=== PATIENT | female | born 1940 | race Caucasian/White ===

== ENCOUNTER 2017-01-17 12:29 | Inpatient (IN) ==
[2017-01-17] MEDS ORDERED: 0.9 % Sodium Chloride 500 ML IVC ONE (12:53)
[2017-01-17 13:30] LABS: Hemoglobin 7.4 g/dL (11.5-15.4); Red Cell Distribution Width 15.4 % (11.5-14.5)
[2017-01-17 13:33] LABS: Hematocrit 23.1 % (35.3-44.9); Mean Corpuscular Hemoglobin 28.6 pg (28.0-33.3); Mean Corpuscular Volume 89.2 fL (83.0-100.0); Mean Platelet Volume 10.7 fL (9.4-12.4); Platelet Count 245 K/mcL (140-400); Red Blood Count 2.59 M/mcL (3.82-4.97)
[2017-01-17 13:45] LABS: Alanine Aminotransferase 15 Units/L (0-55); Albumin/Globulin Ratio 0.4 (1.1-2.2); Alkaline Phosphatase 75 Units/L (38-126); Aspartate Amino Transferase 14 Units/L (5-34); BUN/Creatinine Ratio 17 (6-26); Bilirubin,Total 0.3 mg/dL (0.2-1.2); Blood Urea Nitrogen 13 mg/dL (7-20); Calcium 9.3 mg/dL (8.6-10.8); Carbon Dioxide 25 mEq/L (19-29); Chloride 97 mEq/L (98-109); Globulin 4.5 g/dL (2.4-3.5); Glucose 166 mg/dL (70-99); Osmolality,Calculated 276 (280-300); Potassium 3.7 mEq/L (3.5-4.5); Sodium 131 mEq/L (136-145); Total Protein 6.2 g/dL (6.0-8.3); eGFR For African Americans > 60 (> 60); eGFR For Non-African Americans > 60 (> 60)
[2017-01-17 13:46] LABS: Albumin 1.7 g/dL (3.5-5.0)
[2017-01-17 14:15] LABS: Eosinophils # 0.4 K/mcL (0.0-0.6); Lymphocytes # 0.8 K/mcL (0.6-4.6); Monocytes # 0.5 K/mcL (0.0-1.3); Neutrophils # 0.1 K/mcL (1.6-8.9)
[2017-01-17 14:16] LABS: Platelet Estimate Normal (Normal)
--- NOTE | 2017-01-17 14:29 | Emergency Department Note ---
Disposition Referrals: Philippe Scott Jr, MD [Primary Care Provider] - Forms: ED Satisfaction Letter General Adult HPI - General Chief complaint: ED Recheck/Abnormal Lab/Rx Stated complaint: Low Hgb Time Seen by Provider: 01/17/17 12:35 Source: patient, EMS Mode of arrival: private vehicle Limitations: no limitations Nursing Notes Reviewed: Yes Vital Signs Reviewed: Yes - History of Present Illness Pain Scale: 5 - Related Data Home Medications Medication Instructions Recorded Confirmed FLUoxetine HCl [Prozac] 40 mg PO DAILY 09/22/15 03/22/16 Glimepiride [Amaryl] 4 mg PO BID 09/22/15 03/22/16 Metformin [Glucophage] 1,000 mg PO BID 09/22/15 03/22/16 Metoprolol [Lopressor] 25 mg PO BID 09/22/15 03/22/16 Omeprazole [PriLOSEC] 20 mg PO DAILY 09/22/15 03/22/16 PredniSONE [Prednisone] 2.5 mg PO DAILY 09/22/15 03/22/16 Acetaminophen [Tylenol Arthritis] 1 tab PO BID 03/22/16 03/22/16 Amlodipine Besylate 10 mg PO DAILY 03/22/16 03/22/16 Insulin Glargine [Lantus] 30 unit SQ DAILY 03/22/16 03/22/16 Potassium Chloride [K-Tab ER] 20 meq PO DAILY 03/22/16 03/22/16 Allergies Allergy/AdvReac Type Severity Reaction Status Date / Time RODGER Inhibitors AdvReac See Verified 01/17/17 13:54 Comments ampicillin AdvReac See Verified 01/17/17 13:54 Comments lisinopril AdvReac See Verified 01/17/17 13:54 Comments Tetracycline AdvReac See Verified 01/17/17 13:54 Comments Past Medical History - Past Medical History Medical history: Reports: hypertension Surgical history: Reports: colectomy, other Psychiatric history: Reports: no psych history COMPLETION SUPERVISOR history: Reports: no COMPLETION SUPERVISOR history - Social History Smoking Status: Unknown if ever smoked Smokeless Tobacco Status: No Alcohol use: Reports: none Drug use: Reports: none Physical Exam - General Limitations: no limitations General appearance: alert Course Vital Signs Temperature 98.4 F 01/17/17 12:30 Pulse Rate 82 01/17/17 12:30 Respiratory Rate 16 01/17/17 12:30 Blood Pressure 157/71 01/17/17 12:30 O2 Sat by Pulse Oximetry 100 01/17/17 12:30 Temperature 98.4 F 01/17/17 12:30 Pulse Rate 80 01/17/17 13:59 Respiratory Rate 16 01/17/17 13:59 Blood Pressure 144/63 01/17/17 13:59 O2 Sat by Pulse Oximetry 98 01/17/17 13:59 Oxygen Delivery Oxygen Delivery Room Air Medical Decision Making - Lab Data Result diagrams: 01/17/17 13:19 01/17/17 13:19 Lab Results 01/17/17 01/17/17 01/17/17 Range/Units 13:19 13:19 13:19 WBC 1.9 L (4.3-11.1) K/mcL RBC 2.59 L (3.82-4.97) M/mcL Hgb 7.4 L (11.5-15.4) g/dL Hct 23.1 L (35.3-44.9) % MCV 89.2 (83.0-100.0) fL MCH 28.6 (28.0-33.3) pg MCHC 32.0 (31.6-35.5) g/dL RDW 15.4 H (11.5-14.5) % Plt Count 245 (140-400) K/mcL MPV 10.7 (9.4-12.4) fL Seg Neutrophils % 4.0 % Lymphocytes % 44.0 % Monocytes % 28.0 % Eosinophils % 22.0 % Myelocytes % 2.0 H (0) % Neutrophils # 0.1 L (1.6-8.9) K/mcL Lymphocytes # 0.8 (0.6-4.6) K/mcL Monocytes # 0.5 (0.0-1.3) K/mcL Eosinophils # 0.4 (0.0-0.6) K/mcL Platelet Estimate Normal (Normal) Sodium 131 L (136-145) mEq/L Potassium 3.7 (3.5-4.5) mEq/L Chloride 97 L (98-109) mEq/L Carbon Dioxide 25 (19-29) mEq/L BUN 13 (7-20) mg/dL Creatinine 0.77 (0.57-1.11) mg/dL Est GFR ( Amer) > 60 (> 60) Est GFR (Non-Af Amer) > 60 (> 60) BUN/Creatinine Ratio 17 (6-26) Glucose 166 H (70-99) mg/dL Calculated Osmolality 276 L (280-300) Calcium 9.3 (8.6-10.8) mg/dL Total Bilirubin 0.3 (0.2-1.2) mg/dL AST 14 (5-34) Units/L ALT 15 (0-55) Units/L Alkaline Phosphatase 75 (38-126) Units/L Serum Total Protein 6.2 (6.0-8.3) g/dL Albumin 1.7 L (3.5-5.0) g/dL Globulin 4.5 H (2.4-3.5) g/dL Albumin/Globulin Ratio 0.4 L (1.1-2.2) Blood Type A POSITIVE Antibody Screen NEGATIVE
--- NOTE | 2017-01-17 14:41 | Emergency Department Note ---
Disposition Clinical Impression: Chronic neutropenia Anemia Qualifiers: Anemia type: unspecified type Qualified Code(s): D64.9 - Anemia, unspecified Disposition: Admitted As Inpatient Condition: Fair Referrals: Philippe Scott Jr, MD [Primary Care Provider] - Forms: ED Satisfaction Letter Time of Disposition: 14:45 Weakness HPI - General Chief complaint: ED Recheck/Abnormal Lab/Rx Stated complaint: Low Hgb Time Seen by Provider: 01/17/17 12:35 Source: patient, EMS Mode of arrival: private vehicle Limitations: no limitations - History of Present Illness Pt Subjective Complaint: generalized weakness/fatigue Onset (ago): day(s) Duration: constant Location: generalized Pain Severity: none Pain Scale: 5 Improves with: rest Worsens with: exertion Associated symptoms: Reports: shortness of breath. Denies: dark stools - Related Data Home Medications Medication Instructions Recorded Confirmed FLUoxetine HCl [Prozac] 40 mg PO DAILY 09/22/15 03/22/16 Glimepiride [Amaryl] 4 mg PO BID 09/22/15 03/22/16 Metformin [Glucophage] 1,000 mg PO BID 09/22/15 03/22/16 Metoprolol [Lopressor] 25 mg PO BID 09/22/15 03/22/16 Omeprazole [PriLOSEC] 20 mg PO DAILY 09/22/15 03/22/16 PredniSONE [Prednisone] 2.5 mg PO DAILY 09/22/15 03/22/16 Acetaminophen [Tylenol Arthritis] 1 tab PO BID 03/22/16 03/22/16 Amlodipine Besylate 10 mg PO DAILY 03/22/16 03/22/16 Insulin Glargine [Lantus] 30 unit SQ DAILY 03/22/16 03/22/16 Potassium Chloride [K-Tab ER] 20 meq PO DAILY 03/22/16 03/22/16 Allergies Allergy/AdvReac Type Severity Reaction Status Date / Time RODGER Inhibitors AdvReac See Verified 01/17/17 13:54 Comments ampicillin AdvReac See Verified 01/17/17 13:54 Comments lisinopril AdvReac See Verified 01/17/17 13:54 Comments Tetracycline AdvReac See Verified 01/17/17 13:54 Comments All systems ED: reviewed and negative except as stated. Constitutional: Denies: fever, chills ENT ED: Denies: ear pain, throat pain, congestion Cardiovascular: Reports: dyspnea on exertion. Denies: chest pain, palpitations Respiratory: Denies: cough, wheezes Gastrointestinal: Reports: other (Patient denies any discoloration of her stool through her colostomy. In particular she denies seeing any blood and she denies any black discoloration.). Denies: abdominal pain, nausea, vomiting Genitourinary: Denies: hematuria Musculoskeletal: Denies: back pain Integumentary: Denies: rash Neurological: Denies: headache Endocrine: Reports: fatigue Hematological/Lymphatic: Denies: easy bleeding Past Medical History - Past Medical History Attestation: Yes The following information was validated with the patient. Source: patient, old records reviewed, obtained from family, nursing notes reviewed Medical history: Reports: hypertension, other (Chronic neutropenia of unknown etiology. She sees hematology oncology and gets Neupogen shots. She has never been known to be anemic according to family and according to old lab values) Surgical history: Reports: colectomy, other Psychiatric history: Reports: no psych history WRITER PRODUCER history: Reports: no WRITER PRODUCER history - Social History Smoking Status: Unknown if ever smoked Smokeless Tobacco Status: No Alcohol use: Reports: none Drug use: Reports: none Physical Exam - General Limitations: no limitations General appearance: alert, other (The patient looks wiped out) - Head Head exam: atraumatic, normocephalic - Eye Eye exam: Present: normal appearance, PERRL, EOMI - ENT ENT exam: normal exam, normal oropharynx, mucous membranes moist, normal external ear exam - Neck Neck exam: Present: normal inspection, full ROM - Chest Chest inspection: Present: normal inspection, symmetric chest wall rise. Absent : tenderness - Respiratory Respiratory exam: Present: normal lung sounds bilaterally. Absent: respiratory distress, wheezes - Cardiovascular Cardiovascular exam: Present: regular rate, normal rhythm, normal heart sounds - Abdominal Exam Abdominal exam: Present: soft, Non-Tender, normal bowel sounds, other ([place] site looks clean) - Rectal Exam Rectal exam: Present: other (The patient has a colostomy. The stool is brown and liquidy. I sent off a Hemoccult specimen.) - Extremities Exam Extremities exam: Present: normal inspection. Absent: pedal edema - Neurological Exam Neurological exam: Present: alert, oriented X3 - Psychiatric Psychiatric exam: Present: normal affect, normal mood - Skin Skin exam: Present: warm, dry. Absent: rash Course Course Narrative: Patient was seen by the physician residential living assistant, Jacoby Winter, prior to my arrival to the department. I took over the case. Patient had some routine labs done at the residential where she was and was found to be anemic. Those labs were repeated and she was thus sent here. We have already got a hemoglobin back at 7.4. Patient sounds pretty symptomatic with it and therefore I think we need to transfuse her. Questions whether this is related to her recent surgery or whether this is a new issue. She has a history of neutropenia but that is of unknown etiology. She had bone marrow biopsy done back in 2000 which did not show any evidence of leukemia. By history she denies any blood loss. We wait for the Hemoccult to come back to see if there is any GI loss although we may see some blood positive Hemoccult because of the recent revision of the colostomy. The stool itself does not look like a major source of blood loss. Patient will need to be admitted for blood transfusion and workup as to the cause of the blood loss. - Reevaluation(s) Reevaluation #1: Hemoccult was negative. Time: 15:12 - Consultations Consultation #1: Maribel nurse practitioner. I discussed the case with the hospitalist service. The patient has been accepted for transfusion and workup of this anemia. Time: 15:12 Vital Signs Temperature 98.4 F 01/17/17 12:30 Pulse Rate 82 01/17/17 12:30 Respiratory Rate 16 01/17/17 12:30 Blood Pressure 157/71 01/17/17 12:30 O2 Sat by Pulse Oximetry 100 01/17/17 12:30 Temperature 98.4 F 01/17/17 12:30 Pulse Rate 80 01/17/17 13:59 Respiratory Rate 16 01/17/17 13:59 Blood Pressure 144/63 01/17/17 13:59 O2 Sat by Pulse Oximetry 98 01/17/17 13:59 Oxygen Delivery Oxygen Delivery Room Air Weakness - Medical Records Medical records reviewed: Yes I reviewed the patient's medical records. - Lab Data Lab results reviewed: Yes I reviewed the patient's lab results. Result diagrams: 01/17/17 13:19 01/17/17 13:19 Lab Results 01/17/17 01/17/17 01/17/17 Range/Units 13:19 13:19 13:19 WBC 1.9 L (4.3-11.1) K/mcL RBC 2.59 L (3.82-4.97) M/mcL Hgb 7.4 L (11.5-15.4) g/dL Hct 23.1 L (35.3-44.9) % MCV 89.2 (83.0-100.0) fL MCH 28.6 (28.0-33.3) pg MCHC 32.0 (31.6-35.5) g/dL RDW 15.4 H (11.5-14.5) % Plt Count 245 (140-400) K/mcL MPV 10.7 (9.4-12.4) fL Seg Neutrophils % 4.0 % Lymphocytes % 44.0 % Monocytes % 28.0 % Eosinophils % 22.0 % Myelocytes % 2.0 H (0) % Neutrophils # 0.1 L (1.6-8.9) K/mcL Lymphocytes # 0.8 (0.6-4.6) K/mcL Monocytes # 0.5 (0.0-1.3) K/mcL Eosinophils # 0.4 (0.0-0.6) K/mcL Platelet Estimate Normal (Normal) Sodium 131 L (136-145) mEq/L Potassium 3.7 (3.5-4.5) mEq/L Chloride 97 L (98-109) mEq/L Carbon Dioxide 25 (19-29) mEq/L BUN 13 (7-20) mg/dL Creatinine 0.77 (0.57-1.11) mg/dL Est GFR ( Amer) > 60 (> 60) Est GFR (Non-Af Amer) > 60 (> 60) BUN/Creatinine Ratio 17 (6-26) Glucose 166 H (70-99) mg/dL Calculated Osmolality 276 L (280-300) Calcium 9.3 (8.6-10.8) mg/dL Total Bilirubin 0.3 (0.2-1.2) mg/dL AST 14 (5-34) Units/L ALT 15 (0-55) Units/L Alkaline Phosphatase 75 (38-126) Units/L Serum Total Protein 6.2 (6.0-8.3) g/dL Albumin 1.7 L (3.5-5.0) g/dL Globulin 4.5 H (2.4-3.5) g/dL Albumin/Globulin Ratio 0.4 L (1.1-2.2) Stool Occult Blood (Negative) Blood Type A POSITIVE Antibody Screen NEGATIVE Crossmatch See Detail 01/17/17 Range/Units 14:30 WBC (4.3-11.1) K/mcL RBC (3.82-4.97) M/mcL Hgb (11.5-15.4) g/dL Hct (35.3-44.9) % MCV (83.0-100.0) fL MCH (28.0-33.3) pg MCHC (31.6-35.5) g/dL RDW (11.5-14.5) % Plt Count (140-400) K/mcL MPV (9.4-12.4) fL Seg Neutrophils % % Lymphocytes % % Monocytes % % Eosinophils % % Myelocytes % (0) % Neutrophils # (1.6-8.9) K/mcL Lymphocytes # (0.6-4.6) K/mcL Monocytes # (0.0-1.3) K/mcL Eosinophils # (0.0-0.6) K/mcL Platelet Estimate (Normal) Sodium (136-145) mEq/L Potassium (3.5-4.5) mEq/L Chloride (98-109) mEq/L Carbon Dioxide (19-29) mEq/L BUN (7-20) mg/dL Creatinine (0.57-1.11) mg/dL Est GFR ( Amer) (> 60) Est GFR (Non-Af Amer) (> 60) BUN/Creatinine Ratio (6-26) Glucose (70-99) mg/dL Calculated Osmolality (280-300) Calcium (8.6-10.8) mg/dL Total Bilirubin (0.2-1.2) mg/dL AST (5-34) Units/L ALT (0-55) Units/L Alkaline Phosphatase (38-126) Units/L Serum Total Protein (6.0-8.3) g/dL Albumin (3.5-5.0) g/dL Globulin (2.4-3.5) g/dL Albumin/Globulin Ratio (1.1-2.2) Stool Occult Blood Negative (Negative) Blood Type Antibody Screen Crossmatch
[2017-01-17] MEDS ORDERED: Lidocaine -MPF 1% 2 ML VIAL ID PRN (15:15)
[2017-01-17] MEDS ORDERED: Naloxone 0.4 MG/ML INJ IVP PRN (19:39)
--- NOTE | 2017-01-17 20:09 | Internal Med History&Physical ---
<RandolphMarietta M - Last Filed: 01/18/17 00:03> Date of Encounter: 01/17/17 Time of Encounter: 19:53 Assessment and Plan (1) Anemia Current visit: Yes Status: Acute Patient with Hgb of 7.4. She had Hip fracture with surgical repair 3 weeks ago. Stool occult is negative. Possibly acute blood loss anemia related to recent surgery. Hold Lovenox for concern for bleeding Transfuse 2 units and recheck CBC in the morning Check iron studies with pre-transfusion bloodwork, B12, Folate in the morning. Qualifiers: Anemia type: unspecified type Qualified Code(s): D64.9 - Anemia, unspecified (2) Chronic neutropenia Current visit: Yes Status: Acute Patient with chronic neutropenia, eing followed by Heme/onc as an outpatient and gets periodic neupogen injections. WBC of 1.9 is consistent with her baseline. 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 Ostomy appears beefy red and output is soft and brown. Colostomy care ordered. (4) Type 2 diabetes mellitus Current visit: No Status: Acute diabetic diet hold home metformin and glimeperide check blood sugars ACHS sliding scale correction dose insulin ACHS hypoglycemic protocol. Qualifiers: Diabetes mellitus complication status: without complication Diabetes mellitus longterm insulin use: without bed bug exterminator use Qualified Code(s): E11.9 - Type 2 diabetes mellitus without complications (5) DVT prophylaxis Current visit: Yes Status: Acute Ambulate with assistance. anti-embolic stockings She has been on Lovenox for DVT prophylaxis post orthosurgery. However, with anemia and concern for bleeding, will hold for now. Internal Medicine - H&P: HPI Chief complaint: weakness and fatigue Admitted From: Emergency Dept Plans for Post Hospital Care: Transfer Shelter Facility History of present illness: Ms. Hardy is a 76 year old female with hypertension, type 2 diabetes, rheumatoid arthritis, chronic neutropenia, Colectomy with colostomy for diverticulitis, and recent right hip fracture with surgical repair 3 weeks ago, who was sent to the ED today by her SNF for low hgb. She reports she has been feeling weak, tired and short of breath. She denies any nausea, vomiting, headache, chest pain, palpitations. She denies any signs or symptoms of bleeding. Her colostomy output has been normal, brown for her. She has been on lovenox for post-ortho surgery DVT prophylaxis. Evaluation in the ED showed Hgb of 7.4. WBC of 1.9 consistent with her baseline, she gets neupogen shots with heme/onc on a regular basis. Stool hemoccult was negative. On exam, patient is drowsy, but arousable, oriented, in no distress. Lungs are clear to auscultation bilaterally, heart has regular rate and rhythm. Past Med Surg Social Fam HX - Past Medical History Medical history: diabetes, hypertension, RA, other (chronic neutropenia) Psychiatric history: no psych history - Past Surgical History Surgical History: colectomy, colostomy, hip replacement, other - Social History Smoking Status: Unknown if ever smoked Smokeless Tobacco Status: No Alcohol use: none Drug use: none Internal Medicine - H&P: Meds FLUoxetine HCl [Prozac] 40 mg PO DAILY 09/22/15 [History] Glimepiride [Amaryl] 4 mg PO QAM 09/22/15 [History] Metformin [Glucophage] 1,000 mg PO BID 09/22/15 [History] Metoprolol [Lopressor] 25 mg PO BID 09/22/15 [History] Omeprazole [PriLOSEC] 20 mg PO DAILY 09/22/15 [History] Amlodipine Besylate 10 mg PO DAILY 03/22/16 [History] Potassium Chloride [K-Tab ER] 20 meq PO QPM 03/22/16 [History] Calcium Citrate 400 mg PO TID 01/17/17 [History] Cholecalciferol (D-3) [Vitamin D] 2,000 unit PO DAILY 01/17/17 [History] Docusate [Colace] 100 mg PO BID 01/17/17 [History] Enoxaparin [Lovenox] 40 mg SQ DAILY 01/17/17 [History] Fluconazole [Diflucan] 200 mg PO DAILY 01/17/17 [History] Levofloxacin [Levaquin] 500 mg PO DAILY 01/17/17 [History] Magnesium 200 mg PO DAILY 01/17/17 [History] Metoclopramide HCl 5 mg PO TID 01/17/17 [History] OxyCODONE Immed Rel [Roxicodone 5 MG] 5 mg PO Q4HR PRN 01/17/17 [History] Sennosides [Senna] 8.6 mg PO BID 01/17/17 [History] Sucralfate [Carafate] 1 gm PO TIDAC 01/17/17 [History] Allergies RODGER Inhibitors Adverse Reaction (Verified 01/17/17 13:54) See Comments UNSURE ampicillin Adverse Reaction (Verified 01/17/17 13:54) See Comments lisinopril Adverse Reaction (Verified 01/17/17 13:54) See Comments Tetracycline Adverse Reaction (Verified 01/17/17 13:54) See Comments All Systems PM: A 10-system review of systems was performed and is negative for pertinent findings except as documented above in the HPI. - Constitutional Constitutional: fatigue, weakness, no chills, no fever(s), no night sweats - EENT Eyes: no change in vision, no discharge, no pain, no photophobia Ears: no ear discharge, no ear pain, no tinnitus Nose, mouth and throat: no dysphagia, no nasal discharge, no neck pain, no sore throat - Cardiovascular Cardiovascular ROS IM: dyspnea on exertion, no chest pain, no diaphoresis, no dyspnea, no lightheadedness, no palpitations, no syncope - Respiratory Respiratory: dyspnea on exertion, no cough, no dyspnea, no wheezing, no excessive phlegm production - Gastrointestinal Gastrointestinal: no abdominal pain, no diarrhea, no hematemesis, no hematochezia, no melena, no nausea, no vomiting - Genitourinary Genitourinary: no change in urinary stream, no dysuria, no flank pain, no hematuria - Musculoskeletal Musculoskeletal ROS IM: no numbness, no tingling - Integumentary Integumentary IM: no rash, no unusual bruising - Neurological Neurological ROS: no confusion, no convulsions, no focal weakness, no numbness, no tingling, no tremor(s) - Hematologic/Lymphatic Hematologic/Lymphatic: no easy bruising - Constitutional Vitals: Temp Pulse Resp BP Pulse Ox 98.3 F 70 16 142/64 95 01/17/17 18:09 01/17/17 18:09 01/17/17 18:09 01/17/17 18:09 01/17/17 18:07 General appearance: Present: A&O X 3, no acute distress - Head Head exam: Present: atraumatic, normocephalic - Eye Eye exam: Present: PERRL, conjuntiva pink, sclera anicteric Pupils: Present: PERRL - Neck Neck exam general surgery: Present: supple, trachea midline. Absent: lymphadenopathy - Respiratory Respiratory exam: Present: CTAB. Absent: accessory muscle use, rales, rhonchi, wheezes - Cardiovascular Cardiovascular exam: Present: RRR, +S1, +S2. Absent: diastolic murmur, gallop, rubs, systolic murmur - GI/Abdominal GI/Abdominal exam: Present: normal bowel sounds, soft, no peritoneal signs. Absent: distended, tenderness - Extremities Exam Extremities exam: Present: warm, radial pulses palpable and symetrical. Absent : calf tenderness, cyanotic, pedal edema - Neurological Exam Neurological exam: Present: CN II-XII intact, oriented X3, no focal deficits. Absent: facial droop, speech deficit - Skin Skin exam: Present: dry, intact Internal Med - H&P Results - Labs CBC & Chem 7: 01/17/17 13:19 01/17/17 13:19 Labs: All Lab Results (24 Hours) 01/17/17 01/17/17 01/17/17 Range/Units 13:19 13:19 13:19 WBC 1.9 L (4.3-11.1) K/mcL RBC 2.59 L (3.82-4.97) M/mcL Hgb 7.4 L (11.5-15.4) g/dL Hct 23.1 L (35.3-44.9) % MCV 89.2 (83.0-100.0) fL MCH 28.6 (28.0-33.3) pg MCHC 32.0 (31.6-35.5) g/dL RDW 15.4 H (11.5-14.5) % Plt Count 245 (140-400) K/mcL MPV 10.7 (9.4-12.4) fL Seg Neutrophils % 4.0 % Lymphocytes % 44.0 % Monocytes % 28.0 % Eosinophils % 22.0 % Myelocytes % 2.0 H (0) % Neutrophils # 0.1 L (1.6-8.9) K/mcL Lymphocytes # 0.8 (0.6-4.6) K/mcL Monocytes # 0.5 (0.0-1.3) K/mcL Eosinophils # 0.4 (0.0-0.6) K/mcL Platelet Estimate Normal (Normal) Sodium 131 L (136-145) mEq/L Potassium 3.7 (3.5-4.5) mEq/L Chloride 97 L (98-109) mEq/L Carbon Dioxide 25 (19-29) mEq/L BUN 13 (7-20) mg/dL Creatinine 0.77 (0.57-1.11) mg/dL Est GFR ( Amer) > 60 (> 60) Est GFR (Non-Af Amer) > 60 (> 60) BUN/Creatinine Ratio 17 (6-26) Glucose 166 H (70-99) mg/dL Calculated Osmolality 276 L (280-300) Calcium 9.3 (8.6-10.8) mg/dL Total Bilirubin 0.3 (0.2-1.2) mg/dL AST 14 (5-34) Units/L ALT 15 (0-55) Units/L Alkaline Phosphatase 75 (38-126) Units/L Serum Total Protein 6.2 (6.0-8.3) g/dL Albumin 1.7 L (3.5-5.0) g/dL Globulin 4.5 H (2.4-3.5) g/dL Albumin/Globulin Ratio 0.4 L (1.1-2.2) Stool Occult Blood (Negative) Blood Type A POSITIVE Antibody Screen NEGATIVE Crossmatch See Detail 01/17/17 Range/Units 14:30 WBC (4.3-11.1) K/mcL RBC (3.82-4.97) M/mcL Hgb (11.5-15.4) g/dL Hct (35.3-44.9) % MCV (83.0-100.0) fL MCH (28.0-33.3) pg MCHC (31.6-35.5) g/dL RDW (11.5-14.5) % Plt Count (140-400) K/mcL MPV (9.4-12.4) fL Seg Neutrophils % % Lymphocytes % % Monocytes % % Eosinophils % % Myelocytes % (0) % Neutrophils # (1.6-8.9) K/mcL Lymphocytes # (0.6-4.6) K/mcL Monocytes # (0.0-1.3) K/mcL Eosinophils # (0.0-0.6) K/mcL Platelet Estimate (Normal) Sodium (136-145) mEq/L Potassium (3.5-4.5) mEq/L Chloride (98-109) mEq/L Carbon Dioxide (19-29) mEq/L BUN (7-20) mg/dL Creatinine (0.57-1.11) mg/dL Est GFR ( Amer) (> 60) Est GFR (Non-Af Amer) (> 60) BUN/Creatinine Ratio (6-26) Glucose (70-99) mg/dL Calculated Osmolality (280-300) Calcium (8.6-10.8) mg/dL Total Bilirubin (0.2-1.2) mg/dL AST (5-34) Units/L ALT (0-55) Units/L Alkaline Phosphatase (38-126) Units/L Serum Total Protein (6.0-8.3) g/dL Albumin (3.5-5.0) g/dL Globulin (2.4-3.5) g/dL Albumin/Globulin Ratio (1.1-2.2) Stool Occult Blood Negative (Negative) Blood Type Antibody Screen Crossmatch <Janell Rosario R - Last Filed: 01/18/17 07:31> Internal Medicine - H&P: HPI History of present illness: Ms. Hardy is a 76 year old female All Systems PM: A 10-system review of systems was performed and is negative for pertinent findings except as documented above in the HPI. - Constitutional Vitals: Temp Pulse Resp BP Pulse Ox 97.9 F 84 16 156/77 96 01/18/17 07:02 01/18/17 07:02 01/18/17 07:02 01/18/17 07:02 01/18/17 07:02 Internal Med - H&P Results - Labs CBC & Chem 7: 01/17/17 13:19 01/17/17 13:19 - Attending Attestation I evaluated the patient and my medical decision-making was reviewed with the WHIP OPERATOR/ Advanced Practice Nurse. I agree with the documented findings, disposition and treatment plan as described except to the extent set forth below. 76-year-old female with recent history of right hip fracture s/p surgery. Was feeling weak and tired. Was anemic with hemoglobin of 6.8. Labs at this admission showed Hb of 7.4 and WBC of 1.9 (chronic). Fecal occult blood was negative. O/E: Not in acute distress. Systolic murmur present. Lungs clear to auscultation. Normocytic anemia: Possibly post operative from recent surgery. Check iron profile/vit B12 and folate. Transfuse PRBC. Hold Lovenox, until bleeding source is excluded. Can resume Lovenox, if no source of bleeding.
[2017-01-17] MEDS ORDERED: *HR* Dextrose 50 % in Water (Syg) 50 ML SYRINGE IVP PRN (20:21)
[2017-01-17] MEDS ORDERED: D5% in Water 1,000 ML IV PRN (20:21)
[2017-01-17] MEDS ORDERED: Dextrose Gel 15 GM PO PRN ×2 (20:21)
[2017-01-17] MEDS: Insulin LISPRO 300 UNITS/3 ML VIAL SQ SCH (22:03)
[2017-01-17] MEDS: Sennosides 8.6 MG TABLET PO SCH (22:03)
[2017-01-17] MEDS: Pantoprazole 40 MG VIAL IVP SCH (22:03)
[2017-01-17] MEDS: *HR* OxyCODONE Immed Rel 5 MG TABLET PO PRN (22:48)
[2017-01-17] MEDS ORDERED: 0.9 % Sodium Chloride 250 ML ONE (22:59)
[2017-01-17 23:43] LABS: % Iron Saturation 7 % (15-50); Iron 14 mcg/dL (50-170); Transferrin 140 mg/dL (180-382)
[2017-01-18] MEDS ORDERED: Acetaminophen 325 MG TABLET PO PRN (04:10)
[2017-01-18 08:35] LABS: Red Cell Distribution Width 14.8 % (11.5-14.5)
[2017-01-18 08:38] LABS: Hematocrit 29.1 % (35.3-44.9); Hemoglobin 9.8 g/dL (11.5-15.4); Immature Platelets 2.6 % (1.1-6.1); Mean Corpuscular HGB Conc 33.7 g/dL (31.6-35.5); Mean Corpuscular Hemoglobin 29.9 pg (28.0-33.3); Mean Corpuscular Volume 88.7 fL (83.0-100.0); Mean Platelet Volume 10.5 fL (9.4-12.4); Platelet Count 247 K/mcL (140-400); Red Blood Count 3.28 M/mcL (3.82-4.97)
[2017-01-18 08:39] LABS: INR 1.2; Prothrombin Time 13.1 Seconds (9.4-12.1)
[2017-01-18 08:47] LABS: BUN/Creatinine Ratio 13 (6-26); Blood Urea Nitrogen 9 mg/dL (7-20); Calcium 8.7 mg/dL (8.6-10.8); Carbon Dioxide 25 mEq/L (19-29); Chloride 99 mEq/L (98-109); Glucose 162 mg/dL (70-99); Osmolality,Calculated 276 (280-300); Potassium 3.7 mEq/L (3.5-4.5); Sodium 132 mEq/L (136-145); eGFR For African Americans > 60 (> 60); eGFR For Non-African Americans > 60 (> 60)
[2017-01-18 09:08] LABS: Large Platelets Present (Not Present); Platelet Estimate Normal (Normal)
[2017-01-18 09:10] LABS: Eosinophils # 0.1 K/mcL (0.0-0.6); Lymphocytes # 0.5 K/mcL (0.6-4.6); Monocytes # 0.7 K/mcL (0.0-1.3); Neutrophils # 0.3 K/mcL (1.6-8.9)
[2017-01-18] MEDS: Pantoprazole 40 MG VIAL IVP SCH (09:18)
[2017-01-18] MEDS: Insulin LISPRO 300 UNITS/3 ML VIAL SQ SCH ×4 (09:18→21:59)
[2017-01-18] MEDS: FLUoxetine 20 MG CAPSULE PO SCH (09:19)
[2017-01-18] MEDS: Sucralfate 1 GM TABLET PO SCH ×3 (09:20→17:09)
[2017-01-18] MEDS: Cholecalciferol (D-3) 1,000 UNIT TABLET PO SCH (09:20)
[2017-01-18] MEDS: amLODIPine 5 MG TABLET PO SCH (09:21)
[2017-01-18] MEDS: Magnesium Oxide 400 MG TABLET PO SCH (09:21)
[2017-01-18] MEDS: Fluconazole 100 MG TABLET PO SCH (09:21)
[2017-01-18] MEDS: Sennosides 8.6 MG TABLET PO SCH ×2 (09:22→20:20)
[2017-01-18] MEDS: Lactobacillus 1 EACH CAP.SPRINK PO SCH ×2 (09:22→20:19)
[2017-01-18] MEDS: levoFLOXacin 500 MG TABLET PO SCH (09:22)
--- NOTE | 2017-01-18 09:45 | Internal Med Progress Note ---
Date of Encounter: 01/18/17 Time of Encounter: 09:00 - Assessment and plan (1) Anemia Current Visit: Yes Status: Acute Assessment and plan: Etiology is undetermine. Differential diagnosis included recent surgical blood loss for hip surgery one week ago in [facility], or chronic iron deficiency anemia. We will obtain [facility] medical record. Hemoglobin elevated after transfusion. Guaiac test negative. Recent colonoscopy 11 months ago. Qualifiers: Anemia type: unspecified type Qualified Code(s): D64.9 - Anemia, unspecified (2) Hypertension Current Visit: Yes Status: Acute Assessment and plan: Continue home medications. Qualifiers: Hypertension type: essential hypertension Qualified Code(s): I10 - Essential (primary) hypertension (3) Chronic neutropenia Current Visit: Yes Status: Acute Assessment and plan: Stable. Closely monitor (4) DVT prophylaxis Current Visit: Yes Status: Acute Assessment and plan: SCD, lovenox subcutaneously. 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 Her past medical history is significant for diabetes, hypertension, diverticulitis S/P colostomy, hip fracture S/P surgery on last Sunday in [facility]. Patient was seen and examined. She is still weak. Had 2 units of blood transfusion, hemoglobin 9.8 now. Previous chart reviewed, her hemoglobin level is 12 in Feb 2016. Iron deficiency with iron level 14. Not sure low hemoglobin is due to recent surgery blood loss or chronic iron deficiency. We will obtain [facility] medical record. Patient had a colonoscopy done 11 months ago, negative to malignancy. - Constitutional Vitals: Temp Pulse Resp BP Pulse Ox 97.9 F 84 16 156/77 96 01/18/17 07:02 01/18/17 07:02 01/18/17 07:02 01/18/17 07:02 01/18/17 07:02 General appearance: Present: A&O X 3, no acute distress, answers questions appropriately - Head Head exam: Present: atraumatic, normocephalic - Eye Eye exam: Present: PERRL, conjuntiva pink, sclera anicteric Pupils: Present: PERRL - Neck Neck exam general surgery: Present: supple, trachea midline. Absent: lymphadenopathy - Respiratory Respiratory exam: Present: CTAB. Absent: accessory muscle use, rales, rhonchi, wheezes - Cardiovascular Cardiovascular exam: Present: RRR, +S1, +S2. Absent: diastolic murmur, gallop, rubs, systolic murmur - GI/Abdominal GI/Abdominal exam: Present: normal bowel sounds, soft, no peritoneal signs. Absent: distended, tenderness Additional comments: Colostomy in place. - Extremities Exam Extremities exam: Present: warm, radial pulses palpable and symetrical. Absent : calf tenderness, cyanotic, pedal edema - Neurological Exam Neurological exam: Present: CN II-XII intact, oriented X3, no focal deficits. Absent: pronater drift, facial droop, speech deficit - Skin Skin exam: Present: dry, intact Internal Medicine: Result - Labs CBC & Chem 7: 01/18/17 08:24 01/18/17 08:24 Labs: Short CBC 01/18/17 Range/Units 08:24 WBC 1.5 L (4.3-11.1) K/mcL Hgb 9.8 L D (11.5-15.4) g/dL Hct 29.1 L (35.3-44.9) % Plt Count 247 (140-400) K/mcL Neutrophils # 0.3 L (1.6-8.9) K/mcL BMP 01/18/17 08:24 Sodium 132 L Potassium 3.7 Chloride 99 Carbon Dioxide 25 BUN 9 Creatinine 0.70 Glucose 162 H Calcium 8.7 - ABG Interpretation ABG results: PT/INR, D-dimer PT 13.1 Seconds (9.4-12.1) H 01/18/17 08:24 Consult Discharge Plan - Plan Referrals: Philippe Scott Jr, MD [Primary Care Provider] -
[2017-01-18 10:29] LABS: Folate 11.1 ng/mL (7.0-31.4)
[2017-01-18] MEDS ORDERED: *HR* Heparin 5,000 UNIT/ML VIAL SQ SCH (18:00)
[2017-01-18] MEDS: *HR* OxyCODONE Immed Rel 5 MG TABLET PO PRN (20:19)
[2017-01-19] MEDS: *HR* OxyCODONE Immed Rel 5 MG TABLET PO PRN ×3 (02:44→21:58)
[2017-01-19 05:24] LABS: Hemoglobin 9.6 g/dL (11.5-15.4); Mean Corpuscular Hemoglobin 29.1 pg (28.0-33.3); Red Cell Distribution Width 14.8 % (11.5-14.5)
[2017-01-19 05:26] LABS: Mean Corpuscular HGB Conc 33.1 g/dL (31.6-35.5); Mean Corpuscular Volume 87.9 fL (83.0-100.0); Mean Platelet Volume 10.5 fL (9.4-12.4); Platelet Count 242 K/mcL (140-400)
[2017-01-19] MEDS: *HR* Enoxaparin 40 MG/0.4 ML SYRINGE SQ SCH (05:45)
[2017-01-19 05:49] LABS: BUN/Creatinine Ratio 15 (6-26); Blood Urea Nitrogen 11 mg/dL (7-20); Calcium 8.7 mg/dL (8.6-10.8); Carbon Dioxide 26 mEq/L (19-29); Chloride 96 mEq/L (98-109); Glucose 133 mg/dL (70-99); Osmolality,Calculated 271 (280-300); Sodium 130 mEq/L (136-145); eGFR For African Americans > 60 (> 60); eGFR For Non-African Americans > 60 (> 60)
[2017-01-19 06:28] LABS: Eosinophils # 0.2 K/mcL (0.0-0.6); Lymphocytes # 0.6 K/mcL (0.6-4.6); Monocytes # 0.4 K/mcL (0.0-1.3); Neutrophils # 0.4 K/mcL (1.6-8.9); Platelet Estimate Normal (Normal)
[2017-01-19] MEDS: Pantoprazole 40 MG VIAL IVP SCH (08:39)
[2017-01-19] MEDS: Sennosides 8.6 MG TABLET PO SCH ×2 (08:39→21:55)
[2017-01-19] MEDS: Insulin LISPRO 300 UNITS/3 ML VIAL SQ SCH ×4 (08:39→22:06)
[2017-01-19] MEDS: FLUoxetine 20 MG CAPSULE PO SCH (08:39)
[2017-01-19] MEDS: Fluconazole 100 MG TABLET PO SCH (08:40)
[2017-01-19] MEDS: Lactobacillus 1 EACH CAP.SPRINK PO SCH ×2 (08:40→21:54)
[2017-01-19] MEDS: Cholecalciferol (D-3) 1,000 UNIT TABLET PO SCH (08:40)
[2017-01-19] MEDS: levoFLOXacin 500 MG TABLET PO SCH (08:40)
[2017-01-19] MEDS: Sucralfate 1 GM TABLET PO SCH ×3 (08:40→16:57)
[2017-01-19] MEDS: Magnesium Oxide 400 MG TABLET PO SCH (08:40)
[2017-01-19] MEDS: amLODIPine 5 MG TABLET PO SCH (08:41)
[2017-01-19] MEDS ORDERED: 0.9 % Sodium Chloride 1,000 ML IVC SCH (12:45)
--- NOTE | 2017-01-19 17:41 | Internal Med Progress Note ---
Date of Encounter: 01/19/17 Time of Encounter: 10:00 - Assessment and plan (1) Anemia Current Visit: Yes Status: Acute Assessment and plan: Etiology is undetermine. Differential diagnosis included recent surgical blood loss for hip surgery one week ago in [facility], or chronic iron deficiency anemia. We will obtain [facility] medical record. Hemoglobin elevated after transfusion and stable. Guaiac test negative. Recent colonoscopy 11 months ago, unremarkable. Will order CT Abd and chest. Check UA. Obtain [facility] medical record. Qualifiers: Anemia type: iron deficiency Iron deficiency anemia type: other iron deficiency Qualified Code(s): D50.8 - Other iron deficiency anemias (2) Hypertension Current Visit: Yes Status: Acute Assessment and plan: Continue home medications. Qualifiers: Hypertension type: essential hypertension Qualified Code(s): I10 - Essential (primary) hypertension (3) Chronic neutropenia Current Visit: Yes Status: Acute Assessment and plan: Stable. Closely monitor (4) DVT prophylaxis Current Visit: Yes Status: Acute Assessment and plan: SCD, lovenox subcutaneously. 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 Her past medical history is significant for diabetes, hypertension, diverticulitis S/P colostomy, hip fracture S/P surgery on last Sunday in [facility]. Patient was seen and examined. She still feels weak. Has good appetite and intake. H/H stable after transfusion. We will obtain [facility] medical record to see pre-surgery hemoglobin. Will order CT abd/pelvis and chest to screen malignancy. FOBT negative, will check UA. - Constitutional Vitals: Temp Pulse Resp BP Pulse Ox 99.3 F 82 16 137/51 95 01/19/17 15:46 01/19/17 15:46 01/19/17 15:46 01/19/17 15:46 01/19/17 15:46 General appearance: Present: A&O X 3, no acute distress, answers questions appropriately - Head Head exam: Present: atraumatic, normocephalic - Eye Eye exam: Present: PERRL, conjuntiva pink, sclera anicteric Pupils: Present: PERRL - Neck Neck exam general surgery: Present: supple, trachea midline. Absent: lymphadenopathy - Respiratory Respiratory exam: Present: CTAB. Absent: accessory muscle use, rales, rhonchi, wheezes - Cardiovascular Cardiovascular exam: Present: RRR, +S1, +S2. Absent: diastolic murmur, gallop, rubs, systolic murmur - GI/Abdominal GI/Abdominal exam: Present: normal bowel sounds, soft, no peritoneal signs. Absent: distended, tenderness - Extremities Exam Extremities exam: Present: warm, radial pulses palpable and symetrical. Absent : calf tenderness, cyanotic, pedal edema - Neurological Exam Neurological exam: Present: CN II-XII intact, oriented X3, no focal deficits. Absent: pronater drift, facial droop, speech deficit - Skin Skin exam: Present: dry, intact Internal Medicine: Result - Labs CBC & Chem 7: 01/19/17 05:11 01/19/17 05:11 Labs: Short CBC 01/19/17 Range/Units 05:11 WBC 1.6 L (4.3-11.1) K/mcL Hgb 9.6 L (11.5-15.4) g/dL Hct 29.0 L (35.3-44.9) % Plt Count 242 (140-400) K/mcL Neutrophils # 0.4 L (1.6-8.9) K/mcL BMP 01/19/17 05:11 Sodium 130 L Potassium 4.0 Chloride 96 L Carbon Dioxide 26 BUN 11 Creatinine 0.74 Glucose 133 H Calcium 8.7 - ABG Interpretation ABG results: PT/INR, D-dimer PT 13.1 Seconds (9.4-12.1) H 01/18/17 08:24 - Impressions Impressions Abdomen/Pelvis CT 01/19/17 15:00 IMPRESSION: 1. There is an acute comminuted right proximal femur fracture status post ORIF with posttraumatic/surgical soft tissue changes of the hip. Probable acute on chronic mild T7 compression fracture with no significant posterior cortical displacement. 2. There is no dominant body wall or intrathoracic/abdominal/pelvic hematoma. 3. Cardiomegaly with atherosclerosis. There is mild thoracic atelectasis with no acute congestive heart failure, pneumonia, or findings concerning for thoracic malignancy. 4. Stable enhancing pancreatic tail mass. 5. New ill-defined left hepatic lobe multifocal mass lesions, metastatic disease cannot be excluded. No biliary obstruction. 6. Nonobstructing right renal pelvis 8 mm calculus with evidence of chronic renal pelvis inflammation. 7. Status post partial colonic resection with left lower quadrant ileostomy. Stable chronic midline incisional and right lateral abdominal loss of domain with prior hernia repairs. 8. Extensive bowel adhesions with no acute abnormality. D/ / 01/19/2017 16:42:12 Humberto Flor MD / stacey Interpreting Provider: Humberto Flor MD Chest CT 01/19/17 15:00 IMPRESSION: 1. There is an acute comminuted right proximal femur fracture status post ORIF with posttraumatic/surgical soft tissue changes of the hip. Probable acute on chronic mild T7 compression fracture with no significant posterior cortical displacement. 2. There is no dominant body wall or intrathoracic/abdominal/pelvic hematoma. 3. Cardiomegaly with atherosclerosis. There is mild thoracic atelectasis with no acute congestive heart failure, pneumonia, or findings concerning for thoracic malignancy. 4. Stable enhancing pancreatic tail mass. 5. New ill-defined left hepatic lobe multifocal mass lesions, metastatic disease cannot be excluded. No biliary obstruction. 6. Nonobstructing right renal pelvis 8 mm calculus with evidence of chronic renal pelvis inflammation. 7. Status post partial colonic resection with left lower quadrant ileostomy. Stable chronic midline incisional and right lateral abdominal loss of domain with prior hernia repairs. 8. Extensive bowel adhesions with no acute abnormality. D/ / 01/19/2017 16:42:12 Humberto Flor MD / nahiday Interpreting Provider: Humberto Flor MD Consult Discharge Plan - Plan Referrals: Philippe Scott Jr, MD [Primary Care Provider] - 01/25/17 10:00 am
[2017-01-20 04:30] LABS: Bilirubin,Urine Negative (Negative); Blood,Urine Moderate (Negative); Clarity,Urine Clear (Clear); Color,Urine Yellow (Yellow); Glucose,Urine (UA) Normal (Normal); Ketones,Urine Negative (Negative); Leukocyte Esterase,Urine Negative (Negative); Nitrite,Urine Negative (Negative); Protein,Urine 100 mg/dL (Neg-Trace); Specific Gravity,Urine > 1.030 (1.010-1.025); Urobilinogen,Urine Normal (Normal)
[2017-01-20 04:32] LABS: Bacteria,Urine None Seen per hpf (None-Few); Hyaline Casts,Urine None Seen per lpf (None-Few); RBC,Urine 30-50 per hpf (0-3); Squamous Epithelial Cell,Urine Many per lpf (None-Few); WBC,Urine 0-3 per hpf (0-3)
[2017-01-20] MEDS: *HR* OxyCODONE Immed Rel 5 MG TABLET PO PRN ×3 (05:54→22:08)
[2017-01-20] MEDS: *HR* Enoxaparin 40 MG/0.4 ML SYRINGE SQ SCH (05:54)
[2017-01-20 08:52] LABS: Hemoglobin 9.4 g/dL (11.5-15.4)
[2017-01-20] MEDS: Insulin LISPRO 300 UNITS/3 ML VIAL SQ SCH ×4 (08:54→22:23)
[2017-01-20 09:04] LABS: BUN/Creatinine Ratio 23 (6-26); Blood Urea Nitrogen 19 mg/dL (7-20); Calcium 8.7 mg/dL (8.6-10.8); Carbon Dioxide 22 mEq/L (19-29); Chloride 97 mEq/L (98-109); Glucose 201 mg/dL (70-99); Osmolality,Calculated 274 (280-300); Potassium 4.4 mEq/L (3.5-4.5); Sodium 128 mEq/L (136-145); eGFR For African Americans > 60 (> 60); eGFR For Non-African Americans > 60 (> 60)
[2017-01-20] MEDS: Magnesium Oxide 400 MG TABLET PO SCH (09:18)
[2017-01-20] MEDS: FLUoxetine 20 MG CAPSULE PO SCH (09:18)
[2017-01-20] MEDS: amLODIPine 5 MG TABLET PO SCH (09:18)
[2017-01-20] MEDS: Sucralfate 1 GM TABLET PO SCH ×3 (09:18→16:46)
[2017-01-20] MEDS: Cholecalciferol (D-3) 1,000 UNIT TABLET PO SCH (09:18)
[2017-01-20] MEDS: Sennosides 8.6 MG TABLET PO SCH ×2 (09:18→22:09)
[2017-01-20] MEDS: Lactobacillus 1 EACH CAP.SPRINK PO SCH ×2 (09:18→22:08)
--- NOTE | 2017-01-20 10:49 | Event Note ---
Date of Encounter: 01/20/17 Time of Encounter: 10:[address] abd report "new ill-defined left hepatic lobe mass lesions, metastatic disease cannot be excluded". I personally went to Dept of Radiology and discussed with Radiologist Dr Cesar. We reviewed pt's previous image studies and found same lesion is there already since 2009 and 2011, most likely fat tissue. No further test recommended by radiologist. Dr Cesar's input is highly appreciated.
[2017-01-20] MEDS ORDERED: FUROSEMIDE IVPB ONE ×2 (12:21→12:41)
[2017-01-20] MEDS ORDERED: SODIUM CHLORIDE 0.9% IVPB ONE ×2 (12:21→12:41)
[2017-01-20] MEDS ORDERED: Furosemide 20 MG/2 ML VIAL IVP ONE (12:29)
--- NOTE | 2017-01-20 14:23 | Urology - Consult Note ---
Date of Encounter: 01/20/17 Time of Encounter: 14:21 - Assessment and Plan (1) Microscopic hematuria Current Visit: Yes Status: Acute Assessment and plan: 76-year-old woman with a history of anemia and microscopic hematuria. Her urine is clear yellow currently. I do not feel that her blood losses secondary to bleeding from her urinary tract. She received 2 units of blood. Her blood counts have improved. I reviewed her CT scan and see no evidence of perinephric hematomas. She may have anemia of chronic disease or blood loss from her recent surgeries. In the future we can consider cystoscopy to rule out any lower urinary tract disease. For now she does not require any urgent urologic intervention. (2) Nephrolithiasis Current Visit: Yes Status: Acute Assessment and plan: She has a stone within her right renal pelvis. There is no was hydronephrosis. At this point, we can observe. We can consider ureteroscopy or shockwave lithotripsy in the future at the stone becomes bothersome to her. Urology CN:HPI Consult date: 01/20/17 Reason for consult Urology: Other (microscopic hematuria) Requesting physician: Rashaad Pride History of present illness: Ms. Hardy is a 76 year old female with hypertension, type 2 diabetes, rheumatoid arthritis, chronic neutropenia, Colectomy with colostomy for diverticulitis, and recent right hip fracture with surgical repair 3 weeks ago, who was sent to the ED today by her SNF for low hgb. She had a CT scan which showed evidence of a right renal pelvis stone but no evidence of hydronephrosis. Her urinalysis showed microscopic hematuria. She denies any flank pain. She denies any difficulty with urinating. She does have an indwelling catheter. Past Med Surg Social Fam HX - Past Medical History Medical history: diabetes, hypertension, RA, other (chronic neutropenia) Psychiatric history: no psych history - Past Surgical History Surgical History: colectomy, colostomy, hip replacement, other - Social History Smoking Status: Unknown if ever smoked Smokeless Tobacco Status: No Alcohol use: none Drug use: none - Family History Mother Hx Family Genitourinary Disorders: No (No stones.) Medications and Allergies FLUoxetine HCl [Prozac] 40 mg PO DAILY 09/22/15 [History] Glimepiride [Amaryl] 4 mg PO QAM 09/22/15 [History] Metformin [Glucophage] 1,000 mg PO BID 09/22/15 [History] Metoprolol [Lopressor] 25 mg PO BID 09/22/15 [History] Omeprazole [PriLOSEC] 20 mg PO DAILY 09/22/15 [History] Amlodipine Besylate 10 mg PO DAILY 03/22/16 [History] Potassium Chloride [K-Tab ER] 20 meq PO QPM 03/22/16 [History] Calcium Citrate 400 mg PO TID 01/17/17 [History] Cholecalciferol (D-3) [Vitamin D] 2,000 unit PO DAILY 01/17/17 [History] Docusate [Colace] 100 mg PO BID 01/17/17 [History] Enoxaparin [Lovenox] 40 mg SQ DAILY 01/17/17 [History] Fluconazole [Diflucan] 200 mg PO DAILY 01/17/17 [History] Levofloxacin [Levaquin] 500 mg PO DAILY 01/17/17 [History] Magnesium 200 mg PO DAILY 01/17/17 [History] Metoclopramide HCl 5 mg PO TID 01/17/17 [History] OxyCODONE Immed Rel [Roxicodone 5 MG] 5 mg PO Q4HR PRN 01/17/17 [History] Sennosides [Senna] 8.6 mg PO BID 01/17/17 [History] Sucralfate [Carafate] 1 gm PO TIDAC 01/17/17 [History] Allergies RODGER Inhibitors Adverse Reaction (Verified 01/17/17 13:54) See Comments UNSURE ampicillin Adverse Reaction (Verified 01/17/17 13:54) See Comments lisinopril Adverse Reaction (Verified 01/17/17 13:54) See Comments Tetracycline Adverse Reaction (Verified 01/17/17 13:54) See Comments Review of Systems - Constitutional no chills, no fever(s) - EENT Nose, mouth and throat: no dizziness - Cardiovascular no chest pain - Respiratory no dyspnea - Gastrointestinal no nausea, no vomiting - Genitourinary Genitourinary: no flank pain, no hematuria - Musculoskeletal no back pain - Integumentary no erythema, no rash - Neurological no weakness - Psychiatric no suicidal ideation - Hematologic/Lymphatic no easy bleeding - Allergic/Immunologic no wheezing Exam Initial Vital Signs Temp Pulse Resp BP Pulse Ox 98.4 F 82 16 157/71 100 01/17/17 12:30 01/17/17 12:30 01/17/17 12:30 01/17/17 12:30 01/17/17 12:30 - General physical appearance Present: well developed, well nourished, no distress - Eyes Absent: icteric - ENT Present: normal nares - Neck Present: trachea midline - Respiratory Present: normal respiratory effort - Cardiovascular Cardiovascular exam IM: RRR - Abdomen Abdomen: Present: soft - Genitourinary Present: other (Hopkins catheter in place. Urine is clear.) Urology Results - Labs 01/20/17 08:45 01/20/17 08:45 Abnormal lab results WBC 1.6 K/mcL (4.3-11.1) L 01/19/17 05:11 RBC 3.30 M/mcL (3.82-4.97) L 01/19/17 05:11 Hgb 9.4 g/dL (11.5-15.4) L 01/20/17 08:45 Hct 29.0 % (35.3-44.9) L 01/20/17 08:45 RDW 14.8 % (11.5-14.5) H 01/19/17 05:11 Myelocytes % 2.0 % (0) H 01/17/17 13:19 Neutrophils # 0.4 K/mcL (1.6-8.9) L 01/19/17 05:11 Large Platelets Present (Not Present) A 01/18/17 08:24 PT 13.1 Seconds (9.4-12.1) H 01/18/17 08:24 Sodium 128 mEq/L (136-145) L 01/20/17 08:45 Chloride 97 mEq/L (98-109) L 01/20/17 08:45 Glucose 201 mg/dL (70-99) H 01/20/17 08:45 POC Glucose 214 (58-89) H 01/19/17 20:17 Calculated Osmolality 274 (280-300) L 01/20/17 08:45 Iron 14 mcg/dL (50-170) L 01/17/17 13:19 % Saturation 7 % (15-50) L 01/17/17 13:19 Transferrin 140 mg/dL (180-382) L 01/17/17 13:19 Albumin 1.7 g/dL (3.5-5.0) L 01/17/17 13:19 Globulin 4.5 g/dL (2.4-3.5) H 01/17/17 13:19 Albumin/Globulin Ratio 0.4 (1.1-2.2) L 01/17/17 13:19 Ur Specific [place] > 1.030 (1.010-1.025) H 01/20/17 04:12 Urine Protein 100 mg/dL (Neg-Trace) H 01/20/17 04:12 Urine Blood Moderate (Negative) H 01/20/17 04:12 Urine Microscopic RBC 30-50 per hpf (0-3) H 01/20/17 04:12 Ur Squamous Epith Cells Many per lpf (None-Few) H 01/20/17 04:12 Diabetes panel 01/20/17 Range/Units 08:45 Sodium 128 L (136-145) mEq/L Potassium 4.4 (3.5-4.5) mEq/L Chloride 97 L (98-109) mEq/L Carbon Dioxide 22 (19-29) mEq/L BUN 19 (7-20) mg/dL Creatinine 0.83 (0.57-1.11) mg/dL Glucose 201 H (70-99) mg/dL Calcium 8.7 (8.6-10.8) mg/dL Calcium panel 01/20/17 Range/Units 08:45 Calcium 8.7 (8.6-10.8) mg/dL Pituitary panel 01/20/17 Range/Units 08:45 Sodium 128 L (136-145) mEq/L Potassium 4.4 (3.5-4.5) mEq/L Chloride 97 L (98-109) mEq/L Carbon Dioxide 22 (19-29) mEq/L BUN 19 (7-20) mg/dL Creatinine 0.83 (0.57-1.11) mg/dL Glucose 201 H (70-99) mg/dL Calcium 8.7 (8.6-10.8) mg/dL Adrenal panel 01/20/17 Range/Units 08:45 Sodium 128 L (136-145) mEq/L Potassium 4.4 (3.5-4.5) mEq/L Chloride 97 L (98-109) mEq/L Carbon Dioxide 22 (19-29) mEq/L BUN 19 (7-20) mg/dL Creatinine 0.83 (0.57-1.11) mg/dL Glucose 201 H (70-99) mg/dL Calcium 8.7 (8.6-10.8) mg/dL All other labs normal. - Imaging CT scan - abdomen: report reviewed, image reviewed CT scan - pelvis: report reviewed, image reviewed Consult Discharge Plan - Plan Referrals: Philippe Scott Jr, MD [Primary Care Provider] - 01/25/17 10:00 am
--- NOTE | 2017-01-20 14:48 | Discharge Summary ---
Date of Encounter: 01/20/17 Time of Encounter: 13:00 - Discharge Diagnosis (1) Anemia Priority: Primary Status: Acute Qualifiers: Anemia type: iron deficiency Iron deficiency anemia type: other iron deficiency Qualified Code(s): D50.8 - Other iron deficiency anemias (2) Hypertension Priority: Secondary Status: Acute Qualifiers: Hypertension type: essential hypertension Qualified Code(s): I10 - Essential (primary) hypertension (3) Chronic neutropenia Priority: Secondary Status: Acute (4) DVT prophylaxis Priority: Secondary Status: Acute (5) Colostomy in place Priority: Secondary Status: Acute (6) Type 2 diabetes mellitus Priority: Secondary Status: Acute Qualifiers: Diabetes mellitus complication status: without complication Diabetes mellitus mcc insulin use: without mcc use Qualified Code(s): E11.9 - Type 2 diabetes mellitus without complications - Discharge Medications Prescriptions: OxyCODONE Immed Rel [Roxicodone 5 MG] 5 mg PO Q4HR PRN #20 tablet PRN Reason: Pain Ferrous Sulfate 325 mg PO DAILY@0800 #30 tablet Home Medications: Glimepiride [Amaryl] 4 mg PO QAM 09/22/15 [History] Metformin [Glucophage] 1,000 mg PO BID 09/22/15 [History] Metoprolol [Lopressor] 25 mg PO BID 09/22/15 [History] Omeprazole [PriLOSEC] 20 mg PO DAILY 09/22/15 [History] Amlodipine Besylate 10 mg PO DAILY 03/22/16 [History] Potassium Chloride [K-Tab ER] 20 meq PO QPM 03/22/16 [History] Calcium Citrate 400 mg PO TID 01/17/17 [History] Cholecalciferol (D-3) [Vitamin D] 2,000 unit PO DAILY 01/17/17 [History] Docusate [Colace] 100 mg PO BID 01/17/17 [History] Enoxaparin [Lovenox] 40 mg SQ DAILY 01/17/17 [History] Magnesium 200 mg PO DAILY 01/17/17 [History] Metoclopramide HCl 5 mg PO TID 01/17/17 [History] Sennosides [Senna] 8.6 mg PO BID 01/17/17 [History] Sucralfate [Carafate] 1 gm PO TIDAC 01/17/17 [History] Ferrous Sulfate 325 mg PO DAILY@0800 #30 tablet 01/20/17 [Rx] OxyCODONE Immed Rel [Roxicodone 5 MG] 5 mg PO Q4HR PRN #20 tablet 01/20/17 [Rx] Allergies/Adverse Reactions: Allergies RODGER Inhibitors Adverse Reaction (Verified 01/17/17 13:54) See Comments UNSURE ampicillin Adverse Reaction (Verified 01/17/17 13:54) See Comments lisinopril Adverse Reaction (Verified 01/17/17 13:54) See Comments Tetracycline Adverse Reaction (Verified 01/17/17 13:54) See Comments Procedures/tests Complete & Pending: Procedures Performed prior 72 hours Category Date Time Status CT abd pelvis w iv and oral [CT] Stat Cat Scan 01/19/17 15:[address] chest w con [CT] Stat Cat Scan 01/19/17 15:00 Completed - Notes to Outpatient Provider Patient has iron deficiency, iron pill added to home med. Please follow up hemoglobin. Date of admission: 01/18/17 15:28 Primary care physician: Philippe Scott Jr, MD Consults: 01/20/17 10:39 Consult to Urology [CONS] Routine Consulting Provider: Urology Lyly Reason for Consult: Anemia with microscopic hematuria Call Completed: Yes 01/20/17 12:17 Consult to Nutrition [CONS] Routine Comment: patient low albumin, edema to extremeties Consulting Provider: NUTRITION Reason for Dietary Consult: Other Discharging clinician: Rashaad Pride Anticipated date of discharge: 01/20/17 - Patient Status Disposition: Transfer SNF Condition: Fair Functional capacity at discharge: bed bound Overall status at discharge: patient is back to baseline - Discharge Instructions Follow Up With: Philippe Scott Jr, MD [Primary Care Provider] - 01/25/17 10:00 am - Diet and Activity Activity: as per physical therapy Diet: diabetic diet (Plus Ensure HP tid) Interval History: Ms. Hardy is a 76 year old female with hypertension, type 2 diabetes, rheumatoid arthritis, chronic neutropenia, Colectomy with colostomy for diverticulitis, and recent right hip fracture with surgical repair 3 weeks ago, who was sent to the ED today by her SNF for low hgb. She reports she has been feeling weak, tired and short of breath. She denies any nausea, vomiting, headache, chest pain, palpitations. She denies any signs or symptoms of bleeding. Her colostomy output has been normal, brown for her. She has been on lovenox for post-ortho surgery DVT prophylaxis. Evaluation in the ED showed Hgb of 7.4. WBC of 1.9 consistent with her baseline, she gets neupogen shots with heme/onc on a regular basis. Stool hemoccult was negative. On exam, patient is drowsy, but arousable, oriented, in no distress. Lungs are clear to auscultation bilaterally, heart has regular rate and rhythm. Hospital course: Ms. Hardy is a 76 year old female admitted for weakness and low hemoglobin. She was treated her with 2 units of PRBC transfusion. Anemia workup done, shows iron deficiency anemia. The etiology of anemia has been explored, CT chest and abdomen/pelvis has been done, results unremarkable. Guaiac test negative. Patient has microscopic hematuria, urology consult was called and saw patient, no immediate procedure needed at this point. Consider the anemia is due to 2 major surgery in recent 3 months. After transfusion, patient's hemoglobin level is stable. [facility]. Will give patient Iron supplement. Patient was seen and examined. She is awake alert, oriented 3. Still weak. Vital signs stable. Patient is stable to transfer back to [facility]. - Time Spent with Patient Total time spent providing and/or coordinating discharge services: 40 minutes Greater than 30 minutes - Constitutional Vitals: Temp Pulse Resp BP Pulse Ox 97.6 F 83 15 135/54 95 01/20/17 04:35 01/20/17 07:00 01/20/17 07:00 01/20/17 07:00 01/20/17 07:00 General appearance: Present: A&O X 3, no acute distress, answers questions appropriately - Head Head exam: Present: atraumatic, normocephalic - Eye Eye exam: Present: PERRL, conjuntiva pink, sclera anicteric Pupils: Present: PERRL - Neck Neck exam general surgery: Present: supple, trachea midline. Absent: lymphadenopathy - Respiratory Respiratory exam: Present: CTAB. Absent: accessory muscle use, rales, rhonchi, wheezes - Cardiovascular Cardiovascular exam: Present: RRR, +S1, +S2. Absent: diastolic murmur, gallop, rubs, systolic murmur - GI/Abdominal GI/Abdominal exam: Present: normal bowel sounds, soft, no peritoneal signs. Absent: distended, tenderness - Extremities Exam Extremities exam: Present: warm, radial pulses palpable and symetrical. Absent : calf tenderness, cyanotic, pedal edema - Neurological Exam Neurological exam: Present: CN II-XII intact, oriented X3, no focal deficits. Absent: pronater drift, facial droop, speech deficit - Skin Skin exam: Present: dry, intact
--- NOTE | 2017-01-20 15:03 | Physician Discharge Referral ---
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 Status: Acute (6) Type 2 diabetes mellitus Status: Acute - Transfer Medications Prescriptions: OxyCODONE Immed Rel [Roxicodone 5 MG] 5 mg PO Q4HR PRN #20 tablet PRN Reason: Pain Ferrous Sulfate 325 mg PO DAILY@0800 #30 tablet Home Medications: Glimepiride [Amaryl] 4 mg PO QAM 09/22/15 [History] Metformin [Glucophage] 1,000 mg PO BID 09/22/15 [History] Metoprolol [Lopressor] 25 mg PO BID 09/22/15 [History] Omeprazole [PriLOSEC] 20 mg PO DAILY 09/22/15 [History] Amlodipine Besylate 10 mg PO DAILY 03/22/16 [History] Potassium Chloride [K-Tab ER] 20 meq PO QPM 03/22/16 [History] Calcium Citrate 400 mg PO TID 01/17/17 [History] Cholecalciferol (D-3) [Vitamin D] 2,000 unit PO DAILY 01/17/17 [History] Docusate [Colace] 100 mg PO BID 01/17/17 [History] Enoxaparin [Lovenox] 40 mg SQ DAILY 01/17/17 [History] Magnesium 200 mg PO DAILY 01/17/17 [History] Metoclopramide HCl 5 mg PO TID 01/17/17 [History] Sennosides [Senna] 8.6 mg PO BID 01/17/17 [History] Sucralfate [Carafate] 1 gm PO TIDAC 01/17/17 [History] Ferrous Sulfate 325 mg PO DAILY@0800 #30 tablet 01/20/17 [Rx] OxyCODONE Immed Rel [Roxicodone 5 MG] 5 mg PO Q4HR PRN #20 tablet 01/20/17 [Rx] Allergies/Adverse Reactions: Allergies RODGER Inhibitors Adverse Reaction (Verified 01/17/17 13:54) See Comments UNSURE ampicillin Adverse Reaction (Verified 01/17/17 13:54) See Comments lisinopril Adverse Reaction (Verified 01/17/17 13:54) See Comments Tetracycline Adverse Reaction (Verified 01/17/17 13:54) See Comments - Respiratory Orders Oxygen / L per min (2) Smoking Cessation: Smoking cessation has been advised. For more information, call the [place] Tobacco Quit Line at 3-248-CPHQ-NOW. - Advance Directives Code Status: Full Code - Mobility Orders Bedrest - Rehabiliation Orders Rehab Potential: Fair Rehab Orders: Evaluation for Physical Therapy, Evaluation for Occupational Therapy - Diet Orders No Concentrated Sweets (Diabetes diet with Ensure HP tid) CERTIFICATION: I certify that the transfer of the above named patient to an Extended Care Facility is necessary for the continuing treatment of the diagnosis listed. The above information is true and accurate reflection of patient's current condition. Confidential - Redisclosure prohibited without a patient's written consent.
--- NOTE | 2017-01-20 17:26 | Event Note ---
Date of Encounter: 01/20/17 Time of Encounter: 17:00 Pt is planed to discharge to ECF. However, she is very lethargic today, poor uptake. Will hold discharge, keep pt in hospital for continue monitoring. D/W pt's son, since she is very malnutrition and weak, difficult to predict the prognosis, prognosis is guarded. Will wait for tomorrow, if pt is more awake, alert, will proceed to discharge to ECF because there is no acute issue to be managed in hospital. Pt's son verbalized understanding and agree the management plan. Pt's living will was brought to hospital. Further discussed with Pt's son. I was told pt doesn't want CPR or intubation. Will change code status to DNR/DNI.
[2017-01-21] MEDS: *HR* OxyCODONE Immed Rel 5 MG TABLET PO PRN ×3 (04:05→20:20)
[2017-01-21] MEDS: *HR* Enoxaparin 40 MG/0.4 ML SYRINGE SQ SCH (05:49)
[2017-01-21 09:15] LABS: Red Cell Distribution Width 15.2 % (11.5-14.5)
[2017-01-21 09:16] LABS: Hematocrit 30.9 % (35.3-44.9); Lymphocytes # 0.2 K/mcL (0.6-4.6); Mean Corpuscular HGB Conc 32.4 g/dL (31.6-35.5); Mean Corpuscular Hemoglobin 29.3 pg (28.0-33.3); Mean Corpuscular Volume 90.6 fL (83.0-100.0); Mean Platelet Volume 10.5 fL (9.4-12.4); Platelet Count 256 K/mcL (140-400); Red Blood Count 3.41 M/mcL (3.82-4.97)
[2017-01-21 09:25] LABS: BUN/Creatinine Ratio 30 (6-26); Blood Urea Nitrogen 26 mg/dL (7-20); Calcium 9.8 mg/dL (8.6-10.8); Carbon Dioxide 25 mEq/L (19-29); Chloride 98 mEq/L (98-109); Glucose 252 mg/dL (70-99); Osmolality,Calculated 285 (280-300); Potassium 4.3 mEq/L (3.5-4.5); Sodium 131 mEq/L (136-145); eGFR For African Americans > 60 (> 60); eGFR For Non-African Americans > 60 (> 60)
[2017-01-21 09:41] LABS: Eosinophils # 0.1 K/mcL (0.0-0.6); Monocytes # 0.1 K/mcL (0.0-1.3); Neutrophils # 0.8 K/mcL (1.6-8.9); Platelet Estimate Normal (Normal)
[2017-01-21] MEDS: Insulin LISPRO 300 UNITS/3 ML VIAL SQ SCH ×3 (10:53→17:51)
[2017-01-21] MEDS: Cholecalciferol (D-3) 1,000 UNIT TABLET PO SCH (10:59)
[2017-01-21] MEDS: Sucralfate 1 GM TABLET PO SCH ×3 (10:59→17:52)
[2017-01-21] MEDS: amLODIPine 5 MG TABLET PO SCH (10:59)
[2017-01-21] MEDS: Lactobacillus 1 EACH CAP.SPRINK PO SCH ×2 (10:59→22:13)
[2017-01-21] MEDS: Magnesium Oxide 400 MG TABLET PO SCH (10:59)
[2017-01-21] MEDS: FLUoxetine 20 MG CAPSULE PO SCH (10:59)
[2017-01-21] MEDS: Sennosides 8.6 MG TABLET PO SCH ×2 (10:59→22:14)
--- NOTE | 2017-01-21 12:55 | Internal Med Progress Note ---
Date of Encounter: 01/21/17 Time of Encounter: 10:00 - Assessment and plan (1) Anemia Current Visit: Yes Status: Acute Assessment and plan: Etiology is undetermine. Differential diagnosis included recent surgical blood loss for hip surgery one week ago in [facility], or chronic iron deficiency anemia. No signs of active bleeding. Patient has malnutrition and poor uptake. Alb 1.7 on admission. Will give Iron supplements Qualifiers: Anemia type: iron deficiency Iron deficiency anemia type: other iron deficiency Qualified Code(s): D50.8 - Other iron deficiency anemias (2) Hypertension Current Visit: Yes Status: Acute Assessment and plan: Continue home medications. Qualifiers: Hypertension type: essential hypertension Qualified Code(s): I10 - Essential (primary) hypertension (3) Chronic neutropenia Current Visit: Yes Status: Acute Assessment and plan: Stable. Closely monitor (4) DVT prophylaxis Current Visit: Yes Status: Acute Assessment and plan: SCD, lovenox subcutaneously. 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 Consider she has neutropenia. We will empirically treat her with cefepime. - Time Spent With Patient 25 - 35 minutes - Subjective Interval history: The patient is a 76-year-old female admitted for low hemoglobin and weakness. Her past medical history is significant for diabetes, hypertension, diverticulitis S/P colostomy, hip fracture S/P surgery on last Sunday in [facility]. Patient was seen and examined. She is still weak and lethargic. WBC low but she has some bandemia, no infection location identified. Will empirically treat pt with cefepime considering her neutropenia status. H/H stable after transfusion. Discharge was on hold because of patient's generally weak and lethargic. Vital signs stable. Patient has multiple medical problems and recent major surgeries. She has malnutrition with low albumin and low iron level. No signs of active bleeding. Nutrition consult appreciated. Will continue supportive treatment and close monitoring. I further discussed with the patient's (POA) regarding CODE STATUS, he agrees DNR/DNI. Will consult palliative care team for further determine treatment goal. - Constitutional Vitals: Temp Pulse Resp BP Pulse Ox 98.3 F 84 16 134/60 98 01/21/17 08:00 01/21/17 08:00 01/21/17 08:00 01/21/17 08:00 01/21/17 08:00 General appearance: Present: A&O X 3, no acute distress, answers questions appropriately - Head Head exam: Present: atraumatic, normocephalic - Eye Eye exam: Present: PERRL, conjuntiva pink, sclera anicteric Pupils: Present: PERRL - Neck Neck exam general surgery: Present: supple, trachea midline. Absent: lymphadenopathy - Respiratory Respiratory exam: Present: CTAB. Absent: accessory muscle use, rales, rhonchi, wheezes - Cardiovascular Cardiovascular exam: Present: RRR, +S1, +S2. Absent: diastolic murmur, gallop, rubs, systolic murmur - GI/Abdominal GI/Abdominal exam: Present: normal bowel sounds, soft, no peritoneal signs. Absent: distended, tenderness - Extremities Exam Extremities exam: Present: pedal edema (B/L), warm, radial pulses palpable and symetrical. Absent: calf tenderness, cyanotic - Neurological Exam Neurological exam: Present: CN II-XII intact, oriented X3, no focal deficits. Absent: pronater drift, facial droop, speech deficit - Skin Skin exam: Present: dry, intact Internal Medicine: Result - Labs CBC & Chem 7: 01/21/17 09:03 01/21/17 09:03 Labs: Short CBC 01/21/17 Range/Units 09:03 WBC 1.2 L (4.3-11.1) K/mcL Hgb 10.0 L (11.5-15.4) g/dL Hct 30.9 L (35.3-44.9) % Plt Count 256 (140-400) K/mcL Neutrophils # 0.8 L (1.6-8.9) K/mcL BMP 01/21/17 09:03 Sodium 131 L Potassium 4.3 Chloride 98 Carbon Dioxide 25 BUN 26 H Creatinine 0.87 Glucose 252 H Calcium 9.8 - ABG Interpretation ABG results: PT/INR, D-dimer PT 13.1 Seconds (9.4-12.1) H 01/18/17 08:24 - Impressions Impressions Chest X-Ray 01/21/17 08:32 IMPRESSION: No evidence of acute cardiopulmonary disease. D/ / Loki Lee MD / Loki Lee MD Interpreting Provider: Loki Lee MD Consult Discharge Plan - Plan Referrals: Philippe Scott Jr, MD [Primary Care Provider] - 01/25/17 10:00 am Prescriptions: OxyCODONE Immed Rel [Roxicodone 5 MG] 5 mg PO Q4HR PRN #20 tablet PRN Reason: Pain Ferrous Sulfate 325 mg PO DAILY@0800 #30 tablet
[2017-01-21] MEDS ORDERED: Insulin LISPRO 300 UNITS/3 ML VIAL SQ SCH (13:09)
[2017-01-21] MEDS: Doxycycline 100 MG CAPSULE PO SCH ×2 (17:54→23:15)
[2017-01-21] MEDS ORDERED: Cefepime HCl 2,000 MG in D5% in Water (Mini-Bag+) 100 ML IVPB SCH (18:00)
[2017-01-22] MEDS: *HR* OxyCODONE Immed Rel 5 MG TABLET PO PRN ×2 (01:30→06:47)
[2017-01-22 05:38] LABS: Hemoglobin 9.7 g/dL (11.5-15.4)
[2017-01-22 05:40] LABS: Basophils % 0.7 %; Eosinophils # 0.1 K/mcL (0.0-0.6); Eosinophils % 8.7 %; Hematocrit 30.2 % (35.3-44.9); Immature Granulocytes % 0.7 % (0-4); Lymphocytes # 0.2 K/mcL (0.6-4.6); Lymphocytes % 12.8 %; Mean Corpuscular HGB Conc 32.1 g/dL (31.6-35.5); Mean Corpuscular Hemoglobin 28.8 pg (28.0-33.3); Mean Corpuscular Volume 89.6 fL (83.0-100.0); Mean Platelet Volume 10.3 fL (9.4-12.4); Monocytes # 0.3 K/mcL (0.0-1.3); Monocytes % 21.5 %; Neutrophils # 0.8 K/mcL (1.6-8.9); Platelet Count 280 K/mcL (140-400); Red Blood Count 3.37 M/mcL (3.82-4.97); Segmented Neutrophils % 55.6 %
[2017-01-22 05:54] LABS: BUN/Creatinine Ratio 33 (6-26); Blood Urea Nitrogen 26 mg/dL (7-20); Calcium 9.9 mg/dL (8.6-10.8); Carbon Dioxide 25 mEq/L (19-29); Chloride 99 mEq/L (98-109); Glucose 229 mg/dL (70-99); Osmolality,Calculated 286 (280-300); Potassium 4.1 mEq/L (3.5-4.5); Sodium 132 mEq/L (136-145); eGFR For African Americans > 60 (> 60); eGFR For Non-African Americans > 60 (> 60)
[2017-01-22 06:12] LABS: Platelet Estimate Normal (Normal)
[2017-01-22] MEDS: *HR* Enoxaparin 40 MG/0.4 ML SYRINGE SQ SCH (06:47)
[2017-01-22 08:03] VITALS: BP 158/72
[2017-01-22] MEDS: Insulin LISPRO 300 UNITS/3 ML VIAL SQ SCH (09:22)
[2017-01-22] MEDS: Magnesium Oxide 400 MG TABLET PO SCH (09:23)
[2017-01-22] MEDS: Cholecalciferol (D-3) 1,000 UNIT TABLET PO SCH (09:23)
[2017-01-22] MEDS: Sucralfate 1 GM TABLET PO SCH (09:23)
[2017-01-22] MEDS: Lactobacillus 1 EACH CAP.SPRINK PO SCH (09:23)
[2017-01-22] MEDS: amLODIPine 5 MG TABLET PO SCH (09:23)
[2017-01-22] MEDS: Sennosides 8.6 MG TABLET PO SCH (09:23)
[2017-01-22] MEDS: FLUoxetine 20 MG CAPSULE PO SCH (09:24)
--- NOTE | 2017-01-22 10:54 | Palliative - Consult Note ---
<MakenzieCresencio link - Last Filed: 01/22/17 10:47> Date of Encounter: 01/22/17 Time of Encounter: 09:30 - Assessment and Plan (1) Goals of care, counseling/discussion Current Visit: Yes Status: Acute Assessment and plan: Had a long discussion with the patient's and power of securities attorney, Jarrett. Discussed goals of care and CODE STATUS. The primary team had discussed CODE STATUS with patient and yesterday and made the patient DNR CCA/DNI. I again discussed CODE STATUS with the patient and the and they reiterated that the patient wants to remain DNR CCA/DNI. and patient wished to continue with rehabilitation at [facility] to continue to recover from the patient's recent fall and surgery. (2) Anemia Current Visit: Yes Status: Acute Assessment and plan: Patient was noted to have a hemoglobin of 6.7 at the [facility], upon arrival her hemoglobin was 6.9. Patient received 2 units of packed red blood cells and her hemoglobin responded appropriately. Hemoglobin has been stable since then. There is no evidence of active blood loss. Likely related to postsurgical losses. Further workup per primary team. Patient may need an outpatient hematology/oncology workup given her anemia as well as chronic neutropenia. Qualifiers: Anemia type: iron deficiency Iron deficiency anemia type: other iron deficiency Qualified Code(s): D50.8 - Other iron deficiency anemias (3) Chronic neutropenia Current Visit: Yes Status: Acute Assessment and plan: This is been present for at least 2 years given our laboratory values. This may be related to recurrent UTIs. Patient receives Neupogen as an outpatient. Further management per primary team (4) Type 2 diabetes mellitus Current Visit: No Status: Acute Assessment and plan: Slightly hyperglycemic. Management per primary. Qualifiers: Diabetes mellitus complication status: without complication Diabetes mellitus mcfp insulin use: without intermodal dispatcher use Qualified Code(s): E11.9 - Type 2 diabetes mellitus without complications Palliative-CN HPI - Data of Consult Patient: new to practice Consult date: 01/22/17 Requesting Physician: Rashaad Pride MD Primary Care Provider: Philippe Scott Jr, MD - Consult Narrative Reason for consult: Goals of Care History of present illness: Ms. Hardy is a 76 year old female with history of chronic neutropenia, diverticulitis with diverting colostomy, diabetes type 2, recent fall with femur fracture status post internal fixation who initially presented with abnormal labs. Patient was at [facility] to participate in rehabilitation following her orthopedic surgery when she had a CBC done which revealed a hemoglobin of 6.4. Patient was transferred to [place]. Patient received 2 units PRBCs and hemoglobin recovered well. Patient remained somewhat weak and lethargic throughout her stay, patient states that this is how she was prior to arrival. Patient recently had a fall on their way home from [place] and had surgery with plating on 01/12/2017. Patient was transferred to [facility] from [facility] 2 days prior to arrival from the emergency department. Patient's states that throughout the winter he is then to the emergency department 7 times for urinary tract infections. states that she has a chronically low white blood cell count. CC: Rashaad Pride MD Past Med Surg Social Fam HX - Past Medical History Medical history: diabetes, hypertension, RA, other (chronic neutropenia) Psychiatric history: no psych history - Past Surgical History Surgical History: colectomy, colostomy, hip replacement, other - Social History Smoking Status: Unknown if ever smoked Smokeless Tobacco Status: No Alcohol use: none Drug use: none - Family History Mother Hx Family Genitourinary Disorders: No (No stones.) Medications and Allergies Glimepiride [Amaryl] 4 mg PO QAM 09/22/15 [History] Metformin [Glucophage] 1,000 mg PO BID 09/22/15 [History] Metoprolol [Lopressor] 25 mg PO BID 09/22/15 [History] Omeprazole [PriLOSEC] 20 mg PO DAILY 09/22/15 [History] Amlodipine Besylate 10 mg PO DAILY 03/22/16 [History] Potassium Chloride [K-Tab ER] 20 meq PO QPM 03/22/16 [History] Calcium Citrate 400 mg PO TID 01/17/17 [History] Cholecalciferol (D-3) [Vitamin D] 2,000 unit PO DAILY 01/17/17 [History] Docusate [Colace] 100 mg PO BID 01/17/17 [History] Enoxaparin [Lovenox] 40 mg SQ DAILY 01/17/17 [History] Magnesium 200 mg PO DAILY 01/17/17 [History] Metoclopramide HCl 5 mg PO TID 01/17/17 [History] Sennosides [Senna] 8.6 mg PO BID 01/17/17 [History] Sucralfate [Carafate] 1 gm PO TIDAC 01/17/17 [History] Ferrous Sulfate 325 mg PO DAILY@0800 #30 tablet 01/20/17 [Rx] OxyCODONE Immed Rel [Roxicodone 5 MG] 5 mg PO Q4HR PRN #20 tablet 01/20/17 [Rx] Allergies RODGER Inhibitors Adverse Reaction (Verified 01/17/17 13:54) See Comments UNSURE ampicillin Adverse Reaction (Verified 01/17/17 13:54) See Comments lisinopril Adverse Reaction (Verified 01/17/17 13:54) See Comments Tetracycline Adverse Reaction (Verified 01/17/17 13:54) See Comments ROS unobtainable: due to mental status (Patient is somewhat lethargic and is unable to participate in a complete review of symptoms.) Palliative Care-Exam - Constitutional Vitals: Temp Pulse Resp BP Pulse Ox 97.6 F 99 18 158/72 94 L 01/22/17 07:59 01/22/17 07:59 01/22/17 07:59 01/22/17 07:59 01/22/17 07:59 General appearance: Present: no acute distress - Head Head Exam: Present: atraumatic, normocephalic - Eye Eye exam: Present: EOMI, PERRL - ENT ENT exam: Present: mucous membranes moist - Respiratory Respiratory exam: Present: CTAB. Absent: rales, rhonchi, wheezes - Cardiovascular Cardiovascular exam: Present: RRR, systolic murmur - GI/Abdominal Exam GI/Abdominal exam: Present: normal bowel sounds, soft. Absent: tenderness - Extremities Exam Extremities exam: Absent: pedal edema Additional comments: Dressing applied to right lateral leg is clean dry and intact. No erythema or ecchymosis noted. - Neurological Exam Neurological exam: Present: alert (But somewhat lethargic) Internal Medicine - CN: Reslt - Labs CBC & Chem 7: 01/22/17 05:26 01/22/17 05:26 Labs: Short CBC 01/22/17 Range/Units 05:26 WBC 1.5 L (4.3-11.1) K/mcL Hgb 9.7 L (11.5-15.4) g/dL Hct 30.2 L (35.3-44.9) % Plt Count 280 (140-400) K/mcL Neutrophils # 0.8 L (1.6-8.9) K/mcL BMP 01/22/17 05:26 Sodium 132 L Potassium 4.1 Chloride 99 Carbon Dioxide 25 BUN 26 H Creatinine 0.78 Glucose 229 H Calcium 9.9 - ABG Interpretation ABG results: PT/INR, D-dimer PT 13.1 Seconds (9.4-12.1) H 01/18/17 08:24 - Impressions Impressions Abdomen/Pelvis CT 01/19/17 15:00 IMPRESSION: 1. There is an acute comminuted right proximal femur fracture status post ORIF with posttraumatic/surgical soft tissue changes of the hip. Probable acute on chronic mild T7 compression fracture with no significant posterior cortical displacement. 2. There is no dominant body wall or intrathoracic/abdominal/pelvic hematoma. 3. Cardiomegaly with atherosclerosis. There is mild thoracic atelectasis with no acute congestive heart failure, pneumonia, or findings concerning for thoracic malignancy. 4. Stable enhancing pancreatic tail mass. 5. New ill-defined left hepatic lobe multifocal mass lesions, metastatic disease cannot be excluded. No biliary obstruction. 6. Nonobstructing right renal pelvis 8 mm calculus with evidence of chronic renal pelvis inflammation. 7. Status post partial colonic resection with left lower quadrant ileostomy. Stable chronic midline incisional and right lateral abdominal loss of domain with prior hernia repairs. 8. Extensive bowel adhesions with no acute abnormality. D/ / 01/19/2017 16:42:12 Humberto Flor MD / stacey Interpreting Provider: Humberto Flor MD Chest CT 01/19/17 15:00 IMPRESSION: 1. There is an acute comminuted right proximal femur fracture status post ORIF with posttraumatic/surgical soft tissue changes of the hip. Probable acute on chronic mild T7 compression fracture with no significant posterior cortical displacement. 2. There is no dominant body wall or intrathoracic/abdominal/pelvic hematoma. 3. Cardiomegaly with atherosclerosis. There is mild thoracic atelectasis with no acute congestive heart failure, pneumonia, or findings concerning for thoracic malignancy. 4. Stable enhancing pancreatic tail mass. 5. New ill-defined left hepatic lobe multifocal mass lesions, metastatic disease cannot be excluded. No biliary obstruction. 6. Nonobstructing right renal pelvis 8 mm calculus with evidence of chronic renal pelvis inflammation. 7. Status post partial colonic resection with left lower quadrant ileostomy. Stable chronic midline incisional and right lateral abdominal loss of domain with prior hernia repairs. 8. Extensive bowel adhesions with no acute abnormality. D/ / 01/19/2017 16:42:12 Humberto Flor MD / stacey Interpreting Provider: Humberto Flor MD Consult Discharge Plan - Plan Referrals: Philippe Scott Jr, MD [Primary Care Provider] - 01/25/17 10:00 am Prescriptions: OxyCODONE Immed Rel [Roxicodone 5 MG] 5 mg PO Q4HR PRN #20 tablet PRN Reason: Pain Ferrous Sulfate 325 mg PO DAILY@0800 #30 tablet Palliative Quality Palliative Quality: Screen for Code Status: Yes, Screen for Goals of Care: Yes, Screen for Pain: Yes Code Status: 01/20/17 17:27 CODE [Resuscitation Status: Active] [RES] Routine Comment: Resuscitation Status: [id number] <Patrice Cole - Last Filed: 01/22/17 11:51> Palliative-CN HPI - Data of Consult Requesting Physician: Rashaad Pride MD Primary Care Provider: Philippe Scott Jr, MD - Consult Narrative History of present illness: Ms. Hardy is a 76 year old female CC: Rashaad Pride MD Palliative Care-Exam - Constitutional Vitals: Temp Pulse Resp BP Pulse Ox 97.6 F 99 18 158/72 94 L 01/22/17 07:59 01/22/17 07:59 01/22/17 07:59 01/22/17 07:59 01/22/17 07:59 Internal Medicine - CN: Reslt - Labs CBC & Chem 7: 01/22/17 05:26 01/22/17 05:26 Labs: Short CBC 01/22/17 Range/Units 05:26 WBC 1.5 L (4.3-11.1) K/mcL Hgb 9.7 L (11.5-15.4) g/dL Hct 30.2 L (35.3-44.9) % Plt Count 280 (140-400) K/mcL Neutrophils # 0.8 L (1.6-8.9) K/mcL BMP 01/22/17 05:26 Sodium 132 L Potassium 4.1 Chloride 99 Carbon Dioxide 25 BUN 26 H Creatinine 0.78 Glucose 229 H Calcium 9.9 - ABG Interpretation ABG results: PT/INR, D-dimer PT 13.1 Seconds (9.4-12.1) H 01/18/17 08:24 - Impressions Impressions Abdomen/Pelvis CT 01/19/17 15:00 IMPRESSION: 1. There is an acute comminuted right proximal femur fracture status post ORIF with posttraumatic/surgical soft tissue changes of the hip. Probable acute on chronic mild T7 compression fracture with no significant posterior cortical displacement. 2. There is no dominant body wall or intrathoracic/abdominal/pelvic hematoma. 3. Cardiomegaly with atherosclerosis. There is mild thoracic atelectasis with no acute congestive heart failure, pneumonia, or findings concerning for thoracic malignancy. 4. Stable enhancing pancreatic tail mass. 5. New ill-defined left hepatic lobe multifocal mass lesions, metastatic disease cannot be excluded. No biliary obstruction. 6. Nonobstructing right renal pelvis 8 mm calculus with evidence of chronic renal pelvis inflammation. 7. Status post partial colonic resection with left lower quadrant ileostomy. Stable chronic midline incisional and right lateral abdominal loss of domain with prior hernia repairs. 8. Extensive bowel adhesions with no acute abnormality. D/ / 01/19/2017 16:42:12 Humberto Flor MD / lgray Interpreting Provider: Humberto Flor MD Chest CT 01/19/17 15:00 IMPRESSION: 1. There is an acute comminuted right proximal femur fracture status post ORIF with posttraumatic/surgical soft tissue changes of the hip. Probable acute on chronic mild T7 compression fracture with no significant posterior cortical displacement. 2. There is no dominant body wall or intrathoracic/abdominal/pelvic hematoma. 3. Cardiomegaly with atherosclerosis. There is mild thoracic atelectasis with no acute congestive heart failure, pneumonia, or findings concerning for thoracic malignancy. 4. Stable enhancing pancreatic tail mass. 5. New ill-defined left hepatic lobe multifocal mass lesions, metastatic disease cannot be excluded. No biliary obstruction. 6. Nonobstructing right renal pelvis 8 mm calculus with evidence of chronic renal pelvis inflammation. 7. Status post partial colonic resection with left lower quadrant ileostomy. Stable chronic midline incisional and right lateral abdominal loss of domain with prior hernia repairs. 8. Extensive bowel adhesions with no acute abnormality. D/ / 01/19/2017 16:42:12 Humberto Flor MD / stacey Interpreting Provider: Humberto Flor MD - Attending Attestation I examined this patient and my medical decision-making was reviewed with the LABEL STAMPER/PA/Advanced Practice Nurse/Resident Physician. I agree with the documented findings, disposition and treatment plan as described except to the extent set forth below. Palliative Quality Code Status: 01/20/17 17:27 CODE [Resuscitation Status: Active] [RES] Routine Comment: Resuscitation Status: [id number]
--- NOTE | 2017-01-22 17:19 | Internal Med Progress Note ---
Date of Encounter: 01/22/17 Time of Encounter: 10:00 - Assessment and plan (1) Anemia Status: Acute Assessment and plan: Etiology is undetermine. Differential diagnosis included recent surgical blood loss for hip surgery one week ago in [facility], or chronic iron deficiency anemia. No signs of active bleeding. Patient has malnutrition and poor uptake. Alb 1.7 on admission. Will give Iron supplements Qualifiers: Anemia type: iron deficiency Iron deficiency anemia type: other iron deficiency Qualified Code(s): D50.8 - Other iron deficiency anemias (2) Hypertension Status: Acute Assessment and plan: Continue home medications. Qualifiers: Hypertension type: essential hypertension Qualified Code(s): I10 - Essential (primary) hypertension (3) Chronic neutropenia Status: Acute Assessment and plan: Stable. Closely monitor (4) DVT prophylaxis Status: Acute Assessment and plan: SCD, lovenox subcutaneously. 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 Previous bandemia possibly due to leukocytopenia. No signs of infection. We will d/c abx.. - Time Spent With Patient 25 - 35 minutes - Subjective Interval history: The patient is a 76-year-old female admitted for low hemoglobin and weakness. Her past medical history is significant for diabetes, hypertension, diverticulitis S/P colostomy, hip fracture S/P surgery on last Sunday in [facility]. Patient was seen and examined. She is still weak but more alert awake. Edema improved. WBC still low, no bandemia, no infection location identified. Will d/ c antibiotic because pt is more alert awke and plan to d/c to NH. H/H stable after transfusion. Will D/C pt to NH today for continue rehab for s/p hip fracture surgery. - Constitutional Vitals: Temp Pulse Resp BP Pulse Ox 97.6 F 99 18 158/72 94 L 01/22/17 07:59 01/22/17 07:59 01/22/17 07:59 01/22/17 07:59 01/22/17 07:59 General appearance: Present: A&O X 3, no acute distress, answers questions appropriately - Head Head exam: Present: atraumatic, normocephalic - Eye Eye exam: Present: PERRL, conjuntiva pink, sclera anicteric Pupils: Present: PERRL - Neck Neck exam general surgery: Present: supple, trachea midline. Absent: lymphadenopathy - Respiratory Respiratory exam: Present: CTAB. Absent: accessory muscle use, rales, rhonchi, wheezes - Cardiovascular Cardiovascular exam: Present: RRR, +S1, +S2. Absent: diastolic murmur, gallop, rubs, systolic murmur - GI/Abdominal GI/Abdominal exam: Present: normal bowel sounds, soft, no peritoneal signs. Absent: distended, tenderness - Extremities Exam Extremities exam: Present: warm, radial pulses palpable and symetrical. Absent : calf tenderness, cyanotic, pedal edema - Neurological Exam Neurological exam: Present: CN II-XII intact, oriented X3, no focal deficits. Absent: pronater drift, facial droop, speech deficit - Skin Skin exam: Present: dry, intact Internal Medicine: Result - Labs CBC & Chem 7: 01/22/17 05:26 01/22/17 05:26 Labs: Short CBC 01/22/17 Range/Units 05:26 WBC 1.5 L (4.3-11.1) K/mcL Hgb 9.7 L (11.5-15.4) g/dL Hct 30.2 L (35.3-44.9) % Plt Count 280 (140-400) K/mcL Neutrophils # 0.8 L (1.6-8.9) K/mcL BMP 01/22/17 05:26 Sodium 132 L Potassium 4.1 Chloride 99 Carbon Dioxide 25 BUN 26 H Creatinine 0.78 Glucose 229 H Calcium 9.9 - ABG Interpretation ABG results: PT/INR, D-dimer PT 13.1 Seconds (9.4-12.1) H 01/18/17 08:24 - Impressions Impressions Abdomen/Pelvis CT 01/19/17 15:00 IMPRESSION: 1. There is an acute comminuted right proximal femur fracture status post ORIF with posttraumatic/surgical soft tissue changes of the hip. Probable acute on chronic mild T7 compression fracture with no significant posterior cortical displacement. 2. There is no dominant body wall or intrathoracic/abdominal/pelvic hematoma. 3. Cardiomegaly with atherosclerosis. There is mild thoracic atelectasis with no acute congestive heart failure, pneumonia, or findings concerning for thoracic malignancy. 4. Stable enhancing pancreatic tail mass. 5. New ill-defined left hepatic lobe multifocal mass lesions, metastatic disease cannot be excluded. No biliary obstruction. 6. Nonobstructing right renal pelvis 8 mm calculus with evidence of chronic renal pelvis inflammation. 7. Status post partial colonic resection with left lower quadrant ileostomy. Stable chronic midline incisional and right lateral abdominal loss of domain with prior hernia repairs. 8. Extensive bowel adhesions with no acute abnormality. D/ / 01/19/2017 16:42:12 Humberto Flor MD / stacey Interpreting Provider: Humberto Flor MD Chest CT 01/19/17 15:00 IMPRESSION: 1. There is an acute comminuted right proximal femur fracture status post ORIF with posttraumatic/surgical soft tissue changes of the hip. Probable acute on chronic mild T7 compression fracture with no significant posterior cortical displacement. 2. There is no dominant body wall or intrathoracic/abdominal/pelvic hematoma. 3. Cardiomegaly with atherosclerosis. There is mild thoracic atelectasis with no acute congestive heart failure, pneumonia, or findings concerning for thoracic malignancy. 4. Stable enhancing pancreatic tail mass. 5. New ill-defined left hepatic lobe multifocal mass lesions, metastatic disease cannot be excluded. No biliary obstruction. 6. Nonobstructing right renal pelvis 8 mm calculus with evidence of chronic renal pelvis inflammation. 7. Status post partial colonic resection with left lower quadrant ileostomy. Stable chronic midline incisional and right lateral abdominal loss of domain with prior hernia repairs. 8. Extensive bowel adhesions with no acute abnormality. D/ / 01/19/2017 16:42:12 Humberto Flor MD / stacey Interpreting Provider: Humberto Flor MD Consult Discharge Plan - Plan Referrals: Philippe Scott Jr, MD [Primary Care Provider] - 01/25/17 10:00 am Prescriptions: OxyCODONE Immed Rel [Roxicodone 5 MG] 5 mg PO Q4HR PRN #20 tablet PRN Reason: Pain Ferrous Sulfate 325 mg PO DAILY@0800 #30 tablet
== END 2017-01-22 15:04 | DRG 812 ==
LOC: 2NENU 12:29 → EMEROO 12:29 → 2NENU 16:20
PROVIDERS: ADMIT Internal Medicine; ATTEND Internal Medicine

== ENCOUNTER 2017-02-12 16:16 | Inpatient (IN) ==
[2017-02-12] MEDS ORDERED: 0.9 % Sodium Chloride 1,000 ML IVC ONE (16:25)
--- NOTE | 2017-02-12 17:01 | Emergency Department Note ---
Disposition Clinical Impression: Generalized weakness Altered mental status Qualifiers: Altered mental status type: unspecified Qualified Code(s): R41.82 - Altered mental status, unspecified UTI (urinary tract infection) Qualifiers: Urinary tract infection type: site unspecified Hematuria presence: without hematuria Qualified Code(s): N39.0 - Urinary tract infection, site not specified Disposition: Admitted As Inpatient Condition: Fair Referrals: NO,PCP [Primary Care Provider] - Forms: ED Satisfaction Letter Time of Disposition: 20:01 Altered Mental Status HPI - General Chief Complaint: ED Altered Mental Status Stated Complaint: AMS/ Arm Pain Time Seen by Provider: 02/12/17 16:24 Source: patient, EMS Mode of arrival: EMS Limitations: altered mental status Nursing Notes Reviewed: Yes Vital Signs Reviewed: Yes - History of Present Illness HPI Narrative: Patient is a 76-year-old female with past medical history of iron deficiency anemia, type 2 diabetes, neutropenia, hypertension, GERD. She presents today due to altered mental status. She was at the cancer center this morning and was supposed to get her second iron injection, while there, they noticed that she was more confused than previously, not really acting herself, complaining of right arm pain from previous infusion site of IV in right arm. On presentation, patient was alert and oriented only to person. She was unable to answer most review of system questions. She was also complaining of right upper extremity pain. Unable to move bilateral lower extremity to command. - Related Data Home Medications Medication Instructions Recorded Confirmed Glimepiride [Amaryl] 4 mg PO QAM 09/22/15 02/12/17 Metformin [Glucophage] 1,000 mg PO BID 09/22/15 02/12/17 Metoprolol [Lopressor] 25 mg PO BID 09/22/15 02/12/17 Omeprazole [PriLOSEC] 20 mg PO QAM 09/22/15 02/12/17 Amlodipine Besylate 10 mg PO DAILY 03/22/16 02/12/17 Potassium Chloride [K-Tab ER] 20 meq PO QPM 03/22/16 02/12/17 Calcium Citrate 400 mg PO TID 01/17/17 02/12/17 Cholecalciferol (D-3) [Vitamin D] 2,000 unit PO DAILY 01/17/17 02/12/17 Docusate [Colace] 100 mg PO BID 01/17/17 02/12/17 Magnesium 200 mg PO QAM 01/17/17 02/12/17 Metoclopramide HCl 5 mg PO TID 01/17/17 02/12/17 Sennosides [Senna] 8.6 mg PO BID 01/17/17 02/12/17 Sucralfate [Carafate] 1 gm PO TIDAC 01/17/17 02/12/17 Ascorbate Calcium/Bioflavonoid 1 each PO DAILY 02/12/17 02/12/17 [Gabriela-C 500 mg Tablet] Multivitamin [Multi-Day Vitamins] 1 each PO DAILY 02/12/17 02/12/17 Nut.tx.gluc.intoler,Lac-Fr,Soy 237 ml PO BID 02/12/17 02/12/17 [Glucerna 1.5 Vicente] Previous Rx's Medication Instructions Recorded Ferrous Sulfate 325 mg PO DAILY@0800 #30 tablet 01/20/17 OxyCODONE Immed Rel [Roxicodone 5 5 mg PO Q4HR PRN #20 tablet 01/20/17 MG] Allergies Allergy/AdvReac Type Severity Reaction Status Date / Time RODGER Inhibitors AdvReac See Verified 01/17/17 13:54 Comments ampicillin AdvReac See Verified 01/17/17 13:54 Comments lisinopril AdvReac See Verified 01/17/17 13:54 Comments Tetracycline AdvReac See Verified 01/17/17 13:54 Comments Limitations: ROS unobtainable due to patients medical condition Past Medical History - Past Medical History Attestation: Yes The following information was validated with the patient. Medical history: Reports: diabetes, hypertension, RA, other Surgical history: Reports: colectomy, colostomy, hip replacement, other Psychiatric history: Reports: no psych history ADULT NEUROLOGIST history: Reports: no ADULT NEUROLOGIST history - Social History Smoking Status: Unknown if ever smoked Smokeless Tobacco Status: No Alcohol use: Reports: none Drug use: Reports: none Physical Exam - General Limitations: altered mental status General appearance: in no apparent distress - Head Head exam: atraumatic, normocephalic, normal inspection - Eye Eye exam: Present: normal appearance, PERRL, EOMI - ENT ENT exam: mucous membranes dry - Neck Neck exam: Present: normal inspection, full ROM, trachea midline - Chest Chest inspection: Present: normal inspection, symmetric chest wall rise - Respiratory Respiratory exam: Present: normal lung sounds bilaterally. Absent: respiratory distress, wheezes - Cardiovascular Cardiovascular exam: Present: regular rate, normal rhythm, normal heart sounds - Abdominal Exam Abdominal exam: Present: soft, Non-Tender. Absent: tenderness, distention, guarding, rebound, rigidity - Extremities Exam Extremities exam: Present: other (Patient had IV placed in the right wrist. No significant edema or erythema of the right upper extremity, however, she had significant tenderness to touch of the hand, forearm, right upper arm.) - Neurological Exam Neurological exam: Present: alert, CN II-XII intact, motor sensory deficit ( Bilateral lower extremity weakness, unable to lift off the bed.), other ( Oriented to person only.) - Psychiatric Psychiatric exam: Present: flat affect, other (confused) - Skin Skin exam: Present: warm, dry, intact, normal color Course Course Narrative: Patient was 93% on room air. Otherwise, the rest of her vitals were within normal limits. Patient was confused, only alert and oriented to person. Cranial nerves II through XII were intact. However, she was unable to lift bilateral lower extremity off the bed. She was unable to answer most review of system questions. She was sent over from the cancer center due to new-onset confusion. She also has right upper extremity tenderness. Patient had IV placed in the right wrist. No significant edema or erythema of the right upper extremity, however, she had significant tenderness to touch of the hand, forearm , right upper arm. We will obtain altered mental status workup and the right upper extremity ultrasound to assess for DVT, although, this is likely thrombophlebitis. 19:59 RUE US negative. Labs show anemia 10.6, BMP shows renal function WNL. UA equivocal, will give rocephin and culture. Will admit for generalized weakness, AMS, UTI. CXR negative, head CT negative. Chest X-Ray 02/12/17 16:24 IMPRESSION: No acute process. D/ / Corey Barclay MD / Corey Barclay MD Interpreting Provider: Corey Barclay MD Head CT 02/12/17 16:26 IMPRESSION: No acute intracranial abnormality. D/ / Loki Bolton MD / Loki Bolton MD Interpreting Provider: Loki Bolton MD Vital Signs Temperature 99 F 02/12/17 16:18 Pulse Rate 95 02/12/17 16:18 Respiratory Rate 16 02/12/17 16:18 Blood Pressure 138/61 02/12/17 16:18 O2 Sat by Pulse Oximetry 93 02/12/17 16:18 Temperature 99 F 02/12/17 16:18 Pulse Rate 93 02/12/17 20:02 Respiratory Rate 18 02/12/17 20:02 Blood Pressure 159/94 02/12/17 20:02 O2 Sat by Pulse Oximetry 94 02/12/17 20:02 Oxygen Delivery Oxygen Delivery Room Air Altered Mental Status - MDM Narrative Medical decision making narrative: Patient was 93% on room air. Otherwise, the rest of her vitals were within normal limits. Patient was confused, only alert and oriented to person. Cranial nerves II through XII were intact. However, she was unable to lift bilateral lower extremity off the bed. She was unable to answer most review of system questions. She was sent over from the cancer center due to new-onset confusion. She also has right upper extremity tenderness. Patient had IV placed in the right wrist. No significant edema or erythema of the right upper extremity, however, she had significant tenderness to touch of the hand, forearm , right upper arm. We will obtain altered mental status workup and the right upper extremity ultrasound to assess for DVT, although, this is likely thrombophlebitis. 19:59 RUE US negative. Labs show anemia 10.6, BMP shows renal function WNL. UA equivocal, will give rocephin and culture. Will admit for generalized weakness, AMS, UTI. CXR negative, head CT negative. - Medical Records Medical records reviewed: Yes I reviewed the patient's medical records. - Lab Data Lab results reviewed: Yes I reviewed the patient's lab results. Result diagrams: 02/12/17 16:48 02/12/17 16:48 Lab Results 02/12/17 02/12/17 02/12/17 Range/Units 16:48 16:48 16:48 WBC 3.1 L (4.3-11.1) K/mcL RBC 3.74 L (3.82-4.97) M/mcL Hgb 10.6 L (11.5-15.4) g/dL Hct 33.6 L (35.3-44.9) % MCV 89.8 (83.0-100.0) fL MCH 28.3 (28.0-33.3) pg MCHC 31.5 L (31.6-35.5) g/dL RDW 16.6 H (11.5-14.5) % Plt Count 254 (140-400) K/mcL MPV 10.2 (9.4-12.4) fL Immature Gran % 0.7 (0-4) % Seg Neutrophils % 75.1 % Lymphocytes % 11.8 % Monocytes % 10.1 % Eosinophils % 1.3 % Basophils % 1.0 % Neutrophils # 2.3 (1.6-8.9) K/mcL Lymphocytes # 0.4 L (0.6-4.6) K/mcL Monocytes # 0.3 (0.0-1.3) K/mcL Eosinophils # 0.0 (0.0-0.6) K/mcL Basophils # 0.0 (0.0-0.2) K/mcL PT 11.4 (9.4-12.1) Seconds INR 1.1 APTT TNP Sodium 134 L (136-145) mEq/L Potassium 4.5 (3.5-4.5) mEq/L Chloride 103 (98-109) mEq/L Carbon Dioxide 19 (19-29) mEq/L BUN 8 (7-20) mg/dL Creatinine 0.69 (0.57-1.11) mg/dL Est GFR ( Amer) > 60 (> 60) Est GFR (Non-Af Amer) > 60 (> 60) BUN/Creatinine Ratio 12 (6-26) Glucose 139 H (70-99) mg/dL POC Glucose (58-89) Calculated Osmolality 279 L (280-300) Calcium 10.4 (8.6-10.8) mg/dL Total Bilirubin 0.5 (0.2-1.2) mg/dL Direct Bilirubin 0.2 (0.0-0.5) mg/dL Indirect Bilirubin 0.3 (0.0-1.2) mg/dL AST 17 (5-34) Units/L ALT 13 (0-55) Units/L Alkaline Phosphatase 118 (38-126) Units/L Troponin I (0-0.03) ng/mL Serum Total Protein 6.2 (6.0-8.3) g/dL Albumin 2.5 L (3.5-5.0) g/dL Globulin 3.7 H (2.4-3.5) g/dL Albumin/Globulin Ratio 0.7 L (1.1-2.2) Urine Color (Yellow) Urine Clarity (Clear) Urine pH (5.0-8.0) pH Units Ur Specific [place] (1.010-1.025) Urine Protein (Neg-Trace) mg/dL Urine Glucose (UA) (Normal) mg/dL Urine Ketones (Negative) mg/dL Urine Blood (Negative) Urine Nitrite (Negative) Urine Bilirubin (Negative) Urine Urobilinogen (Normal) mg/dL Ur Leukocyte Esterase (Negative) Urine Microscopic RBC (0-3) per hpf Urine Microscopic WBC (0-3) per hpf Ur Squamous Epith Cells (None-Few) per lpf Amorphous Sediment (Few) Urine Bacteria (None-Few) per hpf Hyaline Casts (None-Few) per lpf Ur Culture Indicated? (NO) Urine Opiates Screen (Dtvovj=829) ng/mL Ur Barbiturates Screen (Mhqmkp=201) ng/mL Ur Phencyclidine Scrn (Cutoff=25) ng/mL Ur Amphetamines Screen (Swhebr=5012) ng/mL U Benzodiazepines Scrn (Vqttgh=890) ng/mL Urine Cocaine Screen (Cutoff= 300) ng/mL U Marijuana (THC) Screen (Cutoff = 50) ng/mL Ethyl Alcohol < 10 (0-10) mg/dL 02/12/17 02/12/17 02/12/17 Range/Units 16:48 16:55 16:55 WBC (4.3-11.1) K/mcL RBC (3.82-4.97) M/mcL Hgb (11.5-15.4) g/dL Hct (35.3-44.9) % MCV (83.0-100.0) fL MCH (28.0-33.3) pg MCHC (31.6-35.5) g/dL RDW (11.5-14.5) % Plt Count (140-400) K/mcL MPV (9.4-12.4) fL Immature Gran % (0-4) % Seg Neutrophils % % Lymphocytes % % Monocytes % % Eosinophils % % Basophils % % Neutrophils # (1.6-8.9) K/mcL Lymphocytes # (0.6-4.6) K/mcL Monocytes # (0.0-1.3) K/mcL Eosinophils # (0.0-0.6) K/mcL Basophils # (0.0-0.2) K/mcL PT (9.4-12.1) Seconds INR APTT Sodium (136-145) mEq/L Potassium (3.5-4.5) mEq/L Chloride (98-109) mEq/L Carbon Dioxide (19-29) mEq/L BUN (7-20) mg/dL Creatinine (0.57-1.11) mg/dL Est GFR ( Amer) (> 60) Est GFR (Non-Af Amer) (> 60) BUN/Creatinine Ratio (6-26) Glucose (70-99) mg/dL POC Glucose (58-89) Calculated Osmolality (280-300) Calcium (8.6-10.8) mg/dL Total Bilirubin (0.2-1.2) mg/dL Direct Bilirubin (0.0-0.5) mg/dL Indirect Bilirubin (0.0-1.2) mg/dL AST (5-34) Units/L ALT (0-55) Units/L Alkaline Phosphatase (38-126) Units/L Troponin I 0.01 (0-0.03) ng/mL Serum Total Protein (6.0-8.3) g/dL Albumin (3.5-5.0) g/dL Globulin (2.4-3.5) g/dL Albumin/Globulin Ratio (1.1-2.2) Urine Color Yellow (Yellow) Urine Clarity Turbid A (Clear) Urine pH 5.5 (5.0-8.0) pH Units Ur Specific [place] 1.023 (1.010-1.025) Urine Protein 100 H (Neg-Trace) mg/dL Urine Glucose (UA) Normal (Normal) mg/dL Urine Ketones Negative (Negative) mg/dL Urine Blood Large H (Negative) Urine Nitrite Negative (Negative) Urine Bilirubin Negative (Negative) Urine Urobilinogen Normal (Normal) mg/dL Ur Leukocyte Esterase Moderate H (Negative) Urine Microscopic RBC 30-50 H (0-3) per hpf Urine Microscopic WBC 30-50 H (0-3) per hpf Ur Squamous Epith Cells Many H (None-Few) per lpf Amorphous Sediment Few (Few) Urine Bacteria None Seen (None-Few) per hpf Hyaline Casts Few (None-Few) per lpf Ur Culture Indicated? YES A (NO) Urine Opiates Screen Positive H (Tuiyde=744) ng/mL Ur Barbiturates Screen Negative (Griukq=039) ng/mL Ur Phencyclidine Scrn Negative (Cutoff=25) ng/mL Ur Amphetamines Screen Negative (Xtsnfh=5269) ng/mL U Benzodiazepines Scrn Negative (Yxfime=738) ng/mL Urine Cocaine Screen Negative (Cutoff= 300) ng/mL U Marijuana (THC) Screen Negative (Cutoff = 50) ng/mL Ethyl Alcohol (0-10) mg/dL 02/12/17 Range/Units 17:01 WBC (4.3-11.1) K/mcL RBC (3.82-4.97) M/mcL Hgb (11.5-15.4) g/dL Hct (35.3-44.9) % MCV (83.0-100.0) fL MCH (28.0-33.3) pg MCHC (31.6-35.5) g/dL RDW (11.5-14.5) % Plt Count (140-400) K/mcL MPV (9.4-12.4) fL Immature Gran % (0-4) % Seg Neutrophils % % Lymphocytes % % Monocytes % % Eosinophils % % Basophils % % Neutrophils # (1.6-8.9) K/mcL Lymphocytes # (0.6-4.6) K/mcL Monocytes # (0.0-1.3) K/mcL Eosinophils # (0.0-0.6) K/mcL Basophils # (0.0-0.2) K/mcL PT (9.4-12.1) Seconds INR APTT Sodium (136-145) mEq/L Potassium (3.5-4.5) mEq/L Chloride (98-109) mEq/L Carbon Dioxide (19-29) mEq/L BUN (7-20) mg/dL Creatinine (0.57-1.11) mg/dL Est GFR ( Amer) (> 60) Est GFR (Non-Af Amer) (> 60) BUN/Creatinine Ratio (6-26) Glucose (70-99) mg/dL POC Glucose 177 H (58-89) Calculated Osmolality (280-300) Calcium (8.6-10.8) mg/dL Total Bilirubin (0.2-1.2) mg/dL Direct Bilirubin (0.0-0.5) mg/dL Indirect Bilirubin (0.0-1.2) mg/dL AST (5-34) Units/L ALT (0-55) Units/L Alkaline Phosphatase (38-126) Units/L Troponin I (0-0.03) ng/mL Serum Total Protein (6.0-8.3) g/dL Albumin (3.5-5.0) g/dL Globulin (2.4-3.5) g/dL Albumin/Globulin Ratio (1.1-2.2) Urine Color (Yellow) Urine Clarity (Clear) Urine pH (5.0-8.0) pH Units Ur Specific [place] (1.010-1.025) Urine Protein (Neg-Trace) mg/dL Urine Glucose (UA) (Normal) mg/dL Urine Ketones (Negative) mg/dL Urine Blood (Negative) Urine Nitrite (Negative) Urine Bilirubin (Negative) Urine Urobilinogen (Normal) mg/dL Ur Leukocyte Esterase (Negative) Urine Microscopic RBC (0-3) per hpf Urine Microscopic WBC (0-3) per hpf Ur Squamous Epith Cells (None-Few) per lpf Amorphous Sediment (Few) Urine Bacteria (None-Few) per hpf Hyaline Casts (None-Few) per lpf Ur Culture Indicated? (NO) Urine Opiates Screen (Ojjewz=140) ng/mL Ur Barbiturates Screen (Gefnnv=500) ng/mL Ur Phencyclidine Scrn (Cutoff=25) ng/mL Ur Amphetamines Screen (Voaous=5151) ng/mL U Benzodiazepines Scrn (Usydeg=180) ng/mL Urine Cocaine Screen (Cutoff= 300) ng/mL U Marijuana (THC) Screen (Cutoff = 50) ng/mL Ethyl Alcohol (0-10) mg/dL - Radiology Data Radiology results reviewed: Yes I reviewed the patient's radiology results. - EKG Data EKG attestation: Yes I reviewed and interpreted this EKG. EKG results narrative: 02/12/2017 at 16:39. Sinus rhythm with first-degree AV block Rate 90. TX interval 234. QRS 104. QTC 407. Right axis deviation. No acute ST elevation or depression. TPA Checklist - LKW: 3-4.5 hrs Add. Contraindications Patient/family understanding: The patient/family members have been counseled and understood the risk, benefit , and alternatives of treatment. S.B.Yoel. - S.[email or web address].Miriam Situation: Demographics, MOA Background: Presenting Complaint, Relevant PMH, Meds, & Allergies Assessment: Vital Signs, Course and respsone to treatment, Exam Concerns, Patient/Family Expectation, Pertinant Lab Results, Outstanding Labs Recommendation: Barrier(s) to disposition, Recommendation based on pending studies, treatments, or consults S.B.A.Virgil Report Given to: Dr. Gerri Merchant Repor Time: 20:37 Attestation Statement - Attestation Attestation: I examined this patient and my medical decision-making was reviewed with the Resident Physician. I agree with the documented findings, disposition and treatment plan as described except to the extent set forth below Pt clinically dehydrated. Lips dry and cracked, tongue and MM dry. Very little po intake today, although she feels as though she could drink. RLQ colostomy has pink stoma, brown stool. Abdomen soft, non-tender, pt denies any abdominal pain. Non-lateralizing, generalized weakness on exam. Fluids, work-up ordered. UA is negative for infection.
[2017-02-12 17:16] LABS: Bilirubin,Urine Negative (Negative); Blood,Urine Large (Negative); Clarity,Urine Turbid (Clear); Color,Urine Yellow (Yellow); Glucose,Urine (UA) Normal (Normal); Ketones,Urine Negative (Negative); Leukocyte Esterase,Urine Moderate (Negative); Nitrite,Urine Negative (Negative); PH,Urine 5.5 pH Units (5.0-8.0); Protein,Urine 100 mg/dL (Neg-Trace); Specific Gravity,Urine 1.023 (1.010-1.025); Urobilinogen,Urine Normal (Normal)
[2017-02-12 17:20] LABS: Bacteria,Urine None Seen per hpf (None-Few); RBC,Urine 30-50 per hpf (0-3); Squamous Epithelial Cell,Urine Many per lpf (None-Few); WBC,Urine 30-50 per hpf (0-3)
[2017-02-12 17:21] LABS: Amphetamine Screen,Urine Negative ng/mL (Cutoff=1000); Barbiturate Screen,Urine Negative ng/mL (Cutoff=200); Benzodiazepines Screen,Urine Negative ng/mL (Cutoff=200); Cannabinoid Screen,Urine Negative ng/mL (Cutoff = 50); Cocaine Screen,Urine Negative ng/mL (Cutoff= 300); Opiate Screen,Urine Positive ng/mL (Cutoff=300); Phencyclidine Screen,Urine Negative ng/mL (Cutoff=25)
[2017-02-12 17:31] LABS: Eosinophils % 1.3 %; Hematocrit 33.6 % (35.3-44.9); Hemoglobin 10.6 g/dL (11.5-15.4); INR 1.1; Immature Granulocytes % 0.7 % (0-4); Lymphocytes # 0.4 K/mcL (0.6-4.6); Lymphocytes % 11.8 %; Mean Corpuscular HGB Conc 31.5 g/dL (31.6-35.5); Mean Corpuscular Hemoglobin 28.3 pg (28.0-33.3); Mean Corpuscular Volume 89.8 fL (83.0-100.0); Mean Platelet Volume 10.2 fL (9.4-12.4); Monocytes # 0.3 K/mcL (0.0-1.3); Monocytes % 10.1 %; Neutrophils # 2.3 K/mcL (1.6-8.9); Platelet Count 254 K/mcL (140-400); Prothrombin Time 11.4 Seconds (9.4-12.1); Red Blood Count 3.74 M/mcL (3.82-4.97); Red Cell Distribution Width 16.6 % (11.5-14.5); Segmented Neutrophils % 75.1 %
[2017-02-12 17:39] LABS: Alanine Aminotransferase 13 Units/L (0-55); Albumin 2.5 g/dL (3.5-5.0); Albumin/Globulin Ratio 0.7 (1.1-2.2); Alkaline Phosphatase 118 Units/L (38-126); Aspartate Amino Transferase 17 Units/L (5-34); BUN/Creatinine Ratio 12 (6-26); Bilirubin,Direct 0.2 mg/dL (0.0-0.5); Bilirubin,Indirect 0.3 mg/dL (0.0-1.2); Bilirubin,Total 0.5 mg/dL (0.2-1.2); Blood Urea Nitrogen 8 mg/dL (7-20); Calcium 10.4 mg/dL (8.6-10.8); Carbon Dioxide 19 mEq/L (19-29); Chloride 103 mEq/L (98-109); Globulin 3.7 g/dL (2.4-3.5); Glucose 139 mg/dL (70-99); Osmolality,Calculated 279 (280-300); Potassium 4.5 mEq/L (3.5-4.5); Sodium 134 mEq/L (136-145); Total Protein 6.2 g/dL (6.0-8.3); eGFR For African Americans > 60 (> 60); eGFR For Non-African Americans > 60 (> 60)
[2017-02-12 17:45] LABS: Ethanol < 10 mg/dL (0-10)
[2017-02-12 17:49] LABS: Amorphous Sediment,Urine Few (Few); Hyaline Casts,Urine Few per lpf (None-Few)
[2017-02-12] MEDS ORDERED: Acetaminophen 325 MG TABLET PO PRN (23:44)
[2017-02-12] MEDS ORDERED: Naloxone 0.4 MG/ML INJ IVP PRN (23:44)
[2017-02-12] MEDS ORDERED: *HR* Morphine 2 MG/ML SYRINGE IVP PRN (23:44)
[2017-02-12] MEDS ORDERED: Ondansetron 4 MG/2 ML VIAL IVP PRN (23:44)
[2017-02-12] MEDS ORDERED: D5% in Water 1,000 ML IVC PRN (23:53)
[2017-02-12] MEDS ORDERED: *HR* Dextrose 50 % in Water (Syg) 50 ML SYRINGE IVP PRN (23:53)
[2017-02-12] MEDS ORDERED: Dextrose Gel 15 GM PO PRN ×2 (23:53)
--- NOTE | 2017-02-13 00:01 | Internal Med History&Physical ---
Date of Encounter: 02/12/17 Time of Encounter: 23:00 Assessment and Plan (1) Toxic metabolic encephalopathy Current visit: Yes Status: Resolved . (2) Delirium due to conditions classified elsewhere Current visit: Yes Status: Acute . (3) Complex regional pain syndrome of right upper extremity Current visit: Yes Status: Chronic . Qualifiers: Complex regional pain syndrome type: type I Qualified Code(s): G90.511 - Complex regional pain syndrome I of right upper limb (4) Frail elderly Current visit: Yes Status: Acute . (5) Generalized weakness Current visit: Yes Status: Acute .. (6) Type 2 diabetes mellitus Current visit: Yes Status: Chronic . Qualifiers: Diabetes mellitus complication status: with unspecified complications Diabetes mellitus fci insulin use: without termination clerk use Qualified Code( s): E11.8 - Type 2 diabetes mellitus with unspecified complications (7) Chronic neutropenia Current visit: Yes Status: Chronic . (8) Urinary cast, hyaline Current visit: Yes Status: Acute . (9) Dehydration Current visit: Yes Status: Acute . (10) Pyuria Current visit: Yes Status: Acute . (11) Microscopic hematuria Current visit: Yes Status: Chronic . (12) Colostomy in place Current visit: Yes Status: Chronic . Internal Medicine - H&P: HPI Chief complaint: Right arm pain. Generalized weakness. Confusion. Admitted From: Emergency Dept Plans for Post Hospital Care: Transfer Group Home Facility History of present illness: Ms. Hardy is a 76 year old female with history noteworthy of type II DM, hypertension, GERD, RA, osteoarthritis, osteoporosis, iron deficiency/anemia, chronic neutropenia, vitamin D deficiency, permanent colostomy s/p partial colectomy for diverticular disease, former smoker. Patient is admitted to the [facility] via the emergency department when she presents via EMS services with reports of alteration in mental status. The patient was at the cancer Center the morning of admission to receive her second intravenous iron injection attending staff noticed that the patient was confused and disoriented. He also complained of right arm pain from prior infusion site of intravenous iron in the right arm. Patient's history is noteworthy for recent hospitalization in January with acute comminuted right proximal femur fracture following a fall. Left reduction internal fixation of the hip was performed at [facility]. She is currently recovering at [facility] and rehabilitation facility. The patient was found to be able to follow commands. However she was very non-participatory in conversation. at bedside stated she started complaining about her right hand pain over the weekend prior to this presentation. She had some nausea and some vomiting episodes diminished oral intake. Her personality began to change. Findings in the ED: Temperature 99 degrees pulse 95 respirations 16 BP 138/61 O2 saturation 93% room air. WBC 3.1 hemoglobin 10.6 platelets 254,000. RDW 16.6. Differential normal. PT 11.4 INR 1.1. Comprehensive metabolic panel normal. Sodium 134 osmolality 279. BUN 8 creatinine 0.69. Hepatic function normal. Albumin 2.5 total 6.2. Alcohol less than 10. Troponin 0.01. Urine drug screen positive for opiates. Urinalysis large blood and moderate leukocyte esterase. 50-RBC. 50-WBC. Many squamous epithelial cells. Few hyalin cast. CT head without contrast demonstrated no active intracranial process. Small vessel ischemic changes noted. Chest x-ray demonstrated no acute active cardiopulmonary process. Right upper extremity venous duplex negative for DVT. EKG sinus rhythm. First- degree AV block. No acute ischemic changes. Preliminary impression suggests acute toxic metabolic encephalopathy-delirium. Etiology to be determined. Low- grade temperature and resting hypoxemia noted. Mild hyponatremia and hypoosmolality. Reports of decreased oral intake of late points to mild dehydration. Clear source for infection as cause for current symptoms yet to be determined. Urinary sediment is suspicious but not diagnostic of UTI. Patient denies any localizing pain outside of right upper extremity. Generalized weakness without lateralizing findings on exam. Patient presents further risk for acute decline. Workup and treatments will proceed comprehensively. The patient was visited and interviewed and examined. Cumulative laboratory and radiographic data base will be considered and discussed. Pertinent ancillary medical records including ECW and PCI documentation when available was reviewed and considered. Given the patient's presenting concerns, past medical history, clinical findings and symptoms, she is admitted at this time will undergo further evaluation and disposition. Orders were written as per Computerized physician order booker system.......................................................................... .................... Consultative opinions will be sought as clinical circumstances justify. Pain management needs will be addressed. Laboratory /radiographic data base will be updated as appropriate. Studies include: Cultures of blood urine, UA, UDS, ddimer, amylase, lipase, pt/inr, aptt , prolactin, cpk, cardiac injury panel, BNP, B12, folate, metabolic and hematologic panel, magnesium, phosphorus, ionized calcium, thyroid panel, lipid profile, A1c, C-peptide, CRP, sedimentation rate, respiratory virus panel, blood gas, lactic acid, serologies, etc. Precautions: Aspiration, fall, delirium protocol/surveillance initiated. Telemetry with continuous hemodynamic monitoring and pulse oximetry initiated. Orthostatic vital signs. Empiric antibiotic coverage(?UTI): Intravenous Rocephin pending culture data. Special studies: CT head/abd/pelvis/RUE/cervical spine, chest x-ray, telemetry, EKG. Pulmonary toilet: Incentive spirometry. PRN: aerosol bronchodilator, mucolytic, antitussive. Supplemental oxygen. Corticosteroid therapy PRN. CPAP/BiPAP supplemental oxygen delivery PRN. Aerosol Mucomyst therapy PRN. Fluid and electrolyte repletion efforts will proceed. Careful attention to fluid balance and renal recovery will be emphasized. Avoidance of nephrotoxic exposure and adverse drug drug interaction in the setting of impaired renal function will be monitored closely. Acute coronary syndrome protocol/surveillance initiated. Acute EYELET MAKER injury protocol/surveillance initiated DVT and PUD prophylaxis initiated: PPI therapy, intermittent pneumatic cuffs. Subcutaneous heparin. Early ambulation will be encouraged. Immunization updates recommended. Influenza and pneumococcal vaccinations as part of ongoing preventative healthcare recommendations strongly recommended. Smoking cessation counseling addressed. Patient is a nonsmoker per records. Advanced care directive discussion addressed. Patient does declare healthcare restrictions at this time as per records. Cardiovascular risk appraisal and cardiovascular risk reduction efforts will be emphasized. Physical and occupational therapy consulted to evaluate patient's functional capacity and progressive mobility as her circumstances permit. Speech therapy consult to evaluate patient's risk for dysphagia and recommendations for appropriate diet initiation. Sliding scale insulin coverage, ADA dietary restraint and schedule an as-needed basis fingerstick glucose assessments were initiated. Nutrition/diabetes education counseling may be considered as circumstances justify. Outpatient medication schedules will be reviewed, confirmed and facilitated as appropriate. Reconciliation of home treatments including adjustments, substitutions and reintroduction into the treatment regimen will address necessary maintenance therapies for chronic pre-existing medical conditions. Plan of care has been reviewed and discussed in detail with the patient. Questions addressed. Hospital course dictated by clinical findings, treatment response and potential consultative interventions. Patient is a risk for further acute clinical decline due to advanced age/frailty , chief complaints and comorbidities. Condition is serious. Prognosis is guartded. CODE STATUS is INR Comfort Care arrest DNI. Past Med Surg Social Fam HX - Past Medical History Source: old records reviewed Medical history: arthritis, diabetes, GERD, hypertension, kidney stones, osteoporosis, RA, renal disease, valvular heart disease, other (Iron deficiency anemia. Diverticulosis coli. Chronic mass, tail of pancreas able at CT abdomen 2013. DDD/DJD of spine.) Psychiatric history: anxiety, depression, other - Past Surgical History Surgical History: cholecystectomy, colectomy, colostomy, herniorrhaphy, knee replacement, ureteral stent, other - Social History Smoking Status: Former smoker Smokeless Tobacco Status: No Alcohol use: none Drug use: none Occupational status: retired Current living situation: ECF, Other Activity Level: Mostly sedentary, Other Recent Out of Country Travel Within the Last 8 Weeks: No Exposure or Possible Exposure to Illness During Travel: No - Family History Son Name: Candido Hardy Age: 53 Living Status: Still Living Hx Family Cardiac Disorders: No Hx Family Respiratory Disorders: Yes Hx Family Cancer: No Hx Family GI Disorders: No Hx Family Genitourinary Disorders: No Hx Family Endocrine Disorder: No Hx Family Musculoskeletal Disorders: No Hx Family Neuromuscular Disorders: No Hx Family Neurologic Disorders: No Hx Family HEENT Disorders: No Hx Family Autoimmune Disorders: Yes (Autoimmune dx, unable to remember name) Hx Family Reproductive Disorders: No Hx Family Psychosocial Disorders: No Hx Family Medical Disorders: No Internal Medicine - H&P: Meds Glimepiride [Amaryl] 4 mg PO QAM 09/22/15 [History] Metformin [Glucophage] 1,000 mg PO BID 09/22/15 [History] Metoprolol [Lopressor] 25 mg PO BID 09/22/15 [History] Omeprazole [PriLOSEC] 20 mg PO QAM 09/22/15 [History] Amlodipine Besylate 10 mg PO DAILY 03/22/16 [History] Potassium Chloride [K-Tab ER] 20 meq PO QPM 03/22/16 [History] Calcium Citrate 400 mg PO TID 01/17/17 [History] Cholecalciferol (D-3) [Vitamin D] 2,000 unit PO DAILY 01/17/17 [History] Docusate [Colace] 100 mg PO BID 01/17/17 [History] Magnesium 200 mg PO QAM 01/17/17 [History] Metoclopramide HCl 5 mg PO TID 01/17/17 [History] Sennosides [Senna] 8.6 mg PO BID 01/17/17 [History] Sucralfate [Carafate] 1 gm PO TIDAC 01/17/17 [History] Ferrous Sulfate 325 mg PO DAILY@0800 #30 tablet 01/20/17 [Rx] OxyCODONE Immed Rel [Roxicodone 5 MG] 5 mg PO Q4HR PRN #20 tablet 01/20/17 [Rx] Ascorbate Calcium/Bioflavonoid [Gabriela-C 500 mg Tablet] 1 each PO DAILY 02/12/17 [History] Multivitamin [Multi-Day Vitamins] 1 each PO DAILY 02/12/17 [History] Nut.tx.gluc.intoler,Lac-Fr,Soy [Glucerna 1.5 Vicente] 237 ml PO BID 02/12/17 [ History] Allergies RODGER Inhibitors Adverse Reaction (Verified 01/17/17 13:54) See Comments UNSURE ampicillin Adverse Reaction (Verified 01/17/17 13:54) See Comments lisinopril Adverse Reaction (Verified 01/17/17 13:54) See Comments Tetracycline Adverse Reaction (Verified 01/17/17 13:54) See Comments ROS unobtainable: due to mental status All Systems PM: A 10-system review of systems was performed and is negative for pertinent findings except as documented above in the HPI. Allergies Allergy/AdvReac Type Severity Reaction Status Date / Time RODGER Inhibitors AdvReac See Verified 01/17/17 13:54 Comments ampicillin AdvReac See Verified 01/17/17 13:54 Comments lisinopril AdvReac See Verified 01/17/17 13:54 Comments Tetracycline AdvReac See Verified 01/17/17 13:54 Comments Patient Problems (Last Updated 02/13/17 @ 00:04 by Brian Craig MD) Anemia (Acute Medical) D64.9 DVT prophylaxis (Acute Medical) Hypertension (Acute Medical) I10 Microscopic hematuria (Acute Medical) R31.29 Nephrolithiasis (Acute Medical) N20.0 Bandemia (Acute Medical) D72.825 Goals of care, counseling/discussion (Acute Medical) Z71.89 Altered mental status (Acute Medical) R41.82 UTI (urinary tract infection) (Acute Medical) N39.0 Generalized weakness (Acute Medical) R53.[address] (Acute Surgical) Z93.3 Type 2 diabetes mellitus (Acute Medical) E11.9 Chronic neutropenia (Acute Medical) D70.9 Complex regional pain syndrome of right upper extremity (Acute Medical) G90.511 Delirium due to conditions classified elsewhere (Acute Medical) F05 Frail elderly (Acute Medical) R54 Toxic metabolic encephalopathy (Acute Medical) G92 Cellulitis (Inactive Medical) Strain of lumbar region (Inactive Medical) S39.012A - Constitutional Vitals: Temp Pulse Resp BP Pulse Ox 98.1 F 86 17 124/69 91 02/12/17 22:06 02/12/17 22:06 02/12/17 22:06 02/12/17 22:06 02/12/17 23:19 Vital Signs Temp Pulse Resp BP Pulse Ox 02/12/17 23:19 91 02/12/17 22:06 98.1 F 86 17 124/69 91 02/12/17 21:35 19 127/65 02/12/17 20:02 93 18 159/94 94 02/12/17 18:30 93 16 140/66 95 02/12/17 17:24 91 16 153/73 95 02/12/17 16:18 99 F 95 16 138/61 93 Intake and Output 02/12/17 02/12/17 02/13/17 15:59 23:59 07:59 Intake Total 1100 / 1100 Output Total 250 / 250 Balance 850 / 850 Intake: IV Fluids 1100 / 1100 0.9 % Sodium Chloride 1, 1000 / 1000 000 ML @ 3750 mls/hr IVC .Q16M ONE Rx#:[id number] Rocephin 1,000 MG In 100 / 100 Dextrose 5% (Minibag+) 100 ML 100 ML @ 200 mls/ hr IVPB ONCE ONE Rx#: [id number] Output: Stool 250 / 250 Other: Stool Size Moderate Stool Consistency liquid Stool Color Brown # Urine Diapers 1 Weight 68.946 kg Blood Glucose* 135 General appearance: Present: A&O X 1, mild distress, obese. Absent: cooperative , answers questions appropriately - Head Head exam: Present: atraumatic, normal inspection, normocephalic - Eye Eye exam: Present: EOMI, PERRL, conjuntiva pink, sclera anicteric Pupils: Present: normal accommodation, PERRL - ENT ENT exam: Present: mucous membranes dry, normal external ear exam, normal oropharynx - Neck Neck exam general surgery: Present: full ROM, supple, trachea midline. Absent: lymphadenopathy, tenderness, nuchal rigidity - Respiratory Respiratory exam: Present: decreased breath sounds, CTAB. Absent: accessory muscle use, chest wall tenderness, rales, rhonchi, stridor, wheezes - Cardiovascular Cardiovascular exam: Present: distant heart sounds, RRR, +S1, +S2. Absent: diastolic murmur, gallop, rubs, systolic murmur - GI/Abdominal GI/Abdominal exam: Present: normal bowel sounds, soft, no peritoneal signs. Absent: distended, tenderness - Extremities Exam Extremities exam: Present: warm, radial pulses palpable and symetrical. Absent : calf tenderness, cyanotic, pedal edema - Neurological Exam Neurological exam: Present: alert, altered, CN II-XII intact, no focal deficits. Absent: oriented X3, pronater drift, facial droop, speech deficit - Expanded Neurological Exam Neurological exam expanded: Present: inattentive, protecting the airway. Absent : ataxia, expressive aphasia, receptive aphasia, tremor Patient oriented to: Present: person. Absent: place, time Speech: Present: garbled Coma Scale Eye Opening: To Voice Coma Scale Motor Response: Obeys Commands Coma Scale Verbal Response: Inappropriate Coma Scale Total: 12 - Psychiatric Psychiatric exam: Present: flat affect - Skin Skin exam: Present: dry, intact, warm. Absent: petechiae, rash, urticaria, vesicles Internal Med - H&P Results - Labs CBC & Chem 7: 02/13/17 01:01 02/13/17 01:01 Labs: Short CBC 02/12/17 Range/Units 16:48 WBC 3.1 L (4.3-11.1) K/mcL Hgb 10.6 L (11.5-15.4) g/dL Hct 33.6 L (35.3-44.9) % Plt Count 254 (140-400) K/mcL Neutrophils # 2.3 (1.6-8.9) K/mcL BMP 02/12/17 Range/Units 16:48 Sodium 134 L (136-145) mEq/L Potassium 4.5 (3.5-4.5) mEq/L Chloride 103 (98-109) mEq/L Carbon Dioxide 19 (19-29) mEq/L BUN 8 (7-20) mg/dL Creatinine 0.69 (0.57-1.11) mg/dL Glucose 139 H (70-99) mg/dL Calcium 10.4 (8.6-10.8) mg/dL Cardiac Enzymes 02/12/17 Range/Units 16:48 Troponin I 0.01 (0-0.03) ng/mL Liver Function 02/12/17 Range/Units 16:48 Total Bilirubin 0.5 (0.2-1.2) mg/dL Direct Bilirubin 0.2 (0.0-0.5) mg/dL AST 17 (5-34) Units/L ALT 13 (0-55) Units/L Alkaline Phosphatase 118 (38-126) Units/L Albumin 2.5 L (3.5-5.0) g/dL Urine 02/12/17 Range/Units 16:55 Urine Color Yellow (Yellow) Urine Clarity Turbid A (Clear) Urine pH 5.5 (5.0-8.0) pH Units Ur Specific Harold 1.023 (1.010-1.025) Urine Protein 100 H (Neg-Trace) mg/dL Urine Glucose (UA) Normal (Normal) mg/dL Abnormal lab results WBC 3.1 K/mcL (4.3-11.1) L 02/12/17 16:48 RBC 3.74 M/mcL (3.82-4.97) L 02/12/17 16:48 Hgb 10.6 g/dL (11.5-15.4) L 02/12/17 16:48 Hct 33.6 % (35.3-44.9) L 02/12/17 16:48 MCHC 31.5 g/dL (31.6-35.5) L 02/12/17 16:48 RDW 16.6 % (11.5-14.5) H 02/12/17 16:48 Lymphocytes # 0.4 K/mcL (0.6-4.6) L 02/12/17 16:48 Sodium 134 mEq/L (136-145) L 02/12/17 16:48 Glucose 139 mg/dL (70-99) H 02/12/17 16:48 POC Glucose 135 (58-89) H 02/12/17 22:11 Calculated Osmolality 279 (280-300) L 02/12/17 16:48 Albumin 2.5 g/dL (3.5-5.0) L 02/12/17 16:48 Globulin 3.7 g/dL (2.4-3.5) H 02/12/17 16:48 Albumin/Globulin Ratio 0.7 (1.1-2.2) L 02/12/17 16:48 Urine Clarity Turbid (Clear) A 02/12/17 16:55 Urine Protein 100 mg/dL (Neg-Trace) H 02/12/17 16:55 Urine Blood Large (Negative) H 02/12/17 16:55 Ur Leukocyte Esterase Moderate (Negative) H 02/12/17 16:55 Urine Microscopic RBC 30-50 per hpf (0-3) H 02/12/17 16:55 Urine Microscopic WBC 30-50 per hpf (0-3) H 02/12/17 16:55 Ur Squamous Epith Cells Many per lpf (None-Few) H 02/12/17 16:55 Ur Culture Indicated? YES (NO) A 02/12/17 16:55 Urine Opiates Screen Positive ng/mL (Hfavvl=024) H 02/12/17 16:55 Laboratory Last Values WBC 3.1 K/mcL (4.3-11.1) L 02/12/17 16:48 RBC 3.74 M/mcL (3.82-4.97) L 02/12/17 16:48 Hgb 10.6 g/dL (11.5-15.4) L 02/12/17 16:48 Hct 33.6 % (35.3-44.9) L 02/12/17 16:48 MCV 89.8 fL (83.0-100.0) 02/12/17 16:48 MCH 28.3 pg (28.0-33.3) 02/12/17 16:48 MCHC 31.5 g/dL (31.6-35.5) L 02/12/17 16:48 RDW 16.6 % (11.5-14.5) H 02/12/17 16:48 Plt Count 254 K/mcL (140-400) 02/12/17 16:48 MPV 10.2 fL (9.4-12.4) 02/12/17 16:48 Immature Gran % 0.7 % (0-4) 02/12/17 16:48 Seg Neutrophils % 75.1 % 02/12/17 16:48 Lymphocytes % 11.8 % 02/12/17 16:48 Monocytes % 10.1 % 02/12/17 16:48 Eosinophils % 1.3 % 02/12/17 16:48 Basophils % 1.0 % 02/12/17 16:48 Neutrophils # 2.3 K/mcL (1.6-8.9) 02/12/17 16:48 Lymphocytes # 0.4 K/mcL (0.6-4.6) L 02/12/17 16:48 Monocytes # 0.3 K/mcL (0.0-1.3) 02/12/17 16:48 Eosinophils # 0.0 K/mcL (0.0-0.6) 02/12/17 16:48 Basophils # 0.0 K/mcL (0.0-0.2) 02/12/17 16:48 PT 11.4 Seconds (9.4-12.1) 02/12/17 16:48 INR 1.1 02/12/17 16:48 APTT TNP 02/12/17 16:48 Sodium 134 mEq/L (136-145) L 02/12/17 16:48 Potassium 4.5 mEq/L (3.5-4.5) 02/12/17 16:48 Chloride 103 mEq/L (98-109) 02/12/17 16:48 Carbon Dioxide 19 mEq/L (19-29) 02/12/17 16:48 BUN 8 mg/dL (7-20) 02/12/17 16:48 Creatinine 0.69 mg/dL (0.57-1.11) 02/12/17 16:48 Est GFR ( Amer) > 60 (> 60) 02/12/17 16:48 Est GFR (Non-Af Amer) > 60 (> 60) 02/12/17 16:48 BUN/Creatinine Ratio 12 (6-26) 02/12/17 16:48 Glucose 139 mg/dL (70-99) H 02/12/17 16:48 POC Glucose 135 (58-89) H 02/12/17 22:11 Calculated Osmolality 279 (280-300) L 02/12/17 16:48 Calcium 10.4 mg/dL (8.6-10.8) 02/12/17 16:48 Total Bilirubin 0.5 mg/dL (0.2-1.2) 02/12/17 16:48 Direct Bilirubin 0.2 mg/dL (0.0-0.5) 02/12/17 16:48 Indirect Bilirubin 0.3 mg/dL (0.0-1.2) 02/12/17 16:48 AST 17 Units/L (5-34) 02/12/17 16:48 ALT 13 Units/L (0-55) 02/12/17 16:48 Alkaline Phosphatase 118 Units/L (38-126) 02/12/17 16:48 Troponin I 0.01 ng/mL (0-0.03) 02/12/17 16:48 Serum Total Protein 6.2 g/dL (6.0-8.3) 02/12/17 16:48 Albumin 2.5 g/dL (3.5-5.0) L 02/12/17 16:48 Globulin 3.7 g/dL (2.4-3.5) H 02/12/17 16:48 Albumin/Globulin Ratio 0.7 (1.1-2.2) L 02/12/17 16:48 Urine Color Yellow (Yellow) 02/12/17 16:55 Urine Clarity Turbid (Clear) A 02/12/17 16:55 Urine pH 5.5 pH Units (5.0-8.0) 02/12/17 16:55 Ur Specific Harold 1.023 (1.010-1.025) 02/12/17 16:55 Urine Protein 100 mg/dL (Neg-Trace) H 02/12/17 16:55 Urine Glucose (UA) Normal mg/dL (Normal) 02/12/17 16:55 Urine Ketones Negative mg/dL (Negative) 02/12/17 16:55 Urine Blood Large (Negative) H 02/12/17 16:55 Urine Nitrite Negative (Negative) 02/12/17 16:55 Urine Bilirubin Negative (Negative) 02/12/17 16:55 Urine Urobilinogen Normal mg/dL (Normal) 02/12/17 16:55 Ur Leukocyte Esterase Moderate (Negative) H 02/12/17 16:55 Urine Microscopic RBC 30-50 per hpf (0-3) H 02/12/17 16:55 Urine Microscopic WBC 30-50 per hpf (0-3) H 02/12/17 16:55 Ur Squamous Epith Cells Many per lpf (None-Few) H 02/12/17 16:55 Amorphous Sediment Few (Few) 02/12/17 16:55 Urine Bacteria None Seen per hpf (None-Few) 02/12/17 16:55 Hyaline Casts Few per lpf (None-Few) 02/12/17 16:55 Ur Culture Indicated? YES (NO) A 02/12/17 16:55 Urine Opiates Screen Positive ng/mL (Eyrell=276) H 02/12/17 16:55 Ur Barbiturates Screen Negative ng/mL (Fbqpmc=320) 02/12/17 16:55 Ur Phencyclidine Scrn Negative ng/mL (Cutoff=25) 02/12/17 16:55 Ur Amphetamines Screen Negative ng/mL (Smawdl=0478) 02/12/17 16:55 U Benzodiazepines Scrn Negative ng/mL (Gaucgj=910) 02/12/17 16:55 Urine Cocaine Screen Negative ng/mL (Cutoff= 300) 02/12/17 16:55 U Marijuana (THC) Screen Negative ng/mL (Cutoff = 50) 02/12/17 16:55 Ethyl Alcohol < 10 mg/dL (0-10) 02/12/17 16:48 - Impressions Chest X-Ray 02/12/17 16:24 IMPRESSION: No acute process. D/ / Corey Barclay MD / Corey Barclay MD Interpreting Provider: Corey Barclay MD Head CT 02/12/17 16:26 IMPRESSION: No acute intracranial abnormality. D/ / Loki Bolton MD / Loki Bolton MD Interpreting Provider: Loki Bolton MD - Attending Attestation Vital Signs Temp Pulse Resp BP Pulse Ox 02/12/17 23:19 91 02/12/17 22:06 98.1 F 86 17 124/69 91 02/12/17 21:35 19 127/65 02/12/17 20:02 93 18 159/94 94 02/12/17 18:30 93 16 140/66 95 02/12/17 17:24 91 16 153/73 95 02/12/17 16:18 99 F 95 16 138/61 93 Allergies RODGER Inhibitors Adverse Reaction (Verified 01/17/17 13:54) See Comments UNSURE ampicillin Adverse Reaction (Verified 01/17/17 13:54) See Comments lisinopril Adverse Reaction (Verified 01/17/17 13:54) See Comments Tetracycline Adverse Reaction (Verified 01/17/17 13:54) See Comments Home Medications Medication Instructions Recorded Confirmed Type Glimepiride [Amaryl] 4 mg PO QAM 09/22/15 02/12/17 History Metformin [Glucophage] 1,000 mg PO BID 09/22/15 02/12/17 History Metoprolol [Lopressor] 25 mg PO BID 09/22/15 02/12/17 History Omeprazole [PriLOSEC] 20 mg PO QAM 09/22/15 02/12/17 History Amlodipine Besylate 10 mg PO DAILY 03/22/16 02/12/17 History Potassium Chloride [K-Tab ER] 20 meq PO QPM 03/22/16 02/12/17 History Calcium Citrate 400 mg PO TID 01/17/17 02/12/17 History Cholecalciferol (D-3) [Vitamin D] 2,000 unit PO DAILY 01/17/17 02/12/17 History Docusate [Colace] 100 mg PO BID 01/17/17 02/12/17 History Magnesium 200 mg PO QAM 01/17/17 02/12/17 History Metoclopramide HCl 5 mg PO TID 01/17/17 02/12/17 History Sennosides [Senna] 8.6 mg PO BID 01/17/17 02/12/17 History Sucralfate [Carafate] 1 gm PO TIDAC 01/17/17 02/12/17 History Ascorbate Calcium/Bioflavonoid 1 each PO DAILY 02/12/17 02/12/17 History [Gabriela-C 500 mg Tablet] Multivitamin [Multi-Day Vitamins] 1 each PO DAILY 02/12/17 02/12/17 History Nut.tx.gluc.intoler,Lac-Fr,Soy 237 ml PO BID 02/12/17 02/12/17 History [Glucerna 1.5 Vicente] Medications Acetaminophen (Tylenol) 650 mg PO Q6HR PRN PRN Reason: Mild Pain (1-3) Stop: 08/14/17 23:45 Dextrose/Water (Dextrose 50% (Syg)) 25 ml IVP AD PRN PRN Reason: Hypoglycemia Stop: 08/14/17 23:54 Glucagon (Glucagen) 1 mg IM ONCE PRN PRN Reason: Hypoglycemia Stop: 08/14/17 23:54 Glucose (Gluctose) 15 gm PO ONCE PRN PRN Reason: Hypoglycemia Stop: 08/14/17 23:54 Glucose (Gluctose) 30 gm PO ONCE PRN PRN Reason: Hypoglycemia Stop: 08/14/17 23:54 Sodium Chloride (0.9 % Sodium Chloride) 1,000 mls @ 50 mls/hr IVC .Q20H DAYLIN Stop: 08/14/17 23:46 Ceftriaxone Sodium 1,000 mg/ (Dextrose) 100 mls @ 200 mls/hr IVPB Q24H DAYLIN Stop: 08/15/17 09:01 Dextrose (Dextrose 5%) 1,000 mls @ 100 mls/hr IVC .Q10H PRN PRN Reason: HYPOGLYCEMIA Stop: 08/14/17 23:54 Insulin Human Lispro (Humalog) 0 units SQ Q6HR DAYLIN PRN Reason: Protocol Stop: 08/15/17 00:01 Morphine Sulfate (Morphine Sulfate) 2 mg IVP Q4HR PRN PRN Reason: Severe Pain (7-10) Stop: 08/14/17 23:45 Naloxone HCl (Narcan) 0.4 mg IVP Q2MIN PRN PRN Reason: Opioid Reversal Stop: 08/14/17 23:45 Ondansetron HCl (Zofran) 4 mg IVP Q8HR PRN PRN Reason: Nausea And Vomiting Stop: 08/14/17 23:45 Oxycodone HCl (Roxicodone) 5 mg PO Q6HR PRN PRN Reason: Moderate Pain (4-6) Stop: 08/14/17 23:45 Pantoprazole Sodium (Protonix) 40 mg IVP DAILY DAYLIN Stop: 08/15/17 09:01 Discontinued Medications Sodium Chloride (0.9 % Sodium Chloride) 1,000 mls @ 3,750 mls/hr IVC .Q16M ONE Stop: 02/12/17 16:40 Last Infusion: 02/12/17 21:19 Dose: 0 mls/hr Ceftriaxone Sodium 1,000 mg/ (Dextrose) 100 mls @ 200 mls/hr IVPB ONCE ONE Stop: 02/12/17 20:06 Last Infusion: 02/12/17 21:20 Dose: 0 mls/hr I & O 02/09/17 02/10/17 02/11/17 02/12/17 23:59 23:59 23:59 23:59 Intake Total 1100 / 1100 Output Total 250 / 250 Balance 850 / 850 Weight 68.946 kg Intake: IV Fluids 1100 / 1100 0.9 % Sodium Chloride 1, 1000 / 1000 000 ML @ 3750 mls/hr IVC .Q16M ONE Rx#:[id number] Rocephin 1,000 MG In 100 / 100 Dextrose 5% (Minibag+) 100 ML 100 ML @ 200 mls/ hr IVPB ONCE ONE Rx#: [id number] Output: Stool 250 / 250 Other: Stool Size Moderate Stool Consistency liquid Stool Color Brown # Urine Diapers 1 Blood Glucose* 135 Nursing Notes 02/12/17 20:05 Transport Report by Rob Tillman Date: 02/12/17 Transport Method: Ambulatory RODGER Inhibitors Adverse Reaction (Verified 01/17/17 13:54) See Comments ampicillin Adverse Reaction (Verified 01/17/17 13:54) See Comments lisinopril Adverse Reaction (Verified 01/17/17 13:54) See Comments Tetracycline Adverse Reaction (Verified 01/17/17 13:54) See Comments Resuscitation Status 02/12/17 16:24 ECG 12 lead ECG [ECG] Stat Mode Of Transportation: Ambulatory Reason For Exam: altered mental status Exam Performed At:: [facility] Oxygen: Mental Status: Fall Risk: Isolation: Nurse Required for Transport: No ___ Yes Limb Restrictions: No ___ Yes Behavioral issue/Risk for Elopement: No ___ Yes Telemetry Room Notification: Destination: MRI XRAY STRESS ULTRASOUND CT DIALYSIS ENDO OTHER: Depart Time: Nurse: Transporter: Arrive Time: Received by: ___ Return Time: Nurse: Transporter: ] Initialized on 02/12/17 20:05 - END OF NOTE 02/12/17 18:45 Vascular Preliminary by Nae Chavez Venous doppler; Pt appears NEGATIVE DVT right upper extremity. Preliminary given to Pt RN Initialized on 02/12/17 18:45 - END OF NOTE 02/12/17 16:32 Transport Report by Ritchie Haddad Date: 02/12/17 Transport Method: Ambulatory RODGER Inhibitors Adverse Reaction (Verified 01/17/17 13:54) See Comments ampicillin Adverse Reaction (Verified 01/17/17 13:54) See Comments lisinopril Adverse Reaction (Verified 01/17/17 13:54) See Comments Tetracycline Adverse Reaction (Verified 01/17/17 13:54) See Comments Resuscitation Status 02/12/17 16:24 XR chest 1V portable [XR] Stat Mode Of Transportation: Ambulatory Reason For Exam: altered mental status Exam Performed At:: [facility] ECG 12 lead ECG [ECG] Stat Mode Of Transportation: Ambulatory Reason For Exam: altered mental status Exam Performed At:: [facility] 02/12/17 16:26 CT head/brain wo con [CT] Stat Mode Of Transportation: Ambulatory Reason For Exam: AMS Order Doctor: Checo Rhodes Exam Performed At:: [facility] Allergic to Contrast: No Oxygen: Mental Status: Fall Risk: Isolation: Nurse Required for Transport: No ___ Yes Limb Restrictions: No ___ Yes Behavioral issue/Risk for Elopement: No ___ Yes Telemetry Room Notification: Destination: MRI XRAY STRESS ULTRASOUND CT DIALYSIS ENDO OTHER: Depart Time: Nurse: Transporter: Arrive Time: Received by: ___ Return Time: Nurse: Transporter: ] Initialized on 02/12/17 16:32 - END OF NOTE Assessments/Treatments 12 lead ECG assessment Start: 02/12/17 16: 24 Freq: NOW Status: Complete Document 02/12/17 16:54 JDA (Rec: 02/12/17 18:19 JDA [id number]) EKG Time EKG Completed 16:39 EKG performed by Fred GLASER EKG shown to and signed by Dr.Palacci QUIGLEY Altered Mental Status Assessment Start: 02/12/17 16: 17 Freq: Status: Active Document 02/12/17 16:26 JDA (Rec: 02/12/17 16:32 JDA [id number]) Altered Mental Status Sepsis Infection Criteria Present none Sepsis SIRS Criteria HR > 90 bpm Sepsis Organ Dysfunction Criteria none Present Sepsis Screen No Definite Risk Sepsis Action Taken no action required Symptoms/Complaint Altered Mental Status Onset JPTA Severity Moderate Consistency of Symptoms Unknown Level Of Consciousness Awake Alert Appropriate Follows Commands Patient Orientation Person Place Time Name Age Date of Day of Month Day of Week Month Year Time of Day Patient Behavior Appropriate Cooperative Ability to Follow Directions Fair Impaired Cognition Yes Respiratory Depth Normal Skin Temperature Warm Skin Moisture Dry Eye Opening Spontaneous Motor Response Obeys Commands Verbal Response Oriented Coma Scale Total 15 ED Comment Pt presents with C/O AMS and RUE pain that started today and has been persistent. Pt was sent from cancer center while being evaluated due to changes in mental status and C /O pain to RUE. ED Discharge Assessment Start: 02/12/17 16: 17 Freq: Status: Complete Document 02/12/17 21:35 PATRICIA (Rec: 02/12/17 21:36 PATRICIA [id number]) ED Discharge Assessment ED Discharge Disposition Admitted ED Condition on Discharge Good Med Rec/Patient Pharmacy Completed? Yes Admitted to 3B Bed assigned 3B41 Transported by EMS transport team Report given to Nurse Care transferred to (name/credentials) Minesh, RN Information relayed patient's care treatments medications given condition recent/anticipated changes Clinical Documentation Summary Provided Yes Pain Scale 0 Pain Scale Used Standard (1-10) Blood Pressure 127/65 Heart rate 94 Respiratory Rate 19 Oxygen Delivery Room Air Oxygen Saturation 94 Critical Care Minutes 0 Fall Precautions Acute Start: 02/12/17 22: 06 Freq: Q12H Status: Active Document 02/12/17 23:19 BMD (Rec: 02/12/17 23:47 BMD [email or web address]) [facility] Fall Risk Assessment Tool High Fall Risk-Implement High Fall Risk History of more than one fall interventions per protocol within 6 months before admission Fall Risk Category High Risk Fall Risk Interventions Low Risk Interventions Bed in lowest position Top side rails up x 2 Secure brake on bed Use properly fitting non-skid footwear Call light and frequently needed objects within reach Encourage patients/families to call for assistance when needed Fall education including risk assessment, injury risk and routine/ Inspect environment for safety and communication risk Supervise and assist with toileting/ADLs as needed Moderate Risk Interventions Institue fall-risk tooklit ( yellow flag, yellow non-skid socks and High Risk Interventions Remain with patient while toileting Activate bed/chair exit Family History-Meaningful Use Start: 02/12/17 22: 06 Freq: .Once Status: Active Document 02/12/17 22:44 BMD (Rec: 02/12/17 22:59 BMD [id number]) Family History-Meaningful Use Son Name Candido Hardy Age (years of age) 53 Living Status Still Living Hx Family Cardiac Disorders No Hx Family Respiratory Disorders Yes Hx Family Cancer No Hx Family GI Disorders No Hx Family Genitourinary Disorders No Hx Family Endocrine Disorder No Hx Family Musculoskeletal Disorders No Hx Family Neuromuscular Disorders No Hx Family Neurologic Disorders No Hx Family HEENT Disorders No Hx Family Autoimmune Disorders Yes: Autoimmune dx, unable to remember name Hx Family Reproductive Disorders No Hx Family Psychosocial Disorders No Hx Family Medical Disorders No Glucose, blood point of care measurement Start: 02/12/17 16: 24 Freq: .ONCE Status: Active Document 02/12/17 17:01 JDA (Rec: 02/12/17 17:01 JDA [id number]) Blood Glucose Assessment Blood Glucose* 177 Document 02/12/17 22:12 KW (Rec: 02/12/17 22:12 KW [id number]) Blood Glucose Assessment Blood Glucose* 135 IV-Invasive Line Management Start: 02/12/17 22: 06 Freq: Q8H Status: Active Document 02/12/17 23:19 BMD (Rec: 02/12/17 23:47 BMD [email or web address]) IV/Invasive Line Assessment Right Forearm Reason for Line Insertion/Rationale for Provide Access for IV Insertion Medication(s) Provide Access for Emergency IV Catheter Type Peripheral IV Site Observation Patent [place]mer Dressing Applied Window Dressing Dry/Intact Line Care Saline Flush P-Locked Intake and Output, Strict Start: 02/12/17 22: 06 Freq: Status: Active Document 02/12/17 22:35 [id number] (Rec: 02/12/17 22:37 [id number]) Intake and Output Number of Urine Diapers 1 Ostomy Type Colostomy Output, Stool Amount 250 Stool Size Moderate Stool Consistency liquid Stool Color Brown Measure weight Start: 02/12/17 22: 06 Freq: Status: Active Document 02/12/17 22:06 KW (Rec: 02/12/17 22:06 KW [id number]) Height and Weight Weight 68.946 kg Weight Measurement Method Built in [facility] NIHSS Start: 02/12/17 16: 17 Freq: ONCE Status: Complete Document 02/12/17 16:26 JDA (Rec: 02/12/17 16:32 JDA [id number]) NIH Stroke Scale Telemedicine used* No LOC Drowsy, but arousable Month, Age Answers both correctly 1. Open, then close eyes 2. Make fist, Performs both correctly then let go Ability to follow examiner's finger Normal across horizontal plane Visual stimulus to pt's visual field No visual loss quadrants Shows teeth, raise eyebrows, squeeze Normal eyes shut Left: Extends arms, palms down holds for No drift for 10 seconds 10 seconds Right: Extends arms, palms down holds No drift for 10 seconds for 10 seconds Left: While supine, hold leg at 30 No movement degrees for 5 seconds Right: While supine, hold leg at 30 No movement degrees for 5 seconds Finger to nose. Heel down eric. Present in TWO limbs Pin prick to face, arm, trunk, and leg. Normal Compare side to side Name items, describe a picture, and read No aphasia sentences Evaluate speech clarity by pt repeating Normal listed words Use prior testing Modality=visual, Normal tactile/auditory, spacial NIHSS Total Score 11 NIHSS Modified Start: 02/12/17 16: 17 Freq: Status: Active Document 02/12/17 23:19 BMD (Rec: 02/12/17 23:47 BMD [email or web address]) Modified NIH Stroke Scale LOC Alert Month, Age Answers both correctly 1. Open, then close eyes 2. Make fist, Performs both correctly then let go Shows teeth, raise eyebrows, squeeze Normal eyes shut Left: Extends arms, palms down holds for No drift for 10 seconds 10 seconds Right: Extends arms, palms down holds No drift for 10 seconds for 10 seconds Left: While supine, hold leg at 30 No drift for 5 seconds degrees for 5 seconds Right: While supine, hold leg at 30 No drift for 5 seconds degrees for 5 seconds NIHSS Modified Score 0 Coma Scale Eye Opening Spontaneous Coma Scale Motor Response Obeys Commands Coma Scale Verbal Response Confused Coma Scale Total 14 Speech Pattern Clear Slowed Clinical Quality Manager Strength Left Greater Than Right Push/Pull Equal Numbness/Tingling No Level Of Consciousness Awake Alert Appropriate Follows Commands Patient Orientation Person Place Time Name Age Date of Year Time of Day Patient Behavior Appropriate Cooperative Ability to Follow Directions Fair Impaired Cognition No Bilateral Pupil Reaction Reactive Pupil Size (mm) 3 Neurological Symptoms Confusion Behavioral Changes Oxygen Delivery Method Room Air Education Completed On Co-Morbid DX That Diabetes Can Contribute To Stroke Smoking Alcohol Use Reviewed Importance Of Compliant Care/ Yes Treatment & Risk Factors Co-morbid Disease Literature Or Source Yes Information Given [NE Education Given To Patient Family/Friend Demonstrated Understanding of Education Yes Given NPO (Nursing Order) Start: 02/12/17 16: 24 Freq: NOW Status: Complete Document 02/12/17 16:26 JDA (Rec: 02/12/17 16:32 JDA [id number]) Observation Admission Assessment Start: 02/12/17 22: 06 Freq: .once Status: Active Document 02/12/17 22:44 BMD (Rec: 02/12/17 22:59 BMD [id number]) General Questions Date of Arrival on Unit 02/12/17 Time of Arrival on Unit 22:35 Admitted From Emergency Dept Chief Complaint UTI, right arm pain History Provided By Significant Other Orientation To Call Light Bed Phone TV Bathroom Smoking Policy Visiting Hours Procedures ID Bracelet On Bands applied ID band Patient Health Portal Patient was provided information on Yes accessing patient portal Patient Requests Portal Enrollment No Reason No Portal Enrollment No Email Advance Directives Advance Directives Yes Advance Directives Information Provided Yes Advance Directives on File No Living Will Yes 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 of Spinning 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 Operator Hydraulic Yes Power of Spinning Lathe Operator Hydraulic Name Mahi Hardy Power of Spinning Lathe Operator Hydraulic Patient Rights Copy of Rights Given and Verbalizes Yes Understanding Tobacco Free [place]: Copy of AHS Yes Statement Given and Patient Verbalizes Understanding Communication Ability Preferred Language Armenian Ability to Follow Directions Poor/Unable Able to Read Yes Able to Write Yes Hearing Ability Hard of Hearing Visual Assistive Devices Glasses Pain Assessment Do You Have Any Ongoing (Chronic) Pain Yes: Arthritis Problems What treatment or medications are you states "pills" receiving for pain management Educated on Pain Scale Yes Past Medical History Medical history diabetes hypertension RA other Female Surgical History cholecystectomy colectomy colostomy herniorrhaphy knee replacement other Additional surgical history kidney sx, hip repair R w/ pins Psychiatric history no psych history depression Smoking Status Former smoker Smokeless Tobacco Status No Alcohol use none Drug use none Occupational status retired Current living situation With Family Activity level Uses cane/walker Recent Out of Country Travel Within the No Last 8 Weeks Exposure or Possible Exposure to Illness No During Travel Functional Assessment Employment Status Retired Eating (Feeding) Ability Independent Bathing Ability Independent Upper Body Dressing Ability Independent Lower Body Dressing Ability Independent Ambulation Ability Modified Independent Toileting Ability Independent Bladder Continent Bowel Continent Date of Last Known Bowel Movement 02/12/17 Psychosocial Over Age 75 and Lives Alone or Over Age No 80 Potential Need for Follow-up Care (ECF, Yes Home Health, ECT) Developmentally Disabled or History of No Mental Health Problems Responsible for Care of Others No Financial Concerns No Suspected Abuse or Neglect No Social Service Consult Needed Yes Oxygen administration Start: 02/12/17 22: 06 Freq: Q12H Status: Active Document 02/12/17 23:19 BMD (Rec: 04/03/17 23:47 BMD [email or web address]) Oxygen O2 Sat by Pulse Oximetry 91 Oxygen Delivery Method Room Air Patient Belongings Start: 02/12/17 22: 06 Freq: .ONCE Status: Active Document 02/12/17 22:44 BMD (Rec: 02/12/17 22:59 BMD [id number]) Patient Belongings Belongings With Patient on Admission Yes In Patient Closet Patient Belongings Socks Belongings Comment gown, Patient Rounding Start: 02/12/17 16: 17 Freq: Q30M Status: Active Document 02/12/17 16:26 JDA (Rec: 02/12/17 16:32 JDA [id number]) Patient Rounding Safety Call Light Within Reach Bed Position Low Bed Brake On Side Rails Up X2 Rounding Completed? Yes Patient Rounding Updated patient/family on Plan of Care Checked for Patient Positioning Patient Awake Document 02/12/17 17:24 JDA (Rec: 02/12/17 18:37 JDA [id number]) Patient Rounding Safety Call Light Within Reach Bed Position Low Bed Brake On Side Rails Up X2 Rounding Completed? Yes Patient Rounding Updated patient/family on Plan of Care Checked for Patient Positioning Patient Awake Document 02/12/17 18:30 JDA (Rec: 02/12/17 18:38 JDA [id number]) Patient Rounding Safety Call Light Within Reach Bed Position Low Bed Brake On Side Rails Up X2 Rounding Completed? No Patient Rounding Updated patient/family on Plan of Care Checked for Patient Positioning Patient Awake Patient Rounding Start: 02/12/17 22: 06 Freq: Q1H Status: Active Document 02/12/17 22:06 KW (Rec: 02/12/17 22:06 KW [id number]) Hourly Rounding Hourly Rounding Checked for Patient Positioning Patient Personal Items Placed Within Reach Hourly Rounding Completed No Patient Awake Is family present? No Safety Call Light Within Reach Bed Position Low Bed Exit Alarm Fall Precautions Phone Within Reach Bed Brake On Side Rails Up X2 Are the Floors Free From Trip Hazards? Yes Is the Room Free From Clutter? Yes Turn and Postion Bedrest No Turn Q 2HR No Document 02/12/17 23:19 BMD (Rec: 02/12/17 23:47 BMD [email or web address]) Hourly Rounding Hourly Rounding Checked for Patient Positioning Patient Personal Items Placed Within Reach Hourly Rounding Completed No Patient Awake Is family present? Yes Equipment in Use Specialty Bed Safety Call Light Within Reach Bed Position Low Bed Exit Alarm Fall Precautions Phone Within Reach Bed Brake On Side Rails Up X2 Are the Floors Free From Trip Hazards? Yes Is the Room Free From Clutter? Yes Turn and Postion Bedrest No Turn Q 2HR No Patient Position Back Sepsis Screening Start: 02/12/17 22: 06 Freq: Q8H Status: Active Document 02/12/17 23:19 BMD (Rec: 02/12/17 23:47 BMD [id number]) Sepsis Screening Sepsis Infection Criteria Present suspected infection Sepsis SIRS Criteria WBC > 12k or < 4k or bands > 10% Sepsis Screen No Definite Risk Sepsis Action Taken no action required Skin Risk Assessment Scale Start: 02/12/17 22: 06 Freq: Q12H Status: Active Document 02/12/17 23:19 BMD (Rec: 02/12/17 23:47 BMD [email or web address]) Skin Risk Assessment Scale Moisture Risk Occasionally Moist Sensory Perception Slightly Limited Activity Risk Bedfast Mobility Risk Very Limited Nutrition Risk Adequate Friction & Shear Risk Potential Problem Skin Risk Total Score (points) 14 System Review Start: 02/12/17 22: 06 Freq: Q8H Status: Active Document 02/12/17 23:19 BMD (Rec: 02/12/17 23:47 BMD [email or web address]) Pain Assessment Pain Present Reports No Pain Neurological Assessment Eye Opening Spontaneous Motor Obeys Commands Verbal Confused Coma Scale Total 14 Neurologic Status Agitation/Confusion Patient Orientation Person Time Arousable To Name Speech Pattern Slowed Patient Behavior Appropriate Cooperative Mood Description Calm Relaxed Bilateral Pupil Reaction Reactive Pupil Size (mm) 3 Pupil [place] PERRLA Scleral Edema No Clinical Quality Manager Strength Left Greater Than Right Push/Pull Equal Bilat Weak Numbness/Tingling No Facial Symmetry Symmetrical Corneal Reflex Present Bilateral Blink Present Cough/Gag Normal Doll's-Eye Absent Cardiovascular Assessment Signs and Symptoms Pedal Edema Heart Sounds S1 & S2 Pulse Rhythm Regular Jugular Vein Distention None Capillary Refill < 3 Seconds Circulatory Tenderness Description None Right Radial 2+ Left Radial 2+ Right Dorsalis Pedis 1+ Left Dorsalis Pedis 1+ Right Foot Type Non-Pitting Chest Pain Complaint No Mechanical Prophylaxis No Cardiac Monitoring Heart Rate 86 Rhythm Sinus Rhythm First Degree Block MS Interval 0.25 QRS Interval 0.10 QT Interval 0.34 Monitor Number 2400 Industrial Maintenance Repairer Limits 145/45 Strip placed in Chart Yes Monitor History Reviewed Yes Memory Cleared No Respiratory Assessment Effort Normal for Patient Spontaneous Non-Labored Depth Normal Respiratory Pattern Regular Chest Shape Normal Expansion Symmetrical All Lung [place]on Clear Oxygen Delivery Method Room Air Cough Description None Sputum Amount None Gastrointestinal Assessment Abdomen Description Soft Non-Tender Round 3 or more loose stools, in less than 24 No hours Nausea/Vomiting Presence None GI Comment: Colostomy upper left quadrant All Four Quadrants Active Flatus Presence Present Genitourinary Assessment Bladder Pattern Incontinent Incontinence Urge Voiding Method Brief Bladder Distention None Suprapubic Tenderness with Palpation No Comment: No urine to assess at this time, will continue to monitor . Integumentary Assessment Nail Bed Appearance Clymer Temperature Warm Moisture Dry Turgor Elastic Color Normal All Pressure Points Assessed No Evidence of Incision/Wounds/Breakdown Yes: Blanchable excoriation to coccyx area, alyven in place. Mucous membranes moist, pink and intact Yes Oral Cavity Normal Musculoskeletal Assessment Musculoskeletal Symptoms Generalized Weakness Teaching Record Start: 02/12/17 22: 06 Freq: Q12H Status: Active Document 02/12/17 23:19 BMD (Rec: 02/12/17 23:47 BMD [id number]) Teaching Record: General Education Topics Disease Process Hospital Environment Diet Exercise/Activity Risk Factors Signs/Symptoms Response Verbalize understanding Methods Discussion Demonstration Handout Recipient Patient Significant Other Education Provided: Details Admit packet. 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 General Appearance in no apparent distress Work Related Injury? No Mode of arrival EMS Arrival via EMS [facility] Source patient EMS Limitations altered mental status Ebola Risk: Travel/Contact With Anyone No From Affected Area/s Temperature (97.6 F-99.6 F) 99 F Temperature Source Oral Pulse Rate 95 Respiratory Rate 16 Blood Pressure 138/61 O2 Sat by Pulse Oximetry 93 Oxygen Delivery Room Air Height 1.63 m Weight 69.853 kg Weight Measurement Method Estimated by Patient Pain Scale 4 Pain Scale Used Standard (1-10) Medical history diabetes hypertension RA other Female surgical history hip replacement Additional surgical history PMH kidney operation Psychiatric history no psych history Smoking Status Unknown if ever smoked Smokeless Tobacco Status No Alcohol Use none Drug Use none Patient resides with/at Spouse ECF Safety Concerns Feels Safe At This Time Do you currently feel hopless, have No thoughts of self harm, or thoughts of harming others History of fall in last 14 days? No VISUAL C DEVELOPER history no VISUAL C DEVELOPER history Influenza vaccine up to date Yes Pneumonia vaccine up to date Yes Tetanus UTD yes Vital Signs Assessment Start: 02/12/17 16: 24 Freq: PROTOCOL Status: Active Document 02/12/17 17:24 JDA (Rec: 02/12/17 18:37 JDA [id number]) ED Vital Signs Pain Reported No Pain Reported Blood Pressure 153/73 Pulse Rate 91 Respiratory Rate 16 Pulse Oximetry 95 Oxygen Delivery Room Air Document 02/12/17 18:30 JDA (Rec: 02/12/17 18:38 JDA [id number]) ED Vital Signs Pain Reported No Pain Reported Blood Pressure 140/66 Pulse Rate 93 Respiratory Rate 16 Pulse Oximetry 95 Oxygen Delivery Room Air Document 02/12/17 20:02 PATRICIA (Rec: 02/12/17 20:02 PATRICIA [id number]) ED Vital Signs Pain Reported No Pain Reported Pain Scale 0 Pain Scale Used Standard (1-10) Blood Pressure 159/94 Pulse Rate 93 Rhythm Regular Strength Normal Respiratory Rate 18 Depth Normal Effort Normal for Patient Spontaneous Non-Labored Pattern Regular Pulse Oximetry 94 Oxygen Delivery Room Air Vital Signs Assessment Start: 02/12/17 22: 06 Freq: Q4H Status: Active Document 02/12/17 22:06 KW (Rec: 02/12/17 22:07 KW [id number]) Vital Signs (Critical Care) Temperature (97.6 F-99.6 F) 99 F Temperature Source Oral Pulse Rate 93 Respiratory Rate 19 Pulse Oximetry 94 Blood Pressure 127/65 Vital Signs with MEWS Temperature (97.6 F-99.6 F) 98.1 F Temperature Source Oral Pulse Rate 86 Respiratory Rate 17 Pulse Oximetry 91 Oxygen Delivery Room Air Blood Pressure 124/69 Blood Pressure Location Right Arm Source Automatic Cuff Position Supine Neuro Status *recalled from last Alert documentation MEWS Score 1 Orders 02/12/17 16:24 12 lead ECG assessment [RC] NOW Cardiac monitoring [RC] .ONCE Glucose, blood poc measurement [RC] .ONCE NPO (Nursing Order) [RC] NOW Saline lock [RC] .ONCE Vital Signs Assessment [] PROTOCOL XR chest 1V portable [XR] Stat Mode Of Transportation: Ambulatory Reason For Exam: altered mental status Exam Performed At:: [facility] Additional Notes/Special Instructions: 30 ECG 12 lead ECG [ECG] Stat Mode Of Transportation: Ambulatory Reason For Exam: altered mental status Exam Performed At:: [facility] 02/12/17 16:25 IV insertion - peripheral [RC] ONCE 0.9 % Sodium Chloride 1,000 ml IVC 3,750 mls/hr 02/12/17 16:26 CT head/brain wo con [CT] Stat Mode Of Transportation: Ambulatory Reason For Exam: AMS Order Doctor: [facility] Rhodes Exam Performed At:: [facility] Allergic to Contrast: No 02/12/17 16:48 Activated Partial Thrombo Time [COAG] Stat Comment: Specimen: Send someone from the department to collect Basic Metabolic Panel Stat Comment: Specimen: Send someone from the department to collect Complete Blood Count [HEME] Stat Comment: Specimen: Send someone from the department to collect Ethanol Stat Comment: Specimen: Send someone from the department to collect Hepatic Panel Stat Comment: Specimen: Send someone from the department to collect Prothrombin Time INR [COAG] Stat Comment: Specimen: Send someone from the department to collect Troponin I Stat Comment: Specimen: Send someone from the department to collect 02/12/17 16:55 Culture,Urine [RM] Stat URBAN Source: UR Specimen Description: Drug Screen, Urine [UCHEM] Stat Comment: Specimen: Has been collected Urinalysis Reflex Cult & Micro [URIN] Stat Comment: Specimen: Has been collected Source of specimen:: Catheter 02/12/17 17:01 POC Glucometer Test [POC] Routine Venous Doppler [EV venous imaging UE RT] Stat Mode Of Transportation: Ambulatory Reason For Exam: RUE pain, IV placed, concern for DVT thrombophlebi Order Doctor: Checo Rhodes Exam Performed At:: [facility] 02/12/17 19:37 CefTRIAXone [Rocephin] 1,000 mg D5% in Water (Mini-Bag+) [Dextrose 5% (Minibag +) 100 ML] 100 ml IVPB ONCE 02/12/17 20:[address] Stat Comment: Reason for Visit: AMS, UTI, generalized weakness 02/12/17 22:11 POC Glucometer Test [POC] Routine 02/12/17 23:44 Aspiration precautions [RC] .CONTINUOUS Falls precautions (Ken[place]-Duckworth [RC] ONCE Peripheral IV [RC] CONT Placement to Observation Routine Physician Instructions: Reason for Visit: Right arm pain. Altered mental status. Is VTE Prophylaxis Indicated?: Yes Vital Signs Assessment [RC] Q4H CT cervical spine wo con [CT] Routine Mode Of Transportation: Ambulatory Reason For Exam: Right arm pain and weakness. Order Doctor: Brian Craig Exam Performed At:: [facility] CT head/brain wo con [CT] Routine Mode Of Transportation: Ambulatory Reason For Exam: 10. Right arm pain/ weakness. Order Doctor: Brian Craig Exam Performed At:: [facility] Allergic to Contrast: No CT shoulder RT wo con [CT] Routine Mode Of Transportation: Ambulatory Reason For Exam: Right arm pain and weakness. Order Doctor: Brian Craig Exam Performed At:: [facility] Allergic to Contrast: No C-Reactive Protein Stat Specimen: Send someone from the department to collect Comment: Lactic Acid ([facility] Only) Stat Specimen: Send someone from the department to collect Comment: Magnesium Stat Specimen: Send someone from the department to collect Comment: Phosphorous Stat Specimen: Send someone from the department to collect Comment: Prolactin Stat Specimen: Send someone from the department to collect Comment: Acetaminophen [Tylenol] 650 mg PO Q6HR PRN Morphine [Morphine Sulfate] 2 mg IVP Q4HR PRN Naloxone [Narcan] 0.4 mg IVP Q2MIN PRN Ondansetron [Zofran] 4 mg IVP Q8HR PRN OxyCODONE Immed Rel [Roxicodone] 5 mg PO Q6HR PRN Resuscitation Status: Active [RES] Routine Resuscitation Status: [id number] Comment: 02/12/17 23:45 Bed rest [RC] .CONT Physician Instructions: Bed rest w/bedside commode [RC] .PRN Cardiac Monitoring Med/Surg [RC] .CONT Telemetry Reason: ACS/CP Continuous pulse oximetry [RC] CONT Comment: Measure intake and output [RC] QSHIFT Measure weight [RC] DAILY RT has an order or consult [RC] NOW 0.9 % Sodium Chloride 1,000 ml IVC 50 mls/hr Up with Assist Daily Physician Instructions: Comment: 02/12/17 23:46 Oxygen via nasal cannula Nasal Cannula 2 lpm Comment: Titrate O2 to main O2 sat greater than: 92% 02/12/17 23:49 Consult to Occupational Therapy [CONS] Routine Comment: Evaluate, develop and implement POC Consult to Physical Therapy [CONS] Routine Comment: Evaluate, develop and implement POC 02/12/17 23:53 Glucose, blood poc measurement [RC] .Q6 Hypoglycemia Treatment Orders [RC] .once Notify provider [RC] once Physician Instructions: @ 100 MLS/HR [prn Hypoglycemia] D5% in Water [Dextrose 5%] 1,000 ml IVC 100 mls/ hr Dextrose 50 % in Water (Syg) [Dextrose 50% (Syg)] 25 ml IVP AD PRN Dextrose Gel [Gluctose] 15 gm PO ONCE PRN Dextrose Gel [Gluctose] 30 gm PO ONCE PRN Glucagon, Human Recombinant [GlucaGen] 1 mg IM ONCE PRN 02/12/17 Breakfast NPO Diet Diet Modifications: 02/12/17 Dinner NPO Diet Diet Modifications: ice chips...sips water w/meds... 02/12/17 Lunch NPO Diet Diet Modifications: 02/13/17 00:00 Insulin LISPRO [HumaLOG] See Protocol SQ Q6HR 02/13/17 04:00 Ammonia AM 0400 Specimen: Send someone from the department to collect Comment: Basic Metabolic Panel AM 0400 Specimen: Send someone from the department to collect Comment: Complete Blood Count w/o Diff [HEME] AM 0400 Specimen: Send someone from the department to collect Comment: Hgb A1C AM 0400 Specimen: Send someone from the department to collect Comment: Thyroid Stimulating Hormone AM 0400 Specimen: Send someone from the department to collect Comment: 02/13/17 09:00 CefTRIAXone [Rocephin] 1,000 mg D5% in Water (Mini-Bag+) [Dextrose 5% (Minibag +) 100 ML] 100 ml IVPB Q24H Pantoprazole [Protonix] 40 mg IVP DAILY 02/13/17 23:45 Up with Assist Daily Physician Instructions: Comment: 02/14/17 23:45 Up with Assist Daily Physician Instructions: Comment: Laboratory Results 02/12/17 02/12/17 02/12/17 Range/Units 16:48 16:48 16:48 WBC 3.1 L (4.3-11.1) K/mcL RBC 3.74 L (3.82-4.97) M/mcL Hgb 10.6 L (11.5-15.4) g/dL Hct 33.6 L (35.3-44.9) % MCV 89.8 (83.0-100.0) fL MCH 28.3 (28.0-33.3) pg MCHC 31.5 L (31.6-35.5) g/dL RDW 16.6 H (11.5-14.5) % Plt Count 254 (140-400) K/mcL MPV 10.2 (9.4-12.4) fL Immature Gran % 0.7 (0-4) % Seg Neutrophils % 75.1 % Lymphocytes % 11.8 % Monocytes % 10.1 % Eosinophils % 1.3 % Basophils % 1.0 % Neutrophils # 2.3 (1.6-8.9) K/mcL Lymphocytes # 0.4 L (0.6-4.6) K/mcL Monocytes # 0.3 (0.0-1.3) K/mcL Eosinophils # 0.0 (0.0-0.6) K/mcL Basophils # 0.0 (0.0-0.2) K/mcL PT 11.4 (9.4-12.1) Seconds INR 1.1 APTT TNP Sodium 134 L (136-145) mEq/L Potassium 4.5 (3.5-4.5) mEq/L Chloride 103 (98-109) mEq/L Carbon Dioxide 19 (19-29) mEq/L BUN 8 (7-20) mg/dL Creatinine 0.69 (0.57-1.11) mg/dL Est GFR ( Amer) > 60 (> 60) Est GFR (Non-Af Amer) > 60 (> 60) BUN/Creatinine Ratio 12 (6-26) Glucose 139 H (70-99) mg/dL POC Glucose (58-89) Calculated Osmolality 279 L (280-300) Calcium 10.4 (8.6-10.8) mg/dL Total Bilirubin 0.5 (0.2-1.2) mg/dL Direct Bilirubin 0.2 (0.0-0.5) mg/dL Indirect Bilirubin 0.3 (0.0-1.2) mg/dL AST 17 (5-34) Units/L ALT 13 (0-55) Units/L Alkaline Phosphatase 118 (38-126) Units/L Troponin I (0-0.03) ng/mL Serum Total Protein 6.2 (6.0-8.3) g/dL Albumin 2.5 L (3.5-5.0) g/dL Globulin 3.7 H (2.4-3.5) g/dL Albumin/Globulin Ratio 0.7 L (1.1-2.2) Urine Color (Yellow) Urine Clarity (Clear) Urine pH (5.0-8.0) pH Units Ur Specific Harold (1.010-1.025) Urine Protein (Neg-Trace) mg/dL Urine Glucose (UA) (Normal) mg/dL Urine Ketones (Negative) mg/dL Urine Blood (Negative) Urine Nitrite (Negative) Urine Bilirubin (Negative) Urine Urobilinogen (Normal) mg/dL Ur Leukocyte Esterase (Negative) Urine Microscopic RBC (0-3) per hpf Urine Microscopic WBC (0-3) per hpf Ur Squamous Epith Cells (None-Few) per lpf Amorphous Sediment (Few) Urine Bacteria (None-Few) per hpf Hyaline Casts (None-Few) per lpf Ur Culture Indicated? (NO) Urine Opiates Screen (Vlswhv=121) ng/mL Ur Barbiturates Screen (Xsogtq=258) ng/mL Ur Phencyclidine Scrn (Cutoff=25) ng/mL Ur Amphetamines Screen (Uidrcq=0102) ng/mL U Benzodiazepines Scrn (Lebfkc=669) ng/mL Urine Cocaine Screen (Cutoff= 300) ng/mL U Marijuana (THC) Screen (Cutoff = 50) ng/mL Ethyl Alcohol < 10 (0-10) mg/dL 02/12/17 02/12/17 02/12/17 Range/Units 16:48 16:55 16:55 WBC (4.3-11.1) K/mcL RBC (3.82-4.97) M/mcL Hgb (11.5-15.4) g/dL Hct (35.3-44.9) % MCV (83.0-100.0) fL MCH (28.0-33.3) pg MCHC (31.6-35.5) g/dL RDW (11.5-14.5) % Plt Count (140-400) K/mcL MPV (9.4-12.4) fL Immature Gran % (0-4) % Seg Neutrophils % % Lymphocytes % % Monocytes % % Eosinophils % % Basophils % % Neutrophils # (1.6-8.9) K/mcL Lymphocytes # (0.6-4.6) K/mcL Monocytes # (0.0-1.3) K/mcL Eosinophils # (0.0-0.6) K/mcL Basophils # (0.0-0.2) K/mcL PT (9.4-12.1) Seconds INR APTT Sodium (136-145) mEq/L Potassium (3.5-4.5) mEq/L Chloride (98-109) mEq/L Carbon Dioxide (19-29) mEq/L BUN (7-20) mg/dL Creatinine (0.57-1.11) mg/dL Est GFR ( Amer) (> 60) Est GFR (Non-Af Amer) (> 60) BUN/Creatinine Ratio (6-26) Glucose (70-99) mg/dL POC Glucose (58-89) Calculated Osmolality (280-300) Calcium (8.6-10.8) mg/dL Total Bilirubin (0.2-1.2) mg/dL Direct Bilirubin (0.0-0.5) mg/dL Indirect Bilirubin (0.0-1.2) mg/dL AST (5-34) Units/L ALT (0-55) Units/L Alkaline Phosphatase (38-126) Units/L Troponin I 0.01 (0-0.03) ng/mL Serum Total Protein (6.0-8.3) g/dL Albumin (3.5-5.0) g/dL Globulin (2.4-3.5) g/dL Albumin/Globulin Ratio (1.1-2.2) Urine Color Yellow (Yellow) Urine Clarity Turbid A (Clear) Urine pH 5.5 (5.0-8.0) pH Units Ur Specific Harold 1.023 (1.010-1.025) Urine Protein 100 H (Neg-Trace) mg/dL Urine Glucose (UA) Normal (Normal) mg/dL Urine Ketones Negative (Negative) mg/dL Urine Blood Large H (Negative) Urine Nitrite Negative (Negative) Urine Bilirubin Negative (Negative) Urine Urobilinogen Normal (Normal) mg/dL Ur Leukocyte Esterase Moderate H (Negative) Urine Microscopic RBC 30-50 H (0-3) per hpf Urine Microscopic WBC 30-50 H (0-3) per hpf Ur Squamous Epith Cells Many H (None-Few) per lpf Amorphous Sediment Few (Few) Urine Bacteria None Seen (None-Few) per hpf Hyaline Casts Few (None-Few) per lpf Ur Culture Indicated? YES A (NO) Urine Opiates Screen Positive H (Pgtlnr=320) ng/mL Ur Barbiturates Screen Negative (Ribjxt=943) ng/mL Ur Phencyclidine Scrn Negative (Cutoff=25) ng/mL Ur Amphetamines Screen Negative (Kzaiqq=9057) ng/mL U Benzodiazepines Scrn Negative (Kgsqae=008) ng/mL Urine Cocaine Screen Negative (Cutoff= 300) ng/mL U Marijuana (THC) Screen Negative (Cutoff = 50) ng/mL Ethyl Alcohol (0-10) mg/dL 02/12/17 02/12/17 Range/Units 17:01 22:11 WBC (4.3-11.1) K/mcL RBC (3.82-4.97) M/mcL Hgb (11.5-15.4) g/dL Hct (35.3-44.9) % MCV (83.0-100.0) fL MCH (28.0-33.3) pg MCHC (31.6-35.5) g/dL RDW (11.5-14.5) % Plt Count (140-400) K/mcL MPV (9.4-12.4) fL Immature Gran % (0-4) % Seg Neutrophils % % Lymphocytes % % Monocytes % % Eosinophils % % Basophils % % Neutrophils # (1.6-8.9) K/mcL Lymphocytes # (0.6-4.6) K/mcL Monocytes # (0.0-1.3) K/mcL Eosinophils # (0.0-0.6) K/mcL Basophils # (0.0-0.2) K/mcL PT (9.4-12.1) Seconds INR APTT Sodium (136-145) mEq/L Potassium (3.5-4.5) mEq/L Chloride (98-109) mEq/L Carbon Dioxide (19-29) mEq/L BUN (7-20) mg/dL Creatinine (0.57-1.11) mg/dL Est GFR ( Amer) (> 60) Est GFR (Non-Af Amer) (> 60) BUN/Creatinine Ratio (6-26) Glucose (70-99) mg/dL POC Glucose 177 H 135 H (58-89) Calculated Osmolality (280-300) Calcium (8.6-10.8) mg/dL Total Bilirubin (0.2-1.2) mg/dL Direct Bilirubin (0.0-0.5) mg/dL Indirect Bilirubin (0.0-1.2) mg/dL AST (5-34) Units/L ALT (0-55) Units/L Alkaline Phosphatase (38-126) Units/L Troponin I (0-0.03) ng/mL Serum Total Protein (6.0-8.3) g/dL Albumin (3.5-5.0) g/dL Globulin (2.4-3.5) g/dL Albumin/Globulin Ratio (1.1-2.2) Urine Color (Yellow) Urine Clarity (Clear) Urine pH (5.0-8.0) pH Units Ur Specific Harold (1.010-1.025) Urine Protein (Neg-Trace) mg/dL Urine Glucose (UA) (Normal) mg/dL Urine Ketones (Negative) mg/dL Urine Blood (Negative) Urine Nitrite (Negative) Urine Bilirubin (Negative) Urine Urobilinogen (Normal) mg/dL Ur Leukocyte Esterase (Negative) Urine Microscopic RBC (0-3) per hpf Urine Microscopic WBC (0-3) per hpf Ur Squamous Epith Cells (None-Few) per lpf Amorphous Sediment (Few) Urine Bacteria (None-Few) per hpf Hyaline Casts (None-Few) per lpf Ur Culture Indicated? (NO) Urine Opiates Screen (Peefpf=036) ng/mL Ur Barbiturates Screen (Bjrkov=697) ng/mL Ur Phencyclidine Scrn (Cutoff=25) ng/mL Ur Amphetamines Screen (Qtxpkw=1647) ng/mL U Benzodiazepines Scrn (Bsjwky=662) ng/mL Urine Cocaine Screen (Cutoff= 300) ng/mL U Marijuana (THC) Screen (Cutoff = 50) ng/mL Ethyl Alcohol (0-10) mg/dL Radiology Impressions Chest X-Ray 02/12/17 16:24 IMPRESSION: No acute process. D/ / Corey Barclay MD / Corey Barclay MD Interpreting Provider: Corey Barclay MD Head CT 02/12/17 16:26 IMPRESSION: No acute intracranial abnormality. D/ / Loki Bolton MD / Loki Bolton MD Interpreting Provider: Loki Bolton MD Discharge Information ED Provider: Cresencio Lo Status: Departed Time Seen by Provider: 02/12/17 16:24 Condition: Fair Triaged At: 02/12/17 16:18 Emergency Discharge Date/Time: 02/12/17 22:20 Emergency Discharge Disposition: Admitted As Inpatient Clinical Impression Altered mental status UTI (urinary tract infection) Generalized weakness Emergency Discharge Comment: Admit Intervention Last Done ED Altered Mental Status Assessment 02/12/17 16:26 Query Result Sepsis Infection Criteria Present none Sepsis SIRS Criteria HR > 90 bpm Sepsis Organ Dysfunction Criteria none Present Sepsis Screen No Definite Risk Sepsis Action Taken no action required Altered Mental Status Symptoms/Complaint Altered Mental Status Altered Mental Status Onset JPTA Altered Mental Status Severity Moderate Altered Mental Status Consistency of Unknown Symptoms Level Of Consciousness Awake Alert Appropriate Follows Commands Patient Orientation Person Place Time Name Age Date of Day of Month Day of Week Month Year Time of Day Patient Behavior Appropriate Cooperative Ability to Follow Directions Fair Impaired Cognition Yes Respiratory Depth Normal Skin Temperature Warm Skin Moisture Dry Coma Scale Eye Opening Spontaneous Coma Scale Motor Response Obeys Commands Coma Scale Verbal Response Oriented Coma Scale Total 15 ED Comment Pt presents with C/O AMS and RUE pain that started today and has been persistent. Pt was sent from cancer center while being evaluated due to changes in mental status and C /O pain to RUE. ED Discharge Assessment 02/12/17 21:35 Query Result ED Discharge Disposition Admitted ED Condition on Discharge Good Med Rec/Patient Phamracy completed? Yes ED Admit to 3B Bed assigned [id number] Transported by EMS transport team Report given to Nurse Care transferred to Minesh RN Information relayed patient's care treatments medications given condition recent/anticipated change Clinical Documentation Summary Provided Yes Severity scale (1-10) 0 Pain Scale Used Standard (1-10) Blood Pressure 127/65 Heart rate 94 Respiratory Rate 19 Oxygen Delivery Room Air Pulse Oximetry Reading 94 Critical Care Minutes 0 Observation Discharge Date/Time: Observation Discharge Disposition: Observation Discharge Comment: Instructions: Stand-Alone Forms: Prescriptions: Visit Report - Forms: - Referrals:
[2017-02-13] MEDS: Insulin LISPRO 300 UNITS/3 ML VIAL SQ SCH ×4 (00:37→17:38)
[2017-02-13] MEDS: 0.9 % Sodium Chloride 1,000 ML IVC SCH (01:07)
[2017-02-13 01:10] LABS: Hematocrit 28.3 % (35.3-44.9); Mean Corpuscular HGB Conc 31.8 g/dL (31.6-35.5); Mean Corpuscular Hemoglobin 29.8 pg (28.0-33.3); Mean Corpuscular Volume 93.7 fL (83.0-100.0); Mean Platelet Volume 10.5 fL (9.4-12.4); Platelet Count 231 K/mcL (140-400); Red Blood Count 3.02 M/mcL (3.82-4.97); Red Cell Distribution Width 16.6 % (11.5-14.5)
[2017-02-13 01:22] LABS: BUN/Creatinine Ratio 13 (6-26); Blood Urea Nitrogen 8 mg/dL (7-20); Calcium 9.9 mg/dL (8.6-10.8); Carbon Dioxide 21 mEq/L (19-29); Chloride 106 mEq/L (98-109); Glucose 87 mg/dL (70-99); Osmolality,Calculated 280 (280-300); Potassium 3.5 mEq/L (3.5-4.5); Sodium 136 mEq/L (136-145); eGFR For African Americans > 60 (> 60); eGFR For Non-African Americans > 60 (> 60)
[2017-02-13 01:23] LABS: Magnesium 0.8 mg/dL (1.6-2.6); Phosphorous 2.4 mg/dL (2.3-4.7)
[2017-02-13 01:45] LABS: Prolactin 28.73 ng/mL (5.18-26.53)
--- NOTE | 2017-02-13 09:04 | Electrocardiograph Report ---
[place] [id number] Test Date: 2017-02-12 Pat Name: Sheree Hardy Department: 103 Room: 3B41 Gender: F Medical Data Analyst: : 1940 Requested By: Checo Rhodes Order Number: [id number] Reading MD: Cresencio Echols MD Measurements Intervals [place] Rate: 90 P: 137 IN: 234 QRS: 225 QRSD: 104 T: 125 QT: 359 QTc: 407 Interpretive Statements SINUS RHYTHM WITH FIRST DEGREE AV BLOCK POOR R WAVE PROGRESSION ARM LEADS REVERSED CONSIDER REPEATING ECG Electronically Signed On 02-13-2017 9:02:07 EDT by Cresencio Echols MD
[2017-02-13] MEDS ORDERED: Magnesium Sulfate 2 GM in D5% in Water 100 ML IVPB ONE (09:05)
[2017-02-13] MEDS: Pantoprazole 40 MG VIAL IVP SCH (12:12)
--- NOTE | 2017-02-13 15:33 | Venous Imaging Report ---
UE Venous Duplex Patient Name:Sheree Hardy Order Number:[id number] Procedure Date:02/12/2017 Date:1940Age:76 yrs Gender:Female Location:[facility] ED Room #: ER30 Stonemason:Nae Parks RDCS Referring MD:Checo Rhodes DO performance specialist:None Reading MD:Juan Manuel Hayden MD , FACS Primary Indications:Pain in limb Secondary Indications: Impressions: Right upper extremity: normal superficial and deep exam. Recommendations: Preliminary given to Dr Rhodes in ED. Findings Venous Duplex Results: Right: Venous imaging of the upper extremity reveals full patency and normal vessel compressibility of the right jugular, right subclavian, right axillary, right brachial, right cephalic, right basilic, right radial and right ulnar. Doppler signals in the evaluated veins were normal. Prior Study: No prior study available for comparison. Upper Extremity Venous Duplex Side Vein Compress Spontaneous Flow Augment Right Jugular Normal Yes Phasic Yes Right Subclavian Normal Yes Phasic Yes Right Axillary Normal Yes Phasic Yes Right Brachial Normal Yes Phasic Yes Right Cephalic Normal Yes Phasic Yes Right Basilic Normal Yes Phasic Yes Right Radial Normal Yes Phasic Yes Right Ulnar Normal Yes Phasic Yes Updated by Juan Manuel Hayden MD, FACS on 02/13/2017 3:27:38 PM Juan Manuel Hayden MD electronically signed on 02/13/2017 3:27:59 PM with status of Final
--- NOTE | 2017-02-13 15:39 | Internal Med Progress Note ---
Date of Encounter: 02/13/17 Time of Encounter: 10:30 - Assessment and plan (1) Altered mental status Current Visit: Yes Status: Resolved Assessment and plan: Patient alert and oriented 3 during my interaction with her. Of note, tox screen is positive for opiates. She is not listed as being on any opiates at home. OARRS report negative for controlled substance prescriptions. (2) Hand pain, right Current Visit: Yes Status: Acute Assessment and plan: Unclear etiology. We will obtain plain films. Possible cellulitis/infection. Patient did have an IV superiorly located in her right forearm however that IV did not infiltrate. Awaiting plain films. Hand is neurovascularly intact. (3) Anemia Current Visit: No Status: Chronic Assessment and plan: Currently consistent with her baseline, we will continue to trend Qualifiers: Anemia type: iron deficiency Iron deficiency anemia type: other iron deficiency Qualified Code(s): D50.8 - Other iron deficiency anemias (4) DVT prophylaxis Current Visit: No Status: Acute Assessment and plan: IPC's ordered. Pharmacologic prophylaxis contraindicated secondary to anemia (5) Hypertension Current Visit: No Status: Chronic Assessment and plan: Uncontrolled however her home medications have just been continued, will continue to trend after she receives her home medications of metoprolol, amlodipine Qualifiers: Hypertension type: essential hypertension Qualified Code(s): I10 - Essential (primary) hypertension (6) UTI (urinary tract infection) Current Visit: Yes Status: Acute Assessment and plan: Patient her state that she started to have confusion and dysuria while down in [place] last week she was seen at a local ER and was started on Levaquin and discharged home. Her states that the confusion only worsened. We will continue ceftriaxone. Urine culture pending. (7) Generalized weakness Current Visit: Yes Status: Acute Assessment and plan: OT and PT consultations have both recommended ECF placement for inpatient rehabilitation. Her states that she has been at [facility] for approximately one week after subsequent fall and leg fracture. social services assistant on board. 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 Continue sliding scale while admitted. Qualifiers: Diabetes mellitus complication status: with unspecified complications Diabetes mellitus computer terminal operator insulin use: without fdc use Qualified Code( s): E11.8 - Type 2 diabetes mellitus with unspecified complications (12) Chronic neutropenia Current Visit: Yes Status: Chronic Assessment and plan: Chronic, follows with oncology Dr. Yung. No signs of acute sepsis. - Subjective Interval history: Patient seen and examined. On examination, patient is sitting upright in bed conversing with her . Patient currently denies pain and states she only has pain in her right hand whenever it is moved. She denies shortness of breath. She states she is starting to get her appetite back stating he had been decreased since Sunday. - Constitutional Vitals: Temp Pulse Resp BP Pulse Ox 98.1 F 88 16 187/77 96 02/13/17 11:36 02/13/17 13:04 02/13/17 13:04 02/13/17 13:04 02/13/17 13:04 General appearance: Present: A&O X 3, pleasant, no acute distress, answers questions appropriately - Head Head exam: Present: atraumatic, normocephalic - Eye Eye exam: Present: PERRL, conjuntiva pink, sclera anicteric Pupils: Present: PERRL - Neck Neck exam general surgery: Present: supple, trachea midline. Absent: lymphadenopathy - Respiratory Respiratory exam: Present: decreased breath sounds. Absent: accessory muscle use, rales, respiratory distress, rhonchi, wheezes - Cardiovascular Cardiovascular exam: Present: RRR, +S1, +S2. Absent: diastolic murmur, gallop, rubs, systolic murmur - GI/Abdominal GI/Abdominal exam: Present: normal bowel sounds, soft, no peritoneal signs. Absent: distended, tenderness - Extremities Exam Extremities exam: Present: warm, radial pulses palpable and symetrical. Absent : calf tenderness, cyanotic, pedal edema - Expanded Upper Extremities Exam Forearm wrist exam: Present: erythema, swelling, tenderness Hand wrist exam: Present: erythema, swelling, tenderness Vascular exam: Present: normal capillary refill. Absent: vascular compromise - Neurological Exam Neurological exam: Present: alert, CN II-XII intact, oriented X3, no focal deficits, strengths equal and symetr throughout. Absent: pronater drift, facial droop, speech deficit - Skin Skin exam: Present: dry, intact, pallor, warm Internal Medicine: Result - Labs CBC & Chem 7: 02/13/17 01:01 02/13/17 01:01 Labs: Short CBC 02/13/17 Range/Units 01:01 WBC 1.8 L (4.3-11.1) K/mcL Hgb 9.0 L D (11.5-15.4) g/dL Hct 28.3 L (35.3-44.9) % Plt Count 231 (140-400) K/mcL BMP 02/13/17 01:01 Sodium 136 Potassium 3.5 D Chloride 106 Carbon Dioxide 21 BUN 8 Creatinine 0.64 Glucose 87 Calcium 9.9 - ABG Interpretation ABG results: PT/INR, D-dimer PT 11.4 Seconds (9.4-12.1) 02/12/17 16:48 - Impressions Impressions Cervical Spine CT 02/13/17 08:00 IMPRESSION: 1. 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 Multilevel significant neural foraminal stenosis. 2. Grade 1 spondylolisthesis of C2 through C4. This is likely degenerative nature. 3. No acute fracture. D/ / 02/13/2017 08:31:32 Humberto Flor MD / tsering Interpreting Provider: Humberto Flor MD Shoulder CT 02/13/17 08:00 IMPRESSION: Degenerative cystic changes in the humeral head at the rotator cuff attachment site, suggesting chronic rotator cuff tendinosis. No evidence of acute fracture or dislocation of the right shoulder. No evidence of joint effusion. Mild chondrocalcinosis as well as mild glenohumeral joint osteoarthritis. D/ 02/13/2017 09:11:26 Laci Emaneul MD / earbritney Interpreting Provider: Laci Emanuel MD Consult Discharge Plan - Plan Referrals: Philippe Scott Jr, MD [Primary Care Provider] -
[2017-02-13] MEDS: Magnesium Oxide 400 MG TABLET PO SCH (17:38)
[2017-02-13] MEDS: Sucralfate 1 GM TABLET PO SCH (17:38)
[2017-02-13] MEDS: amLODIPine 5 MG TABLET PO SCH (17:38)
[2017-02-13] MEDS: *HR* OxyCODONE Immed Rel 5 MG TABLET PO PRN (18:22)
[2017-02-14] MEDS: Insulin LISPRO 300 UNITS/3 ML VIAL SQ SCH ×4 (00:24→18:00)
[2017-02-14] MEDS: 0.9 % Sodium Chloride 1,000 ML IVC SCH ×2 (04:24→16:51)
[2017-02-14 05:27] LABS: Hematocrit 27.4 % (35.3-44.9); Hemoglobin 9.1 g/dL (11.5-15.4); Lymphocytes # 0.9 K/mcL (0.6-4.6); Mean Corpuscular HGB Conc 33.2 g/dL (31.6-35.5); Mean Corpuscular Hemoglobin 29.8 pg (28.0-33.3); Mean Corpuscular Volume 89.8 fL (83.0-100.0); Mean Platelet Volume 10.5 fL (9.4-12.4); Platelet Count 232 K/mcL (140-400); Red Blood Count 3.05 M/mcL (3.82-4.97); Red Cell Distribution Width 17.1 % (11.5-14.5)
[2017-02-14 05:43] LABS: BUN/Creatinine Ratio 10 (6-26); Blood Urea Nitrogen 7 mg/dL (7-20); C-Reactive Protein 134 mg/L (Less than 5); Calcium 9.1 mg/dL (8.6-10.8); Carbon Dioxide 26 mEq/L (19-29); Chloride 104 mEq/L (98-109); Glucose 85 mg/dL (70-99); Osmolality,Calculated 279 (280-300); Potassium 3.4 mEq/L (3.5-4.5); Sodium 136 mEq/L (136-145); eGFR For African Americans > 60 (> 60); eGFR For Non-African Americans > 60 (> 60)
[2017-02-14 06:46] LABS: Basophils # 0.1 K/mcL (0.0-0.2); Eosinophils # 0.2 K/mcL (0.0-0.6); Monocytes # 0.6 K/mcL (0.0-1.3); Neutrophils # 0.5 K/mcL (1.6-8.9); Platelet Estimate Normal (Normal)
[2017-02-14] MEDS: Sucralfate 1 GM TABLET PO SCH ×3 (07:55→16:47)
[2017-02-14] MEDS: amLODIPine 5 MG TABLET PO SCH (07:57)
[2017-02-14] MEDS: Magnesium Oxide 400 MG TABLET PO SCH (07:58)
[2017-02-14] MEDS: Pantoprazole 40 MG VIAL IVP SCH ×2 (08:00→09:22)
[2017-02-14] MEDS: *HR* OxyCODONE Immed Rel 5 MG TABLET PO PRN (08:13)
--- NOTE | 2017-02-14 16:38 | Internal Med Progress Note ---
Date of Encounter: 02/14/17 - Assessment and plan (1) Altered mental status Current Visit: Yes Status: Resolved (2) Hand pain, right Current Visit: Yes Status: Acute (3) Anemia Current Visit: No Status: Chronic Qualifiers: Anemia type: iron deficiency Iron deficiency anemia type: other iron deficiency Qualified Code(s): D50.8 - Other iron deficiency anemias (4) DVT prophylaxis Current Visit: No Status: Acute (5) Hypertension Current Visit: No Status: Chronic Qualifiers: Hypertension type: essential hypertension Qualified Code(s): I10 - Essential (primary) hypertension (6) UTI (urinary tract infection) Current Visit: Yes Status: Acute (7) Generalized weakness Current Visit: Yes Status: Acute (8) Toxic metabolic encephalopathy Current Visit: Yes Status: Resolved (9) Complex regional pain syndrome of right upper extremity Current Visit: Yes Status: Chronic Qualifiers: Complex regional pain syndrome type: type I Qualified Code(s): G90.511 - Complex regional pain syndrome I of right upper limb (10) Colostomy in place Current Visit: Yes Status: Chronic (11) Type 2 diabetes mellitus Current Visit: Yes Status: Chronic Qualifiers: Diabetes mellitus complication status: with unspecified complications Diabetes mellitus intermediate accountant insulin use: without fci use Qualified Code( s): E11.8 - Type 2 diabetes mellitus with unspecified complications (12) Chronic neutropenia Current Visit: Yes Status: Chronic - Subjective Interval history: Patient seen and examined. On examination, patient is sitting upright in bed conversing with her . Patient currently denies pain and states she only has pain in her right hand whenever it is moved. She denies shortness of breath. She states she is starting to get her appetite back stating he had been decreased since Sunday. - Constitutional Vitals: Temp Pulse Resp BP Pulse Ox 99.0 F 106 16 158/60 91 02/14/17 14:33 02/14/17 14:33 02/14/17 14:33 02/14/17 14:33 02/14/17 14:33 General appearance: Present: A&O X 1, mild distress, obese. Absent: cooperative , answers questions appropriately Internal Medicine: Result - Labs CBC & Chem 7: 02/14/17 04:50 02/14/17 04:50 Labs: Short CBC 02/14/17 Range/Units 04:50 WBC 2.3 L (4.3-11.1) K/mcL Hgb 9.1 L (11.5-15.4) g/dL Hct 27.4 L (35.3-44.9) % Plt Count 232 (140-400) K/mcL Neutrophils # 0.5 L (1.6-8.9) K/mcL BMP 02/14/17 04:50 Sodium 136 Potassium 3.4 L Chloride 104 Carbon Dioxide 26 BUN 7 Creatinine 0.68 Glucose 85 Calcium 9.1 - ABG Interpretation ABG results: PT/INR, D-dimer PT 11.4 Seconds (9.4-12.1) 02/12/17 16:48 Consult Discharge Plan - Plan Referrals: Philippe Scott Jr, MD [Primary Care Provider] -
--- NOTE | 2017-02-14 16:41 | Discharge Summary ---
Date of Encounter: 02/16/17 Time of Encounter: 10:00 - Discharge Diagnosis (1) Altered mental status Priority: Primary Status: Acute Comments: Patient has been alert and oriented 3 during this admission but the first few days, she was listless and pale and was not eating very well. She returned to her alert and talkative baseline prior to discharge. Of note, tox screen was positive for opiates. She is not listed as being on any opiates at home. OARRS report negative for controlled substance prescriptions but she may have received them at the group home. (2) Hand pain, right Priority: Primary Status: Acute Comments: appears consistent with RA flare. Elevated RF. Elevated inflammatory markers. Plain films negative. Erythema and edema subsided prior to discharge and she was able to use both hands normally. Follow-up outpatient. (3) Anemia Priority: Secondary Status: Chronic Comments: Remained consistent with her baseline, followup outpatient Qualifiers: Anemia type: iron deficiency Iron deficiency anemia type: other iron deficiency Qualified Code(s): D50.8 - Other iron deficiency anemias (4) DVT prophylaxis Priority: Primary Status: Acute Comments: IPC's ordered. Pharmacologic prophylaxis contraindicated secondary to anemia (5) Hypertension Priority: Secondary Status: Chronic Comments: relatively well controlled on her home medications of metoprolol, amlodipine. followup outpatient Qualifiers: Hypertension type: essential hypertension Qualified Code(s): I10 - Essential (primary) hypertension (6) UTI (urinary tract infection) Priority: Primary Status: Acute Comments: Patient her state that she started to have confusion and dysuria while down in [place] last week she was seen at a local ER and was started on Levaquin and discharged home. Her states that the confusion only worsened. She was treated with ceftriaxone while admitted for 5 doses so her treatment is completed. Urine culture negative however suspect a possible false negative. No indication for antibiotics upon discharge Qualifiers: Urinary tract infection type: acute cystitis Hematuria presence: with hematuria Qualified Code(s): N30.01 - Acute cystitis with hematuria (7) Generalized weakness Priority: Primary Status: Acute Comments: Seen and evaluated by occupational and physical therapy both of whom recommended ECF placement. [facility] (8) Toxic metabolic encephalopathy Priority: Primary Status: Resolved (9) Complex regional pain syndrome of right upper extremity Priority: Secondary Status: Chronic Qualifiers: Complex regional pain syndrome type: type I Qualified Code(s): G90.511 - Complex regional pain syndrome I of right upper limb (10) Colostomy in place Priority: Secondary Status: Chronic (11) Type 2 diabetes mellitus Priority: Secondary Status: Chronic Comments: Controlled with an A1c of 6.0%. Followup outpatient. Qualifiers: Diabetes mellitus complication status: with unspecified complications Diabetes mellitus chcf insulin use: without intermediate project manager use Qualified Code( s): E11.8 - Type 2 diabetes mellitus with unspecified complications (12) Chronic neutropenia Priority: Secondary Status: Chronic Comments: Oncology brought onbaord as her WBC dropped to 1.0. She was given Neupogen with remarkable change in her CBC. Followup outpatient with Oncology - Discharge Medications Prescriptions: OxyCODONE Immed Rel [Roxicodone 5 MG] 5 mg PO Q4HR PRN #20 tablet PRN Reason: Pain Magnesium Oxide [Mag-Ox] 400 mg PO QAM #30 tablet PredniSONE 40 mg PO DAILY #10 tablet Home Medications: Glimepiride [Amaryl] 4 mg PO QAM 09/22/15 [History] Metformin [Glucophage] 1,000 mg PO BID 09/22/15 [History] Metoprolol [Lopressor] 25 mg PO BID 09/22/15 [History] Omeprazole [PriLOSEC] 20 mg PO QAM 09/22/15 [History] Amlodipine Besylate 10 mg PO DAILY 03/22/16 [History] Potassium Chloride [K-Tab ER] 20 meq PO QPM 03/22/16 [History] Calcium Citrate 400 mg PO TID 01/17/17 [History] Cholecalciferol (D-3) [Vitamin D] 2,000 unit PO DAILY 01/17/17 [History] Docusate [Colace] 100 mg PO BID 01/17/17 [History] Metoclopramide HCl 5 mg PO TID 01/17/17 [History] Sennosides [Senna] 8.6 mg PO BID 01/17/17 [History] Sucralfate [Carafate] 1 gm PO TIDAC 01/17/17 [History] Ferrous Sulfate 325 mg PO DAILY@0800 #30 tablet 01/20/17 [Rx] Ascorbate Calcium/Bioflavonoid [Gabriela-C 500 mg Tablet] 1 each PO DAILY 02/12/17 [History] Multivitamin [Multi-Day Vitamins] 1 each PO DAILY 02/12/17 [History] Nut.tx.gluc.intoler,Lac-Fr,Soy [Glucerna 1.5 Vicente] 237 ml PO BID 02/12/17 [ History] Magnesium Oxide [Mag-Ox] 400 mg PO QAM #30 tablet 02/16/17 [Rx] OxyCODONE Immed Rel [Roxicodone 5 MG] 5 mg PO Q4HR PRN #20 tablet 02/16/17 [Rx] PredniSONE 40 mg PO DAILY #10 tablet 02/16/17 [Rx] Allergies/Adverse Reactions: Allergies RODGER Inhibitors Adverse Reaction (Verified 01/17/17 13:54) See Comments UNSURE ampicillin Adverse Reaction (Verified 01/17/17 13:54) See Comments lisinopril Adverse Reaction (Verified 01/17/17 13:54) See Comments Tetracycline Adverse Reaction (Verified 01/17/17 13:54) See Comments Date of admission: 02/13/17 16:05 Primary care physician: Philippe Scott Jr, MD Consults: 02/12/17 23:49 Consult to Occupational Therapy [CONS] Routine Comment: Evaluate, develop and implement POC Consult to Physical Therapy [CONS] Routine Comment: Evaluate, develop and implement POC 02/13/17 07:46 Consult to Speech Therapy [CONS] Routine Comment: Evaluate, develop and implement POC Reason for Consult: failed nursing dysphasia Call Completed: Yes 02/13/17 10:47 Consult to Invasive Line Access Team [CONS] Routine Reason for Consult: Limited access, compromised extremity Line Type: EPIV 02/13/17 17:08 Consult to Inside Sales Specialist [CONS] Routine Reason for SW Consult: Pt to return to [facility] for rehab 02/15/17 09:23 Consult to Oncology [CONS] Routine Consulting Provider: On[facility] Reason for Consult: neutropenic with decreased neutrophils and lymphocytes; has been given Neupogen in the past. Please eval and advise Time Notified: 09:24 Call Completed: Yes Discharging clinician: Aissatou Ordonez Anticipated date of discharge: 02/16/17 (sending back to [facility]) - Patient Status Disposition: Transfer Inpatient Rehab Fac Condition: Fair Functional capacity at discharge: uses cane/walker Overall status at discharge: patient is back to baseline - Discharge Instructions Follow Up With: Philippe Scott Jr, MD [Primary Care Provider] - Oncology [facility] [Provider Group] [facility] [Provider Group] Additional Instructions: Follow-up with primary care provider within one to 2 weeks. Follow-up with oncology as needed. Follow-up with rheumatology. - Diet and Activity Activity: as per physical therapy, increase activity as tolerated Diet: diabetic diet, low salt diet Hospital course: Ms. Hardy is a 76 year old female with past medical history of diabetes, hypertension, GERD, rheumatoid arthritis, iron deficiency anemia, chronic neutropenia, permanent colostomy status post partial colectomy for diverticular disease, former tobacco abuse. Patient presented to the emergency department chief complaint altered mental status. Patient was at the cancer center on the morning of presentation when she received her second dose of IV iron, the provider noticed that the patient was confused and disoriented and also complained of right arm pain. Of note, patient was recently hospitalized in January with a femur fracture following a fall status post surgery at [facility]. She was at [facility] inpatient rehabilitation when staff noticed that she was able to follow commands but she would not engage in conversation which is different from her baseline. She also endorses nausea and vomiting with decreased by mouth intake. Staff and also reported that her personality changed. Workup in the emergency department unremarkable. Cervical spine CT unremarkable for acute processes. Shoulder CT unremarkable for acute processes. Chest x-ray negative. Head CT negative. Patient was admitted to the hospitalist service for further evaluation management. Ultrasound of right upper extremity negative for DVT. Plain films of her right hand unremarkable. Rheumatoid factor elevated the patient was treated for acute RA flareup. Uric acid levels were normal. Regarding her chronic leukopenia, her white count dropped to 1 with neutrophils 0.4 and lymphocytes 0.3. In review of her chart, she had similar lab values in 2015 and she was treated with Neupogen. Oncology Dr. Yung and JUDY Mejia will brought onboard the patient was given Neupogen drastic change in her white count overnight. White count 10 on day of discharge with neutrophil 8.7 and lymphocytes 0.6. Spoke to oncology who felt no further dosing of Neupogen were indicated upon disposition. She was admitted and observed over the course of 5 days and during the first 3 days, she was able to answer questions appropriately however she was listless and would not engage in conversation. She also would not eat very much. The final 2 days of her admission, patient became much more alert and interactive and was able to tolerate a regular diet. The erythema and edema to her right hand subsided as she was treated with methylprednisolone while admitted. Regarding her urinary tract infection, she failed outpatient therapy with Levaquin. She was treated with ceftriaxone while admitted and completed 5 IV doses. Urine culture was negative, no antibiotics indicated upon discharge. Her magnesium levels were also noted to be markedly low upon presentation of 0.8. She was treated with IV and oral magnesium while admitted and her home dose of magnesium was increased. Regarding her generalized weakness, occupational and physical therapy both of whom recommended ECF placement and the patient was sent back to [facility]. She was discharged back to [facility] in stable condition with close outpatient follow-up recommended. ITS Impressions Cervical Spine CT 02/13/17 08:00 IMPRESSION: 1. 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 Multilevel significant neural foraminal stenosis. 2. Grade 1 spondylolisthesis of C2 through C4. This is likely degenerative nature. 3. No acute fracture. D/ / 02/13/2017 08:31:32 Humberto Flor MD / tsering Interpreting Provider: Humberto Flor MD Shoulder CT 02/13/17 08:00 IMPRESSION: Degenerative cystic changes in the humeral head at the rotator cuff attachment site, suggesting chronic rotator cuff tendinosis. No evidence of acute fracture or dislocation of the right shoulder. No evidence f joint effusion. Mild chondrocalcinosis as well as mild glenohumeral joint osteoarthritis. D/ 02/13/2017 09:11:26 Laci Emanuel MD / tsering Interpreting Provider: Laci Emanuel MD Hand X-Ray 02/13/17 15:39 IMPRESSION: Chronic changes as detailed. No acute process identified. D/ / Mike Amezcua MD / Mike Amezcua MD Interpreting Provider: Mike Amezcua MD - Time Spent with Patient Total time spent providing and/or coordinating discharge services: - Constitutional Vitals: Temp Pulse Resp BP Pulse Ox 99.0 F 106 16 158/60 91 02/14/17 14:33 02/14/17 14:33 02/14/17 14:33 02/14/17 14:33 02/14/17 14:33 General appearance: Present: cooperative, A&O X 3, pleasant, no acute distress, answers questions appropriately - Head Head exam: Present: atraumatic, normocephalic - Eye Eye exam: Present: PERRL, conjuntiva pink, sclera anicteric Pupils: Present: PERRL - Neck Neck exam general surgery: Present: supple, trachea midline. Absent: lymphadenopathy - Respiratory Respiratory exam: Present: CTAB. Absent: accessory muscle use, rales, respiratory distress, rhonchi, wheezes - Cardiovascular Cardiovascular exam: Present: RRR, +S1, +S2. Absent: diastolic murmur, gallop, rubs, systolic murmur - GI/Abdominal GI/Abdominal exam: Present: normal bowel sounds, soft, no peritoneal signs. Absent: distended, tenderness - Extremities Exam Extremities exam: Present: warm, radial pulses palpable and symetrical. Absent : calf tenderness, cyanotic, pedal edema - Neurological Exam Neurological exam: Present: alert, CN II-XII intact, oriented X3, no focal deficits, strengths equal and symetr throughout. Absent: pronater drift, facial droop, speech deficit - Skin Skin exam: Present: dry, intact, normal color, warm
--- NOTE | 2017-02-14 16:47 | Internal Med Progress Note ---
Date of Encounter: 02/14/17 Time of Encounter: 09:30 (1230 and 1600) - Assessment and plan (1) Altered mental status Current Visit: Yes Status: Resolved Assessment and plan: Patient alert and oriented 3 during my interaction with her again today. She was a bit groggy this am, but was able to answer all questions appropriately. Of note, tox screen is positive for opiates. She is not listed as being on any opiates at home. OARRS report negative for controlled substance prescriptions although she has been at pending sale to [facility] for the past week and may have gotten control substances while admitted there. (2) Hand pain, right Current Visit: Yes Status: Acute Assessment and plan: Unclear etiology. Plain films unremarkable. Inflammatory markers are rising. Erythema and edema have lessened however area remains hot to touch. Hand remains neurovascularly intact. 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 We will continue ceftriaxone and monitor. No history of gout, will obtain uric acid levels. Could be an exacerbation of her RA. Initial plan was to discharge her back to pending sale to [facility] today however concern for possible early SIRS/sepsis given that she is now tachycardic and has had low-grade fevers up to 99.7 since admission. She continues to be leukopenic which is chronic for her and may be masking other symptoms/signs of sepsis. Lactic acid normal. We will observe her overnight and if stable, we will likely discharge to pending sale to [facility] tomorrow pending clinical outcomes. Patient did have an IV superiorly located in her right forearm however that IV did not infiltrate. ITS Impressions Hand X-Ray 02/13/17 15:39 IMPRESSION: Chronic changes as detailed. No acute process identified. D/ / Mike Amezcua MD / Mike Amezcua MD Interpreting Provider: Mike Amezcua MD (3) Rheumatoid arthritis flare Current Visit: Yes Status: Suspected Assessment and plan: Possible, also obtaining uric acid levels for possible gout. Will add methylprednisolone. (4) Anemia Current Visit: No Status: Chronic Assessment and plan: Currently consistent with her baseline, we will continue to trend Qualifiers: Anemia type: iron deficiency Iron deficiency anemia type: other iron deficiency Qualified Code(s): D50.8 - Other iron deficiency anemias (5) DVT prophylaxis Current Visit: No Status: Acute Assessment and plan: IPC's ordered. Pharmacologic prophylaxis contraindicated secondary to anemia (6) Hypertension Current Visit: No Status: Chronic Assessment and plan: Borderline hypertensive at times however the patient continues to be in pain at times. We will continue to trend and treat her pain. Her home medications of metoprolol, amlodipine have been continued Qualifiers: Hypertension type: essential hypertension Qualified Code(s): I10 - Essential (primary) hypertension (7) UTI (urinary tract infection) Current Visit: Yes Status: Acute Assessment and plan: Patient her state that she started to have confusion and dysuria while down in [place] last week she was seen at a local ER and was started on Levaquin and discharged home. Her states that the confusion only worsened. We will continue ceftriaxone. Urine culture negative however suspect a possible false negative. We will also continue ceftriaxone for possible septic joint. (8) Generalized weakness Current Visit: Yes Status: Acute Assessment and plan: OT and PT consultations have both recommended ECF placement for inpatient rehabilitation. Her states that she has been at pending sale to [facility] for approximately one week after subsequent fall and leg fracture. hotel services sales representative on board. Plan is to send her back to pending sale to [facility] when clinically appropriate. (9) Toxic metabolic encephalopathy Current Visit: Yes Status: Resolved (10) Complex regional pain syndrome of right upper extremity Current Visit: Yes Status: Chronic Assessment and plan: Plain films of the right hand unremarkable. Shoulder CT of right shoulder unremarkable for acute processes. CT of cervical spine also unremarkable for acute processes. See prior note for right hand pain. ITS Impressions Cervical Spine CT 02/13/17 08:00 IMPRESSION: 1. 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 Multilevel significant neural foraminal stenosis. 2. Grade 1 spondylolisthesis of C2 through C4. This is likely degenerative nature. 3. No acute fracture. D/ / 02/13/2017 08:31:32 Humberto Flor MD / tsering Interpreting Provider: Humberto Flor MD Shoulder CT 02/13/17 08:00 IMPRESSION: Degenerative cystic changes in the humeral head at the rotator cuff attachment site, suggesting chronic rotator cuff tendinosis. No evidence of acute fracture or dislocation of the right shoulder. No evidence f joint effusion. Mild chondrocalcinosis as well as mild glenohumeral joint osteoarthritis. D/ / 02/13/2017 09:11:26 Laci Emanuel MD / earnold Interpreting Provider: Laci Emanuel MD Hand X-Ray 02/13/17 15:39 IMPRESSION: Chronic changes as detailed. No acute process identified. D/ / Mike Amezcua MD / Mike Amezcua MD Interpreting Provider: Mike Amezcua MD Qualifiers: Complex regional pain syndrome type: type I Qualified Code(s): G90.511 - Complex regional pain syndrome I of right upper limb (11) Colostomy in place Current Visit: Yes Status: Chronic (12) Type 2 diabetes mellitus Current Visit: Yes Status: Chronic Assessment and plan: Controlled with an A1c of 6.0%. Continue sliding scale while admitted. Qualifiers: Diabetes mellitus complication status: with unspecified complications Diabetes mellitus terminal operator insulin use: without fpc use Qualified Code( s): E11.8 - Type 2 diabetes mellitus with unspecified complications (13) Chronic neutropenia Current Visit: Yes Status: Chronic Assessment and plan: Chronic, follows with oncology Dr. Yung. No signs of acute sepsis however trending closely (14) Hypomagnesemia Current Visit: Yes Status: Acute Assessment and plan: Repleted with both IV and by mouth supplementation, will recheck in the morning. - Subjective Interval history: Patient seen and examined earlier this morning, early afternoon, then again later in the afternoon. Patient alert and oriented 3 and able to answer questions every time. During the morning exam, she was a bit drowsy but she was still oriented 3. is at the bedside during the early afternoon evaluation and he was concerned that the patient was not eating. She ate most of her breakfast but did not appear to eat much of her lunch. Initially in the morning, patient was able to squeeze my hands bilaterally but in early afternoon , she was unable to squeeze with her right hand without severe pain which is new. Patient complaining of "pain all over." - Constitutional Vitals: Temp Pulse Resp BP Pulse Ox 99.0 F 106 16 158/60 91 02/14/17 14:33 02/14/17 14:33 02/14/17 14:33 02/14/17 14:33 02/14/17 14:33 General appearance: Present: cooperative, A&O X 3, pleasant, no acute distress, answers questions appropriately - Head Head exam: Present: atraumatic, normocephalic - Eye Eye exam: Present: PERRL, conjuntiva pink, sclera anicteric Pupils: Present: PERRL - Neck Neck exam general surgery: Present: supple, trachea midline. Absent: lymphadenopathy - Respiratory Respiratory exam: Present: CTAB. Absent: accessory muscle use, rales, respiratory distress, rhonchi, wheezes - Cardiovascular Cardiovascular exam: Present: RRR, +S1, +S2. Absent: diastolic murmur, gallop, rubs, systolic murmur - GI/Abdominal GI/Abdominal exam: Present: normal bowel sounds, soft, no peritoneal signs. Absent: distended, tenderness Additional comments: colostomy bag - Extremities Exam Extremities exam: Present: warm, radial pulses palpable and symetrical. Absent : calf tenderness, cyanotic, pedal edema - Neurological Exam Neurological exam: Present: alert, CN II-XII intact, oriented X3, no focal deficits. Absent: strengths equal and symetr throughout (right hand limited by pain), pronater drift, facial droop, speech deficit - Skin Skin exam: Present: dry, intact, pallor, warm Internal Medicine: Result - Labs CBC & Chem 7: 02/14/17 04:50 02/14/17 04:50 Labs: Short CBC 02/14/17 Range/Units 04:50 WBC 2.3 L (4.3-11.1) K/mcL Hgb 9.1 L (11.5-15.4) g/dL Hct 27.4 L (35.3-44.9) % Plt Count 232 (140-400) K/mcL Neutrophils # 0.5 L (1.6-8.9) K/mcL BMP 02/14/17 04:50 Sodium 136 Potassium 3.4 L Chloride 104 Carbon Dioxide 26 BUN 7 Creatinine 0.68 Glucose 85 Calcium 9.1 - ABG Interpretation ABG results: PT/INR, D-dimer PT 11.4 Seconds (9.4-12.1) 02/12/17 16:48 Consult Discharge Plan - Plan Referrals: Philippe Scott Jr, MD [Primary Care Provider] -
[2017-02-14] MEDS: MethylPREDNISolone 40 MG/ML VIAL IVP SCH (18:08)
[2017-02-15] MEDS: MethylPREDNISolone 40 MG/ML VIAL IVP SCH ×4 (00:33→18:34)
[2017-02-15] MEDS: Insulin LISPRO 300 UNITS/3 ML VIAL SQ SCH ×4 (00:34→18:34)
[2017-02-15 05:50] LABS: Hemoglobin 9.8 g/dL (11.5-15.4)
[2017-02-15 05:51] LABS: Hematocrit 30.6 % (35.3-44.9); Lymphocytes # 0.3 K/mcL (0.6-4.6); Mean Corpuscular Hemoglobin 28.7 pg (28.0-33.3); Mean Corpuscular Volume 89.5 fL (83.0-100.0); Mean Platelet Volume 10.6 fL (9.4-12.4); Platelet Count 237 K/mcL (140-400); Red Blood Count 3.42 M/mcL (3.82-4.97); Red Cell Distribution Width 16.2 % (11.5-14.5)
[2017-02-15 06:03] LABS: BUN/Creatinine Ratio 14 (6-26); Blood Urea Nitrogen 10 mg/dL (7-20); Calcium 9.6 mg/dL (8.6-10.8); Carbon Dioxide 25 mEq/L (19-29); Chloride 102 mEq/L (98-109); Glucose 170 mg/dL (70-99); Magnesium 1.2 mg/dL (1.6-2.6); Osmolality,Calculated 281 (280-300); Sodium 134 mEq/L (136-145); eGFR For African Americans > 60 (> 60); eGFR For Non-African Americans > 60 (> 60)
[2017-02-15 06:07] LABS: C-Reactive Protein 248 mg/L (Less than 5)
[2017-02-15] MEDS: Pantoprazole 40 MG VIAL IVP SCH (08:12)
[2017-02-15] MEDS: Sucralfate 1 GM TABLET PO SCH ×3 (08:13→15:48)
[2017-02-15] MEDS: Magnesium Oxide 400 MG TABLET PO SCH (08:13)
[2017-02-15] MEDS: amLODIPine 5 MG TABLET PO SCH (08:14)
[2017-02-15 08:26] LABS: Monocytes # 0.2 K/mcL (0.0-1.3); Neutrophils # 0.4 K/mcL (1.6-8.9)
[2017-02-15 08:27] LABS: Platelet Estimate Normal (Normal)
[2017-02-15] MEDS: 0.9 % Sodium Chloride 1,000 ML IVC SCH (13:00)
--- NOTE | 2017-02-15 15:18 | Oncology Inp Consult Note ---
<Noah Mejia Emerson Lee - Last Filed: 02/15/17 17:16> Date of Encounter: 02/15/17 Time of Encounter: 16:35 Assessment and Plan (1) Chronic neutropenia Status: Chronic Assessment and plan: This is a 76 year old patient of Dr Gavi Yung with a history of chronic neutropenia that dates back to 2000. Her neutrophil counts normally between 700-900. She has a recent history of acute anemia. Hemoglobin dropped to 7 range January 2017. She had a right hip fracture after falling near [place]. She was on her way back from [place] to [place]. She was treated at [facility] and had surgical repair of the right hip and she is a resident of [facility]. She received 2 units of packed RBC on 01/22/2017. She had microscopic hematuria neurology consult obtained. CT chest abdomen and pelvis as an inpatient was negative on 01/19/2017 She received a dose of IV injectafer 750 mg last week, then returned on 02/13/17 to cancer center for 2nd dose. Prior to start of IV iron, patient in an altered mental state compared to the week before that is not typical for the patient. She had severe right hand pain as well. We sent her to [facility] for evaluation. The work up has been fairly benign. While inpatient, her ANC has dropped to 0.2 with WBC of 1.0 and ANC 0.4 today. Patient responds well to neupogen. I will order neupogen 300mcg SQ today, and for the next 2 days, hold if ANC>10,000. It will take 24 hours for first dose to get her near her typical range at baseline is 0.7-0.9 for ANC. So, if we can get her to that baseline, OK to discharge. OK to discharge when medically stable, and ANC is in a more stable baseline for her at 0.7-0.9.. Dr Yung will assess patient as well, and he agrees with above plan. - Data of Consult Patient: known to practice within the last 3 years Consult date: 02/15/17 Requesting Physician: Aissatou Collier Primary Care Provider: Philippe Scott Jr, MD - Consult Narrative Reason for consult: neutropenia History of present illness: Ms. Hardy is a 76 year old female well known to [facility] with history of chronic neutropenia. Chronic neutropenia began in 2000. Continue to follow neutrophils from 200- 1500. Rheumatoid arthritis could be contributing to some of She does respond to Neupogen. She had a few bone marrow biopsies last one 03/12/2001 showed no dysplasia or leukemia. No evidence of cyclical neutropenia. She does have mild fluctuations in the neutrophils. And monocytes are mostly stable around 500. She has a history of acute anemia. Hemoglobin dropped to 7 range January 2017. She had a right hip fracture after falling near [place]. She was on her way back from [place] to [place]. She was treated at [facility] and had surgical repair of the right hip and she is a resident of [facility] She received 2 units of packed RBC on 01/22/2017. She had microscopic hematuria neurology consult obtained. CT chest abdomen and pelvis as an inpatient was negative on 01/19/2017 Medical problems 1. 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 Hematuria. She has a 2.3 cm stone in the right renal pelvis 3. Pneumonia July 2014. [address] chest on 08-04-14 showed mild air spaces disease and she improved with IV antibiotics. 4. She had a stone possibly causing hydronephrosis. She has to be hospitalized at [facility] have to have open surgery early 2014. 4. Type 2 diabetes mellitus. Well-controlled . Currently on metformin. She stakes occasional Lantus 5. Right renal stone disease post surgical extraction of stone in [place] around January 2015 6. Type 2 diabetes mellitus. Well-controlled . Currently on metformin. She stakes occasional Lantus Lumbar spine severe facet arthropathy with slight degenerative spondylolisthesis of the L3 on L4 and to a lesser degree L4 on L5. OP Advised to take calcium and vitamin D supplement. She also likes cheese Patient seen on 02/13/17 for 2nd dose of an iron infusion at [facility]. The patient had severe right hand pain, and altered mental status, a vast change from the few days prior when she received dose #1 of iron. Patient lives in an ECF Patient was sent to [facility] for evaluation, and admitted to unit 3B for work up and treatment. Hematology consulted 02/15/17 due to profound neutropenia. Past Med Surg Social Fam HX - Past Medical History Medical history: arthritis, diabetes, GERD, hypertension, kidney stones, osteoporosis, RA, renal disease, valvular heart disease, other (Iron deficiency anemia. Diverticulosis coli. Chronic mass, tail of pancreas able at CT abdomen 2013. DDD/DJD of spine.) Psychiatric history: anxiety, depression, other - Past Surgical History Surgical History: cholecystectomy, colectomy, colostomy, herniorrhaphy, knee replacement, ureteral stent, other - Social History Smoking Status: Former smoker Smokeless Tobacco Status: No Alcohol use: none Drug use: none - Family History Son Name: Candido Hardy Age: 53 Living Status: Still Living Hx Family Cardiac Disorders: No Hx Family Respiratory Disorders: Yes Hx Family Cancer: No Hx Family GI Disorders: No Hx Family Genitourinary Disorders: No Hx Family Endocrine Disorder: No Hx Family Musculoskeletal Disorders: No Hx Family Neuromuscular Disorders: No Hx Family Neurologic Disorders: No Hx Family HEENT Disorders: No Hx Family Autoimmune Disorders: Yes (Autoimmune dx, unable to remember name) Hx Family Reproductive Disorders: No Hx Family Psychosocial Disorders: No Hx Family Medical Disorders: No Medications and Allergies Glimepiride [Amaryl] 4 mg PO QAM 09/22/15 [History] Metformin [Glucophage] 1,000 mg PO BID 09/22/15 [History] Metoprolol [Lopressor] 25 mg PO BID 09/22/15 [History] Omeprazole [PriLOSEC] 20 mg PO QAM 09/22/15 [History] Amlodipine Besylate 10 mg PO DAILY 03/22/16 [History] Potassium Chloride [K-Tab ER] 20 meq PO QPM 03/22/16 [History] Calcium Citrate 400 mg PO TID 01/17/17 [History] Cholecalciferol (D-3) [Vitamin D] 2,000 unit PO DAILY 01/17/17 [History] Docusate [Colace] 100 mg PO BID 01/17/17 [History] Magnesium 200 mg PO QAM 01/17/17 [History] Metoclopramide HCl 5 mg PO TID 01/17/17 [History] Sennosides [Senna] 8.6 mg PO BID 01/17/17 [History] Sucralfate [Carafate] 1 gm PO TIDAC 01/17/17 [History] Ferrous Sulfate 325 mg PO DAILY@0800 #30 tablet 01/20/17 [Rx] OxyCODONE Immed Rel [Roxicodone 5 MG] 5 mg PO Q4HR PRN #20 tablet 01/20/17 [Rx] Ascorbate Calcium/Bioflavonoid [Gabriela-C 500 mg Tablet] 1 each PO DAILY 02/12/17 [History] Multivitamin [Multi-Day Vitamins] 1 each PO DAILY 02/12/17 [History] Nut.tx.gluc.intoler,Lac-Fr,Soy [Glucerna 1.5 Vicente] 237 ml PO BID 02/12/17 [ History] Allergies RODGER Inhibitors Adverse Reaction (Verified 01/17/17 13:54) See Comments UNSURE ampicillin Adverse Reaction (Verified 01/17/17 13:54) See Comments lisinopril Adverse Reaction (Verified 01/17/17 13:54) See Comments Tetracycline Adverse Reaction (Verified 01/17/17 13:54) See Comments All systems: reviewed and no additional remarkable complaints except as stated Musculoskeletal: Present: stiffness (right wrist) Oncology - Exam - Constitutional Vitals: Temp Pulse Resp BP Pulse Ox 97.5 F L 65 20 151/68 94 02/15/17 10:52 02/15/17 10:52 02/15/17 10:52 02/15/17 10:52 02/15/17 10:52 General appearance: cooperative, no acute distress - Head Head exam: Present: atraumatic, normal inspection - Eye Eye exam: Present: normal appearance, PERRL - ENT ENT exam: Present: mucous membranes moist - Neck Neck exam: Present: full ROM, normal inspection - Expanded Upper Extremity Exam Elbow exam: Present: normal inspection Forearm wrist exam: Present: tenderness Hand wrist exam: Present: tenderness Oncology - Results - Labs Labs: Short CBC 02/15/17 Range/Units 05:00 WBC 1.0 L* D (4.3-11.1) K/mcL Hgb 9.8 L (11.5-15.4) g/dL Hct 30.6 L (35.3-44.9) % Plt Count 237 (140-400) K/mcL Neutrophils # 0.4 L (1.6-8.9) K/mcL BMP 02/15/17 05:00 Sodium 134 L Potassium 4.0 Chloride 102 Carbon Dioxide 25 BUN 10 Creatinine 0.69 Glucose 170 H Calcium 9.6 Consult Discharge Plan - Plan Referrals: Philippe Scott Jr, MD [Primary Care Provider] - <Gavi Yung S - Last Filed: 02/16/17 12:25> Date of Encounter: 02/16/17 - Data of Consult Requesting Physician: Aissatou Collier Primary Care Provider: Philippe Scott Jr, MD - Consult Narrative History of present illness: Ms. Hardy is a 76 year old female Oncology - Exam - Constitutional Vitals: Temp Pulse Resp BP Pulse Ox 97.7 F 68 16 166/72 98 02/16/17 11:50 02/16/17 11:50 02/16/17 11:50 02/16/17 11:50 02/16/17 11:50 Oncology - Results - Labs Labs: Short CBC 02/16/17 Range/Units 03:55 WBC 10.6 D (4.3-11.1) K/mcL Hgb 8.8 L (11.5-15.4) g/dL Hct 26.7 L (35.3-44.9) % Plt Count 225 (140-400) K/mcL Neutrophils # 8.7 (1.6-8.9) K/mcL BMP 02/16/17 03:55 Sodium 132 L Potassium 3.7 Chloride 102 Carbon Dioxide 21 BUN 14 Creatinine 0.82 Glucose 267 H Calcium 9.3 - Attending Attestation 1. Chronic neutropenia. Neutrophil count usually respond to Neupogen-type medication Neutrophil count went up from 400 to around 8000 after 1 dose of Neupogen. She does not need any further doses 2. Admitted with altered mental status. Improved with conservative management and hydration Urine analysis negative 3. Anemia after a fall and right hip fracture she received 2 units of packed RBC. One dose of IV injectafer 750 mg on January 2017 B12 folate TSH normal. Current hemoglobin 8.8 and will continue to watch it. Currently she is conscious alert and oriented
--- NOTE | 2017-02-15 19:31 | Internal Med Progress Note ---
Date of Encounter: 02/15/17 Time of Encounter: 16:30 - Assessment and plan (1) Chronic neutropenia Current Visit: Yes Status: Chronic Assessment and plan: Chronic but markedly decreased today. White count 1.0. Neutrophils 0.4, lymphocyte 0.3. In review of her chart, she had similar lab values in 2014 and she was treated with Neupogen. Oncology Dr. Yung and COVER STITCH MACHINE OPERATOR Dayna Mejia have been brought onboard. Plan is to give her Neupogen today and then recheck her lab placed tomorrow and likely transfer her tomorrow to inpatient rehabilitation. No signs of acute sepsis however trending closely (2) Altered mental status Current Visit: Yes Status: Acute Assessment and plan: Patient alert and oriented 3 and is in much better spirits. She is no longer pale. She is laughing and joking and is back to her baseline. Of note, tox screen is positive for opiates. She is not listed as being on any opiates at home. [facility] report negative for controlled substance prescriptions although she has been at [facility] for the past week and may have gotten control substances while admitted there. (3) Hand pain, right Current Visit: Yes Status: Acute Assessment and plan: Edema and erythema to her right hand has lessened greatly overnight. Likely flareup of her RA. 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 Uric acid levels unremarkable. Inflammatory markers are increasing, we will continue to trend. 02/14/17 Unclear etiology. Plain films unremarkable. Inflammatory markers are rising. Erythema and edema have lessened however area remains hot to touch. Hand remains neurovascularly intact. 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 We will continue ceftriaxone and monitor. No history of gout, will obtain uric acid levels. Could be an exacerbation of her RA. Initial plan was to discharge her back to [facility] today however concern for possible early SIRS/sepsis given that she is now tachycardic and has had low-grade fevers up to 99.7 since admission. She continues to be leukopenic which is chronic for her and may be masking other symptoms/signs of sepsis. Lactic acid normal. We will observe her overnight and if stable, we will likely discharge to [facility] tomorrow pending clinical outcomes. Patient did have an IV superiorly located in her right forearm however that IV did not infiltrate. ITS Impressions Hand X-Ray 02/13/17 15:39 IMPRESSION: Chronic changes as detailed. No acute process identified. D/ / Mike Amezcua MD / Mike Amezcua MD Interpreting Provider: Mike Amezcua MD (4) Rheumatoid arthritis flare Current Visit: Yes Status: Suspected Assessment and plan: methylprednisolone started yesterday, will continue. Much improved on examination. (5) Anemia Current Visit: No Status: Chronic Assessment and plan: Currently consistent with her baseline, we will continue to trend Qualifiers: Anemia type: iron deficiency Iron deficiency anemia type: other iron deficiency Qualified Code(s): D50.8 - Other iron deficiency anemias (6) DVT prophylaxis Current Visit: No Status: Acute Assessment and plan: IPC's ordered. Pharmacologic prophylaxis contraindicated secondary to anemia (7) Hypertension Current Visit: No Status: Chronic Assessment and plan: Much better controlled today, we will continue to trend. Her home medications of metoprolol, amlodipine have been continued Qualifiers: Hypertension type: essential hypertension Qualified Code(s): I10 - Essential (primary) hypertension (8) UTI (urinary tract infection) Current Visit: Yes Status: Acute Assessment and plan: Patient her state that she started to have confusion and dysuria while down in [place] last week she was seen at a local ER and was started on Levaquin and discharged home. Her states that the confusion only worsened. We will continue ceftriaxone. Urine culture negative however suspect a possible false negative. We will also continue ceftriaxone for possible septic joint. (9) Generalized weakness Current Visit: Yes Status: Acute Assessment and plan: OT and PT consultations have both recommended ECF placement for inpatient rehabilitation. Her states that she has been at [facility] for approximately one week after subsequent fall and leg fracture. building services supervisor on board. Plan is to send her back to [facility] when clinically appropriate. (10) Toxic metabolic encephalopathy Current Visit: Yes Status: Resolved (11) Complex regional pain syndrome of right upper extremity Current Visit: Yes Status: Chronic Assessment and plan: Plain films of the right hand unremarkable. Shoulder CT of right shoulder unremarkable for acute processes. CT of cervical spine also unremarkable for acute processes. See prior note for right hand pain. ITS Impressions Cervical Spine CT 02/13/17 08:00 IMPRESSION: 1. 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 Multilevel significant neural foraminal stenosis. 2. Grade 1 spondylolisthesis of C2 through C4. This is likely degenerative nature. 3. No acute fracture. D/ / 02/13/2017 08:31:32 Humberto Flor MD / tsering Interpreting Provider: Humberto Flor MD Shoulder CT 02/13/17 08:00 IMPRESSION: Degenerative cystic changes in the humeral head at the rotator cuff attachment site, suggesting chronic rotator cuff tendinosis. No evidence of acute fracture or dislocation of the right shoulder. No evidence f joint effusion. Mild chondrocalcinosis as well as mild glenohumeral joint osteoarthritis. D/ : / 02/13/2017 09:11:26 Laci Emanuel MD / tsering Interpreting Provider: Laci Emanuel MD Hand X-Ray 02/13/17 15:39 IMPRESSION: Chronic changes as detailed. No acute process identified. D/ / Mike Amezcua MD / Mike Amezcua MD Interpreting Provider: Mike Amezcua MD Qualifiers: Complex regional pain syndrome type: type I Qualified Code(s): G90.511 - Complex regional pain syndrome I of right upper limb (12) Colostomy in place Current Visit: Yes Status: Chronic (13) Type 2 diabetes mellitus Current Visit: Yes Status: Chronic Assessment and plan: Controlled with an A1c of 6.0%. Continue sliding scale while admitted. Qualifiers: Diabetes mellitus complication status: with unspecified complications Diabetes mellitus intermediate card tender insulin use: without intermediate card tender use Qualified Code( s): E11.8 - Type 2 diabetes mellitus with unspecified complications (14) Hypomagnesemia Current Visit: Yes Status: Acute Assessment and plan: Repleted with both IV and by mouth supplementation with improvement, will add another IV dose and will recheck in the morning. - Subjective Interval history: Patient seen and examined. On examination, patient has improved dramatically over the last day. She is now alert, no longer pale, she is laughing and joking in stating that she has gotten her appetite back. She states her hands are feeling much better and her overall mood is highly elevated. - Constitutional Vitals: Temp Pulse Resp BP Pulse Ox 97.6 F 82 16 148/63 93 02/15/17 15:36 02/15/17 15:36 02/15/17 15:36 02/15/17 15:36 02/15/17 15:36 General appearance: Present: cooperative, A&O X 3, pleasant, no acute distress, answers questions appropriately - Head Head exam: Present: atraumatic, normocephalic - Eye Eye exam: Present: PERRL, conjuntiva pink, sclera anicteric Pupils: Present: PERRL - Neck Neck exam general surgery: Present: supple, trachea midline. Absent: lymphadenopathy - Respiratory Respiratory exam: Present: CTAB. Absent: accessory muscle use, rales, respiratory distress, rhonchi, wheezes - Cardiovascular Cardiovascular exam: Present: RRR, +S1, +S2. Absent: diastolic murmur, gallop, rubs, systolic murmur - GI/Abdominal GI/Abdominal exam: Present: normal bowel sounds, soft, no peritoneal signs. Absent: distended, tenderness - Extremities Exam Extremities exam: Present: warm, radial pulses palpable and symetrical. Absent : calf tenderness, cyanotic, pedal edema - Expanded Upper Extremities Exam Hand wrist exam: Present: swelling, tenderness Vascular exam: Present: normal capillary refill. Absent: vascular compromise - Neurological Exam Neurological exam: Present: alert, CN II-XII intact, oriented X3, no focal deficits. Absent: pronater drift, facial droop, speech deficit - Skin Skin exam: Present: dry, intact, normal color, warm Internal Medicine: Result - Labs CBC & Chem 7: 02/15/17 05:00 02/15/17 05:00 Labs: Short CBC 02/15/17 Range/Units 05:00 WBC 1.0 L* D (4.3-11.1) K/mcL Hgb 9.8 L (11.5-15.4) g/dL Hct 30.6 L (35.3-44.9) % Plt Count 237 (140-400) K/mcL Neutrophils # 0.4 L (1.6-8.9) K/mcL BMP 02/15/17 05:00 Sodium 134 L Potassium 4.0 Chloride 102 Carbon Dioxide 25 BUN 10 Creatinine 0.69 Glucose 170 H Calcium 9.6 - ABG Interpretation ABG results: PT/INR, D-dimer PT 11.4 Seconds (9.4-12.1) 02/12/17 16:48 Consult Discharge Plan - Plan Referrals: Philippe Scott Jr, MD [Primary Care Provider] -
[2017-02-15] MEDS ORDERED: Magnesium Sulfate 2 GM in D5% in Water 100 ML IVPB ONE (19:35)
[2017-02-16] MEDS: Insulin LISPRO 300 UNITS/3 ML VIAL SQ SCH ×3 (00:06→13:16)
[2017-02-16] MEDS: MethylPREDNISolone 40 MG/ML VIAL IVP SCH ×3 (00:06→13:16)
[2017-02-16 04:11] LABS: Hematocrit 26.7 % (35.3-44.9); Hemoglobin 8.8 g/dL (11.5-15.4); Mean Corpuscular Hemoglobin 29.1 pg (28.0-33.3); Mean Corpuscular Volume 88.4 fL (83.0-100.0); Mean Platelet Volume 10.4 fL (9.4-12.4); Platelet Count 225 K/mcL (140-400); Red Blood Count 3.02 M/mcL (3.82-4.97); Red Cell Distribution Width 16.1 % (11.5-14.5)
[2017-02-16 04:26] LABS: BUN/Creatinine Ratio 17 (6-26); Blood Urea Nitrogen 14 mg/dL (7-20); Calcium 9.3 mg/dL (8.6-10.8); Carbon Dioxide 21 mEq/L (19-29); Chloride 102 mEq/L (98-109); Glucose 267 mg/dL (70-99); Magnesium 1.5 mg/dL (1.6-2.6); Osmolality,Calculated 284 (280-300); Potassium 3.7 mEq/L (3.5-4.5); Sodium 132 mEq/L (136-145); eGFR For African Americans > 60 (> 60); eGFR For Non-African Americans > 60 (> 60)
[2017-02-16 04:36] LABS: Lymphocytes # 0.6 K/mcL (0.6-4.6); Monocytes # 1.3 K/mcL (0.0-1.3); Neutrophils # 8.7 K/mcL (1.6-8.9)
[2017-02-16 04:37] LABS: Platelet Estimate Normal (Normal)
[2017-02-16] MEDS: Sucralfate 1 GM TABLET PO SCH ×2 (10:22→10:47)
[2017-02-16] MEDS: Pantoprazole 40 MG VIAL IVP SCH (10:40)
[2017-02-16] MEDS: Magnesium Oxide 400 MG TABLET PO SCH (10:40)
[2017-02-16] MEDS: amLODIPine 5 MG TABLET PO SCH (10:41)
[2017-02-16] MEDS: 0.9 % Sodium Chloride 1,000 ML IVC SCH (10:42)
[2017-02-16 11:55] VITALS: BP 166/72
--- NOTE | 2017-02-16 13:18 | Physician Discharge Referral ---
ExtendedCare Referral Info Transfer To: [facility] Provider in Charge: Tianna Ordonez CNP Provider in Charge after Transfer: PCP Institutional Level of Care: Skilled - Diagnosis (1) Altered mental status Priority: Primary Status: Acute (2) Hand pain, right Priority: Primary Status: Acute (3) Anemia Priority: Secondary Status: Chronic (4) DVT prophylaxis Priority: Primary Status: Acute (5) Hypertension Priority: Secondary Status: Chronic (6) UTI (urinary tract infection) Priority: Primary Status: Acute (7) Generalized weakness Priority: Primary Status: Acute (8) Toxic metabolic encephalopathy Priority: Primary Status: Resolved (9) Complex regional pain syndrome of right upper extremity Priority: Secondary Status: Chronic (10) Colostomy in place Priority: Secondary Status: Chronic (11) Type 2 diabetes mellitus Priority: Secondary Status: Chronic (12) Chronic neutropenia Priority: Secondary Status: Chronic Prognosis: Good Aware of Diagnosis: Patient, Family Aware of Prognosis: Patient, Family - Transfer Medications Prescriptions: OxyCODONE Immed Rel [Roxicodone 5 MG] 5 mg PO Q4HR PRN #20 tablet PRN Reason: Pain Magnesium Oxide [Mag-Ox] 400 mg PO QAM #30 tablet PredniSONE 40 mg PO DAILY #10 tablet Home Medications: Glimepiride [Amaryl] 4 mg PO QAM 09/22/15 [History] Metformin [Glucophage] 1,000 mg PO BID 09/22/15 [History] Metoprolol [Lopressor] 25 mg PO BID 09/22/15 [History] Omeprazole [PriLOSEC] 20 mg PO QAM 09/22/15 [History] Amlodipine Besylate 10 mg PO DAILY 03/22/16 [History] Potassium Chloride [K-Tab ER] 20 meq PO QPM 03/22/16 [History] Calcium Citrate 400 mg PO TID 01/17/17 [History] Cholecalciferol (D-3) [Vitamin D] 2,000 unit PO DAILY 01/17/17 [History] Docusate [Colace] 100 mg PO BID 01/17/17 [History] Metoclopramide HCl 5 mg PO TID 01/17/17 [History] Sennosides [Senna] 8.6 mg PO BID 01/17/17 [History] Sucralfate [Carafate] 1 gm PO TIDAC 01/17/17 [History] Ferrous Sulfate 325 mg PO DAILY@0800 #30 tablet 01/20/17 [Rx] Ascorbate Calcium/Bioflavonoid [Gabriela-C 500 mg Tablet] 1 each PO DAILY 02/12/17 [History] Multivitamin [Multi-Day Vitamins] 1 each PO DAILY 02/12/17 [History] Nut.tx.gluc.intoler,Lac-Fr,Soy [Glucerna 1.5 Vicente] 237 ml PO BID 02/12/17 [ History] Magnesium Oxide [Mag-Ox] 400 mg PO QAM #30 tablet 02/16/17 [Rx] OxyCODONE Immed Rel [Roxicodone 5 MG] 5 mg PO Q4HR PRN #20 tablet 02/16/17 [Rx] PredniSONE 40 mg PO DAILY #10 tablet 02/16/17 [Rx] Allergies/Adverse Reactions: Allergies RODGER Inhibitors Adverse Reaction (Verified 01/17/17 13:54) See Comments UNSURE ampicillin Adverse Reaction (Verified 01/17/17 13:54) See Comments lisinopril Adverse Reaction (Verified 01/17/17 13:54) See Comments Tetracycline Adverse Reaction (Verified 01/17/17 13:54) See Comments - Respiratory Orders Smoking Cessation: Smoking cessation has been advised. For more information, call the [place] Tobacco Quit Line at 7-187-FIGE-NOW. - Ancillary Orders May use pressure relief devices daily prn, May go on AMBER w/family/respon libertarian w /meds at nurse discretion PRN, May have alcoholic beverages, May consult with Dentist, Upholstery Covers Inspector, Seasonal Retail Merchandiser PRN - Advance Directives Living Will: Yes Power of Medieval English Literature Professor: Yes Code Status: DNR-Arrest/Don't Intubate - Mobility Orders Ambulate (per PT) - Rehabiliation Orders Rehab Potential: Good Rehab Orders: ROM Exercises, Evaluation for Physical Therapy, Evaluation for Occupational Therapy, Evaluation for Speech Therapy - Treatments Skin tear care topically daily PRN per policy, May check for fecal impaction rectally daily PRN, Fleet enema rectally every other day PRN cleansing purposes - Diet Orders No Added Salt (LV), No Concentrated Sweets, Renal, Cardiac CERTIFICATION: I certify that the transfer of the above named patient to an Extended Care Facility is necessary for the continuing treatment of the diagnosis listed. The above information is true and accurate reflection of patient's current condition. Confidential - Redisclosure prohibited without a patient's written consent.
== END 2017-02-16 13:54 | DRG 689 ==
LOC: EMEROO 16:16 → 3ANU 16:16 → 3BNU 20:50
PROVIDERS: ADMIT Internal Medicine; ATTEND Nurse Practitioner Family

== ENCOUNTER 2017-04-06 07:22 | Observation (INO) ==
[2017-04-06] MEDS ORDERED: 0.9 % Sodium Chloride 1,000 ML IVC ONE (07:33)
[2017-04-06] MEDS ORDERED: Ondansetron 4 MG/2 ML VIAL IVP ONE ×2 (07:33→07:36)
--- NOTE | 2017-04-06 07:55 | Emergency Department Note ---
Disposition Clinical Impression: Hyperglycemia, History of colostomy, Elevated blood pressure reading, Hypomagnesemia Nausea & vomiting Qualifiers: Vomiting type: unspecified Vomiting Intractability: intractable Qualified Code( s): R11.2 - Nausea with vomiting, unspecified Leukopenia Qualifiers: Leukopenia type: unspecified Qualified Code(s): D72.819 - Decreased white blood cell count, unspecified Disposition: Admitted As Inpatient Condition: Fair General Adult HPI - General Chief complaint: ED Nausea/Vomiting/Diarrhea Stated complaint: vomiting Time Seen by Provider: 04/06/17 07:33 Source: patient, family Mode of arrival: wheelchair Limitations: no limitations Nursing Notes Reviewed: Yes Vital Signs Reviewed: Yes - History of Present Illness HPI Narrative: 76 year old female history of diabetes, hypertension, diverticulitis status post colostomy present for evaluation of nausea and vomiting. Patient notes 2 days of nausea with persistent emesis. Appears to be nonbloody nonbilious. Patient's nausea is not correlated with meals. Denies any abdominal pain. Denies any fevers. at bedside states the patient has not been able to take her home medications due to her persistent nausea. denies any change in stool output from the ostomy site. States that they did have some redness over the ostomy site in the past which appears to be healing. Has been evaluated for this redness in the past. Denies any abdominal pain. No fevers. No chest pain or distress of breath. Reports that she still has urinary output without dysuria or frequency. Has had her gallbladder removed. Patient also notes the colostomy has been placed for more than 4 years. Denies any recent ill contacts. Denies any recent travel or change in food. Pain Scale: 0 - Related Data Home Medications Medication Instructions Recorded Confirmed Glimepiride [Amaryl] 4 mg PO QAM 09/22/15 02/12/17 Metformin [Glucophage] 1,000 mg PO BID 09/22/15 02/12/17 Metoprolol [Lopressor] 25 mg PO BID 09/22/15 02/12/17 Omeprazole [PriLOSEC] 20 mg PO QAM 09/22/15 02/12/17 Amlodipine Besylate 10 mg PO DAILY 03/22/16 02/12/17 Potassium Chloride [K-Tab ER] 20 meq PO QPM 03/22/16 02/12/17 Calcium Citrate 400 mg PO TID 01/17/17 02/12/17 Cholecalciferol (D-3) [Vitamin D] 2,000 unit PO DAILY 01/17/17 02/12/17 Docusate [Colace] 100 mg PO BID 01/17/17 02/12/17 Metoclopramide HCl 5 mg PO TID 01/17/17 02/12/17 Sennosides [Senna] 8.6 mg PO BID 01/17/17 02/12/17 Sucralfate [Carafate] 1 gm PO TIDAC 01/17/17 02/12/17 Ascorbate Calcium/Bioflavonoid 1 each PO DAILY 02/12/17 02/12/17 [Gabriela-C 500 mg Tablet] Multivitamin [Multi-Day Vitamins] 1 each PO DAILY 02/12/17 02/12/17 Nut.tx.gluc.intoler,Lac-Fr,Soy 237 ml PO BID 02/12/17 02/12/17 [Glucerna 1.5 Vicente] Previous Rx's Medication Instructions Recorded Ferrous Sulfate 325 mg PO DAILY@0800 #30 tablet 01/20/17 Magnesium Oxide [Mag-Ox] 400 mg PO QAM #30 tablet 02/16/17 OxyCODONE Immed Rel [Roxicodone 5 5 mg PO Q4HR PRN #20 tablet 02/16/17 MG] predniSONE [PredniSONE] 40 mg PO DAILY #10 tablet 02/16/17 Miconazole 2% ointment [Aloe [place] 1 appl TP BID #1 tube 03/10/17 Antifungal Ointment] Fluconazole [Diflucan] 100 mg PO DAILY #7 tablet 03/29/17 Allergies Allergy/AdvReac Type Severity Reaction Status Date / Time RODGER Inhibitors AdvReac See Verified 01/17/17 13:54 Comments ampicillin AdvReac See Verified 01/17/17 13:54 Comments lisinopril AdvReac See Verified 01/17/17 13:54 Comments Tetracycline AdvReac See Verified 01/17/17 13:54 Comments All systems ED: reviewed and negative except as stated. Constitutional: Reports: as per HPI. Denies: fever Eyes: Reports: as per HPI ENT ED: Reports: as per HPI Cardiovascular: Reports: as per HPI. Denies: chest pain Respiratory: Reports: as per HPI. Denies: cough, dyspnea Gastrointestinal: Reports: as per HPI, nausea, vomiting. Denies: abdominal pain , diarrhea, constipation, hematemesis Genitourinary: Reports: as per HPI Musculoskeletal: Reports: as per HPI Integumentary: Reports: as per HPI Neurological: Reports: as per HPI Psychiatric: Reports: as per HPI Endocrine: Reports: as per HPI Hematological/Lymphatic: Reports: as per HPI Allergic/Immunologic: Reports: as per HPI Past Medical History - Past Medical History Medical history: Reports: arthritis, diabetes, GERD, hypertension, kidney stones , osteoporosis, RA, renal disease, valvular heart disease, other Surgical history: Reports: cholecystectomy, colectomy, colostomy, herniorrhaphy , knee replacement, ureteral stent, other Psychiatric history: Reports: anxiety, depression, other SCALE EXPERT history: Reports: no SCALE EXPERT history - Social History Smoking Status: Former smoker Smokeless Tobacco Status: No Alcohol use: Reports: none Drug use: Reports: none Physical Exam - General Limitations: no limitations General appearance: alert, in no apparent distress, other (appears uncomfortable ) - Head Head exam: atraumatic, normocephalic, normal inspection - Eye Eye exam: Present: normal appearance, other (Right subconjunctival hemorrhage is been present for over 2 weeks) - ENT ENT exam: normal exam, mucous membranes moist - Neck Neck exam: Present: normal inspection, trachea midline - Chest Chest inspection: Present: normal inspection, symmetric chest wall rise - Respiratory Respiratory exam: Present: normal lung sounds bilaterally. Absent: respiratory distress, prolonged expiratory phase - Cardiovascular Cardiovascular exam: Present: normal rhythm, tachycardia - Abdominal Exam Abdominal exam: Present: soft, Non-Tender, normal bowel sounds, other ( Functioning ostomy site with mild erythema without secondary signs of infection. Non bloody stools). Absent: distention, guarding, rebound - Extremities Exam Extremities exam: Present: normal inspection. Absent: pedal edema - Back Exam Back exam: Present: normal inspection. Absent: CVA tenderness (R), CVA tenderness (L) - Neurological Exam Neurological exam: Present: alert - Skin Skin exam: Present: warm, dry, intact, normal color Course Course Narrative: Patient seen and examined upon arrival. Patient appears to be uncomfortable with persistent vomiting. Patient will have sodium actually with IV fluids, Zofran. Patient denies any pain. Patient will have abdominal labs including a lactate and lipase. Patient also given EKG and troponin to ensure this is not an anginal colon. Patient will also get a CT abdomen and pelvis. Disposition pending. - Reevaluation(s) Reevaluation #1: Patient seen and examined. Patient had difficulty IV access. PICC team consult for midline. Time: 08:42 Reevaluation #2: Patient seen and examined. Patient notes some comfort from interventions provided. Patient's lab work reviewed. Patients receiving IV fluids. Time: 09:29 Vital Signs Temperature 97.7 F 04/06/17 07:23 Pulse Rate 90 04/06/17 07:23 Respiratory Rate 16 04/06/17 07:23 Blood Pressure 146/83 04/06/17 07:23 O2 Sat by Pulse Oximetry 95 04/06/17 07:23 Temperature 97.7 F 04/06/17 07:23 Pulse Rate 76 04/06/17 10:12 Respiratory Rate 16 04/06/17 10:13 Blood Pressure 149/94 04/06/17 10:13 O2 Sat by Pulse Oximetry 96 04/06/17 10:12 Oxygen Delivery Oxygen Delivery Room Air Medical Decision Making - MDM Narrative Medical decision making narrative: 76-year-old female presents for evaluation of nausea vomiting. Patient notes vomiting for the past 2 days. Patient does have a history of diabetes and hypertension. Concerned that this may be an anginal equivalent. Patient has not been able to tolerate her oral medications. Patient does have a colostomy. Patient's CAT scan results of her abdomen and pelvis do not reveal clear etiology or source of her vomiting. Patient denies any change in stool or bladder. Patient's treated with Zofran 2 as well as IV fluid hydration. Patient will get a urinalysis. Patient will be admitted to the hospital service for continued IV fluid hydration and antiemetic control and monitoring. Given the fact that the patient has not been able tolerate her oral medications at home for the past couple days. Likely the patient would benefit from inpatient monitoring as well as medication administration. Family as well as patient at bedside agree. - Lab Data Lab results reviewed: Yes I reviewed the patient's lab results. Result diagrams: 04/06/17 07:50 04/06/17 07:50 Lab Results 04/06/17 04/06/17 04/06/17 Range/Units 07:50 07:50 07:50 WBC 3.3 L (4.3-11.1) K/mcL RBC 4.11 (3.82-4.97) M/mcL Hgb 12.6 (11.5-15.4) g/dL Hct 37.8 (35.3-44.9) % MCV 92.0 (83.0-100.0) fL MCH 30.7 (28.0-33.3) pg MCHC 33.3 (31.6-35.5) g/dL RDW 14.3 (11.5-14.5) % Plt Count 252 (140-400) K/mcL MPV 10.4 (9.4-12.4) fL Immature Gran % 0.0 (0-4) % Seg Neutrophils % 46.4 % Lymphocytes % 24.4 % Monocytes % 12.8 % Eosinophils % 14.9 % Basophils % 1.5 % Neutrophils # 1.5 L (1.6-8.9) K/mcL Lymphocytes # 0.8 (0.6-4.6) K/mcL Monocytes # 0.4 (0.0-1.3) K/mcL Eosinophils # 0.5 (0.0-0.6) K/mcL Basophils # 0.1 (0.0-0.2) K/mcL PT (9.4-12.1) Seconds INR Sodium 136 (136-145) mEq/L Potassium 3.5 (3.5-4.5) mEq/L Chloride 101 (98-109) mEq/L Carbon Dioxide 23 (19-29) mEq/L BUN 10 (7-20) mg/dL Creatinine 0.86 (0.57-1.11) mg/dL Est GFR ( Amer) > 60 (> 60) Est GFR (Non-Af Amer) > 60 (> 60) BUN/Creatinine Ratio 12 (6-26) Glucose 177 H (70-99) mg/dL Calculated Osmolality 285 (280-300) Lactic Acid (0.5-2.2) mmol/L Calcium 10.7 (8.6-10.8) mg/dL Magnesium 0.8 L (1.6-2.6) mg/dL Total Bilirubin 0.6 (0.2-1.2) mg/dL AST 17 (5-34) Units/L ALT 14 (0-55) Units/L Alkaline Phosphatase 102 (38-126) Units/L Troponin I 0.01 (0-0.03) ng/mL Serum Total Protein 7.5 (6.0-8.3) g/dL Albumin 3.2 L (3.5-5.0) g/dL Globulin 4.3 H (2.4-3.5) g/dL Albumin/Globulin Ratio 0.7 L (1.1-2.2) Lipase 16 (8-78) Units/L 04/06/17 04/06/17 Range/Units 07:50 07:50 WBC (4.3-11.1) K/mcL RBC (3.82-4.97) M/mcL Hgb (11.5-15.4) g/dL Hct (35.3-44.9) % MCV (83.0-100.0) fL MCH (28.0-33.3) pg MCHC (31.6-35.5) g/dL RDW (11.5-14.5) % Plt Count (140-400) K/mcL MPV (9.4-12.4) fL Immature Gran % (0-4) % Seg Neutrophils % % Lymphocytes % % Monocytes % % Eosinophils % % Basophils % % Neutrophils # (1.6-8.9) K/mcL Lymphocytes # (0.6-4.6) K/mcL Monocytes # (0.0-1.3) K/mcL Eosinophils # (0.0-0.6) K/mcL Basophils # (0.0-0.2) K/mcL PT 11.8 (9.4-12.1) Seconds INR 1.1 Sodium (136-145) mEq/L Potassium (3.5-4.5) mEq/L Chloride (98-109) mEq/L Carbon Dioxide (19-29) mEq/L BUN (7-20) mg/dL Creatinine (0.57-1.11) mg/dL Est GFR ( Amer) (> 60) Est GFR (Non-Af Amer) (> 60) BUN/Creatinine Ratio (6-26) Glucose (70-99) mg/dL Calculated Osmolality (280-300) Lactic Acid 2.1 (0.5-2.2) mmol/L Calcium (8.6-10.8) mg/dL Magnesium (1.6-2.6) mg/dL Total Bilirubin (0.2-1.2) mg/dL AST (5-34) Units/L ALT (0-55) Units/L Alkaline Phosphatase (38-126) Units/L Troponin I (0-0.03) ng/mL Serum Total Protein (6.0-8.3) g/dL Albumin (3.5-5.0) g/dL Globulin (2.4-3.5) g/dL Albumin/Globulin Ratio (1.1-2.2) Lipase (8-78) Units/L - Radiology Data Radiology results reviewed: Yes I reviewed the patient's radiology results. Abdomen/Pelvis CT 04/06/17 07:51 IMPRESSION: 1. There is a 1 cm stone in the right renal pelvis, with chronic inflammation of the right renal pelvis, appearing similar on the previous exam. Punctate nonobstructing left renal stone also noted 2. There has been partial colectomy with left lower quadrant ostomy present. Diverticulosis is present involving the colon with no acute inflammatory process 3. Stable pancreatic tail mass 4. Ill-defined low-density lesions in left hepatic lobe are difficult to directly compare to the prior exam, due to lack of contrast, but do appear grossly stable. 5. Multiple small bowel adhesions without evidence of small-bowel obstruction D/ / Cesario Alexis MD / Cesario Alexis MD Interpreting Provider: Cesario Alexis MD - EKG Data EKG #1 EKG shows normal: sinus rhythm Rate: tachycardia Rhythm: NSR [place]/QRS: left axis deviation, LAHB/LAFB Interpretation: no acute changes, unchanged when compared to prior tracing (date ) (02/12/17), nonspecific ST-T wave changes S.B.A.R. - S.B.AMarcellusRMarcellus Situation: Demographics Background: Presenting Complaint Assessment: Vital Signs, Course and respsone to treatment, Patient/Family Expectation Recommendation: Barrier(s) to disposition, Recommendation based on pending studies, treatments, or consults S.B.A.RMarcellus Report Given to: Dr. Franco Wynne Time: 09:56
[2017-04-06 07:57] LABS: Basophils # 0.1 K/mcL (0.0-0.2); Basophils % 1.5 %; Eosinophils # 0.5 K/mcL (0.0-0.6); Eosinophils % 14.9 %; Hematocrit 37.8 % (35.3-44.9); Hemoglobin 12.6 g/dL (11.5-15.4); Lymphocytes # 0.8 K/mcL (0.6-4.6); Lymphocytes % 24.4 %; Mean Corpuscular HGB Conc 33.3 g/dL (31.6-35.5); Mean Corpuscular Hemoglobin 30.7 pg (28.0-33.3); Mean Platelet Volume 10.4 fL (9.4-12.4); Monocytes # 0.4 K/mcL (0.0-1.3); Monocytes % 12.8 %; Neutrophils # 1.5 K/mcL (1.6-8.9); Platelet Count 252 K/mcL (140-400); Red Blood Count 4.11 M/mcL (3.82-4.97); Red Cell Distribution Width 14.3 % (11.5-14.5); Segmented Neutrophils % 46.4 %
[2017-04-06 08:04] LABS: INR 1.1; Prothrombin Time 11.8 Seconds (9.4-12.1)
[2017-04-06 08:11] LABS: Alanine Aminotransferase 14 Units/L (0-55); Albumin 3.2 g/dL (3.5-5.0); Albumin/Globulin Ratio 0.7 (1.1-2.2); Alkaline Phosphatase 102 Units/L (38-126); Aspartate Amino Transferase 17 Units/L (5-34); BUN/Creatinine Ratio 12 (6-26); Bilirubin,Total 0.6 mg/dL (0.2-1.2); Blood Urea Nitrogen 10 mg/dL (7-20); Calcium 10.7 mg/dL (8.6-10.8); Carbon Dioxide 23 mEq/L (19-29); Chloride 101 mEq/L (98-109); Globulin 4.3 g/dL (2.4-3.5); Glucose 177 mg/dL (70-99); Lipase 16 Units/L (8-78); Osmolality,Calculated 285 (280-300); Potassium 3.5 mEq/L (3.5-4.5); Sodium 136 mEq/L (136-145); Total Protein 7.5 g/dL (6.0-8.3); eGFR For African Americans > 60 (> 60); eGFR For Non-African Americans > 60 (> 60)
--- NOTE | 2017-04-06 08:23 | Emergency Department Note ---
START Narrative - START START: I examined this patient and my medical decision-making was reviewed with the TRACK LAYER HEAD/PA/Advanced Practice Nurse/Resident Physician. I agree with the documented findings, disposition and treatment plan as described except to the extent set forth below. ED attending note: Patient seen with emergency medicine resident Dr. Morales. Please see a copy of his note for details of the H&P, evaluation, management and disposition of this patient. We independently had [id number] contact with the patient Briefly: 76-year-old female with history of partial colectomy with colostomy present with vomiting and abdominal cramping. Patient. Shaky dehydrated ill but nontoxic. Peripheral IV sticks 3 have been unsuccessful. Picking contacted for midline insertion. In the differential is possible obstruction versus ileus versus infection versus metabolic arrangements. Patient Placed IV fluids and IV antiemetics abdominopelvic CT scan and screening labs. Provided 45 minutes critical care service of this patient. Disposition pending but admission anticipated.
[2017-04-06 08:33] LABS: Magnesium 0.8 mg/dL (1.6-2.6)
[2017-04-06] MEDS ORDERED: Naloxone 0.4 MG/ML INJ IVP PRN (10:40)
[2017-04-06] MEDS ORDERED: Acetaminophen 325 MG TABLET PO PRN (10:40)
[2017-04-06] MEDS ORDERED: D5% in Water 1,000 ML IVC PRN (10:43)
[2017-04-06] MEDS ORDERED: *HR* Dextrose 50 % in Water (Syg) 50 ML SYRINGE IVP PRN (10:43)
[2017-04-06] MEDS ORDERED: Dextrose Gel 15 GM PO PRN ×2 (10:43)
--- NOTE | 2017-04-06 10:49 | Internal Med History&Physical ---
Date of Encounter: 04/06/17 Time of Encounter: 10:46 Assessment and Plan (1) Gastroenteritis Current visit: Yes Status: Acute Dehydration secondary to Acute gastroenteritis, likely viral Continue IV fluids, replete electrolytes Send C. difficile and stool cultures Zofran and morphine as needed Continue Protonix IV for GI prophylaxis and some continuous heparin for DVT prophylaxis. Patient will be admitted for observation. Full code. Time spent on this admission 40 minutes. High risk due to dehydration (2) Conjunctivitis Current visit: Yes Status: Acute Start ciprofloxacin every 4 hours on the right eye Qualifiers: Conjunctivitis type: acute Acute conjunctivitis type: bacterial Laterality: right Qualified Code(s): H10.31 - Unspecified acute conjunctivitis , right eye (3) Rheumatoid arthritis Current visit: Yes Status: Acute Continue prednisone Qualifiers: Rheumatoid factor presence: unspecified presence Laterality: unspecified laterality Qualified Code(s): M06.9 - Rheumatoid arthritis, unspecified (4) Dehydration Current visit: No Status: Acute (5) Hypomagnesemia Current visit: No Status: Acute Repeat as needed (6) Hyperglycemia Current visit: Yes Status: Acute Diabetes type 2 not insulin-dependent Hold glimepiride and metformin, continue insulin sliding scale (7) Leukopenia Current visit: Yes Status: Acute Chronic neutropenia likely related to rheumatoid arthritis followed by hematology as outpatient Qualifiers: Leukopenia type: neutropenia Neutropenia type: unspecified Qualified Code (s): D70.9 - Neutropenia, unspecified (8) Colostomy in place Current visit: No Status: Chronic Wound care/Rizwana Gill ostomy nurse consult Internal Medicine - H&P: HPI Chief complaint: vomiting History of present illness: Ms. Hardy is a 76 year old female with past medical history of rheumatoid arthritis, chronic neutropenia, diabetes type 2 not insulin-dependent came to the emergency room complaining of 2 days of nausea and vomiting. She has a colostomy has not been putting out more stool. She says the pain happened and has been moderate. She was recently discharged from the hospital on February 16. A CT scan was done at the emergency room that shows bilateral renal stones, diverticulosis, a persistent and stable pancreatic mass that has been there for years, lesions on the left hepatic lobe and multiple small bowel adhesions without any sign of obstruction. Patient has not been able to keep anything down and is very dehydrated. Her magnesium is 0.8 glucose 177, she has not been able to take any of her medications, neutrophils are 1.5 and white blood cell count is 3.3. Heart rate was 90 blood pressure 146/83. Also, she has been complaining of right eye itchiness and pain for the past 2 weeks. Denies any other complaints, feels very weak Past Med Surg Social Fam HX - Past Medical History Medical history: arthritis (Rheumatoid arthritis), diabetes (Not insulin- dependent), GERD, hypertension, kidney stones, osteoporosis, RA, renal disease, valvular heart disease, other (Diverticulosis and diverticulitis, also arthritis , chronic pancreatic tail mass, GERD, chronic neutropenia, UTIs) Psychiatric history: anxiety, depression, other - Past Surgical History Surgical History: cholecystectomy, colectomy, colostomy, herniorrhaphy, knee replacement, ureteral stent, other - Social History Smoking Status: Former smoker Smokeless Tobacco Status: No Alcohol use: none Drug use: none - Family History Son Living Status: Still Living Hx Family Cardiac Disorders: No Hx Family Respiratory Disorders: Yes Hx Family Cancer: No Hx Family GI Disorders: No Hx Family Endocrine Disorder: No Hx Family Neuromuscular Disorders: No Hx Family Neurologic Disorders: No Hx Family HEENT Disorders: No Hx Family Autoimmune Disorders: Yes (Autoimmune dx, unable to remember name) - Additional Family History Additional family history: Father and brothers with MIs in their 40s and 50s Internal Medicine - H&P: Meds Glimepiride [Amaryl] 4 mg PO QAM 09/22/15 [History] Metformin [Glucophage] 1,000 mg PO BID 09/22/15 [History] Metoprolol [Lopressor] 25 mg PO BID 09/22/15 [History] Omeprazole [PriLOSEC] 20 mg PO QAM 09/22/15 [History] Amlodipine Besylate 10 mg PO DAILY 03/22/16 [History] Potassium Chloride [K-Tab ER] 20 meq PO QPM 03/22/16 [History] Calcium Citrate 400 mg PO TID 01/17/17 [History] Cholecalciferol (D-3) [Vitamin D] 2,000 unit PO DAILY 01/17/17 [History] Docusate [Colace] 100 mg PO BID 01/17/17 [History] Metoclopramide HCl 5 mg PO TID 01/17/17 [History] Sennosides [Senna] 8.6 mg PO BID 01/17/17 [History] Sucralfate [Carafate] 1 gm PO TIDAC 01/17/17 [History] Ferrous Sulfate 325 mg PO DAILY@0800 #30 tablet 01/20/17 [Rx] Ascorbate Calcium/Bioflavonoid [Gabriela-C 500 mg Tablet] 1 each PO DAILY 02/12/17 [History] Multivitamin [Multi-Day Vitamins] 1 each PO DAILY 02/12/17 [History] Nut.tx.gluc.intoler,Lac-Fr,Soy [Glucerna 1.5 Vicnete] 237 ml PO BID 02/12/17 [ History] Magnesium Oxide [Mag-Ox] 400 mg PO QAM #30 tablet 02/16/17 [Rx] OxyCODONE Immed Rel [Roxicodone 5 MG] 5 mg PO Q4HR PRN #20 tablet 02/16/17 [Rx] predniSONE [PredniSONE] 40 mg PO DAILY #10 tablet 02/16/17 [Rx] Miconazole 2% ointment [Aloe [place] Antifungal Ointment] 1 appl TP BID #1 tube [Rx] Fluconazole [Diflucan] 100 mg PO DAILY #7 tablet 03/29/17 [Rx] Allergies RODGER Inhibitors Adverse Reaction (Verified 01/17/17 13:54) See Comments UNSURE ampicillin Adverse Reaction (Verified 01/17/17 13:54) See Comments lisinopril Adverse Reaction (Verified 01/17/17 13:54) See Comments Tetracycline Adverse Reaction (Verified 01/17/17 13:54) See Comments All Systems PM: A 10-system review of systems was performed and is negative for pertinent findings except as documented above in the HPI. Review of systems: Continues to have nausea, denies any dysuria. Other systems out of the 10 reviewed were negative - Constitutional Vitals: Temp Pulse Resp BP Pulse Ox 97.7 F 76 16 149/94 96 04/06/17 07:23 04/06/17 10:12 04/06/17 10:13 04/06/17 10:13 04/06/17 10:12 General appearance: Present: A&O X 3 - Head Head exam: Present: atraumatic, normocephalic - Eye Eye exam: Present: PERRL, sclera anicteric. Absent: conjuntiva pink (Right eye conjunctivitis) Pupils: Present: PERRL - Neck Neck exam general surgery: Present: supple, trachea midline. Absent: lymphadenopathy - Respiratory Respiratory exam: Present: CTAB. Absent: accessory muscle use, rales, rhonchi, wheezes - Cardiovascular Cardiovascular exam: Present: RRR, +S1, +S2. Absent: diastolic murmur, gallop, rubs, systolic murmur - GI/Abdominal GI/Abdominal exam: Present: distended (Colostomy in place, the skin surrounding her colostomy is erythematosus with chronic changes, no acute infection), normal bowel sounds, soft, no peritoneal signs. Absent: tenderness - Extremities Exam Extremities exam: Present: pedal edema, warm, radial pulses palpable and symetrical. Absent: calf tenderness, cyanotic - Neurological Exam Neurological exam: Present: CN II-XII intact, oriented X3, no focal deficits. Absent: pronater drift, facial droop, speech deficit - Skin Skin exam: Present: dry, intact Internal Med - H&P Results - Labs CBC & Chem 7: 04/06/17 07:50 04/06/17 07:50
[2017-04-06] MEDS: 0.9 % Sodium Chloride 1,000 ML IVC SCH ×2 (12:10→20:48)
[2017-04-06] MEDS: Sucralfate 1 GM TABLET PO SCH ×2 (12:12→17:23)
[2017-04-06] MEDS: Magnesium Oxide 400 MG TABLET PO SCH ×2 (12:13→20:51)
[2017-04-06] MEDS: *HR* Heparin 5,000 UNIT/ML VIAL SQ SCH ×2 (12:13→18:03)
[2017-04-06] MEDS: Pantoprazole 40 MG VIAL IVP SCH (12:13)
[2017-04-06] MEDS: Insulin LISPRO 300 UNITS/3 ML VIAL SQ SCH ×3 (12:15→20:40)
[2017-04-06] MEDS: Ciprofloxacin OPTH Soln 2.5 ML BOTTLE RIGHT EYE SCH ×3 (12:24→20:51)
--- NOTE | 2017-04-06 16:42 | Electrocardiograph Report ---
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
[2017-04-06] MEDS: CALCIUM CITRATE 400 MG PO SCH ×2 (17:09→20:52)
[2017-04-06 18:12] LABS: C.difficile Toxin A/B by PCR Not detected (Not detect); Campylobacter by PCR Not detected (Not detect); E. coli O157 by PCR Not detected (Not detect); Enteroaggregative E.coli(EAEC) Not detected (Not detect); Enteropathogenic E.coli(EPEC) Not detected (Not detect); Enterotoxigenic E.coli (ETEC) Not detected (Not detect); Plesiomonas shigelloides PCR Not detected (Not detect); Salmonella PCR Not detected (Not detect); Shigalike tox-prod E coli STEC Not detected (Not detect); Vibrio PCR Not detected (Not detect); Vibrio cholerae PCR Not detected (Not detect); Yersinia enterocolitica PCR Not detected (Not detect)
[2017-04-06 18:13] LABS: Adenovirus F 40/41 PCR Not detected (Not detect); Astrovirus PCR Not detected (Not detect); Cryptosporidium by PCR Not detected (Not detect); Cyclospora cayetanensis PCR Not detected (Not detect); Entamoeba histolytica PCR Not detected (Not detect); Giardia lamblia PCR Not detected (Not detect); Norovirus GI/GII PCR Not detected (Not detect); Rotavirus A PCR Not detected (Not detect); Sapovirus PCR Not detected (Not detect); Shig/EnteroinvasiveE coli EIEC Not detected (Not detect)
[2017-04-06] MEDS: Ondansetron 4 MG/2 ML VIAL IVP PRN (20:49)
[2017-04-07] MEDS: Ciprofloxacin OPTH Soln 2.5 ML BOTTLE RIGHT EYE SCH ×6 (00:01→20:41)
[2017-04-07 03:36] LABS: Basophils # 0.1 K/mcL (0.0-0.2); Basophils % 2.4 %; Eosinophils # 0.6 K/mcL (0.0-0.6); Eosinophils % 27.4 %; Hematocrit 31.3 % (35.3-44.9); Lymphocytes # 0.8 K/mcL (0.6-4.6); Lymphocytes % 35.8 %; Mean Corpuscular HGB Conc 33.2 g/dL (31.6-35.5); Mean Corpuscular Hemoglobin 30.8 pg (28.0-33.3); Mean Corpuscular Volume 92.6 fL (83.0-100.0); Mean Platelet Volume 10.5 fL (9.4-12.4); Monocytes # 0.5 K/mcL (0.0-1.3); Monocytes % 23.1 %; Neutrophils # 0.2 K/mcL (1.6-8.9); Platelet Count 210 K/mcL (140-400); Red Blood Count 3.38 M/mcL (3.82-4.97); Red Cell Distribution Width 14.2 % (11.5-14.5); Segmented Neutrophils % 11.3 %
[2017-04-07 03:37] LABS: Hemoglobin 10.4 g/dL (11.5-15.4)
[2017-04-07 03:46] LABS: BUN/Creatinine Ratio 8 (6-26); Blood Urea Nitrogen 6 mg/dL (7-20); Calcium 9.4 mg/dL (8.6-10.8); Carbon Dioxide 25 mEq/L (19-29); Chloride 106 mEq/L (98-109); Glucose 138 mg/dL (70-99); Osmolality,Calculated 284 (280-300); Potassium 3.9 mEq/L (3.5-4.5); Sodium 137 mEq/L (136-145); eGFR For African Americans > 60 (> 60); eGFR For Non-African Americans > 60 (> 60)
[2017-04-07 03:52] LABS: Platelet Estimate Normal (Normal); Reactive Lymphocytes Present (Not Present)
[2017-04-07] MEDS: 0.9 % Sodium Chloride 1,000 ML IVC SCH ×2 (04:47→14:32)
[2017-04-07] MEDS: *HR* Heparin 5,000 UNIT/ML VIAL SQ SCH ×2 (06:00→18:10)
[2017-04-07] MEDS: Sucralfate 1 GM TABLET PO SCH ×3 (07:51→16:46)
[2017-04-07] MEDS: Insulin LISPRO 300 UNITS/3 ML VIAL SQ SCH ×4 (07:54→20:41)
[2017-04-07] MEDS ORDERED: predniSONE 20 MG TABLET PO SCH (09:00)
[2017-04-07] MEDS ORDERED: Magnesium Sulfate 2 GM in D5% in Water 100 ML IVPB ONE (09:38)
[2017-04-07] MEDS: *HR* OxyCODONE Immed Rel 5 MG TABLET PO PRN (09:41)
[2017-04-07] MEDS: Magnesium Oxide 400 MG TABLET PO SCH ×2 (09:42→20:42)
[2017-04-07] MEDS: Cholecalciferol (D-3) 1,000 UNIT TABLET PO SCH (09:42)
[2017-04-07] MEDS: amLODIPine 5 MG TABLET PO SCH (09:42)
[2017-04-07] MEDS: CALCIUM CITRATE 400 MG PO SCH ×3 (09:43→20:42)
[2017-04-07] MEDS: Pantoprazole 40 MG VIAL IVP SCH (09:43)
[2017-04-07 12:26] LABS: Bilirubin,Urine Negative (Negative); Blood,Urine Moderate (Negative); Clarity,Urine Clear (Clear); Color,Urine Yellow (Yellow); Glucose,Urine (UA) 100 mg/dL (Normal); Ketones,Urine Negative (Negative); Leukocyte Esterase,Urine Negative (Negative); Nitrite,Urine Positive (Negative); Protein,Urine Negative (Neg-Trace); Specific Gravity,Urine 1.012 (1.010-1.025); Urobilinogen,Urine Normal (Normal)
[2017-04-07 12:28] LABS: Bacteria,Urine Many per hpf (None-Few); Hyaline Casts,Urine None Seen per lpf (None-Few); Squamous Epithelial Cell,Urine Moderate per lpf (None-Few)
--- NOTE | 2017-04-07 14:37 | Internal Med Progress Note ---
Date of Encounter: 04/07/17 Time of Encounter: 14:35 - Assessment and plan (1) Neutropenic Current Visit: Yes Status: Acute Assessment and plan: Absolute neutrophil count is 237. Will put neutropenic precautions. Qualifiers: Qualified Code(s): D70.9 - Neutropenia, unspecified (2) UTI (urinary tract infection) Current Visit: No Status: Acute Assessment and plan: Ceftriaxone. Urine Culture Qualifiers: Urinary tract infection type: acute cystitis Hematuria presence: with hematuria Qualified Code(s): N30.01 - Acute cystitis with hematuria (3) Gastroenteritis Current Visit: Yes Status: Acute Assessment and plan: I will keep patient empirically on Flagyl. Await stool studies. (4) Conjunctivitis Current Visit: Yes Status: Acute Assessment and plan: Ciprofloxacin eyedrops. Qualifiers: Conjunctivitis type: acute Acute conjunctivitis type: bacterial Laterality: right Qualified Code(s): H10.31 - Unspecified acute conjunctivitis , right eye (5) Rheumatoid arthritis Current Visit: Yes Status: Acute Assessment and plan: She is on chronic steroids. However because she is neutropenic with evidence of UTI and gastroenteritis I will keep on stress doses of steroids Qualifiers: Rheumatoid factor presence: unspecified presence Laterality: unspecified laterality Qualified Code(s): M06.9 - Rheumatoid arthritis, unspecified - Subjective Interval history: Patient presented yesterday with vomiting diarrhea increased output in the colostomy bag. Stools are still watery. Denies abdominal pain afebrile. Today she is neutropenic - Constitutional Vitals: Temp Pulse Resp BP Pulse Ox 98.3 F 59 16 133/64 95 04/07/17 11:56 04/07/17 11:56 04/07/17 11:56 04/07/17 11:56 04/07/17 11:56 General appearance: Present: A&O X 3 Exam: Gen.: patient is alert oriented times 3 not in distress. Cardiac: normal S1 S2 no additional sounds or murmurs chest: fair air entry. no active wheezing. No crackles or bronchial breathing. abdomen: soft nontender nondistended normal bowel sounds. colostomy bag in place neuro: no focal deficit Internal Medicine: Result - Labs CBC & Chem 7: 04/07/17 03:10 04/07/17 03:10 Labs: Short CBC 04/07/17 Range/Units 03:10 WBC 2.1 L (4.3-11.1) K/mcL Hgb 10.4 L D (11.5-15.4) g/dL Hct 31.3 L (35.3-44.9) % Plt Count 210 (140-400) K/mcL Neutrophils # 0.2 L (1.6-8.9) K/mcL BMP 04/07/17 03:10 Sodium 137 Potassium 3.9 Chloride 106 Carbon Dioxide 25 BUN 6 L Creatinine 0.76 Glucose 138 H Calcium 9.4 Urine 04/07/17 Range/Units 12:10 Urine Color Yellow (Yellow) Urine Clarity Clear (Clear) Urine pH 6.0 (5.0-8.0) pH Units Ur Specific [place] 1.012 (1.010-1.025) Urine Protein Negative (Neg-Trace) mg/dL Urine Glucose (UA) 100 H (Normal) mg/dL - ABG Interpretation ABG results: PT/INR, D-dimer PT 11.8 Seconds (9.4-12.1) 04/06/17 07:50 - VTE Documentation of Mechanical Device: Graduated compression elastic hosiery Consult Discharge Plan - Plan Referrals: Philippe Scott Jr, MD [Primary Care Provider] -
[2017-04-07] MEDS: Levofloxacin 750 MG/150 ML 750 MG/150 ML BAG IVPB SCH (14:51)
[2017-04-07] MEDS: MetroNIDAZOLE 500 MG/100 ML 500 MG/100 ML BAG IVPB SCH (16:45)
[2017-04-07] MEDS: Hydrocortisone Sodium Succ 100 MG/2 ML VIAL IVP SCH (16:46)
[2017-04-08] MEDS: Hydrocortisone Sodium Succ 100 MG/2 ML VIAL IVP SCH ×2 (00:12→09:39)
[2017-04-08] MEDS: Ondansetron 4 MG/2 ML VIAL IVP PRN (00:12)
[2017-04-08] MEDS: MetroNIDAZOLE 500 MG/100 ML 500 MG/100 ML BAG IVPB SCH ×2 (00:12→09:39)
[2017-04-08] MEDS: Ciprofloxacin OPTH Soln 2.5 ML BOTTLE RIGHT EYE SCH ×6 (00:12→20:09)
[2017-04-08] MEDS: 0.9 % Sodium Chloride 1,000 ML IVC SCH ×3 (00:13→20:19)
[2017-04-08] MEDS: *HR* Heparin 5,000 UNIT/ML VIAL SQ SCH ×2 (05:50→18:33)
[2017-04-08] MEDS: Insulin LISPRO 300 UNITS/3 ML VIAL SQ SCH ×3 (09:30→16:47)
[2017-04-08] MEDS: Pantoprazole 40 MG VIAL IVP SCH (09:39)
[2017-04-08] MEDS: Magnesium Oxide 400 MG TABLET PO SCH ×2 (09:39→20:10)
[2017-04-08] MEDS: Cholecalciferol (D-3) 1,000 UNIT TABLET PO SCH (09:40)
[2017-04-08] MEDS: amLODIPine 5 MG TABLET PO SCH (09:40)
[2017-04-08] MEDS: Sucralfate 1 GM TABLET PO SCH ×3 (09:41→16:48)
[2017-04-08] MEDS: CALCIUM CITRATE 400 MG PO SCH ×3 (09:42→20:12)
[2017-04-08] MEDS: *HR* OxyCODONE Immed Rel 5 MG TABLET PO PRN (09:47)
[2017-04-08 12:38] LABS: Basophils % 0.6 %; Eosinophils % 0.6 %; Hematocrit 29.1 % (35.3-44.9); Hemoglobin 9.6 g/dL (11.5-15.4); Immature Granulocytes % 0.6 % (0-4); Lymphocytes # 0.4 K/mcL (0.6-4.6); Lymphocytes % 27.7 %; Mean Corpuscular Hemoglobin 30.5 pg (28.0-33.3); Mean Corpuscular Volume 92.4 fL (83.0-100.0); Monocytes # 0.5 K/mcL (0.0-1.3); Monocytes % 28.9 %; Neutrophils # 0.7 K/mcL (1.6-8.9); Platelet Count 216 K/mcL (140-400); Red Blood Count 3.15 M/mcL (3.82-4.97); Red Cell Distribution Width 13.6 % (11.5-14.5); Segmented Neutrophils % 41.6 %
[2017-04-08 12:45] LABS: BUN/Creatinine Ratio 6 (6-26); Calcium 8.9 mg/dL (8.6-10.8); Carbon Dioxide 21 mEq/L (19-29); Chloride 103 mEq/L (98-109); Glucose 277 mg/dL (70-99); Osmolality,Calculated 289 (280-300); Potassium 2.9 mEq/L (3.5-4.5); Sodium 136 mEq/L (136-145); eGFR For African Americans > 60 (> 60); eGFR For Non-African Americans > 60 (> 60)
[2017-04-08 12:46] LABS: Blood Urea Nitrogen 5 mg/dL (7-20)
[2017-04-08 12:53] LABS: Platelet Estimate Normal (Normal)
--- NOTE | 2017-04-08 14:51 | Internal Med Progress Note ---
Date of Encounter: 04/08/17 Time of Encounter: 09:00 - Assessment and plan (1) DVT prophylaxis Current Visit: No Status: Acute Assessment and plan: Heparin subcutaneously (2) Hypertension Current Visit: No Status: Chronic Assessment and plan: Continue home medications Qualifiers: Hypertension type: essential hypertension Qualified Code(s): I10 - Essential (primary) hypertension (3) History of colostomy Current Visit: Yes Status: Acute (4) Leukopenia Current Visit: Yes Status: Acute Assessment and plan: Stable. Chronic. Previous oncology consult note reviewed. Qualifiers: Leukopenia type: neutropenia Neutropenia type: unspecified Qualified Code (s): D70.9 - Neutropenia, unspecified (5) Gastroenteritis Current Visit: Yes Status: Acute Assessment and plan: Stool study negative for C. difficile. Patient has no diarrhea or vomiting today. Will DC Flagyl. Advanced diet to regular diabetic diet. Patient has hypokalemia, will give potassium supplement. (6) Conjunctivitis Current Visit: Yes Status: Acute Assessment and plan: Ciprofloxacin eyedrops. Improved after treatment Qualifiers: Conjunctivitis type: acute Acute conjunctivitis type: bacterial Laterality: right Qualified Code(s): H10.31 - Unspecified acute conjunctivitis , right eye (7) Rheumatoid arthritis Current Visit: Yes Status: Acute Assessment and plan: She is on chronic steroids. Continue home medication Qualifiers: Rheumatoid factor presence: unspecified presence Laterality: unspecified laterality Qualified Code(s): M06.9 - Rheumatoid arthritis, unspecified (8) Type 2 diabetes mellitus Current Visit: No Status: Chronic Assessment and plan: Patient is on metformin and glimepiride at home. Place patient on sliding scale coverage. 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 Urine Culture shows gram-positive cocci. Waiting for final result. Qualifiers: Urinary tract infection type: acute cystitis Hematuria presence: with hematuria Qualified Code(s): N30.01 - Acute cystitis with hematuria - Time Spent With Patient 25 - 35 minutes - Subjective Interval history: Patient is a 76-year-old female admitted for gastroenteritis. His past medical history is significant for rheumatoid arthritis, chronic leukocytopenia, anemia , diabetes, hypertension, chronic pancreas tail mass Patient was seen and examined. She is awake alert, oriented 3. Complaining of hand joint pain, possibly due to her rheumatoid arthritis. Still feel mild nausea, no vomiting, no diarrhea. Vitals stable. Will advance diet to regular diabetic diet. Continue close monitoring. - Constitutional Vitals: Temp Pulse Resp BP Pulse Ox 97.7 F 51 16 137/66 97 04/08/17 12:18 04/08/17 12:18 04/08/17 12:18 04/08/17 12:18 04/08/17 12:18 General appearance: Present: mild distress, A&O X 3, answers questions appropriately - Head Head exam: Present: atraumatic, normocephalic - Eye Eye exam: Present: PERRL, conjuntiva pink, sclera anicteric Pupils: Present: PERRL - Neck Neck exam general surgery: Present: supple, trachea midline. Absent: lymphadenopathy - Respiratory Respiratory exam: Present: CTAB. Absent: accessory muscle use, rales, rhonchi, wheezes - Cardiovascular Cardiovascular exam: Present: RRR, +S1, +S2. Absent: diastolic murmur, gallop, rubs, systolic murmur - GI/Abdominal GI/Abdominal exam: Present: normal bowel sounds, soft, no peritoneal signs. Absent: distended, tenderness - Extremities Exam Extremities exam: Present: warm, radial pulses palpable and symetrical. Absent : calf tenderness, cyanotic, pedal edema - Neurological Exam Neurological exam: Present: CN II-XII intact, oriented X3, no focal deficits. Absent: pronater drift, facial droop, speech deficit - Skin Skin exam: Present: dry, intact Internal Medicine: Result - Labs CBC & Chem 7: 04/08/17 10:55 04/08/17 10:55 Labs: Short CBC 04/08/17 Range/Units 10:55 WBC 1.6 L (4.3-11.1) K/mcL Hgb 9.6 L (11.5-15.4) g/dL Hct 29.1 L (35.3-44.9) % Plt Count 216 (140-400) K/mcL Neutrophils # 0.7 L (1.6-8.9) K/mcL BMP 04/08/17 10:55 Sodium 136 Potassium 2.9 L D Chloride 103 Carbon Dioxide 21 BUN 5 L Creatinine 0.84 Glucose 277 H Calcium 8.9 - ABG Interpretation ABG results: PT/INR, D-dimer PT 11.8 Seconds (9.4-12.1) 04/06/17 07:50 - VTE Documentation of Mechanical Device: Graduated compression elastic hosiery Consult Discharge Plan - Plan Referrals: Philippe Scott Jr, MD [Primary Care Provider] -
[2017-04-08] MEDS ORDERED: NON-FORMULARY MEDICATION 1 EACH EACH (Alendronate Sodium [Fosamax] 70 MG) PO SCH (17:00)
[2017-04-09] MEDS: Insulin LISPRO 300 UNITS/3 ML VIAL SQ SCH ×5 (00:38→20:55)
[2017-04-09] MEDS: Ciprofloxacin OPTH Soln 2.5 ML BOTTLE RIGHT EYE SCH ×6 (00:54→20:54)
[2017-04-09] MEDS: *HR* OxyCODONE Immed Rel 5 MG TABLET PO PRN (00:58)
[2017-04-09] MEDS: *HR* Morphine 2 MG/ML SYRINGE IVP PRN ×2 (02:21→20:54)
[2017-04-09] MEDS: *HR* Heparin 5,000 UNIT/ML VIAL SQ SCH ×2 (05:28→17:05)
[2017-04-09] MEDS: Magnesium Oxide 400 MG TABLET PO SCH ×2 (08:51→20:54)
[2017-04-09] MEDS: Ascorbic Acid 500 MG TABLET PO SCH (08:51)
[2017-04-09] MEDS: Sucralfate 1 GM TABLET PO SCH ×3 (08:52→15:15)
[2017-04-09] MEDS: amLODIPine 5 MG TABLET PO SCH (08:54)
[2017-04-09] MEDS: Cholecalciferol (D-3) 1,000 UNIT TABLET PO SCH (08:54)
[2017-04-09] MEDS: Pantoprazole 40 MG VIAL IVP SCH (08:54)
[2017-04-09] MEDS: CALCIUM CITRATE 400 MG PO SCH ×2 (08:55→15:06)
[2017-04-09] MEDS: FLUoxetine 20 MG CAPSULE PO SCH (08:55)
[2017-04-09] MEDS: 0.9 % Sodium Chloride 1,000 ML IVC SCH (12:10)
--- NOTE | 2017-04-09 14:15 | Internal Med Progress Note ---
Date of Encounter: 04/09/17 Time of Encounter: 10:00 - Assessment and plan (1) DVT prophylaxis Current Visit: No Status: Acute Assessment and plan: Heparin subcutaneously (2) Hypertension Current Visit: No Status: Chronic Assessment and plan: Continue home medications Qualifiers: Hypertension type: essential hypertension Qualified Code(s): I10 - Essential (primary) hypertension (3) History of colostomy Current Visit: Yes Status: Acute (4) Leukopenia Current Visit: Yes Status: Acute Assessment and plan: Stable. Chronic. Previous oncology consult note reviewed. Qualifiers: Leukopenia type: neutropenia Neutropenia type: unspecified Qualified Code (s): D70.9 - Neutropenia, unspecified (5) Gastroenteritis Current Visit: Yes Status: Acute Assessment and plan: Stool study negative for C. difficile. Patient has no nausea vomiting or diarrhea now. Tolerate regular diabetic diet. Still weak, consult PTOT. (6) Conjunctivitis Current Visit: Yes Status: Acute Assessment and plan: Ciprofloxacin eyedrops. Improved after treatment Qualifiers: Conjunctivitis type: acute Acute conjunctivitis type: bacterial Laterality: right Qualified Code(s): H10.31 - Unspecified acute conjunctivitis , right eye (7) Rheumatoid arthritis Current Visit: Yes Status: Acute Assessment and plan: Figured out that she is not on chronic steroids. Continue home medication Qualifiers: Rheumatoid factor presence: unspecified presence Laterality: unspecified laterality Qualified Code(s): M06.9 - Rheumatoid arthritis, unspecified (8) Type 2 diabetes mellitus Current Visit: No Status: Chronic Assessment and plan: Patient is on metformin and glimepiride at home. Place patient on sliding scale coverage. 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 Urine Culture shows gram-positive cocci. Waiting for final result. Qualifiers: Urinary tract infection type: acute cystitis Hematuria presence: with hematuria Qualified Code(s): N30.01 - Acute cystitis with hematuria - Time Spent With Patient 25 - 35 minutes - Subjective Interval history: Patient is a 76-year-old female admitted for gastroenteritis. His past medical history is significant for rheumatoid arthritis, chronic leukocytopenia, anemia , diabetes, hypertension, chronic pancreas tail mass Patient was seen and examined. She is awake alert, oriented 3. Has mild b/l hand joint pain, controlled by pain medication. Denies nausea or vomiting, tolerated regular diet well. Still weak. Vitals stable. We will consult PTOT. Possibly need rehabilitation after discharge. - Constitutional Vitals: Temp Pulse Resp BP Pulse Ox 98.4 F 51 16 138/72 97 04/09/17 11:31 04/09/17 11:31 04/09/17 11:31 04/09/17 11:31 04/09/17 11:31 General appearance: Present: A&O X 3, no acute distress, answers questions appropriately - Head Head exam: Present: atraumatic, normocephalic - Eye Eye exam: Present: PERRL, conjuntiva pink, sclera anicteric Pupils: Present: PERRL - Neck Neck exam general surgery: Present: supple, trachea midline. Absent: lymphadenopathy - Respiratory Respiratory exam: Present: CTAB. Absent: accessory muscle use, rales, rhonchi, wheezes - Cardiovascular Cardiovascular exam: Present: RRR, +S1, +S2. Absent: diastolic murmur, gallop, rubs, systolic murmur - GI/Abdominal GI/Abdominal exam: Present: normal bowel sounds, soft, no peritoneal signs. Absent: distended, tenderness Additional comments: Colostomy bag in place - Extremities Exam Extremities exam: Present: warm, radial pulses palpable and symetrical. Absent : calf tenderness, cyanotic, pedal edema - Neurological Exam Neurological exam: Present: CN II-XII intact, oriented X3, no focal deficits. Absent: pronater drift, facial droop, speech deficit - Skin Skin exam: Present: dry, intact Internal Medicine: Result - Labs CBC & Chem 7: 04/08/17 10:55 04/08/17 10:55 - ABG Interpretation ABG results: PT/INR, D-dimer PT 11.8 Seconds (9.4-12.1) 04/06/17 07:50 - VTE Documentation of Mechanical Device: Graduated compression elastic hosiery Consult Discharge Plan - Plan Referrals: Philippe Scott Jr, MD [Primary Care Provider] -
[2017-04-09] MEDS: Levofloxacin 750 MG/150 ML 750 MG/150 ML BAG IVPB SCH (15:15)
[2017-04-10] MEDS: CALCIUM CITRATE 400 MG PO SCH ×2 (01:07→07:50)
[2017-04-10] MEDS: Ciprofloxacin OPTH Soln 2.5 ML BOTTLE RIGHT EYE SCH ×3 (01:08→07:50)
[2017-04-10] MEDS: *HR* Heparin 5,000 UNIT/ML VIAL SQ SCH (05:00)
[2017-04-10 05:40] LABS: Basophils % 1.8 %; Eosinophils # 0.5 K/mcL (0.0-0.6); Eosinophils % 20.7 %; Hematocrit 29.6 % (35.3-44.9); Hemoglobin 9.7 g/dL (11.5-15.4); Immature Granulocytes % 0.5 % (0-4); Mean Corpuscular HGB Conc 32.8 g/dL (31.6-35.5); Mean Corpuscular Volume 94.6 fL (83.0-100.0); Mean Platelet Volume 11.3 fL (9.4-12.4); Monocytes # 0.4 K/mcL (0.0-1.3); Monocytes % 17.6 %; Neutrophils # 0.3 K/mcL (1.6-8.9); Platelet Count 206 K/mcL (140-400); Red Blood Count 3.13 M/mcL (3.82-4.97); Red Cell Distribution Width 14.4 % (11.5-14.5); Segmented Neutrophils % 14.4 %
[2017-04-10 05:59] LABS: BUN/Creatinine Ratio 12 (6-26); Blood Urea Nitrogen 9 mg/dL (7-20); Calcium 9.4 mg/dL (8.6-10.8); Carbon Dioxide 26 mEq/L (19-29); Chloride 108 mEq/L (98-109); Glucose 102 mg/dL (70-99); Osmolality,Calculated 289 (280-300); Sodium 140 mEq/L (136-145); eGFR For African Americans > 60 (> 60); eGFR For Non-African Americans > 60 (> 60)
[2017-04-10 06:00] LABS: Potassium 4.1 mEq/L (3.5-4.5)
[2017-04-10 06:14] LABS: Platelet Estimate Normal (Normal)
[2017-04-10] MEDS: Insulin LISPRO 300 UNITS/3 ML VIAL SQ SCH ×2 (07:35→13:06)
[2017-04-10] MEDS: amLODIPine 5 MG TABLET PO SCH (07:48)
[2017-04-10] MEDS: FLUoxetine 20 MG CAPSULE PO SCH (07:48)
[2017-04-10] MEDS: Magnesium Oxide 400 MG TABLET PO SCH (07:49)
[2017-04-10] MEDS: Ascorbic Acid 500 MG TABLET PO SCH (07:49)
[2017-04-10] MEDS: Pantoprazole 40 MG VIAL IVP SCH (07:49)
[2017-04-10] MEDS: Cholecalciferol (D-3) 1,000 UNIT TABLET PO SCH (07:49)
[2017-04-10] MEDS: Sucralfate 1 GM TABLET PO SCH ×2 (07:49→13:06)
[2017-04-10 12:13] VITALS: BP 147/74
[2017-04-10] MEDS ORDERED: Ciprofloxacin OPTH Soln 2.5 ML BOTTLE RIGHT EYE SCH (12:42)
--- NOTE | 2017-04-10 13:19 | Discharge Summary ---
Date of Encounter: 04/10/17 Time of Encounter: 12:00 - Discharge Diagnosis (1) DVT prophylaxis Priority: Secondary Status: Acute (2) Hypertension Priority: Secondary Status: Chronic Qualifiers: Hypertension type: essential hypertension Qualified Code(s): I10 - Essential (primary) hypertension (3) History of colostomy Priority: Secondary Status: Acute (4) Leukopenia Priority: Secondary Status: Acute Qualifiers: Leukopenia type: neutropenia Neutropenia type: unspecified Qualified Code (s): D70.9 - Neutropenia, unspecified (5) Gastroenteritis Priority: Primary Status: Acute (6) Conjunctivitis Priority: Primary Status: Acute Qualifiers: Conjunctivitis type: acute Acute conjunctivitis type: bacterial Laterality: right Qualified Code(s): H10.31 - Unspecified acute conjunctivitis , right eye (7) Rheumatoid arthritis Priority: Secondary Status: Acute Qualifiers: Rheumatoid factor presence: unspecified presence Laterality: unspecified laterality Qualified Code(s): M06.9 - Rheumatoid arthritis, unspecified (8) Type 2 diabetes mellitus Priority: Secondary Status: Chronic Qualifiers: Diabetes mellitus complication status: with unspecified complications 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: without skilled nursing use Qualified Code( s): E11.8 - Type 2 diabetes mellitus with unspecified complications (9) UTI (urinary tract infection) Priority: Secondary Status: Acute Qualifiers: Urinary tract infection type: acute cystitis Hematuria presence: with hematuria Qualified Code(s): N30.01 - Acute cystitis with hematuria - Discharge Medications Prescriptions: RX: Ciprofloxacin OPTH Soln [Ciloxan OPTH Soln] 2 drop RIGHT EYE Q4HR #1 bottle RX: OxyCODONE Immed Rel [Roxicodone 5 MG] 5 mg PO Q4HR PRN #10 tablet PRN Reason: Pain Home Medications: RX: Glimepiride [Amaryl] 4 mg PO QAM 09/22/15 [History] RX: Metformin [Glucophage] 1,000 mg PO BID 09/22/15 [History] RX: Metoprolol [Lopressor] 25 mg PO BID 09/22/15 [History] RX: Omeprazole [PriLOSEC] 20 mg PO QAM 09/22/15 [History] RX: Amlodipine Besylate 10 mg PO DAILY 03/22/16 [History] RX: Potassium Chloride [K-Tab ER] 20 meq PO QPM 03/22/16 [History] RX: Calcium Citrate 400 mg PO TID 01/17/17 [History] RX: Cholecalciferol (D-3) [Vitamin D] 2,000 unit PO DAILY 01/17/17 [History] RX: Docusate [Colace] 100 mg PO BID 01/17/17 [History] RX: Metoclopramide HCl 5 mg PO TID 01/17/17 [History] RX: Sennosides [Senna] 8.6 mg PO BID 01/17/17 [History] RX: Ferrous Sulfate 325 mg PO DAILY@0800 #30 tablet 01/20/17 [Rx] RX: Ascorbate Calcium/Bioflavonoid [Gabriela-C 500 mg Tablet] 1 each PO DAILY 02/12 [History] RX: Multivitamin [Multi-Day Vitamins] 1 each PO DAILY 02/12/17 [History] RX: Nut.tx.gluc.intoler,Lac-Fr,Soy [Glucerna 1.5 Vicente] 237 ml PO BID 02/12/17 [ History] RX: Magnesium Oxide [Mag-Ox] 400 mg PO QAM #30 tablet 02/16/17 [Rx] RX: Miconazole 2% ointment [Aloe [place] Antifungal Ointment] 1 appl TP BID #1 tube 03/10/17 [Rx] Fluconazole [Diflucan] 100 mg PO DAILY #7 tablet 03/29/17 [Rx] RX: Alendronate Sodium [Fosamax] 70 mg PO QWEEK 04/06/17 [History] RX: FLUoxetine HCl [Prozac] 40 mg PO DAILY 04/06/17 [History] RX: Ciprofloxacin OPTH Soln [Ciloxan OPTH Soln] 2 drop RIGHT EYE Q4HR #1 bottle 04/10/17 [Rx] RX: OxyCODONE Immed Rel [Roxicodone 5 MG] 5 mg PO Q4HR PRN #10 tablet 04/10/17 [ Rx] Allergies/Adverse Reactions: Allergies RODGER Inhibitors Adverse Reaction (Verified 01/17/17 13:54) See Comments UNSURE ampicillin Adverse Reaction (Verified 01/17/17 13:54) See Comments lisinopril Adverse Reaction (Verified 01/17/17 13:54) See Comments Tetracycline Adverse Reaction (Verified 01/17/17 13:54) See Comments Date of admission: 04/06/17 10:07 Primary care physician: Philippe Scott Jr, MD Consults: 04/06/17 10:23 Consult to Wound Care [CONS] Routine Reason for Consult: Rizwana Gill for ostomy care Call Completed: No 04/06/17 10:42 Consult to Physical Therapy [CONS] Routine Comment: Evaluate, develop and implement POC Reason for Consult: placement 04/06/17 11:17 Consult to Invasive Line Access Team [CONS] Routine Reason for Consult: limited vascular access Line Type: EPIV 04/06/17 11:40 Consult to Nutrition [CONS] Routine Comment: Consulting Provider: NUTRITION Reason for Dietary Consult: MST Score Consult to Pastoral Services [CONS] Routine Comment: 04/06/17 13:30 Consult to Occupational Therapy [CONS] Routine Comment: Evaluate, develop and implement POC Reason for Consult: generalized weakness 04/06/17 13:31 Consult to Occupational Therapy [CONS] Routine Comment: Evaluate, develop and implement POC Reason for Consult: weakness 04/08/17 15:44 Consult to Lens Mold Setter [CONS] Routine Reason for SW Consult: Discharge planning. Patient considering rehab on discharge. Discharging clinician: Rashaad Pride Anticipated date of discharge: 04/10/17 - Patient Status Disposition: Transfer Inpatient Rehab Fac Condition: Fair Overall status at discharge: patient is back to baseline - Discharge Instructions Follow Up With: Philippe Scott Jr, MD [Primary Care Provider] - - Diet and Activity Activity: as per physical therapy Diet: diabetic diet Interval History: Ms. Hardy is a 76 year old female with past medical history of rheumatoid arthritis, chronic neutropenia, diabetes type 2 not insulin-dependent came to the emergency room complaining of 2 days of nausea and vomiting. She has a colostomy has not been putting out more stool. She says the pain happened and has been moderate. She was recently discharged from the hospital on February 16. A CT scan was done at the emergency room that shows bilateral renal stones, diverticulosis, a persistent and stable pancreatic mass that has been there for years, lesions on the left hepatic lobe and multiple small bowel adhesions without any sign of obstruction. Patient has not been able to keep anything down and is very dehydrated. Her magnesium is 0.8 glucose 177, she has not been able to take any of her medications, neutrophils are 1.5 and white blood cell count is 3.3. Heart rate was 90 blood pressure 146/83. Also, she has been complaining of right eye itchiness and pain for the past 2 weeks. Denies any other complaints, feels very weak Hospital course: Ms. Hardy is a 76 year old female admitted to the hospital for acute gastroenteritis. Patient was placed on nothing by mouth and IV fluid. Stool test that has been done and negative to C. difficile. Patient was found to UTI and treated there with Rocephin IV and finishthe three-day course. Patient also has conjunctivitis, improved after Cipro eye drip for treatment. After treatment the patient's symptoms had improved. Advanced to regular diet and she tolerated well. Patient is weak, PTOT evaluation suggested patient to discharge to rehabilitation. Patient will be discharged to rehabilitation today. I saw and examined the patient today. She is awake alert, oriented 3. Denies nausea, vomiting, abdominal pain, diarrhea. Her vitals are stable. Eye redness almost resolved. Patient is stable to transfer to rehabilitation for further management. - Time Spent with Patient Total time spent providing and/or coordinating discharge services: 40 min Greater than 30 minutes - Constitutional Vitals: Temp Pulse Resp BP Pulse Ox 98.2 F 60 20 147/74 97 04/10/17 12:11 04/10/17 12:11 04/10/17 12:11 04/10/17 12:11 04/10/17 12:11 General appearance: Present: A&O X 3, no acute distress, answers questions appropriately - Head Head exam: Present: atraumatic, normocephalic - Eye Eye exam: Present: PERRL, conjuntiva pink, sclera anicteric Pupils: Present: PERRL - Neck Neck exam general surgery: Present: supple, trachea midline. Absent: lymphadenopathy - Respiratory Respiratory exam: Present: CTAB. Absent: accessory muscle use, rales, rhonchi, wheezes - Cardiovascular Cardiovascular exam: Present: RRR, +S1, +S2. Absent: diastolic murmur, gallop, rubs, systolic murmur - GI/Abdominal GI/Abdominal exam: Present: normal bowel sounds, soft, no peritoneal signs. Absent: distended, tenderness Additional comments: Colestomy bag in place - Extremities Exam Extremities exam: Present: warm, radial pulses palpable and symetrical. Absent : calf tenderness, cyanotic, pedal edema - Neurological Exam Neurological exam: Present: CN II-XII intact, oriented X3, no focal deficits. Absent: pronater drift, facial droop, speech deficit - Skin Skin exam: Present: dry, intact - VTE Documentation of Mechanical Device: Graduated compression elastic hosiery
--- NOTE | 2017-04-10 13:28 | Physician Discharge Referral ---
[facility] Referral Info Transfer To: Rehab Provider in Charge after Transfer: Other - Diagnosis (1) DVT prophylaxis Status: Acute (2) Hypertension Status: Chronic (3) History of colostomy Status: Acute (4) Leukopenia Status: Acute (5) Gastroenteritis Status: Acute (6) Conjunctivitis Status: Acute (7) Rheumatoid arthritis Status: Acute (8) Type 2 diabetes mellitus Status: Chronic (9) UTI (urinary tract infection) Status: Acute - Transfer Medications Prescriptions: Ciprofloxacin OPTH Soln [Ciloxan OPTH Soln] 2 drop RIGHT EYE Q4HR #1 bottle OxyCODONE Immed Rel [Roxicodone 5 MG] 5 mg PO Q4HR PRN #10 tablet PRN Reason: Pain Home Medications: Glimepiride [Amaryl] 4 mg PO QAM 09/22/15 [History] Metformin [Glucophage] 1,000 mg PO BID 09/22/15 [History] Metoprolol [Lopressor] 25 mg PO BID 09/22/15 [History] Omeprazole [PriLOSEC] 20 mg PO QAM 09/22/15 [History] Amlodipine Besylate 10 mg PO DAILY 03/22/16 [History] Potassium Chloride [K-Tab ER] 20 meq PO QPM 03/22/16 [History] Calcium Citrate 400 mg PO TID 01/17/17 [History] Cholecalciferol (D-3) [Vitamin D] 2,000 unit PO DAILY 01/17/17 [History] Docusate [Colace] 100 mg PO BID 01/17/17 [History] Metoclopramide HCl 5 mg PO TID 01/17/17 [History] Sennosides [Senna] 8.6 mg PO BID 01/17/17 [History] Ferrous Sulfate 325 mg PO DAILY@0800 #30 tablet 01/20/17 [Rx] Ascorbate Calcium/Bioflavonoid [Gabriela-C 500 mg Tablet] 1 each PO DAILY 02/12/17 [History] Multivitamin [Multi-Day Vitamins] 1 each PO DAILY 02/12/17 [History] Nut.tx.gluc.intoler,Lac-Fr,Soy [Glucerna 1.5 Vicente] 237 ml PO BID 02/12/17 [ History] Magnesium Oxide [Mag-Ox] 400 mg PO QAM #30 tablet 02/16/17 [Rx] Miconazole 2% ointment [Aloe [place] Antifungal Ointment] 1 appl TP BID #1 tube [Rx] Fluconazole [Diflucan] 100 mg PO DAILY #7 tablet 03/29/17 [Rx] Alendronate Sodium [Fosamax] 70 mg PO QWEEK 04/06/17 [History] FLUoxetine HCl [Prozac] 40 mg PO DAILY 04/06/17 [History] Ciprofloxacin OPTH Soln [Ciloxan OPTH Soln] 2 drop RIGHT EYE Q4HR #1 bottle [Rx] OxyCODONE Immed Rel [Roxicodone 5 MG] 5 mg PO Q4HR PRN #10 tablet 04/10/17 [Rx] Allergies/Adverse Reactions: Allergies RODGER Inhibitors Adverse Reaction (Verified 01/17/17 13:54) See Comments UNSURE ampicillin Adverse Reaction (Verified 01/17/17 13:54) See Comments lisinopril Adverse Reaction (Verified 01/17/17 13:54) See Comments Tetracycline Adverse Reaction (Verified 01/17/17 13:54) See Comments - Respiratory Orders Smoking Cessation: Smoking cessation has been advised. For more information, call the [place] Tobacco Quit Line at 0-143-CVYRNOW. - Advance Directives Code Status: DNR-Arrest/Don't Intubate - Rehabiliation Orders Rehab Orders: Evaluation for Physical Therapy, Evaluation for Occupational Therapy - Diet Orders No Concentrated Sweets CERTIFICATION: I certify that the transfer of the above named patient to an Extended Care Facility is necessary for the continuing treatment of the diagnosis listed. The above information is true and accurate reflection of patient's current condition. Confidential - Redisclosure prohibited without a patient's written consent.
== END 2017-04-10 15:31 ==
LOC: 3ANU 07:22 → EMEROO 07:22 → 3ANU 10:45
PROVIDERS: ADMIT Internal Medicine; ATTEND Internal Medicine

== ENCOUNTER 2017-05-25 15:28 | Inpatient (IN) ==
[2017-05-25] MEDS ORDERED: 0.9 % Sodium Chloride 250 ML IVC ONE (16:15)
[2017-05-25] MEDS ORDERED: D5% in 0.45% NACL 1,000 ML IVC SCH (16:15)
[2017-05-25 16:51] LABS: Hematocrit 35.5 % (35.3-44.9); Hemoglobin 11.7 g/dL (11.5-15.4); Mean Corpuscular Volume 93.9 fL (83.0-100.0); Mean Platelet Volume 10.7 fL (9.4-12.4); Platelet Count 231 K/mcL (140-400); Red Blood Count 3.78 M/mcL (3.82-4.97); Red Cell Distribution Width 12.7 % (11.5-14.5)
[2017-05-25 17:18] LABS: BUN/Creatinine Ratio 18 (6-26); Blood Urea Nitrogen 15 mg/dL (7-20); Calcium 10.2 mg/dL (8.6-10.8); Carbon Dioxide 27 mEq/L (19-29); Chloride 103 mEq/L (98-109); Glucose 144 mg/dL (70-99); Osmolality,Calculated 283 (280-300); Potassium 4.7 mEq/L (3.5-4.5); Sodium 135 mEq/L (136-145); eGFR For African Americans > 60 (> 60); eGFR For Non-African Americans > 60 (> 60)
[2017-05-25] MEDS: Fluconazole 100 MG/50 ML 100 MG/50 ML BAG IVPB SCH (17:28)
[2017-05-25 19:58] LABS: Bilirubin,Urine Small (Negative); Blood,Urine Large (Negative); Clarity,Urine Cloudy (Clear); Color,Urine Dark Yellow (Yellow); Glucose,Urine (UA) Normal (Normal); Ketones,Urine Negative (Negative); Leukocyte Esterase,Urine Trace (Negative); Nitrite,Urine Negative (Negative); Protein,Urine 100 mg/dL (Neg-Trace); Specific Gravity,Urine 1.028 (1.010-1.025); Urobilinogen,Urine Normal (Normal)
[2017-05-25 20:00] LABS: Bacteria,Urine None Seen per hpf (None-Few); Hyaline Casts,Urine None Seen per lpf (None-Few); RBC,Urine 50-100 per hpf (0-3); Squamous Epithelial Cell,Urine Many per lpf (None-Few)
[2017-05-25] MEDS ORDERED: *HR* Dextrose 50 % in Water (Syg) 50 ML SYRINGE IVP PRN (20:18)
[2017-05-25] MEDS ORDERED: D5% in Water 1,000 ML IVC PRN (20:18)
[2017-05-25] MEDS ORDERED: Dextrose Gel 15 GM PO PRN ×2 (20:18)
[2017-05-25] MEDS ORDERED: Naloxone 0.4 MG/ML INJ IVP PRN (20:18)
--- NOTE | 2017-05-25 20:34 | Internal Med History&Physical ---
Date of Encounter: 05/25/17 Time of Encounter: 19:50 Assessment and Plan (1) Fungal dermatitis Current visit: Yes Status: Acute 1. No sign of cellulitis right now. 2. Will hold off antibiotics, but I will order blood cultures and monitor clinically. 3. Will treat with IV Diflucan and topical Ketoconazole cream. 4. May need ID consult if fails to improve. (2) Leukopenia Current visit: Yes Status: Chronic 1. Consult Hem/Onc for guidance regarding leukopenia. 2. Trend daily CBC's. Qualifiers: Leukopenia type: unspecified Qualified Code(s): D72.819 - Decreased white blood cell count, unspecified (3) Type 2 diabetes mellitus Current visit: Yes Status: Chronic 1. Hold Metformin while in hospital. 2. Will use low dose SSI and adjust accordingly. Qualifiers: Diabetes mellitus complication status: without complication Diabetes mellitus detention insulin use: without detention use Qualified Code(s): E11.9 - Type 2 diabetes mellitus without complications (4) DVT prophylaxis Current visit: Yes Status: Acute 1. Heparin SQ. Internal Medicine - H&P: HPI Chief complaint: worsening fungal rash Admitted From: Direct Admit Plans for Post Hospital Care: Home History of present illness: Ms. Hardy is a 76 year old female who was directly admitted today from Dr. Nolen's office for concerns of a worsening fungal rash. She was following up with Dr. Nolen today regarding her colostomy when patient and Dr. Nolen noted that her fungal rash had worsened despite outpatient treatment. Because of her chronic comorbidities and underlying chronic leukopenia, Dr. Nolen requested patient be directly admitted to hospitalist service for further workup and care. Upon my assessment of the patient, she states she has had this rash for weeks and months without relief. She has tried different oral antifungals and antifungal creams without relief. She denies any fevers, chills, or body aches. She denies any history of opportunistic infections, but she states she has had Neupogen shots in the past for treatment of her leukopenia. She follows with [facility] here regarding her chronic leukopenia. She is also diabetic and states her glucoses have been relatively stable on oral medications. She does not take insulin. She denies any recent ill contacts. Other than her persistent and worsening fungal rash, she has no current complaints or concerns. Past Med Surg Social Fam HX - Past Medical History Attestation: Yes The following information was validated with the patient. Source: patient, old records reviewed Medical history: arthritis, diabetes, GERD, hypertension, kidney stones, osteoporosis, RA, renal disease, valvular heart disease, other (chronic leukopenia) Psychiatric history: anxiety, depression - Past Surgical History Surgical History: cholecystectomy, colectomy, colostomy, herniorrhaphy, knee replacement, ureteral stent - Social History Smoking Status: Never smoker Smokeless Tobacco Status: No Alcohol use: none Drug use: none Current living situation: Home, With Family Activity Level: Independent ambulation - Family History Son Adopted: No Living Status: Still Living Hx Family Cardiac Disorders: No Hx Family Respiratory Disorders: Yes Hx Family Cancer: No Hx Family GI Disorders: No Hx Family Endocrine Disorder: No Hx Family Neuromuscular Disorders: No Hx Family Neurologic Disorders: No Hx Family HEENT Disorders: No Hx Family Autoimmune Disorders: Yes (Autoimmune dx, unable to remember name) - Additional Family History Additional family history: No h/o blood disorders Internal Medicine - H&P: Meds Glimepiride [Amaryl] 4 mg PO QAM 09/22/15 [History] Metformin [Glucophage] 1,000 mg PO BID 09/22/15 [History] Metoprolol [Lopressor] 25 mg PO BID 09/22/15 [History] Omeprazole [PriLOSEC] 20 mg PO QAM 09/22/15 [History] Amlodipine Besylate 10 mg PO DAILY 03/22/16 [History] Potassium Chloride [K-Tab ER] 20 meq PO QPM 03/22/16 [History] Calcium Citrate 400 mg PO TID 01/17/17 [History] Cholecalciferol (D-3) [Vitamin D] 2,000 unit PO DAILY 01/17/17 [History] Docusate [Colace] 100 mg PO BID 01/17/17 [History] Metoclopramide HCl 5 mg PO TID 01/17/17 [History] Sennosides [Senna] 8.6 mg PO BID 01/17/17 [History] Ferrous Sulfate 325 mg PO DAILY@0800 #30 tablet 01/20/17 [Rx] Ascorbate Calcium/Bioflavonoid [Gabriela-C 500 mg Tablet] 1 each PO DAILY 02/12/17 [History] Multivitamin [Multi-Day Vitamins] 1 each PO DAILY 02/12/17 [History] Nut.tx.gluc.intoler,Lac-Fr,Soy [Glucerna 1.5 Vicente] 237 ml PO BID 02/12/17 [ History] Magnesium Oxide [Mag-Ox] 400 mg PO QAM #30 tablet 02/16/17 [Rx] Miconazole 2% ointment [Aloe [place] Antifungal Ointment] 1 appl TP BID #1 tube [Rx] Fluconazole [Diflucan] 100 mg PO DAILY #7 tablet 03/29/17 [Rx] Alendronate Sodium [Fosamax] 70 mg PO QWEEK 04/06/17 [History] FLUoxetine HCl [Prozac] 40 mg PO DAILY 04/06/17 [History] Ciprofloxacin OPTH Soln [Ciloxan OPTH Soln] 2 drop RIGHT EYE Q4HR #1 bottle [Rx] OxyCODONE Immed Rel [Roxicodone 5 MG] 5 mg PO Q4HR PRN #10 tablet 04/10/17 [Rx] Cephalexin [Keflex] 500 mg PO QID 7 Days 05/12/17 [Rx] Ondansetron ODT [Zofran ODT] 4 mg SL Q6HR #10 tab.rapdis 05/12/17 [Rx] Ondansetron [Zofran ODT] 8 mg SL Q4HR #14 tab.rapdis 05/19/17 [Rx] metroNIDAZOLE [Flagyl] 500 mg PO TID #30 tablet 05/19/17 [Rx] Allergies RODGER Inhibitors Adverse Reaction (Verified 01/17/17 13:54) See Comments UNSURE ampicillin Adverse Reaction (Verified 01/17/17 13:54) See Comments lisinopril Adverse Reaction (Verified 01/17/17 13:54) See Comments Tetracycline Adverse Reaction (Verified 01/17/17 13:54) See Comments - Constitutional Constitutional: no chills, no fever(s), no night sweats - EENT Eyes: no blurry vision, no change in vision Ears: no ear pain, no tinnitus Nose, mouth and throat: no nasal congestion, no sinus pressure, no sore throat - Cardiovascular Cardiovascular ROS IM: no chest pain, no dyspnea, no dyspnea on exertion, no edema - Respiratory Respiratory: no cough, no dyspnea, no hemoptysis - Gastrointestinal Gastrointestinal: no abdominal pain, no diarrhea, no hematemesis, no hematochezia, no melena, no vomiting - Genitourinary Genitourinary: no dysuria, no flank pain, no hematuria - Musculoskeletal Musculoskeletal ROS IM: arthralgias, back pain - Integumentary Integumentary IM: erythema, rash (fungal/excoriated ) - Neurological Neurological ROS: no dizziness, no focal weakness, no frequent falls, no headache(s) - Psychiatric Psychiatric: no anxiety, no depression - Endocrine Endocrine IM: no polydipsia, no polyuria - Hematologic/Lymphatic Hematologic/Lymphatic: no easy bruising, no lymphadenopathy - Allergic/Immunologic Allergic/Immunologic: no wheezing, no GI upset with certain foods - Constitutional Vitals: Temp Pulse Resp BP Pulse Ox 99.0 F 68 18 149/83 99 05/25/17 15:53 05/25/17 15:53 05/25/17 15:53 05/25/17 15:53 05/25/17 15:53 General appearance: Present: cooperative, A&O X 3, pleasant, no acute distress - Head Head exam: Present: atraumatic, normal inspection - Expanded Head Exam Head exam expanded: Absent: general tenderness - Eye Eye exam: Present: EOMI, normal appearance, PERRL. Absent: scleral icterus Pupils: Present: normal accommodation - ENT ENT exam: Present: mucous membranes moist, normal exam Additional comments: NO thrush appreciated - Neck Neck exam general surgery: Present: full ROM, supple. Absent: lymphadenopathy, tenderness - Expanded Neck Exam Neck exam: Absent: carotid bruit - Respiratory Respiratory exam: Present: CTAB. Absent: rales, respiratory distress, rhonchi, wheezes - Cardiovascular Cardiovascular exam: Present: RRR, +S1, +S2. Absent: diastolic murmur, systolic murmur - GI/Abdominal GI/Abdominal exam: Present: normal bowel sounds, soft. Absent: hepatomegaly, mass, splenomegaly, tenderness - Extremities Exam Extremities exam: Present: warm. Absent: calf tenderness, joint swelling, pedal edema - Back Exam Back exam: Absent: CVA tenderness (L), CVA tenderness (R) - Neurological Exam Neurological exam: Present: alert, CN II-XII intact, oriented X3, no focal deficits - Psychiatric Psychiatric exam: Present: normal affect, normal mood - Skin Skin exam: Present: erythema, excoriation, rash (excoriated fungal rash under breasts, along colostomy site, and unguinal folds), warm. Absent: abrasion, petechiae, urticaria, vesicles Internal Med - H&P Results - Labs CBC & Chem 7: 05/25/17 16:40 05/25/17 16:40 Labs: Short CBC 05/25/17 Range/Units 16:40 WBC 1.8 L (4.3-11.1) K/mcL Hgb 11.7 (11.5-15.4) g/dL Hct 35.5 (35.3-44.9) % Plt Count 231 (140-400) K/mcL BMP 05/25/17 16:40 Sodium 135 L Potassium 4.7 H Chloride 103 Carbon Dioxide 27 BUN 15 Creatinine 0.84 Glucose 144 H Calcium 10.2 Urine 05/25/17 Range/Units 19:35 Urine Color Dark Yellow (Yellow) Urine Clarity Cloudy A (Clear) Urine pH 6.0 (5.0-8.0) pH Units Ur Specific [place] 1.028 H (1.010-1.025) Urine Protein 100 H (Neg-Trace) mg/dL Urine Glucose (UA) Normal (Normal) mg/dL
[2017-05-25] MEDS: *HR* Heparin 5,000 UNIT/ML VIAL SQ SCH (21:38)
[2017-05-25] MEDS: Nystatin POWDER 30 GM BOTTLE TP SCH (21:39)
[2017-05-25] MEDS: Ketoconazole 2% CRM 15 GM TUBE TP SCH (21:39)
[2017-05-25 22:49] LABS: Hemoglobin A1C 5.8 %
[2017-05-26] MEDS: *HR* Heparin 5,000 UNIT/ML VIAL SQ SCH ×2 (05:48→20:11)
[2017-05-26] MEDS: D5% in 0.45% NACL 1,000 ML IVC SCH ×3 (06:43→22:08)
[2017-05-26 07:09] LABS: Hemoglobin 11.2 g/dL (11.5-15.4)
[2017-05-26 07:10] LABS: Hematocrit 34.4 % (35.3-44.9); Mean Corpuscular HGB Conc 32.6 g/dL (31.6-35.5); Mean Corpuscular Volume 95.3 fL (83.0-100.0); Platelet Count 212 K/mcL (140-400); Red Blood Count 3.61 M/mcL (3.82-4.97); Red Cell Distribution Width 12.8 % (11.5-14.5)
[2017-05-26 07:11] LABS: INR 1.1; Prothrombin Time 11.9 Seconds (9.4-12.1)
[2017-05-26 07:13] LABS: Activated Partial Thrombo Time 33.6 Seconds (26.0-36.0)
[2017-05-26 07:20] LABS: Alanine Aminotransferase 10 Units/L (0-55); Albumin 2.6 g/dL (3.5-5.0); Albumin/Globulin Ratio 0.7 (1.1-2.2); Alkaline Phosphatase 81 Units/L (38-126); Aspartate Amino Transferase 13 Units/L (5-34); BUN/Creatinine Ratio 14 (6-26); Bilirubin,Total 0.5 mg/dL (0.2-1.2); Blood Urea Nitrogen 12 mg/dL (7-20); Calcium 9.9 mg/dL (8.6-10.8); Carbon Dioxide 28 mEq/L (19-29); Chloride 102 mEq/L (98-109); Globulin 3.6 g/dL (2.4-3.5); Glucose 150 mg/dL (70-99); Magnesium 1.2 mg/dL (1.6-2.6); Osmolality,Calculated 283 (280-300); Potassium 4.3 mEq/L (3.5-4.5); Sodium 135 mEq/L (136-145); Total Protein 6.2 g/dL (6.0-8.3); eGFR For African Americans > 60 (> 60); eGFR For Non-African Americans > 60 (> 60)
[2017-05-26] MEDS ORDERED: *HR* Metformin 500 MG TABLET PO SCH (08:00)
[2017-05-26] MEDS: FLUoxetine 20 MG CAPSULE PO SCH (08:21)
[2017-05-26] MEDS: *HR* Glimepiride 4 MG TABLET PO SCH (08:21)
[2017-05-26] MEDS: Fluconazole 100 MG/50 ML 100 MG/50 ML BAG IVPB SCH (08:21)
[2017-05-26] MEDS: amLODIPine 5 MG TABLET PO SCH (08:21)
[2017-05-26] MEDS: Insulin LISPRO 300 UNITS/3 ML VIAL SQ SCH ×3 (08:22→20:11)
[2017-05-26] MEDS: Ketoconazole 2% CRM 15 GM TUBE TP SCH ×2 (08:25→20:18)
[2017-05-26] MEDS: Nystatin POWDER 30 GM BOTTLE TP SCH ×2 (08:26→20:18)
[2017-05-26 09:08] LABS: Platelet Estimate Normal (Normal)
[2017-05-26 09:09] LABS: Eosinophils # 0.5 K/mcL (0.0-0.6)
[2017-05-26 09:10] LABS: Neutrophils # 0.2 K/mcL (1.6-8.9)
--- NOTE | 2017-05-26 10:07 | Oncology Inp Consult Note ---
Date of Encounter: 05/26/17 Time of Encounter: 09:45 Assessment and Plan (1) Leukopenia Status: Acute Assessment and plan: Ms. 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 Neutropenia is quite severe and she has not had significant complications related to this. 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 In either case, I would utilize Neupogen 300 g daily to obtain an ANC of 1500 to help her contend with this infection given the severity of her rash and the severity of her neutropenia. I have ordered this starting today. If still hospitalized, we can send peripheral blood flow cytometry this coming week for LGL leukemia. Treatment will not be altered even if she has this is ordered. Qualifiers: Leukopenia type: neutropenia Neutropenia type: unspecified Qualified Code (s): D70.9 - Neutropenia, unspecified (2) Fungal dermatitis Status: Acute Assessment and plan: She is under the excellent care of the hospitalist with broad-spectrum antifungals. We will defer management to the primary team. - Data of Consult Requesting Physician: Billy Laurent DO Primary Care Provider: PCP NO - Consult Narrative Reason for consult: Chronic neutropenia History of present illness: Ms. Hardy is a 76 year old female with a long-standing history of rheumatoid arthritis was found to have leukopenia and neutropenia dating back to 2000. She has not had significant complications related to neutropenia despite its severity over the years. She does have rheumatoid arthritis. She has been treated with methotrexate and possibly Humira/Remicade in the past but is not off therapy for "years". For the past few months, she has developed a worsening intertriginous rash under her breasts as well as about her ostomy in the left belly which has persisted and worsened despite topical therapies. She has been admitted for IV antibiotic management given the progression. Patient has a long-standing history of chronic neutropenia. She is not had issues with recurrent infections despite this. She has received Neupogen in the past which was well-tolerated. She denies any fever chills or signs of systemic infection at current. We are asked to consult to consider Neupogen given the severity of her rash and neutropenia. Her CBC is more able to white count of 1700 with 200 neutrophils, hemoglobin 11.2 and platelet count 212,000 Past Med Surg Social Fam HX - Past Medical History Medical history: arthritis, diabetes, GERD, hypertension, kidney stones, osteoporosis, RA, renal disease, valvular heart disease, other (chronic leukopenia) Psychiatric history: anxiety, depression - Past Surgical History Surgical History: cholecystectomy, colectomy, colostomy, herniorrhaphy, knee replacement, ureteral stent - Social History Smoking Status: Never smoker Smokeless Tobacco Status: No Alcohol use: none Drug use: none - Family History Son Adopted: No Living Status: Still Living Hx Family Cardiac Disorders: No Hx Family Respiratory Disorders: Yes Hx Family Cancer: No Hx Family GI Disorders: No Hx Family Endocrine Disorder: No Hx Family Neuromuscular Disorders: No Hx Family Neurologic Disorders: No Hx Family HEENT Disorders: No Hx Family Autoimmune Disorders: Yes (Autoimmune dx, unable to remember name) Medications and Allergies Glimepiride [Amaryl] 4 mg PO QAM 09/22/15 [History] Metformin [Glucophage] 1,000 mg PO BID 09/22/15 [History] Metoprolol [Lopressor] 25 mg PO BID 09/22/15 [History] Omeprazole [PriLOSEC] 20 mg PO QAM 09/22/15 [History] Amlodipine Besylate 10 mg PO DAILY 03/22/16 [History] Potassium Chloride [K-Tab ER] 20 meq PO QPM 03/22/16 [History] Calcium Citrate 400 mg PO TID 01/17/17 [History] Cholecalciferol (D-3) [Vitamin D] 2,000 unit PO DAILY 01/17/17 [History] Docusate [Colace] 100 mg PO BID 01/17/17 [History] Metoclopramide HCl 5 mg PO TID 01/17/17 [History] Sennosides [Senna] 8.6 mg PO BID 01/17/17 [History] Ferrous Sulfate 325 mg PO DAILY@0800 #30 tablet 01/20/17 [Rx] Ascorbate Calcium/Bioflavonoid [Gabriela-C 500 mg Tablet] 1 each PO DAILY 02/12/17 [History] Multivitamin [Multi-Day Vitamins] 1 each PO DAILY 02/12/17 [History] Nut.tx.gluc.intoler,Lac-Fr,Soy [Glucerna 1.5 Vicente] 237 ml PO BID 02/12/17 [ History] Magnesium Oxide [Mag-Ox] 400 mg PO QAM #30 tablet 02/16/17 [Rx] Miconazole 2% ointment [Aloe [place] Antifungal Ointment] 1 appl TP BID #1 tube [Rx] Fluconazole [Diflucan] 100 mg PO DAILY #7 tablet 03/29/17 [Rx] Alendronate Sodium [Fosamax] 70 mg PO QWEEK 04/06/17 [History] FLUoxetine HCl [Prozac] 40 mg PO DAILY 04/06/17 [History] Ciprofloxacin OPTH Soln [Ciloxan OPTH Soln] 2 drop RIGHT EYE Q4HR #1 bottle [Rx] OxyCODONE Immed Rel [Roxicodone 5 MG] 5 mg PO Q4HR PRN #10 tablet 04/10/17 [Rx] Cephalexin [Keflex] 500 mg PO QID 7 Days 05/12/17 [Rx] Ondansetron ODT [Zofran ODT] 4 mg SL Q6HR #10 tab.rapdis 05/12/17 [Rx] Ondansetron [Zofran ODT] 8 mg SL Q4HR #14 tab.rapdis 05/19/17 [Rx] metroNIDAZOLE [Flagyl] 500 mg PO TID #30 tablet 05/19/17 [Rx] Allergies RODGER Inhibitors Adverse Reaction (Verified 01/17/17 13:54) See Comments UNSURE ampicillin Adverse Reaction (Verified 01/17/17 13:54) See Comments lisinopril Adverse Reaction (Verified 01/17/17 13:54) See Comments Tetracycline Adverse Reaction (Verified 01/17/17 13:54) See Comments All systems: reviewed and no additional remarkable complaints except as stated Constitutional: Present: fatigue, lethargy, weakness Eyes: Present: as per HPI Ears: Present: as per HPI Nose, mouth and throat: Present: dry mouth Cardiovascular: Present: as per HPI Respiratory: Present: dyspnea Gastrointestinal: Present: abdominal pain (About her colostomy) Musculoskeletal: Present: deformity, limited range of motion Integumentary: Present: lesions, non-healing lesions, wounds Neurological: Present: as per HPI Oncology - Exam - Constitutional Vitals: Temp Pulse Resp BP Pulse Ox 97.5 F L 104 20 182/91 91 05/26/17 07:29 07/15/17 07:29 05/26/17 07:29 05/26/17 07:29 05/26/17 07:29 - Head Head exam: Present: atraumatic, normal inspection, normocephalic - Eye Eye exam: Present: conjuntiva pink, sclera anicteric - ENT ENT exam: Present: mucous membranes moist, normal oropharynx - Neck Neck exam: Present: full ROM, normal inspection - Respiratory Respiratory exam: Present: CTAB - Cardiovascular Cardiovascular exam: Present: RRR - GI/Abdominal GI/Abdominal exam: Present: normal bowel sounds, soft - Extremities Exam Extremities exam: Present: normal inspection, pedal edema - Neurological Exam Neurological exam: Present: alert, CN II-XII intact, oriented X3 - Skin Skin exam: Present: rash (erythmatous, crusting rash under both breasts and about colostomy site) Oncology - Results - Labs Labs: Short CBC 05/25/17 05/26/17 Range/Units 16:40 06:31 WBC 1.8 L 1.7 L (4.3-11.1) K/mcL Hgb 11.7 11.2 L (11.5-15.4) g/dL Hct 35.5 34.4 L (35.3-44.9) % Plt Count 231 212 (140-400) K/mcL Neutrophils # 0.2 L (1.6-8.9) K/mcL BMP 05/25/17 05/26/17 16:40 06:31 Sodium 135 L 135 L Potassium 4.7 H 4.3 Chloride 103 102 Carbon Dioxide 27 28 BUN 15 12 Creatinine 0.84 0.84 Glucose 144 H 150 H Calcium 10.2 9.9 Liver Function 05/26/17 Range/Units 06:31 Total Bilirubin 0.5 (0.2-1.2) mg/dL AST 13 (5-34) Units/L ALT 10 (0-55) Units/L Alkaline Phosphatase 81 (38-126) Units/L Albumin 2.6 L (3.5-5.0) g/dL Urine 05/25/17 Range/Units 19:35 Urine Color Dark Yellow (Yellow) Urine Clarity Cloudy A (Clear) Urine pH 6.0 (5.0-8.0) pH Units Ur Specific [place] 1.028 H (1.010-1.025) Urine Protein 100 H (Neg-Trace) mg/dL Urine Glucose (UA) Normal (Normal) mg/dL Consult Discharge Plan - Plan Referrals: Philippe Scott Jr, MD [Partnered Physician] -
--- NOTE | 2017-05-26 14:04 | Internal Med Progress Note ---
<Vincenzo Allen - Last Filed: 05/26/17 15:57> Date of Encounter: 05/26/17 Time of Encounter: 12:00 - Assessment and plan (1) Fungal dermatitis Current Visit: Yes Status: Acute Assessment and plan: Appears to have a fungal rash under both breasts and around ostomy. Patient also leukopenic and will need to improve her WBC in order to adequately fight the infection. Patient placed on IV fluconazole Topical Nystatin and ketoconazole Appreciate continued heme/onc assistance in the management and care of the patient IVF have been stopped as the patient is tolerating PO (2) Chronic neutropenia Current Visit: No Status: Chronic Assessment and plan: Patient seen by hematology/oncology earlier today. She has been undergoing workup for this as an outpatient. 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 Heme/Onc plans to start neupogen with the goal of getting her neutrophils above 1500. 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 She reports weakness likely on account of her recent decreased PO from nausea and vomiting. Will consult PT/OT (5) Hypertension Current Visit: No Status: Chronic Assessment and plan: Patient has been having some elevated blood pressures Continue home medications of metoprolol and amlodipine Consider increasing dosages if continued hypertension see while inpatient Qualifiers: Hypertension type: essential hypertension Qualified Code(s): I10 - Essential (primary) hypertension (6) Type 2 diabetes mellitus Current Visit: No Status: Chronic Assessment and plan: Will hold her metformin, but continue her Glimepiride Start insulin sliding scale monitor patient blood glucose diabetic diet Qualifiers: Diabetes mellitus complication status: with unspecified complications Diabetes mellitus computer terminal operator insulin use: without computer terminal operator use Qualified Code( s): E11.8 - Type 2 diabetes mellitus with unspecified complications (7) DVT prophylaxis Current Visit: No Status: Acute Assessment and plan: Heparin SQ BID - Subjective Interval history: Patient reports having some episode of nausea and vomiting. Today she reports that she has continued burning pain in the sites of her fungal infections ( under both breasts and by her ostomy). She denies fever, but does report feeling cold at times. - Constitutional Vitals: Temp Pulse Resp BP Pulse Ox 98.0 F 58 18 153/70 95 05/26/17 10:50 05/26/17 10:50 05/26/17 10:50 05/26/17 10:50 05/26/17 10:50 General appearance: Present: cooperative, A&O X 3, pleasant, no acute distress Exam: General: Cooperative, pleasant, no acute distress, alert and oriented 3, answers questions appropriately HEENT: Normocephalic, atraumatic, Conjunctiva pink, sclera anicteric, oral mucosa moist, no orophargeal erythema or exudates Respiratory: No accessory muscle usage, clear to auscultation bilaterally, no wheezes/rhonchi/rales appreciated Cardiovascular: Regular rate and rhythm, S1 and S2 present, no murmurs/rubs/ gallops/clicks appreciated GI/abdominal: Nondistended, nontender, soft, normal bowel sounds, no peritoneal signs Extremities: No calf tenderness, noncyanotic, no pedal edema appreciated, warm, lower extremity pulses palpable and symmetrical Neurological: Alert and oriented 3, no facial droop, no focal deficits Skin: Area under both breasts is erythematous with satellite lesions, area extending in 10 cm in radius around stoma appears erythematous Internal Medicine: Result - Labs CBC & Chem 7: 05/26/17 06:31 05/26/17 06:31 Labs: Short CBC 05/25/17 05/26/17 Range/Units 16:40 06:31 WBC 1.8 L 1.7 L (4.3-11.1) K/mcL Hgb 11.7 11.2 L (11.5-15.4) g/dL Hct 35.5 34.4 L (35.3-44.9) % Plt Count 231 212 (140-400) K/mcL Neutrophils # 0.2 L (1.6-8.9) K/mcL BMP 05/25/17 05/26/17 16:40 06:31 Sodium 135 L 135 L Potassium 4.7 H 4.3 Chloride 103 102 Carbon Dioxide 27 28 BUN 15 12 Creatinine 0.84 0.84 Glucose 144 H 150 H Calcium 10.2 9.9 Liver Function 05/26/17 Range/Units 06:31 Total Bilirubin 0.5 (0.2-1.2) mg/dL AST 13 (5-34) Units/L ALT 10 (0-55) Units/L Alkaline Phosphatase 81 (38-126) Units/L Albumin 2.6 L (3.5-5.0) g/dL Urine 05/25/17 Range/Units 19:35 Urine Color Dark Yellow (Yellow) Urine Clarity Cloudy A (Clear) Urine pH 6.0 (5.0-8.0) pH Units Ur Specific [place] 1.028 H (1.010-1.025) Urine Protein 100 H (Neg-Trace) mg/dL Urine Glucose (UA) Normal (Normal) mg/dL - ABG Interpretation ABG results: PT/INR, D-dimer PT 11.9 Seconds (9.4-12.1) 05/26/17 06:31 Consult Discharge Plan - Plan Referrals: Philippe Scott Jr, MD [Partnered Physician] - <Billy Laurent - Last Filed: 05/26/17 17:54> Date of Encounter: 05/26/17 - Assessment and plan (1) Candidal intertrigo Current Visit: Yes Status: Acute Assessment and plan: On IV Diflucan. (2) Chronic neutropenia Current Visit: No Status: Chronic (3) Type 2 diabetes mellitus Current Visit: Yes Status: Chronic Qualifiers: Diabetes mellitus complication status: with skin complications Diabetes mellitus complication detail: with other skin complication Diabetes mellitus [facility] insulin use: without [facility] use Qualified Code(s): E11.628 - Type 2 diabetes mellitus with other skin complications (4) Colostomy in place Current Visit: No Status: Chronic (5) Rheumatoid arthritis Current Visit: No Status: Acute Qualifiers: Rheumatoid arthritis location: multiple sites Rheumatoid factor presence: unspecified presence Qualified Code(s): M06.9 - Rheumatoid arthritis, unspecified - Constitutional Vitals: Temp Pulse Resp BP Pulse Ox 97.9 F 61 18 151/75 96 05/26/17 14:51 05/26/17 14:51 05/26/17 14:51 05/26/17 14:51 05/26/17 14:51 Internal Medicine: Result - Labs CBC & Chem 7: 05/26/17 06:31 05/26/17 06:31 Labs: Short CBC 05/26/17 Range/Units 06:31 WBC 1.7 L (4.3-11.1) K/mcL Hgb 11.2 L (11.5-15.4) g/dL Hct 34.4 L (35.3-44.9) % Plt Count 212 (140-400) K/mcL Neutrophils # 0.2 L (1.6-8.9) K/mcL BMP 05/26/17 06:31 Sodium 135 L Potassium 4.3 Chloride 102 Carbon Dioxide 28 BUN 12 Creatinine 0.84 Glucose 150 H Calcium 9.9 Liver Function 05/26/17 Range/Units 06:31 Total Bilirubin 0.5 (0.2-1.2) mg/dL AST 13 (5-34) Units/L ALT 10 (0-55) Units/L Alkaline Phosphatase 81 (38-126) Units/L Albumin 2.6 L (3.5-5.0) g/dL Urine 05/25/17 Range/Units 19:35 Urine Color Dark Yellow (Yellow) Urine Clarity Cloudy A (Clear) Urine pH 6.0 (5.0-8.0) pH Units Ur Specific [place] 1.028 H (1.010-1.025) Urine Protein 100 H (Neg-Trace) mg/dL Urine Glucose (UA) Normal (Normal) mg/dL - ABG Interpretation ABG results: PT/INR, D-dimer PT 11.9 Seconds (9.4-12.1) 05/26/17 06:31 - Attending Attestation I examined this patient and my medical decision-making was reviewed with the Resident Physician on 05/26/17. I agree with the documented findings, disposition and treatment plan as described except to the extent set forth below. Ms. Hardy is currently in observation for persistent fungal dermatitis and chronic neutropenia. She is moderate to high risk due to potential for worsening blood issues and IV antifungal. Ms. Hardy feels OK. She has improved with IV fluids she feels. Tolerating IV Diflucan. Appreciate heme input - Neupogen ordered. No fever or chills. Pain controlled at this time. Exam Alert. Comfortable at rest Mucus membranes moist Heart reg No wheeze Abd soft Diffuse rash consistent with fungal dermatitis/intertrigo I/P 1. Intertrigo - on IV Diflucan 2. Neutropenia chronic - Neupogen ordered Further diagnoses and plan as above.
[2017-05-27] MEDS ORDERED: Ondansetron 4 MG/2 ML VIAL IVP PRN (05:07)
[2017-05-27] MEDS ORDERED: Ondansetron 4 MG/2 ML VIAL ONE (05:10)
[2017-05-27 05:12] LABS: Basophils % 1.5 %; Eosinophils # 0.3 K/mcL (0.0-0.6); Eosinophils % 12.6 %; Hemoglobin 12.3 g/dL (11.5-15.4); Immature Granulocytes % 2.3 % (0-4); Lymphocytes # 0.8 K/mcL (0.6-4.6); Mean Corpuscular HGB Conc 33.2 g/dL (31.6-35.5); Mean Corpuscular Hemoglobin 30.4 pg (28.0-33.3); Mean Corpuscular Volume 91.4 fL (83.0-100.0); Monocytes # 0.6 K/mcL (0.0-1.3); Monocytes % 24.1 %; Neutrophils # 0.7 K/mcL (1.6-8.9); Platelet Count 208 K/mcL (140-400); Red Blood Count 4.05 M/mcL (3.82-4.97); Red Cell Distribution Width 12.6 % (11.5-14.5); Segmented Neutrophils % 28.5 %
[2017-05-27 05:23] LABS: BUN/Creatinine Ratio 14 (6-26); Blood Urea Nitrogen 11 mg/dL (7-20); Carbon Dioxide 26 mEq/L (19-29); Chloride 103 mEq/L (98-109); Glucose 146 mg/dL (70-99); Osmolality,Calculated 284 (280-300); Potassium 4.2 mEq/L (3.5-4.5); Sodium 136 mEq/L (136-145); eGFR For African Americans > 60 (> 60); eGFR For Non-African Americans > 60 (> 60)
[2017-05-27 05:46] LABS: Platelet Clumps Few (Not Present); Platelet Estimate Normal (Normal)
[2017-05-27] MEDS: *HR* Heparin 5,000 UNIT/ML VIAL SQ SCH ×2 (06:36→17:30)
[2017-05-27] MEDS: amLODIPine 5 MG TABLET PO SCH (09:03)
[2017-05-27] MEDS: FLUoxetine 20 MG CAPSULE PO SCH (09:03)
[2017-05-27] MEDS: *HR* Glimepiride 4 MG TABLET PO SCH (09:03)
[2017-05-27] MEDS: Fluconazole 100 MG/50 ML 100 MG/50 ML BAG IVPB SCH (09:03)
[2017-05-27] MEDS: Nystatin POWDER 30 GM BOTTLE TP SCH ×2 (09:04→21:02)
[2017-05-27] MEDS: Ketoconazole 2% CRM 15 GM TUBE TP SCH ×2 (09:04→21:02)
[2017-05-27] MEDS: Insulin LISPRO 300 UNITS/3 ML VIAL SQ SCH ×3 (09:04→17:30)
[2017-05-27 11:04] LABS: Bilirubin,Urine Negative (Negative); Blood,Urine Moderate (Negative); Clarity,Urine Clear (Clear); Color,Urine Yellow (Yellow); Glucose,Urine (UA) Normal (Normal); Ketones,Urine Negative (Negative); Leukocyte Esterase,Urine Negative (Negative); Nitrite,Urine Negative (Negative); Protein,Urine 30 mg/dL (Neg-Trace); Specific Gravity,Urine 1.016 (1.010-1.025); Urobilinogen,Urine Normal (Normal)
[2017-05-27 11:21] LABS: Bacteria,Urine Few per hpf (None-Few); Squamous Epithelial Cell,Urine Few per lpf (None-Few); WBC,Urine 0-3 per hpf (0-3)
[2017-05-27] MEDS: D5% in 0.45% NACL 1,000 ML IVC SCH (11:56)
--- NOTE | 2017-05-27 13:15 | Internal Med Progress Note ---
<Vincenzo Allen - Last Filed: 05/27/17 12:58> Date of Encounter: 05/27/17 Time of Encounter: 10:00 - Assessment and plan (1) Fungal dermatitis Current Visit: Yes Status: Acute Assessment and plan: Appears to have a fungal rash under both breasts and around ostomy. Patient also leukopenic and will need to improve her WBC in order to adequately fight the infection. Patient placed on IV fluconazole Topical Nystatin and ketoconazole Appreciate continued heme/onc assistance in the management and care of the patient will continue neupogen with the goal of getting ANC above 1500 IVF have been stopped as the patient is tolerating PO (2) Chronic neutropenia Current Visit: No Status: Chronic Assessment and plan: Patient seen by hematology/oncology. She has been undergoing workup for this as an outpatient. 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 Heme/Onc plans to start neupogen with the goal of getting her neutrophils above 1500. 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 Return culture was positive for pseudamonas and another gram negative sintia. Given the degree of skin sloughing that she is experiencing as well as the gross contamination seen in the original UA and patient reports being asymptomatic, no antibiotics were started. Second UA performed via straight catherization was not suggestive of UTI at all , another culture was sent just to make sure that the previously seen urine culture was just contaminate. Will wait for urine culture to return (5) Frail elderly Current Visit: No Status: Acute Assessment and plan: Patient is elderly with multiple comorbities. She reports weakness likely on account of her recent decreased PO from nausea and vomiting. Will consult PT/OT (6) Hypertension Current Visit: No Status: Chronic Assessment and plan: Patient has been having some elevated blood pressures Continue home medications of metoprolol and amlodipine Consider increasing dosages if continued hypertension see while inpatient Qualifiers: Hypertension type: essential hypertension Qualified Code(s): I10 - Essential (primary) hypertension (7) Type 2 diabetes mellitus Current Visit: No Status: Chronic Assessment and plan: Will hold her metformin, but continue her Glimepiride Start insulin sliding scale monitor patient blood glucose diabetic diet Qualifiers: Diabetes mellitus complication status: with unspecified complications Diabetes mellitus prison insulin use: without prison use Qualified Code( s): E11.8 - Type 2 diabetes mellitus with unspecified complications (8) DVT prophylaxis Current Visit: No Status: Acute Assessment and plan: Heparin SQ BID - Time Spent With Patient 25 - 35 minutes - Subjective Interval history: Patient reports that she had an episode and some vomiting yesterday evening, but has been fine this morning. She reports that she has continued burning pain in the areas of her fungal rash. She reports no urinary symptoms. - Constitutional Vitals: Temp Pulse Resp BP Pulse Ox 98.4 F 69 18 146/67 95 05/27/17 10:06 05/27/17 10:06 05/27/17 10:06 05/27/17 10:06 05/27/17 10:06 General appearance: Present: cooperative, A&O X 3, pleasant, no acute distress Exam: General: Cooperative, pleasant, no acute distress, alert and oriented 3, answers questions appropriately HEENT: Normocephalic, atraumatic, Conjunctiva pink, sclera anicteric, oral mucosa moist, no orophargeal erythema or exudates Respiratory: No accessory muscle usage, clear to auscultation bilaterally, no wheezes/rhonchi/rales appreciated Cardiovascular: Regular rate and rhythm, S1 and S2 present, no murmurs/rubs/ gallops/clicks appreciated GI/abdominal: Nondistended, nontender, soft, normal bowel sounds, no peritoneal signs Extremities: No calf tenderness, noncyanotic, no pedal edema appreciated, warm, lower extremity pulses palpable and symmetrical Neurological: Alert and oriented 3, no facial droop, no focal deficits Skin: Area under both breasts is erythematous with satellite lesions, area extending in 10 cm in radius around stoma appears erythematous Internal Medicine: Result - Labs CBC & Chem 7: 05/27/17 04:51 05/27/17 04:51 Labs: Short CBC 05/27/17 Range/Units 04:51 WBC 2.6 L D (4.3-11.1) K/mcL Hgb 12.3 (11.5-15.4) g/dL Hct 37.0 (35.3-44.9) % Plt Count 208 (140-400) K/mcL Neutrophils # 0.7 L (1.6-8.9) K/mcL BMP 05/27/17 04:51 Sodium 136 Potassium 4.2 Chloride 103 Carbon Dioxide 26 BUN 11 Creatinine 0.80 Glucose 146 H Calcium 10.0 Urine 05/27/17 Range/Units 09:54 Urine Color Yellow (Yellow) Urine Clarity Clear (Clear) Urine pH 6.0 (5.0-8.0) pH Units Ur Specific [place] 1.016 (1.010-1.025) Urine Protein 30 H (Neg-Trace) mg/dL Urine Glucose (UA) Normal (Normal) mg/dL - ABG Interpretation ABG results: PT/INR, D-dimer PT 11.9 Seconds (9.4-12.1) 05/26/17 06:31 Consult Discharge Plan - Plan Referrals: Philippe Scott Jr, MD [Partnered Physician] - <Billy Laurent - Last Filed: 05/27/17 15:07> Date of Encounter: 05/27/17 - Assessment and plan (1) Candidal intertrigo Current Visit: Yes Status: Acute (2) Chronic neutropenia Current Visit: No Status: Chronic (3) Type 2 diabetes mellitus Current Visit: Yes Status: Chronic Qualifiers: Diabetes mellitus complication status: with skin complications Diabetes mellitus complication detail: with other skin complication Diabetes mellitus prison insulin use: without prison use Qualified Code(s): E11.628 - Type 2 diabetes mellitus with other skin complications (4) Colostomy in place Current Visit: No Status: Chronic (5) Rheumatoid arthritis Current Visit: No Status: Acute Qualifiers: Rheumatoid arthritis location: multiple sites Rheumatoid factor presence: unspecified presence Qualified Code(s): M06.9 - Rheumatoid arthritis, unspecified (6) Positive urine culture Current Visit: Yes Status: Acute (7) Hypertension Current Visit: No Status: Chronic Qualifiers: Hypertension type: essential hypertension Qualified Code(s): I10 - Essential (primary) hypertension (8) Nausea alone Current Visit: Yes Status: Acute - Constitutional Vitals: Temp Pulse Resp BP Pulse Ox 98.8 F 95 18 166/68 95 05/27/17 14:27 05/27/17 14:27 05/27/17 14:27 05/27/17 14:27 05/27/17 14:27 Internal Medicine: Result - Labs CBC & Chem 7: 05/27/17 04:51 05/27/17 04:51 Labs: Short CBC 05/27/17 Range/Units 04:51 WBC 2.6 L D (4.3-11.1) K/mcL Hgb 12.3 (11.5-15.4) g/dL Hct 37.0 (35.3-44.9) % Plt Count 208 (140-400) K/mcL Neutrophils # 0.7 L (1.6-8.9) K/mcL BMP 05/27/17 04:51 Sodium 136 Potassium 4.2 Chloride 103 Carbon Dioxide 26 BUN 11 Creatinine 0.80 Glucose 146 H Calcium 10.0 Urine 05/27/17 Range/Units 09:54 Urine Color Yellow (Yellow) Urine Clarity Clear (Clear) Urine pH 6.0 (5.0-8.0) pH Units Ur Specific [place] 1.016 (1.010-1.025) Urine Protein 30 H (Neg-Trace) mg/dL Urine Glucose (UA) Normal (Normal) mg/dL - ABG Interpretation ABG results: PT/INR, D-dimer PT 11.9 Seconds (9.4-12.1) 05/26/17 06:31 - Attending Attestation I examined this patient and my medical decision-making was reviewed with the Resident Physician on 05/27/17. I agree with the documented findings, disposition and treatment plan as described except to the extent set forth below. Ms. Hardy is currently in observation for severe fungal dermatitis and chronic neutropenia. She is moderate risk due to potential for worsening infectious status and IV meds. Ms. Hardy had some nausea last evening. Currently is not an issue. No fever or chills. No cough. Skin still very excoriated. Urine with bacteria but UA contaminated. Exam Alert. Comfortable Mucus membranes dry Heart reg No wheeze Abd soft and nontender Skin essentially unchanged. I/P 1. Fungal dermatitis - on IV Diflucan 2. ? UTI - repeat UA/C&S by straight cath 3. Nausea - appears to be a chronic issue. If no change will follow as outpatient. 4. Chronic neutropenia - on Neupogen Further diagnoses and plan as above.
[2017-05-27] MEDS: Acetaminophen 325 MG TABLET PO PRN (18:26)
[2017-05-27] MEDS ORDERED: traMADol 50 MG TABLET PO ONE (21:46)
[2017-05-28] MEDS: Acetaminophen 325 MG TABLET PO PRN ×2 (02:34→20:10)
[2017-05-28] MEDS: D5% in 0.45% NACL 1,000 ML IVC SCH ×2 (02:34→16:24)
[2017-05-28 05:53] LABS: Hematocrit 34.5 % (35.3-44.9); Hemoglobin 11.2 g/dL (11.5-15.4); Mean Corpuscular HGB Conc 32.5 g/dL (31.6-35.5); Mean Corpuscular Hemoglobin 30.3 pg (28.0-33.3); Mean Corpuscular Volume 93.2 fL (83.0-100.0); Platelet Count 176 K/mcL (140-400); Red Cell Distribution Width 12.6 % (11.5-14.5)
[2017-05-28 06:10] LABS: BUN/Creatinine Ratio 15 (6-26); Blood Urea Nitrogen 11 mg/dL (7-20); Calcium 9.2 mg/dL (8.6-10.8); Carbon Dioxide 28 mEq/L (19-29); Chloride 105 mEq/L (98-109); Glucose 142 mg/dL (70-99); Osmolality,Calculated 284 (280-300); Potassium 3.8 mEq/L (3.5-4.5); Sodium 136 mEq/L (136-145); eGFR For African Americans > 60 (> 60); eGFR For Non-African Americans > 60 (> 60)
[2017-05-28 06:21] LABS: Basophils # 0.1 K/mcL (0.0-0.2); Eosinophils # 0.8 K/mcL (0.0-0.6); Large Platelets Present (Not Present); Monocytes # 0.4 K/mcL (0.0-1.3); Neutrophils # 0.3 K/mcL (1.6-8.9); Platelet Estimate Normal (Normal)
[2017-05-28] MEDS: *HR* Heparin 5,000 UNIT/ML VIAL SQ SCH ×3 (06:44→17:08)
[2017-05-28] MEDS: Insulin LISPRO 300 UNITS/3 ML VIAL SQ SCH ×3 (07:47→16:25)
[2017-05-28] MEDS: Nystatin POWDER 30 GM BOTTLE TP SCH ×2 (07:48→20:09)
[2017-05-28] MEDS: FLUoxetine 20 MG CAPSULE PO SCH (07:49)
[2017-05-28] MEDS: *HR* Glimepiride 4 MG TABLET PO SCH (07:49)
[2017-05-28] MEDS: amLODIPine 5 MG TABLET PO SCH (07:49)
[2017-05-28] MEDS: Fluconazole 100 MG/50 ML 100 MG/50 ML BAG IVPB SCH (07:54)
[2017-05-28] MEDS: Ketoconazole 2% CRM 15 GM TUBE TP SCH ×2 (07:55→20:09)
--- NOTE | 2017-05-28 10:31 | Internal Med Progress Note ---
Addendum entered and electronically signed by Ashley Saeed DO 05/28/17 16:11: 9.) C. Diff- PCR positive for C. Diff collected on 05/19/2017 at [facility] ED Patient had cute diarrhea at the time of collection Will start Flagyl IV Original Note: <Ashley Saeed - Last Filed: 05/28/17 15:43> Date of Encounter: 05/28/17 Time of Encounter: 09:30 - Assessment and plan (1) Fungal dermatitis Current Visit: Yes Status: Acute Assessment and plan: Patient has a fungal rash under breasts, around ostomy, and on left upper medial thigh. Patient is also leukopenic and will need to improve her WBC in order to adequately fight the infection. Treatment: IV fluconazole Topical Nystatin and ketoconazole Surgery is following. Heme/onc assistance in the management and care of the patient is appreciated. (2) Chronic neutropenia Current Visit: No Status: Chronic Assessment and plan: Patient is currently being seen outpatient by hematology /oncology- workup for chronic neutropenia. Neutropenia may be due to RA associated autoimmune neutropenia. 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 She admitted to weakness due to nausea and vomiting. PT/OT report as a patient is at her baseline and does not need any more PT/OT intervention. They believe she may go home with along with home health. (5) Hypertension Current Visit: No Status: Chronic Assessment and plan: Patient's blood pressures has improved and is 122/86 Continue home medications of metoprolol and amlodipine Qualifiers: Hypertension type: essential hypertension Qualified Code(s): I10 - Essential (primary) hypertension (6) Type 2 diabetes mellitus Current Visit: Yes Status: Chronic Assessment and plan: Continue her glimepiride. Hold metformin Start her on low dose insulin sliding scale diabetic diet Monitor blood glucose Qualifiers: Diabetes mellitus complication status: with skin complications Diabetes mellitus complication detail: with other skin complication Diabetes mellitus continuous churn buttermaker insulin use: without [facility]p use Qualified Code(s): E11.628 - Type 2 diabetes mellitus with other skin complications (7) DVT prophylaxis Current Visit: Yes Status: Acute Assessment and plan: Patient is on heparin (8) Positive urine culture Current Visit: Yes Status: Acute Assessment and plan: Urine Culture final - negative for pathogens Patient at admission had a UA that was suggestive of a UTI that grew Pseudomonas and Enterobacter. However given the amount of skin sloughing and gross contamination, and patient being asymptomatic no antibiotics were started. A UA performed via straight catheterization was not suggestive of a UTI hence the final urine culture was sent. - Subjective Interval history: Sitting in chair comfortably. She states that the dermatitis under both breasts, around colostomy, and upper inner thigh is very tender and comfortable. She denies fever, chills, chest pain, dyspnea, nausea, vomiting, change in urination. - Constitutional Vitals: Temp Pulse Resp BP Pulse Ox 98.2 F 76 15 122/86 95 05/28/17 07:41 05/28/17 07:41 05/28/17 07:41 05/28/17 07:41 05/28/17 07:41 General appearance: Present: cooperative, A&O X 3, pleasant, no acute distress - Head Head exam: Present: atraumatic, normocephalic - Eye Eye exam: Present: conjuntiva pink. Absent: scleral icterus - Respiratory Respiratory exam: Present: CTAB. Absent: rales, respiratory distress, wheezes - Cardiovascular Cardiovascular exam: Present: RRR, +S1, +S2. Absent: gallop, rubs - GI/Abdominal GI/Abdominal exam: Present: normal bowel sounds, soft. Absent: firm, guarding - Extremities Exam Extremities exam: Present: normal inspection, warm. Absent: calf tenderness, mottling - Back Exam Back exam: Present: normal inspection. Absent: rash noted - Skin Skin exam: Absent: dry (Erythematous under breasts bilaterally, around colostomy , left medial inner thigh) Internal Medicine: Result - Labs CBC & Chem 7: 05/28/17 05:23 05/28/17 05:23 Labs: Short CBC 05/28/17 Range/Units 05:23 WBC 2.5 L (4.3-11.1) K/mcL Hgb 11.2 L (11.5-15.4) g/dL Hct 34.5 L (35.3-44.9) % Plt Count 176 (140-400) K/mcL Neutrophils # 0.3 L (1.6-8.9) K/mcL BMP 05/28/17 05:23 Sodium 136 Potassium 3.8 Chloride 105 Carbon Dioxide 28 BUN 11 Creatinine 0.74 Glucose 142 H Calcium 9.2 Urine 05/27/17 Range/Units 09:54 Urine Color Yellow (Yellow) Urine Clarity Clear (Clear) Urine pH 6.0 (5.0-8.0) pH Units Ur Specific [place] 1.016 (1.010-1.025) Urine Protein 30 H (Neg-Trace) mg/dL Urine Glucose (UA) Normal (Normal) mg/dL - ABG Interpretation ABG results: PT/INR, D-dimer PT 11.9 Seconds (9.4-12.1) 05/26/17 06:31 Consult Discharge Plan - Plan Referrals: Philippe Scott Jr, MD [Partnered Physician] - <Billy Laurent - Last Filed: 05/28/17 18:20> Date of Encounter: 05/28/17 - Assessment and plan (1) Candidal intertrigo Current Visit: Yes Status: Acute (2) C. difficile colitis Current Visit: Yes Status: Acute Assessment and plan: On Flagyl. (3) Chronic neutropenia Current Visit: No Status: Chronic (4) Type 2 diabetes mellitus Current Visit: Yes Status: Chronic Qualifiers: Diabetes mellitus complication status: with skin complications Diabetes mellitus complication detail: with other skin complication Diabetes mellitus [facility] insulin use: without [facility] use Qualified Code(s): E11.628 - Type 2 diabetes mellitus with other skin complications (5) Colostomy in place Current Visit: No Status: Chronic (6) Rheumatoid arthritis Current Visit: No Status: Acute Qualifiers: Rheumatoid arthritis location: multiple sites Rheumatoid factor presence: unspecified presence Qualified Code(s): M06.9 - Rheumatoid arthritis, unspecified (7) Positive urine culture Current Visit: Yes Status: Acute (8) Hypertension Current Visit: No Status: Chronic Qualifiers: Hypertension type: essential hypertension Qualified Code(s): I10 - Essential (primary) hypertension (9) Nausea alone Current Visit: Yes Status: Acute - Constitutional Vitals: Temp Pulse Resp BP Pulse Ox 99.0 F 58 16 156/70 94 05/28/17 14:57 05/28/17 14:57 07/17/17 14:57 05/28/17 14:57 05/28/17 14:57 Internal Medicine: Result - Labs CBC & Chem 7: 05/28/17 05:23 05/28/17 05:23 Labs: Short CBC 05/28/17 Range/Units 05:23 WBC 2.5 L (4.3-11.1) K/mcL Hgb 11.2 L (11.5-15.4) g/dL Hct 34.5 L (35.3-44.9) % Plt Count 176 (140-400) K/mcL Neutrophils # 0.3 L (1.6-8.9) K/mcL BMP 05/28/17 05:23 Sodium 136 Potassium 3.8 Chloride 105 Carbon Dioxide 28 BUN 11 Creatinine 0.74 Glucose 142 H Calcium 9.2 - ABG Interpretation ABG results: PT/INR, D-dimer PT 11.9 Seconds (9.4-12.1) 05/26/17 06:31 - Attending Attestation I examined this patient and my medical decision-making was reviewed with the Resident Physician on 05/28/17. I agree with the documented findings, disposition and treatment plan as described except to the extent set forth below. Ms Hardy is currently admitted for severe fungal dermatitis and chronic neutropenia. She remains moderate to high risk due to potential of worsening infection with neutropenia. She also is noted to be C diff positive recently and is on Neupogen. Ms. Hardy is now in isolation for C diff and on Flagyl. No fever or chills. No diarrhea. Still with low WBC. Repeat urine by straight cath culture is negative. Exam Alert. Comfortable Mucus membranes dry Heart reg Lungs no wheeze Abd nontender Rash about the same I/P 1. Fungal dermatitis - on IV Diflucan, cream 2. C diff on Flagyl 3. Neutropenia on Neupogen Further diagnoses and plan as above.
[2017-05-28] MEDS: MetroNIDAZOLE 500 MG/100 ML 500 MG/100 ML BAG IVPB SCH (16:25)
--- NOTE | 2017-05-28 17:16 | Oncology Inp Progress Note ---
Date of Encounter: 05/28/17 Time of Encounter: 17:15 (1) Leukopenia Current Visit: No Status: Acute Assessment and plan: Continue Neupogen 300 g daily to obtain an ANC of 1500 to help her contend with this infection given the severity of her rash and the severity of her neutropenia. If still hospitalized, we can send peripheral blood flow cytometry this coming week for LGL leukemia. Treatment will not be altered even if she has this is ordered. Qualifiers: Leukopenia type: neutropenia Neutropenia type: unspecified Qualified Code (s): D70.9 - Neutropenia, unspecified (2) Fungal dermatitis Current Visit: Yes Status: Acute Assessment and plan: She is under the excellent care of the hospitalist with broad-spectrum antifungals. We will defer management to the primary team. Oncology: Subj Interval history: Feeling a bit better. She thinks rash is less tender. Afebrile. No new c/o. - Constitutional Vitals: Vital Signs Temp Pulse Resp BP Pulse Ox 05/28/17 14:57 99.0 F 58 16 156/70 94 05/28/17 11:29 98.5 F 76 17 123/74 95 05/28/17 07:41 98.2 F 76 15 122/86 95 05/28/17 07:14 95 05/28/17 04:51 97.7 F 61 18 175/73 95 05/27/17 19:53 98.9 F 68 18 153/71 93 Intake and Output 05/28/17 05/28/17 05/29/17 08:59 16:59 00:59 Intake Total 1458 / 1458 1382 / 1382 Output Total 400 / 400 400 / 400 Balance 1058 / 1058 982 / 982 Intake: IV Fluids 1458 / 1458 592 / 592 D5% And 0.45% Nacl 1000 1408 / 1408 592 / 592 Ml Bag 1,000 ML @ 75 mls/ hr IVC .[id number] [facility] Rx#: [id number] Diflucan 100 MG/50 ML 100 50 / 50 mg In 50 ml @ 50 mls/hr IVPB DAILY [facility] Rx#: [id number] Oral 0 / 0 790 / 790 Output: Urine 400 / 400 200 / 200 Stool 0 / 0 200 / 200 Other: Meal Lunch Percent of Meal Consumed 100% Stool Size Small Stool Consistency soft formed Stool Color Brown # Urine Diapers 1 Weight 63.4 kg 63.4 kg Blood Glucose* 139 153 Patient Weight 05/29/17 00:59 Weight 63.4 kg - Head Head exam: Present: atraumatic, normal inspection, normocephalic - Eye Eye exam: Present: conjuntiva pink, sclera anicteric - ENT ENT exam: Present: mucous membranes moist, normal oropharynx - Neck Neck exam: Present: full ROM, normal inspection - Respiratory Respiratory exam: Present: decreased breath sounds - Cardiovascular Cardiovascular exam: Present: RRR - GI/Abdominal GI/Abdominal exam: Present: normal bowel sounds, soft Additional comments: LLQ ostomy in place - Extremities Exam Extremities exam: Present: pedal edema - Skin Skin exam: Present: rash (Stable scaling, erythematous rash about belly and below breasts) Oncology: Obj Data - Labs CBC & Chem 7: 05/28/17 05:23 05/28/17 05:23 Labs: Laboratory Results - last 24 hr 05/27/17 05/28/17 05/28/17 19:51 05:23 05:23 WBC 2.5 L RBC 3.70 L Hgb 11.2 L Hct 34.5 L MCV 93.2 MCH 30.3 MCHC 32.5 RDW 12.6 Plt Count 176 MPV 11.0 Seg Neutrophils % 8.0 Band Neutrophils % 4.0 Lymphocytes % 38.0 Monocytes % 16.0 Eosinophils % 32.0 Basophils % 2.0 Neutrophils # 0.3 L Lymphocytes # 1.0 Monocytes # 0.4 Eosinophils # 0.8 H Basophils # 0.1 Platelet Estimate Normal Large Platelets Present A Sodium 136 Potassium 3.8 Chloride 105 Carbon Dioxide 28 BUN 11 Creatinine 0.74 Est GFR ( Amer) > 60 Est GFR (Non-Af Amer) > 60 BUN/Creatinine Ratio 15 Glucose 142 H POC Glucose 190 H Calculated Osmolality 284 Calcium 9.2 - ABG Interpretation ABG results: PT/INR, D-dimer PT 11.9 Seconds (9.4-12.1) 05/26/17 06:31 Consult Discharge Plan - Plan Referrals: Philippe Scott Jr, MD [Partnered Physician] -
[2017-05-29] MEDS: MetroNIDAZOLE 500 MG/100 ML 500 MG/100 ML BAG IVPB SCH ×2 (00:08→08:27)
[2017-05-29 05:04] LABS: Basophils % 1.3 %; Eosinophils # 0.6 K/mcL (0.0-0.6); Eosinophils % 19.9 %; Hematocrit 33.2 % (35.3-44.9); Hemoglobin 11.1 g/dL (11.5-15.4); Immature Granulocytes % 0.7 % (0-4); Lymphocytes % 24.9 %; Mean Corpuscular HGB Conc 33.4 g/dL (31.6-35.5); Mean Corpuscular Hemoglobin 31.1 pg (28.0-33.3); Mean Platelet Volume 10.8 fL (9.4-12.4); Monocytes # 0.6 K/mcL (0.0-1.3); Monocytes % 20.9 %; Platelet Count 160 K/mcL (140-400); Red Blood Count 3.57 M/mcL (3.82-4.97); Red Cell Distribution Width 12.6 % (11.5-14.5); Segmented Neutrophils % 32.3 %
[2017-05-29 05:09] LABS: Lymphocytes # 0.8 K/mcL (0.6-4.6)
[2017-05-29 05:19] LABS: BUN/Creatinine Ratio 14 (6-26); Blood Urea Nitrogen 10 mg/dL (7-20); Calcium 9.1 mg/dL (8.6-10.8); Carbon Dioxide 27 mEq/L (19-29); Chloride 106 mEq/L (98-109); Glucose 117 mg/dL (70-99); Osmolality,Calculated 288 (280-300); Potassium 3.2 mEq/L (3.5-4.5); Sodium 139 mEq/L (136-145); eGFR For African Americans > 60 (> 60); eGFR For Non-African Americans > 60 (> 60)
[2017-05-29 05:31] LABS: Platelet Estimate Normal (Normal)
[2017-05-29] MEDS: D5% in 0.45% NACL 1,000 ML IVC SCH (05:33)
[2017-05-29] MEDS: *HR* Heparin 5,000 UNIT/ML VIAL SQ SCH ×2 (05:33→18:36)
[2017-05-29] MEDS: Insulin LISPRO 300 UNITS/3 ML VIAL SQ SCH ×3 (08:26→16:28)
[2017-05-29] MEDS: FLUoxetine 20 MG CAPSULE PO SCH (08:28)
[2017-05-29] MEDS: *HR* Glimepiride 4 MG TABLET PO SCH (08:29)
[2017-05-29] MEDS: Ketoconazole 2% CRM 15 GM TUBE TP SCH ×2 (08:29→20:32)
[2017-05-29] MEDS: amLODIPine 5 MG TABLET PO SCH (08:29)
[2017-05-29] MEDS: Nystatin POWDER 30 GM BOTTLE TP SCH ×2 (08:30→20:32)
[2017-05-29] MEDS: Acetaminophen 325 MG TABLET PO PRN (09:14)
[2017-05-29] MEDS: Fluconazole 100 MG/50 ML 100 MG/50 ML BAG IVPB SCH (10:04)
--- NOTE | 2017-05-29 15:46 | Internal Med Progress Note ---
Date of Encounter: 05/29/17 Time of Encounter: 12:00 - Assessment and plan (1) Fungal dermatitis Current Visit: Yes Status: Acute Assessment and plan: Patient on fluconazole. We will transition to oral fluconazole. Discussed with patient's surgeon Dr. Nolen who had sent the patient to the ER for this hospitalization. Patient had been treated as outpatient for this dermatitis multiple times but without any significant improvement. This is likely due to the fact that the patient has chronic neutropenia. Oncology recommends keeping the neutrophil count greater than 1500. This morning neutrophil count is 1000. Received another dose of Neupogen today. Patient will likely continue to have poor response to fungal dermatitis due to chronic neutropenia. (2) Chronic neutropenia Current Visit: Yes Status: Chronic Assessment and plan: Being managed with Neupogen. Follow oncology recommendations. (3) C. difficile colitis Current Visit: Yes Status: Acute Assessment and plan: No longer having diarrhea. We will remove isolation precautions. Complete short course with Flagyl. 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 However patient's and patient are concerned that they would not be able to manage patient' s care at home as they do not have much help. mat worker has been consulted to make appropriate discharge arrangements for the patient. (6) Hypertension Current Visit: Yes Status: Chronic Assessment and plan: Blood pressure is uncontrolled. On Lopressor 50 twice daily and amlodipine 5 mg by mouth daily. We will increase amlodipine dosage to 10 mg by mouth daily. Qualifiers: Hypertension type: essential hypertension Qualified Code(s): I10 - Essential (primary) hypertension (7) Type 2 diabetes mellitus Current Visit: Yes Status: Chronic Assessment and plan: On glimepiride and insulin. Blood sugars are fairly controlled. Continue current insulin regimen. Qualifiers: Diabetes mellitus complication status: with skin complications Diabetes mellitus complication detail: with other skin complication Diabetes mellitus jail insulin use: without lapel padder blindstitch use Qualified Code(s): E11.628 - Type 2 diabetes mellitus with other skin complications - Subjective Interval history: Patient complaining of an episode of nausea and vomiting earlier this morning. She says that she has had one episode of vomiting every morning. Complains that she is not feeling good but when asked to describe what her symptoms are she just reports that she just does not feel good. Discussed with her . They are concerned that the patient will not be able to be managed at home and has been deteriorating physically over the past several weeks. Denies any shortness of breath or chest pain. - Constitutional Vitals: Temp Pulse Resp BP Pulse Ox 98.1 F 60 16 165/67 97 05/29/17 14:43 05/29/17 14:43 05/29/17 14:43 05/29/17 14:43 05/29/17 14:43 General appearance: Present: cooperative, A&O X 3, pleasant, no acute distress - Respiratory Respiratory exam: Present: CTAB. Absent: accessory muscle use, rales, rhonchi, wheezes - Cardiovascular Cardiovascular exam: Present: RRR, +S1, +S2. Absent: diastolic murmur, gallop, rubs, systolic murmur - GI/Abdominal GI/Abdominal exam: Present: normal bowel sounds, soft, no peritoneal signs. Absent: distended, tenderness - Extremities Exam Extremities exam: Present: warm, radial pulses palpable and symetrical. Absent : calf tenderness, cyanotic, pedal edema - Skin Skin exam: Present: dry, erythema (Rash present under both breasts bilaterally and around her colostomy site), intact Internal Medicine: Result - Labs CBC & Chem 7: 05/29/17 04:41 05/29/17 04:41 Labs: Short CBC 05/29/17 Range/Units 04:41 WBC 3.0 L (4.3-11.1) K/mcL Hgb 11.1 L (11.5-15.4) g/dL Hct 33.2 L (35.3-44.9) % Plt Count 160 (140-400) K/mcL Neutrophils # 1.0 L (1.6-8.9) K/mcL BMP 05/29/17 04:41 Sodium 139 Potassium 3.2 L Chloride 106 Carbon Dioxide 27 BUN 10 Creatinine 0.74 Glucose 117 H Calcium 9.1 - ABG Interpretation ABG results: PT/INR, D-dimer PT 11.9 Seconds (9.4-12.1) 05/26/17 06:31 Consult Discharge Plan - Plan Referrals: Philippe Scott Jr, MD [Partnered Physician] -
[2017-05-29] MEDS: metroNIDAZOLE 500 MG TABLET PO SCH (16:29)
[2017-05-30] MEDS: *HR* Heparin 5,000 UNIT/ML VIAL SQ SCH ×2 (05:09→18:36)
[2017-05-30 07:37] LABS: Hematocrit 36.8 % (35.3-44.9); Hemoglobin 11.8 g/dL (11.5-15.4); Mean Corpuscular HGB Conc 32.1 g/dL (31.6-35.5); Mean Corpuscular Hemoglobin 30.2 pg (28.0-33.3); Mean Corpuscular Volume 94.1 fL (83.0-100.0); Mean Platelet Volume 11.3 fL (9.4-12.4); Monocytes # 0.7 K/mcL (0.0-1.3); Platelet Count 177 K/mcL (140-400); Red Blood Count 3.91 M/mcL (3.82-4.97); Red Cell Distribution Width 12.8 % (11.5-14.5)
[2017-05-30 08:01] LABS: BUN/Creatinine Ratio 13 (6-26); Blood Urea Nitrogen 10 mg/dL (7-20); Calcium 9.9 mg/dL (8.6-10.8); Carbon Dioxide 28 mEq/L (19-29); Chloride 103 mEq/L (98-109); Glucose 124 mg/dL (70-99); Osmolality,Calculated 286 (280-300); Potassium 4.1 mEq/L (3.5-4.5); Sodium 138 mEq/L (136-145); eGFR For African Americans > 60 (> 60); eGFR For Non-African Americans > 60 (> 60)
[2017-05-30 08:51] LABS: Eosinophils # 0.8 K/mcL (0.0-0.6); Lymphocytes # 1.3 K/mcL (0.6-4.6); Neutrophils # 0.9 K/mcL (1.6-8.9)
[2017-05-30 08:52] LABS: Platelet Estimate Normal (Normal)
[2017-05-30] MEDS: *HR* Glimepiride 4 MG TABLET PO SCH (08:54)
[2017-05-30] MEDS: FLUoxetine 20 MG CAPSULE PO SCH (08:54)
[2017-05-30] MEDS: amLODIPine 5 MG TABLET PO SCH (08:54)
[2017-05-30] MEDS: metroNIDAZOLE 500 MG TABLET PO SCH ×3 (08:54→18:36)
[2017-05-30] MEDS: Fluconazole 100 MG TABLET PO SCH (08:54)
[2017-05-30] MEDS: Insulin LISPRO 300 UNITS/3 ML VIAL SQ SCH ×3 (08:56→18:44)
[2017-05-30] MEDS: Ketoconazole 2% CRM 15 GM TUBE TP SCH ×2 (08:58→21:18)
[2017-05-30] MEDS: Nystatin POWDER 30 GM BOTTLE TP SCH ×2 (08:59→21:18)
--- NOTE | 2017-05-30 12:43 | Oncology Inp Progress Note ---
Date of Encounter: 05/30/17 Time of Encounter: 12:28 (1) Neutropenic Current Visit: No Status: Acute Assessment and plan: Overall ANC improving, but today values trending down. Currently on neupogen 300 mcg daily. It seems well tolerated, denies new bone pain. I'd suggest to increase the dose of neupogen to 480 mcg SQ daily. Monitor CBC with differential daily - Goal is ANC above 1500. May need maintenance, at least until infection has resolved. will need to follow up with hematology as outpatient to discuss consideration for neupogen maintenance versus monitoring /wait and watch approach. - If still hospitalized by this coming week, please send peripheral blood cytometry to rule out LGL leukemia. Treatment will not be altered at this time, even if she has this condition. Qualifiers: Qualified Code(s): D70.9 - Neutropenia, unspecified (2) Fungal dermatitis Current Visit: Yes Status: Acute Assessment and plan: Continue management as per primary team and ID. On fluconazole. Oncology: Subj Interval history: reports feeling " fair " today, better than in previous days. reports an episode of vomiting early in the morning , but was able to tolerate breakfast after it. she has not eaten lunch yet. Denies fever, chills, headache, chest pain, SOB. - Constitutional Vitals: Vital Signs Temp Pulse Resp BP Pulse Ox 05/30/17 07:43 98 F 67 16 145/68 93 05/30/17 00:05 98.1 F 74 16 156/64 94 05/29/17 19:31 98.4 F 63 16 150/67 96 05/29/17 14:43 98.1 F 60 16 165/67 97 Intake and Output 05/29/17 05/30/17 05/30/17 23:59 07:59 15:59 Intake Total 240 / 240 0 / 0 Output Total 200 / 200 300 / 300 Balance 40 / 40 -300 / -300 Intake: Oral 240 / 240 0 / 0 Output: Urine 150 / 150 300 / 300 Stool 50 / 50 Other: Meal Dinner Percent of Meal Consumed 75% # Voids 1 Weight 68.549 kg Blood Glucose* 110 134 Patient Weight 05/30/17 23:59 Weight 68.549 kg - Head Head exam: Present: normal inspection - ENT ENT exam: Present: normal oropharynx - Respiratory Respiratory exam: Present: CTAB - Cardiovascular Cardiovascular exam: Present: +S1, +S2 - GI/Abdominal GI/Abdominal exam: Present: normal bowel sounds - Extremities Exam Extremities exam: Present: normal inspection Oncology: Obj Data - Labs CBC & Chem 7: 05/30/17 06:48 05/30/17 06:48 Labs: Laboratory Results - last 24 hr 05/29/17 05/29/17 05/30/17 15:46 20:22 06:48 WBC 3.7 L RBC 3.91 Hgb 11.8 Hct 36.8 MCV 94.1 MCH 30.2 MCHC 32.1 RDW 12.8 Plt Count 177 MPV 11.3 Seg Neutrophils % 18.0 Band Neutrophils % 6.0 H Lymphocytes % 36.0 Monocytes % 18.0 Eosinophils % 22.0 Neutrophils # 0.9 L Lymphocytes # 1.3 Monocytes # 0.7 Eosinophils # 0.8 H Platelet Estimate Normal Sodium Potassium Chloride Carbon Dioxide BUN Creatinine Est GFR ( Amer) Est GFR (Non-Af Amer) BUN/Creatinine Ratio Glucose POC Glucose 143 H 110 H Calculated Osmolality Calcium 05/30/17 05/30/17 06:48 07:48 WBC RBC Hgb Hct MCV MCH MCHC RDW Plt Count MPV Seg Neutrophils % Band Neutrophils % Lymphocytes % Monocytes % Eosinophils % Neutrophils # Lymphocytes # Monocytes # Eosinophils # Platelet Estimate Sodium 138 Potassium 4.1 Chloride 103 Carbon Dioxide 28 BUN 10 Creatinine 0.78 Est GFR ( Amer) > 60 Est GFR (Non-Af Amer) > 60 BUN/Creatinine Ratio 13 Glucose 124 H POC Glucose 134 H Calculated Osmolality 286 Calcium 9.9 - ABG Interpretation ABG results: PT/INR, D-dimer PT 11.9 Seconds (9.4-12.1) 05/26/17 06:31 Consult Discharge Plan - Plan Referrals: Philippe Scott Jr, MD [Partnered Physician] - 06/15/17 2:30 pm
--- NOTE | 2017-05-30 13:14 | Oncology Inp Consult Note ---
Date of Encounter: 05/30/17 Time of Encounter: 13:39 Assessment and Plan (1) Neutropenic Status: Acute Assessment and plan: Overall ANC improving, but today values trending down. Currently on neupogen 300 mcg daily. It seems well tolerated, denies new bone pain. I'd suggest to increase the dose of neupogen to 480 mcg SQ daily. Monitor CBC with differential daily - Goal is ANC above 1500. May need maintenance, at least until infection has resolved. will need to follow up with hematology as outpatient to discuss consideration for neupogen maintenance versus monitoring /wait and watch approach. - If still hospitalized by this coming week, please send peripheral blood cytometry to rule out LGL leukemia. Treatment will not be altered at this time, even if she has this condition. Qualifiers: Qualified Code(s): D70.9 - Neutropenia, unspecified (2) Fungal dermatitis Status: Acute Assessment and plan: Continue management as per primary team and ID. On fluconazole. - Data of Consult Requesting Physician: Fermin Girard MD Primary Care Provider: PCP NO Past Med Surg Social Fam HX - Past Medical History Medical history: arthritis, diabetes, GERD, hypertension, kidney stones, osteoporosis, RA, renal disease, valvular heart disease, other (chronic leukopenia) Psychiatric history: anxiety, depression - Past Surgical History Surgical History: cholecystectomy, colectomy, colostomy, herniorrhaphy, knee replacement, ureteral stent - Social History Smoking Status: Never smoker Smokeless Tobacco Status: No Alcohol use: none Drug use: none - Family History Son Adopted: No Living Status: Still Living Hx Family Cardiac Disorders: No Hx Family Respiratory Disorders: Yes Hx Family Cancer: No Hx Family GI Disorders: No Hx Family Endocrine Disorder: No Hx Family Neuromuscular Disorders: No Hx Family Neurologic Disorders: No Hx Family HEENT Disorders: No Hx Family Autoimmune Disorders: Yes (Autoimmune dx, unable to remember name) Medications and Allergies Glimepiride [Amaryl] 4 mg PO QAM 09/22/15 [History] Metformin [Glucophage] 1,000 mg PO BID 09/22/15 [History] Metoprolol [Lopressor] 25 mg PO BID 09/22/15 [History] Omeprazole [PriLOSEC] 20 mg PO QAM 09/22/15 [History] Amlodipine Besylate 10 mg PO DAILY 03/22/16 [History] Potassium Chloride [K-Tab ER] 20 meq PO QPM 03/22/16 [History] Calcium Citrate 400 mg PO TID 01/17/17 [History] Cholecalciferol (D-3) [Vitamin D] 2,000 unit PO DAILY 01/17/17 [History] Docusate [Colace] 100 mg PO BID 01/17/17 [History] Metoclopramide HCl 5 mg PO TID 01/17/17 [History] Sennosides [Senna] 8.6 mg PO BID 01/17/17 [History] Ferrous Sulfate 325 mg PO DAILY@0800 #30 tablet 01/20/17 [Rx] Ascorbate Calcium/Bioflavonoid [Gabriela-C 500 mg Tablet] 1 tab PO DAILY 02/12/17 [ History] Multivitamin [Multi-Day Vitamins] 1 tab PO DAILY 02/12/17 [History] Nut.tx.gluc.intoler,Lac-Fr,Soy [Glucerna 1.5 Vicente] 237 ml PO BID 02/12/17 [ History] Magnesium Oxide [Mag-Ox] 400 mg PO QAM #30 tablet 02/16/17 [Rx] Alendronate Sodium [Fosamax] 70 mg PO QWEEK 04/06/17 [History] FLUoxetine HCl [Prozac] 40 mg PO DAILY 04/06/17 [History] OxyCODONE Immed Rel [Roxicodone 5 MG] 5 mg PO Q4HR PRN #10 tablet 04/10/17 [Rx] Ondansetron [Zofran ODT] 8 mg SL Q4HR #14 tab.rapdis 05/19/17 [Rx] metroNIDAZOLE [Flagyl] 500 mg PO TID #30 tablet 05/19/17 [Rx] Fluconazole [Diflucan] 200 mg PO DAILY 05/26/17 [History] Allergies RODGER Inhibitors Adverse Reaction (Verified 01/17/17 13:54) See Comments UNSURE ampicillin Adverse Reaction (Verified 01/17/17 13:54) See Comments lisinopril Adverse Reaction (Verified 01/17/17 13:54) See Comments Tetracycline Adverse Reaction (Verified 01/17/17 13:54) See Comments Constitutional: Present: fatigue Cardiovascular: Present: chest pain, dyspnea. Absent: leg ulcers, orthopnea, rapid heart rate Respiratory: Present: dyspnea. Absent: cough, hemoptysis, excessive phlegm production Gastrointestinal: Present: change in bowel habits, constipation. Absent: abdominal pain, diarrhea, fecal incontinence Neurological: Absent: confusion, sensory deficit Oncology - Exam - Constitutional Vitals: Temp Pulse Resp BP Pulse Ox 98 F 67 16 145/68 93 05/30/17 07:43 05/30/17 07:43 05/30/17 07:43 05/30/17 07:43 05/30/17 07:43 Oncology - Results - Labs Labs: Short CBC 05/30/17 Range/Units 06:48 WBC 3.7 L (4.3-11.1) K/mcL Hgb 11.8 (11.5-15.4) g/dL Hct 36.8 (35.3-44.9) % Plt Count 177 (140-400) K/mcL Neutrophils # 0.9 L (1.6-8.9) K/mcL BMP 05/30/17 06:48 Sodium 138 Potassium 4.1 Chloride 103 Carbon Dioxide 28 BUN 10 Creatinine 0.78 Glucose 124 H Calcium 9.9 Consult Discharge Plan - Plan Referrals: Philippe Scott Jr, MD [Partnered Physician] - 06/15/17 2:30 pm
--- NOTE | 2017-05-30 15:45 | Internal Med Progress Note ---
Date of Encounter: 05/30/17 Time of Encounter: 15:45 - Assessment and plan (1) Chronic neutropenia Current Visit: Yes Status: Chronic Assessment and plan: Total neutrophils, remains low at 900 today. She does have 6 bands. Total WBC count improved to 3700. Receiving Neupogen. Oncology recommends trying to keep the neutrophil count greater than 1500. Patient has so far been poorly responding to treatment. We will follow oncology recommendations. (2) Fungal dermatitis Current Visit: Yes Status: Acute Assessment and plan: Continue fluconazole. (3) C. difficile colitis Current Visit: Yes Status: Acute Assessment and plan: Patient being treated with Flagyl. She was started on treatment for this on 05/19. She will complete treatment on 06/02/17. 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 Patient feels very wishes to go to skilled rehabilitation as patient's is unable to care for her at home properly. washtub worker helper looking into arrangements for this. (6) Hypertension Current Visit: Yes Status: Chronic Assessment and plan: Amlodipine dosage increased to 10 mg. Blood pressure remains elevated. We will continue to monitor blood pressure and assess response. Qualifiers: Hypertension type: essential hypertension Qualified Code(s): I10 - Essential (primary) hypertension (7) Type 2 diabetes mellitus Current Visit: Yes Status: Chronic Assessment and plan: Well controlled blood sugars. Continue sliding scale insulin. Qualifiers: Diabetes mellitus complication status: with skin complications Diabetes mellitus complication detail: with other skin complication Diabetes mellitus usp insulin use: without local company intermodal truck driver use Qualified Code(s): E11.628 - Type 2 diabetes mellitus with other skin complications - Subjective Interval history: Patient feeling better today. Still feels generally weak. Had one episode of nausea and vomiting this morning but since then has been doing well. Continues to have a rash under her breasts and around the colostomy site. - Constitutional Vitals: Temp Pulse Resp BP Pulse Ox 98 F 67 16 145/68 93 05/30/17 07:43 05/30/17 07:43 05/30/17 07:43 05/30/17 07:43 05/30/17 15:00 General appearance: Present: cooperative, A&O X 3, pleasant, no acute distress - Neck Neck exam general surgery: Present: supple, trachea midline. Absent: lymphadenopathy - Respiratory Respiratory exam: Present: CTAB. Absent: accessory muscle use, rales, rhonchi, wheezes - Cardiovascular Cardiovascular exam: Present: RRR, +S1, +S2. Absent: diastolic murmur, gallop, rubs, systolic murmur - Extremities Exam Extremities exam: Present: warm, radial pulses palpable and symetrical. Absent : calf tenderness, cyanotic, pedal edema - Skin Skin exam: Present: dry, intact Additional comments: Fungal dermatitis noted around colostomy site and below both breasts. Internal Medicine: Result - Labs CBC & Chem 7: 05/30/17 06:48 05/30/17 06:48 Labs: Short CBC 05/30/17 Range/Units 06:48 WBC 3.7 L (4.3-11.1) K/mcL Hgb 11.8 (11.5-15.4) g/dL Hct 36.8 (35.3-44.9) % Plt Count 177 (140-400) K/mcL Neutrophils # 0.9 L (1.6-8.9) K/mcL BMP 05/30/17 06:48 Sodium 138 Potassium 4.1 Chloride 103 Carbon Dioxide 28 BUN 10 Creatinine 0.78 Glucose 124 H Calcium 9.9 - ABG Interpretation ABG results: PT/INR, D-dimer PT 11.9 Seconds (9.4-12.1) 05/26/17 06:31 Consult Discharge Plan - Plan Referrals: Philippe Scott Jr, MD [Partnered Physician] - 06/15/17 2:30 pm
[2017-05-30] MEDS ORDERED: amLODIPine 5 MG TABLET PO SCH (15:50)
[2017-05-31 05:36] LABS: Hematocrit 35.9 % (35.3-44.9); Hemoglobin 11.4 g/dL (11.5-15.4); Mean Corpuscular HGB Conc 31.8 g/dL (31.6-35.5); Mean Corpuscular Hemoglobin 29.9 pg (28.0-33.3); Mean Corpuscular Volume 94.2 fL (83.0-100.0); Mean Platelet Volume 10.4 fL (9.4-12.4); Platelet Count 168 K/mcL (140-400); Red Blood Count 3.81 M/mcL (3.82-4.97); Red Cell Distribution Width 12.8 % (11.5-14.5)
[2017-05-31 05:43] LABS: BUN/Creatinine Ratio 13 (6-26); Blood Urea Nitrogen 10 mg/dL (7-20); Calcium 9.8 mg/dL (8.6-10.8); Carbon Dioxide 32 mEq/L (19-29); Chloride 103 mEq/L (98-109); Glucose 122 mg/dL (70-99); Osmolality,Calculated 286 (280-300); Potassium 3.8 mEq/L (3.5-4.5); Sodium 138 mEq/L (136-145); eGFR For African Americans > 60 (> 60); eGFR For Non-African Americans > 60 (> 60)
[2017-05-31 06:39] LABS: Eosinophils # 0.5 K/mcL (0.0-0.6); Lymphocytes # 1.1 K/mcL (0.6-4.6); Neutrophils # 2.8 K/mcL (1.6-8.9); Platelet Estimate Normal (Normal)
[2017-05-31] MEDS: *HR* Heparin 5,000 UNIT/ML VIAL SQ SCH ×2 (06:39→17:08)
[2017-05-31] MEDS ORDERED: Saline Nasal Spray 44 ML BOTTLE NS PRN (08:44)
[2017-05-31] MEDS: Insulin LISPRO 300 UNITS/3 ML VIAL SQ SCH ×3 (09:26→17:06)
[2017-05-31] MEDS: Fluconazole 100 MG TABLET PO SCH (09:35)
[2017-05-31] MEDS: metroNIDAZOLE 500 MG TABLET PO SCH ×3 (09:35→17:07)
[2017-05-31] MEDS: *HR* Glimepiride 4 MG TABLET PO SCH (09:38)
[2017-05-31] MEDS: Ketoconazole 2% CRM 15 GM TUBE TP SCH (09:38)
[2017-05-31] MEDS: FLUoxetine 20 MG CAPSULE PO SCH (09:39)
[2017-05-31] MEDS: Nystatin POWDER 30 GM BOTTLE TP SCH (09:39)
--- NOTE | 2017-05-31 11:51 | Oncology Inp Progress Note ---
Date of Encounter: 05/31/17 Time of Encounter: 11:46 (1) Neutropenic Current Visit: No Status: Acute Assessment and plan: ANC improved up to 2.8. She clearly responded to neupogen 300 mcg daily, so there is not need o increase it at this time. She will need outpatient monitoring of her cell counts with biweekly CBC. If recurrent neutropenia, consider to resume neupogen 300 mcg daily. At this time it's not clear whether this was reactive neutropenia, cyclic neutropenia or neutropenia secondary to a primary bone marrow disorder ( such as LGL leukemia). If still hospitalized by this coming week, we can send peripheral blood flow cytometry. Please arrange for follow up as outpatient with public health sanitarian technician Dr. Ureña. Qualifiers: Qualified Code(s): D70.9 - Neutropenia, unspecified (2) Fungal dermatitis Current Visit: Yes Status: Acute Oncology: Subj Interval history: Reports feeling ok. Denies significant overnight issues. - Constitutional Vitals: Vital Signs Temp Pulse Resp BP Pulse Ox 05/31/17 11:37 98.6 F 61 16 150/70 97 05/31/17 09:20 94 05/31/17 08:16 98.6 F 68 20 163/67 94 05/31/17 04:00 99.8 F H 67 18 177/74 94 05/31/17 00:09 98.7 F 63 17 138/62 95 05/30/17 23:29 98.8 F 68 18 161/61 98 05/30/17 20:45 99.0 F 69 15 155/70 93 05/30/17 16:26 98.2 F 61 18 151/67 95 05/30/17 15:00 93 Intake and Output 05/30/17 05/31/17 05/31/17 23:59 07:59 15:59 Intake Total 120 / 120 0 / 0 240 / 240 Output Total 200 / 200 0 / 0 130 / 130 Balance -80 / -80 0 / 0 110 / 110 Intake: Oral 120 / 120 0 / 0 240 / 240 Output: Urine 200 / 200 0 / 0 130 / 130 Other: Meal Dinner Breakfast Percent of Meal Consumed 50% 25% # Urine Diapers 1 1 Weight 69.1 kg Blood Glucose* 135 96 133 Patient Weight 05/31/17 23:59 Weight 69.1 kg - Head Head exam: Present: normal inspection - Respiratory Respiratory exam: Present: CTAB - Cardiovascular Cardiovascular exam: Present: +S1 - GI/Abdominal GI/Abdominal exam: Present: soft - Extremities Exam Extremities exam: Present: normal inspection Oncology: Obj Data - Labs CBC & Chem 7: 05/31/17 05:09 05/31/17 05:09 Labs: Laboratory Results - last 24 hr 05/30/17 05/30/17 05/30/17 12:35 17:41 20:52 WBC RBC Hgb Hct MCV MCH MCHC RDW Plt Count MPV Seg Neutrophils % Band Neutrophils % Lymphocytes % Monocytes % Eosinophils % Neutrophils # Lymphocytes # Monocytes # Eosinophils # Platelet Estimate Sodium Potassium Chloride Carbon Dioxide BUN Creatinine Est GFR ( Amer) Est GFR (Non-Af Amer) BUN/Creatinine Ratio Glucose POC Glucose 136 H 84 135 H Calculated Osmolality Calcium 05/31/17 05/31/17 05/31/17 00:17 05:09 05:09 WBC 5.3 RBC 3.81 L Hgb 11.4 L Hct 35.9 MCV 94.2 MCH 29.9 MCHC 31.8 RDW 12.8 Plt Count 168 MPV 10.4 Seg Neutrophils % 46.0 Band Neutrophils % 6.0 H Lymphocytes % 20.0 Monocytes % 18.0 Eosinophils % 10.0 Neutrophils # 2.8 Lymphocytes # 1.1 Monocytes # 1.0 Eosinophils # 0.5 Platelet Estimate Normal Sodium 138 Potassium 3.8 Chloride 103 Carbon Dioxide 32 H BUN 10 Creatinine 0.77 Est GFR ( Amer) > 60 Est GFR (Non-Af Amer) > 60 BUN/Creatinine Ratio 13 Glucose 122 H POC Glucose 96 H Calculated Osmolality 286 Calcium 9.8 05/31/17 08:09 WBC RBC Hgb Hct MCV MCH MCHC RDW Plt Count MPV Seg Neutrophils % Band Neutrophils % Lymphocytes % Monocytes % Eosinophils % Neutrophils # Lymphocytes # Monocytes # Eosinophils # Platelet Estimate Sodium Potassium Chloride Carbon Dioxide BUN Creatinine Est GFR ( Amer) Est GFR (Non-Af Amer) BUN/Creatinine Ratio Glucose POC Glucose 133 H Calculated Osmolality Calcium - Impressions Impressions Chest X-Ray 05/31/17 08:44 IMPRESSION: No acute pneumonia. D/ / Humberto Flor MD / Humberto Flor MD Interpreting Provider: Humberto Flor MD - ABG Interpretation ABG results: PT/INR, D-dimer PT 11.9 Seconds (9.4-12.1) 05/26/17 06:31 Consult Discharge Plan - Plan Referrals: Philippe Scott Jr, MD [Partnered Physician] - 06/15/17 2:30 pm
[2017-05-31] MEDS: Acetaminophen 325 MG TABLET PO PRN (11:56)
--- NOTE | 2017-05-31 12:58 | Discharge Summary ---
Date of Encounter: 05/31/17 Time of Encounter: 09:00 - Discharge Diagnosis (1) Fungal dermatitis Priority: Primary Status: Acute (2) Chronic neutropenia Priority: Secondary Status: Chronic (3) C. 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 Status: Chronic (5) Frail elderly Priority: Secondary Status: Chronic (6) Hypertension Priority: Secondary Status: Chronic Qualifiers: Hypertension type: essential hypertension Qualified Code(s): I10 - Essential (primary) hypertension (7) Type 2 diabetes mellitus Priority: Secondary Status: Chronic Qualifiers: Diabetes mellitus complication status: with skin complications Diabetes mellitus complication detail: with other skin complication Diabetes mellitus half-way insulin use: without continuous churn buttermaker use Qualified Code(s): E11.628 - Type 2 diabetes mellitus with other skin complications - Discharge Medications Prescriptions: Filgrastim [Neupogen] 300 mcg SQ DAILY PRN #10 mls PRN Reason: Neutropenia Home Medications: Glimepiride [Amaryl] 4 mg PO QAM 09/22/15 [History] Metformin [Glucophage] 1,000 mg PO BID 09/22/15 [History] Omeprazole [PriLOSEC] 20 mg PO QAM 09/22/15 [History] Amlodipine Besylate 10 mg PO DAILY 03/22/16 [History] Potassium Chloride [K-Tab ER] 20 meq PO QPM 03/22/16 [History] Calcium Citrate 400 mg PO TID 01/17/17 [History] Cholecalciferol (D-3) [Vitamin D] 2,000 unit PO DAILY 01/17/17 [History] Docusate [Colace] 100 mg PO BID 01/17/17 [History] Metoclopramide HCl 5 mg PO TID 01/17/17 [History] Sennosides [Senna] 8.6 mg PO BID 01/17/17 [History] Ferrous Sulfate 325 mg PO DAILY@0800 #30 tablet 01/20/17 [Rx] Ascorbate Calcium/Bioflavonoid [Gabriela-C 500 mg Tablet] 1 tab PO DAILY 02/12/17 [ History] Multivitamin [Multi-Day Vitamins] 1 tab PO DAILY 02/12/17 [History] Nut.tx.gluc.intoler,Lac-Fr,Soy [Glucerna 1.5 Vicente] 237 ml PO BID 02/12/17 [ History] Magnesium Oxide [Mag-Ox] 400 mg PO QAM #30 tablet 02/16/17 [Rx] Alendronate Sodium [Fosamax] 70 mg PO QWEEK 04/06/17 [History] Ondansetron [Zofran ODT] 8 mg SL Q4HR #14 tab.rapdis 05/19/17 [Rx] Acetaminophen [Tylenol] 650 mg PO Q6HR PRN tab 05/31/17 [Rx] FLUoxetine HCl [Prozac] 20 mg PO DAILY 05/31/17 [Rx] Filgrastim [Neupogen] 300 mcg SQ DAILY PRN #10 mls 05/31/17 [Rx] Fluconazole [Diflucan] 100 mg PO DAILY #7 tab 05/31/17 [Rx] Ketoconazole 2% CRM [Nizoral Cream] 1 appl TP BID 05/31/17 [Rx] Metoprolol [Lopressor] 50 mg PO BID tab 05/31/17 [Rx] Nystatin POWDER [Nystop] 1 appl TP BID bottle 05/31/17 [Rx] metroNIDAZOLE [Flagyl] 500 mg PO TIDWM 3 Days 05/31/17 [Rx] Allergies/Adverse Reactions: Allergies RODGER Inhibitors Adverse Reaction (Verified 01/17/17 13:54) See Comments UNSURE ampicillin Adverse Reaction (Verified 01/17/17 13:54) See Comments lisinopril Adverse Reaction (Verified 01/17/17 13:54) See Comments Tetracycline Adverse Reaction (Verified 01/17/17 13:54) See Comments Date of admission: 05/28/17 16:55 Primary care physician: PCP NO Consults: 05/25/17 20:26 Consult to Physician [CONS] Routine Consulting Provider: Eulogio Ureña Reason for Consult: leukopenia Time Notified: 20:26 Call Completed: Yes 05/26/17 16:12 Consult to Occupational Therapy [CONS] Routine Comment: Evaluate, develop and implement POC Reason for Consult: Weak, elderly would like to prevent further deterioration of physical strength Consult to Physical Therapy [CONS] Routine Comment: Evaluate, develop and implement POC Reason for Consult: Weak, elderly. would like to prevent further deterioration of physical strength 05/28/17 08:40 Consult to Contract Negotiation Manager [CONS] Routine Reason for SW Consult: evaluation Discharging clinician: Fermin Girard Anticipated date of discharge: 05/31/17 - Patient Status Disposition: Transfer SNF Condition: Fair Functional capacity at discharge: uses cane/walker Overall status at discharge: patient is progressing back to baseline - Discharge Instructions Instructions: Filgrastim (Injection), Clostridium Difficile Infection (DC) Follow Up With: Gavi Yung MD [Partnered Physician] - Eulogio Ureña MD [Partnered Physician] - Additional Instructions: Follow up with Dr. Ureña at [facility] for further management of neutropenia - Diet and Activity Activity: as per physical therapy, increase activity as tolerated Diet: diabetic diet, low fat, low cholesterol, low salt diet Hospital course: Ms. Hardy is a 76 year old female patient who was directly admitted from Dr. Nolen's office with concerns for worsening fungal dermatitis. Patient has a history of chronic neutropenia, diabetes, hypertension and has had previous colectomy and colostomy. She was evaluated here and was diagnosed with fungal dermatitis. Patient had been treated prior to hospitalization for with fluconazole for the same condition. However with her neutropenia and leukopenia , she had failed to monitor good immune response to get rid of her infection despite being treated with antifungals. Hematology was consulted for further recommendations and recommended patient be given Neupogen. Her ANC on initial presentation was 200. With Neupogen and her ANC has trended upwards and is 2.8 today. Her rash has not improved much despite treatment with fluconazole. But now that her leukopenia is improving, this may improve and can be managed as outpatient. Patient was also being treated for C. difficile as outpatient. She will complete her treatment for this with Flagyl on 06/02/17. Patient has been hypertensive here in the metoprolol doses has been increased to 50 mg by mouth twice daily. Her blood sugars were controlled with sliding scale insulin. At this time, patient is clinically stable for discharge. She will be discharged to long term facility for rehabilitation. She will complete continue to take Diflucan for 7 more days and will also apply topical nystatin and ketoconazole cream for her fungal dermatitis. She can follow up with hematology for further evaluation and management of chronic neutropenia/ leukopenia. The hematology recommends that we keep her neutrophil count greater than 1500. As such they recommend checking her CBC twice weekly and giving Neupogen as needed. - Time Spent with Patient Total time spent providing and/or coordinating discharge services: Greater than 30 minutes (45 min) - Constitutional Vitals: Temp Pulse Resp BP Pulse Ox 98.6 F 61 16 150/70 97 05/31/17 11:37 05/31/17 11:37 05/31/17 11:37 05/31/17 11:37 05/31/17 11:37 General appearance: Present: cooperative, A&O X 3, pleasant, no acute distress, answers questions appropriately - Neck Neck exam general surgery: Present: supple, trachea midline. Absent: lymphadenopathy - Respiratory Respiratory exam: Present: CTAB. Absent: accessory muscle use, rales, rhonchi, wheezes - Cardiovascular Cardiovascular exam: Present: RRR, +S1, +S2. Absent: diastolic murmur, gallop, rubs, systolic murmur - GI/Abdominal GI/Abdominal exam: Present: normal bowel sounds, soft, no peritoneal signs. Absent: distended, tenderness - Extremities Exam Extremities exam: Present: warm, radial pulses palpable and symetrical. Absent : calf tenderness, cyanotic, pedal edema - Skin Skin exam: Present: dry, erythema (Fungal dermatitis rash involving the skin around her colostomy site and below her breasts and inguinal folds), intact
--- NOTE | 2017-05-31 13:03 | Physician Discharge Referral ---
ExtendedCare Referral Info Provider in Charge after Transfer: PCP Institutional Level of Care: Skilled - Diagnosis (1) Fungal dermatitis Priority: Primary Status: Acute (2) Chronic neutropenia Priority: Secondary Status: Chronic (3) C. 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 Status: Chronic (5) Frail elderly Priority: Secondary Status: Chronic (6) Hypertension Priority: Secondary Status: Chronic (7) Type 2 diabetes mellitus Priority: Secondary Status: Chronic Prognosis: Fair Aware of Diagnosis: Patient, Family Aware of Prognosis: Patient, Family - Transfer Medications Prescriptions: Filgrastim [Neupogen] 300 mcg SQ DAILY PRN #10 mls PRN Reason: Neutropenia Home Medications: Glimepiride [Amaryl] 4 mg PO QAM 09/22/15 [History] Metformin [Glucophage] 1,000 mg PO BID 09/22/15 [History] Omeprazole [PriLOSEC] 20 mg PO QAM 09/22/15 [History] Amlodipine Besylate 10 mg PO DAILY 03/22/16 [History] Potassium Chloride [K-Tab ER] 20 meq PO QPM 03/22/16 [History] Calcium Citrate 400 mg PO TID 01/17/17 [History] Cholecalciferol (D-3) [Vitamin D] 2,000 unit PO DAILY 01/17/17 [History] Docusate [Colace] 100 mg PO BID 01/17/17 [History] Metoclopramide HCl 5 mg PO TID 01/17/17 [History] Sennosides [Senna] 8.6 mg PO BID 01/17/17 [History] Ferrous Sulfate 325 mg PO DAILY@0800 #30 tablet 01/20/17 [Rx] Ascorbate Calcium/Bioflavonoid [Gabriela-C 500 mg Tablet] 1 tab PO DAILY 02/12/17 [ History] Multivitamin [Multi-Day Vitamins] 1 tab PO DAILY 02/12/17 [History] Nut.tx.gluc.intoler,Lac-Fr,Soy [Glucerna 1.5 Vicente] 237 ml PO BID 02/12/17 [ History] Magnesium Oxide [Mag-Ox] 400 mg PO QAM #30 tablet 02/16/17 [Rx] Alendronate Sodium [Fosamax] 70 mg PO QWEEK 04/06/17 [History] Ondansetron [Zofran ODT] 8 mg SL Q4HR #14 tab.rapdis 05/19/17 [Rx] Acetaminophen [Tylenol] 650 mg PO Q6HR PRN tab 05/31/17 [Rx] FLUoxetine HCl [Prozac] 20 mg PO DAILY 05/31/17 [Rx] Filgrastim [Neupogen] 300 mcg SQ DAILY PRN #10 mls 05/31/17 [Rx] Fluconazole [Diflucan] 100 mg PO DAILY #7 tab 05/31/17 [Rx] Ketoconazole 2% CRM [Nizoral Cream] 1 appl TP BID 05/31/17 [Rx] Metoprolol [Lopressor] 50 mg PO BID tab 05/31/17 [Rx] Nystatin POWDER [Nystop] 1 appl TP BID bottle 05/31/17 [Rx] metroNIDAZOLE [Flagyl] 500 mg PO TIDWM 3 Days 05/31/17 [Rx] Allergies/Adverse Reactions: Allergies RODGER Inhibitors Adverse Reaction (Verified 01/17/17 13:54) See Comments UNSURE ampicillin Adverse Reaction (Verified 01/17/17 13:54) See Comments lisinopril Adverse Reaction (Verified 01/17/17 13:54) See Comments Tetracycline Adverse Reaction (Verified 01/17/17 13:54) See Comments - Respiratory Orders Smoking Cessation: Smoking cessation has been advised. For more information, call the [place] Tobacco Quit Line at 5-173-QTDQ-NOW. - Lab Orders Lab Orders: Other (include drug levels w/frequency) (CBC twice weekly (Sunday and Sunday); Please send results to [facility] Dr. Ureña) - Advance Directives Code Status: Full Code - Mobility Orders Ambulate (per PT) - Rehabiliation Orders Rehab Potential: Fair Rehab Orders: Evaluation for Physical Therapy, Evaluation for Occupational Therapy - Diet Orders Cardiac (and Diabetic) CERTIFICATION: I certify that the transfer of the above named patient to an Extended Care Facility is necessary for the continuing treatment of the diagnosis listed. The above information is true and accurate reflection of patient's current condition. Confidential - Redisclosure prohibited without a patient's written consent.
[2017-05-31 14:38] VITALS: BP 121/51
== END 2017-05-31 18:05 | DRG 607 ==
LOC: 3ANU → SUATTDRO 15:29
PROVIDERS: ADMIT Internal Medicine; ATTEND Internal Medicine

== ENCOUNTER 2017-10-03 14:50 | Inpatient (IN) ==
[2017-10-03] MEDS ORDERED: Ondansetron ODT 4 MG TAB.RAPDIS SL ONE (15:09)
--- NOTE | 2017-10-03 15:43 | Emergency Department Note ---
Disposition Clinical Impression: Hydronephrosis due to obstruction of ureter Leukopenia Qualifiers: Leukopenia type: unspecified Qualified Code(s): D72.819 - Decreased white blood cell count, unspecified Disposition: Admitted As Inpatient Condition: Fair Referrals: Philippe Scott Jr, MD [Primary Care Provider] - Forms: ED Satisfaction Letter Time of Disposition: 17:58 General Adult HPI - General Chief complaint: ED Nausea/Vomiting/Diarrhea Stated complaint: vomiting s/p kidney stent Time Seen by Provider: 10/03/17 15:06 Source: family Nursing Notes Reviewed: Yes Vital Signs Reviewed: Yes - History of Present Illness HPI Narrative: The patient presents after having a stone extraction yesterday and today she presents with vomiting, generalized abdominal pain and she does not have any complaint of fever. She does have complaint of rhinorrhea, cough, sneezing. Some intermittent blurred vision. There is unaware if she has any blood in the urine or stool. No pain or numbness of the extremities, skin rash or bruising of the skin does have a history of cancer and does have a colostomy. Social history: No smoking or alcohol. Is here with her daughter. Pain Scale: 8 - Related Data Home Medications Medication Instructions Recorded Confirmed Carbidopa/Levodopa 25/100 [Sinemet 1 each PO TID 07/20/17 10/03/17 25/100] Amlodipine Besylate 10 mg PO DAILY 10/02/17 10/03/17 Aspirin 81 mg PO DAILY 10/02/17 10/03/17 FLUoxetine HCl [Fluoxetine HCl] 40 mg PO DAILY 10/02/17 10/03/17 Glimepiride [Amaryl] 4 mg PO DAILY 10/02/17 10/03/17 Metformin HCl [Glucophage] 1,000 mg PO BID 10/02/17 10/03/17 Metoclopramide HCl 5 mg PO QID PRN 10/02/17 10/03/17 Metoprolol [Lopressor] 25 mg PO BID 10/02/17 10/03/17 Omeprazole [PriLOSEC] 20 mg PO DAILY 10/02/17 10/03/17 Potassium Chloride [K-Tab ER] 20 meq PO DAILY 10/02/17 10/03/17 Previous Rx's Medication Instructions Recorded HYDROcodone/Acet 5/325 mg [[place] 1 tab PO Q4H PRN #10 tab 10/02/17 5-325 mg] Sulfamethoxazole/Trimeth DS 1 each PO DAILY #5 tablet 10/02/17 [Bactrim DS] hydrALAZINE [HydrALAZINE] 10 mg IVP Q10MIN PRN vial 10/02/17 Allergies Allergy/AdvReac Type Severity Reaction Status Date / Time RODGER Inhibitors AdvReac See Verified 10/02/17 07:14 Comments ampicillin AdvReac See Verified 10/02/17 07:14 Comments lisinopril AdvReac See Verified 10/02/17 07:14 Comments Tetracycline AdvReac See Verified 10/02/17 07:14 Comments Review of Systems: As Per HPI Past Medical History - Past Medical History Medical history: Reports: arthritis, diabetes, GERD, hypertension, kidney stones , osteoporosis, RA, thyroid disease, valvular heart disease, other Surgical history: Reports: cataract, cholecystectomy, colectomy, colostomy, herniorrhaphy, knee replacement, ureteral stent Psychiatric history: Reports: anxiety, depression BACK END ARCHITECT history: Reports: no BACK END ARCHITECT history - Social History Smoking Status: Never smoker Smokeless Tobacco Status: No Alcohol use: Reports: none Drug use: Reports: none Physical Exam CONSTITUTIONAL: Alert and oriented X3, well-nourished, well appearing, in no apparent distress HEAD: Normocephalic; atraumatic. EYES: PERRL, no scleral icterus. NOSE: The nose is normal in appearance without rhinorrhea RESP: Normal chest excursion with respiration; breath sounds clear and equal bilaterally; no wheezes, rhonchi, or rales CARD: Regular rhythm, without murmurs, rub or gallop ABD: Non-distended; mild generalized abdominal pain but the entire abdomen is soft,without rigidity, rebound or guarding. Colostomy in place with brown stool. No gross blood is seen. SKIN: Normal for age and race; warm and dry; no apparent lesions - General General appearance: alert Course Vital Signs Temperature 97.2 F L 10/03/17 14:58 Pulse Rate 150 10/03/17 14:58 Respiratory Rate 20 10/03/17 14:58 Blood Pressure 155/81 10/03/17 14:58 O2 Sat by Pulse Oximetry 94 10/03/17 14:58 Temperature 97.2 F L 10/03/17 14:58 Pulse Rate 62 10/03/17 16:30 Respiratory Rate 30 11/22/17 16:30 Blood Pressure 189/72 10/03/17 16:30 O2 Sat by Pulse Oximetry 98 10/03/17 16:30 Oxygen Delivery Oxygen Delivery Room Air Medical Decision Making - MDM Narrative Medical decision making narrative: I did review the patient's previous record, labs are ordered, IV fluids, cultures are ordered. Results are pending and she is mentating well. I did review the previous CT results. The patient's current heart rate is 68 bpm. [id number] I did review the patient's labs. She does have leukopenia which is not new, previous lab values. The patient has improved however it is concerning that her lactate is 3.2. CT scan showing hydronephrosis. I did speak with from urology who agrees with admission to the hospitalist service and agrees that no antibiotics are indicated at this time . I did speak with Dr. moreno who accept the patient for admission and she will be hydrated and followed further. [id number] - Medical Records Medical records reviewed: Yes I reviewed the patient's medical records. - Lab Data Result diagrams: 10/03/17 16:06 10/03/17 16:06 Lab Results 10/03/17 10/03/17 10/03/17 Range/Units 16:06 16:06 16:06 WBC 2.0 L (4.3-11.1) K/mcL RBC 4.04 (3.82-4.97) M/mcL Hgb 12.5 (11.5-15.4) g/dL Hct 37.4 (35.3-44.9) % MCV 92.6 (83.0-100.0) fL MCH 30.9 (28.0-33.3) pg MCHC 33.4 (31.6-35.5) g/dL RDW 12.0 (11.5-14.5) % Plt Count 204 (140-400) K/mcL MPV 10.1 (9.4-12.4) fL Sodium 136 (136-145) mEq/L Potassium 4.1 (3.5-4.5) mEq/L Chloride 99 (98-109) mEq/L Carbon Dioxide 25 (19-29) mEq/L BUN 12 (7-20) mg/dL Creatinine 0.80 (0.57-1.11) mg/dL Est GFR ( Amer) > 60 (> 60) Est GFR (Non-Af Amer) > 60 (> 60) BUN/Creatinine Ratio 15 (6-26) Glucose 143 H (70-99) mg/dL Calculated Osmolality 284 (280-300) Lactic Acid 3.2 H (0.5-2.2) mmol/L Calcium 9.9 (8.6-10.8) mg/dL Total Bilirubin 0.4 (0.2-1.2) mg/dL Direct Bilirubin 0.2 (0.0-0.5) mg/dL Indirect Bilirubin 0.2 (0.0-1.2) mg/dL AST 8 (5-34) Units/L ALT < 6 (0-55) Units/L Alkaline Phosphatase 87 (38-126) Units/L Troponin I (0-0.03) ng/mL Serum Total Protein 7.4 (6.0-8.3) g/dL Albumin 2.9 L (3.5-5.0) g/dL Globulin 4.5 H (2.4-3.5) g/dL Albumin/Globulin Ratio 0.6 L (1.1-2.2) Lipase 11 (8-78) Units/L Urine Color (Yellow) Urine Clarity (Clear) Urine pH (5.0-8.0) pH Units Ur Specific [place] (1.010-1.025) Urine Protein (Neg-Trace) mg/dL Urine Glucose (UA) (Normal) mg/dL Urine Ketones (Negative) mg/dL Urine Blood (Negative) Urine Nitrite (Negative) Urine Bilirubin (Negative) Urine Urobilinogen (Normal) mg/dL Ur Leukocyte Esterase (Negative) Urine Microscopic RBC (0-3) per hpf Urine Microscopic WBC (0-3) per hpf Ur Squamous Epith Cells (None-Few) per lpf Urine Bacteria (None-Few) per hpf Hyaline Casts (None-Few) per lpf 10/03/17 10/03/17 Range/Units 16:06 17:04 WBC (4.3-11.1) K/mcL RBC (3.82-4.97) M/mcL Hgb (11.5-15.4) g/dL Hct (35.3-44.9) % MCV (83.0-100.0) fL MCH (28.0-33.3) pg MCHC (31.6-35.5) g/dL RDW (11.5-14.5) % Plt Count (140-400) K/mcL MPV (9.4-12.4) fL Sodium (136-145) mEq/L Potassium (3.5-4.5) mEq/L Chloride (98-109) mEq/L Carbon Dioxide (19-29) mEq/L BUN (7-20) mg/dL Creatinine (0.57-1.11) mg/dL Est GFR ( Amer) (> 60) Est GFR (Non-Af Amer) (> 60) BUN/Creatinine Ratio (6-26) Glucose (70-99) mg/dL Calculated Osmolality (280-300) Lactic Acid (0.5-2.2) mmol/L Calcium (8.6-10.8) mg/dL Total Bilirubin (0.2-1.2) mg/dL Direct Bilirubin (0.0-0.5) mg/dL Indirect Bilirubin (0.0-1.2) mg/dL AST (5-34) Units/L ALT (0-55) Units/L Alkaline Phosphatase (38-126) Units/L Troponin I 0.01 (0-0.03) ng/mL Serum Total Protein (6.0-8.3) g/dL Albumin (3.5-5.0) g/dL Globulin (2.4-3.5) g/dL Albumin/Globulin Ratio (1.1-2.2) Lipase (8-78) Units/L Urine Color Yellow (Yellow) Urine Clarity Clear (Clear) Urine pH 6.5 (5.0-8.0) pH Units Ur Specific [place] 1.019 (1.010-1.025) Urine Protein 100 H (Neg-Trace) mg/dL Urine Glucose (UA) Normal (Normal) mg/dL Urine Ketones Negative (Negative) mg/dL Urine Blood Large H (Negative) Urine Nitrite Negative (Negative) Urine Bilirubin Negative (Negative) Urine Urobilinogen Normal (Normal) mg/dL Ur Leukocyte Esterase Negative (Negative) Urine Microscopic RBC TNTC H (0-3) per hpf Urine Microscopic WBC 3-5 H (0-3) per hpf Ur Squamous Epith Cells Many H (None-Few) per lpf Urine Bacteria None Seen (None-Few) per hpf Hyaline Casts None Seen (None-Few) per lpf - Radiology Data Radiology results reviewed: Yes I reviewed the patient's radiology results.
[2017-10-03] MEDS: 0.9 % Sodium Chloride 1,000 ML IVC SCH ×3 (16:05→23:49)
[2017-10-03 16:16] LABS: Hematocrit 37.4 % (35.3-44.9); Hemoglobin 12.5 g/dL (11.5-15.4); Mean Corpuscular HGB Conc 33.4 g/dL (31.6-35.5); Mean Corpuscular Hemoglobin 30.9 pg (28.0-33.3); Mean Corpuscular Volume 92.6 fL (83.0-100.0); Mean Platelet Volume 10.1 fL (9.4-12.4); Platelet Count 204 K/mcL (140-400); Red Blood Count 4.04 M/mcL (3.82-4.97)
[2017-10-03 16:33] LABS: Alanine Aminotransferase < 6 Units/L (0-55); Albumin 2.9 g/dL (3.5-5.0); Albumin/Globulin Ratio 0.6 (1.1-2.2); Alkaline Phosphatase 87 Units/L (38-126); Aspartate Amino Transferase 8 Units/L (5-34); BUN/Creatinine Ratio 15 (6-26); Bilirubin,Direct 0.2 mg/dL (0.0-0.5); Bilirubin,Indirect 0.2 mg/dL (0.0-1.2); Bilirubin,Total 0.4 mg/dL (0.2-1.2); Blood Urea Nitrogen 12 mg/dL (7-20); Calcium 9.9 mg/dL (8.6-10.8); Carbon Dioxide 25 mEq/L (19-29); Chloride 99 mEq/L (98-109); Globulin 4.5 g/dL (2.4-3.5); Glucose 143 mg/dL (70-99); Lipase 11 Units/L (8-78); Osmolality,Calculated 284 (280-300); Potassium 4.1 mEq/L (3.5-4.5); Sodium 136 mEq/L (136-145); Total Protein 7.4 g/dL (6.0-8.3); eGFR For African Americans > 60 (> 60); eGFR For Non-African Americans > 60 (> 60)
[2017-10-03 17:10] LABS: Bilirubin,Urine Negative (Negative); Blood,Urine Large (Negative); Clarity,Urine Clear (Clear); Color,Urine Yellow (Yellow); Glucose,Urine (UA) Normal (Normal); Ketones,Urine Negative (Negative); Leukocyte Esterase,Urine Negative (Negative); Nitrite,Urine Negative (Negative); PH,Urine 6.5 pH Units (5.0-8.0); Protein,Urine 100 mg/dL (Neg-Trace); Specific Gravity,Urine 1.019 (1.010-1.025); Urobilinogen,Urine Normal (Normal)
[2017-10-03 17:12] LABS: Bacteria,Urine None Seen per hpf (None-Few); Hyaline Casts,Urine None Seen per lpf (None-Few); RBC,Urine TNTC per hpf (0-3); Squamous Epithelial Cell,Urine Many per lpf (None-Few)
[2017-10-03] MEDS: Ondansetron 4 MG/2 ML VIAL IVP PRN (22:00)
[2017-10-03] MEDS ORDERED: *HR* Morphine 2 MG/ML SYRINGE IVP PRN (22:42)
[2017-10-03] MEDS ORDERED: Acetaminophen 325 MG TABLET PO PRN (22:42)
[2017-10-03] MEDS ORDERED: Naloxone 0.4 MG/ML INJ IVP PRN (22:42)
[2017-10-03] MEDS ORDERED: *HR* HYDROcodone/Acet 5/325 mg TABLET PO PRN (22:42)
[2017-10-03] MEDS ORDERED: *HR* Dextrose 50 % in Water (Syg) 50 ML SYRINGE IVP PRN (22:45)
[2017-10-03] MEDS ORDERED: Dextrose Gel 15 GM PO PRN ×2 (22:45)
[2017-10-03] MEDS ORDERED: D5% in Water 1,000 ML IVC PRN (22:45)
--- NOTE | 2017-10-03 23:14 | Internal Med History&Physical ---
Date of Encounter: 10/04/17 Time of Encounter: 23:14 Assessment and Plan (1) Intractable nausea and vomiting Current visit: Yes Status: Acute Could be secondary to pyelonephritis versus kidney stones could also be related to his her recent procedure, secondary to peptic ulcer disease or gastroenteritis. We will provide supportive care. IV fluids. IV Zofran for nausea. IV morphine for pain. Start clear liquid diet and advance as tolerated. She is at high risk for morbidity mortality and complications due to treatment with IV opiates. Qualifiers: Vomiting type: unspecified Qualified Code(s): R11.2 - Nausea with vomiting , unspecified (2) Essential hypertension Current visit: Yes Status: Acute Continue with amlodipine and metoprolol. (3) Nephrolithiasis Current visit: No Status: Acute Status post lithotripsy done yesterday. We will consult urology. (4) Type 2 diabetes mellitus Current visit: No Status: Chronic Insulin sliding scale. Qualifiers: Diabetes mellitus complication status: with unspecified complications Diabetes mellitus extermination inspector insulin use: without extermination inspector use Qualified Code( s): E11.8 - Type 2 diabetes mellitus with unspecified complications Internal Medicine - H&P: HPI Chief complaint: Nausea vomiting and abdominal pain Admitted From: Emergency Dept Plans for Post Hospital Care: Home History of present illness: Ms. Hardy is a 77 year old female with past medical history significant for hypertension, kidney stones, diabetes and Parkinson's disease who had lithotripsy the day prior to presentation and came to the hospital for evaluation of intractable nausea and vomiting. She reports 24 hours of multiple episodes of nonbilious nonbloody vomitus associated with abdominal pain after each attempt to have any food. In the emergency department she was found to be dehydrated and was given IV fluids. Family history was reviewed and found to be noncontributory to this presentation. Social history: Patient denies tobacco alcohol or drug use. Lives at home independently. Past Med Surg Social Fam HX - Past Medical History Medical history: arthritis, diabetes, GERD, hypertension, kidney stones, osteoporosis, RA, thyroid disease, valvular heart disease, other Psychiatric history: anxiety, depression - Past Surgical History Surgical History: cataract, cholecystectomy, colectomy, colostomy, herniorrhaphy , knee replacement, ureteral stent - Social History Smoking Status: Never smoker Smokeless Tobacco Status: No Alcohol use: none Drug use: none - Family History Son Adopted: No Living Status: Still Living Hx Family Cardiac Disorders: No Hx Family Respiratory Disorders: Yes Hx Family Cancer: No Hx Family GI Disorders: No Hx Family Endocrine Disorder: No Hx Family Neuromuscular Disorders: No Hx Family Neurologic Disorders: No Hx Family HEENT Disorders: No Hx Family Autoimmune Disorders: Yes (Autoimmune dx, unable to remember name) Father Living Status: Hx Family Cardiac Disorders: Yes ([place], HD, HTN) Mother Living Status: Hx Family Cardiac Disorders: Yes (HD) Brother Living Status: Hx Family Cardiac Disorders: Yes ([place], HD) Internal Medicine - H&P: Meds Carbidopa/Levodopa 25/100 [Sinemet 25/100] 1 each PO TID 07/20/17 [History] Amlodipine Besylate 10 mg PO DAILY 10/02/17 [History] Aspirin 81 mg PO DAILY 10/02/17 [History] FLUoxetine HCl [Fluoxetine HCl] 40 mg PO DAILY 10/02/17 [History] Glimepiride [Amaryl] 4 mg PO DAILY 10/02/17 [History] HYDROcodone/Acet 5/325 mg [[place] 5-325 mg] 1 tab PO Q4H PRN #10 tab 10/02/17 [Rx ] Metformin HCl [Glucophage] 1,000 mg PO BID 10/02/17 [History] Metoclopramide HCl 5 mg PO QID PRN 10/02/17 [History] Metoprolol [Lopressor] 25 mg PO BID 10/02/17 [History] Omeprazole [PriLOSEC] 20 mg PO DAILY 10/02/17 [History] Potassium Chloride [K-Tab ER] 20 meq PO DAILY 10/02/17 [History] Sulfamethoxazole/Trimeth DS [Bactrim DS] 1 each PO DAILY #5 tablet 10/02/17 [Rx] hydrALAZINE [HydrALAZINE] 10 mg IVP Q10MIN PRN vial 10/02/17 [Rx] 3 Allergy/AdvReac Type Severity Reaction Status Date / Time RODGER Inhibitors AdvReac See Verified 10/02/17 07:14 Comments ampicillin AdvReac See Verified 10/02/17 07:14 Comments lisinopril AdvReac See Verified 10/02/17 07:14 Comments Tetracycline AdvReac See Verified 10/02/17 07:14 Comments All Systems PM: A 10-system review of systems was performed and is negative for pertinent findings except as documented above in the HPI. - Constitutional Vitals: Temp Pulse Resp BP Pulse Ox 98.1 F 66 12 157/72 95 10/03/17 19:21 10/03/17 19:21 10/03/17 19:21 10/03/17 19:21 10/03/17 19:21 General appearance: Present: A&O X 3, no acute distress - Eye Eye exam: Present: PERRL, conjuntiva pink, sclera anicteric Pupils: Present: PERRL - Respiratory Respiratory exam: Present: CTAB. Absent: accessory muscle use, rales, rhonchi, wheezes - Cardiovascular Cardiovascular exam: Present: RRR, +S1, +S2. Absent: diastolic murmur, gallop, rubs, systolic murmur - GI/Abdominal GI/Abdominal exam: Present: normal bowel sounds, soft, no peritoneal signs. Absent: distended, tenderness - Extremities Exam Extremities exam: Present: warm, radial pulses palpable and symmetrical. Absent : calf tenderness, cyanotic, pedal edema - Skin Skin exam: Present: dry, intact Internal Med - H&P Results - Labs CBC & Chem 7: 10/04/17 04:24 10/04/17 04:24
[2017-10-03] MEDS: Carbidopa/Levodopa 25/100 TABLET PO SCH (23:48)
[2017-10-03] MEDS: Insulin LISPRO 300 UNITS/3 ML VIAL SQ SCH (23:52)
[2017-10-04 04:38] LABS: Basophils % 1.2 %; Eosinophils # 0.2 K/mcL (0.0-0.6); Eosinophils % 9.6 %; Hematocrit 31.2 % (35.3-44.9); Immature Granulocytes % 0.6 % (0-4); Lymphocytes # 0.9 K/mcL (0.6-4.6); Lymphocytes % 54.2 %; Mean Corpuscular HGB Conc 33.7 g/dL (31.6-35.5); Mean Corpuscular Hemoglobin 31.3 pg (28.0-33.3); Mean Corpuscular Volume 92.9 fL (83.0-100.0); Mean Platelet Volume 10.6 fL (9.4-12.4); Monocytes # 0.4 K/mcL (0.0-1.3); Monocytes % 24.7 %; Neutrophils # 0.2 K/mcL (1.6-8.9); Platelet Count 173 K/mcL (140-400); Red Blood Count 3.36 M/mcL (3.82-4.97); Red Cell Distribution Width 12.2 % (11.5-14.5); Segmented Neutrophils % 9.7 %
[2017-10-04 04:39] LABS: Hemoglobin 10.5 g/dL (11.5-15.4)
[2017-10-04 04:46] LABS: BUN/Creatinine Ratio 12 (6-26); Blood Urea Nitrogen 9 mg/dL (7-20); Calcium 9.2 mg/dL (8.6-10.8); Carbon Dioxide 24 mEq/L (19-29); Chloride 108 mEq/L (98-109); Glucose 101 mg/dL (70-99); Magnesium 1.1 mg/dL (1.6-2.6); Osmolality,Calculated 287 (280-300); Sodium 139 mEq/L (136-145); eGFR For African Americans > 60 (> 60); eGFR For Non-African Americans > 60 (> 60)
[2017-10-04 05:06] LABS: Platelet Estimate Normal (Normal)
[2017-10-04] MEDS: Insulin LISPRO 300 UNITS/3 ML VIAL SQ SCH ×4 (06:09→20:44)
[2017-10-04] MEDS: FLUoxetine 20 MG CAPSULE PO SCH (08:41)
[2017-10-04] MEDS: Carbidopa/Levodopa 25/100 TABLET PO SCH ×3 (08:41→20:00)
[2017-10-04] MEDS: Sulfamethoxazole/Trimeth DS 1 EACH TABLET PO SCH (08:41)
[2017-10-04] MEDS: amLODIPine 5 MG TABLET PO SCH (08:42)
[2017-10-04] MEDS: Aspirin 81 MG TAB.CHEW PO SCH (08:42)
--- NOTE | 2017-10-04 09:38 | Urology - Consult Note ---
Date of Encounter: 10/04/17 Time of Encounter: 09:36 - Assessment and Plan (1) Hydronephrosis due to obstruction of ureter Current Visit: Yes Status: Acute Assessment and plan: Patient has passed multiple stones since being admitted. I believe the distal [place] has resolved. I will allow the patient to eat today. I will follow-up with the patient tomorrow. If pain returns will need KUB. (2) Intractable nausea and vomiting Current Visit: Yes Status: Acute Assessment and plan: Resolving at this time. Qualifiers: Vomiting type: unspecified Qualified Code(s): R11.2 - Nausea with vomiting , unspecified Urology CN:HPI Consult date: 10/04/17 Reason for consult Urology: Hydronephrosis Requesting physician: Robb Talley History of present illness: Sheree is a 77-year-old female with a history of right ESWL done on Sunday. Patient presented to the hospital last night secondary to severe right-sided flank pain with persistent nausea and vomiting. CT scan was done which revealed distal Moe Ryan. Patient has passed multiple stones since been admitted last evening. She states that she does feel much better. She would like to try some food. Past Med Surg Social Fam HX - Past Medical History Medical history: arthritis, diabetes, GERD, hypertension, kidney stones, osteoporosis, RA, thyroid disease, valvular heart disease, other Psychiatric history: anxiety, depression - Past Surgical History Surgical History: cataract, cholecystectomy, colectomy, colostomy, herniorrhaphy , knee replacement, ureteral stent - Social History Smoking Status: Never smoker Smokeless Tobacco Status: No Alcohol use: none Drug use: none - Family History Son Adopted: No Living Status: Still Living Hx Family Cardiac Disorders: No Hx Family Respiratory Disorders: Yes Hx Family Cancer: No Hx Family GI Disorders: No Hx Family Endocrine Disorder: No Hx Family Neuromuscular Disorders: No Hx Family Neurologic Disorders: No Hx Family HEENT Disorders: No Hx Family Autoimmune Disorders: Yes (Autoimmune dx, unable to remember name) Father Living Status: Hx Family Cardiac Disorders: Yes ([place], HD, HTN) Mother Living Status: Cause of : HD Hx Family Cardiac Disorders: Yes (HD) Brother Living Status: Age at : 49 Cause of : MD Hx Family Cardiac Disorders: Yes (MD, HD) Medications and Allergies Carbidopa/Levodopa 25/100 [Sinemet 25/100] 1 each PO TID 07/20/17 [History] Amlodipine Besylate 10 mg PO DAILY 10/02/17 [History] Aspirin 81 mg PO DAILY 10/02/17 [History] FLUoxetine HCl [Fluoxetine HCl] 40 mg PO DAILY 10/02/17 [History] Glimepiride [Amaryl] 4 mg PO DAILY 10/02/17 [History] HYDROcodone/Acet 5/325 mg [[place] 5-325 mg] 1 tab PO Q4H PRN #10 tab 10/02/17 [Rx ] Metformin HCl [Glucophage] 1,000 mg PO BID 10/02/17 [History] Metoclopramide HCl 5 mg PO QID PRN 10/02/17 [History] Metoprolol [Lopressor] 25 mg PO BID 10/02/17 [History] Omeprazole [PriLOSEC] 20 mg PO DAILY 10/02/17 [History] Potassium Chloride [K-Tab ER] 20 meq PO DAILY 10/02/17 [History] Sulfamethoxazole/Trimeth DS [Bactrim DS] 1 each PO DAILY #5 tablet 10/02/17 [Rx] hydrALAZINE [HydrALAZINE] 10 mg IVP Q10MIN PRN vial 10/02/17 [Rx] 3 Allergy/AdvReac Type Severity Reaction Status Date / Time RODGER Inhibitors AdvReac See Verified 10/02/17 07:14 Comments ampicillin AdvReac See Verified 10/02/17 07:14 Comments lisinopril AdvReac See Verified 10/02/17 07:14 Comments Tetracycline AdvReac See Verified 10/02/17 07:14 Comments Review of Systems - Constitutional no chills, no fever(s) - EENT Nose, mouth and throat: no dizziness - Cardiovascular no chest pain - Respiratory no cough - Gastrointestinal no abdominal pain Exam Initial Vital Signs Temp Pulse Resp BP Pulse Ox 97.2 F L 150 20 155/81 94 10/03/17 14:58 10/03/17 14:58 10/03/17 14:58 10/03/17 14:58 10/03/17 14:58 - General physical appearance Present: well developed - Respiratory Present: normal respiratory effort - Cardiovascular Cardiovascular exam IM: RRR - Abdomen Abdomen: Present: soft Urology Results - Labs 10/04/17 04:24 11/23/17 04:24 Abnormal lab results WBC 1.7 K/mcL (4.3-11.1) L 10/04/17 04:24 RBC 3.36 M/mcL (3.82-4.97) L 10/04/17 04:24 Hgb 10.5 g/dL (11.5-15.4) L D 10/04/17 04:24 Hct 31.2 % (35.3-44.9) L 10/04/17 04:24 Neutrophils # 0.2 K/mcL (1.6-8.9) L 10/04/17 04:24 Glucose 101 mg/dL (70-99) H 10/04/17 04:24 Magnesium 1.1 mg/dL (1.6-2.6) L 10/04/17 04:24 Albumin 2.9 g/dL (3.5-5.0) L 10/03/17 16:06 Globulin 4.5 g/dL (2.4-3.5) H 10/03/17 16:06 Albumin/Globulin Ratio 0.6 (1.1-2.2) L 10/03/17 16:06 Urine Protein 100 mg/dL (Neg-Trace) H 10/03/17 17:04 Urine Blood Large (Negative) H 10/03/17 17:04 Urine Microscopic RBC TNTC per hpf (0-3) H 10/03/17 17:04 Urine Microscopic WBC 3-5 per hpf (0-3) H 10/03/17 17:04 Ur Squamous Epith Cells Many per lpf (None-Few) H 10/03/17 17:04 Diabetes panel 10/04/17 Range/Units 04:24 Sodium 139 (136-145) mEq/L Potassium 4.0 (3.5-4.5) mEq/L Chloride 108 (98-109) mEq/L Carbon Dioxide 24 (19-29) mEq/L BUN 9 (7-20) mg/dL Creatinine 0.74 (0.57-1.11) mg/dL Glucose 101 H (70-99) mg/dL Calcium 9.2 (8.6-10.8) mg/dL Calcium panel 10/04/17 Range/Units 04:24 Calcium 9.2 (8.6-10.8) mg/dL Pituitary panel 10/04/17 Range/Units 04:24 Sodium 139 (136-145) mEq/L Potassium 4.0 (3.5-4.5) mEq/L Chloride 108 (98-109) mEq/L Carbon Dioxide 24 (19-29) mEq/L BUN 9 (7-20) mg/dL Creatinine 0.74 (0.57-1.11) mg/dL Glucose 101 H (70-99) mg/dL Calcium 9.2 (8.6-10.8) mg/dL Adrenal panel 10/04/17 Range/Units 04:24 Sodium 139 (136-145) mEq/L Potassium 4.0 (3.5-4.5) mEq/L Chloride 108 (98-109) mEq/L Carbon Dioxide 24 (19-29) mEq/L BUN 9 (7-20) mg/dL Creatinine 0.74 (0.57-1.11) mg/dL Glucose 101 H (70-99) mg/dL Calcium 9.2 (8.6-10.8) mg/dL All other labs normal. - Imaging CT scan - abdomen: image reviewed CT scan - pelvis: image reviewed Consult Discharge Plan - Plan Referrals: Philippe Scott Jr, MD [Primary Care Provider] -
[2017-10-04] MEDS: 0.9 % Sodium Chloride 1,000 ML IVC SCH (12:37)
--- NOTE | 2017-10-04 21:31 | Internal Med Progress Note ---
Date of Encounter: 10/04/17 Time of Encounter: 17:29 - Assessment and plan (1) Intractable nausea and vomiting Current Visit: Yes Status: Acute Assessment and plan: Likely from nephrolithiasis. Continue supportive care. ADAT. Qualifiers: Vomiting type: unspecified Qualified Code(s): R11.2 - Nausea with vomiting , unspecified (2) Nephrolithiasis Current Visit: No Status: Acute (3) Chronic neutropenia Current Visit: No Status: Chronic Assessment and plan: Stable. Reviewed previous documentations in EMR chart. This is known condition for her since 2000, she was seen by Heme/Onc within past year. Will place on neutropenic precautions. If acutely changes or she develops signs of infection, will place her on broad spectrum antibiotics. (4) Hypertension Current Visit: No Status: Chronic Assessment and plan: Resume Norvasc. Qualifiers: Hypertension type: essential hypertension Qualified Code(s): I10 - Essential (primary) hypertension (5) Anemia Current Visit: No Status: Chronic Qualifiers: Anemia type: iron deficiency Iron deficiency anemia type: other iron deficiency Qualified Code(s): D50.8 - Other iron deficiency anemias (6) Dementia Current Visit: No Status: Acute Qualifiers: Dementia type: unspecified type Dementia behavioral disturbance: without behavioral disturbance Qualified Code(s): F03.90 - Unspecified dementia without behavioral disturbance (7) Diabetes Current Visit: No Status: Chronic Qualifiers: Diabetes mellitus type: type 2 Diabetes mellitus complication status: with unspecified complications Diabetes mellitus retirement insulin use: without retirement use Qualified Code(s): E11.8 - Type 2 diabetes mellitus with unspecified complications (8) GERD (gastroesophageal reflux disease) Current Visit: No Status: Chronic Qualifiers: Esophagitis presence: esophagitis presence not specified Qualified Code(s) : K21.9 - Gastro-esophageal reflux disease without esophagitis (9) Rheumatoid arthritis Current Visit: No Status: Acute Qualifiers: Rheumatoid arthritis location: multiple sites Rheumatoid factor presence: unspecified presence Qualified Code(s): M06.9 - Rheumatoid arthritis, unspecified - Subjective Interval history: No complaints. She is passing multiple stones. N/V present but not as bad as during initial ED visit. - Constitutional Vitals: Temp Pulse Resp BP Pulse Ox 98.1 F 61 17 129/62 95 10/04/17 18:38 10/04/17 18:38 10/04/17 18:38 10/04/17 18:38 10/04/17 18:38 General appearance: Present: A&O X 3, no acute distress Exam: - Eye Eye exam: Present: PERRL, conjuntiva pink, sclera anicteric Pupils: Present: PERRL - Respiratory Respiratory exam: Present: CTAB. Absent: accessory muscle use, rales, rhonchi, wheezes - Cardiovascular Cardiovascular exam: Present: RRR, +S1, +S2. Absent: diastolic murmur, gallop, rubs, systolic murmur - GI/Abdominal GI/Abdominal exam: Present: normal bowel sounds, soft, no peritoneal signs. Absent: distended, tenderness - Extremities Exam Extremities exam: Present: warm, radial pulses palpable and symmetrical. Absent : calf tenderness, cyanotic, pedal edema - Skin Skin exam: Present: dry, intact Internal Medicine: Result - Labs CBC & Chem 7: 10/04/17 04:24 10/04/17 04:24 Labs: Short CBC 10/04/17 Range/Units 04:24 WBC 1.7 L (4.3-11.1) K/mcL Hgb 10.5 L D (11.5-15.4) g/dL Hct 31.2 L (35.3-44.9) % Plt Count 173 (140-400) K/mcL Neutrophils # 0.2 L (1.6-8.9) K/mcL BMP 10/04/17 04:24 Sodium 139 Potassium 4.0 Chloride 108 Carbon Dioxide 24 BUN 9 Creatinine 0.74 Glucose 101 H Calcium 9.2 Consult Discharge Plan - Plan Referrals: Philippe Scott Jr, MD [Primary Care Provider] - (web request sent on 10/04/17)
[2017-10-05 04:41] LABS: Basophils % 1.3 %; Eosinophils # 0.2 K/mcL (0.0-0.6); Eosinophils % 14.1 %; Hematocrit 32.8 % (35.3-44.9); Hemoglobin 10.8 g/dL (11.5-15.4); Lymphocytes % 46.8 %; Mean Corpuscular HGB Conc 32.9 g/dL (31.6-35.5); Mean Corpuscular Hemoglobin 31.2 pg (28.0-33.3); Mean Corpuscular Volume 94.8 fL (83.0-100.0); Mean Platelet Volume 10.2 fL (9.4-12.4); Monocytes # 0.4 K/mcL (0.0-1.3); Monocytes % 24.4 %; Neutrophils # 0.2 K/mcL (1.6-8.9); Platelet Count 182 K/mcL (140-400); Red Blood Count 3.46 M/mcL (3.82-4.97); Red Cell Distribution Width 12.2 % (11.5-14.5); Segmented Neutrophils % 13.4 %
[2017-10-05 04:54] LABS: BUN/Creatinine Ratio 11 (6-26); Blood Urea Nitrogen 8 mg/dL (7-20); Calcium 9.2 mg/dL (8.6-10.8); Carbon Dioxide 22 mEq/L (19-29); Chloride 108 mEq/L (98-109); Glucose 120 mg/dL (70-99); Osmolality,Calculated 284 (280-300); Potassium 3.8 mEq/L (3.5-4.5); Sodium 137 mEq/L (136-145); eGFR For African Americans > 60 (> 60); eGFR For Non-African Americans > 60 (> 60)
[2017-10-05 05:16] LABS: Lymphocytes # 0.8 K/mcL (0.6-4.6)
[2017-10-05 05:28] LABS: Platelet Estimate Normal (Normal)
[2017-10-05] MEDS: Insulin LISPRO 300 UNITS/3 ML VIAL SQ SCH ×4 (07:42→20:52)
[2017-10-05] MEDS: amLODIPine 5 MG TABLET PO SCH (07:57)
[2017-10-05] MEDS: Aspirin 81 MG TAB.CHEW PO SCH (07:57)
[2017-10-05] MEDS: FLUoxetine 20 MG CAPSULE PO SCH (07:57)
[2017-10-05] MEDS: Carbidopa/Levodopa 25/100 TABLET PO SCH ×3 (07:57→20:52)
[2017-10-05] MEDS: Sulfamethoxazole/Trimeth DS 1 EACH TABLET PO SCH (07:57)
--- NOTE | 2017-10-05 09:11 | Urology Progress Note ---
Date of Encounter: 10/05/17 Time of Encounter: 09:10 - Assessment and Plan (1) Hydronephrosis due to obstruction of ureter Current Visit: Yes Status: Acute Assessment and plan: will get stat kub to eval for residual stones. If unable to see any stones will repeat CT scan. (2) Intractable nausea and vomiting Current Visit: Yes Status: Acute Qualifiers: Vomiting type: unspecified Qualified Code(s): R11.2 - Nausea with vomiting , unspecified Progress Note Narrative: patient seen. patient with some confusion this am. + nausea. no vomitting. no fevers. Objective Initial Vital Signs Temp Pulse Resp BP Pulse Ox 97.2 F L 150 20 155/81 94 10/03/17 14:58 10/03/17 14:58 10/03/17 14:58 10/03/17 14:58 10/03/17 14:58 - General physical appearance Present: well developed - Abdomen Present: soft - Labs 10/05/17 04:28 10/05/17 04:28 Diabetes panel 10/05/17 Range/Units 04:28 Sodium 137 (136-145) mEq/L Potassium 3.8 (3.5-4.5) mEq/L Chloride 108 (98-109) mEq/L Carbon Dioxide 22 (19-29) mEq/L BUN 8 (7-20) mg/dL Creatinine 0.72 (0.57-1.11) mg/dL Glucose 120 H (70-99) mg/dL Calcium 9.2 (8.6-10.8) mg/dL Calcium panel 10/05/17 Range/Units 04:28 Calcium 9.2 (8.6-10.8) mg/dL Pituitary panel 10/05/17 Range/Units 04:28 Sodium 137 (136-145) mEq/L Potassium 3.8 (3.5-4.5) mEq/L Chloride 108 (98-109) mEq/L Carbon Dioxide 22 (19-29) mEq/L BUN 8 (7-20) mg/dL Creatinine 0.72 (0.57-1.11) mg/dL Glucose 120 H (70-99) mg/dL Calcium 9.2 (8.6-10.8) mg/dL Adrenal panel 10/05/17 Range/Units 04:28 Sodium 137 (136-145) mEq/L Potassium 3.8 (3.5-4.5) mEq/L Chloride 108 (98-109) mEq/L Carbon Dioxide 22 (19-29) mEq/L BUN 8 (7-20) mg/dL Creatinine 0.72 (0.57-1.11) mg/dL Glucose 120 H (70-99) mg/dL Calcium 9.2 (8.6-10.8) mg/dL Consult Discharge Plan - Plan Referrals: Philippe Scott Jr, MD [Primary Care Provider] - (web request sent on 10/04/17)
[2017-10-05] MEDS: Ondansetron 4 MG/2 ML VIAL IVP PRN (12:36)
[2017-10-05] MEDS: *HR* Promethazine 25 MG/ML VIAL IVP PRN (14:55)
--- NOTE | 2017-10-05 15:51 | Event Note ---
Date of Encounter: 10/05/17 Time of Encounter: 15:[address] reviewed. patient has passed all of her ureteral stones. unsure why patient still with nausea. may not be urological in nature. will continue to follow.
--- NOTE | 2017-10-05 18:15 | Internal Med Progress Note ---
Date of Encounter: 10/05/17 Time of Encounter: 18:13 - Assessment and plan (1) Intractable nausea and vomiting Current Visit: Yes Status: Acute Assessment and plan: After CT of abdomen/pelvis done, shows less due to nephrolithiasis as patient did clear stones. Given onset acute nature will get abdominal ultrasound RUQ to evaluate any hepatobiliary process, trial of carafate for gastritis/PUD. Not that patient is already taking a ppi. Qualifiers: Vomiting type: unspecified Qualified Code(s): R11.2 - Nausea with vomiting , unspecified (2) Nephrolithiasis Current Visit: No Status: Acute (3) Chronic neutropenia Current Visit: No Status: Chronic (4) Hypertension Current Visit: No Status: Chronic Qualifiers: Hypertension type: essential hypertension Qualified Code(s): I10 - Essential (primary) hypertension (5) Anemia Current Visit: No Status: Chronic Qualifiers: Anemia type: iron deficiency Iron deficiency anemia type: other iron deficiency Qualified Code(s): D50.8 - Other iron deficiency anemias (6) Dementia Current Visit: No Status: Acute Qualifiers: Dementia type: unspecified type Dementia behavioral disturbance: without behavioral disturbance Qualified Code(s): F03.90 - Unspecified dementia without behavioral disturbance (7) Diabetes Current Visit: No Status: Chronic Qualifiers: Diabetes mellitus type: type 2 Diabetes mellitus complication status: with unspecified complications Diabetes mellitus exterminator helper insulin use: without exterminator helper use Qualified Code(s): E11.8 - Type 2 diabetes mellitus with unspecified complications (8) GERD (gastroesophageal reflux disease) Current Visit: No Status: Chronic Qualifiers: Esophagitis presence: esophagitis presence not specified Qualified Code(s) : K21.9 - Gastro-esophageal reflux disease without esophagitis (9) Rheumatoid arthritis Current Visit: No Status: Acute Qualifiers: Rheumatoid arthritis location: multiple sites Rheumatoid factor presence: unspecified presence Qualified Code(s): M06.9 - Rheumatoid arthritis, unspecified - Subjective Interval history: Nausea persists with poor appetite. She denies fevers/ chills - Constitutional Vitals: Temp Pulse Resp BP Pulse Ox 97.8 F 64 16 154/70 94 10/05/17 15:10 10/05/17 15:10 10/05/17 15:10 10/05/17 15:10 10/05/17 15:10 General appearance: Present: A&O X 3, no acute distress Internal Medicine: Result - Labs CBC & Chem 7: 10/05/17 04:28 10/05/17 04:28 Labs: Short CBC 10/05/17 Range/Units 04:28 WBC 1.6 L (4.3-11.1) K/mcL Hgb 10.8 L (11.5-15.4) g/dL Hct 32.8 L (35.3-44.9) % Plt Count 182 (140-400) K/mcL Neutrophils # 0.2 L (1.6-8.9) K/mcL BMP 10/05/17 04:28 Sodium 137 Potassium 3.8 Chloride 108 Carbon Dioxide 22 BUN 8 Creatinine 0.72 Glucose 120 H Calcium 9.2 - Impressions Impressions KUB X-Ray 10/05/17 09:09 IMPRESSION: 3 mm density just superior to the pubic symphysis, which may correlate to bladder stone seen on earlier CT. Otherwise known right renal pelvic and right ureteral stones are not seen on this KUB. D/ / 10/05/2017 10:30:13 Liliam Vega MD / carlo Interpreting Provider: Liliam Vega MD Abdomen/Pelvis CT 10/05/17 10:06 IMPRESSION: 1. Since the prior procedure there is interval decompression of the right hydroureteronephrosis with stable right renal pelvis and proximal ureteral wall thickening and adjacent stranding. Stable nonobstructing right staghorn calculi with the largest individual component measuring approximately 8 mm. Complete interval resolution of the ureteral and bladder calculi seen on the prior exam. 2. There is no acute postprocedure hemorrhage or retroperitoneal fluid collection to suggest a leak. 3. Stable extensive bowel adhesions and redemonstration of extensive abdominal/pelvic wall atrophy with loss of domain and hernias with no acute abdominal wall abnormality. D/ / 10/05/2017 11:45:35 Humberto Flor MD / Delicia Gilmore Interpreting Provider: Humberto Flor MD Consult Discharge Plan - Plan Referrals: Philippe Scott Jr, MD [Primary Care Provider] - (web request sent on 10/04/17)
[2017-10-05] MEDS: Sucralfate 1 GM TABLET PO SCH (23:07)
[2017-10-06] MEDS: metroNIDAZOLE 500 MG TABLET PO SCH ×4 (04:39→22:10)
[2017-10-06 05:14] LABS: Monocytes % 19.7 %
[2017-10-06 05:15] LABS: Basophils % 1.3 %; Eosinophils # 0.3 K/mcL (0.0-0.6); Eosinophils % 16.6 %; Hematocrit 32.9 % (35.3-44.9); Hemoglobin 10.8 g/dL (11.5-15.4); Lymphocytes # 0.8 K/mcL (0.6-4.6); Lymphocytes % 47.8 %; Mean Corpuscular HGB Conc 32.8 g/dL (31.6-35.5); Mean Corpuscular Hemoglobin 30.8 pg (28.0-33.3); Mean Corpuscular Volume 93.7 fL (83.0-100.0); Mean Platelet Volume 10.5 fL (9.4-12.4); Monocytes # 0.3 K/mcL (0.0-1.3); Neutrophils # 0.2 K/mcL (1.6-8.9); Nucleated Red Blood Cells 1.3 /100 WBC (0); Platelet Count 182 K/mcL (140-400); Red Blood Count 3.51 M/mcL (3.82-4.97); Red Cell Distribution Width 12.1 % (11.5-14.5); Segmented Neutrophils % 14.6 %
[2017-10-06 05:22] LABS: BUN/Creatinine Ratio 14 (6-26); Blood Urea Nitrogen 10 mg/dL (7-20); Calcium 9.1 mg/dL (8.6-10.8); Carbon Dioxide 22 mEq/L (19-29); Chloride 107 mEq/L (98-109); Glucose 115 mg/dL (70-99); Magnesium 1.6 mg/dL (1.6-2.6); Osmolality,Calculated 286 (280-300); Sodium 138 mEq/L (136-145); eGFR For African Americans > 60 (> 60); eGFR For Non-African Americans > 60 (> 60)
[2017-10-06 06:07] LABS: Platelet Estimate Normal (Normal)
[2017-10-06] MEDS: Carbidopa/Levodopa 25/100 TABLET PO SCH ×3 (10:00→22:10)
[2017-10-06] MEDS: Sucralfate 1 GM TABLET PO SCH ×4 (10:00→22:10)
[2017-10-06] MEDS: FLUoxetine 20 MG CAPSULE PO SCH (10:00)
[2017-10-06] MEDS: amLODIPine 5 MG TABLET PO SCH (10:00)
[2017-10-06] MEDS: Aspirin 81 MG TAB.CHEW PO SCH (10:00)
[2017-10-06] MEDS: Insulin LISPRO 300 UNITS/3 ML VIAL SQ SCH ×4 (10:01→22:10)
[2017-10-06] MEDS: Vancomycin Oral Soln 250 MG/5 ML UDC PO SCH ×4 (10:01→22:09)
[2017-10-06] MEDS: Ondansetron 4 MG/2 ML VIAL IVP PRN (13:22)
[2017-10-06] MEDS: *HR* Promethazine 25 MG/ML VIAL IVP PRN (15:39)
--- NOTE | 2017-10-06 21:34 | Internal Med Progress Note ---
Date of Encounter: 10/06/17 Time of Encounter: 14:24 - Assessment and plan (1) Intractable nausea and vomiting Current Visit: Yes Status: Acute Assessment and plan: + C diff. Patient denies loose stools currently. Continue oral vanc and flagyl After CT of abdomen/pelvis done, shows less due to nephrolithiasis as patient did clear stones. RUQ ultrasound negative. Continue trial of carafate for gastritis/PUD. Not that patient is already taking a ppi. Qualifiers: Vomiting type: unspecified Qualified Code(s): R11.2 - Nausea with vomiting , unspecified (2) Nephrolithiasis Current Visit: No Status: Acute (3) Chronic neutropenia Current Visit: No Status: Chronic Assessment and plan: Stable. Reviewed previous documentations in EMR chart. This is known condition for her since 2000, she was seen by Heme/Onc within past year. Will place on neutropenic precautions. If acutely changes or she develops signs of infection, will place her on broad spectrum antibiotics. (4) Hypertension Current Visit: No Status: Chronic Assessment and plan: Resume Norvasc. Qualifiers: Hypertension type: essential hypertension Qualified Code(s): I10 - Essential (primary) hypertension (5) Anemia Current Visit: No Status: Chronic Qualifiers: Anemia type: iron deficiency Iron deficiency anemia type: other iron deficiency Qualified Code(s): D50.8 - Other iron deficiency anemias (6) Dementia Current Visit: No Status: Acute Qualifiers: Dementia type: unspecified type Dementia behavioral disturbance: without behavioral disturbance Qualified Code(s): F03.90 - Unspecified dementia without behavioral disturbance (7) Diabetes Current Visit: No Status: Chronic Qualifiers: Diabetes mellitus type: type 2 Diabetes mellitus complication status: with unspecified complications Diabetes mellitus parts counterman insulin use: without residential use Qualified Code(s): E11.8 - Type 2 diabetes mellitus with unspecified complications (8) GERD (gastroesophageal reflux disease) Current Visit: No Status: Chronic Qualifiers: Esophagitis presence: esophagitis presence not specified Qualified Code(s) : K21.9 - Gastro-esophageal reflux disease without esophagitis (9) Rheumatoid arthritis Current Visit: No Status: Acute Qualifiers: Rheumatoid arthritis location: multiple sites Rheumatoid factor presence: unspecified presence Qualified Code(s): M06.9 - Rheumatoid arthritis, unspecified - Subjective Interval history: Nausea persists with poor appetite. She denies fevers/ chills - Constitutional Vitals: Temp Pulse Resp BP Pulse Ox 98.2 F 57 16 146/69 96 10/06/17 12:30 10/06/17 19:58 10/06/17 19:58 10/06/17 19:58 10/06/17 19:58 General appearance: Present: A&O X 3, no acute distress Exam: - Eye Eye exam: Present: PERRL, conjuntiva pink, sclera anicteric Pupils: Present: PERRL - Respiratory Respiratory exam: Present: CTAB. Absent: accessory muscle use, rales, rhonchi, wheezes - Cardiovascular Cardiovascular exam: Present: RRR, +S1, +S2. Absent: diastolic murmur, gallop, rubs, systolic murmur - GI/Abdominal GI/Abdominal exam: Present: normal bowel sounds, soft, no peritoneal signs. Absent: distended, tenderness - Extremities Exam Extremities exam: Present: warm, radial pulses palpable and symmetrical. Absent : calf tenderness, cyanotic, pedal edema - Skin Skin exam: Present: dry, intact Internal Medicine: Result - Labs CBC & Chem 7: 10/06/17 04:39 10/06/17 04:39 Labs: Short CBC 10/06/17 Range/Units 04:39 WBC 1.6 L (4.3-11.1) K/mcL Hgb 10.8 L (11.5-15.4) g/dL Hct 32.9 L (35.3-44.9) % Plt Count 182 (140-400) K/mcL Neutrophils # 0.2 L (1.6-8.9) K/mcL BMP 10/06/17 04:39 Sodium 138 Potassium 4.0 Chloride 107 Carbon Dioxide 22 BUN 10 Creatinine 0.71 Glucose 115 H Calcium 9.1 - Impressions Impressions Liver Ultrasound 10/06/17 07:00 IMPRESSION: 1. Status post cholecystectomy. 2. Right renal calculus. 3. Hypoechoic mass along the tail of the pancreas. See recent CT scan for further detail. D/ / Víctor Hudson MD / Víctor Hudson MD Interpreting Provider: Víctor Hudson MD Consult Discharge Plan - Plan Referrals: Philippe Scott Jr, MD [Primary Care Provider] - (web request sent on 10/04/17)
[2017-10-07 08:18] LABS: Hemoglobin 11.6 g/dL (11.5-15.4); Red Blood Count 3.74 M/mcL (3.82-4.97)
[2017-10-07 08:20] LABS: Basophils % 2.9 %; Eosinophils # 0.3 K/mcL (0.0-0.6); Eosinophils % 22.1 %; Lymphocytes # 0.6 K/mcL (0.6-4.6); Lymphocytes % 42.1 %; Mean Corpuscular HGB Conc 33.1 g/dL (31.6-35.5); Mean Corpuscular Volume 93.6 fL (83.0-100.0); Mean Platelet Volume 10.4 fL (9.4-12.4); Monocytes # 0.3 K/mcL (0.0-1.3); Monocytes % 21.4 %; Neutrophils # 0.2 K/mcL (1.6-8.9); Platelet Count 187 K/mcL (140-400); Red Cell Distribution Width 12.3 % (11.5-14.5); Segmented Neutrophils % 11.5 %
[2017-10-07 08:44] LABS: BUN/Creatinine Ratio 11 (6-26); Blood Urea Nitrogen 8 mg/dL (7-20); Calcium 9.1 mg/dL (8.6-10.8); Carbon Dioxide 23 mEq/L (19-29); Chloride 105 mEq/L (98-109); Glucose 124 mg/dL (70-99); Osmolality,Calculated 280 (280-300); Potassium 4.1 mEq/L (3.5-4.5); Sodium 135 mEq/L (136-145); eGFR For African Americans > 60 (> 60); eGFR For Non-African Americans > 60 (> 60)
[2017-10-07 09:15] LABS: Platelet Estimate Normal (Normal)
[2017-10-07] MEDS: metroNIDAZOLE 500 MG TABLET PO SCH ×3 (09:39→21:37)
[2017-10-07] MEDS: Aspirin 81 MG TAB.CHEW PO SCH (09:39)
[2017-10-07] MEDS: amLODIPine 5 MG TABLET PO SCH (09:39)
[2017-10-07] MEDS: FLUoxetine 20 MG CAPSULE PO SCH (09:39)
[2017-10-07] MEDS: Sucralfate 1 GM TABLET PO SCH ×4 (09:39→21:37)
[2017-10-07] MEDS: Carbidopa/Levodopa 25/100 TABLET PO SCH ×3 (09:41→21:37)
[2017-10-07] MEDS: Vancomycin Oral Soln 250 MG/5 ML UDC PO SCH ×4 (09:42→21:37)
[2017-10-07] MEDS: Insulin LISPRO 300 UNITS/3 ML VIAL SQ SCH ×4 (12:35→22:01)
--- NOTE | 2017-10-07 18:21 | Internal Med Progress Note ---
Date of Encounter: 10/07/17 Time of Encounter: 13:00 - Assessment and plan (1) Intractable nausea and vomiting Current Visit: Yes Status: Acute Assessment and plan: + C diff. Patient denies loose stools currently. Continue oral vanc and flagyl. Not related to nephrolithiasis as patient had stones pass but she was still having nausea. Suspect nausea related to c diff, though she does not have any diarrhea. Plan: - Continue oral vanc and Flagyl - Continue carafate in case ofgastritis/PUD, ppi - Ppi are possibly linked to c difficile infections. If clinical picture not consistent with GERD/PUD, consider discontinuing PPI on discharge. - Discharge tomorrow if she is able to tolerate lunch and dinner. Qualifiers: Vomiting type: unspecified Qualified Code(s): R11.2 - Nausea with vomiting , unspecified (2) Nephrolithiasis Current Visit: No Status: Acute (3) Chronic neutropenia Current Visit: No Status: Chronic Assessment and plan: Stable. Reviewed previous documentations in EMR chart. This is known condition for her since 2000, she was seen by Heme/Onc within past year. Will place on neutropenic precautions. If acutely changes or she develops signs of infection, will place her on broad spectrum antibiotics. (4) Hypertension Current Visit: No Status: Chronic Assessment and plan: Resume Norvasc. Qualifiers: Hypertension type: essential hypertension Qualified Code(s): I10 - Essential (primary) hypertension (5) Anemia Current Visit: No Status: Chronic Qualifiers: Anemia type: iron deficiency Iron deficiency anemia type: other iron deficiency Qualified Code(s): D50.8 - Other iron deficiency anemias (6) Dementia Current Visit: No Status: Acute Qualifiers: Dementia type: unspecified type Dementia behavioral disturbance: without behavioral disturbance Qualified Code(s): F03.90 - Unspecified dementia without behavioral disturbance (7) Diabetes Current Visit: No Status: Chronic Qualifiers: Diabetes mellitus type: type 2 Diabetes mellitus complication status: with unspecified complications 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 insulin 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: without custodial use Qualified Code(s): E11.8 - Type 2 diabetes mellitus with unspecified complications (8) GERD (gastroesophageal reflux disease) Current Visit: No Status: Chronic Qualifiers: Esophagitis presence: esophagitis presence not specified Qualified Code(s) : K21.9 - Gastro-esophageal reflux disease without esophagitis (9) Rheumatoid arthritis Current Visit: No Status: Acute Qualifiers: Rheumatoid arthritis location: multiple sites Rheumatoid factor presence: unspecified presence Qualified Code(s): M06.9 - Rheumatoid arthritis, unspecified - Subjective Interval history: Ate breakfast without issue. Appetite was good. But now she is saying she is not sure if she can handle lunch. Complains of nausea without vomiting. - Constitutional Vitals: Temp Pulse Resp BP Pulse Ox 98.2 F 70 16 169/75 96 10/07/17 07:57 10/07/17 07:57 10/07/17 07:57 10/07/17 07:57 10/07/17 09:48 General appearance: Present: A&O X 3, no acute distress Exam: CVS: RRR Lungs: CTAB Abd: soft, nt/nd Ext: no edema Internal Medicine: Result - Labs CBC & Chem 7: 10/07/17 07:32 10/07/17 07:32 Labs: Short CBC 10/07/17 Range/Units 07:32 WBC 1.4 L (4.3-11.1) K/mcL Hgb 11.6 (11.5-15.4) g/dL Hct 35.0 L (35.3-44.9) % Plt Count 187 (140-400) K/mcL Neutrophils # 0.2 L (1.6-8.9) K/mcL BMP 10/07/17 07:32 Sodium 135 L Potassium 4.1 Chloride 105 Carbon Dioxide 23 BUN 8 Creatinine 0.73 Glucose 124 H Calcium 9.1 Consult Discharge Plan - Plan Referrals: Philippe Scott Jr, MD [Primary Care Provider] - (web request sent on 10/04/17)
[2017-10-08 05:31] LABS: BUN/Creatinine Ratio 13 (6-26); Blood Urea Nitrogen 10 mg/dL (7-20); Calcium 9.4 mg/dL (8.6-10.8); Carbon Dioxide 24 mEq/L (19-29); Chloride 105 mEq/L (98-109); Glucose 138 mg/dL (70-99); Magnesium 1.6 mg/dL (1.6-2.6); Osmolality,Calculated 281 (280-300); Potassium 4.1 mEq/L (3.5-4.5); Sodium 135 mEq/L (136-145); eGFR For African Americans > 60 (> 60); eGFR For Non-African Americans > 60 (> 60)
[2017-10-08 05:33] LABS: Basophils % 1.5 %; Eosinophils # 0.4 K/mcL (0.0-0.6); Eosinophils % 19.1 %; Hematocrit 34.8 % (35.3-44.9); Hemoglobin 11.6 g/dL (11.5-15.4); Lymphocytes # 0.8 K/mcL (0.6-4.6); Lymphocytes % 43.3 %; Mean Corpuscular HGB Conc 33.3 g/dL (31.6-35.5); Mean Platelet Volume 11.1 fL (9.4-12.4); Monocytes # 0.5 K/mcL (0.0-1.3); Monocytes % 24.7 %; Neutrophils # 0.2 K/mcL (1.6-8.9); Platelet Count 207 K/mcL (140-400); Red Blood Count 3.74 M/mcL (3.82-4.97); Red Cell Distribution Width 12.1 % (11.5-14.5); Segmented Neutrophils % 11.4 %
[2017-10-08 05:54] LABS: Platelet Estimate Normal (Normal)
[2017-10-08] MEDS: Ondansetron 4 MG/2 ML VIAL IVP PRN (07:55)
[2017-10-08] MEDS: *HR* Promethazine 25 MG/ML VIAL IVP PRN ×2 (09:37→18:50)
[2017-10-08] MEDS: Insulin LISPRO 300 UNITS/3 ML VIAL SQ SCH ×4 (11:20→21:40)
[2017-10-08] MEDS: Aspirin 81 MG TAB.CHEW PO SCH (11:20)
[2017-10-08] MEDS: amLODIPine 5 MG TABLET PO SCH (11:20)
[2017-10-08] MEDS: metroNIDAZOLE 500 MG TABLET PO SCH ×3 (11:20→21:48)
[2017-10-08] MEDS: FLUoxetine 20 MG CAPSULE PO SCH (11:21)
[2017-10-08] MEDS: Carbidopa/Levodopa 25/100 TABLET PO SCH ×3 (11:21→21:47)
[2017-10-08] MEDS: Vancomycin Oral Soln 250 MG/5 ML UDC PO SCH ×4 (11:21→21:48)
[2017-10-08] MEDS ORDERED: *HR* HYDROcodone/Acet 5/325 mg TABLET PO PRN (12:58)
--- NOTE | 2017-10-09 04:45 | Internal Med Progress Note ---
Date of Encounter: 10/08/17 Time of Encounter: 10:42 - Assessment and plan (1) Intractable nausea and vomiting Current Visit: Yes Status: Acute Assessment and plan: Presented for intractable nausea and vomiting. Initially seemed related to nephrolithiasis as patient had lithotripsy done few days before onset of symptoms. However, when she was brought in for observation, she passed stones as seen on repeat imaging (KUB) one day after admission, and she was still nauseated. She tested positive for C diff without any complaints of diarrhea. Could possibly be c diff enteritis as cause of symptoms. She was intially NPO and she advanced to soft and regular diet without issue. Her appetite is good sometimes and poor at other times in the span of one day. She appears well nourished. Plan: - Continue oral vanc and Flagyl - Continue PPI - Discharge tomorrow if she is able to meals. - GI referral if no improvement. Qualifiers: Vomiting type: unspecified Qualified Code(s): R11.2 - Nausea with vomiting , unspecified (2) C. difficile enteritis Current Visit: Yes Status: Acute Assessment and plan: Would be most likely explanation for patient's symptoms. She has chronic neutropenia and history of c diff infection in the past. Continue oral vancomycin and flagyl. (3) GERD (gastroesophageal reflux disease) Current Visit: No Status: Chronic Assessment and plan: Continue PPI. Qualifiers: Esophagitis presence: esophagitis presence not specified Qualified Code(s) : K21.9 - Gastro-esophageal reflux disease without esophagitis (4) Nephrolithiasis Current Visit: No Status: Acute (5) Chronic neutropenia Current Visit: No Status: Chronic Assessment and plan: Stable. Reviewed previous documentations in EMR chart. This is known condition for her since 2000, she was seen by Heme/Onc within past year. Will place on neutropenic precautions. If acutely changes or she develops signs of infection, will place her on broad spectrum antibiotics. (6) Hypertension Current Visit: No Status: Chronic Assessment and plan: Resume Norvasc. Qualifiers: Hypertension type: essential hypertension Qualified Code(s): I10 - Essential (primary) hypertension (7) Anemia Current Visit: No Status: Chronic Qualifiers: Anemia type: iron deficiency Iron deficiency anemia type: other iron deficiency Qualified Code(s): D50.8 - Other iron deficiency anemias (8) Dementia Current Visit: No Status: Acute Qualifiers: Dementia type: unspecified type Dementia behavioral disturbance: without behavioral disturbance Qualified Code(s): F03.90 - Unspecified dementia without behavioral disturbance (9) Diabetes Current Visit: No Status: Chronic Qualifiers: Diabetes mellitus type: type 2 Diabetes mellitus complication status: with unspecified complications Diabetes mellitus usp insulin use: without usp use Qualified Code(s): E11.8 - Type 2 diabetes mellitus with unspecified complications (10) Rheumatoid arthritis Current Visit: No Status: Acute Qualifiers: Rheumatoid arthritis location: multiple sites Rheumatoid factor presence: unspecified presence Qualified Code(s): M06.9 - Rheumatoid arthritis, unspecified - Subjective Interval history: Patient states that this morning she vomited nb/nb emesis profusely even before having breakfast. However, she was able to eat breakfast today. She is unsure if she will be able to tolerate lunch. She denies fevers/chills, diarrhea/ constipation, hematochezia, melena, heartburn. - Constitutional Vitals: Temp Pulse Resp BP Pulse Ox 98 F 74 15 125/96 92 10/08/17 23:56 10/08/17 23:56 10/08/17 23:56 10/08/17 23:56 10/08/17 23:56 General appearance: Present: A&O X 3, no acute distress Exam: - Eye Eye exam: Present: PERRL, conjuntiva pink, sclera anicteric Pupils: Present: PERRL - Respiratory Respiratory exam: Present: CTAB. Absent: accessory muscle use, rales, rhonchi, wheezes - Cardiovascular Cardiovascular exam: Present: RRR, +S1, +S2. Absent: diastolic murmur, gallop, rubs, systolic murmur - GI/Abdominal GI/Abdominal exam: Present: normal bowel sounds, soft, no peritoneal signs. Absent: distended, tenderness - Extremities Exam Extremities exam: Present: warm, radial pulses palpable and symmetrical. Absent : calf tenderness, cyanotic, pedal edema - Skin Skin exam: Present: dry, intact Internal Medicine: Result - Labs CBC & Chem 7: 10/08/17 04:45 10/08/17 04:45 Labs: Short CBC 10/08/17 Range/Units 04:45 WBC 1.9 L (4.3-11.1) K/mcL Hgb 11.6 (11.5-15.4) g/dL Hct 34.8 L (35.3-44.9) % Plt Count 207 (140-400) K/mcL Neutrophils # 0.2 L (1.6-8.9) K/mcL [facility] 10/08/17 04:45 Sodium 135 L Potassium 4.1 Chloride 105 Carbon Dioxide 24 BUN 10 Creatinine 0.77 Glucose 138 H Calcium 9.4 Consult Discharge Plan - Plan Referrals: Philippe Scott Jr, MD [Primary Care Provider] - (web request sent on 10/04/17)
[2017-10-09 06:09] LABS: Mean Corpuscular Volume 94.1 fL (83.0-100.0)
[2017-10-09 06:10] LABS: Basophils % 1.3 %; Eosinophils # 0.2 K/mcL (0.0-0.6); Eosinophils % 14.6 %; Hematocrit 36.4 % (35.3-44.9); Hemoglobin 11.8 g/dL (11.5-15.4); Lymphocytes # 0.7 K/mcL (0.6-4.6); Mean Corpuscular HGB Conc 32.4 g/dL (31.6-35.5); Mean Corpuscular Hemoglobin 30.5 pg (28.0-33.3); Mean Platelet Volume 11.1 fL (9.4-12.4); Monocytes # 0.4 K/mcL (0.0-1.3); Monocytes % 23.2 %; Neutrophils # 0.2 K/mcL (1.6-8.9); Platelet Count 212 K/mcL (140-400); Red Blood Count 3.87 M/mcL (3.82-4.97); Red Cell Distribution Width 12.2 % (11.5-14.5); Segmented Neutrophils % 15.9 %
[2017-10-09 06:30] LABS: BUN/Creatinine Ratio 12 (6-26); Blood Urea Nitrogen 9 mg/dL (7-20); Calcium 9.6 mg/dL (8.6-10.8); Carbon Dioxide 25 mEq/L (19-29); Chloride 104 mEq/L (98-109); Glucose 137 mg/dL (70-99); Osmolality,Calculated 287 (280-300); Sodium 138 mEq/L (136-145); eGFR For African Americans > 60 (> 60); eGFR For Non-African Americans > 60 (> 60)
[2017-10-09 06:39] LABS: Platelet Estimate Normal (Normal)
[2017-10-09 06:40] LABS: Large Platelets Present (Not Present); Reactive Lymphocytes Present (Not Present)
[2017-10-09] MEDS: Insulin LISPRO 300 UNITS/3 ML VIAL SQ SCH ×4 (09:58→21:51)
[2017-10-09] MEDS: metroNIDAZOLE 500 MG TABLET PO SCH ×3 (10:05→21:37)
[2017-10-09] MEDS: amLODIPine 5 MG TABLET PO SCH (10:05)
[2017-10-09] MEDS: Aspirin 81 MG TAB.CHEW PO SCH (10:05)
[2017-10-09] MEDS: Carbidopa/Levodopa 25/100 TABLET PO SCH ×3 (10:06→21:36)
[2017-10-09] MEDS: Ondansetron 4 MG/2 ML VIAL IVP PRN (10:06)
[2017-10-09] MEDS: Vancomycin Oral Soln 250 MG/5 ML UDC PO SCH ×4 (10:07→21:40)
[2017-10-09] MEDS: FLUoxetine 20 MG CAPSULE PO SCH (10:08)
--- NOTE | 2017-10-09 10:58 | Gastroenterology Consult Note ---
<BarkerCresencio chris Cheikh - Last Filed: 10/09/17 10:54> Date of Encounter: 10/09/17 Time of Encounter: 10:05 - Assessment and plan (1) Intractable nausea and vomiting Status: Acute Assessment and plan: Continue antiemetics and IVFs. Plan for EGD today to r/o esophagitis, gastritis , duodenitis, PUD, MW tear, or AVM. Keep NPO for now. Qualifiers: Vomiting type: unspecified Qualified Code(s): R11.2 - Nausea with vomiting , unspecified (2) C. difficile colitis Status: Acute Assessment and plan: Continue Flagyl and PO Vanco to complete 10 day course of therapy. (3) History of colostomy Status: Chronic Assessment and plan: Yolanda procedure for perforated sigmoid diverticulitis about 5 years ago. (4) Leukopenia Status: Acute Assessment and plan: Per primary team. Qualifiers: Leukopenia type: neutropenia Neutropenia type: unspecified Qualified Code (s): D70.9 - Neutropenia, unspecified - Time Spent With Patient Total time spent is greater than 50% in coordination of care (as documented) at patient's floor/unit and/or counseling patient: GI History of Present Illness - Data of Consult Patient: new to practice Consult date: 10/09/17 Requesting Physician: Osmin Mustafa MD - Consult Narrative Reason for consult: Nausea and vomiting History of present illness: Ms. Hardy is a 77 year old female with PMHx of neutropenia, DM, GERD, HTN, kidney stones, Parkinson's disease, and Yolanda procedure for perforated sigmoid diverticulitis who had lithotripsy the day prior to presentation and came to the hospital for evaluation of intractable nausea and vomiting. She reports 24 hours of multiple episodes of nonbilious, nonbloody vomitus associated with abdominal pain after each attempt to have any food. She passed stones one day after admission, but still remained nauseated. She tested positive for C diff on 10/06 without any complaints of diarrhea. She was started on PO Vanco and Flagyl. She was intially NPO and she advanced to soft and regular diet without issue. Procedures: Colonoscopy 03/22/2016 Dr. Nolen: Diverticulosis, 2 hyperplastic polyps NSAIDs: ASA Anticoagulation: None Past Med Surg Social Fam HX - Past Medical History Medical history: arthritis, diabetes, GERD, hypertension, kidney stones, osteoporosis, RA, thyroid disease, valvular heart disease, other Psychiatric history: anxiety, depression - Past Surgical History Surgical History: cataract, cholecystectomy, colectomy, colostomy, herniorrhaphy , knee replacement, ureteral stent - Social History Smoking Status: Never smoker Smokeless Tobacco Status: No Alcohol use: none Drug use: none - Family History Son Adopted: No Living Status: Still Living Hx Family Cardiac Disorders: No Hx Family Respiratory Disorders: Yes Hx Family Cancer: No Hx Family GI Disorders: No Hx Family Endocrine Disorder: No Hx Family Neuromuscular Disorders: No Hx Family Neurologic Disorders: No Hx Family HEENT Disorders: No Hx Family Autoimmune Disorders: Yes (Autoimmune dx, unable to remember name) Father Living Status: Hx Family Cardiac Disorders: Yes (VT, HD, HTN) Mother Living Status: Cause of : HD Hx Family Cardiac Disorders: Yes (HD) Brother Living Status: Age at : 49 Cause of : VT Hx Family Cardiac Disorders: Yes (VT, HD) - Gastrointestinal Gastrointestinal: Present: as per HPI - Constitutional Constitutional: as per HPI - EENT Eyes: as per HPI Ears: Present: as per HPI Nose, mouth and throat: Present: as per HPI - Cardiovascular Cardiovascular ROS: Present: as per HPI - Respiratory Respiratory IM: Present: as per HPI - Genitourinary Genitourinary: Absent: change in color, Urinary frequency - Neurological ROS Neurological GI: Present: as per HPI - Hematologic/Lymphatic Hematologic/Lymphatic pediatric: Present: as per HPI - Musculoskeletal Musculoskeletal ROS GI: Present: as per HPI - Integumentary Integumentary GI: Present: as per HPI - Psychiatric ROS Psychiatric GI: Present: as per HPI - Endocrine Endocrine IM: Present: as per HPI - Constitutional Vitals: Temp Pulse Resp BP Pulse Ox 98.1 F 64 16 151/87 95 10/09/17 10:52 10/09/17 10:52 10/09/17 10:52 10/09/17 10:52 10/09/17 10:52 General appearance: Present: cooperative, A&O X 3, no acute distress, answers questions appropriately - Head Head exam: Present: atraumatic, normocephalic - Eye Eye exam: Present: normal appearance, sclera anicteric - ENT ENT exam: Present: mucous membranes dry - Neck Neck exam general surgery: Present: normal inspection, trachea midline - Respiratory Respiratory exam: Present: CTAB. Absent: rales, rhonchi - Cardiovascular Cardiovascular exam: Present: RRR, +S1, +S2 - GI/Abdominal GI/Abdominal exam: Present: soft, no peritoneal signs. Absent: distended, firm , guarding, tenderness Additional comments: LLQ ostomy - Rectal Rectal exam: Present: deferred - Extremities Exam Extremities exam: Present: warm - Neurological Exam Neurological exam: Present: no focal deficits - Psychiatric Psychiatric exam: Present: normal affect, normal mood - Skin Skin exam: Present: dry, intact, normal color, warm Results - Labs CBC & Chem 7: 10/09/17 04:36 10/09/17 04:36 Labs: Last Result Calcium 9.6 mg/dL (8.6-10.8) 10/09/17 04:36 Troponin I 0.01 ng/mL (0-0.03) 10/03/17 16:06 Entire Visit Hgb 11.8 g/dL (11.5-15.4) 10/09/17 04:36 Hct 36.4 % (35.3-44.9) 10/09/17 04:36 Total Bilirubin 0.4 mg/dL (0.2-1.2) 10/03/17 16:06 AST 8 Units/L (5-34) 10/03/17 16:06 ALT < 6 Units/L (0-55) 10/03/17 16:06 Lipase 11 Units/L (8-78) 10/03/17 16:06 Consult Discharge Plan - Plan Referrals: Philippe Scott Jr, MD [Primary Care Provider] - (web request sent on 10/04/17) Prescriptions: HYDROcodone/Acet 5/325 mg [[place] 5-325 mg] 1 tab PO Q4H PRN 10 Days #60 tab PRN Reason: Pain metroNIDAZOLE [Flagyl] 500 mg PO TID #6 tablet Vancomycin Oral Soln [Vancocin] 125 mg PO QID 2 Days #1 bottle <Javier Campo - Last Filed: 10/17/17 09:24> Date of Encounter: 10/09/17 - Time Spent With Patient Total time spent is greater than 50% in coordination of care (as documented) at patient's floor/unit and/or counseling patient: GI History of Present Illness - Data of Consult Requesting Physician: Osmin Mustafa MD - Consult Narrative History of present illness: Ms. Hardy is a 77 year old female - Constitutional Vitals: Temp Pulse Resp BP Pulse Ox 98.3 F 63 17 142/69 96 10/11/17 11:11 10/11/17 11:11 10/11/17 11:11 10/11/17 11:11 10/11/17 11:11 Results - Labs CBC & Chem 7: 10/11/17 06:13 10/11/17 06:13 Labs: Last Result Calcium 9.2 mg/dL (8.6-10.8) 10/11/17 06:13 Troponin I 0.01 ng/mL (0-0.03) 10/03/17 16:06 Entire Visit Hgb 11.2 g/dL (11.5-15.4) L 10/11/17 06:13 Hct 34.4 % (35.3-44.9) L 10/11/17 06:13 Total Bilirubin 0.4 mg/dL (0.2-1.2) 10/03/17 16:06 AST 8 Units/L (5-34) 10/03/17 16:06 ALT < 6 Units/L (0-55) 10/03/17 16:06 Lipase 11 Units/L (8-78) 10/03/17 16:06 - Attending Attestation I have personally performed a face to face evaluation on this patient. I have reviewed and agree with the care plan. History and Exam by me shows:
--- NOTE | 2017-10-09 14:11 | Anesthesia Evaluation PreOp ---
Date of Encounter: 10/09/17 Time of Encounter: 14:09 - Past History Planned Operation: EGD Cardiac History: HTN, Other (valvular heart ds) Pulmonary History: Former smoker (quit 30yrs ago) ANIMAL CARE ASSISTANT History: Other (parkinsons ds) Other Medical History: Renal (kidney stones), Diabetes Type II, Thyroid (hypo), GERD Anesthesia History: No Prior Anesthetic Complications, Past Anesthesia (cataract , miguel, colectomy, hernia, TKA, EUS 10-02-17) Alcohol Use: none Drug use: none Medications and Allergies Carbidopa/Levodopa 25/100 [Sinemet 25/100] 1 each PO TID 07/20/17 [History] Amlodipine Besylate 10 mg PO DAILY 10/02/17 [History] Aspirin 81 mg PO DAILY 10/02/17 [History] FLUoxetine HCl [Fluoxetine HCl] 40 mg PO DAILY 10/02/17 [History] Glimepiride [Amaryl] 4 mg PO DAILY 10/02/17 [History] HYDROcodone/Acet 5/325 mg [[place] 5-325 mg] 1 tab PO Q4H PRN #10 tab 10/02/17 [Rx ] Metformin HCl [Glucophage] 1,000 mg PO BID 10/02/17 [History] Metoclopramide HCl 5 mg PO QID PRN 10/02/17 [History] Metoprolol [Lopressor] 25 mg PO BID 10/02/17 [History] Omeprazole [PriLOSEC] 20 mg PO DAILY 10/02/17 [History] Potassium Chloride [K-Tab ER] 20 meq PO DAILY 10/02/17 [History] Sulfamethoxazole/Trimeth DS [Bactrim DS] 1 each PO DAILY #5 tablet 10/02/17 [Rx] hydrALAZINE [HydrALAZINE] 10 mg IVP Q10MIN PRN vial 10/02/17 [Rx] 3 Allergy/AdvReac Type Severity Reaction Status Date / Time RODGER Inhibitors AdvReac See Verified 10/02/17 07:14 Comments ampicillin AdvReac See Verified 10/02/17 07:14 Comments lisinopril AdvReac See Verified 10/02/17 07:14 Comments Tetracycline AdvReac See Verified 10/02/17 07:14 Comments - Meds/Allergy Pre-op Review Medications Reviewed: Yes Allergies Reviewed: Yes Beta Blockers on Current Med List: Yes If Beta Blockers taken, Date/Time (Last Dose taken): today 1000hrs Anesthesia Results - Labs 10/09/17 04:36 10/09/17 04:36 - Imaging EKG: report reviewed (SINUS TACHYCARDIA PATTERN CONSISTENT WITH PULMONARY DISEASE INCOMPLETE RIGHT BUNDLE BRANCH BLOCK [90+ ms QRS DURATION, TERMINAL R IN V1/V2, 40+ ms S IN I/aVL/V4/V5/V6] LEFT ANTERIOR FASCICULAR BLOCK [QRS AXIS <= -45, QR IN I, RS IN II] LEFT VENTRICULAR HYPERTROPHY AND ST-T CHANGE [ VOLTAGE CRITERIA PLUS ST/T) Anesthesia Exam Selected Entries 10/09/17 10:52 Temperature 98.1 F Pulse Rate 64 Respiratory Rate 16 Blood Pressure 151/87 O2 Sat by Pulse Oximetry 95 Weight: 61kg NPO (# of Hours): 8 - HEENT Pupil (Motor): EOMI Mallampati: III Teeth: Poor dentition Oral Opening: Greater than 3 - ANIMAL CARE ASSISTANT LOC: Oriented ANIMAL CARE ASSISTANT Motor: Normal RUE, Normal LUE, Normal RLE, Normal LLE, Normal Face ANIMAL CARE ASSISTANT Sensory: Normal: RUE, LUE, RLE, LLE, Face - Cardiac Rhythm: Regular Murmur: None - Pulmonary Breath Sounds: bilateral Clear Respiratory Effort: Symmetrical Anesthesia Assess/Plan ASA Score: 3 Modified [place] Scale for Level of Consciousness: Cooperative, oriented, and tranquil Anesthetic Plan: MAC Monitoring Plan: Standard Monitors Recovery Plan: Other (agrees to MAC)
[2017-10-09] MEDS ORDERED: *HR* Propofol 200 MG/20 ML VIAL IVP ONE (14:27)
--- NOTE | 2017-10-09 16:22 | Internal Med Progress Note ---
<Apolinar Billy - Last Filed: 10/09/17 16:44> Date of Encounter: 10/09/17 Time of Encounter: 09:55 - Assessment and plan (1) Intractable nausea and vomiting Current Visit: Yes Status: Acute Assessment and plan: Presented for intractable N/V. Initially seemed related to nephrolithiasis as patient had lithotripsy done few days before onset of symptoms. However, when she was brought in for observation, she passed stones as seen on repeat imaging (KUB) one day after admission, and she was still nauseated. She tested positive for C diff on 10/06/17 without any complaints of diarrhea. Patient's nausea and vomiting could possibly be related to C diff. Enteritis. Varying levels of appetite. Appears well-nourished. Plan: -Omeprazole 20 mg PO daily -Phenergan 12.5 mg IV Q6 PRN -Zofran 4 mg IV Q6 PRN Qualifiers: Vomiting type: unspecified Qualified Code(s): R11.2 - Nausea with vomiting , unspecified (2) C. difficile colitis Current Visit: No Status: Acute Assessment and plan: Tested positive for C Diff on 10/06/17. Plan: Complete 10 day course of antibiotic therapy. Antibiotics started 10/06/17; day 4 -Vancomycin 125 mg PO QID -Flagyl 500 mg PO TID (3) Chronic gastritis Current Visit: Yes Status: Acute Assessment and plan: Endoscopy performed on 10/09/17 -Revealed moderate sized Schatzki ring at the GE junction. Was dilated. -Mild inflammation was found throughout the entire examined stomach; chronic gastritis. Biopsies were taken. Qualifiers: Qualified Code(s): K29.50 - Unspecified chronic gastritis without bleeding (4) History of colostomy Current Visit: No Status: Chronic Assessment and plan: Yolanda procedure for perforated sigmoid diverticulitis approximately 5 years ago (5) HTN (hypertension) Current Visit: No Status: Chronic Assessment and plan: Patient had an elevated blood pressure this morning at 182/80. -Metoprolol increased from 25 mg to 50 mg PO BID Qualifiers: Hypertension type: essential hypertension Qualified Code(s): I10 - Essential (primary) hypertension (6) Leukopenia Current Visit: No Status: Acute Assessment and plan: Patient's white count this morning was 1.5. -Known condition since 2000; has been seen by Heme/Onc in the last year. -Patient placed on neutropenic precautions. Qualifiers: Leukopenia type: neutropenia Neutropenia type: unspecified Qualified Code (s): D70.9 - Neutropenia, unspecified - Subjective Interval history: Patient is a 77-year-old female who presents to the hospital for evaluation of intractable nausea and vomiting. Reported 24 hours of multiple episodes of nonbilious, nonbloody vomit associated with abdominal pain after each attempt to be food. Patient passed several kidney stones one day after admission, but her nausea still persisted. On 10/06/17, patient was positive for C. difficile. She had no compressive diarrhea at this time. She no abdominal pain. Patient was started on by mouth vancomycin 125 mg 4 times per day. Day 4 of antibiotic. Patient was seen and examined at bedside this morning. She reported that she had some nausea this morning. Denied having any episodes of vomiting. Denies having any abdominal pain. She has no complaints this time. Patient received upper endoscopy earlier today. Revealed the presence of chronic gastritis and a schatzki ring at the GE junction. - Constitutional Vitals: Temp Pulse Resp BP Pulse Ox 98.1 F 61 16 148/80 94 10/09/17 16:05 10/09/17 16:05 10/09/17 16:05 10/09/17 16:05 10/09/17 16:05 General appearance: Present: A&O X 3, no acute distress - Head Head exam: Present: atraumatic, normocephalic - Eye Eye exam: Present: PERRL, conjuntiva pink, sclera anicteric Pupils: Present: PERRL - Neck Neck exam general surgery: Present: supple, trachea midline. Absent: lymphadenopathy - Respiratory Respiratory exam: Present: CTAB. Absent: accessory muscle use, rales, rhonchi, wheezes - Cardiovascular Cardiovascular exam: Present: RRR, +S1, +S2. Absent: diastolic murmur, gallop, rubs, systolic murmur - GI/Abdominal GI/Abdominal exam: Present: soft, no peritoneal signs. Absent: distended, tenderness - Extremities Exam Extremities exam: Present: warm, radial pulses palpable and symmetrical - Skin Skin exam: Present: dry, intact Internal Medicine: Result - Labs CBC & Chem 7: 10/09/17 04:36 10/09/17 04:36 Labs: Short CBC 10/09/17 Range/Units 04:36 WBC 1.5 L (4.3-11.1) K/mcL Hgb 11.8 (11.5-15.4) g/dL Hct 36.4 (35.3-44.9) % Plt Count 212 (140-400) K/mcL Neutrophils # 0.2 L (1.6-8.9) K/mcL [facility] 10/09/17 04:36 Sodium 138 Potassium 4.0 Chloride 104 Carbon Dioxide 25 BUN 9 Creatinine 0.76 Glucose 137 H Calcium 9.6 Consult Discharge Plan - Plan Referrals: Philippe Scott Jr, MD [Primary Care Provider] - (web request sent on 10/04/17) <Osmin Mustafa T - Last Filed: 10/09/17 17:20> Date of Encounter: 10/09/17 - Constitutional Vitals: Temp Pulse Resp BP Pulse Ox 98.1 F 61 16 148/80 94 10/09/17 16:05 10/09/17 16:05 10/09/17 16:05 10/09/17 16:05 10/09/17 16:05 Internal Medicine: Result - Labs CBC & Chem 7: 10/09/17 04:36 10/09/17 04:36 Labs: Short CBC 10/09/17 Range/Units 04:36 WBC 1.5 L (4.3-11.1) K/mcL Hgb 11.8 (11.5-15.4) g/dL Hct 36.4 (35.3-44.9) % Plt Count 212 (140-400) K/mcL Neutrophils # 0.2 L (1.6-8.9) K/mcL [facility] 10/09/17 04:36 Sodium 138 Potassium 4.0 Chloride 104 Carbon Dioxide 25 BUN 9 Creatinine 0.76 Glucose 137 H Calcium 9.6 - Attending Attestation I have independently seen and examined this patient on and discused plan of care with resident physician, patient and her spouse at the bedside She is still complaining of nausea, states no vomiting in the past 24 hrs She is being managed for gastritis, C.diff enteritis, Awaiting GI eval and EGD at time of review Physical exam is unremarkable Labs reviewed-unremarkable Continue current care and follow EGD reports. continue current management and antibiotics Rest of details as in resident physician's documentation
[2017-10-10 06:30] LABS: BUN/Creatinine Ratio 11 (6-26); Blood Urea Nitrogen 8 mg/dL (7-20); Calcium 9.2 mg/dL (8.6-10.8); Carbon Dioxide 26 mEq/L (19-29); Chloride 102 mEq/L (98-109); Glucose 132 mg/dL (70-99); Osmolality,Calculated 280 (280-300); Potassium 3.8 mEq/L (3.5-4.5); Sodium 135 mEq/L (136-145); eGFR For African Americans > 60 (> 60); eGFR For Non-African Americans > 60 (> 60)
[2017-10-10 07:36] LABS: Basophils % 1.4 %; Eosinophils # 0.3 K/mcL (0.0-0.6); Eosinophils % 20.6 %; Hematocrit 33.4 % (35.3-44.9); Lymphocytes # 0.6 K/mcL (0.6-4.6); Lymphocytes % 40.4 %; Mean Corpuscular HGB Conc 32.9 g/dL (31.6-35.5); Mean Corpuscular Hemoglobin 31.3 pg (28.0-33.3); Mean Corpuscular Volume 94.9 fL (83.0-100.0); Mean Platelet Volume 10.7 fL (9.4-12.4); Monocytes # 0.3 K/mcL (0.0-1.3); Monocytes % 23.4 %; Neutrophils # 0.2 K/mcL (1.6-8.9); Platelet Count 204 K/mcL (140-400); Red Blood Count 3.52 M/mcL (3.82-4.97); Red Cell Distribution Width 12.3 % (11.5-14.5); Segmented Neutrophils % 14.2 %
[2017-10-10] MEDS: Insulin LISPRO 300 UNITS/3 ML VIAL SQ SCH ×3 (08:08→17:33)
[2017-10-10] MEDS: Ondansetron 4 MG/2 ML VIAL IVP PRN (08:13)
[2017-10-10 08:50] LABS: Platelet Estimate Normal (Normal)
[2017-10-10] MEDS: amLODIPine 5 MG TABLET PO SCH (10:42)
[2017-10-10] MEDS: metroNIDAZOLE 500 MG TABLET PO SCH ×3 (10:42→21:14)
[2017-10-10] MEDS: Aspirin 81 MG TAB.CHEW PO SCH (10:42)
[2017-10-10] MEDS: FLUoxetine 20 MG CAPSULE PO SCH (10:42)
[2017-10-10] MEDS: Vancomycin Oral Soln 250 MG/5 ML UDC PO SCH ×4 (10:43→21:15)
[2017-10-10] MEDS: *HR* Promethazine 25 MG/ML VIAL IVP PRN (10:43)
[2017-10-10] MEDS: Carbidopa/Levodopa 25/100 TABLET PO SCH ×3 (10:43→21:14)
--- NOTE | 2017-10-10 15:31 | Internal Med Progress Note ---
<Apolinar Billy - Last Filed: 10/10/17 16:20> Date of Encounter: 10/10/17 Time of Encounter: 10:15 - Assessment and plan (1) Intractable nausea and vomiting Current Visit: Yes Status: Acute Assessment and plan: Presented for intractable N/V. Initially seemed related to nephrolithiasis as patient had lithotripsy done few days before onset of symptoms. However, when she was brought in for observation, she passed stones as seen on repeat imaging (KUB) one day after admission, and she was still nauseated. She tested positive for C diff on 10/06/17 without any complaints of diarrhea. Patient's nausea and vomiting could possibly be related to C diff. Enteritis. Varying levels of appetite. Appears well-nourished. Plan: -Omeprazole 20 mg PO daily -Phenergan 12.5 mg IV Q6 PRN -Zofran 4 mg IV Q6 PRN -Advance diet to cardiac diet. Qualifiers: Vomiting type: unspecified Qualified Code(s): R11.2 - Nausea with vomiting , unspecified (2) C. difficile colitis Current Visit: No Status: Acute Assessment and plan: Tested positive for C Diff on 10/06/17. Plan: Complete 10 day course of antibiotic therapy. Antibiotics started 10/06/17; day 5 -Vancomycin 125 mg PO QID -Flagyl 500 mg PO TID (3) Chronic gastritis Current Visit: Yes Status: Acute Assessment and plan: Endoscopy performed on 10/09/17 -Revealed moderate sized Schatzki ring at the GE junction. Was dilated. -Mild inflammation was found throughout the entire examined stomach; chronic gastritis. Biopsies were taken. Qualifiers: Qualified Code(s): K29.50 - Unspecified chronic gastritis without bleeding (4) History of colostomy Current Visit: No Status: Chronic Assessment and plan: Yolanda procedure for perforated sigmoid diverticulitis approximately 5 years ago (5) HTN (hypertension) Current Visit: No Status: Chronic Assessment and plan: Patient had an elevated blood pressure this morning at 167/81. -Metoprolol increased from 25 mg to 50 mg PO BID Qualifiers: Hypertension type: essential hypertension Qualified Code(s): I10 - Essential (primary) hypertension (6) Leukopenia Current Visit: No Status: Acute Assessment and plan: Patient's white count this morning was 1.4. -Known condition since 2000; has been seen by Heme/Onc in the last year. -Patient placed on neutropenic precautions. Qualifiers: Leukopenia type: neutropenia Neutropenia type: unspecified Qualified Code (s): D70.9 - Neutropenia, unspecified - Subjective Interval history: Patient was seen and examined up with her this morning. Patient states that there were no claudications after her upper endoscopy. She denies having abdominal pain. She still however complains of nausea. She states that her nausea has remained relatively unchanged over the course of her entire visit. She states that she would like to have her diet advanced. Denies having any episodes of vomiting. - Constitutional Vitals: Temp Pulse Resp BP Pulse Ox 98.4 F 64 17 156/75 96 10/10/17 11:50 10/10/17 11:50 10/10/17 11:50 10/10/17 11:50 10/10/17 11:50 General appearance: Present: A&O X 3, no acute distress - Head Head exam: Present: atraumatic, normocephalic - Eye Eye exam: Present: PERRL, conjuntiva pink, sclera anicteric Pupils: Present: PERRL - Neck Neck exam general surgery: Present: supple, trachea midline. Absent: lymphadenopathy - Respiratory Respiratory exam: Present: CTAB. Absent: accessory muscle use, rales, rhonchi, wheezes - Cardiovascular Cardiovascular exam: Present: RRR, +S1, +S2. Absent: diastolic murmur, gallop, rubs, systolic murmur - GI/Abdominal GI/Abdominal exam: Present: normal bowel sounds, soft, no peritoneal signs. Absent: distended, tenderness - Skin Skin exam: Present: dry, intact Internal Medicine: Result - Labs CBC & Chem 7: 10/10/17 05:45 10/10/17 05:45 Labs: Short CBC 10/10/17 Range/Units 05:45 WBC 1.4 L (4.3-11.1) K/mcL Hgb 11.0 L (11.5-15.4) g/dL Hct 33.4 L (35.3-44.9) % Plt Count 204 (140-400) K/mcL Neutrophils # 0.2 L (1.6-8.9) K/mcL BMP 10/10/17 05:45 Sodium 135 L Potassium 3.8 Chloride 102 Carbon Dioxide 26 BUN 8 Creatinine 0.73 Glucose 132 H Calcium 9.2 Consult Discharge Plan - Plan Referrals: Philippe Scott Jr, MD [Primary Care Provider] - (web request sent on 10/04/17) <Osmin Mustafa - Last Filed: 10/10/17 16:56> Date of Encounter: 10/10/17 - Constitutional Vitals: Temp Pulse Resp BP Pulse Ox 98.3 F 61 22 138/63 95 10/10/17 16:35 10/10/17 16:35 10/10/17 16:35 10/10/17 16:35 10/10/17 16:35 Internal Medicine: Result - Labs CBC & Chem 7: 10/10/17 05:45 10/10/17 05:45 Labs: Short CBC 10/10/17 Range/Units 05:45 WBC 1.4 L (4.3-11.1) K/mcL Hgb 11.0 L (11.5-15.4) g/dL Hct 33.4 L (35.3-44.9) % Plt Count 204 (140-400) K/mcL Neutrophils # 0.2 L (1.6-8.9) K/mcL BMP 10/10/17 05:45 Sodium 135 L Potassium 3.8 Chloride 102 Carbon Dioxide 26 BUN 8 Creatinine 0.73 Glucose 132 H Calcium 9.2 - Attending Attestation I have independently seen and examined this patient on 10/10/17 and discussed plan of care with resident physician, patient and her spouse at the bedside She is still complaining of nausea, states no vomiting in the past 24 hrs, tolerated her dinner after the EGD. Nausea is worse when she sits upright, she phu CP, SOB or dizziness She is being managed for gastritis, C.diff enteritis, Physical exam is unremarkable. Colostomy bag with well formed stool, she has no diarrhea. VSS. Labs reviewed-chronic leukopenia, hypomagnessemia, EGD noted for Schaztki ring that was dilated, evidence of chronic gastritis that was biopsied Continue current care, check orthostasts, patient is very deconditioned. The cause of her nausea at this time is not clear, advance diet and monitor. Replace Mag Rest of details as in resident physician's documentation
[2017-10-11] MEDS: Insulin LISPRO 300 UNITS/3 ML VIAL SQ SCH ×4 (01:24→17:19)
[2017-10-11] MEDS: *HR* Promethazine 25 MG/ML VIAL IVP PRN (01:25)
[2017-10-11 06:30] LABS: Basophils % 0.8 %; Eosinophils # 0.2 K/mcL (0.0-0.6); Eosinophils % 17.2 %; Hematocrit 34.4 % (35.3-44.9); Hemoglobin 11.2 g/dL (11.5-15.4); Lymphocytes # 0.4 K/mcL (0.6-4.6); Lymphocytes % 33.6 %; Mean Corpuscular HGB Conc 32.6 g/dL (31.6-35.5); Mean Corpuscular Hemoglobin 30.2 pg (28.0-33.3); Mean Corpuscular Volume 92.7 fL (83.0-100.0); Mean Platelet Volume 10.4 fL (9.4-12.4); Monocytes # 0.3 K/mcL (0.0-1.3); Monocytes % 24.2 %; Neutrophils # 0.3 K/mcL (1.6-8.9); Platelet Count 217 K/mcL (140-400); Red Blood Count 3.71 M/mcL (3.82-4.97); Segmented Neutrophils % 24.2 %
[2017-10-11 06:46] LABS: BUN/Creatinine Ratio 11 (6-26); Blood Urea Nitrogen 8 mg/dL (7-20); Calcium 9.2 mg/dL (8.6-10.8); Carbon Dioxide 26 mEq/L (19-29); Chloride 102 mEq/L (98-109); Glucose 149 mg/dL (70-99); Osmolality,Calculated 283 (280-300); Potassium 3.8 mEq/L (3.5-4.5); Sodium 136 mEq/L (136-145); eGFR For African Americans > 60 (> 60); eGFR For Non-African Americans > 60 (> 60)
[2017-10-11 06:48] LABS: Platelet Estimate Normal (Normal)
[2017-10-11] MEDS: Ondansetron 4 MG/2 ML VIAL IVP PRN ×2 (09:03→15:43)
[2017-10-11] MEDS: Aspirin 81 MG TAB.CHEW PO SCH (09:05)
[2017-10-11] MEDS: FLUoxetine 20 MG CAPSULE PO SCH (09:05)
[2017-10-11] MEDS: Carbidopa/Levodopa 25/100 TABLET PO SCH ×2 (09:05→17:18)
[2017-10-11] MEDS: metroNIDAZOLE 500 MG TABLET PO SCH ×2 (09:06→17:18)
[2017-10-11] MEDS: amLODIPine 5 MG TABLET PO SCH (09:06)
--- NOTE | 2017-10-11 10:42 | Discharge Summary ---
<Apolinar Billy - Last Filed: 10/11/17 15:43> Date of Encounter: 10/11/17 Time of Encounter: 10:00 - Discharge Diagnosis (1) Intractable nausea and vomiting Priority: Primary Status: Resolved Qualifiers: Vomiting type: unspecified Qualified Code(s): R11.2 - Nausea with vomiting , unspecified (2) C. difficile colitis Priority: Secondary Status: Acute (3) Chronic gastritis Priority: Secondary Status: Acute Qualifiers: Qualified Code(s): K29.50 - Unspecified chronic gastritis without bleeding (4) History of colostomy Priority: Secondary Status: Chronic (5) HTN (hypertension) Priority: Secondary Status: Chronic Qualifiers: Hypertension type: essential hypertension Qualified Code(s): I10 - Essential (primary) hypertension (6) Leukopenia Priority: Secondary Status: Acute Qualifiers: Leukopenia type: neutropenia Neutropenia type: unspecified Qualified Code (s): D70.9 - Neutropenia, unspecified - Discharge Medications Prescriptions: HYDROcodone/Acet 5/325 mg [Bluford 5-325 mg] 1 tab PO Q4H PRN 10 Days #60 tab PRN Reason: Pain metroNIDAZOLE [Flagyl] 500 mg PO TID #6 tablet Vancomycin Oral Soln [Vancocin] 125 mg PO QID 2 Days #1 bottle Home Medications: Carbidopa/Levodopa 25/100 [Sinemet 25/100] 1 each PO TID 07/20/17 [History] Amlodipine Besylate 10 mg PO DAILY 10/02/17 [History] Aspirin 81 mg PO DAILY 10/02/17 [History] FLUoxetine HCl [Fluoxetine HCl] 40 mg PO DAILY 10/02/17 [History] Glimepiride [Amaryl] 4 mg PO DAILY 10/02/17 [History] HYDROcodone/Acet 5/325 mg [Bluford 5-325 mg] 1 tab PO Q4H PRN #10 tab 10/02/17 [Rx ] Metformin HCl [Glucophage] 1,000 mg PO BID 10/02/17 [History] Metoclopramide HCl 5 mg PO QID PRN 10/02/17 [History] Metoprolol [Lopressor] 25 mg PO BID 10/02/17 [History] Omeprazole [PriLOSEC] 20 mg PO DAILY 10/02/17 [History] Potassium Chloride [K-Tab ER] 20 meq PO DAILY 10/02/17 [History] HYDROcodone/Acet 5/325 mg [Bluford 5-325 mg] 1 tab PO Q4H PRN 10 Days #60 tab [Rx] Vancomycin Oral Soln [Vancocin] 125 mg PO QID 2 Days #1 bottle 10/11/17 [Rx] metroNIDAZOLE [Flagyl] 500 mg PO TID #6 tablet 10/11/17 [Rx] Allergies/Adverse Reactions: 3 Allergy/AdvReac Type Severity Reaction Status Date / Time RODGER Inhibitors AdvReac See Verified 10/02/17 07:14 Comments ampicillin AdvReac See Verified 10/02/17 07:14 Comments lisinopril AdvReac See Verified 10/02/17 07:14 Comments Tetracycline AdvReac See Verified 10/02/17 07:14 Comments Date of admission: 10/05/17 17:29 Primary care physician: Philippe Scott Jr, MD Consults: 10/07/17 12:32 Consult to Physical Therapy [CONS] Routine Comment: Evaluate, develop and implement POC Reason for Consult: Disposition planning. Therapy - weakness in bed. 10/07/17 12:33 OT [Consult to Occupational Therapy] [CONS] Routine Comment: Evaluate, develop and implement POC Reason for Consult: dispo planning 10/11/17 08:19 Consult to Four Slide Operator [CONS] Routine Reason for SW Consult: wants ecf Discharging clinician: Apolinar Billy Anticipated date of discharge: 10/11/17 - Patient Status Disposition: Home, Self-Care Condition: Fair Overall status at discharge: patient is progressing back to baseline - Discharge Instructions Follow Up With: Philippe Scott Jr, MD [Primary Care Provider] - (web request sent on 10/04/17) - Diet and Activity Activity: increase activity as tolerated Diet: advance to your usual diet Hospital course: Ms. Hardy is a 77 year old female who presented to the hospital on 10/03/17 with intractable nausea and vomiting accompanied by generalized abdominal pain. She presented after a lithotripsy on 10/02/17. Patient reported that these episodes of nausea and vomiting occurred after the consumption of any food. The vomiting that she experienced was nonbloody and nonbilious. She also had rhinorrhea, cough, and sneezing. In the emergency department, patient was found to be dehydrated. She was given IV fluids. CT scan on 10/03/17 demonstrated moderate right-sided hydronephrosis, multiple proximal and distal ureter stones, and several stones were visualized in the bladder. Patient was started on omeprazole, Phenergan, Zofran for her nausea. Patient has chronic leukopenia. This is a known condition for this patient since 2000. She is seen by hematology/oncology in the last year. Her hematology, patient's condition is possibly related to an autoimmune condition or secondary to patient's home medication. Patient was placed on neutropenic precautions while in hospital. Nephrology was consulted. Per nephrology, her condition was likely due to residual kidney stones. A KUB was ordered and performed on 10/05/17. It demonstrated possible bladder stones seen on the earlier CT scan. Ureter stones were not seen. CT scan on 10/05/17 demonstrated interval decompression of right hydronephrosis. It also demonstrated stable nonobstructing right staghorn calculi. Ureter stones were essentially ruled out as the cause of the patient's nausea and vomiting. RUQ Ultrasound was performed to rule out hepatobiliary process on 10/06/17. 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 On 10/06/17, patient tested positive for C. difficile. She was started on vancomycin and Flagyl. At this time, suspicion was that her nausea and vomiting was related to see differential enteritis. Patient did not have diarrhea at any time. GI was consulted. On 10/09/17, upper endoscopy was performed. It revealed the following: Moderate sized Schatzki's ring at the gastroesophageal junction. This ring was dilated. It also demonstrated mild inflammation throughout the entire examined stomach; possibly chronic gastritis. Several biopsies were taken, specimen is still pending. Patient was advanced to a cardiac diet, and tolerated it well. She did not experience any episodes of vomiting. She was seen and examined at bedside this morning. Patient reports that she is feeling well this morning, with no nausea , vomiting, or abdominal pain. She is in no acute distress. Patient's vancomycin and Flagyl were started on 10/06/17. On date of discharge, patient is day 6 of antibiotic treatment. Patient is to complete a full 10 day course of antibiotic treatment for C. difficile. - Time Spent with Patient Total time spent providing and/or coordinating discharge services: - Constitutional Vitals: Temp Pulse Resp BP Pulse Ox 98.1 F 67 17 155/65 94 10/11/17 07:45 10/11/17 07:45 10/11/17 07:45 10/11/17 07:45 10/11/17 07:45 General appearance: Present: A&O X 3, no acute distress - Head Head exam: Present: atraumatic, normocephalic - Eye Eye exam: Present: PERRL, conjuntiva pink, sclera anicteric Pupils: Present: PERRL - Neck Neck exam general surgery: Present: supple, trachea midline. Absent: lymphadenopathy - Respiratory Respiratory exam: Present: CTAB. Absent: accessory muscle use, rales, rhonchi, wheezes - Cardiovascular Cardiovascular exam: Present: RRR, +S1, +S2. Absent: diastolic murmur, gallop, rubs, systolic murmur - GI/Abdominal GI/Abdominal exam: Present: normal bowel sounds, soft, no peritoneal signs. Absent: distended, tenderness - Skin Skin exam: Present: dry, intact <Osmin Mustafa T - Last Filed: 10/11/17 16:09> Date of Encounter: 10/11/17 Date of admission: 10/05/17 17:29 Primary care physician: Philpipe Scott Jr, MD Consults: 10/07/17 12:32 Consult to Physical Therapy [CONS] Routine Comment: Evaluate, develop and implement POC Reason for Consult: Disposition planning. Therapy - weakness in bed. 10/07/17 12:33 OT [Consult to Occupational Therapy] [CONS] Routine Comment: Evaluate, develop and implement POC Reason for Consult: dispo planning 10/11/17 08:19 Consult to Four Slide Operator [CONS] Routine Reason for SW Consult: wants ecf Hospital course: Ms. Hardy is a 77 year old female - Time Spent with Patient Total time spent providing and/or coordinating discharge services: - Constitutional Vitals: Temp Pulse Resp BP Pulse Ox 98.3 F 63 17 142/69 96 10/11/17 11:11 10/11/17 11:11 10/11/17 11:11 10/11/17 11:11 10/11/17 11:11 - Attending Attestation Seen and examined with caregivers non medical, agree with plan.
[2017-10-11 11:23] VITALS: BP 142/69
[2017-10-11] MEDS: Vancomycin Oral Soln 250 MG/5 ML UDC PO SCH ×3 (11:45→17:18)
--- NOTE | 2017-10-11 15:42 | Physician Discharge Referral ---
ExtendedCare Referral Info Transfer To: [place] Provider in Charge after Transfer: PCP Institutional Level of Care: Skilled - Diagnosis (1) Intractable nausea and vomiting Priority: Primary Status: Resolved (2) C. difficile colitis Priority: Secondary Status: Acute (3) Chronic gastritis Priority: Secondary Status: Acute (4) History of colostomy Priority: Secondary Status: Chronic (5) HTN (hypertension) Priority: Secondary Status: Chronic (6) Leukopenia Priority: Secondary Status: Acute - Transfer Medications Prescriptions: metroNIDAZOLE [Flagyl] 500 mg PO TID #6 tablet Vancomycin Oral Soln [Vancocin] 125 mg PO QID 2 Days #1 bottle Home Medications: Carbidopa/Levodopa 25/100 [Sinemet 25/100] 1 each PO TID 07/20/17 [History] Amlodipine Besylate 10 mg PO DAILY 10/02/17 [History] Aspirin 81 mg PO DAILY 10/02/17 [History] FLUoxetine HCl [Fluoxetine HCl] 40 mg PO DAILY 10/02/17 [History] Glimepiride [Amaryl] 4 mg PO DAILY 10/02/17 [History] HYDROcodone/Acet 5/325 mg [[place] 5-325 mg] 1 tab PO Q4H PRN #10 tab 10/02/17 [Rx ] Metformin HCl [Glucophage] 1,000 mg PO BID 10/02/17 [History] Metoclopramide HCl 5 mg PO QID PRN 10/02/17 [History] Metoprolol [Lopressor] 25 mg PO BID 10/02/17 [History] Omeprazole [PriLOSEC] 20 mg PO DAILY 10/02/17 [History] Potassium Chloride [K-Tab ER] 20 meq PO DAILY 10/02/17 [History] Vancomycin Oral Soln [Vancocin] 125 mg PO QID 2 Days #1 bottle 10/11/17 [Rx] metroNIDAZOLE [Flagyl] 500 mg PO TID #6 tablet 10/11/17 [Rx] Allergies/Adverse Reactions: 3 Allergy/AdvReac Type Severity Reaction Status Date / Time RODGER Inhibitors AdvReac See Verified 10/02/17 07:14 Comments ampicillin AdvReac See Verified 10/02/17 07:14 Comments lisinopril AdvReac See Verified 10/02/17 07:14 Comments Tetracycline AdvReac See Verified 10/02/17 07:14 Comments - Respiratory Orders Smoking Cessation: Smoking cessation has been advised. For more information, call the [place] Tobacco Quit Line at 9-454-SKOK-NOW. - Diet Orders Regular CERTIFICATION: I certify that the transfer of the above named patient to an Extended Care Facility is necessary for the continuing treatment of the diagnosis listed. The above information is true and accurate reflection of patient's current condition. Confidential - Redisclosure prohibited without a patient's written consent.
== END 2017-10-11 17:37 | disposition home or self-care (01) | DRG 694 ==
LOC: 2ANU 14:50 → EMEROO 14:50 → 2ANU 18:40 → SUATTDRO 10-05 17:29 → 2ANU 10-06 02:54
PROVIDERS: ADMIT Internal Medicine; ATTEND Internal Medicine
PROC: ENDOEBX (2017-10-09 13:30)

== ENCOUNTER 2017-10-23 10:12 | Observation (INO) ==
[2017-10-23 10:48] LABS: Hematocrit 31.1 % (35.3-44.9); Hemoglobin 10.3 g/dL (11.5-15.4); Mean Corpuscular HGB Conc 33.1 g/dL (31.6-35.5); Mean Corpuscular Hemoglobin 30.1 pg (28.0-33.3); Mean Corpuscular Volume 90.9 fL (83.0-100.0); Mean Platelet Volume 10.4 fL (9.4-12.4); Platelet Count 218 K/mcL (140-400); Red Blood Count 3.42 M/mcL (3.82-4.97); Red Cell Distribution Width 12.5 % (11.5-14.5)
[2017-10-23 10:49] LABS: Eosinophils # 0.1 K/mcL (0.0-0.6)
[2017-10-23 10:50] LABS: Monocytes # 0.3 K/mcL (0.0-1.3)
[2017-10-23 10:58] LABS: INR 1.1; Prothrombin Time 11.9 Seconds (9.4-12.1)
[2017-10-23 11:00] LABS: Albumin 2.6 g/dL (3.5-5.0); Albumin/Globulin Ratio 0.6 (1.1-2.2); Alkaline Phosphatase 99 Units/L (38-126); Aspartate Amino Transferase 7 Units/L (5-34); BUN/Creatinine Ratio 13 (6-26); Bilirubin,Total 0.5 mg/dL (0.2-1.2); Blood Urea Nitrogen 9 mg/dL (7-20); Calcium 9.9 mg/dL (8.6-10.8); Carbon Dioxide 24 mEq/L (19-29); Chloride 102 mEq/L (98-109); Globulin 4.5 g/dL (2.4-3.5); Glucose 130 mg/dL (70-99); Osmolality,Calculated 280 (280-300); Sodium 135 mEq/L (136-145); Total Protein 7.1 g/dL (6.0-8.3); eGFR For African Americans > 60 (> 60); eGFR For Non-African Americans > 60 (> 60)
[2017-10-23 11:01] LABS: Bilirubin,Urine Negative (Negative); Blood,Urine Negative (Negative); Clarity,Urine Clear (Clear); Color,Urine Dark Yellow (Yellow); Glucose,Urine (UA) Normal (Normal); Ketones,Urine Trace mg/dL (Negative); Leukocyte Esterase,Urine Negative (Negative); Nitrite,Urine Negative (Negative); Protein,Urine 100 mg/dL (Neg-Trace); Specific Gravity,Urine 1.023 (1.010-1.025); Urobilinogen,Urine Normal (Normal)
[2017-10-23 11:02] LABS: Alanine Aminotransferase < 6 Units/L (0-55)
[2017-10-23 11:04] LABS: Bacteria,Urine None Seen per hpf (None-Few); Hyaline Casts,Urine None Seen per lpf (None-Few); RBC,Urine 0-3 per hpf (0-3); Squamous Epithelial Cell,Urine None Seen per lpf (None-Few); WBC,Urine 0-3 per hpf (0-3)
[2017-10-23 11:14] LABS: Lymphocytes # 0.6 K/mcL (0.6-4.6); Neutrophils # 0.4 K/mcL (1.6-8.9); Platelet Estimate Normal (Normal); Polychromasia 1+ (Not Present); Schistocytes 1+ (Not Present); Target Cells 1+ (Not Present); Tear Drop Cells 1+ (Not Present); Toxic Vacuolation Present (Not Present)
[2017-10-23 11:15] LABS: Smudge Cells Present (Not Present); Toxic Granulation Present (Not Present)
--- NOTE | 2017-10-23 11:29 | Emergency Department Note ---
Disposition Clinical Impression: Weakness, Chronic neutropenia, Altered mental status Disposition: Admitted As Inpatient Condition: Fair Time of Disposition: 12:00 General Adult HPI - General Chief complaint: ED Weakness Stated complaint: weakness Time Seen by Provider: 10/23/17 10:13 Source: EMS Mode of arrival: ambulatory Limitations: altered mental status, physical limitation Nursing Notes Reviewed: Yes Vital Signs Reviewed: Yes - History of Present Illness HPI Narrative: History source: Patient is unable to provide information for this note. Info was gathered from the patient, hospital staff, family, the patient's chart. History limitations: Patient condition Medications: As per nurses note 77-year-old female brought in by family for concerns of deterioration of health. Patient has a history of long-standing neutropenia, requiring Neulasta intermittently. Family states the patient was admitted for multiple UTIs and then developed C. difficile infection requiring admission to the hospital. She has been off antibiotics for about a week now with normal stools and white count has been decreasing. They state that when her white count dips below 1.6 she generally starts to become nauseated and is unable to function very well at home. Patient was evaluated by the crab catcher today in the office who referred her to the emergency department for further evaluation and likely admission to the hospital. Family states the patient has had a precipitous drop in her ability to function at home. She was able to ambulate to the bathroom and carry a full conversation a few days ago however now she is unable to do either of those things. Pain Scale: 0 - Related Data Home Medications Medication Instructions Recorded Confirmed Carbidopa/Levodopa 25/100 [Sinemet 1 each PO TID 07/20/17 10/23/17 25/100] Amlodipine Besylate 10 mg PO DAILY 10/02/17 10/23/17 Aspirin 81 mg PO DAILY 10/02/17 10/23/17 FLUoxetine HCl [Fluoxetine HCl] 40 mg PO DAILY 10/02/17 10/23/17 Glimepiride [Amaryl] 4 mg PO DAILY 10/02/17 10/23/17 Metformin HCl [Glucophage] 1,000 mg PO BID 10/02/17 10/23/17 Metoprolol [Lopressor] 25 mg PO BID 10/02/17 10/23/17 Omeprazole [PriLOSEC] 20 mg PO DAILY 10/02/17 10/23/17 Potassium Chloride [K-Tab ER] 20 meq PO DAILY 10/02/17 10/23/17 Metoclopramide HCl 5 mg PO QID PRN 10/23/17 10/23/17 Previous Rx's Medication Instructions Recorded HYDROcodone/Acet 5/325 mg [[place] 1 tab PO Q4H PRN #10 tab 10/02/17 5-325 mg] Allergies Allergy/AdvReac Type Severity Reaction Status Date / Time RODGER Inhibitors AdvReac See Verified 10/23/17 13:06 Comments ampicillin AdvReac See Verified 10/23/17 13:06 Comments lisinopril AdvReac See Verified 10/23/17 13:06 Comments Tetracycline AdvReac See Verified 10/23/17 13:06 Comments All systems ED: reviewed and negative except as stated. Review of Systems: As Per HPI Constitutional: Reports: weakness. Denies: fever, chills Cardiovascular: Denies: chest pain, palpitations, dyspnea on exertion Respiratory: Denies: cough, dyspnea, wheezes Gastrointestinal: Reports: abdominal pain. Denies: nausea, vomiting, diarrhea Past Medical History - Past Medical History Attestation: Yes The following information was validated with the patient. Source: patient Medical history: Reports: arthritis, diabetes, GERD, hypertension, kidney stones , osteoporosis, RA, thyroid disease, valvular heart disease, other Surgical history: Reports: cataract, cholecystectomy, colectomy, colostomy, herniorrhaphy, knee replacement, ureteral stent Psychiatric history: Reports: anxiety, depression GEOLOGIST PETROLEUM history: Reports: no GEOLOGIST PETROLEUM history - Social History Smoking Status: Never smoker Smokeless Tobacco Status: No Alcohol use: Reports: none Drug use: Reports: none Physical Exam General: Alert and in no acute distress Skin: Warm, dry, intact Head: Normocephalic and atraumatic Neck: Supple, trachea midline and no tenderness Cardiovascular: RRR, no murmur, normal perfusion Respiratory: CTAB, no wheezing, cough, or respiratory distress Musculoskeletal: Normal strength, no tenderness, swelling or deformity GI: Soft, mild tenderness to palpation of the generalized abdomen without localization, rigidity, guarding, or rebound. nondistended. Bowel sounds present Neuro: No focal deficits noted on exam - General Limitations: no limitations General appearance: alert, lethargic Course Vital Signs Temperature 98.5 F 10/23/17 10:13 Pulse Rate 75 10/23/17 10:13 Respiratory Rate 16 10/23/17 10:13 Blood Pressure 135/71 10/23/17 10:13 O2 Sat by Pulse Oximetry 93 10/23/17 10:13 Temperature 97.6 F 10/23/17 14:48 Pulse Rate 73 10/23/17 14:48 Respiratory Rate 16 10/23/17 13:07 Blood Pressure 165/77 10/23/17 14:48 O2 Sat by Pulse Oximetry 91 10/23/17 14:48 Oxygen Delivery Oxygen Delivery Room Air Medical Decision Making - MDM Narrative Medical decision making narrative: Urinalysis negative for urinary tract infection. Chest x-ray did not show obvious infiltrate. I will withhold antibiotics for now as patient has a history of recent C. difficile. Patient and family felt comfortable with this plan. Hospitalist accepted her for further care and evaluation. - Medical Records Medical records reviewed: Yes I reviewed the patient's medical records. - Lab Data Lab results reviewed: Yes I reviewed the patient's lab results. Result diagrams: 10/23/17 10:39 10/23/17 10:39 Lab Results 10/23/17 10/23/17 10/23/17 Range/Units 10:39 10:39 10:39 WBC 1.4 L (4.3-11.1) K/mcL RBC 3.42 L (3.82-4.97) M/mcL Hgb 10.3 L (11.5-15.4) g/dL Hct 31.1 L (35.3-44.9) % MCV 90.9 (83.0-100.0) fL MCH 30.1 (28.0-33.3) pg MCHC 33.1 (31.6-35.5) g/dL RDW 12.5 (11.5-14.5) % Plt Count 218 (140-400) K/mcL MPV 10.4 (9.4-12.4) fL Seg Neutrophils % 26.0 % Lymphocytes % 40.0 % Monocytes % 24.0 % Eosinophils % 10.0 % Neutrophils # 0.4 L (1.6-8.9) K/mcL Lymphocytes # 0.6 (0.6-4.6) K/mcL Monocytes # 0.3 (0.0-1.3) K/mcL Eosinophils # 0.1 (0.0-0.6) K/mcL Smudge Cells Present A (Not Present) Toxic Granulation Present A (Not Present) Toxic Vacuolation Present A (Not Present) Platelet Estimate Normal (Normal) Polychromasia 1+ A (Not Present) Target Cells 1+ A (Not Present) Tear Drop Cells 1+ A (Not Present) Schistocytes 1+ A (Not Present) PT 11.9 (9.4-12.1) Seconds INR 1.1 Sodium 135 L (136-145) mEq/L Potassium 4.0 (3.5-4.5) mEq/L Chloride 102 (98-109) mEq/L Carbon Dioxide 24 (19-29) mEq/L BUN 9 (7-20) mg/dL Creatinine 0.71 (0.57-1.11) mg/dL Est GFR ( Amer) > 60 (> 60) Est GFR (Non-Af Amer) > 60 (> 60) BUN/Creatinine Ratio 13 (6-26) Glucose 130 H (70-99) mg/dL Calculated Osmolality 280 (280-300) Lactic Acid (0.5-2.2) mmol/L Calcium 9.9 (8.6-10.8) mg/dL Phosphorus 2.7 (2.3-4.7) mg/dL Magnesium 1.0 L (1.6-2.6) mg/dL Total Bilirubin 0.5 (0.2-1.2) mg/dL AST 7 (5-34) Units/L ALT < 6 (0-55) Units/L Alkaline Phosphatase 99 (38-126) Units/L Troponin I (0-0.03) ng/mL Serum Total Protein 7.1 (6.0-8.3) g/dL Albumin 2.6 L (3.5-5.0) g/dL Globulin 4.5 H (2.4-3.5) g/dL Albumin/Globulin Ratio 0.6 L (1.1-2.2) Urine Color (Yellow) Urine Clarity (Clear) Urine pH (5.0-8.0) pH Units Ur Specific [place] (1.010-1.025) Urine Protein (Neg-Trace) mg/dL Urine Glucose (UA) (Normal) mg/dL Urine Ketones (Negative) mg/dL Urine Blood (Negative) Urine Nitrite (Negative) Urine Bilirubin (Negative) Urine Urobilinogen (Normal) mg/dL Ur Leukocyte Esterase (Negative) Urine Microscopic RBC (0-3) per hpf Urine Microscopic WBC (0-3) per hpf Ur Squamous Epith Cells (None-Few) per lpf Urine Bacteria (None-Few) per hpf Hyaline Casts (None-Few) per lpf Ur Culture Indicated? (NO) 10/23/17 10/23/17 10/23/17 Range/Units 10:39 10:39 10:50 WBC (4.3-11.1) K/mcL RBC (3.82-4.97) M/mcL Hgb (11.5-15.4) g/dL Hct (35.3-44.9) % MCV (83.0-100.0) fL MCH (28.0-33.3) pg MCHC (31.6-35.5) g/dL RDW (11.5-14.5) % Plt Count (140-400) K/mcL MPV (9.4-12.4) fL Seg Neutrophils % % Lymphocytes % % Monocytes % % Eosinophils % % Neutrophils # (1.6-8.9) K/mcL Lymphocytes # (0.6-4.6) K/mcL Monocytes # (0.0-1.3) K/mcL Eosinophils # (0.0-0.6) K/mcL Smudge Cells (Not Present) Toxic Granulation (Not Present) Toxic Vacuolation (Not Present) Platelet Estimate (Normal) Polychromasia (Not Present) Target Cells (Not Present) Tear Drop Cells (Not Present) Schistocytes (Not Present) PT (9.4-12.1) Seconds INR Sodium (136-145) mEq/L Potassium (3.5-4.5) mEq/L Chloride (98-109) mEq/L Carbon Dioxide (19-29) mEq/L BUN (7-20) mg/dL Creatinine (0.57-1.11) mg/dL Est GFR ( Amer) (> 60) Est GFR (Non-Af Amer) (> 60) BUN/Creatinine Ratio (6-26) Glucose (70-99) mg/dL Calculated Osmolality (280-300) Lactic Acid 1.0 (0.5-2.2) mmol/L Calcium (8.6-10.8) mg/dL Phosphorus (2.3-4.7) mg/dL Magnesium (1.6-2.6) mg/dL Total Bilirubin (0.2-1.2) mg/dL AST (5-34) Units/L ALT (0-55) Units/L Alkaline Phosphatase (38-126) Units/L Troponin I 0.00 (0-0.03) ng/mL Serum Total Protein (6.0-8.3) g/dL Albumin (3.5-5.0) g/dL Globulin (2.4-3.5) g/dL Albumin/Globulin Ratio (1.1-2.2) Urine Color Dark Yellow (Yellow) Urine Clarity Clear (Clear) Urine pH 6.0 (5.0-8.0) pH Units Ur Specific [place] 1.023 (1.010-1.025) Urine Protein 100 H (Neg-Trace) mg/dL Urine Glucose (UA) Normal (Normal) mg/dL Urine Ketones Trace H (Negative) mg/dL Urine Blood Negative (Negative) Urine Nitrite Negative (Negative) Urine Bilirubin Negative (Negative) Urine Urobilinogen Normal (Normal) mg/dL Ur Leukocyte Esterase Negative (Negative) Urine Microscopic RBC 0-3 (0-3) per hpf Urine Microscopic WBC 0-3 (0-3) per hpf Ur Squamous Epith Cells None Seen (None-Few) per lpf Urine Bacteria None Seen (None-Few) per hpf Hyaline Casts None Seen (None-Few) per lpf Ur Culture Indicated? NO (NO) - Radiology Data Radiology results reviewed: Yes I reviewed the patient's radiology results. - EKG Data EKG #1 EKG attestation: Yes I reviewed and interpreted this EKG. EKG results narrative: ECG - interpreted by ED physician. Rate 74, normal sinus rhythm, no STEMI, [place], QT intervals, and QRS within normal limits
[2017-10-23] MEDS ORDERED: *HR* HYDROcodone/Acet 5/325 mg TABLET PO PRN ×2 (13:40→13:58)
[2017-10-23] MEDS ORDERED: *HR* Dextrose 50 % in Water (Syg) 50 ML SYRINGE IVP PRN (13:50)
[2017-10-23] MEDS ORDERED: Dextrose Gel 15 GM PO PRN ×2 (13:50)
[2017-10-23] MEDS ORDERED: Naloxone 0.4 MG/ML INJ IVP PRN (13:50)
[2017-10-23] MEDS ORDERED: D5% in Water 1,000 ML IVC PRN (13:50)
--- NOTE | 2017-10-23 14:21 | Internal Med History&Physical ---
<Leonides Corbin J - Last Filed: 10/23/17 14:08> Date of Encounter: 10/23/17 Time of Encounter: 14:08 Assessment and Plan (1) Generalized weakness Current visit: No Status: Acute Recently admitted for nephrolithiasis, UTI and Clostridium difficile. Was discharged to [facility] for rehabilitation. While at [facility] to become profoundly fatigued, generalized weakness and has been vomiting for approximately 1 week. PT, OT, social insurance analyst consult for return to [facility] Dietary to see due to malnutrition, and oral supplementation Oncology to see due to neutropenia and for dosage of Neupogen GI consult due to ongoing nausea and vomiting and recent diagnosis of Schatzki' s ring CBC, CMP, magnesium and phosphorus in the morning (2) Nausea & vomiting Current visit: Yes Status: Acute Reports she last vomited approximately 2 days ago. Has not had inadequate oral intake for approximately one week. She has history of chronic gastritis, recent EGD revealed a Schatzki's ring, with inflammation of the entire gastric body. I suspect this is because of nausea and vomiting Start antiemetics, and Carafate. for nausea and vomiting 2 L IV fluid bolus then 0.9% normal saline at 125 mL per hour thereafter Strict intake and output monitoring Check CMP/CBC MG, phos, now Obtain urinalysis now Consult GI d/t recent dx of Schatzki's ring and continued nausea and vomiting- I have called and they will see the patient tomorrow Consult dietary for oral supplementation due to severe protein calorie malnutrition Qualifiers: Vomiting type: unspecified Vomiting Intractability: intractable Qualified Code(s): R11.2 - Nausea with vomiting, unspecified (3) Severe protein-calorie malnutrition Current visit: Yes Status: Acute See plan above (4) Dehydration Current visit: Yes Status: Acute See plan above (5) Hypertension Current visit: Yes Status: Chronic Stable. Continue Norvasc and Lopressor Qualifiers: Hypertension type: essential hypertension Qualified Code(s): I10 - Essential (primary) hypertension (6) Nephrolithiasis Current visit: Yes Status: Acute Right nonobstructive nephrolithiasis. Denies any pain, does not appear toxic. Strict intake and output. Continue to monitor. (7) Frail elderly Current visit: Yes Status: Chronic See plan above (8) Neutropenic Current visit: Yes Status: Chronic Chronic, consult oncology for further recommendations and management. Oncology to dose Neupogen Qualifiers: Qualified Code(s): D70.9 - Neutropenia, unspecified (9) Type 2 diabetes mellitus Current visit: Yes Status: Chronic Stop oral hypoglycemic agents. Start sliding scale insulin coverage with before meals and at bedtime Accu-Cheks and diabetic diet Qualifiers: Diabetes mellitus complication status: with skin complications Diabetes mellitus complication detail: with other skin complication Diabetes mellitus retirement insulin use: without retirement use Qualified Code(s): E11.628 - Type 2 diabetes mellitus with other skin complications (10) History of Clostridium difficile infection Current visit: Yes Status: Chronic Was recently admitted to the hospital in September and developed C. difficile following IV antibiotic therapy. Was discharged on vancomycin and Flagyl. Reporting solid bowel movements at this time, no diarrhea. She is now reporting nausea and vomiting for one week. Due to history of recent C. difficile infection I will Recheck C. difficile PCR (11) DVT prophylaxis Current visit: Yes Status: Acute Heparin 5000 units subcutaneous twice a day Internal Medicine - H&P: HPI Chief complaint: Generalized weakness, fatigue, and dehydration Admitted From: Home Plans for Post Hospital Care: Home History of present illness: Ms. Hardy is a 77 year old female with a PMH of chronic neutropenia (being followed by oncology) arthritis, DM, GERD, HTN, kidney stones, osteoporosis, RA , hypothyroidism, and valvular heart disease. She presents today to [facility] for a 1 week h/o generalized weakness and fatigue. All information obtained from at bedside, patient, and chart review. She states that she was recently admitted for nephrolithiasis and after receiving lithotripsy she developed an obstruction to her ureter. Additionally, she developed a UTI and was treated with IV antibiotics. While being treated for UTI she ended up with C-Diff. She now presents today with N/V, epigastric pain, anorexia, early satiety, weakness and fatigue. She denies any fever, chills, CP, SOB, weight- loss, night sweats, or swelling. She was at her oncology appointment for neupogen injections and reported her symptoms to her provider who then sent her to [facility] ED for rehydration and neupogen and further monitoring. Past Med Surg Social Fam HX - Past Medical History Medical history: arthritis, diabetes, GERD, hypertension, kidney stones, osteoporosis, RA, thyroid disease, valvular heart disease, other Psychiatric history: anxiety, depression - Past Surgical History Surgical History: cataract, cholecystectomy, colectomy, colostomy, herniorrhaphy , knee replacement, ureteral stent - Social History Smoking Status: Never smoker Smokeless Tobacco Status: No Alcohol use: none Drug use: none - Family History Son Adopted: No Living Status: Still Living Hx Family Cardiac Disorders: No Hx Family Respiratory Disorders: Yes Hx Family Cancer: No Hx Family GI Disorders: No Hx Family Endocrine Disorder: No Hx Family Neuromuscular Disorders: No Hx Family Neurologic Disorders: No Hx Family HEENT Disorders: No Hx Family Autoimmune Disorders: Yes (Autoimmune dx, unable to remember name) Father Living Status: Hx Family Cardiac Disorders: Yes (PR, HD, HTN) Mother Living Status: Hx Family Cardiac Disorders: Yes (HD) Brother Living Status: Hx Family Cardiac Disorders: Yes (PR, HD) Internal Medicine - H&P: Meds Carbidopa/Levodopa 25/100 [Sinemet 25/100] 1 each PO TID 07/20/17 [History] Amlodipine Besylate 10 mg PO DAILY 10/02/17 [History] Aspirin 81 mg PO DAILY 10/02/17 [History] FLUoxetine HCl [Fluoxetine HCl] 40 mg PO DAILY 10/02/17 [History] Glimepiride [Amaryl] 4 mg PO DAILY 10/02/17 [History] HYDROcodone/Acet 5/325 mg [[place] 5-325 mg] 1 tab PO Q4H PRN #10 tab 10/02/17 [Rx ] Metformin HCl [Glucophage] 1,000 mg PO BID 10/02/17 [History] Metoprolol [Lopressor] 25 mg PO BID 10/02/17 [History] Omeprazole [PriLOSEC] 20 mg PO DAILY 10/02/17 [History] Potassium Chloride [K-Tab ER] 20 meq PO DAILY 10/02/17 [History] Metoclopramide HCl 5 mg PO QID PRN 10/23/17 [History] 3 Allergy/AdvReac Type Severity Reaction Status Date / Time RODGER Inhibitors AdvReac See Verified 10/23/17 13:06 Comments ampicillin AdvReac See Verified 10/23/17 13:06 Comments lisinopril AdvReac See Verified 10/23/17 13:06 Comments Tetracycline AdvReac See Verified 10/23/17 13:06 Comments All Systems PM: A 10-system review of systems was performed and is negative for pertinent findings except as documented above in the HPI. - Constitutional Constitutional: anorexia, fatigue, weakness, no chills, no excessive sweating, no fever(s), no falls, no night sweats, no weight loss - EENT Eyes: no change in vision, no discharge, no pain, no photophobia Ears: no ear discharge, no ear pain, no tinnitus Nose, mouth and throat: no dysphagia, no nasal discharge, no neck pain, no sore throat - Cardiovascular Cardiovascular ROS IM: no chest pain, no diaphoresis, no dyspnea, no edema, no irregular heart rhythm, no lightheadedness, no palpitations, no syncope - Respiratory Respiratory: no cough, no dyspnea, no wheezing, no excessive phlegm production - Gastrointestinal Gastrointestinal: early satiety, nausea, vomiting (last episode was approximately 2 days ago), no abdominal pain (intermittent epigastric pain), no belching, no bloating, no change in bowel habits, no change in stool character, no coffee ground emesis, no diarrhea, no hematemesis, no hematochezia, no melena - Genitourinary Genitourinary: no change in urinary stream, no dysuria, no flank pain, no hematuria - Musculoskeletal Musculoskeletal ROS IM: no numbness, no tingling - Integumentary Integumentary IM: no rash, no unusual bruising - Neurological Neurological ROS: weakness, no confusion, no convulsions, no dizziness, no focal weakness, no frequent falls, no headache(s), no numbness, no tingling, no tremor(s), no vertigo - Hematologic/Lymphatic Hematologic/Lymphatic: no easy bruising - Constitutional Vitals: Temp Pulse Resp BP Pulse Ox 98.5 F 70 16 131/74 98 10/23/17 10:13 10/23/17 13:07 10/23/17 13:07 10/23/17 13:07 10/23/17 13:07 General appearance: Present: cooperative, A&O X 3, no acute distress, answers questions appropriately - Head Head exam: Present: atraumatic, normocephalic - Neck Neck exam general surgery: Present: supple, trachea midline. Absent: lymphadenopathy - Respiratory Respiratory exam: Present: CTAB. Absent: accessory muscle use, rales, rhonchi, wheezes, tachypnea - Cardiovascular Cardiovascular exam: Present: RRR, +S1, +S2. Absent: diastolic murmur, gallop, rubs, systolic murmur - GI/Abdominal GI/Abdominal exam: Present: normal bowel sounds, soft, tenderness, no peritoneal signs. Absent: distended, guarding, rigid - Extremities Exam Extremities exam: Present: warm, radial pulses palpable and symmetrical. Absent : calf tenderness, cyanotic, pedal edema - Neurological Exam Neurological exam: Present: CN II-XII intact, oriented X3, no focal deficits. Absent: pronater drift, facial droop, speech deficit - Skin Skin exam: Present: dry, intact Internal Med - H&P Results - Labs CBC & Chem 7: 10/23/17 10:39 10/23/17 10:39 - Diagnostic Studies Chest x-ray Status: image reviewed by me Additional comments: negative CT scan - abdomen Status: image reviewed by me Additional comments: CT ABD/PEL- nonobstructive right nephrolithiasis, no acute abdominopelvic process <Fermin Girard - Last Filed: 10/23/17 17:08> Date of Encounter: 10/23/17 Time of Encounter: 15:45 Internal Medicine - H&P: HPI History of present illness: Ms. Hardy is a 77 year old female All Systems PM: A 10-system review of systems was performed and is negative for pertinent findings except as documented above in the HPI. - Constitutional Vitals: Temp Pulse Resp BP Pulse Ox 97.6 F 73 16 165/77 91 10/23/17 14:48 10/23/17 14:48 10/23/17 13:07 10/23/17 14:48 10/23/17 14:48 Internal Med - H&P Results - Labs CBC & Chem 7: 10/23/17 10:39 10/23/17 10:39 - Attending Attestation 77-year-old female patient with history of chronic neutropenia, esophageal rings status post recent agitation, recent C. difficile episode, recent episode of obstructive uropathy due to presented to the ER with complaints of generalized weakness, intractable nausea and vomiting and failure to thrive at home. She had just been discharged from the hospital to skilled rehabilitation but has continued to have intractable nausea and vomiting with no improvement. She denies any fever or chills. She has become increasingly fatigued. Denies any abdominal pain. On examination patient is awake and alert. Colostomy in place. No abdominal tenderness. Does have pallor. Heart sounds are normal. Lung sounds are within normal limits. Patient with generalized weakness and failure to thrive at home: In setting of esophageal rings yesterday have failed recent esophageal dilatation. Consult GI. Supportive care. We will also consult palliative care for goals of care in case patient remains unable to keep food down and may need other alternative feeding measures. Consult PTOT. Chronic neutropenia: Patient referred by oncology to possibly start Neupogen or Neulasta. We will consult oncology for their recommendations. At time of recent discharge from the hospital, her WBC count was 1.3. Today it is 1.4. No signs of acute infection or fever. No indication to start antibiotics at this time. Protein calorie malnutrition: Will consult dietitian for further recommendations regarding patient's diet. Diabetes mellitus type 2: Monitor blood sugars. Sliding scale insulin.
[2017-10-23 14:34] LABS: Phosphorous 2.7 mg/dL (2.3-4.7)
[2017-10-23] MEDS: Carbidopa/Levodopa 25/100 TABLET PO SCH ×2 (14:44→21:00)
[2017-10-23] MEDS: 0.9 % Sodium Chloride 1,000 ML IVC SCH ×3 (14:44→17:05)
[2017-10-23] MEDS: Aspirin 81 MG TAB.CHEW PO SCH (14:44)
[2017-10-23] MEDS: Sucralfate 1 GM TABLET PO SCH ×2 (15:27→21:00)
[2017-10-23] MEDS: Insulin LISPRO 300 UNITS/3 ML VIAL SQ SCH ×2 (15:28→20:55)
--- NOTE | 2017-10-23 16:24 | Oncology Inp Consult Note ---
Date of Encounter: 10/23/17 Time of Encounter: 16:24 Assessment and Plan (1) C. difficile colitis Status: Acute Assessment and plan: She does have very ronchus cough that is new. It could be from atelectasis versus infection as the CXR was interpreted as no active disease. She is clammy but has no fever. Given her recent bout of C. diff, abx may be worth holding at the moment but should the clinical status change they may definitely be indicated. (2) Chronic neutropenia Status: Acute Assessment and plan: will start neupogen. was fairly confident that the GCSF would be necessary and sufficient to improve the patient's course. (3) Generalized weakness Status: Acute Assessment and plan: From poor po intake. She had EGD before that showed a Shatzki ring that was dilated. however, even since then she continues to have vomiting with poor po intake and weight loss. Perhaps there is a developing gastoparesis. It is unclear the etiology. Reglan could be of help. (4) Nausea & vomiting Status: Acute Assessment and plan: Unclear etiology. See above. Qualifiers: Vomiting type: unspecified Vomiting Intractability: non-intractable Qualified Code(s): R11.2 - Nausea with vomiting, unspecified (5) Cough Status: Acute Assessment and plan: see above. - Data of Consult Requesting Physician: Jona Francis Primary Care Provider: Philippe Scott Jr, MD - Consult Narrative Reason for consult: weakness and neutropenia History of present illness: Ms. 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 diff and N/V and was brought to the outpatient clinic today where she was found to be extrremely weak. She was then sent to the ER for further evaluation and was ultimately admitted. She indicates that she has been getting continously weaker with perisistent vomiting since discharge. Her vomiting is not related to food. Most of the time, she will have the vomiting in the morning. She has not been eating much. She indicates that she has lost weight. No fevers. When she first arrived at the nursing facility, she was able to walk with a walker. However, now she cannot hardly get around at all without the assistance of a person and the walker. In the past 2-3 days, she has developed a cough. The indicates that she hasnt eaten anything for days. We are consulted regarding dosing her GCSF for her chronic autoimmune neutropenia. Past Med Surg Social Fam HX - Past Medical History Medical history: arthritis, diabetes, GERD, hypertension, kidney stones, osteoporosis, RA, thyroid disease, valvular heart disease, other Psychiatric history: anxiety, depression - Past Surgical History Surgical History: cataract, cholecystectomy, colectomy, colostomy, herniorrhaphy , knee replacement, ureteral stent - Social History Smoking Status: Never smoker Smokeless Tobacco Status: No Alcohol use: none Drug use: none - Family History Son Adopted: No Living Status: Still Living Hx Family Cardiac Disorders: No Hx Family Respiratory Disorders: Yes Hx Family Cancer: No Hx Family GI Disorders: No Hx Family Endocrine Disorder: No Hx Family Neuromuscular Disorders: No Hx Family Neurologic Disorders: No Hx Family HEENT Disorders: No Hx Family Autoimmune Disorders: Yes (Autoimmune dx, unable to remember name) Father Living Status: Hx Family Cardiac Disorders: Yes (OK, HD, HTN) Mother Living Status: Hx Family Cardiac Disorders: Yes (HD) Brother Living Status: Hx Family Cardiac Disorders: Yes (OK, HD) Medications and Allergies Carbidopa/Levodopa 25/100 [Sinemet 25/100] 1 each PO TID 07/20/17 [History] Amlodipine Besylate 10 mg PO DAILY 10/02/17 [History] Aspirin 81 mg PO DAILY 10/02/17 [History] FLUoxetine HCl [Fluoxetine HCl] 40 mg PO DAILY 10/02/17 [History] Glimepiride [Amaryl] 4 mg PO DAILY 10/02/17 [History] HYDROcodone/Acet 5/325 mg [Willcox 5-325 mg] 1 tab PO Q4H PRN #10 tab 10/02/17 [Rx ] Metformin HCl [Glucophage] 1,000 mg PO BID 10/02/17 [History] Metoprolol [Lopressor] 25 mg PO BID 10/02/17 [History] Omeprazole [PriLOSEC] 20 mg PO DAILY 10/02/17 [History] Potassium Chloride [K-Tab ER] 20 meq PO DAILY 10/02/17 [History] Metoclopramide HCl 5 mg PO QID PRN 10/23/17 [History] 3 Allergy/AdvReac Type Severity Reaction Status Date / Time RODGER Inhibitors AdvReac See Verified 10/23/17 13:06 Comments ampicillin AdvReac See Verified 10/23/17 13:06 Comments lisinopril AdvReac See Verified 10/23/17 13:06 Comments Tetracycline AdvReac See Verified 10/23/17 13:06 Comments Constitutional: Present: fatigue, weakness, weight loss. Absent: fever(s), increased appetite Nose, mouth and throat: Absent: mouth lesions Cardiovascular: Absent: chest pain, dyspnea, dyspnea on exertion Respiratory: Present: as per HPI, cough. Absent: dyspnea Gastrointestinal: Present: as per HPI, vomiting. Absent: abdominal pain Genitourinary: Absent: difficulty voiding, hematuria, urinary hesitancy Musculoskeletal: Present: as per HPI Neurological: Absent: tingling Endocrine: Present: excessive sweating Hematologic/Lymphatic: Absent: easy bleeding, easy bruising Oncology - Exam - Constitutional Vitals: Temp Pulse Resp BP Pulse Ox 97.6 F 73 16 165/77 91 10/23/17 14:48 10/23/17 14:48 10/23/17 13:07 10/23/17 14:48 10/23/17 14:48 General appearance: no acute distress, no febrile - Eye Eye exam: Present: EOMI - ENT ENT exam: Present: normal exam - Neck Neck exam: Absent: lymphadenopathy - Respiratory Respiratory exam: Present: decreased breath sounds, rhonchi. Absent: respiratory distress, wheezes, tachypnea - Expanded Respiratory Exam Location: decreased breath sounds: Left, Right, rhonchi: Left, Right - Cardiovascular Cardiovascular exam: Absent: irregular rhythm, systolic murmur, tachycardia - GI/Abdominal GI/Abdominal exam: Present: normal bowel sounds, soft. Absent: diminished bowel sounds, firm, tenderness - Extremities Exam Extremities exam: Present: normal capillary refill, normal inspection. Absent: pedal edema - Neurological Exam Neurological exam: Present: alert, oriented X3. Absent: speech deficit Consult Discharge Plan - Plan Referrals: Philippe Scott Jr, MD [Primary Care Provider] -
[2017-10-23] MEDS: *HR* Heparin 5,000 UNIT/ML VIAL SQ SCH (16:59)
--- NOTE | 2017-10-23 17:55 | Electrocardiograph Report ---
[place] [id number] Test Date: 2017-10-23 Pat Name: Sheree Hardy Department: [id number] Room: 2A11 Gender: F Wireless Technician: MSC : [id number] Requested By: Kiran Ferrell Order Number: [id number] Reading MD: Noemy Lacey Measurements Intervals [place] Rate: 74 P: -28 AK: 199 QRS: -44 QRSD: 100 T: 15 QT: 405 QTc: 433 Interpretive Statements SINUS RHYTHM MARKED LEFT AXIS DEVIATION [QRS AXIS < -30] VOLTAGE CRITERIA FOR LVH [MEETS CRITERIA IN ONE OF: R(aVL), S(V1), R(V5), R(V5/V6) +S(V1)] Electronically Signed On 10-23-2017 17:53:28 EST by Noemy Lacey
[2017-10-24 04:31] LABS: Albumin 2.2 g/dL (3.5-5.0); Albumin/Globulin Ratio 0.6 (1.1-2.2); Alkaline Phosphatase 87 Units/L (38-126); Aspartate Amino Transferase 9 Units/L (5-34); BUN/Creatinine Ratio 10 (6-26); Bilirubin,Total 0.6 mg/dL (0.2-1.2); Blood Urea Nitrogen 6 mg/dL (7-20); Calcium 8.5 mg/dL (8.6-10.8); Carbon Dioxide 17 mEq/L (19-29); Chloride 108 mEq/L (98-109); Globulin 3.9 g/dL (2.4-3.5); Glucose 103 mg/dL (70-99); Magnesium 0.9 mg/dL (1.6-2.6); Osmolality,Calculated 278 (280-300); Phosphorous 2.4 mg/dL (2.3-4.7); Sodium 135 mEq/L (136-145); Total Protein 6.1 g/dL (6.0-8.3); eGFR For African Americans > 60 (> 60); eGFR For Non-African Americans > 60 (> 60)
[2017-10-24 04:32] LABS: Alanine Aminotransferase < 6 Units/L (0-55)
[2017-10-24 04:43] LABS: Hematocrit 28.5 % (35.3-44.9); Hemoglobin 9.7 g/dL (11.5-15.4); Mean Corpuscular Hemoglobin 30.8 pg (28.0-33.3); Mean Corpuscular Volume 90.5 fL (83.0-100.0); Mean Platelet Volume 10.4 fL (9.4-12.4); Nucleated Red Blood Cells 0.7 /100 WBC (0); Platelet Count 168 K/mcL (140-400); Red Blood Count 3.15 M/mcL (3.82-4.97); Red Cell Distribution Width 12.5 % (11.5-14.5)
[2017-10-24 05:23] LABS: Eosinophils # 0.4 K/mcL (0.0-0.6); Lymphocytes # 0.9 K/mcL (0.6-4.6); Monocytes # 0.7 K/mcL (0.0-1.3); Neutrophils # 0.7 K/mcL (1.6-8.9); Platelet Estimate Normal (Normal)
[2017-10-24] MEDS: *HR* Heparin 5,000 UNIT/ML VIAL SQ SCH ×2 (05:54→17:02)
[2017-10-24] MEDS: Sucralfate 1 GM TABLET PO SCH ×4 (07:53→21:11)
[2017-10-24] MEDS: Aspirin 81 MG TAB.CHEW PO SCH (07:53)
[2017-10-24] MEDS: Carbidopa/Levodopa 25/100 TABLET PO SCH ×3 (07:53→21:12)
[2017-10-24] MEDS: FLUoxetine 20 MG CAPSULE PO SCH (07:53)
[2017-10-24] MEDS: amLODIPine 5 MG TABLET PO SCH (07:53)
[2017-10-24] MEDS: Insulin LISPRO 300 UNITS/3 ML VIAL SQ SCH ×4 (07:56→21:12)
--- NOTE | 2017-10-24 11:01 | Gastroenterology Consult Note ---
<Cresencio Barker - Last Filed: 10/24/17 10:58> Date of Encounter: 10/24/17 Time of Encounter: 10:45 - Assessment and plan (1) Nausea & vomiting Current Visit: No Status: Acute Assessment and plan: Recent EGD with moderate Schatzski ring and gastritis. No need for repeat EGD at this time. Recommend continuing PPI and antiemetic. Stop Reglan as she has history of Parkinson's. Qualifiers: Vomiting type: unspecified Vomiting Intractability: non-intractable Qualified Code(s): R11.2 - Nausea with vomiting, unspecified (2) Gastritis Current Visit: Yes Status: Acute Assessment and plan: Continue daily PPI. Recommend continuing PPI at discharge as well. Qualifiers: Gastritis type: other gastritis Chronicity: chronic Gastritis bleeding: without bleeding Qualified Code(s): K29.50 - Unspecified chronic gastritis without bleeding (3) History of Clostridium difficile infection Current Visit: No Status: Chronic Assessment and plan: Check C diff PCR. (4) History of colostomy Current Visit: No Status: Chronic (5) Neutropenic Current Visit: No Status: Chronic Qualifiers: Qualified Code(s): D70.9 - Neutropenia, unspecified (6) History of Parkinson's disease Current Visit: Yes Status: Acute Assessment and plan: Stop Reglan. - Time Spent With Patient Total time spent is greater than 50% in coordination of care (as documented) at patient's floor/unit and/or counseling patient: GI History of Present Illness - Data of Consult Patient: known to practice within the last 3 years Consult date: 10/24/17 Requesting Physician: Fermin Girard MD - Consult Narrative Reason for consult: nausea, vomiting History of present illness: Ms. Hardy is a 77 year old female with PMHx of neutropenia, DM, GERD, HTN, kidney stones, Parkinson's disease, and Yolanda procedure for perforated sigmoid diverticulitis who presented with 1 week h/o N/V, epigastric pain, anorexia, early satiety, weakness and fatigue. She was recently admitted for nephrolithiasis and after receiving lithotripsy she developed an obstruction to her ureter. She also developed a UTI and was treated with IV antibioticsShe tested positive for C diff on 10/06 without any complaints of diarrhea. During her recent hospitalization we were consulted for intractable nausea and vomiting. EGD with moderate Schatzski ring which was dilated, and chronic gastritis. We have been consulted due to continued nausea and vomiting since discharge. She has been vomiting in the morning. No fever, chills, chest pain, hematemesis, coffee-ground emesis, melena, or hematochezia. Procedures: EGD 10/09/2017 Dr. Campo: Moderate Schatzki ring-dilated, chronic gastritis, H. pylori negative. Colonoscopy 03/22/2016 Dr. Nolen: Diverticulosis, 2 hyperplastic polyps NSAIDs: ASA Anticoagulation: None Past Med Surg Social Fam HX - Past Medical History Medical history: arthritis, diabetes, GERD, hypertension, kidney stones, osteoporosis, RA, thyroid disease, valvular heart disease, other Psychiatric history: anxiety, depression - Past Surgical History Surgical History: cataract, cholecystectomy, colectomy, colostomy, herniorrhaphy , knee replacement, ureteral stent - Social History Smoking Status: Never smoker Smokeless Tobacco Status: No Alcohol use: none Drug use: none - Family History Son Adopted: No Living Status: Still Living Hx Family Cardiac Disorders: No Hx Family Respiratory Disorders: Yes Hx Family Cancer: No Hx Family GI Disorders: No Hx Family Endocrine Disorder: No Hx Family Neuromuscular Disorders: No Hx Family Neurologic Disorders: No Hx Family HEENT Disorders: No Hx Family Autoimmune Disorders: Yes (Autoimmune dx, unable to remember name) Father Living Status: Hx Family Cardiac Disorders: Yes ([place], HD, HTN) Mother Living Status: Hx Family Cardiac Disorders: Yes (HD) Brother Living Status: Hx Family Cardiac Disorders: Yes (PA, HD) - Gastrointestinal Gastrointestinal: Present: as per HPI - Constitutional Constitutional: as per HPI - EENT Eyes: as per HPI Ears: Present: as per HPI Nose, mouth and throat: Present: as per HPI - Cardiovascular Cardiovascular ROS: Present: as per HPI - Respiratory Respiratory IM: Present: as per HPI - Genitourinary Genitourinary: Absent: change in color, Urinary frequency - Neurological ROS Neurological GI: Present: as per HPI - Hematologic/Lymphatic Hematologic/Lymphatic pediatric: Present: as per HPI - Musculoskeletal Musculoskeletal ROS GI: Present: as per HPI - Integumentary Integumentary GI: Present: as per HPI - Psychiatric ROS Psychiatric GI: Present: as per HPI - Endocrine Endocrine IM: Present: as per HPI - Constitutional Vitals: Temp Pulse Resp BP Pulse Ox 97.3 F L 65 16 169/70 96 10/24/17 07:44 10/24/17 07:44 10/24/17 07:44 10/24/17 07:44 10/24/17 07:44 General appearance: Present: cooperative, A&O X 3, no acute distress, answers questions appropriately - Head Head exam: Present: atraumatic, normocephalic - Eye Eye exam: Present: normal appearance, sclera anicteric - ENT ENT exam: Present: mucous membranes dry - Neck Neck exam general surgery: Present: normal inspection, trachea midline - Respiratory Respiratory exam: Present: decreased breath sounds, rhonchi - Cardiovascular Cardiovascular exam: Present: RRR, +S1, +S2 - GI/Abdominal GI/Abdominal exam: Present: soft, no peritoneal signs. Absent: distended, firm , guarding, tenderness - Rectal Rectal exam: Present: deferred - Extremities Exam Extremities exam: Present: warm - Neurological Exam Neurological exam: Present: no focal deficits - Psychiatric Psychiatric exam: Present: normal affect, normal mood - Skin Skin exam: Present: dry, intact, normal color, warm Results - Labs CBC & Chem 7: 10/24/17 04:34 10/24/17 04:07 Labs: Last Result Calcium 8.5 mg/dL (8.6-10.8) L 10/24/17 04:07 Troponin I 0.00 ng/mL (0-0.03) 10/23/17 10:39 Entire Visit Hgb 9.7 g/dL (11.5-15.4) L 10/24/17 04:34 Hct 28.5 % (35.3-44.9) L 10/24/17 04:34 PT 11.9 Seconds (9.4-12.1) 10/23/17 10:39 Total Bilirubin 0.6 mg/dL (0.2-1.2) 10/24/17 04:07 AST 9 Units/L (5-34) 10/24/17 04:07 ALT < 6 Units/L (0-55) 10/24/17 04:07 - ABG ABG results: PT/INR, D-dimer PT 11.9 Seconds (9.4-12.1) 10/23/17 10:39 Consult Discharge Plan - Plan Referrals: Philippe Scott Jr, MD [Primary Care Provider] - <Arabella Perez - Last Filed: 10/24/17 17:59> Date of Encounter: 10/24/17 Time of Encounter: 17:55 - Time Spent With Patient Total time spent is greater than 50% in coordination of care (as documented) at patient's floor/unit and/or counseling patient: GI History of Present Illness - Data of Consult Requesting Physician: Fermin Girard MD - Consult Narrative History of present illness: Ms. Hardy is a 77 year old female - Constitutional Vitals: Temp Pulse Resp BP Pulse Ox 97.9 F 63 16 148/53 95 10/24/17 16:34 10/24/17 16:34 10/24/17 16:34 10/24/17 16:34 10/24/17 16:34 Results - Labs CBC & Chem 7: 10/24/17 04:34 10/24/17 04:07 Labs: Last Result Calcium 8.5 mg/dL (8.6-10.8) L 10/24/17 04:07 Troponin I 0.00 ng/mL (0-0.03) 10/23/17 10:39 Entire Visit Hgb 9.7 g/dL (11.5-15.4) L 10/24/17 04:34 Hct 28.5 % (35.3-44.9) L 10/24/17 04:34 PT 11.9 Seconds (9.4-12.1) 10/23/17 10:39 Total Bilirubin 0.6 mg/dL (0.2-1.2) 10/24/17 04:07 AST 9 Units/L (5-34) 10/24/17 04:07 ALT < 6 Units/L (0-55) 10/24/17 04:07 - ABG ABG results: PT/INR, D-dimer PT 11.9 Seconds (9.4-12.1) 10/23/17 10:39 - Attending Attestation I examined this patient and my medical decision-making was reviewed with the Resident Physician. I agree with the documented findings, disposition and treatment plan as described except to the extent set forth below.
--- NOTE | 2017-10-24 15:22 | Internal Med Progress Note ---
Date of Encounter: 10/24/17 Time of Encounter: 11:20 - Assessment and plan (1) Generalized weakness Current Visit: Yes Status: Acute Assessment and plan: Continue supportive care. Multifactorial. PTOT consult ordered. Social work are looking into placement at different facility per patient and family request. A review by [employer] in the member of the utilization review committee has been completed for this patient and I, Dr. Girard agreed that the status is to be changed to observation using condition code 44. (2) Frail elderly Current Visit: Yes Status: Chronic (3) History of Clostridium difficile infection Current Visit: No Status: Chronic Assessment and plan: No new episodes of diarrhea. We will cancel stool studies (4) Leukopenia Current Visit: Yes Status: Acute Assessment and plan: Improved with Neupogen. Oncology input appreciated. Qualifiers: Leukopenia type: neutropenia Neutropenia type: unspecified Qualified Code (s): D70.9 - Neutropenia, unspecified (5) Nausea & vomiting Current Visit: Yes Status: Acute Assessment and plan: Due to presence of Schatzki's ring and chronic gastritis. Continue PPI and Carafate. GI consult appreciated. We will also consult speech therapy to evaluate patient's swallow Qualifiers: Vomiting type: unspecified Vomiting Intractability: non-intractable Qualified Code(s): R11.2 - Nausea with vomiting, unspecified (6) Severe protein-calorie malnutrition Current Visit: Yes Status: Acute Assessment and plan: Nutrition consulted. Will change diet to regular diet. Monitor calorie intake. (7) Type 2 diabetes mellitus Current Visit: No Status: Chronic Assessment and plan: Blood sugars are well controlled Qualifiers: Diabetes mellitus complication status: with skin complications Diabetes mellitus complication detail: with other skin complication Diabetes mellitus superintendent terminal insulin use: without superintendent terminal use Qualified Code(s): E11.628 - Type 2 diabetes mellitus with other skin complications (8) DVT prophylaxis Current Visit: Yes Status: Acute Assessment and plan: Subcutaneous heparin (9) History of Parkinson's disease Current Visit: Yes Status: Chronic Assessment and plan: Continue carbidopa levodopa - Subjective Interval history: Patient complains of nausea. She had an episode of emesis earlier this morning but has since been doing well. She is sleeping most of the day but is able to keep her food down. Denies any chest pain. No abdominal discomfort at this time. - Constitutional Vitals: Temp Pulse Resp BP Pulse Ox 98.1 F 61 16 146/60 93 10/24/17 11:27 10/24/17 11:27 10/24/17 11:27 10/24/17 11:27 10/24/17 11:27 General appearance: Present: cooperative, A&O X 3, no acute distress, answers questions appropriately - Neck Neck exam general surgery: Present: supple, trachea midline. Absent: lymphadenopathy - Respiratory Respiratory exam: Present: CTAB. Absent: accessory muscle use, rales, rhonchi, wheezes - Cardiovascular Cardiovascular exam: Present: RRR, +S1, +S2. Absent: diastolic murmur, gallop, rubs, systolic murmur - GI/Abdominal GI/Abdominal exam: Present: normal bowel sounds, soft, no peritoneal signs. Absent: distended, tenderness - Extremities Exam Extremities exam: Present: warm, radial pulses palpable and symmetrical. Absent : calf tenderness, cyanotic, pedal edema - Neurological Exam Neurological exam: Present: alert, oriented X3, no focal deficits. Absent: facial droop, speech deficit - Skin Skin exam: Present: dry, intact Internal Medicine: Result - Labs CBC & Chem 7: 10/24/17 04:34 10/24/17 04:07 Labs: Short CBC 10/24/17 Range/Units 04:34 WBC 2.7 L D (4.3-11.1) K/mcL Hgb 9.7 L (11.5-15.4) g/dL Hct 28.5 L (35.3-44.9) % Plt Count 168 (140-400) K/mcL Neutrophils # 0.7 L (1.6-8.9) K/mcL BMP 10/24/17 04:07 Sodium 135 L Potassium 4.0 Chloride 108 Carbon Dioxide 17 L BUN 6 L Creatinine 0.63 Glucose 103 H Calcium 8.5 L Liver Function 10/24/17 Range/Units 04:07 Total Bilirubin 0.6 (0.2-1.2) mg/dL AST 9 (5-34) Units/L ALT < 6 (0-55) Units/L Alkaline Phosphatase 87 (38-126) Units/L Albumin 2.2 L (3.5-5.0) g/dL - ABG Interpretation ABG results: PT/INR, D-dimer PT 11.9 Seconds (9.4-12.1) 10/23/17 10:39 Consult Discharge Plan - Plan Referrals: Philippe Scott Jr, MD [Primary Care Provider] -
--- NOTE | 2017-10-24 16:46 | Oncology Inp Progress Note ---
Date of Encounter: 10/24/17 Time of Encounter: 16:44 (1) Chronic neutropenia Current Visit: No Status: Acute Assessment and plan: responding to GCSF. WBC count is quite inreased with improved ANC albeit the latter is still low. Continue for at least 1 more day. Fortunately, she does feel better. (2) Generalized weakness Current Visit: No Status: Acute Assessment and plan: N/V persist. Pt/OT consulted. (3) Nausea & vomiting Current Visit: No Status: Acute Assessment and plan: Unclear etiology. GI consulted. Her ronchus cough could be from aspiration with the frequent N/V. Perhaps, a swallow evaluation may be necessary for her to evaluate for possible dysphagia from neurologic dysfuntion to correlate with her Parkinson's. Qualifiers: Vomiting type: unspecified Vomiting Intractability: non-intractable Qualified Code(s): R11.2 - Nausea with vomiting, unspecified (4) Cough Current Visit: Yes Status: Acute Assessment and plan: slightly improved. Oncology: Subj Interval history: She is feeling much better today. However, she has not yet been out of bed. She feels that the cough is improved but that there is now dyspnea. Her nausea and AM vomiting spells persist. PT/OT have been consulted but she has not yet worked with them. her WBC count has improved nicely, however her ANC is still low at 700. She remains afebrile. - Constitutional Vitals: Vital Signs Temp Pulse Resp BP Pulse Ox 10/24/17 16:34 97.9 F 63 16 148/53 95 10/24/17 11:27 98.1 F 61 16 146/60 93 10/24/17 07:44 97.3 F L 65 16 169/70 96 10/24/17 03:41 98.7 F 70 16 163/70 98 10/23/17 23:17 98.7 F 65 17 155/69 95 10/23/17 19:10 98.3 F 74 17 148/78 97 Intake and Output 10/24/17 10/24/17 10/24/17 00:59 08:59 16:59 Intake Total 0 / 0 60 / 60 120 / 120 Output Total 600 / 600 750 / 750 Balance -600 / -600 60 / 60 -630 / -630 Intake: Oral 0 / 0 60 / 60 120 / 120 Output: Urine 600 / 600 750 / 750 Other: Meal Breakfast Lunch Percent of Meal Consumed 10% 60% Weight 60.056 kg Blood Glucose* 101 81 96 Patient Weight 10/25/17 00:59 Weight 60.056 kg General appearance: cooperative, no acute distress, no febrile - Eye Eye exam: Present: EOMI, normal appearance - Neck Neck exam: Present: full ROM. Absent: lymphadenopathy - Respiratory Respiratory exam: Present: rhonchi. Absent: CTAB - Cardiovascular Cardiovascular exam: Absent: diastolic murmur - GI/Abdominal GI/Abdominal exam: Present: soft. Absent: tenderness - Neurological Exam Neurological exam: Present: alert Additional comments: + resting tremor c/w parkinson's Oncology: Obj Data - Labs CBC & Chem 7: 10/24/17 04:34 10/24/17 04:07 Labs: Laboratory Results - last 24 hr 10/23/17 10/23/17 10/23/17 14:54 16:23 20:50 WBC RBC Hgb Hct MCV MCH MCHC RDW Plt Count MPV Seg Neutrophils % Band Neutrophils % Lymphocytes % Monocytes % Eosinophils % Neutrophils # Lymphocytes # Monocytes # Eosinophils # Nucleated RBCs/100 WBC Platelet Estimate Sodium Potassium Chloride Carbon Dioxide BUN Creatinine Est GFR ( Amer) Est GFR (Non-Af Amer) BUN/Creatinine Ratio Glucose POC Glucose 106 H 98 H 101 H Calculated Osmolality Calcium Phosphorus Magnesium Total Bilirubin AST ALT Alkaline Phosphatase Serum Total Protein Albumin Globulin Albumin/Globulin Ratio Specimen Rejected 10/24/17 10/24/17 10/24/17 04:07 04:07 04:34 WBC 2.7 L D RBC 3.15 L Hgb 9.7 L Hct 28.5 L MCV 90.5 MCH 30.8 MCHC 34.0 RDW 12.5 Plt Count 168 MPV 10.4 Seg Neutrophils % 22.0 Band Neutrophils % 4.0 Lymphocytes % 34.0 Monocytes % 24.0 Eosinophils % 16.0 Neutrophils # 0.7 L Lymphocytes # 0.9 Monocytes # 0.7 Eosinophils # 0.4 Nucleated RBCs/100 WBC 0.7 H Platelet Estimate Normal Sodium 135 L Potassium 4.0 Chloride 108 Carbon Dioxide 17 L BUN 6 L Creatinine 0.63 Est GFR ( Amer) > 60 Est GFR (Non-Af Amer) > 60 BUN/Creatinine Ratio 10 Glucose 103 H POC Glucose Calculated Osmolality 278 L Calcium 8.5 L Phosphorus 2.4 Magnesium 0.9 L Total Bilirubin 0.6 AST 9 ALT < 6 Alkaline Phosphatase 87 Serum Total Protein 6.1 Albumin 2.2 L Globulin 3.9 H Albumin/Globulin Ratio 0.6 L Specimen Rejected Clotted 10/24/17 07:42 WBC RBC Hgb Hct MCV MCH MCHC RDW Plt Count MPV Seg Neutrophils % Band Neutrophils % Lymphocytes % Monocytes % Eosinophils % Neutrophils # Lymphocytes # Monocytes # Eosinophils # Nucleated RBCs/100 WBC Platelet Estimate Sodium Potassium Chloride Carbon Dioxide BUN Creatinine Est GFR ( Amer) Est GFR (Non-Af Amer) BUN/Creatinine Ratio Glucose POC Glucose 81 Calculated Osmolality Calcium Phosphorus Magnesium Total Bilirubin AST ALT Alkaline Phosphatase Serum Total Protein Albumin Globulin Albumin/Globulin Ratio Specimen Rejected - ABG Interpretation ABG results: PT/INR, D-dimer PT 11.9 Seconds (9.4-12.1) 10/23/17 10:39 Consult Discharge Plan - Plan Referrals: Philippe Scott Jr, MD [Primary Care Provider] -
[2017-10-24] MEDS ORDERED: hydrALAZINE 10 MG TABLET PO PRN (23:51)
[2017-10-25] MEDS: *HR* Heparin 5,000 UNIT/ML VIAL SQ SCH ×2 (05:25→17:09)
[2017-10-25] MEDS: Aspirin 81 MG TAB.CHEW PO SCH (07:43)
[2017-10-25] MEDS: Carbidopa/Levodopa 25/100 TABLET PO SCH ×3 (07:43→20:25)
[2017-10-25] MEDS: Sucralfate 1 GM TABLET PO SCH ×4 (07:43→22:47)
[2017-10-25] MEDS: amLODIPine 5 MG TABLET PO SCH (07:43)
[2017-10-25] MEDS: FLUoxetine 20 MG CAPSULE PO SCH (07:43)
[2017-10-25] MEDS: Insulin LISPRO 300 UNITS/3 ML VIAL SQ SCH ×4 (07:46→20:26)
[2017-10-25] MEDS: Ondansetron 4 MG/2 ML VIAL IVP PRN (10:35)
[2017-10-25 13:52] LABS: Hematocrit 31.5 % (35.3-44.9); Hemoglobin 10.4 g/dL (11.5-15.4); Lymphocytes # 0.6 K/mcL (0.6-4.6); Mean Corpuscular Hemoglobin 30.1 pg (28.0-33.3); Mean Corpuscular Volume 91.3 fL (83.0-100.0); Mean Platelet Volume 10.4 fL (9.4-12.4); Platelet Count 170 K/mcL (140-400); Red Blood Count 3.45 M/mcL (3.82-4.97); Red Cell Distribution Width 12.3 % (11.5-14.5)
--- NOTE | 2017-10-25 14:46 | Internal Med Progress Note ---
Date of Encounter: 10/25/17 Time of Encounter: 12:20 - Assessment and plan (1) Leukopenia Current Visit: Yes Status: Acute Assessment and plan: WBC count 2.1 today. Receiving Neupogen. Qualifiers: Leukopenia type: neutropenia Neutropenia type: unspecified Qualified Code (s): D70.9 - Neutropenia, unspecified (2) Generalized weakness Current Visit: Yes Status: Acute Assessment and plan: Awaiting placement to skilled rehabilitation. 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 Nutrition following (7) Type 2 diabetes mellitus Current Visit: Yes Status: Chronic Assessment and plan: Blood sugars variable as patient's diet has not been consistent. For now, we will Continue current sliding scale coverage and adjust according to her blood sugars Qualifiers: Diabetes mellitus complication status: with skin complications Diabetes mellitus complication detail: with other skin complication Diabetes mellitus middle or intermediate school principal insulin use: without usp use Qualified Code(s): E11.628 - Type 2 diabetes mellitus with other skin complications (8) DVT prophylaxis Current Visit: Yes Status: Acute Assessment and plan: On subcutaneous heparin (9) History of Parkinson's disease Current Visit: Yes Status: Chronic - Subjective Interval history: Patient continues to have nausea but is able to keep her food down. No fever or chills reported. No chest pain or abdominal pain. No episodes of emesis - Constitutional Vitals: Temp Pulse Resp BP Pulse Ox 97.4 F L 61 14 145/64 98 10/25/17 11:11 10/25/17 11:39 10/25/17 11:39 10/25/17 11:39 10/25/17 11:39 General appearance: Present: cooperative, A&O X 3, no acute distress, answers questions appropriately - Neck Neck exam general surgery: Present: supple, trachea midline. Absent: lymphadenopathy - Respiratory Respiratory exam: Present: CTAB. Absent: accessory muscle use, rales, rhonchi, wheezes - Cardiovascular Cardiovascular exam: Present: RRR, +S1, +S2. Absent: diastolic murmur, gallop, rubs, systolic murmur - GI/Abdominal GI/Abdominal exam: Present: normal bowel sounds, soft, no peritoneal signs. Absent: distended, tenderness - Extremities Exam Extremities exam: Present: pedal edema, warm, radial pulses palpable and symmetrical. Absent: calf tenderness, cyanotic - Neurological Exam Neurological exam: Present: alert, oriented X3, no focal deficits. Absent: facial droop, speech deficit Internal Medicine: Result - Labs CBC & Chem 7: 10/25/17 13:33 10/24/17 04:07 Labs: Short CBC 10/25/17 Range/Units 13:33 WBC 2.1 L (4.3-11.1) K/mcL Hgb 10.4 L (11.5-15.4) g/dL Hct 31.5 L (35.3-44.9) % Plt Count 170 (140-400) K/mcL - ABG Interpretation ABG results: PT/INR, D-dimer PT 11.9 Seconds (9.4-12.1) 10/23/17 10:39 Consult Discharge Plan - Plan Referrals: Philippe Scott Jr, MD [Primary Care Provider] - (Patient will follow up with F PCP )
[2017-10-25 14:47] LABS: Eosinophils # 0.4 K/mcL (0.0-0.6); Monocytes # 0.3 K/mcL (0.0-1.3); Neutrophils # 0.8 K/mcL (1.6-8.9)
[2017-10-25 14:48] LABS: Platelet Estimate Normal (Normal); Reactive Lymphocytes Present (Not Present)
[2017-10-26] MEDS: *HR* Heparin 5,000 UNIT/ML VIAL SQ SCH (05:55)
[2017-10-26] MEDS: 0.9 % Sodium Chloride 1,000 ML IVC SCH (07:05)
[2017-10-26] MEDS: Ondansetron 4 MG/2 ML VIAL IVP PRN (08:34)
[2017-10-26 08:53] LABS: Hematocrit 29.9 % (35.3-44.9); Hemoglobin 9.8 g/dL (11.5-15.4); Mean Corpuscular HGB Conc 32.8 g/dL (31.6-35.5); Mean Corpuscular Hemoglobin 29.6 pg (28.0-33.3); Mean Corpuscular Volume 90.3 fL (83.0-100.0); Mean Platelet Volume 10.4 fL (9.4-12.4); Nucleated Red Blood Cells 0.9 /100 WBC (0); Platelet Count 173 K/mcL (140-400); Red Blood Count 3.31 M/mcL (3.82-4.97); Red Cell Distribution Width 12.4 % (11.5-14.5)
[2017-10-26 09:16] LABS: Eosinophils # 0.4 K/mcL (0.0-0.6); Lymphocytes # 0.9 K/mcL (0.6-4.6); Monocytes # 0.2 K/mcL (0.0-1.3); Neutrophils # 0.7 K/mcL (1.6-8.9)
[2017-10-26 09:17] LABS: Dohle Bodies Present (Not Present); Platelet Estimate Normal (Normal); Toxic Granulation Present (Not Present)
[2017-10-26] MEDS ORDERED: Saline Nasal Spray 44 ML BOTTLE NS PRN (09:55)
[2017-10-26] MEDS ORDERED: *HR* Promethazine 25 MG/ML VIAL IVP ONE (09:55)
[2017-10-26 11:17] LABS: BUN/Creatinine Ratio 7 (6-26); Blood Urea Nitrogen 5 mg/dL (7-20); Calcium 9.4 mg/dL (8.6-10.8); Carbon Dioxide 26 mEq/L (19-29); Chloride 103 mEq/L (98-109); Glucose 126 mg/dL (70-99); Osmolality,Calculated 281 (280-300); Potassium 3.5 mEq/L (3.5-4.5); Sodium 136 mEq/L (136-145); eGFR For African Americans > 60 (> 60); eGFR For Non-African Americans > 60 (> 60)
[2017-10-26] MEDS: Sucralfate 1 GM TABLET PO SCH ×2 (11:18→11:52)
[2017-10-26] MEDS: Insulin LISPRO 300 UNITS/3 ML VIAL SQ SCH ×2 (11:18→11:53)
[2017-10-26] MEDS: amLODIPine 5 MG TABLET PO SCH (11:19)
[2017-10-26] MEDS: FLUoxetine 20 MG CAPSULE PO SCH (11:19)
[2017-10-26] MEDS: Carbidopa/Levodopa 25/100 TABLET PO SCH ×2 (11:19→15:27)
[2017-10-26] MEDS: Aspirin 81 MG TAB.CHEW PO SCH (11:19)
[2017-10-26 11:21] VITALS: BP 165/81
--- NOTE | 2017-10-26 14:42 | Discharge Summary ---
Date of Encounter: 10/26/17 Time of Encounter: 14:39 - Discharge Diagnosis (1) Generalized weakness Priority: Primary Status: Acute (2) Nausea & vomiting Priority: Secondary Status: Acute Qualifiers: Vomiting type: unspecified Vomiting Intractability: non-intractable Qualified Code(s): R11.2 - Nausea with vomiting, unspecified (3) Leukopenia Priority: Secondary Status: Acute Qualifiers: Leukopenia type: neutropenia Neutropenia type: unspecified Qualified Code (s): D70.9 - Neutropenia, unspecified (4) Frail elderly Priority: Secondary Status: Chronic (5) History of Clostridium difficile infection Priority: Secondary Status: Resolved (6) Severe protein-calorie malnutrition Priority: Secondary Status: Chronic (7) Type 2 diabetes mellitus Priority: Secondary Status: Chronic Qualifiers: Diabetes mellitus complication status: with skin complications Diabetes mellitus complication detail: with other skin complication Diabetes mellitus half-way insulin use: without half-way use Qualified Code(s): E11.628 - Type 2 diabetes mellitus with other skin complications (8) DVT prophylaxis Priority: Secondary Status: Acute (9) History of Parkinson's disease Priority: Secondary Status: Chronic - Discharge Medications Prescriptions: Promethazine Syrup [Phenergan Syrup] 12.5 mg PO Q8HR PRN #250 mls PRN Reason: Nausea/ vomiting Sucralfate [Carafate] 1 gm PO QIDAC #120 tablet Home Medications: Carbidopa/Levodopa 25/100 [Sinemet 25/100] 1 each PO TID 07/20/17 [History] Amlodipine Besylate 10 mg PO DAILY 10/02/17 [History] Aspirin 81 mg PO DAILY 10/02/17 [History] FLUoxetine HCl [Fluoxetine HCl] 40 mg PO DAILY 10/02/17 [History] Glimepiride [Amaryl] 4 mg PO DAILY 10/02/17 [History] HYDROcodone/Acet 5/325 mg [[place] 5-325 mg] 1 tab PO Q4H PRN #10 tab 10/02/17 [Rx ] Metformin HCl [Glucophage] 1,000 mg PO BID 10/02/17 [History] Metoprolol [Lopressor] 25 mg PO BID 10/02/17 [History] Omeprazole [PriLOSEC] 20 mg PO DAILY 10/02/17 [History] Potassium Chloride [K-Tab ER] 20 meq PO DAILY 10/02/17 [History] Promethazine Syrup [Phenergan Syrup] 12.5 mg PO Q8HR PRN #250 mls 10/26/17 [Rx] Sucralfate [Carafate] 1 gm PO QIDAC #120 tablet 10/26/17 [Rx] Allergies/Adverse Reactions: 3 Allergy/AdvReac Type Severity Reaction Status Date / Time RODGER Inhibitors AdvReac See Verified 10/23/17 13:06 Comments ampicillin AdvReac See Verified 10/23/17 13:06 Comments lisinopril AdvReac See Verified 10/23/17 13:06 Comments Tetracycline AdvReac See Verified 10/23/17 13:06 Comments Date of admission: 10/23/17 13:43 Primary care physician: Philippe Scott Jr, MD Consults: 10/23/17 13:45 Consult to Nutrition [CONS] Routine Comment: Consulting Provider: NUTRITION Reason for Dietary Consult: PO Supplementation Consult to Occupational Therapy [CONS] Routine Comment: Evaluate, develop and implement POC Reason for Consult: Deconditioned Consult to Oncology [CONS] Routine Consulting Provider: Oncology [facility] Reason for Consult: chronic neutropenia Time Notified: 13:46 Call Completed: Yes Consult to Physical Therapy [CONS] Routine Comment: Evaluate, develop and implement POC Reason for Consult: Deconditioned; will need return to [facility] for rehabilitation Consult to [employer] [CONS] Routine Reason for SW Consult: return to ECF 10/23/17 14:38 Consult to Gastroenterology [CONS] Routine Consulting Provider: Gastroenterology [place] Reason for Consult: N/V x1 week, has Schatzki ring, was recently seen by gastro Time Notified: 14:39 Call Completed: Yes 10/24/17 17:48 Consult to Speech Therapy [CONS] Routine Comment: Evaluate, develop and implement POC Reason for Consult: Nausea/ vomiting; concern for aspiration risk Call Completed: No Discharging clinician: Fermin Girard Anticipated date of discharge: 10/26/17 - Patient Status Disposition: Home Health Service Condition: Fair Functional capacity at discharge: uses cane/walker Overall status at discharge: patient is progressing back to baseline - Discharge Instructions Instructions: Sucralfate (By mouth), Promethazine (By mouth), Diabetes Mellitus Type 2 in Adults (DC), Chronic Hypertension (DC) Follow Up With: Philippe Scott Jr, MD [Primary Care Provider] - 10/29/17 12:00 pm () Additional Instructions: Follow-up with oncology in 1-2 weeks - Diet and Activity Activity: as per physical therapy Diet: diabetic diet, low fat, low cholesterol, low salt diet Hospital course: Ms. Hardy is a 77 year old female patient with a history of chronic neutropenia, esophageal rings, chronic gastritis, Parkinson's disease and prior colostomy who was residing at a residential who was brought in by family with complaints of failure to thrive with intractable nausea and vomiting. She also had neutropenia and was recommended Neupogen by her oncologist. She had been discharged from Hospital recently following a long stay with multiple medical comorbidities and during that time she had developed C. difficile colitis for which she was treated with Flagyl and vancomycin. She has not had any further episodes of diarrhea. On arrival here, her symptoms began to improve. She continued to have nausea but did not have intractable episodes of vomiting. She was treated symptomatically and has been able to tolerate oral diet well. Speech therapy has evaluated the patient and recommended no further changes to her diet. She still continued to have nausea and may continue to have episodes of vomiting and she has Schatzki's rings in her esophagus and chronic gastritis. She is advised to continue taking Carafate and Prilosec. She also responded well to Phenergan and will be prescribed this medication to use sparingly for her episodes of nausea as she also has Parkinson's disease. Patient is clinically stable for discharge. We did recommend that the patient go back to rehabilitation but family wishes to take her home. Home health referral has been made for the patient. She was also given Neupogen for her neutropenia and her WBC count has improved from 1.4-2.2. This can be followed further with hematology/oncology. If patient develops similar episodes and is no longer able to keep her food down, she may be considered for placement of PEG tube. I have Discussed this with family and they are in agreement with this plan. - Time Spent with Patient Total time spent providing and/or coordinating discharge services: Greater than 30 minutes (35 min) - Constitutional Vitals: Temp Pulse Resp BP Pulse Ox 98.5 F 68 18 165/81 99 10/26/17 11:19 10/26/17 11:19 10/26/17 11:19 10/26/17 11:19 10/26/17 11:19 General appearance: Present: cooperative, A&O X 3, no acute distress, answers questions appropriately - Neck Neck exam general surgery: Present: supple, trachea midline. Absent: lymphadenopathy - Respiratory Respiratory exam: Present: CTAB. Absent: accessory muscle use, rales, rhonchi, wheezes - Cardiovascular Cardiovascular exam: Present: RRR, +S1, +S2. Absent: diastolic murmur, gallop, rubs, systolic murmur - GI/Abdominal GI/Abdominal exam: Present: normal bowel sounds, soft, no peritoneal signs. Absent: distended, tenderness - Extremities Exam Extremities exam: Present: warm, radial pulses palpable and symmetrical. Absent : calf tenderness, cyanotic, pedal edema
--- NOTE | 2017-10-26 14:52 | Physician Discharge Referral ---
Home Health/Hosp Referral Info Transfer to: Home Health Provider in Charge Post Discharge: PCP - Diagnosis (1) Generalized weakness Priority: Primary Status: Acute (2) Nausea & vomiting Priority: Secondary Status: Acute (3) Leukopenia Priority: Secondary Status: Acute (4) Frail elderly Priority: Secondary Status: Chronic (5) History of Clostridium difficile infection Priority: Secondary Status: Resolved (6) Severe protein-calorie malnutrition Priority: Secondary Status: Chronic (7) Type 2 diabetes mellitus Priority: Secondary Status: Chronic (8) DVT prophylaxis Priority: Secondary Status: Acute (9) History of Parkinson's disease Priority: Secondary Status: Chronic - Respiratory Orders Smoking Cessation: Smoking cessation has been advised. For more information, call the [place] Tobacco Quit Line at 6-750-UHTT-NOW. - Diet/Nutrition Diet/Nutrition Orders: Cardiac, No Concentrated Sweets (and diabetic) - Activity Activity Orders: Walker - Services Needed Following services are medically necessary services: Nursing, Home Health Aide, Physical Therapy, Occupational Therapy - Transfer Medications Prescriptions: Promethazine Syrup [Phenergan Syrup] 12.5 mg PO Q8HR PRN #250 mls PRN Reason: Nausea/ vomiting Sucralfate [Carafate] 1 gm PO QIDAC #120 tablet Home Medications: Carbidopa/Levodopa 25/100 [Sinemet 25/100] 1 each PO TID 07/20/17 [History] Amlodipine Besylate 10 mg PO DAILY 10/02/17 [History] Aspirin 81 mg PO DAILY 10/02/17 [History] FLUoxetine HCl [Fluoxetine HCl] 40 mg PO DAILY 10/02/17 [History] Glimepiride [Amaryl] 4 mg PO DAILY 10/02/17 [History] HYDROcodone/Acet 5/325 mg [[place] 5-325 mg] 1 tab PO Q4H PRN #10 tab 10/02/17 [Rx ] Metformin HCl [Glucophage] 1,000 mg PO BID 10/02/17 [History] Metoprolol [Lopressor] 25 mg PO BID 10/02/17 [History] Omeprazole [PriLOSEC] 20 mg PO DAILY 10/02/17 [History] Potassium Chloride [K-Tab ER] 20 meq PO DAILY 10/02/17 [History] Promethazine Syrup [Phenergan Syrup] 12.5 mg PO Q8HR PRN #250 mls 10/26/17 [Rx] Sucralfate [Carafate] 1 gm PO QIDAC #120 tablet 10/26/17 [Rx] Allergies/Adverse Reactions: 3 Allergy/AdvReac Type Severity Reaction Status Date / Time ROGDER Inhibitors AdvReac See Verified 10/23/17 13:06 Comments ampicillin AdvReac See Verified 10/23/17 13:06 Comments lisinopril AdvReac See Verified 10/23/17 13:06 Comments Tetracycline AdvReac See Verified 10/23/17 13:06 Comments Certification: Further, I certify that my clinical findings support that this patient is homebound (i.e. absences from home require considerable and taxing effort and are for medical reasons or evangelical services or infrequently or short duration when for other reasons) because: Homebound Reason: Patient requires assistance of a person or device to safely leave home Attestation: My signature below is to certify that this patient is under my care and that I, or nurse practitioner, or a physician's lead assistant manager working with me, has a face-to -face encounter with this patient.
[2017-10-29 07:44] LABS: Immunoglobulin A 380 mg/dL (68-408); Immunoglobulin G 976 mg/dL (768-1632); Immunoglobulin M 58 mg/dL (35-263)
== END 2017-10-26 16:25 | disposition home health service (06) ==
LOC: 2ANU 10:12 → EMEROO 10:12 → 2ANU 13:57 → SUATTDRO 14:29
PROVIDERS: ADMIT Internal Medicine; ATTEND Internal Medicine

== ENCOUNTER 2018-05-13 14:34 | Observation (INO) ==
[2018-05-13] MEDS ORDERED: 0.9 % Sodium Chloride 1,000 ML IVC ONE (16:24)
[2018-05-13] MEDS ORDERED: Ondansetron 4 MG/2 ML VIAL IVP ONE (16:24)
--- NOTE | 2018-05-13 16:29 | Emergency Department Note ---
Disposition Clinical Impression: Generalized weakness Nausea & vomiting Qualifiers: Vomiting type: unspecified Vomiting Intractability: intractable Qualified Code( s): R11.2 - Nausea with vomiting, unspecified Disposition: Admitted As Inpatient Condition: Undetermined Referrals: Philippe Scott Jr, MD [Primary Care Provider] - Forms: ED Satisfaction Letter Time of Disposition: 18:44 Nausea/Vomiting/Diarrhea HPI - General Chief complaint: ED Nausea/Vomiting/Diarrhea Stated complaint: "N/V/Abd Pain" Time Seen by Provider: 05/13/18 16:18 Source: patient Mode of arrival: ambulatory Limitations: no limitations Nursing Notes Reviewed: Yes Vital Signs Reviewed: Yes - History of Present Illness HPI Narrative: 77-year-old female with history of colostomy associated with perforated diverticuli performed by Dr. jan amezquita at [facility], arrives to the emergency Department roughly 1 day of nausea, vomiting, abdominal pain. The patient denies any previous abdominal pain like this in the past. She started vomiting roughly 4 hours prior to arrival. The patient states it is nonbilious and nonbloody vomit. Patient denies any other complaints at this time other than feeling generally weak. She states that she never had a history of bowel instruction and states that she has had decreased stool output from her colostomy today. She denies any other complaints but appears very uncomfortable and mildly diaphoretic on examination in the room. - Related Data Home Medications Medication Instructions Recorded Confirmed Carbidopa/Levodopa 25/100 [Sinemet 1 each PO TID 07/20/17 10/23/17 25/100] Amlodipine Besylate 10 mg PO DAILY 10/02/17 10/23/17 Aspirin 81 mg PO DAILY 10/02/17 10/23/17 FLUoxetine HCl [Fluoxetine HCl] 40 mg PO DAILY 10/02/17 10/23/17 Glimepiride [Amaryl] 4 mg PO DAILY 10/02/17 10/23/17 Metformin HCl [Glucophage] 1,000 mg PO BID 10/02/17 10/23/17 Metoprolol [Lopressor] 25 mg PO BID 10/02/17 10/23/17 Omeprazole [PriLOSEC] 20 mg PO DAILY 10/02/17 10/23/17 Potassium Chloride [K-Tab ER] 20 meq PO DAILY 11/21/17 12/12/17 Previous Rx's Medication Instructions Recorded HYDROcodone/Acet 5/325 mg [[place] 1 tab PO Q4H PRN #10 tab 10/02/17 5-325 mg] Promethazine Syrup [Phenergan 12.5 mg PO Q8HR PRN #250 mls 10/26/17 Syrup] Sucralfate [Carafate] 1 gm PO QIDAC #120 tablet 10/26/17 Allergies Allergy/AdvReac Type Severity Reaction Status Date / Time RODGER Inhibitors AdvReac See Verified 05/13/18 16:58 Comments ampicillin AdvReac See Verified 05/13/18 16:58 Comments lisinopril AdvReac See Verified 05/13/18 16:58 Comments Tetracycline AdvReac See Verified 05/13/18 16:58 Comments All systems ED: reviewed and negative except as stated. Constitutional: Denies: fever, chills, weakness ENT ED: Denies: ear pain Cardiovascular: Denies: chest pain Respiratory: Denies: dyspnea Gastrointestinal: Reports: abdominal pain, nausea, vomiting. Denies: diarrhea, constipation, hematemesis, melena, hematochezia Genitourinary: Denies: urgency, dysuria Musculoskeletal: Denies: back pain Integumentary: Denies: rash Neurological: Denies: headache Past Medical History - Past Medical History Attestation: Yes The following information was validated with the patient. 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 - Social History Smoking Status: Never smoker Smokeless Tobacco Status: No Alcohol use: Reports: none Drug use: Reports: none Physical Exam - General Limitations: no limitations General appearance: alert, in no apparent distress - Head Head exam: atraumatic, normocephalic, normal inspection - Eye Eye exam: Present: normal appearance, PERRL, EOMI - ENT ENT exam: normal exam, normal oropharynx, mucous membranes moist - Neck Neck exam: Present: normal inspection, full ROM, trachea midline - Chest Chest inspection: Present: normal inspection, symmetric chest wall rise - Respiratory Respiratory exam: Present: normal lung sounds bilaterally - Cardiovascular Cardiovascular exam: Present: regular rate, normal rhythm, normal heart sounds - Abdominal Exam Abdominal exam: Present: soft, tenderness (Diffuse), distention, scar ( Colostomy in plac with no stool in ostomy bag). Absent: guarding, rebound, rigidity - Extremities Exam Extremities exam: Present: normal inspection, full ROM. Absent: tenderness, pedal edema - Neurological Exam Neurological exam: Present: alert, oriented X3 - Skin Skin exam: Present: warm, dry, intact, pallor Course Vital Signs Temperature 98.1 F 05/13/18 14:54 Pulse Rate 86 05/13/18 14:54 Respiratory Rate 22 05/13/18 14:54 Blood Pressure 149/76 05/13/18 14:54 O2 Sat by Pulse Oximetry 97 05/13/18 14:54 Temperature 98.1 F 05/13/18 17:01 Pulse Rate 69 05/13/18 17:01 Respiratory Rate 20 05/13/18 17:01 Blood Pressure 148/68 05/13/18 17:01 O2 Sat by Pulse Oximetry 99 05/13/18 17:01 Oxygen Delivery Oxygen Delivery Room Air Nausea/Vomiting/Diarrhea - MDM Narrative Medical decision making narrative: Workup in the emergency department demonstrates no acute process to account for patient's symptoms, but the patient still remains very weak. The patient is unsure if she can manage going home at this time. Given the patient's continued nausea without vomiting as well as generalized weakness with only her to care for her home, we will admit the patient to the hospital at this time. Patient made aware and agree to plan. No further questions or concerns noted. Patient does have an absolute neutrophil count of 1065. Accepted by Dr. Faustin. - Lab Data Lab results reviewed: Yes I reviewed the patient's lab results. Result diagrams: 05/13/18 16:54 05/13/18 17:50 Lab Results 05/13/18 05/13/18 05/13/18 Range/Units 16:24 16:54 16:54 WBC 2.1 L (4.3-11.1) K/mcL RBC 4.23 (3.82-4.97) M/mcL Hgb 13.5 (11.5-15.4) g/dL Hct 40.1 (35.3-44.9) % MCV 94.8 (83.0-100.0) fL MCH 31.9 (28.0-33.3) pg MCHC 33.7 (31.6-35.5) g/dL RDW 13.3 (11.5-14.5) % Plt Count 269 (140-400) K/mcL MPV 10.0 (9.4-12.4) fL Immature Gran % 0.5 (0-4) % Seg Neutrophils % 50.2 % Lymphocytes % 17.9 % Monocytes % 20.8 % Eosinophils % 9.2 % Basophils % 1.4 % Neutrophils # 1.1 L (1.6-8.9) K/mcL Lymphocytes # 0.4 L (0.6-4.6) K/mcL Monocytes # 0.4 (0.0-1.3) K/mcL Eosinophils # 0.2 (0.0-0.6) K/mcL Basophils # 0.0 (0.0-0.2) K/mcL Platelet Estimate Normal (Normal) Sodium Cancelled Potassium Cancelled Chloride Cancelled Carbon Dioxide Cancelled BUN Cancelled Creatinine Cancelled Est GFR ( Amer) Cancelled Est GFR (Non-Af Amer) Cancelled BUN/Creatinine Ratio Cancelled Glucose Cancelled POC Glucose 143 H (70-99) mg/dL Calculated Osmolality Cancelled Calcium Cancelled Total Bilirubin Cancelled AST Cancelled ALT Cancelled Alkaline Phosphatase Cancelled Troponin I < 0.03 (< 0.04) ng/mL Serum Total Protein Cancelled Albumin Cancelled Globulin Cancelled Albumin/Globulin Ratio Cancelled Urine Color (Yellow) Urine Clarity (Clear) Urine pH (5.0-8.0) pH Units Ur Specific [place] (1.010-1.025) Urine Protein (Neg-Trace) mg/dL Urine Glucose (UA) (Normal) mg/dL Urine Ketones (Negative) mg/dL Urine Blood (Negative) Urine Nitrite (Negative) Urine Bilirubin (Negative) Urine Urobilinogen (Normal) mg/dL Ur Leukocyte Esterase (Negative) Urine Microscopic RBC (0-3) per hpf Urine Microscopic WBC (0-3) per hpf Ur Squamous Epith Cells (None-Few) per lpf Urine Bacteria (None-Few) per hpf Hyaline Casts (None-Few) per lpf Ur Culture Indicated? (NO) Specimen Rejected 0705/13/18 05/13/18 Range/Units 16:54 17:50 18:03 WBC (4.3-11.1) K/mcL RBC (3.82-4.97) M/mcL Hgb (11.5-15.4) g/dL Hct (35.3-44.9) % MCV (83.0-100.0) fL MCH (28.0-33.3) pg MCHC (31.6-35.5) g/dL RDW (11.5-14.5) % Plt Count (140-400) K/mcL MPV (9.4-12.4) fL Immature Gran % (0-4) % Seg Neutrophils % % Lymphocytes % % Monocytes % % Eosinophils % % Basophils % % Neutrophils # (1.6-8.9) K/mcL Lymphocytes # (0.6-4.6) K/mcL Monocytes # (0.0-1.3) K/mcL Eosinophils # (0.0-0.6) K/mcL Basophils # (0.0-0.2) K/mcL Platelet Estimate (Normal) Sodium 136 Potassium 4.3 Chloride 104 Carbon Dioxide 22 L BUN 22 Creatinine 0.76 Est GFR ( Amer) > 60 Est GFR (Non-Af Amer) > 60 BUN/Creatinine Ratio 29 H Glucose 118 H POC Glucose (70-99) mg/dL Calculated Osmolality 286 Calcium 10.2 Total Bilirubin 0.4 AST 13 ALT 12 Alkaline Phosphatase 82 Troponin I (< 0.04) ng/mL Serum Total Protein 7.0 Albumin 3.6 Globulin 3.4 Albumin/Globulin Ratio 1.1 Urine Color Yellow (Yellow) Urine Clarity Cloudy A (Clear) Urine pH 6.0 (5.0-8.0) pH Units Ur Specific [place] 1.023 (1.010-1.025) Urine Protein 100 H (Neg-Trace) mg/dL Urine Glucose (UA) Normal (Normal) mg/dL Urine Ketones Negative (Negative) mg/dL Urine Blood Moderate H (Negative) Urine Nitrite Negative (Negative) Urine Bilirubin Negative (Negative) Urine Urobilinogen Normal (Normal) mg/dL Ur Leukocyte Esterase Moderate H (Negative) Urine Microscopic RBC 5-15 H (0-3) per hpf Urine Microscopic WBC 50-100 H (0-3) per hpf Ur Squamous Epith Cells Many H (None-Few) per lpf Urine Bacteria Moderate H (None-Few) per hpf Hyaline Casts Few (None-Few) per lpf Ur Culture Indicated? NO. A (NO) Specimen Rejected Hemolyzed - Radiology Data Radiology results reviewed: Yes I reviewed the patient's radiology results. Abdomen/Pelvis CT 05/13/18 16:24 IMPRESSION: 1. Non obstructing right renal calculi including 1.6 cm calculus in the right renal pelvis. No left renal, right or left ureteral or intravesicular calculi. 2. 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 3. Similar appearance of contour abnormality of the lower pole of the left kidney, unchanged dating back to 08/21/2014. Nonemergent renal ultrasound could be considered for further evaluation, to assess the underlying renal parenchyma, as indicated. 4. Scattered diverticulosis without CT evidence of diverticulitis. D/ / Patrick Aceves / Patrick Aceves Interpreting Provider: Patrick Aceves - EKG Data EKG attestation: Yes I reviewed and interpreted this EKG. EKG results narrative: Heart rate 69 beats for minute. Normal sinus rhythm. No ST elevation or ST depression noted. No acute changes noted.
[2018-05-13 17:10] LABS: Mean Corpuscular HGB Conc 33.7 g/dL (31.6-35.5); Red Cell Distribution Width 13.3 % (11.5-14.5)
[2018-05-13 17:12] LABS: Basophils % 1.4 %; Eosinophils # 0.2 K/mcL (0.0-0.6); Eosinophils % 9.2 %; Hematocrit 40.1 % (35.3-44.9); Hemoglobin 13.5 g/dL (11.5-15.4); Immature Granulocytes % 0.5 % (0-4); Lymphocytes # 0.4 K/mcL (0.6-4.6); Lymphocytes % 17.9 %; Mean Corpuscular Hemoglobin 31.9 pg (28.0-33.3); Mean Corpuscular Volume 94.8 fL (83.0-100.0); Monocytes # 0.4 K/mcL (0.0-1.3); Monocytes % 20.8 %; Platelet Count 269 K/mcL (140-400); Red Blood Count 4.23 M/mcL (3.82-4.97); Segmented Neutrophils % 50.2 %
[2018-05-13 17:16] LABS: Neutrophils # 1.1 K/mcL (1.6-8.9)
--- NOTE | 2018-05-13 17:32 | Emergency Department Note ---
Disposition Clinical Impression: Generalized weakness Nausea & vomiting Qualifiers: Vomiting type: unspecified Vomiting Intractability: intractable Qualified Code( s): R11.2 - Nausea with vomiting, unspecified Disposition: Admitted As Inpatient Condition: Undetermined General Adult HPI - General Chief complaint: ED Abdominal Pain Stated complaint: "N/V/Abd Pain" Time Seen by Provider: 05/13/18 16:18 Source: patient Mode of arrival: ambulatory Limitations: no limitations - History of Present Illness Pain Scale: 9 - Related Data Home Medications Medication Instructions Recorded Confirmed Carbidopa/Levodopa 25/100 [Sinemet 1 each PO TID 07/20/17 10/23/17 25/100] Amlodipine Besylate 10 mg PO DAILY 10/02/17 10/23/17 Aspirin 81 mg PO DAILY 10/02/17 10/23/17 FLUoxetine HCl [Fluoxetine HCl] 40 mg PO DAILY 10/02/17 10/23/17 Glimepiride [Amaryl] 4 mg PO DAILY 10/02/17 10/23/17 Metformin HCl [Glucophage] 1,000 mg PO BID 10/02/17 10/23/17 Metoprolol [Lopressor] 25 mg PO BID 10/02/17 10/23/17 Omeprazole [PriLOSEC] 20 mg PO DAILY 10/02/17 10/23/17 Potassium Chloride [K-Tab ER] 20 meq PO DAILY 10/02/17 10/23/17 Previous Rx's Medication Instructions Recorded HYDROcodone/Acet 5/325 mg [[place] 1 tab PO Q4H PRN #10 tab 10/02/17 5-325 mg] Promethazine Syrup [Phenergan 12.5 mg PO Q8HR PRN #250 mls 10/26/17 Syrup] Sucralfate [Carafate] 1 gm PO QIDAC #120 tablet 10/26/17 Allergies Allergy/AdvReac Type Severity Reaction Status Date / Time RODGER Inhibitors AdvReac See Verified 05/13/18 16:58 Comments ampicillin AdvReac See Verified 05/13/18 16:58 Comments lisinopril AdvReac See Verified 05/13/18 16:58 Comments Tetracycline AdvReac See Verified 05/13/18 16:58 Comments Constitutional: Denies: fever, chills, weakness ENT ED: Denies: ear pain Cardiovascular: Denies: chest pain Respiratory: Denies: dyspnea Gastrointestinal: Reports: abdominal pain, nausea, vomiting. Denies: diarrhea, constipation, hematemesis, melena, hematochezia Genitourinary: Denies: urgency, dysuria Musculoskeletal: Denies: back pain Integumentary: Denies: rash Neurological: Denies: headache Past Medical History - Past Medical History Medical history: Reports: arthritis, diabetes, GERD, hypertension, kidney stones , osteoporosis, RA, thyroid disease, valvular heart disease, other Surgical history: Reports: cataract, cholecystectomy, colectomy, colostomy, herniorrhaphy, knee replacement, ureteral stent Psychiatric history: Reports: anxiety, depression MANAGER CARGO history: Reports: no MANAGER CARGO history - Social History Smoking Status: Never smoker Smokeless Tobacco Status: No Alcohol use: Reports: none Drug use: Reports: none Physical Exam - General Limitations: no limitations General appearance: alert, in no apparent distress Course Vital Signs Temperature 98.1 F 05/13/18 14:54 Pulse Rate 86 05/13/18 14:54 Respiratory Rate 22 05/13/18 14:54 Blood Pressure 149/76 05/13/18 14:54 O2 Sat by Pulse Oximetry 97 05/13/18 14:54 Temperature 98.6 F 05/13/18 21:18 Pulse Rate 71 05/13/18 21:18 Respiratory Rate 16 05/13/18 21:18 Blood Pressure 147/76 05/13/18 21:18 O2 Sat by Pulse Oximetry 96 05/13/18 21:18 Oxygen Delivery Oxygen Delivery Room Air Medical Decision Making - Lab Data Result diagrams: 05/13/18 16:54 05/13/18 17:50 Lab Results 05/13/18 05/13/18 05/13/18 Range/Units 16:24 16:54 16:54 WBC 2.1 L (4.3-11.1) K/mcL RBC 4.23 (3.82-4.97) M/mcL Hgb 13.5 (11.5-15.4) g/dL Hct 40.1 (35.3-44.9) % MCV 94.8 (83.0-100.0) fL MCH 31.9 (28.0-33.3) pg MCHC 33.7 (31.6-35.5) g/dL RDW 13.3 (11.5-14.5) % Plt Count 269 (140-400) K/mcL MPV 10.0 (9.4-12.4) fL Immature Gran % 0.5 (0-4) % Seg Neutrophils % 50.2 % Lymphocytes % 17.9 % Monocytes % 20.8 % Eosinophils % 9.2 % Basophils % 1.4 % Neutrophils # 1.1 L (1.6-8.9) K/mcL Lymphocytes # 0.4 L (0.6-4.6) K/mcL Monocytes # 0.4 (0.0-1.3) K/mcL Eosinophils # 0.2 (0.0-0.6) K/mcL Basophils # 0.0 (0.0-0.2) K/mcL Platelet Estimate Normal (Normal) Sodium Cancelled Potassium Cancelled Chloride Cancelled Carbon Dioxide Cancelled BUN Cancelled Creatinine Cancelled Est GFR ( Amer) Cancelled Est GFR (Non-Af Amer) Cancelled BUN/Creatinine Ratio Cancelled Glucose Cancelled POC Glucose 143 H (70-99) mg/dL Calculated Osmolality Cancelled Calcium Cancelled Total Bilirubin Cancelled AST Cancelled ALT Cancelled Alkaline Phosphatase Cancelled Troponin I < 0.03 (< 0.04) ng/mL Serum Total Protein Cancelled Albumin Cancelled Globulin Cancelled Albumin/Globulin Ratio Cancelled Urine Color (Yellow) Urine Clarity (Clear) Urine pH (5.0-8.0) pH Units Ur Specific [place] (1.010-1.025) Urine Protein (Neg-Trace) mg/dL Urine Glucose (UA) (Normal) mg/dL Urine Ketones (Negative) mg/dL Urine Blood (Negative) Urine Nitrite (Negative) Urine Bilirubin (Negative) Urine Urobilinogen (Normal) mg/dL Ur Leukocyte Esterase (Negative) Urine Microscopic RBC (0-3) per hpf Urine Microscopic WBC (0-3) per hpf Ur Squamous Epith Cells (None-Few) per lpf Urine Bacteria (None-Few) per hpf Hyaline Casts (None-Few) per lpf Ur Culture Indicated? (NO) Specimen Rejected 05/13/18 05/13/18 05/13/18 Range/Units 16:54 17:50 18:03 WBC (4.3-11.1) K/mcL RBC (3.82-4.97) M/mcL Hgb (11.5-15.4) g/dL Hct (35.3-44.9) % MCV (83.0-100.0) fL MCH (28.0-33.3) pg MCHC (31.6-35.5) g/dL RDW (11.5-14.5) % Plt Count (140-400) K/mcL MPV (9.4-12.4) fL Immature Gran % (0-4) % Seg Neutrophils % % Lymphocytes % % Monocytes % % Eosinophils % % Basophils % % Neutrophils # (1.6-8.9) K/mcL Lymphocytes # (0.6-4.6) K/mcL Monocytes # (0.0-1.3) K/mcL Eosinophils # (0.0-0.6) K/mcL Basophils # (0.0-0.2) K/mcL Platelet Estimate (Normal) Sodium 136 Potassium 4.3 Chloride 104 Carbon Dioxide 22 L BUN 22 Creatinine 0.76 Est GFR ( Amer) > 60 Est GFR (Non-Af Amer) > 60 BUN/Creatinine Ratio 29 H Glucose 118 H POC Glucose (70-99) mg/dL Calculated Osmolality 286 Calcium 10.2 Total Bilirubin 0.4 AST 13 ALT 12 Alkaline Phosphatase 82 Troponin I (< 0.04) ng/mL Serum Total Protein 7.0 Albumin 3.6 Globulin 3.4 Albumin/Globulin Ratio 1.1 Urine Color Yellow (Yellow) Urine Clarity Cloudy A (Clear) Urine pH 6.0 (5.0-8.0) pH Units Ur Specific [place] 1.023 (1.010-1.025) Urine Protein 100 H (Neg-Trace) mg/dL Urine Glucose (UA) Normal (Normal) mg/dL Urine Ketones Negative (Negative) mg/dL Urine Blood Moderate H (Negative) Urine Nitrite Negative (Negative) Urine Bilirubin Negative (Negative) Urine Urobilinogen Normal (Normal) mg/dL Ur Leukocyte Esterase Moderate H (Negative) Urine Microscopic RBC 5-15 H (0-3) per hpf Urine Microscopic WBC 50-100 H (0-3) per hpf Ur Squamous Epith Cells Many H (None-Few) per lpf Urine Bacteria Moderate H (None-Few) per hpf Hyaline Casts Few (None-Few) per lpf Ur Culture Indicated? NO. A (NO) Specimen Rejected Hemolyzed Attestation Statement - Attestation Attestation: I examined this patient and my medical decision-making was reviewed with the Resident Physician. I agree with the documented findings, disposition and treatment plan as described except to the extent set forth below. 77-year-old female presents emergency room for abdominal pain. Generalized in location. She has had one bout of vomiting. Denies any blood in her vomit or stool. No fevers. She has a history of perforated diverticuli with an ostomy site. Patient to have a CT scan as well as lab work. pending disposition
[2018-05-13 17:40] LABS: Platelet Estimate Normal (Normal)
[2018-05-13 18:12] LABS: Bilirubin,Urine Negative (Negative); Blood,Urine Moderate (Negative); Clarity,Urine Cloudy (Clear); Color,Urine Yellow (Yellow); Glucose,Urine (UA) Normal (Normal); Ketones,Urine Negative (Negative); Leukocyte Esterase,Urine Moderate (Negative); Nitrite,Urine Negative (Negative); Protein,Urine 100 mg/dL (Neg-Trace); Specific Gravity,Urine 1.023 (1.010-1.025); Urobilinogen,Urine Normal (Normal)
[2018-05-13 18:14] LABS: Bacteria,Urine Moderate per hpf (None-Few); Hyaline Casts,Urine Few per lpf (None-Few); Squamous Epithelial Cell,Urine Many per lpf (None-Few); WBC,Urine 50-100 per hpf (0-3)
[2018-05-13 18:29] LABS: Alanine Aminotransferase 12 Units/L (7-52); Albumin 3.6 g/dL (3.5-5.7); Albumin/Globulin Ratio 1.1 (1.1-2.2); Alkaline Phosphatase 82 Units/L (34-104); Aspartate Amino Transferase 13 Units/L (13-39); BUN/Creatinine Ratio 29 (6-26); Bilirubin,Total 0.4 mg/dL (0.3-1.0); Blood Urea Nitrogen 22 mg/dL (8-23); Calcium 10.2 mg/dL (8.6-10.3); Carbon Dioxide 22 mEq/L (23-29); Chloride 104 mEq/L (98-107); Globulin 3.4 g/dL (2.4-3.5); Glucose 118 mg/dL (70-105); Osmolality,Calculated 286 (280-300); Potassium 4.3 mEq/L (3.5-5.1); Sodium 136 mEq/L (136-145); eGFR For African Americans > 60 (> 60); eGFR For Non-African Americans > 60 (> 60)
[2018-05-13] MEDS ORDERED: Naloxone 0.4 MG/ML INJ IVP PRN (19:05)
[2018-05-13] MEDS ORDERED: *HR* HYDROcodone/Acet 5/325 mg TABLET PO PRN (19:08)
[2018-05-13] MEDS ORDERED: Promethazine Syrup 6.25 MG/5 ML PO PRN (19:08)
--- NOTE | 2018-05-13 19:18 | Internal Med History&Physical ---
Date of Encounter: 05/13/18 Time of Encounter: 20:00 Internal Medicine - H&P: HPI Chief complaint: Nausea and vomiting Admitted From: Home Plans for Post Hospital Care: Home History of present illness: Ms. Hardy is a 77 year old female presented to the emergency department with abdominal pain, and vomiting. Patient stated that her symptoms started this morning. She had her breakfast and she is going to call back. Denied any blood in the vomitus. Denied any chest pain or shortness of breath. No diarrhea or constipation. Patient has a history of diverticulitis with perforated diverticuli in the past. She had an ostomy about 5 years ago. Denied any bloody stool. CT abdomen was done and did not show any acute findings. Patient had intractable nausea and vomiting in the emergency department. Abdominal pain is diffuse, but her abdomen is soft Past Med Surg Social Fam HX - Past Medical History Medical history: arthritis, diabetes, GERD, hypertension, kidney stones, osteoporosis, RA, thyroid disease, valvular heart disease, other Additional medical history: Parkinson's Psychiatric history: anxiety, depression - Past Surgical History Surgical History: cataract, cholecystectomy, colectomy, colostomy, herniorrhaphy , knee replacement, ureteral stent Additional surgical history: kidney surgery/kidney stone-2014. femur fx-2017. kidney stent - Social History Smoking Status: Never smoker Smokeless Tobacco Status: No Alcohol use: none Drug use: none - Family History Son Adopted: No Living Status: Still Living Hx Family Cardiac Disorders: No Hx Family Respiratory Disorders: Yes Hx Family Cancer: No Hx Family GI Disorders: No Hx Family Endocrine Disorder: No Hx Family Neuromuscular Disorders: No Hx Family Neurologic Disorders: No Hx Family HEENT Disorders: No Hx Family Autoimmune Disorders: Yes (Autoimmune dx, unable to remember name) Father Living Status: Hx Family Cardiac Disorders: Yes (DE, HD, HTN) Mother Living Status: Hx Family Cardiac Disorders: Yes (HD) Brother Living Status: Hx Family Cardiac Disorders: Yes (DE, HD) Internal Medicine - H&P: Meds Carbidopa/Levodopa 25/100 [Sinemet 25/100] 1 each PO TID 07/20/17 [History] Amlodipine Besylate 10 mg PO DAILY 10/02/17 [History] Aspirin 81 mg PO DAILY 10/02/17 [History] FLUoxetine HCl [Fluoxetine HCl] 40 mg PO DAILY 10/02/17 [History] Glimepiride [Amaryl] 4 mg PO DAILY 10/02/17 [History] HYDROcodone/Acet 5/325 mg [[place] 5-325 mg] 1 tab PO Q4H PRN #10 tab 10/02/17 [Rx ] Metformin HCl [Glucophage] 1,000 mg PO BID 10/02/17 [History] Metoprolol [Lopressor] 25 mg PO BID 10/02/17 [History] Omeprazole [PriLOSEC] 20 mg PO DAILY 10/02/17 [History] Potassium Chloride [K-Tab ER] 20 meq PO DAILY 10/02/17 [History] Promethazine Syrup [Phenergan Syrup] 12.5 mg PO Q8HR PRN #250 mls 10/26/17 [Rx] Sucralfate [Carafate] 1 gm PO QIDAC #120 tablet 10/26/17 [Rx] 3 Allergy/AdvReac Type Severity Reaction Status Date / Time RODGER Inhibitors AdvReac See Verified 05/13/18 16:58 Comments ampicillin AdvReac See Verified 05/13/18 16:58 Comments lisinopril AdvReac See Verified 05/13/18 16:58 Comments Tetracycline AdvReac See Verified 05/13/18 16:58 Comments All Systems PM: A 10-system review of systems was performed and is negative for pertinent findings except as documented above in the HPI. - Constitutional Vitals: Temp Pulse Resp BP Pulse Ox 98.1 F 66 20 175/67 100 05/13/18 17:01 05/13/18 18:30 05/13/18 18:30 05/13/18 18:30 05/13/18 18:30 Internal Med - H&P Results - Labs CBC & Chem 7: 05/13/18 16:54 05/13/18 17:50 Labs: Short CBC 05/13/18 Range/Units 16:54 WBC 2.1 L (4.3-11.1) K/mcL Hgb 13.5 (11.5-15.4) g/dL Hct 40.1 (35.3-44.9) % Plt Count 269 (140-400) K/mcL Neutrophils # 1.1 L (1.6-8.9) K/mcL BMP 05/13/18 05/13/18 16:54 17:50 Sodium Cancelled 136 Potassium Cancelled 4.3 Chloride Cancelled 104 Carbon Dioxide Cancelled 22 L BUN Cancelled 22 Creatinine Cancelled 0.76 Glucose Cancelled 118 H Calcium Cancelled 10.2 Cardiac Enzymes 05/13/18 Range/Units 16:54 Troponin I < 0.03 (< 0.04) ng/mL Liver Function 05/13/18 05/13/18 Range/Units 16:54 17:50 Total Bilirubin Cancelled 0.4 AST Cancelled 13 ALT Cancelled 12 Alkaline Phosphatase Cancelled 82 Albumin Cancelled 3.6 Urine 05/13/18 Range/Units 18:03 Urine Color Yellow (Yellow) Urine Clarity Cloudy A (Clear) Urine pH 6.0 (5.0-8.0) pH Units Ur Specific [place] 1.023 (1.010-1.025) Urine Protein 100 H (Neg-Trace) mg/dL Urine Glucose (UA) Normal (Normal) mg/dL - Impressions ITS Impressions Abdomen/Pelvis CT 05/13/18 16:24 IMPRESSION: 1. Non obstructing right renal calculi including 1.6 cm calculus in the right renal pelvis. No left renal, right or left ureteral or intravesicular calculi. 2. 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 3. Similar appearance of contour abnormality of the lower pole of the left kidney, unchanged dating back to 08/21/2014. Nonemergent renal ultrasound could be considered for further evaluation, to assess the underlying renal parenchyma, as indicated. 4. Scattered diverticulosis without CT evidence of diverticulitis. D/ / Patrick Aceves / Patrick Aceves Interpreting Provider: Patrick Aceves - Assessment and plan (1) Intractable nausea and vomiting Current Visit: Yes Status: Acute Assessment and plan: Patient still vomiting in the emergency department CT abdomen did not show any acute findings Continue antiemetics when necessary IV hydration with normal saline at 75 ml/hr Follow clinically Qualifiers: Qualified Code(s): R11.2 - Nausea with vomiting, unspecified (2) Hypertension Current Visit: No Status: Chronic Assessment and plan: Continue current antihypertensives Qualifiers: Hypertension type: essential hypertension Qualified Code(s): I10 - Essential (primary) hypertension (3) Colostomy in place Current Visit: No Status: Acute Assessment and plan: No blood (4) On esomeprazole prophylaxis Current Visit: Yes Status: Acute (5) DVT prophylaxis Current Visit: Yes Status: Acute - Time Spent With Patient Total time spent is greater than 50% in coordination of care (as documented) at patient's floor/unit and/or counseling patient:
[2018-05-13] MEDS: 0.9 % Sodium Chloride 1,000 ML IVC SCH (20:29)
[2018-05-13] MEDS: Carbidopa/Levodopa 25/100 TABLET PO SCH (22:15)
[2018-05-13] MEDS: Sucralfate 1 GM TABLET PO SCH (22:15)
[2018-05-13] MEDS: *HR* Metformin 500 MG TABLET PO SCH (22:16)
[2018-05-14] MEDS: *HR* Enoxaparin 40 MG/0.4 ML SYRINGE SQ SCH (05:22)
--- NOTE | 2018-05-14 06:32 | Electrocardiograph Report ---
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
[2018-05-14 06:38] LABS: Red Cell Distribution Width 13.2 % (11.5-14.5)
[2018-05-14 06:40] LABS: Basophils % 1.3 %; Eosinophils # 0.4 K/mcL (0.0-0.6); Eosinophils % 27.5 %; Hematocrit 33.1 % (35.3-44.9); Lymphocytes # 0.7 K/mcL (0.6-4.6); Lymphocytes % 48.3 %; Mean Corpuscular HGB Conc 33.2 g/dL (31.6-35.5); Mean Corpuscular Hemoglobin 31.8 pg (28.0-33.3); Mean Corpuscular Volume 95.7 fL (83.0-100.0); Mean Platelet Volume 9.9 fL (9.4-12.4); Monocytes # 0.3 K/mcL (0.0-1.3); Monocytes % 18.8 %; Neutrophils # 0.1 K/mcL (1.6-8.9); Platelet Count 221 K/mcL (140-400); Red Blood Count 3.46 M/mcL (3.82-4.97); Segmented Neutrophils % 4.1 %
[2018-05-14 06:57] LABS: BUN/Creatinine Ratio 19 (6-26); Blood Urea Nitrogen 14 mg/dL (8-23); Calcium 9.3 mg/dL (8.6-10.3); Carbon Dioxide 22 mEq/L (23-29); Chloride 105 mEq/L (98-107); Glucose 113 mg/dL (70-105); Magnesium 1.2 mg/dL (1.6-2.6); Osmolality,Calculated 283 (280-300); Phosphorous 3.2 mg/dL (2.7-4.5); Potassium 3.9 mEq/L (3.5-5.1); Sodium 136 mEq/L (136-145); eGFR For African Americans > 60 (> 60); eGFR For Non-African Americans > 60 (> 60)
[2018-05-14] MEDS: Sucralfate 1 GM TABLET PO SCH ×4 (09:36→23:46)
[2018-05-14] MEDS: *HR* Glimepiride 4 MG TABLET PO SCH (09:36)
[2018-05-14] MEDS: FLUoxetine 20 MG CAPSULE PO SCH (09:36)
[2018-05-14] MEDS: Aspirin 81 MG TAB.CHEW PO SCH (09:36)
[2018-05-14] MEDS: Carbidopa/Levodopa 25/100 TABLET PO SCH ×2 (09:36→12:19)
[2018-05-14] MEDS: *HR* Metformin 500 MG TABLET PO SCH ×2 (09:37→17:08)
[2018-05-14] MEDS: amLODIPine 5 MG TABLET PO SCH (09:37)
[2018-05-14] MEDS: 0.9 % Sodium Chloride 1,000 ML IVC SCH (12:17)
--- NOTE | 2018-05-14 14:54 | Internal Med Progress Note ---
Date of Encounter: 05/14/18 Time of Encounter: 10:05 - Assessment and plan (1) Chronic neutropenia Current Visit: Yes Status: Chronic Assessment and plan: Chronic, dating back to 2000. Pt states that she is seen at the cancer center. Appears to be at baseline. Follow up outpatient after discharge. 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 Pt denies change in color or frequency of stools. (3) DVT prophylaxis Current Visit: Yes Status: Acute Assessment and plan: Lovenox (4) Hypertension Current Visit: Yes Status: Chronic Assessment and plan: Mild hypertension, continue to monitor. Adjust medications prn. Hydralazine 10mg IV q6h prn with parameters. Qualifiers: Hypertension type: essential hypertension Qualified Code(s): I10 - Essential (primary) hypertension (5) Nausea & vomiting Current Visit: Yes Status: Acute Assessment and plan: Pt with history of same in the past with admission, most recently in Oct, 2017. Continue IVF and antiemetics. Pt states that she is improving, but will need another day for continued antiemetics prn. Qualifiers: Vomiting type: unspecified Vomiting Intractability: intractable Qualified Code(s): R11.2 - Nausea with vomiting, unspecified (6) On esomeprazole prophylaxis Current Visit: Yes Status: Acute (7) Pancreatic mass Current Visit: Yes Status: Chronic Assessment and plan: Chronic. Per 05/13/18 CT, unchanged from Ct in 2013. Follow outpatient. - Time Spent With Patient Total time spent is greater than 50% in coordination of care (as documented) at patient's floor/unit and/or counseling patient: less than 15 minutes - Subjective Interval history: Pt was seen and assessed at bedside at 1005. She is alert and awake, denies headache, dizziness, vision changes, chest pain, SOB. Pt reports that abdominal pain has resolved, is having some mild nausea, no vomiting. Patient states that she has primarily returned to baseline, but states that she would like to stay another day or antiemetics. She reports that her neutropenia is chronic and in review of records, extends back to 2000. Pt is seen at [facility] and will follow up there after discharged. Likely will go home in the a.m. if she remains stable. - Constitutional Vitals: Temp Pulse Resp BP Pulse Ox 98.1 F 57 15 156/76 96 05/14/18 10:57 05/14/18 10:57 05/14/18 10:57 05/14/18 10:57 05/14/18 10:57 General appearance: Present: cooperative, A&O X 3, pleasant, no acute distress, answers questions appropriately - Head Head exam: Present: atraumatic, normal inspection, normocephalic - Eye Eye exam: Present: normal appearance, conjuntiva pink, sclera anicteric - Neck Neck exam general surgery: Present: supple, trachea midline. Absent: lymphadenopathy, tenderness - Respiratory Respiratory exam: Present: CTAB. Absent: accessory muscle use, rales, respiratory distress, rhonchi, wheezes - Cardiovascular Cardiovascular exam: Present: RRR, +S1, +S2. Absent: diastolic murmur, gallop, rubs, systolic murmur - GI/Abdominal GI/Abdominal exam: Present: normal bowel sounds, soft. Absent: distended, hepatomegaly, tenderness - Extremities Exam Extremities exam: Present: normal capillary refill, normal inspection, warm, radial pulses palpable and symmetrical. Absent: calf tenderness, cyanotic, pedal edema, tenderness - Neurological Exam Neurological exam: Present: alert, oriented X3, no focal deficits, strengths equal and symetr throughout. Absent: facial droop, speech deficit - Skin Skin exam: Present: dry, intact, normal color, warm. Absent: rash Internal Medicine: Result - Labs CBC & Chem 7: 05/14/18 06:20 05/14/18 06:20 Labs: Short CBC 05/14/18 Range/Units 06:20 WBC 1.5 L (4.3-11.1) K/mcL Hgb 11.0 L D (11.5-15.4) g/dL Hct 33.1 L (35.3-44.9) % Plt Count 221 (140-400) K/mcL Neutrophils # 0.1 L (1.6-8.9) K/mcL BMP 05/14/18 06:20 Sodium 136 Potassium 3.9 Chloride 105 Carbon Dioxide 22 L BUN 14 Creatinine 0.75 Glucose 113 H Calcium 9.3 Consult Discharge Plan - Plan Referrals: Philippe Scott Jr, MD [Primary Care Provider] -
[2018-05-15] MEDS: *HR* Enoxaparin 40 MG/0.4 ML SYRINGE SQ SCH (05:34)
[2018-05-15 05:41] LABS: Red Cell Distribution Width 13.2 % (11.5-14.5)
[2018-05-15 05:42] LABS: Basophils % 1.2 %; Eosinophils # 0.4 K/mcL (0.0-0.6); Eosinophils % 20.3 %; Hematocrit 31.6 % (35.3-44.9); Hemoglobin 10.5 g/dL (11.5-15.4); Lymphocytes # 0.8 K/mcL (0.6-4.6); Lymphocytes % 45.3 %; Mean Corpuscular HGB Conc 33.2 g/dL (31.6-35.5); Mean Corpuscular Hemoglobin 31.8 pg (28.0-33.3); Mean Corpuscular Volume 95.8 fL (83.0-100.0); Mean Platelet Volume 10.1 fL (9.4-12.4); Monocytes # 0.4 K/mcL (0.0-1.3); Monocytes % 21.5 %; Neutrophils # 0.2 K/mcL (1.6-8.9); Platelet Count 202 K/mcL (140-400); Segmented Neutrophils % 11.7 %
[2018-05-15 06:00] LABS: BUN/Creatinine Ratio 13 (6-26); Blood Urea Nitrogen 9 mg/dL (8-23); Calcium 9.3 mg/dL (8.6-10.3); Carbon Dioxide 26 mEq/L (23-29); Chloride 110 mEq/L (98-107); Glucose 102 mg/dL (70-105); Osmolality,Calculated 291 (280-300); Potassium 3.6 mEq/L (3.5-5.1); Sodium 141 mEq/L (136-145); eGFR For African Americans > 60 (> 60); eGFR For Non-African Americans > 60 (> 60)
[2018-05-15 06:07] LABS: Platelet Estimate Normal (Normal)
[2018-05-15 07:47] VITALS: BP 183/66
--- NOTE | 2018-05-15 08:20 | Discharge Summary ---
- NOTES TO OUTPATIENT PROVIDER Notes to Outpatient Provider: Pt was admitted for nausea and vomiting that resolved with IVF and antiemetics. Pt has returned to baseline. Date of Encounter: 05/15/18 Time of Encounter: 08:45 - Discharge Diagnosis (1) Chronic neutropenia Priority: Secondary Status: Chronic Assessment and Plan: Chronic, dating back to 2000. Pt states that she is seen at the cancer center. Appears to be at baseline, improved since yesterday. Follow up outpatient after discharge. 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 Pt denies change in color or frequency of stools. NO blood or mucous from colostomy. (3) DVT prophylaxis Priority: Secondary Status: Acute Assessment and Plan: Lovenox SQ daily (4) Hypertension Priority: Secondary Status: Chronic Assessment and Plan: Chronic. Continue home medications. Hydralazine 10mg IV q6h prn with parameters. Qualifiers: Hypertension type: essential hypertension Qualified Code(s): I10 - Essential (primary) hypertension (5) Nausea & vomiting Priority: Primary Status: Resolved Assessment and Plan: Pt with history of same in the past with admission, most recently in Oct, 2017. Resolved with IVF and IV antiemetics. Continue home dose of phenergan and Protonix. Qualifiers: Vomiting type: unspecified Vomiting Intractability: intractable Qualified Code(s): R11.2 - Nausea with vomiting, unspecified (6) On esomeprazole prophylaxis Priority: Secondary Status: Acute (7) Pancreatic mass Priority: Secondary Status: Chronic Assessment and Plan: Chronic. Stable. Continue to follow with PCP. Hospital course: Ms. Hardy is a 77 year old female presented to the emergency room with weakness, nausea and vomiting. She was admitted for intractable nausea and vomiting. Symptoms resolved with IV antiemetics and IV fluids. Patient is improved and is stable and appropriate for discharge. Discharge discussed with: family, nurse - Time Spent with Patient Total time spent providing and/or coordinating discharge services: Less than 30 minutes - Discharge Medications Home Medications: Carbidopa/Levodopa 25/100 [Sinemet 25/100] 1 each PO TID 07/20/17 [History] Amlodipine Besylate 10 mg PO DAILY 10/02/17 [History] Aspirin 81 mg PO DAILY 10/02/17 [History] FLUoxetine HCl [Fluoxetine HCl] 40 mg PO DAILY 10/02/17 [History] Glimepiride [Amaryl] 4 mg PO DAILY 10/02/17 [History] HYDROcodone/Acet 5/325 mg [[place] 5-325 mg] 1 tab PO Q4H PRN #10 tab 10/02/17 [Rx ] Metformin HCl [Glucophage] 1,000 mg PO BID 10/02/17 [History] Metoprolol [Lopressor] 25 mg PO BID 10/02/17 [History] Omeprazole [PriLOSEC] 20 mg PO DAILY 10/02/17 [History] Potassium Chloride [K-Tab ER] 20 meq PO DAILY 10/02/17 [History] Promethazine Syrup [Phenergan Syrup] 12.5 mg PO Q8HR PRN #250 mls 10/26/17 [Rx] Sucralfate [Carafate] 1 gm PO QIDAC #120 tablet 10/26/17 [Rx] Allergies/Adverse Reactions: 3 Allergy/AdvReac Type Severity Reaction Status Date / Time RODGER Inhibitors AdvReac See Verified 05/13/18 16:58 Comments ampicillin AdvReac See Verified 05/13/18 16:58 Comments lisinopril AdvReac See Verified 05/13/18 16:58 Comments Tetracycline AdvReac See Verified 05/13/18 16:58 Comments Date of admission: 05/13/18 19:30 Primary care physician: Philippe Scott Jr, MD Discharging clinician: Shelby Pérez Anticipated date of discharge: 05/15/18 - Constitutional Vitals: Temp Pulse Resp BP Pulse Ox 98.3 F 59 17 183/66 96 05/15/18 07:44 05/15/18 07:44 05/15/18 07:44 05/15/18 07:44 05/15/18 07:44 General appearance: Present: cooperative, A&O X 3, pleasant, no acute distress, answers questions appropriately - Head Head exam: Present: atraumatic, normal inspection, normocephalic - Eye Eye exam: Present: normal appearance, conjuntiva pink, sclera anicteric - Neck Neck exam general surgery: Present: supple, trachea midline. Absent: lymphadenopathy, tenderness - Respiratory Respiratory exam: Present: CTAB. Absent: accessory muscle use, chest wall tenderness, decreased breath sounds, rales, respiratory distress, rhonchi, wheezes - Cardiovascular Cardiovascular exam: Present: RRR, +S1, +S2. Absent: diastolic murmur, gallop, rubs, systolic murmur - GI/Abdominal GI/Abdominal exam: Present: normal bowel sounds, soft. Absent: distended, hepatomegaly, tenderness - Extremities Exam Extremities exam: Present: normal capillary refill, normal inspection, warm, radial pulses palpable and symmetrical. Absent: calf tenderness, cyanotic, pedal edema, tenderness - Neurological Exam Neurological exam: Present: alert, oriented X3, no focal deficits. Absent: altered, facial droop, speech deficit - Skin Skin exam: Present: dry, intact, normal color, warm. Absent: rash - Patient Status Disposition: Home, Self-Care Condition: Good Functional capacity at discharge: independent ambulation Overall status at discharge: patient is progressing back to baseline - Discharge Instructions Instructions: Acute Nausea and Vomiting (DC), Acute Abdominal Pain (DC) Follow Up With: Philippe Scott Jr, MD [Primary Care Provider] - (Your appointment has been requested. The offfices will call you with a follow up appointment time and date.) Additional Instructions: Please follow up with your PCP in the next week to 10 days for a recheck. Return to the ER as needed for any other problems or concerns or if your symptoms return or worsen. Take your medications as directed. Return to your normal diet and activities as tolerated. Follow-up appointments: If there is not an appointment listed below, please call your physician and schedule a follow-up appointment. If you have congestive heart failure and your symptoms return, make an appointment with your physician. Medication List: Carry an up to date list of medications you are taking at all time. We have given you an updated medication list including any new medications that you have been prescribed. Please provide that list to your primary provider Symptoms: If your condition changes or you experience any of the following symptoms, notify your physician immediately: Unusual or worsening pain, fever, persistent nausea and vomiting, bleeding, increase in swelling (especially in your legs), sudden weight gain, extreme dizziness, chest pain, increased drainage or redness from a wound or incision. Go to the emergency department if you experience a problem with breathing. Weights: If you have a history of swelling or shortness of breath, weigh yourself daily and notify your physician if you have a weight gain of two or more pounds in one day or 5 or more pounds in a week. If you experience any of the warning signs for stroke: Sudden numbness or weakness of the face, arm or leg; especially on one side of the body, sudden confusion, trouble speaking or understanding, sudden trouble seeing in one or both eyes, sudden trouble walking, dizziness, loss of balance or coordination, sudden sever headache with no cause; Call 911 or go to the emergency room. Stroke is a medical emergency. Some risk factors for stroke: Age, cigarette smoking, diabetes, excessive alcohol consumption, family history , high blood pressure, overweight, physical inactivity, prior stroke, heart attack, diagnosis of carotid artery stenosis or other artery disease. If you smoke, STOP: Smoking or tobacco use significantly increases your risk of heart and lung disease. Your chance of disease greatly increases if you continue to smoke. For more information, call the [place] tobacco quit line for smoking cessation QUIT-NOW ( ) - Diet and Activity Activity: increase activity as tolerated Diet: advance to your usual diet
[2018-05-15] MEDS: FLUoxetine 20 MG CAPSULE PO SCH (08:51)
[2018-05-15] MEDS: Sucralfate 1 GM TABLET PO SCH (08:52)
[2018-05-15] MEDS: amLODIPine 5 MG TABLET PO SCH (08:52)
[2018-05-15] MEDS: *HR* Glimepiride 4 MG TABLET PO SCH (08:52)
[2018-05-15] MEDS: *HR* Metformin 500 MG TABLET PO SCH (08:52)
[2018-05-15] MEDS: Aspirin 81 MG TAB.CHEW PO SCH (08:52)
== END 2018-05-15 10:37 | disposition home or self-care (01) ==
LOC: EMEROO 14:34 → 3BNU 14:34
PROVIDERS: ADMIT Internal Medicine; ATTEND Internal Medicine

== ENCOUNTER 2019-03-11 09:00 | Inpatient (IN) ==
[2019-03-11] MEDS ORDERED: Levofloxacin 500 MG/100 ML 500 MG/100 ML BAG IVPB ONE (09:26)
[2019-03-11] MEDS ORDERED: Ringers Solution, Lactated 1,000 ML IVC SCH (09:30)
--- NOTE | 2019-03-11 09:59 | Anesthesia Evaluation PreOp ---
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's disease) Other Medical History: Renal (kidney stones), Diabetes Type II, GERD, Other (RA, leukopenia, depression) Anesthesia History: Past Anesthesia (colostomy), Problems (slow to awake) Alcohol Use: none Drug use: none Medications and Allergies Aspirin 81 mg PO DAILY 10/02/17 [History] FLUoxetine HCl [Fluoxetine HCl] 40 mg PO DAILY 10/02/17 [History] Glimepiride [Amaryl] 4 mg PO DAILY 10/02/17 [History] Metformin HCl [Glucophage] 1,000 mg PO BID 10/02/17 [History] Omeprazole [PriLOSEC] 20 mg PO DAILY 10/02/17 [History] Potassium Chloride [K-Tab ER] 20 meq PO DAILY 10/02/17 [History] Amlodipine Besylate 10 mg PO DAILY 03/11/19 [History] Magnesium Oxide [Magnesium] 400 mg PO BID 03/11/19 [History] Metoprolol Tartrate 50 mg PO BID 03/11/19 [History] Prevagen 1 cap PO DAILY 03/11/19 [History] Sucralfate [Carafate] 1 gm PO TID 03/11/19 [History] Allergy/AdvReac Type Severity Reaction Status Date / Time RODGER Inhibitors AdvReac See Verified 03/11/19 10:31 Comments ampicillin AdvReac See Verified 03/11/19 10:31 Comments lisinopril AdvReac See Verified 03/11/19 10:31 Comments tetracycline [Tetracycline] AdvReac See Verified 03/11/19 10:31 Comments - Meds/Allergy Pre-op Review Medications Reviewed: Yes Allergies Reviewed: Yes Beta Blockers on Current Med List: Yes If Beta Blockers taken, Date/Time (Last Dose taken): 03/11/2019 at 0800 Anesthesia Results - Labs 03/11/19 10:32 Laboratory Tests 07/21/17 01/17/19 03/11/19 06:02 18:07 10:32 PT 11.3 INR 1.0 APTT 29.0 D Sodium 137 Potassium 4.4 BUN 18 Creatinine 0.91 - Imaging EKG: report reviewed (01/17/2019 Sinus rhythm Prolonged ID interval Left anterior fascicular block Abnormal R-wave progression, late transition Left ventricular hypertrophy Borderline prolonged QT interval Left axis deviation POOR R WAVE PROGRESSION) Anesthesia Exam O2 Sat Height 1.57 m Height 1.57 m Weight 74.389 kg Weight 74.389 kg O2 Sat by Pulse Oximetry 96 O2 Sat by Pulse Oximetry 97 Vital Signs Temp Pulse Resp BP Pulse Ox 98.2 F 60 18 151/70 97 03/11/19 09:35 03/11/19 09:35 03/11/19 09:35 03/11/19 09:35 03/11/19 09:35 Blood Glucose* 126 Height: 5'2'' Weight: 164 lbs NPO (# of Hours): 8 Pain Scale: 0 Pain Scale Used: Numeric (1 - 10) - HEENT Pupil (Motor): EOMI Mallampati: III Teeth: Poor dentition Oral Opening: Greater than 3 - 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
[2019-03-11 10:43] LABS: Basophils % 2.1 %; Eosinophils # 0.2 K/mcL (0.0-0.6); Eosinophils % 15.8 %; Hematocrit 33.1 % (35.3-44.9); Hemoglobin 10.5 g/dL (11.5-15.4); Lymphocytes # 0.6 K/mcL (0.6-4.6); Lymphocytes % 41.1 %; Mean Corpuscular HGB Conc 31.7 g/dL (31.6-35.5); Mean Corpuscular Hemoglobin 30.2 pg (28.0-33.3); Mean Corpuscular Volume 95.1 fL (83.0-100.0); Mean Platelet Volume 9.9 fL (9.4-12.4); Monocytes # 0.4 K/mcL (0.0-1.3); Monocytes % 29.5 %; Neutrophils # 0.2 K/mcL (1.6-8.9); Platelet Count 201 K/mcL (140-400); Red Blood Count 3.48 M/mcL (3.82-4.97); Red Cell Distribution Width 14.6 % (11.5-14.5); Segmented Neutrophils % 11.5 %
[2019-03-11 10:45] LABS: Platelet Estimate Normal (Normal)
[2019-03-11 10:51] LABS: Prothrombin Time 11.3 Seconds (9.4-12.1)
[2019-03-11] MEDS ORDERED: *HR* Midazolam HCl 2 MG/2 ML VIAL IVP ONE (10:55)
--- NOTE | 2019-03-11 10:55 | Urology History & Physical ---
Date of Encounter: 03/11/19 Time of Encounter: 10:54 Assessment and Plan (1) Renal stone Current Visit: Yes Status: Acute proceed with PCNL History of Present Illness Chief complaint: pain HPI: Ms. Hardy is a 78 year old female 19 mm right renal stone. Past Med Surg Social Fam HX - Past Medical History Medical history: diabetes, hypertension Additional medical history: Parkinson's. IBS Psychiatric history: anxiety, depression - Past Surgical History Surgical History: cataract, cholecystectomy, colectomy, colostomy, herni orrhaphy, knee replacement, ureteral stent Additional surgical history: kidney surgery/kidney stone-2014. femur fx-2017. kidney stent - Social History Smoking Status: Never smoker Smokeless Tobacco Status: No Alcohol use: none Drug use: none - Family History Son Adopted: No Living Status: Still Living Hx Family Cardiac Disorders: No Hx Family Respiratory Disorders: Yes Hx Family Cancer: No Hx Family GI Disorders: No Hx Family Endocrine Disorder: No Hx Family Neuromuscular Disorders: No Hx Family Neurologic Disorders: No Hx Family HEENT Disorders: No Hx Family Autoimmune Disorders: Yes (Autoimmune dx, unable to remember name) Father Living Status: Hx Family Cardiac Disorders: Yes (LA, HD, HTN) Mother Living Status: Hx Family Cardiac Disorders: Yes (HD) Brother Living Status: Hx Family Cardiac Disorders: Yes (LA, HD) Medications and Allergies Aspirin 81 mg PO DAILY 10/02/17 [History] FLUoxetine HCl [Fluoxetine HCl] 40 mg PO DAILY 10/02/17 [History] Glimepiride [Amaryl] 4 mg PO DAILY 10/02/17 [History] Metformin HCl [Glucophage] 1,000 mg PO BID 10/02/17 [History] Omeprazole [PriLOSEC] 20 mg PO DAILY 10/02/17 [History] Potassium Chloride [K-Tab ER] 20 meq PO DAILY 10/02/17 [History] Amlodipine Besylate 10 mg PO DAILY 03/11/19 [History] Magnesium Oxide [Magnesium] 400 mg PO BID 03/11/19 [History] Metoprolol Tartrate 50 mg PO BID 03/11/19 [History] Prevagen 1 cap PO DAILY 03/11/19 [History] Sucralfate [Carafate] 1 gm PO TID 03/11/19 [History] Allergy/AdvReac Type Severity Reaction Status Date / Time RODGER Inhibitors AdvReac See Verified 03/11/19 10:31 Comments ampicillin AdvReac See Verified 03/11/19 10:31 Comments lisinopril AdvReac See Verified 03/11/19 10:31 Comments tetracycline [Tetracycline] AdvReac See Verified 03/11/19 10:31 Comments Review of Systems - Constitutional no fever(s) Exam Initial Vital Signs Temp Pulse Resp BP Pulse Ox 98.2 F 60 18 151/70 97 03/11/19 09:35 03/11/19 09:35 03/11/19 09:35 03/11/19 09:35 03/11/19 09:35 - General physical appearance Present: no distress Urology Results - Labs 03/11/19 10:32 Abnormal lab results WBC 1.5 K/mcL (4.3-11.1) L 03/11/19 10:32 RBC 3.48 M/mcL (3.82-4.97) L 03/11/19 10:32 Hgb 10.5 g/dL (11.5-15.4) L 03/11/19 10:32 Hct 33.1 % (35.3-44.9) L 03/11/19 10:32 RDW 14.6 % (11.5-14.5) H 03/11/19 10:32 0.2 K/mcL (1.6-8.9) L 03/11/19 10:32 All other labs normal.
[2019-03-11] MEDS ORDERED: *HR* FentaNYL (PF) 100 MCG/2 ML VIAL IVP ONE (10:56)
[2019-03-11] MEDS ORDERED: 0.9 % Sodium Chloride 500 ML ONE (11:11)
[2019-03-11] MEDS ORDERED: Ondansetron 4 MG/2 ML VIAL IVP ONE (11:40)
[2019-03-11] MEDS ORDERED: *HR* OxyCODONE Immed Rel 5 MG TABLET PO PRN ×2 (11:40→18:28)
[2019-03-11] MEDS ORDERED: *HR* Morphine 2 MG/ML SYRINGE IVP PRN (11:40)
[2019-03-11] MEDS ORDERED: Isovue-300 50 ML VIAL IVP ONE ×2 (11:46→12:11)
--- NOTE | 2019-03-11 12:10 | History & Physical Report ---
Date of Encounter: 03/11/19 Time of Encounter: 11:20 24 Hour HP Update - Instructions Instructions: If the History and Physical is less than 30 days old and was completed prior to A.M. admission and or procedure and has NOT been updated on calendar day of procedure please complete this update prior to performing procedure. - Update Patient reports changes in Medical Condition: No Changes in examination, assessment, or condition: No Changes in Medication: No Preop tests/diagnostics Reviewed: Yes Surgery Remains Indicated: Yes Consent for Planned Operative Procedure(s) Verified: Yes - Pre-Operative Checklist Prophylactic Antibiotic Ordered: Yes
--- NOTE | 2019-03-11 12:11 | IR Procedure Note ---
Date of procedure: 03/11/19 Consent Obtained: Written consent Timeout: Correct patient and procedure verified, Correct site verified, Time out performed, Skin prep completed Local anesthetic: Lidocaine 1% Indications: Right kidney stone Procedure Performed: Right nephroureteral catheter placement Was there an assistant kitchen manager present: No Results/Findings: 5F right NU cath placement Estimated blood loss (cc): 0 Complications: None; Tolerated procedure well Post Procedure Treatment Plan: To pre-op holding Specimen: None
[2019-03-11] MEDS ORDERED: EPHEDrine 50 MG/ML VIAL ONE (14:56)
[2019-03-11] MEDS ORDERED: *HR* Propofol 200 MG/20 ML VIAL IVP ONE (14:57)
[2019-03-11] MEDS ORDERED: *HR* FentaNYL (PF) 100 MCG/2 ML VIAL ONE (14:57)
[2019-03-11] MEDS ORDERED: Lidocaine -MPF 4% 5 ML AMPUL ONE (15:00)
[2019-03-11] MEDS ORDERED: Isovue-300 150 ML INFUS..BTL ONE (15:01)
[2019-03-11] MEDS ORDERED: Lidocaine -MPF 2% 2 ML VIAL ONE (15:02)
[2019-03-11] MEDS ORDERED: Ondansetron 4 MG/2 ML VIAL ONE (15:02)
[2019-03-11] MEDS ORDERED: *HR* Succinylcholine 200 MG/10 ML VIAL IVP ONE (15:02)
[2019-03-11] MEDS ORDERED: Acetaminophen IV 1,000 MG/100 ML INFUS..BTL ONE (15:16)
--- NOTE | 2019-03-11 18:26 | Anesthesia Evaluation Post Op ---
Date of Encounter: 03/11/19 Time of Encounter: 18:25 - Vital Signs Vital Signs: Vital Signs/O2 Sat, Most Current Temp Pulse Resp BP Pulse Ox 98.9 F 65 22 146/70 100 03/11/19 17:49 03/11/19 17:59 03/11/19 17:59 03/11/19 17:59 03/11/19 17:59 - Lungs Lungs: Clear Ascult./Percussion - Airway Airway: Non-obstructed - Cardiovascular Regular Rate - Mental Status Mental Status: Alert & Oriented, Answers Appropriately - Pain Pain Scale: 0 Pain Scale used: Numeric (1 - 10) - Nausea Vomiting Nausea Vomiting: Not Present - Hydration Hydration: Tolerates oral liquids - Discharge PostOp Status: Transfer Patient to floor
[2019-03-11] MEDS ORDERED: *HR* Belladonna Alkaloids/Opium 30 MG RECTAL SUPPOSITORY RC PRN (18:28)
[2019-03-11] MEDS ORDERED: traMADol 50 MG TABLET PO PRN (18:28)
[2019-03-11] MEDS ORDERED: Ondansetron 4 MG/2 ML VIAL IVP PRN (18:28)
[2019-03-11] MEDS ORDERED: OXYCODONE Oral CONC 10 MG/0.5 ML ORAL.SYG SL PRN ×2 (18:28)
[2019-03-11] MEDS ORDERED: 0.9 % Sodium Chloride 1,000 ML IVC SCH (18:28)
[2019-03-11] MEDS ORDERED: Naloxone 0.4 MG/ML INJ IVP PRN (18:28)
[2019-03-11] MEDS ORDERED: Acetaminophen 325 MG TABLET PO PRN (18:28)
--- NOTE | 2019-03-11 19:40 | Operative Note ---
Date of procedure: 03/11/19 Pre-op diagnosis: 2.1 cm right renal pelvis stone Post-op diagnosis: same Procedure: right PCNL. stone size 2.1 cm dilation of nephrostomy tract nephrostogram antegrade JJ stent placement nephrostomy tube placement Anesthesia: GETA Surgeon: Juan Manuel Elizabeth Was there an anesthesiologists' assistant present: No Estimated blood loss (cc): 50 Specimen: donnie stone Condition: stable Disposition: PACU Procedure in Detail: Procedure in detail Patient was brought to OR and anesthesia was applied while the patient was on the hospital stretcher. He was then moved into the prone postion. ECPDS and ramos cath were in place. Proper patient cushioning was provided. Reentry n ephrostomy placed by IR was identified. She had significant bulge of her flank likely from lack of muscle innervation. THe cath tunneled shallow under the skin and I later used the scalpel to incise the skin over the tunneled portion to allow for perpendicular access. She was prepped and draped with the nephrostomy tube left in place. Time out was performed to confirm the proper patient and procedure. A 0.035 zip wire was placed through the reentry nephrostomy under fluoroscopy. The nephrostomy was removed leaving the wire in place. An 8 spanish dilator was then placed over the wire under fluoroscopy into the renal pelvis. A nephrostogram was performed to confirm position and a second wire was positioned down the ureter. It appeared the access was in the lower pole calyx vs directly into the renal pelvis. The double lumen sheath was removed and the nephromax balloon (30 spanish) was placed over one of the wires and the radiodense markers positioned just inside the calyx/renal pelvis. At this point I confirmed that the access was made into the renal pelvis rather than a posterior calyx. Despite this I noticed no significant bleeding during the procedure but later it appeared the access sheath appeared to split a portion of the pelvis to a small degree. Overall the pelvis was intact. The balloon was inflated to 12-14 atmospheres of pressure and the waist was appro priately expanded. The blue reentry sheath was then passed over the balloon into the renal pelvis under flouroscopy. The balloon was removed and the nephroscope was inserted. The renal pelvis stone was visualized and fragmented with both the pneumatic and ultrasonic energy. I removed the larger pieces with a 2 prong grasper. the small pieces were removed with the ultrasonic energy and suction. I felt all significant stone was removed. Because of the renal pelvis access issue, I elected to place an antegrade 4.8 x 26 stent. I placed the stent over a wire through the flexible cystoscope to provide backing. A good curl was visualized in the renal pelvis with the scope and flouro. Unfortunately, the distal portion of the stent migrated out the urethral around the cath. I later performed a prone flexible cystoscopy to push the stent curl back into the bladder. I attempted to place a 14 spanish cath nephrostomy but it would not guide into the proper position. I eventually placed a malecot reentry nephrostomy. I did consider risk of accidental stent removal during the nephrostomy removal in the AM. the malecot was secured with a 2-0 PDS and dressings placed. nephrostogram at the end of the procedure confirmed proper position but some extravasation.
[2019-03-11] MEDS ORDERED: D5% in Water 1,000 ML IVC PRN (19:51)
[2019-03-11] MEDS ORDERED: *HR* Dextrose 50 % in Water (Syg) 50 ML SYRINGE IVP PRN (19:51)
[2019-03-11] MEDS ORDERED: Dextrose Gel 15 GM/37.5 ML TUBE PO PRN ×2 (19:51)
[2019-03-11] MEDS: Sulfamethoxazole/Trimeth DS 1 EACH TABLET PO SCH (20:58)
[2019-03-11] MEDS: Insulin LISPRO 300 UNITS/3 ML VIAL SQ SCH (22:47)
[2019-03-12] MEDS ORDERED: Ondansetron 4 MG/2 ML VIAL IVP PRN (03:31)
[2019-03-12 03:57] LABS: Hemoglobin 11.5 g/dL (11.5-15.4); Mean Platelet Volume 10.4 fL (9.4-12.4)
[2019-03-12 03:59] LABS: Eosinophils % 2.7 %; Hematocrit 37.2 % (35.3-44.9); Immature Granulocytes % 1.4 % (0-4); Lymphocytes # 0.4 K/mcL (0.6-4.6); Lymphocytes % 27.7 %; Mean Corpuscular HGB Conc 30.9 g/dL (31.6-35.5); Mean Corpuscular Hemoglobin 29.4 pg (28.0-33.3); Mean Corpuscular Volume 95.1 fL (83.0-100.0); Monocytes # 0.7 K/mcL (0.0-1.3); Monocytes % 45.9 %; Neutrophils # 0.3 K/mcL (1.6-8.9); Platelet Count 200 K/mcL (140-400); Red Blood Count 3.91 M/mcL (3.82-4.97); Red Cell Distribution Width 14.6 % (11.5-14.5); Segmented Neutrophils % 20.3 %
[2019-03-12 04:04] LABS: INR 1.2; Prothrombin Time 13.2 Seconds (9.4-12.1)
[2019-03-12 04:43] LABS: Platelet Estimate Normal (Normal)
--- NOTE | 2019-03-12 07:19 | Urology Progress Note ---
Date of Encounter: 03/12/19 Time of Encounter: 07:17 - Assessment and Plan (1) Renal stone Current Visit: Yes Status: Resolved Assessment and plan: need to wait on BMP before removing nephrostomy tube. low grade temp overnight. on double ABX coverage for both organisms from last culture. likely discharge today. will likely leave cath in place at discharge bc of stent to promote drainage from kidney Progress Note Narrative: feels "OK" some nausea. Objective Initial Vital Signs Temp Pulse Resp BP Pulse Ox 98.2 F 60 18 151/70 97 03/11/19 09:35 03/11/19 09:35 03/11/19 09:35 03/11/19 09:35 03/11/19 09:35 - General physical appearance Present: no distress - Additional Exam clear urine from nephrostomy scant urine in cath - clear. - Labs 03/12/19 03:20 Consult Discharge Plan - Plan Referrals: Philippe Scott Jr, MD [Primary Care Provider] - Juan Manuel Elizabeth MD [Partnered Physician] -
[2019-03-12] MEDS: Sulfamethoxazole/Trimeth DS 1 EACH TABLET PO SCH (07:55)
[2019-03-12] MEDS: Insulin LISPRO 300 UNITS/3 ML VIAL SQ SCH ×4 (08:00→22:27)
[2019-03-12] MEDS ORDERED: Levofloxacin 500 MG/100 ML 500 MG/100 ML BAG IVPB SCH (09:00)
[2019-03-12 09:14] LABS: BUN/Creatinine Ratio 16 (6-26); Blood Urea Nitrogen 17 mg/dL (8-23); Calcium 9.1 mg/dL (8.6-10.3); Carbon Dioxide 28 mEq/L (23-29); Chloride 103 mEq/L (98-107); Glucose 167 mg/dL (70-105); Osmolality,Calculated 289 (280-300); Sodium 137 mEq/L (136-145); eGFR For Non-African Americans 51 (> 60)
--- NOTE | 2019-03-12 09:43 | Oncology Inp Consult Note ---
<Chitra Harris L - Last Filed: 03/12/19 16:09> Date of Encounter: 03/12/19 Time of Encounter: 11:00 Assessment and Plan (1) Chronic neutropenia Status: Acute Assessment and plan: Chronic neutropenia dating back to at least 2000. Neutropenia is quite severe. She appeared to have been doing well from an infectious standpoint despite her neutropenia until around October,. According to outpatient clinic notes, she was noted to have recurrent UTI infections around this time and was utilizing neupogen at nursing facility. She has not followed up outpatient since then. Most recently, her denies issues with recurrent infections. She was previously evaluated at [facility] with myeloid sequencing panel to search for any mutations that could be driving the cytopenia. Her sequencing panel was negative. 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 Admitted for nephrolithiasis status post right PCNL with removal of 2.1 cm stone 03/11/2019 and she was noted to have a low grade fever overnight (TMAX 99.9) with altered mental status this AM and started on broad spectrum ATB coverage for both organisms from last culture 02/06/2019 (Escherichia coli and Proteus mirabilis) Currently on ertapenem, in the case of stone removal there is concern for increased bacterial load in the urine for a significant amount of time Plan: ANC 300 today, TMAX 99.9 in past 24 hours Specific treatment for her autoimmune neutropenia is generally not required, however, in the setting of suspected infection/high risk for infection s/p PCNL, we will order neupogen 480 mcg/daily until ANC >1.5 - Data of Consult Patient: known to practice within the last 3 years Consult date: 03/12/19 Requesting Physician: Juan Manuel Elizabeth Primary Care Provider: Philippe Scott Jr, MD - Consult Narrative Reason for consult: Autoimmune neutropenia History of present illness: Ms. Hardy is a 76 year old female with a long-standing history of rheumatoid arthritis was found to have leukopenia and neutropenia dating back to 2000. She has not had significant complications related to neutropenia despite its severity over the years. She does have rheumatoid arthritis. She has been treated with methotrexate and possibly Humira/Remicade in the past but has been off therapy for "years". She has received Neupogen in the past in times of infection which was well-tolerated. She has had multiple bone marrow biopsies in the past, most recent one 03/12/2001 showed no dysplasia or evidence of leukemia. Admitted for nephrolithiasis status post right PCNL with removal of 2.1 cm stone 03/11/2019. She was noted to have a low grade fever overnight (TMAX 99.9) and worsening AMS this morning. Oncology has been consulted for further recommendations for neutropenia in setting of suspected infection/high risk for infection s/p PCNL. Past Med Surg Social Fam HX - Past Medical History Medical history: diabetes, hypertension Additional medical history: Parkinson's. IBS Psychiatric history: anxiety, depression - Past Surgical History Surgical History: cataract, cholecystectomy, colectomy, colostomy, herniorr haphy, knee replacement, ureteral stent Additional surgical history: kidney surgery/kidney stone-2014. femur fx-2016. kidney stent - Social History Smoking Status: Never smoker Smokeless Tobacco Status: No Alcohol use: none Drug use: none - Family History Son Adopted: No Living Status: Still Living Hx Family Cardiac Disorders: No Hx Family Respiratory Disorders: Yes Hx Family Cancer: No Hx Family GI Disorders: No Hx Family Endocrine Disorder: No Hx Family Neuromuscular Disorders: No Hx Family Neurologic Disorders: No Hx Family HEENT Disorders: No Hx Family Autoimmune Disorders: Yes (Autoimmune dx, unable to remember name) Father Living Status: Hx Family Cardiac Disorders: Yes (CA, HD, HTN) Mother Living Status: Hx Family Cardiac Disorders: Yes (HD) Brother Living Status: Hx Family Cardiac Disorders: Yes (CA, HD) Medications and Allergies Aspirin 81 mg PO DAILY 10/02/17 [History] FLUoxetine HCl [Fluoxetine HCl] 40 mg PO DAILY 10/02/17 [History] Glimepiride [Amaryl] 4 mg PO DAILY 10/02/17 [History] Metformin HCl [Glucophage] 1,000 mg PO BID 10/02/17 [History] Omeprazole [PriLOSEC] 20 mg PO DAILY 10/02/17 [History] Potassium Chloride [K-Tab ER] 20 meq PO DAILY 10/02/17 [History] Amlodipine Besylate 10 mg PO DAILY 03/11/19 [History] Magnesium Oxide [Magnesium] 400 mg PO BID 03/11/19 [History] Metoprolol Tartrate 50 mg PO BID 03/11/19 [History] Prevagen 1 cap PO DAILY 03/11/19 [History] Sucralfate [Carafate] 1 gm PO TID 03/11/19 [History] Allergy/AdvReac Type Severity Reaction Status Date / Time RODGER Inhibitors AdvReac See Verified 03/11/19 10:31 Comments ampicillin AdvReac See Verified 03/11/19 10:31 Comments lisinopril AdvReac See Verified 03/11/19 10:31 Comments tetracycline [Tetracycline] AdvReac See Verified 03/11/19 10:31 Comments Oncology - Exam - Constitutional General appearance: cooperative, no acute distress, no febrile - Head Head exam: Present: atraumatic - ENT ENT exam: Present: mucous membranes moist, normal oropharynx - Respiratory Respiratory exam: Present: CTAB. Absent: respiratory distress - Cardiovascular Cardiovascular exam: Present: RRR - GI/Abdominal GI/Abdominal exam: Present: normal bowel sounds, soft. Absent: tenderness - Additional comments: ramos cath with scant dark colored urine - Back Exam Additional comments: Right nephrostomy with dark colored urine - Neurological Exam Neurological exam: Present: alert, no focal deficits, strengths equal and symetr throughout Additional comments: Disoriented and confused at times, unable to tell me her name/ - Psychiatric Psychiatric exam: Present: flat affect - Skin Skin exam: Present: dry, intact, normal color, warm Consult Discharge Plan - Plan Referrals: Philippe Scott Jr, MD [Primary Care Provider] - Juan Manuel Elizabeth MD [Partnered Physician] - Inpatient Charges Provider: Dr. Walt Ureña <AdelitaEulogio S - Last Filed: 03/12/19 20:51> Date of Encounter: 03/12/19 - Data of Consult Requesting Physician: Juan Manuel Elizabeth Primary Care Provider: Philippe Scott Jr, MD - Attending Attestation I have seen and examined Ms. Hardy and agree with the plan put in place by Ms. Harris. Ms. Hardy is an elderly, frail woman who is status post right PCNL with removal of 2.1 cm stone. She is followed by Dr. Yung for history of autoimmune neutropenia/leukopenia. Bone marrow aspirate and biopsy has been unremarkable. A myeloid neoplasm panel performed at [facility] was also unrevealing. She has had no significant sequelae of her neutropenia. After her procedure yesterday, she developed fever and confusion overnight. Her and box have been brought in. We are asked if Neupogen would be of benefit. Given her acute change in mental status and prior response Neupogen, I think initiation of neupogen is reasonable. Usually, patients with autoimmune neutropenia have a functional immune system despite her low blood counts. Goal ANC would be 1500. Agree with broad spectrum antibiotics as well. On exam, she is currently afebrile and comfortable. She is able to recall her name, age as well as current location. Nephrostomy output with dark urine. No skin rash. Inpatient Charges Provider: Dr. Walt Ureña Consult - Inpatient Medicare Only: [id number]
--- NOTE | 2019-03-12 09:48 | Internal Medicine Consult Note ---
Date of Encounter: 03/12/19 Time of Encounter: 09:00 - Summary of Assessment and Plan Summary of Assessment and Plan: #1 nephrolithiasis status post right PCNL-management per primary team especially pain control and DVT prophylaxis. #2 lethargy-could be manifestation of an underlying infection. The patient is neutropenic and I strongly believe in a broadening the spectrum of antibiotics. I will discuss this with the primary team and we will switch her to ertapenem and discontinue Levaquin and Bactrim. I would recommend at least 7-10 days of IV antibiotic course. The patient recently underwent a PCNL with stone removal- in case of an infected stone and this could lead to increased bacterial load in the urine for a significant amount of time. She would also need a better peripheral access-midline versus PICC line #3 complicated UTI with Escherichia coli and Proteus mirabilis. See plan #2 above for broadened antibiotic coverage. Vital signs so far are stable #4 chronic neutropenia-on chart review the patient has had this problem for several years and has seen oncology including Neupogen shots. I would recommend consulting oncology even the patient's current clinical picture to see if Neupogen again would be of any benefit. In the meantime we will broaden the coverage and monitor clinically. Thank you for this consultation we will continue to work with you - Time Spent With Patient Total time spent is greater than 50% in coordination of care (as documented) at patient's floor/unit and/or counseling patient: Greater than 35 minutes (Total time spent in admitting the care for the patient including juip-so-bbed examination is 50 minutes) Internal Medicine - CN: HPI - Data of Consult Patient: known to practice within the last 3 years Consult date: 03/12/19 Requesting Physician: Juan Manuel Elizabeth - Consult Narrative Reason for consult: Antibiotic management and neutropenia History of present illness: Ms. Hardy is a 78 year old female with a past medical history of chronic neutropenia of unclear etiology and has received Neupogen in the past, multiple renal stones status post nephrolithotomy for a 2.1 cm right renal pelvis stone. The patient had an uneventful surgery last night but she has low-grade fevers and is feeling lethargic today and that is why we are being consulted. Patient denies any overt fever or chills but does feel like of energy since her surgery. She has not received significant amount of pain medication since overnight. Of note she was initially treated in the ER on the of this month and given a seven-day course of Bactrim. She also has neutropenia with absolute neutrophil count of 200-300 Past Med Surg Social Fam HX - Past Medical History Medical history: diabetes, hypertension Additional medical history: Parkinson's. IBS Psychiatric history: anxiety, depression - Past Surgical History Surgical History: cataract, cholecystectomy, colectomy, colostomy, herniorrhaphy, knee replacement, ureteral stent Additional surgical history: kidney surgery/kidney stone-2014. femur fx-2017. kidney stent - Social History Smoking Status: Never smoker Smokeless Tobacco Status: No Alcohol use: none Drug use: none - Family History Son Adopted: No Living Status: Still Living Hx Family Cardiac Disorders: No Hx Family Respiratory Disorders: Yes Hx Family Cancer: No Hx Family GI Disorders: No Hx Family Endocrine Disorder: No Hx Family Neuromuscular Disorders: No Hx Family Neurologic Disorders: No Hx Family HEENT Disorders: No Hx Family Autoimmune Disorders: Yes (Autoimmune dx, unable to remember name) Father Living Status: Hx Family Cardiac Disorders: Yes (DC, HD, HTN) Mother Living Status: Hx Family Cardiac Disorders: Yes (HD) Brother Living Status: Hx Family Cardiac Disorders: Yes (DC, HD) All systems: reviewed and no additional remarkable complaints except as stated Internal Medicine - CN: Meds Aspirin 81 mg PO DAILY 10/02/17 [History] FLUoxetine HCl [Fluoxetine HCl] 40 mg PO DAILY 10/02/17 [History] Glimepiride [Amaryl] 4 mg PO DAILY 10/02/17 [History] Metformin HCl [Glucophage] 1,000 mg PO BID 10/02/17 [History] Omeprazole [PriLOSEC] 20 mg PO DAILY 10/02/17 [History] Potassium Chloride [K-Tab ER] 20 meq PO DAILY 10/02/17 [History] Amlodipine Besylate 10 mg PO DAILY 03/11/19 [History] Magnesium Oxide [Magnesium] 400 mg PO BID 03/11/19 [History] Metoprolol Tartrate 50 mg PO BID 03/11/19 [History] Prevagen 1 cap PO DAILY 03/11/19 [History] Sucralfate [Carafate] 1 gm PO TID 03/11/19 [History] Allergy/AdvReac Type Severity Reaction Status Date / Time RODGER Inhibitors AdvReac See Verified 03/11/19 10:31 Comments ampicillin AdvReac See Verified 03/11/19 10:31 Comments lisinopril AdvReac See Verified 03/11/19 10:31 Comments tetracycline [Tetracycline] AdvReac See Verified 03/11/19 10:31 Comments Hospitalist - CN: Exam - Constitutional Vitals: Temp Pulse Resp BP Pulse Ox 99.7 F H 87 16 153/79 97 03/12/19 06:51 03/12/19 06:51 03/12/19 06:51 03/12/19 06:51 03/12/19 06:51 Exam: GENERAL: Alert, but lethargic EYES: PERRLA, EOMI EARS: External ears normal, canals clear OROPHARYNX: Lips, mucosa, and tongue normal. Teeth and gums normal. Oropharynx normal. NECK: No jugulovenous distention, No carotid bruits, Carotid pulse normal contour, Supple LUNGS: Lungs clear to auscultation, Good diaphragmatic excursion CARDIAC: Normal S1 and S2; no rubs, murmurs, or gallops ABDOMEN: Abdomen soft, non-tender, BS normal, No masses or organomegaly BACK -right-sided PCNL site bandaged EXTREMITIES: Extremities normal, no deformities, edema, clubbing or skin discoloration. Good capillary refill., No ulcers NEURO: Reflexes normal and symmetric. Sensation grossly intact, Cranial nerves II-XII intact PULSES: 2+ radial, 2+ carotid Rest of the exam is non contributory Internal Medicine - CN: Reslt - Labs CBC & Chem 7: 03/12/19 03:20 03/12/19 08:15 Labs: Short CBC 03/11/19 03/12/19 Range/Units 10:32 03:20 WBC 1.5 L 1.5 L (4.3-11.1) K/mcL Hgb 10.5 L 11.5 (11.5-15.4) g/dL Hct 33.1 L 37.2 (35.3-44.9) % Plt Count 201 200 (140-400) K/mcL Neutrophils # 0.2 L 0.3 L (1.6-8.9) K/mcL BMP 03/12/19 08:15 Sodium 137 Potassium 4.0 Chloride 103 Carbon Dioxide 28 BUN 17 Creatinine 1.05 Glucose 167 H Calcium 9.1 Reviewed the prior microbiology results from recent discharge - ABG Interpretation ABG results: PT/INR, D-dimer PT 13.2 Seconds (9.4-12.1) H 03/12/19 03:20 - Impressions Impressions Nephrostomy 03/11/19 00:00 IMPRESSION: 1. Right ureteropelvic junction calculus. 2. Successful placement of a right nephroureteral catheter. She is to undergo tract dilatation and nephrolithotomy. D/ / Og Salcido MD / Og Salcido MD Interpreting Provider: Og Salcido MD Percutaneous Antegrade Pyelogram 03/11/19 15:45 IMPRESSION: Intraprocedural fluoroscopic spot images as above. See separate procedure report for more information. D/ / Hector Gold / Hector Gold Interpreting Provider: Hector Gold Chest X-Ray 03/11/19 17:29 IMPRESSION: No acute cardiopulmonary disease. D/ / 03/11/2019 17:47:04 Manjinder Nicolas MD / rashad Interpreting Provider: Manjinder Nicolas MD Consult Discharge Plan - Plan Referrals: Philippe Scott Jr, MD [Primary Care Provider] - Juan Manuel Elizabeth MD [Partnered Physician] -
[2019-03-12] MEDS: *HR* HYDROcodone/Acet 5/325 mg TABLET PO PRN ×2 (12:30→22:25)
--- NOTE | 2019-03-12 17:01 | Urology Progress Note ---
Date of Encounter: 03/12/19 Time of Encounter: 16:59 - Assessment and Plan (1) Renal stone Current Visit: Yes Status: Resolved Assessment and plan: The low urine output from the Hopkins catheter is unusual. It appears all of her urine output is from her nephrostomy tube as she has not drank much fluids and her IV fluids are running at 75 mL an hour. The 800 mL she has had out of her nephrostomy today would be equivalent in appropriate urine output. I suspect that urine produced from the left kidney is refluxing up the stent and out the nephrostomy tube rather than coming out the Hopkins catheter. We will recheck renal function in the morning. I do not feel imaging is required tonight Progress Note Narrative: t states she feels fine. not drinking a lot but no nausea. Objective Initial Vital Signs Temp Pulse Resp BP Pulse Ox 98.2 F 60 18 151/70 97 03/11/19 09:35 03/11/19 09:35 03/11/19 09:35 03/11/19 09:35 03/11/19 09:35 - Additional Exam irrigated cath bc low UO. irrigated easily. no clots. - Labs 03/12/19 03:20 03/12/19 08:15 Diabetes panel 03/12/19 Range/Units 08:15 Sodium 137 (136-145) mEq/L Potassium 4.0 (3.5-5.1) mEq/L Chloride 103 (98-107) mEq/L Carbon Dioxide 28 (23-29) mEq/L BUN 17 (8-23) mg/dL Creatinine 1.05 (0.60-1.20) mg/dL Glucose 167 H (70-105) mg/dL Calcium 9.1 (8.6-10.3) mg/dL Calcium panel 03/12/19 Range/Units 08:15 Calcium 9.1 (8.6-10.3) mg/dL Pituitary panel 03/12/19 Range/Units 08:15 Sodium 137 (136-145) mEq/L Potassium 4.0 (3.5-5.1) mEq/L Chloride 103 (98-107) mEq/L Carbon Dioxide 28 (23-29) mEq/L BUN 17 (8-23) mg/dL Creatinine 1.05 (0.60-1.20) mg/dL Glucose 167 H (70-105) mg/dL Calcium 9.1 (8.6-10.3) mg/dL Adrenal panel 03/12/19 Range/Units 08:15 Sodium 137 (136-145) mEq/L Potassium 4.0 (3.5-5.1) mEq/L Chloride 103 (98-107) mEq/L Carbon Dioxide 28 (23-29) mEq/L BUN 17 (8-23) mg/dL Creatinine 1.05 (0.60-1.20) mg/dL Glucose 167 H (70-105) mg/dL Calcium 9.1 (8.6-10.3) mg/dL Consult Discharge Plan - Plan Referrals: Philippe Scott Jr, MD [Primary Care Provider] - Juan Manuel Elizabeth MD [Partnered Physician] -
[2019-03-12] MEDS: 0.9 % Sodium Chloride 1,000 ML IVC SCH (17:11)
[2019-03-12 17:58] LABS: Bilirubin,Urine Moderate (Negative); Blood,Urine Large (Negative); Clarity,Urine Turbid (Clear); Color,Urine Red (Yellow); Glucose,Urine (UA) Normal (Normal); Ketones,Urine Trace mg/dL (Negative); Leukocyte Esterase,Urine Moderate (Negative); Nitrite,Urine Negative (Negative); Protein,Urine >=300 mg/dL (Neg-Trace); Urobilinogen,Urine Normal (Normal)
[2019-03-12 18:00] LABS: Bacteria,Urine None Seen per hpf (None-Few); Hyaline Casts,Urine None Seen per lpf (None-Few); Squamous Epithelial Cell,Urine Many per lpf (None-Few); WBC,Urine TNTC per hpf (0-3)
[2019-03-12 18:27] LABS: RBC,Urine TNTC per hpf (0-3)
[2019-03-13] MEDS: 0.9 % Sodium Chloride 1,000 ML IVC SCH (04:44)
--- NOTE | 2019-03-13 07:08 | Urology Progress Note ---
Date of Encounter: 03/13/19 Time of Encounter: 07:06 - Assessment and Plan (1) Renal stone Current Visit: Yes Status: Resolved Assessment and plan: Rechecking labs this morning. Fevers have trended down since changing antibiotics. We will remove nephrostomy tube and Hopkins catheter prior to discharge. Appreciate hospitalist and hematology recs Progress Note Subjective: feels better Objective Initial Vital Signs Temp Pulse Resp BP Pulse Ox 98.2 F 60 18 151/70 97 03/11/19 09:35 03/11/19 09:35 03/11/19 09:35 03/11/19 09:35 03/11/19 09:35 - General physical appearance Present: no distress - Additional Exam Hopkins catheter is draining some urine now and is clear Nephrostomy tube is very light hematuria - Labs 03/12/19 03:20 03/12/19 08:15 Diabetes panel 03/12/19 Range/Units 08:15 Sodium 137 (136-145) mEq/L Potassium 4.0 (3.5-5.1) mEq/L Chloride 103 (98-107) mEq/L Carbon Dioxide 28 (23-29) mEq/L BUN 17 (8-23) mg/dL Creatinine 1.05 (0.60-1.20) mg/dL Glucose 167 H (70-105) mg/dL Calcium 9.1 (8.6-10.3) mg/dL Calcium panel 03/12/19 Range/Units 08:15 Calcium 9.1 (8.6-10.3) mg/dL Pituitary panel 03/12/19 Range/Units 08:15 Sodium 137 (136-145) mEq/L Potassium 4.0 (3.5-5.1) mEq/L Chloride 103 (98-107) mEq/L Carbon Dioxide 28 (23-29) mEq/L BUN 17 (8-23) mg/dL Creatinine 1.05 (0.60-1.20) mg/dL Glucose 167 H (70-105) mg/dL Calcium 9.1 (8.6-10.3) mg/dL Adrenal panel 03/12/19 Range/Units 08:15 Sodium 137 (136-145) mEq/L Potassium 4.0 (3.5-5.1) mEq/L Chloride 103 (98-107) mEq/L Carbon Dioxide 28 (23-29) mEq/L BUN 17 (8-23) mg/dL Creatinine 1.05 (0.60-1.20) mg/dL Glucose 167 H (70-105) mg/dL Calcium 9.1 (8.6-10.3) mg/dL - VTE Documentation of Mechanical Device: Venous foot pump, device Consult Discharge Plan - Plan Referrals: Philippe Scott Jr, MD [Primary Care Provider] - Juan Manuel Elizabeth MD [Partnered Physician] -
[2019-03-13 07:50] LABS: Eosinophils # 0.1 K/mcL (0.0-0.6); Hematocrit 27.8 % (35.3-44.9); Hemoglobin 8.9 g/dL (11.5-15.4); Mean Corpuscular Hemoglobin 30.6 pg (28.0-33.3); Mean Corpuscular Volume 95.5 fL (83.0-100.0); Mean Platelet Volume 10.4 fL (9.4-12.4); Platelet Count 157 K/mcL (140-400); Red Blood Count 2.91 M/mcL (3.82-4.97); Red Cell Distribution Width 14.7 % (11.5-14.5)
[2019-03-13 08:10] LABS: BUN/Creatinine Ratio 13 (6-26); Blood Urea Nitrogen 11 mg/dL (8-23); Calcium 8.6 mg/dL (8.6-10.3); Carbon Dioxide 24 mEq/L (23-29); Chloride 105 mEq/L (98-107); Glucose 162 mg/dL (70-105); Osmolality,Calculated 285 (280-300); Potassium 3.4 mEq/L (3.5-5.1); Sodium 136 mEq/L (136-145); eGFR For Non-African Americans > 60 (> 60)
[2019-03-13 08:26] LABS: Lymphocytes # 0.6 K/mcL (0.6-4.6); Monocytes # 0.3 K/mcL (0.0-1.3); Neutrophils # 0.5 K/mcL (1.6-8.9)
[2019-03-13 08:27] LABS: Anisocytosis 1+ (Not Present); Platelet Estimate Normal (Normal)
[2019-03-13] MEDS ORDERED: NON-FORMULARY MEDICATION 1 EACH EACH (Amlodipine Besylate 10 MG) PO SCH (09:00)
[2019-03-13] MEDS ORDERED: Ertapenem 1,000 MG in 0.9 % Sodium Chloride Mini Bag 100 ML IVPB SCH (09:00)
--- NOTE | 2019-03-13 10:44 | Oncology Inp Progress Note ---
<Chitra Harris - Last Filed: 03/13/19 16:28> Date of Encounter: 03/13/19 Time of Encounter: 10:00 (1) Chronic neutropenia Current Visit: No Status: Acute Assessment and plan: Chronic neutropenia dating back to at least 2000. Neutropenia is quite severe. She appeared to have been doing well from an infectious standpoint despite her neutropenia until around October,. According to outpatient clinic notes, she was noted to have recurrent UTI infections around this time and was utilizing neupogen at nursing facility. She has not followed up outpatient since then. Most recently, her denies issues with recurrent infections. She was previously evaluated at [facility] with myeloid sequencing panel to search for any mutations that could be driving the cytopenia. Her sequencing panel was negative. 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 Admitted for nephrolithiasis status post right PCNL with removal of 2.1 cm stone 03/11/2019 and she was noted to have a low grade fever overnight (TMAX 99.9) with altered mental status this AM and started on broad spectrum ATB coverage for both organisms from last culture 02/06/2019 (Escherichia coli and Proteus mirabilis) Currently on ertapenem, in the case of stone removal there is concern for increased bacterial load in the urine for a significant amount of time Plan: ANC improved to 500 today, TMAX 99.8 in past 24 hours Urine cx and blood cx pending Specific treatment for her autoimmune neutropenia is generally not required, however, in the setting of suspected infection/high risk for infection s/p PCNL, we will order neupogen 480 mcg/daily until ANC >1.5 Continue with current treatment plan Oncology: Subj Interval history: Ms. Hardy is sitting in her chair, she is rrequesting to be helped back to bed. She appears agitated and not very conversant this morning, but much more alert and oriented today. She reports feeling uncomfortable 2/2 her catheter. Denies nausea, vomiting, diarrhea, constipation, abdominal pain, pain otherwise, SOB, fever or chill. - Constitutional General appearance: cooperative, no acute distress, no febrile - Head Head exam: Present: atraumatic - ENT ENT exam: Present: mucous membranes dry, normal oropharynx - Respiratory Respiratory exam: Present: CTAB. Absent: respiratory distress - Cardiovascular Cardiovascular exam: Present: RRR - GI/Abdominal GI/Abdominal exam: Present: normal bowel sounds, soft. Absent: tenderness - Additional comments: Right nephrostomy and ramos catheter with dark colored urine - Extremities Exam Extremities exam: Present: normal inspection. Absent: calf tenderness - Neurological Exam Neurological exam: Present: alert, oriented X3, no focal deficits, strengths equal and symetr throughout - Psychiatric Psychiatric exam: Present: agitated - Skin Skin exam: Present: dry, pallor, warm Oncology: Obj Data - Labs CBC & Chem 7: 03/13/19 07:24 03/13/19 07:24 Consult Discharge Plan - Plan Referrals: Philippe Scott Jr, MD [Primary Care Provider] - Juan Manuel Elizabeth MD [Partnered Physician] - Inpatient Charges Provider: Dr. Walt Ureña <Eulogio Ureña - Last Filed: 03/13/19 21:43> Date of Encounter: 03/13/19 Oncology: Obj Data - Labs CBC & Chem 7: 03/13/19 07:24 03/13/19 07:24 Inpatient Charges Provider: Dr. Walt Ureña Follow up - Inpatient: [id number] - Attending Attestation I examined this patient and my medical decision-making was reviewed with the Advanced Practice Nurse. I agree with the documented findings, disposition and treatment plan as described except to the extent set forth below. She remains intermittently confused. Answered questions appropriately for person, place but could not name president or date. She is feeling ok. No pain. ANC has increased modestly. Continue neupogen for chronic, autoimmune neutropenia. Goal ANC 1500. Continue supportive measures. No new recommendations.
[2019-03-13] MEDS: Insulin LISPRO 300 UNITS/3 ML VIAL SQ SCH ×4 (10:53→21:51)
[2019-03-13] MEDS: Magnesium Oxide 400 MG TABLET PO SCH ×2 (10:58→20:19)
[2019-03-13] MEDS: Sucralfate 1 GM TABLET PO SCH ×2 (10:58→17:04)
[2019-03-13] MEDS: amLODIPine 5 MG TABLET PO SCH ×2 (10:58→11:31)
[2019-03-13] MEDS: FLUoxetine 20 MG CAPSULE PO SCH (10:58)
[2019-03-13] MEDS: *HR* HYDROcodone/Acet 5/325 mg TABLET PO PRN (12:26)
[2019-03-13 12:27] LABS: Folate 21.2 ng/mL (3.0-16.0)
[2019-03-13 12:28] LABS: Ferritin 171 ng/mL (10-120); Iron < 10 mcg/dL (50-170); Lactate Dehydrogenase 86 Units/L (140-271); Transferrin 152 mg/dL (203-362)
--- NOTE | 2019-03-13 13:32 | Internal Med Progress Note ---
Hospitalist Progress Note - Encounter Date of Encounter: 03/13/19 Time of Encounter: 13:31 - Subjective Interval History: Pt has baseline dmeentia and I talked to the , it been for couple years and it has good days and bad days, hsuband wanst no code. - Exam Vitals: Temp Pulse Resp BP Pulse Ox 98.6 F 104 16 156/73 96 03/13/19 10:00 03/13/19 10:00 03/13/19 10:00 03/13/19 10:00 03/13/19 10:00 Exam: GENERAL: Alert, but lethargic EYES: PERRLA, EOMI EARS: External ears normal, canals clear OROPHARYNX: Lips, mucosa, and tongue normal. Teeth and gums normal. Oropharynx normal. NECK: No jugulovenous distention, No carotid bruits, Carotid pulse normal c ontour, Supple LUNGS: Lungs clear to auscultation, Good diaphragmatic excursion CARDIAC: Normal S1 and S2; no rubs, murmurs, or gallops ABDOMEN: Abdomen soft, non-tender, BS normal, No masses or organomegaly BACK -right-sided PCNL site bandaged EXTREMITIES: Extremities normal, no deformities, edema, clubbing or skin discoloration. Good capillary refill., No ulcers NEURO: Reflexes normal and symmetric. Sensation grossly intact, Cranial nerves II-XII intact PULSES: 2+ radial, 2+ carotid Rest of the exam is non contributory - Summary of Assessment and Plan Summary of Assessment and Plan: This is a 78 yof whome medicien been consutled for sepsis 1) sepsis: tachycardai, neutropenia in the setting of pyelo At this point, we will cont meopenem and await final sensity of hte urine, last one I saw had too many epithelial cells. Meanwhile, pt is afebrile at elast, pt is getting neuopeng which should help. 2) metabolic encephlopahty: pt is at base line after talking to hsuband, will avoid high dose opoids or other psychtropic meds 3) All other issues: deffered to oncology and primary. 4) we will follow with you Time: 35 min - Time Spent with Patient Total time spent is greater than 50% in coordination of care (as documented) at patient's floor/unit and/or counseling patient: Internal Medicine: Result - Labs CBC & Chem 7: 03/13/19 07:24 03/13/19 07:24 Labs: Short CBC 03/13/19 Range/Units 07:24 WBC 1.4 L (4.3-11.1) K/mcL Hgb 8.9 L D (11.5-15.4) g/dL Hct 27.8 L (35.3-44.9) % Plt Count 157 (140-400) K/mcL Neutrophils # 0.5 L (1.6-8.9) K/mcL BMP 03/13/19 07:24 Sodium 136 Potassium 3.4 L Chloride 105 Carbon Dioxide 24 BUN 11 Creatinine 0.86 Glucose 162 H Calcium 8.6 Urine 03/12/19 Range/Units 16:43 Urine Color Red A (Yellow) Urine Clarity Turbid A (Clear) Urine pH 6.0 (5.0-8.0) pH Units Ur Specific [place] 1.020 (1.010-1.025) Urine Protein >=300 H (Neg-Trace) mg/dL Urine Glucose (UA) Normal (Normal) mg/dL - ABG Interpretation ABG results: PT/INR, D-dimer PT 13.2 Seconds (9.4-12.1) H 03/12/19 03:20 - Impressions Impressions Chest X-Ray 03/13/19 10:54 IMPRESSION: No acute cardiopulmonary process identified. D/ / Gunnar De La Rosa MD / Gunnar De La Rosa MD Interpreting Provider: Gunnar De La Rosa MD - VTE Documentation of Mechanical Device: Venous foot pump, device Consult Discharge Plan - Plan Referrals: Philippe Scott Jr, MD [Primary Care Provider] - Juan Manuel Elizabeth MD [Partnered Physician] -
--- NOTE | 2019-03-13 18:05 | Event Note ---
Date of Encounter: 03/13/19 Time of Encounter: 18:04 I assessed the patient. She described no pain. Deep palpation of her abdomen caused very minimal discomfort. Although Hopkins catheter has not produced significant urine she has had adequate urine output through the nephrostomy tube. Renal function is normal. Fever has trended down. She is eating without nausea and vomiting. I elected to cancel the CT scan for this evening. a
[2019-03-14] MEDS: Insulin LISPRO 300 UNITS/3 ML VIAL SQ SCH ×4 (08:21→20:48)
[2019-03-14] MEDS: Sulfamethoxazole/Trimeth DS 1 EACH TABLET PO SCH ×2 (09:17→21:19)
[2019-03-14] MEDS: FLUoxetine 20 MG CAPSULE PO SCH (09:17)
[2019-03-14] MEDS: Magnesium Oxide 400 MG TABLET PO SCH ×2 (09:17→21:19)
[2019-03-14] MEDS: Sucralfate 1 GM TABLET PO SCH ×3 (09:18→17:38)
[2019-03-14] MEDS: amLODIPine 5 MG TABLET PO SCH (09:18)
--- NOTE | 2019-03-14 09:36 | Urology Progress Note ---
Date of Encounter: 03/14/19 Time of Encounter: 08:15 - Assessment and Plan (1) Renal stone Current Visit: Yes Status: Resolved Assessment and plan: Patient is a 78-year-old female who presents 3 days status post right PCNL, stone size 2.1 cm, dilation of nephrostomy tract, nephrostogram, antegrade JJ stent placement, nephrostomy tube placement. Nephrostomy tube removed successfully. Patient has indwelling stent and Hopkins catheter in place. Vital signs are stable and afebrile. Repeat CBC is pending. Patient is receiving Neupogen for neutropenia and must continue until ANC is greater than 1.5. Patient may be discharged to SNF from a urology standpoint. Discussed Neupogen with floor pharmacist. Social work input is appreciated, as I will place a referral for discharge to SNF with orders to complete Neupogen. public welfare worker may need to verify SNF is willing to give this injection due to expense, otherwise patient may have to stay in patient to receive the medication. Progress Note Subjective: no new complaints, feels better Narrative: Patient seen and examined sitting upright in bed eating breakfast in no apparent distress. Patient is tolerating normal diet without nausea or vomiting. Hopkins catheter is indwelling and draining transparent, dark yellow urine into bedside bag. Nephrostomy tube indwelling and draining transparent, dark yellow urine. Patient denies any fever or chills. Objective Initial Vital Signs Temp Pulse Resp BP Pulse Ox 98.2 F 60 18 151/70 97 03/11/19 09:35 03/11/19 09:35 03/11/19 09:35 03/11/19 09:35 03/11/19 09:35 - General physical appearance Present: no distress, no pain - Respiratory Present: normal expansion, normal respiratory effort - Abdomen Present: soft, non tender - Genitourinary Urine Appearance: Present: Clear - Integumentary Present: no rash, no abnormal pigmentation - Musculoskeletal Present: normal posture - Psychiatric Present: oriented to time, oriented to person, oriented to place, speech is normal, memory intact - Labs 03/13/19 07:24 03/13/19 07:24 - VTE Documentation of Mechanical Device: Venous foot pump, device Consult Discharge Plan - Plan Referrals: Philippe Scott Jr, MD [Primary Care Provider] - Juan Manuel Elizabeth MD [Partnered Physician] -
--- NOTE | 2019-03-14 09:46 | Physician Discharge Referral ---
ExtendedCare Referral Info Transfer To: [facility] Provider in Charge: Juan Manuel Elizabeth MD Provider in Charge after Transfer: PCP Institutional Level of Care: Skilled - Diagnosis (1) Renal stone Priority: Primary Status: Resolved Expected Duration of Placement: 10-14 days Prognosis: Good Aware of Diagnosis: Patient Aware of Prognosis: Patient - Transfer Medications Prescriptions: Sulfamethoxazole/Trimeth DS [Bactrim DS] 1 each PO BID 14 Days #28 tablet Docusate [Colace] 100 mg PO BID #30 capsule HYDROcodone/Acet 5/325 mg [[place] 5-325 mg] 1 tab PO Q6H PRN 2 Days #8 tab PRN Reason: Pain Home Medications: Aspirin 81 mg PO DAILY 10/02/17 [History] FLUoxetine HCl [Fluoxetine HCl] 40 mg PO DAILY 10/02/17 [History] Glimepiride [Amaryl] 4 mg PO DAILY 10/02/17 [History] Metformin HCl [Glucophage] 1,000 mg PO BID 10/02/17 [History] Omeprazole [PriLOSEC] 20 mg PO DAILY 10/02/17 [History] Potassium Chloride [K-Tab ER] 20 meq PO DAILY 10/02/17 [History] Amlodipine Besylate 10 mg PO DAILY 03/11/19 [History] Magnesium Oxide [Magnesium] 400 mg PO BID 03/11/19 [History] Metoprolol Tartrate 50 mg PO BID 03/11/19 [History] Prevagen 1 cap PO DAILY 03/11/19 [History] Sucralfate [Carafate] 1 gm PO TID 03/11/19 [History] Docusate [Colace] 100 mg PO BID capsule 03/13/19 [Rx] Omeprazole [PriLOSEC] 20 mg PO 0630 capsule. 03/13/19 [Rx] Oxybutynin [Ditropan] 5 mg PO TID PRN tablet 03/13/19 [Rx] amLODIPine [Norvasc] 5 mg PO DAILY tablet 03/13/19 [Rx] Docusate [Colace] 100 mg PO BID #30 capsule 03/14/19 [Rx] HYDROcodone/Acet 5/325 mg [[place] 5-325 mg] 1 tab PO Q6H PRN 2 Days #8 tab 03/14/19 [Rx] Sulfamethoxazole/Trimeth DS [Bactrim DS] 1 each PO BID 14 Days #28 tablet 03/14/19 [Rx] Allergies/Adverse Reactions: Allergy/AdvReac Type Severity Reaction Status Date / Time RODGER Inhibitors AdvReac See Verified 03/11/19 10:31 Comments ampicillin AdvReac See Verified 03/11/19 10:31 Comments lisinopril AdvReac See Verified 03/11/19 10:31 Comments tetracycline [Tetracycline] AdvReac See Verified 03/11/19 10:31 Comments - Respiratory Orders None Smoking Cessation: Smoking cessation has been advised. For more information, call the [place] Tobacco Quit Line at 9-061-RZGL-NOW. - Lab Orders Lab Orders: CBC - Advance Directives Living Will: Yes Power of Pedicurist for Health Care: Yes Code Status: DNR-Arrest - Mobility Orders Chair, Ambulate (Ambulate daily with PT/OT) - Rehabiliation Orders Rehab Potential: Good Rehab Orders: Evaluation for Physical Therapy, Evaluation for Occupational Therapy Other: Patient will require complete blood counts daily for Neupogen treatment for neutropenia. - Treatments List/Other: Flank wound dressing changes 3 times daily. Provide catheter care if indicated. - Diet Orders Regular CERTIFICATION: I certify that the transfer of the above named patient to an Extended Care Facility is necessary for the continuing treatment of the diagnosis listed. The above information is true and accurate reflection of patient's current condition. Confidential - Redisclosure prohibited without a patient's written consent.
[2019-03-14 09:54] LABS: Hematocrit 27.7 % (35.3-44.9); Hemoglobin 8.6 g/dL (11.5-15.4); Mean Corpuscular Hemoglobin 29.9 pg (28.0-33.3); Mean Corpuscular Volume 96.2 fL (83.0-100.0); Mean Platelet Volume 10.4 fL (9.4-12.4); Monocytes # 0.5 K/mcL (0.0-1.3); Platelet Count 159 K/mcL (140-400); Red Blood Count 2.88 M/mcL (3.82-4.97); Red Cell Distribution Width 14.7 % (11.5-14.5)
[2019-03-14 10:45] LABS: Eosinophils # 0.1 K/mcL (0.0-0.6); Lymphocytes # 0.6 K/mcL (0.6-4.6); Neutrophils # 1.1 K/mcL (1.6-8.9); Platelet Estimate Normal (Normal)
--- NOTE | 2019-03-14 12:58 | Oncology Inp Progress Note ---
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 Neutropenia is quite severe. She appeared to have been doing well from an infectious standpoint despite her neutropenia until around October,. According to outpatient clinic notes, she was noted to have recurrent UTI infections around this time and was utilizing neupogen at nursing facility. She has not followed up outpatient since then. Most recently, her denies issues with recurrent infections. She was previously evaluated at [facility] with myeloid sequencing panel to search for any mutations that could be driving the cytopenia. Her sequencing panel was negative. 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 Admitted for nephrolithiasis status post right PCNL with removal of 2.1 cm stone 03/11/2019 and she was noted to have a low grade fever overnight (TMAX 99.9) with altered mental status this AM and started on broad spectrum ATB coverage for both organisms from last culture 02/06/2019 (Escherichia coli and Proteus jodi abilis) Ertapenum changed to Bactrim starting today Plan: ANC improved to 1100 today, TMAX 99.6 in past 24 hours Urine cx is showing gram negative rods with final report still pending, in addition to this her procalcitonin has resulted elevated 0.24 Specific treatment for her autoimmune neutropenia is generally not required, however, in the setting of suspected infection/high risk for infection s/p PCNL, we will order neupogen 480 mcg/daily until ANC >1.5 Continue with current treatment plan Oncology: Subj Interval history: Ms. Hardy is resting in her chair. She was assisted to get back into bed. She denies pain other than discomfort from her urinary catheter. She denies nausea, vomiting, SOB, chest pain, diarrhea or constipation. No fevers/chills. TMAX overnight 99.6. - Constitutional General appearance: cooperative, no acute distress, no febrile - Head Head exam: Present: atraumatic - ENT ENT exam: Present: mucous membranes moist, normal oropharynx - Respiratory Respiratory exam: Present: CTAB. Absent: respiratory distress - Cardiovascular Cardiovascular exam: Present: RRR - GI/Abdominal GI/Abdominal exam: Present: normal bowel sounds, soft. Absent: tenderness - Back Exam Additional comments: gauze dressing to right flank dry and intact s/p nephrostomy removal - Neurological Exam Neurological exam: Present: alert, no focal deficits, strengths equal and symetr throughout Additional comments: oriented to person and place - Psychiatric Psychiatric exam: Present: flat affect - Skin Skin exam: Present: dry, intact, normal color, warm Oncology: Obj Data - Labs CBC & Chem 7: 03/14/19 09:23 03/13/19 07:24 Consult Discharge Plan - Plan Referrals: Philippe Scott Jr, MD [Primary Care Provider] - Juan Manuel Elizabeth MD [Partnered Physician] - Prescriptions: Sulfamethoxazole/Trimeth DS [Bactrim DS] 1 each PO BID 14 Days #28 tablet Docusate [Colace] 100 mg PO BID #30 capsule HYDROcodone/Acet 5/325 mg [[place] 5-325 mg] 1 tab PO Q6H PRN 2 Days #8 tab PRN Reason: Pain Inpatient Charges Provider: Dr. Walt Conway
[2019-03-14] MEDS: Cyanocobalamin (B-12) 1,000 MCG/ML VIAL SQ SCH (13:13)
--- NOTE | 2019-03-14 13:16 | Internal Med Progress Note ---
Hospitalist Progress Note - Encounter Date of Encounter: 03/14/19 Time of Encounter: 13:16 - Subjective Interval History: pt is still confused - Exam Vitals: Temp Pulse Resp BP Pulse Ox 98.6 F 61 16 131/62 100 03/14/19 12:17 03/14/19 12:17 03/14/19 12:17 03/14/19 12:17 03/14/19 12:17 Exam: GENERAL: Alert, but lethargic EYES: PERRLA, EOMI EARS: External ears normal, canals clear OROPHARYNX: Lips, mucosa, and tongue normal. Teeth and gums normal. Oropharynx n ormal. NECK: No jugulovenous distention, No carotid bruits, Carotid pulse normal contour, Supple LUNGS: Lungs clear to auscultation, Good diaphragmatic excursion CARDIAC: Normal S1 and S2; no rubs, murmurs, or gallops ABDOMEN: Abdomen soft, non-tender, BS normal, No masses or organomegaly BACK -right-sided PCNL site bandaged EXTREMITIES: Extremities normal, no deformities, edema, clubbing or skin discoloration. Good capillary refill., No ulcers NEURO: Reflexes normal and symmetric. Sensation grossly intact, Cranial nerves II-XII intact PULSES: 2+ radial, 2+ carotid Rest of the exam is non contributory - Summary of Assessment and Plan Summary of Assessment and Plan: This is a 78 yof whome medicien been consutled for sepsis 1) sepsis: tachycardai, neutropenia in the setting of pyelo At this point, we will cont meopenem and await final sensity of hte urine, last one I saw had too many epithelial cells. Meanwhile, pt is afebrile at elast, pt is getting neuopeng which should help. It is resolving today. Pt looks better, will switch to PO bactrim to see how pt does. 2) metabolic encephlopahty: pt is at base line after talking to hsuband, will avoid high dose opoids or other psychtropic meds 3) All other issues: deffered to oncology and primary. 4) we will follow with you Time: 35 min - Time Spent with Patient Total time spent is greater than 50% in coordination of care (as documented) at patient's floor/unit and/or counseling patient: Internal Medicine: Result - Labs CBC & Chem 7: 03/14/19 09:23 03/13/19 07:24 Labs: Short CBC 03/14/19 Range/Units 09:23 WBC 2.3 L D (4.3-11.1) K/mcL Hgb 8.6 L (11.5-15.4) g/dL Hct 27.7 L (35.3-44.9) % Plt Count 159 (140-400) K/mcL Neutrophils # 1.1 L (1.6-8.9) K/mcL - ABG Interpretation ABG results: PT/INR, D-dimer PT 13.2 Seconds (9.4-12.1) H 03/12/19 03:20 - VTE Documentation of Mechanical Device: Venous foot pump, device Consult Discharge Plan - Plan Referrals: Philippe Scott Jr, MD [Primary Care Provider] - Juan Manuel Elizabeth MD [Partnered Physician] - Prescriptions: Sulfamethoxazole/Trimeth DS [Bactrim DS] 1 each PO BID 14 Days #28 tablet Docusate [Colace] 100 mg PO BID #30 capsule HYDROcodone/Acet 5/325 mg [[place] 5-325 mg] 1 tab PO Q6H PRN 2 Days #8 tab PRN Reason: Pain
[2019-03-14] MEDS: *HR* HYDROcodone/Acet 5/325 mg TABLET PO PRN (21:19)
[2019-03-15 05:52] LABS: Eosinophils # 0.5 K/mcL (0.0-0.6); Hematocrit 26.7 % (35.3-44.9); Hemoglobin 8.4 g/dL (11.5-15.4); Mean Corpuscular HGB Conc 31.5 g/dL (31.6-35.5); Mean Corpuscular Hemoglobin 30.3 pg (28.0-33.3); Mean Corpuscular Volume 96.4 fL (83.0-100.0); Mean Platelet Volume 10.5 fL (9.4-12.4); Platelet Count 161 K/mcL (140-400); Red Blood Count 2.77 M/mcL (3.82-4.97); Red Cell Distribution Width 14.8 % (11.5-14.5)
[2019-03-15 06:13] LABS: Albumin 2.5 g/dL (3.5-5.7); Albumin/Globulin Ratio 0.8 (1.1-2.2); Bilirubin,Total 0.3 mg/dL (0.3-1.0); Calcium 8.5 mg/dL (8.6-10.3); Potassium 4.3 mEq/L (3.5-5.1); Total Protein 5.5 g/dL (6.4-8.9)
[2019-03-15 06:19] LABS: Basophils # 0.1 K/mcL (0.0-0.2); Monocytes # 0.2 K/mcL (0.0-1.3); Neutrophils # 1.1 K/mcL (1.6-8.9); Platelet Estimate Normal (Normal)
[2019-03-15] MEDS: Magnesium Oxide 400 MG TABLET PO SCH ×2 (07:37→20:09)
[2019-03-15] MEDS: amLODIPine 5 MG TABLET PO SCH (07:37)
[2019-03-15] MEDS: Sucralfate 1 GM TABLET PO SCH ×3 (07:37→16:21)
[2019-03-15] MEDS: Sulfamethoxazole/Trimeth DS 1 EACH TABLET PO SCH ×2 (07:37→20:09)
[2019-03-15] MEDS: FLUoxetine 20 MG CAPSULE PO SCH (07:38)
[2019-03-15] MEDS: Cyanocobalamin (B-12) 1,000 MCG/ML VIAL SQ SCH (07:38)
[2019-03-15] MEDS: Insulin LISPRO 300 UNITS/3 ML VIAL SQ SCH ×4 (07:44→20:16)
--- NOTE | 2019-03-15 08:45 | Urology Progress Note ---
Date of Encounter: 03/15/19 Time of Encounter: 08:44 - Assessment and Plan (1) Renal stone Current Visit: Yes Status: Resolved Assessment and plan: Waiting for her absolute neutrophil count to reach 1.5. It did not increase today and remains at 1.1. White blood cell count did increase to 2.9. Otherwise patient is ready for discharge. Continue catheter and IV antibiotics for now Progress Note Narrative: Patient remained stable. No acute issues overnight Objective Initial Vital Signs Temp Pulse Resp BP Pulse Ox 98.2 F 60 18 151/70 97 03/11/19 09:35 03/11/19 09:35 03/11/19 09:35 03/11/19 09:35 03/11/19 09:35 - General physical appearance Present: no distress - Additional Exam No major drainage from her [place] after nephrostomy tube removal Hopkins catheter draining clear urine - Labs 03/15/19 04:00 03/15/19 04:00 Diabetes panel 03/15/19 Range/Units 04:00 Sodium 135 L (136-145) mEq/L Potassium 4.3 (3.5-5.1) mEq/L Chloride 106 (98-107) mEq/L Carbon Dioxide 24 (23-29) mEq/L BUN 17 (8-23) mg/dL Creatinine 1.16 (0.60-1.20) mg/dL Glucose 101 (70-105) mg/dL Calcium 8.5 L (8.6-10.3) mg/dL AST 14 (13-39) Units/L ALT 10 (7-52) Units/L Alkaline Phosphatase 66 (34-104) Units/L Albumin 2.5 L (3.5-5.7) g/dL Calcium panel 03/15/19 Range/Units 04:00 Calcium 8.5 L (8.6-10.3) mg/dL Albumin 2.5 L (3.5-5.7) g/dL Pituitary panel 03/15/19 Range/Units 04:00 Sodium 135 L (136-145) mEq/L Potassium 4.3 (3.5-5.1) mEq/L Chloride 106 (98-107) mEq/L Carbon Dioxide 24 (23-29) mEq/L BUN 17 (8-23) mg/dL Creatinine 1.16 (0.60-1.20) mg/dL Glucose 101 (70-105) mg/dL Calcium 8.5 L (8.6-10.3) mg/dL Adrenal panel 03/15/19 Range/Units 04:00 Sodium 135 L (136-145) mEq/L Potassium 4.3 (3.5-5.1) mEq/L Chloride 106 (98-107) mEq/L Carbon Dioxide 24 (23-29) mEq/L BUN 17 (8-23) mg/dL Creatinine 1.16 (0.60-1.20) mg/dL Glucose 101 (70-105) mg/dL Calcium 8.5 L (8.6-10.3) mg/dL Total Bilirubin 0.3 (0.3-1.0) mg/dL AST 14 (13-39) Units/L ALT 10 (7-52) Units/L Alkaline Phosphatase 66 (34-104) Units/L Albumin 2.5 L (3.5-5.7) g/dL - VTE Documentation of Mechanical Device: Venous foot pump, device Consult Discharge Plan - Plan Referrals: Philippe Scott Jr, MD [Primary Care Provider] - Juan Manuel Elizabeth MD [Partnered Physician] - Prescriptions: Sulfamethoxazole/Trimeth DS [Bactrim DS] 1 each PO BID 14 Days #28 tablet Docusate [Colace] 100 mg PO BID #30 capsule HYDROcodone/Acet 5/325 mg [[place] 5-325 mg] 1 tab PO Q6H PRN 2 Days #8 tab PRN Reason: Pain
--- NOTE | 2019-03-15 11:40 | Internal Med Progress Note ---
Hospitalist Progress Note - Encounter Date of Encounter: 03/15/19 Time of Encounter: 11:38 - Subjective Interval History: Pt feels OK, by bedside asked us to inform pt has pain. It seems to be that pt is very comfortable. - Exam Vitals: Temp Pulse Resp BP Pulse Ox 98.2 F 57 16 118/71 100 03/15/19 07:28 03/15/19 07:28 03/15/19 07:28 03/15/19 07:28 03/15/19 07:28 Exam: GENERAL: Alert, but lethargic EYES: PERRLA, EOMI EARS: External ears normal, canals clear OROPHARYNX: Lips, mucosa, and tongue normal. Teeth and gums normal. Oropharynx normal. NECK: No jugulovenous distention, No carotid bruits, Carotid pulse normal contour, Supple LUNGS: Lungs clear to auscultation, Good diaphragmatic excursion CARDIAC: Normal S1 and S2; no rubs, murmurs, or gallops ABDOMEN: Abdomen soft, non-tender, BS normal, No masses or organomegaly BACK -right-sided PCNL site bandaged EXTREMITIES: Extremities normal, no deformities, edema, clubbing or skin d iscoloration. Good capillary refill., No ulcers NEURO: Reflexes normal and symmetric. Sensation grossly intact, Cranial nerves II-XII intact PULSES: 2+ radial, 2+ carotid Rest of the exam is non contributory - Summary of Assessment and Plan Summary of Assessment and Plan: This is a 78 yof whome medicien been consutled for sepsis 1) sepsis: tachycardai, neutropenia in the setting of pyelo At this point, we will cont meopenem and await final sensity of hte urine, last one I saw had too many epithelial cells. Meanwhile, pt is afebrile at elast, pt is getting neuopeng which should help. Pt on PO bactrim and doing well. 2) metabolic encephlopahty: pt is at base line after talking to hsuband, will avoid high dose opoids or other psychtropic meds 3) All other issues: deffered to oncology and primary. 4) we will follow with you Time: 35 min - Time Spent with Patient Total time spent is greater than 50% in coordination of care (as documented) at patient's floor/unit and/or counseling patient: Internal Medicine: Result - Labs CBC & Chem 7: 03/15/19 04:00 03/15/19 04:00 Labs: Short CBC 03/15/19 Range/Units 04:00 WBC 2.9 L (4.3-11.1) K/mcL Hgb 8.4 L (11.5-15.4) g/dL Hct 26.7 L (35.3-44.9) % Plt Count 161 (140-400) K/mcL Neutrophils # 1.1 L (1.6-8.9) K/mcL BMP 03/15/19 04:00 Sodium 135 L Potassium 4.3 Chloride 106 Carbon Dioxide 24 BUN 17 Creatinine 1.16 Glucose 101 Calcium 8.5 L Liver Function 03/15/19 Range/Units 04:00 Total Bilirubin 0.3 (0.3-1.0) mg/dL AST 14 (13-39) Units/L ALT 10 (7-52) Units/L Alkaline Phosphatase 66 (34-104) Units/L Albumin 2.5 L (3.5-5.7) g/dL - ABG Interpretation ABG results: PT/INR, D-dimer PT 13.2 Seconds (9.4-12.1) H 03/12/19 03:20 - VTE Documentation of Mechanical Device: Venous foot pump, device Consult Discharge Plan - Plan Referrals: Philippe Scott Jr, MD [Primary Care Provider] - Juan Manuel Elizabeth MD [Partnered Physician] - Prescriptions: Sulfamethoxazole/Trimeth DS [Bactrim DS] 1 each PO BID 14 Days #28 tablet Docusate [Colace] 100 mg PO BID #30 capsule HYDROcodone/Acet 5/325 mg [[place] 5-325 mg] 1 tab PO Q6H PRN 2 Days #8 tab PRN Reason: Pain
[2019-03-15] MEDS: *HR* HYDROcodone/Acet 5/325 mg TABLET PO PRN (20:09)
[2019-03-16 03:06] LABS: Basophils # 0.1 K/mcL (0.0-0.2); Basophils % 1.4 %; Eosinophils # 0.4 K/mcL (0.0-0.6); Eosinophils % 11.8 %; Hematocrit 25.3 % (35.3-44.9); Hemoglobin 7.8 g/dL (11.5-15.4); Immature Granulocytes % 1.4 % (0-4); Mean Corpuscular HGB Conc 30.8 g/dL (31.6-35.5); Mean Corpuscular Hemoglobin 29.5 pg (28.0-33.3); Mean Corpuscular Volume 95.8 fL (83.0-100.0); Mean Platelet Volume 11.1 fL (9.4-12.4); Monocytes # 0.5 K/mcL (0.0-1.3); Monocytes % 12.6 %; Neutrophils # 1.6 K/mcL (1.6-8.9); Platelet Count 152 K/mcL (140-400); Red Blood Count 2.64 M/mcL (3.82-4.97); Red Cell Distribution Width 14.9 % (11.5-14.5); Segmented Neutrophils % 44.8 %
[2019-03-16 03:22] LABS: Albumin 2.5 g/dL (3.5-5.7); Albumin/Globulin Ratio 0.9 (1.1-2.2); Bilirubin,Total 0.2 mg/dL (0.3-1.0); Calcium 8.8 mg/dL (8.6-10.3); Globulin 2.8 g/dL (2.4-3.5); Potassium 3.9 mEq/L (3.5-5.1); Total Protein 5.3 g/dL (6.4-8.9)
[2019-03-16 03:31] LABS: Platelet Estimate Normal (Normal)
[2019-03-16] MEDS: Cyanocobalamin (B-12) 1,000 MCG/ML VIAL SQ SCH (07:28)
[2019-03-16] MEDS: Insulin LISPRO 300 UNITS/3 ML VIAL SQ SCH ×4 (07:29→21:53)
[2019-03-16] MEDS: Sucralfate 1 GM TABLET PO SCH ×3 (07:29→16:17)
[2019-03-16] MEDS: Magnesium Oxide 400 MG TABLET PO SCH ×2 (07:29→21:55)
[2019-03-16] MEDS: Sulfamethoxazole/Trimeth DS 1 EACH TABLET PO SCH (07:29)
[2019-03-16] MEDS: amLODIPine 5 MG TABLET PO SCH (07:29)
[2019-03-16] MEDS: FLUoxetine 20 MG CAPSULE PO SCH (07:30)
--- NOTE | 2019-03-16 07:37 | Urology Progress Note ---
Date of Encounter: 03/16/19 Time of Encounter: 07:36 - Assessment and Plan (1) Renal stone Current Visit: Yes Status: Resolved Assessment and plan: Neutrophil count at 1.6 today. Per hematology Notes okay for discharge Progress Note Subjective: no new complaints Narrative: No acute events overnight Objective Initial Vital Signs Temp Pulse Resp BP Pulse Ox 98.2 F 60 18 151/70 97 03/11/19 09:35 03/11/19 09:35 03/11/19 09:35 03/11/19 09:35 03/11/19 09:35 - General physical appearance Present: no distress - Additional Exam Patient relieved she is being discharged today Hopkins catheter draining clear urine - Labs 03/16/19 01:52 03/16/19 01:52 Diabetes panel 03/16/19 Range/Units 01:52 Sodium 135 L (136-145) mEq/L Potassium 3.9 (3.5-5.1) mEq/L Chloride 106 (98-107) mEq/L Carbon Dioxide 23 (23-29) mEq/L BUN 20 (8-23) mg/dL Creatinine 1.11 (0.60-1.20) mg/dL Glucose 156 H (70-105) mg/dL Calcium 8.8 (8.6-10.3) mg/dL AST 9 L (13-39) Units/L ALT 8 (7-52) Units/L Alkaline Phosphatase 67 (34-104) Units/L Albumin 2.5 L (3.5-5.7) g/dL Calcium panel 03/16/19 Range/Units 01:52 Calcium 8.8 (8.6-10.3) mg/dL Albumin 2.5 L (3.5-5.7) g/dL Pituitary panel 03/16/19 Range/Units 01:52 Sodium 135 L (136-145) mEq/L Potassium 3.9 (3.5-5.1) mEq/L Chloride 106 (98-107) mEq/L Carbon Dioxide 23 (23-29) mEq/L BUN 20 (8-23) mg/dL Creatinine 1.11 (0.60-1.20) mg/dL Glucose 156 H (70-105) mg/dL Calcium 8.8 (8.6-10.3) mg/dL Adrenal panel 03/16/19 Range/Units 01:52 Sodium 135 L (136-145) mEq/L Potassium 3.9 (3.5-5.1) mEq/L Chloride 106 (98-107) mEq/L Carbon Dioxide 23 (23-29) mEq/L BUN 20 (8-23) mg/dL Creatinine 1.11 (0.60-1.20) mg/dL Glucose 156 H (70-105) mg/dL Calcium 8.8 (8.6-10.3) mg/dL Total Bilirubin 0.2 L (0.3-1.0) mg/dL AST 9 L (13-39) Units/L ALT 8 (7-52) Units/L Alkaline Phosphatase 67 (34-104) Units/L Albumin 2.5 L (3.5-5.7) g/dL - VTE Documentation of Mechanical Device: Venous foot pump, device Consult Discharge Plan - Plan Referrals: Philippe Scott Jr, MD [Primary Care Provider] - Juan Manuel Elizabeth MD [Partnered Physician] - Prescriptions: Sulfamethoxazole/Trimeth DS [Bactrim DS] 1 each PO BID 14 Days #28 tablet Docusate [Colace] 100 mg PO BID #30 capsule
--- NOTE | 2019-03-16 07:40 | Discharge Summary ---
Orders not resulted at time of discharge: Pending orders 03/13/19 09:06 Culture,Blood [BC] Routine 03/17/19 04:00 Complete Blood Count [HEME] AM 0400 Comprehensive Metabolic Panel AM 0400 03/18/19 04:00 Complete Blood Count [HEME] AM 0400 Comprehensive Metabolic Panel AM 0400 03/19/19 04:00 Complete Blood Count [HEME] AM 0400 Comprehensive Metabolic Panel AM 0400 Date of Encounter: 03/16/19 Time of Encounter: 07:41 - Discharge Diagnosis (1) Renal stone Priority: Primary Status: Resolved - Hospital Course Hospital course: Ms. Hardy is a 78 year old female status post PCNL. Patient has had a fairly uneventful postoperative course with only low grade temps. She had a nephrostomy tube in place that was removed postop day #3. Catheter has remained in place with good output. Renal function normal. She has known leukopenia. Hematology was consult and recommended Neupogen until absolute neutrophil count is above 1.5. White blood cell count 3.6 today. Absolute neutrophil count 1.6. - Time Spent with Patient Total time spent providing and/or coordinating discharge services: Labs on day of discharge: Labs from last 24 hours 03/16/19 03/16/19 03/16/19 07:11 01:52 01:52 WBC 3.6 L RBC 2.64 L Hgb 7.8 L Hct 25.3 L MCV 95.8 MCH 29.5 MCHC 30.8 L RDW 14.9 H Plt Count 152 MPV 11.1 Immature Gran % 1.4 Seg Neutrophils % 44.8 Lymphocytes % 28.0 Monocytes % 12.6 Eosinophils % 11.8 Basophils % 1.4 Neutrophils # 1.6 Lymphocytes # 1.0 Monocytes # 0.5 Eosinophils # 0.4 Basophils # 0.1 Platelet Estimate Normal Sodium 135 L Potassium 3.9 Chloride 106 Carbon Dioxide 23 BUN 20 Creatinine 1.11 Est GFR ( Amer) 58 L Est GFR (Non-Af Amer) 48 L BUN/Creatinine Ratio 18 Glucose 156 H POC Glucose 124 H Calculated Osmolality 286 Calcium 8.8 Total Bilirubin 0.2 L AST 9 L ALT 8 Alkaline Phosphatase 67 Serum Total Protein 5.3 L Albumin 2.5 L Globulin 2.8 Albumin/Globulin Ratio 0.9 L Number of Stones Stone Size Stone Mass Stone Description Stone Composition 0503/15/19 03/15/19 20:14 16:18 11:43 WBC RBC Hgb Hct MCV MCH MCHC RDW Plt Count MPV Immature Gran % Seg Neutrophils % Lymphocytes % Monocytes % Eosinophils % Basophils % Neutrophils # Lymphocytes # Monocytes # Eosinophils # Basophils # Platelet Estimate Sodium Potassium Chloride Carbon Dioxide BUN Creatinine Est GFR ( Amer) Est GFR (Non-Af Amer) BUN/Creatinine Ratio Glucose POC Glucose 170 H 131 H 177 H Calculated Osmolality Calcium Total Bilirubin AST ALT Alkaline Phosphatase Serum Total Protein Albumin Globulin Albumin/Globulin Ratio Number of Stones Stone Size Stone Mass Stone Description Stone Composition 03/15/19 03/11/19 07:40 17:23 WBC RBC Hgb Hct MCV MCH MCHC RDW Plt Count MPV Immature Gran % Seg Neutrophils % Lymphocytes % Monocytes % Eosinophils % Basophils % Neutrophils # Lymphocytes # Monocytes # Eosinophils # Basophils # Platelet Estimate Sodium Potassium Chloride Carbon Dioxide BUN Creatinine Est GFR ( Amer) Est GFR (Non-Af Amer) BUN/Creatinine Ratio Glucose POC Glucose 105 H Calculated Osmolality Calcium Total Bilirubin AST ALT Alkaline Phosphatase Serum Total Protein Albumin Globulin Albumin/Globulin Ratio Number of Stones NUMEROUS Stone Size VARIOUS Stone Mass SEE NOTE Stone Description SEE NOTE Stone Composition SEE NOTE Preliminary micro results at discharge 03/13/19 09:06 Blood Culture - Preliminary Peripheral Central Cath, Picc Culture is incubating and being continuously monitored for growth. Final report to follow. 03/13/19 09:06 Blood Culture - Preliminary Peripheral Central Cath, Picc Culture is incubating and being continuously monitored for growth. Final report to follow. - Impressions ITS Impressions Nephrostomy 03/11/19 00:00 IMPRESSION: 1. Right ureteropelvic junction calculus. 2. Successful placement of a right nephroureteral catheter. She is to undergo tract dilatation and nephrolithotomy. D/ / Og Salcido MD / Og Salcido MD Interpreting Provider: Og Salcido MD Percutaneous Antegrade Pyelogram 03/11/19 15:45 IMPRESSION: Intraprocedural fluoroscopic spot images as above. See separate procedure report for more information. D/ / Hector Gold / Hector Gold Interpreting Provider: Hector Gold Chest X-Ray 03/11/19 17:29 IMPRESSION: No acute cardiopulmonary disease. D/ / 03/11/2019 17:47:04 Manjinder Nicolas MD / rashad Interpreting Provider: Manjinder Nicolas MD Chest X-Ray 03/13/19 10:54 IMPRESSION: No acute cardiopulmonary process identified. D/ / Gunnar De La Rosa MD / Gunnar De La Rosa MD Interpreting Provider: Gunnar De La Rosa MD - Discharge Medications Prescriptions: New amLODIPine [Norvasc] 5 mg PO DAILY tablet Omeprazole [PriLOSEC] 20 mg PO 0630 capsule. Docusate [Colace] 100 mg PO BID capsule Oxybutynin [Ditropan] 5 mg PO TID PRN tablet PRN Reason: bladder spasms Sulfamethoxazole/Trimeth DS [Bactrim DS] 1 each PO BID 14 Days #28 tablet Docusate [Colace] 100 mg PO BID #30 capsule Continued Aspirin 81 mg PO DAILY Metformin HCl [Glucophage] 1,000 mg PO BID Potassium Chloride [K-Tab ER] 20 meq PO DAILY Omeprazole [PriLOSEC] 20 mg PO DAILY Glimepiride [Amaryl] 4 mg PO DAILY FLUoxetine HCl [Fluoxetine HCl] 40 mg PO DAILY Amlodipine Besylate 10 mg PO DAILY Magnesium Oxide [Magnesium] 400 mg PO BID Metoprolol Tartrate 50 mg PO BID Prevagen 1 cap PO DAILY Sucralfate [Carafate] 1 gm PO TID Home Medications: Aspirin 81 mg PO DAILY 10/02/17 [History] FLUoxetine HCl [Fluoxetine HCl] 40 mg PO DAILY 10/02/17 [History] Glimepiride [Amaryl] 4 mg PO DAILY 10/02/17 [History] Metformin HCl [Glucophage] 1,000 mg PO BID 10/02/17 [History] Omeprazole [PriLOSEC] 20 mg PO DAILY 10/02/17 [History] Potassium Chloride [K-Tab ER] 20 meq PO DAILY 10/02/17 [History] Amlodipine Besylate 10 mg PO DAILY 03/11/19 [History] Magnesium Oxide [Magnesium] 400 mg PO BID 03/11/19 [History] Metoprolol Tartrate 50 mg PO BID 03/11/19 [History] Prevagen 1 cap PO DAILY 03/11/19 [History] Sucralfate [Carafate] 1 gm PO TID 03/11/19 [History] Docusate [Colace] 100 mg PO BID capsule 03/13/19 [Rx] Omeprazole [PriLOSEC] 20 mg PO 0630 capsule. 03/13/19 [Rx] Oxybutynin [Ditropan] 5 mg PO TID PRN tablet 03/13/19 [Rx] amLODIPine [Norvasc] 5 mg PO DAILY tablet 03/13/19 [Rx] Docusate [Colace] 100 mg PO BID #30 capsule 03/14/19 [Rx] Sulfamethoxazole/Trimeth DS [Bactrim DS] 1 each PO BID 14 Days #28 tablet 03/14/19 [Rx] Allergies/Adverse Reactions: Allergy/AdvReac Type Severity Reaction Status Date / Time RODGER Inhibitors AdvReac See Verified 03/11/19 10:31 Comments ampicillin AdvReac See Verified 03/11/19 10:31 Comments lisinopril AdvReac See Verified 03/11/19 10:31 Comments tetracycline [Tetracycline] AdvReac See Verified 03/11/19 10:31 Comments Date of admission: 03/12/19 11:32 Primary care physician: Philippe Scott Jr, MD Consults: 03/11/19 18:28 Consult to Hospitalist [CONS] Routine Consulting Provider: Hospitalist Joao Reason for Consult: Medical management of comorbidities Time Notified: 15:23 Call Completed: No 03/12/19 09:27 Consult to Oncology Hematology [CONS] Routine Consulting Provider: Oncology [facility] Reason for Consult: neutropenia Time Notified: 09:28 Call Completed: Yes 03/12/19 11:48 Consult to Physical Therapy [CONS] Routine Comment: Evaluate, develop and implement POC Reason for Consult: Possible ecf Does patient have active BEDREST order?: Yes Is patient medically & hemodynamically stable?: Yes OT [Consult to Occupational Therapy] [CONS] Routine Comment: Evaluate, develop and implement POC Reason for Consult: possible need for ecf Does patient have active BEDREST order?: No Is patient medically & hemodynamically stable?: Yes 03/16/19 07:35 Consult to PICC team [Consult to Invasive Line Access Team] [CONS] Routine Reason for Consult: picc line for abx Line Type: Midline Discharging clinician: Juan Manuel Elizabeth Anticipated date of discharge: 03/16/19 Exam Initial Vital Signs Temp Pulse Resp BP Pulse Ox 98.2 F 60 18 151/70 97 03/11/19 09:35 03/11/19 09:35 03/11/19 09:35 03/11/19 09:35 03/11/19 09:35 - General physical appearance Present: no distress - Additional Findings Hopkins catheter with clear urine - Patient Status Disposition: Transfer LTC Condition: Good Overall status at discharge: patient is back to baseline - Discharge Instructions Follow Up With: Philippe Scott Jr, MD [Primary Care Provider] - Juan Manuel Elizabeth MD [Partnered Physician] - (My office will contact patient for follow-up appointment) Additional Instructions: Patient can resume same activity level previous to admission Maintain Hopkins catheter for 1 week. Okay to remove Hopkins catheter March 21. If the ureteral stent comes out of the urethra with the catheter, okay to also remove the ureteral stent. Gently pull on the stent until the entire stent is removed. It should remove without resistance. - Diet and Activity Diet: advance to your usual diet - VTE Documentation of Mechanical Device: Venous foot pump, device
--- NOTE | 2019-03-16 11:50 | Internal Med Progress Note ---
Hospitalist Progress Note - Encounter Date of Encounter: 03/16/19 Time of Encounter: 11:49 - Subjective Interval History: Pt feesl ok, no new issues. - Exam Vitals: Temp Pulse Resp BP Pulse Ox 98.1 F 54 14 112/63 99 03/16/19 10:30 03/16/19 10:30 03/16/19 10:30 03/16/19 10:30 03/16/19 10:30 Exam: GENERAL: Alert, but lethargic EYES: PERRLA, EOMI EARS: External ears normal, canals clear OROPHARYNX: Lips, mucosa, and tongue normal. Teeth and gums normal. Oropharynx normal. NECK: No jugulovenous distention, No carotid bruits, Carotid pulse normal contour, Supple LUNGS: Lungs clear to auscultation, Good diaphragmatic excursion CARDIAC: Normal S1 and S2; no rubs, murmurs, or gallops ABDOMEN: Abdomen soft, non-tender, BS normal, No masses or organomegaly BACK -right-sided PCNL site bandaged EXTREMITIES: Extremities normal, no deformities, edema, clubbing or skin discoloration. Good capillary refill., No ulcers NEURO: Reflexes normal and symmetric. Sensation grossly intact, Cranial nerves II-XII intact PULSES: 2+ radial, 2+ carotid Rest of the exam is non contributory - Summary of Assessment and Plan Summary of Assessment and Plan: This is a 78 yof whome medicien been consutled for sepsis 1) sepsis: resolved 2) + urine culture: infection vs. colonlization, pt presented with sepsis, given the sepsis, it's probably a good idea to treat for 7 days of IV abx I discussed the case with , we are planning for IV abx. 2) dementia: baseline 3) All other issues: deffered to oncology and primary. 4) we will follow with you Time: 35 min - Time Spent with Patient Total time spent is greater than 50% in coordination of care (as documented) at patient's floor/unit and/or counseling patient: Internal Medicine: Result - Labs CBC & Chem 7: 03/16/19 01:52 03/16/19 01:52 Labs: Short CBC 03/16/19 Range/Units 01:52 WBC 3.6 L (4.3-11.1) K/mcL Hgb 7.8 L (11.5-15.4) g/dL Hct 25.3 L (35.3-44.9) % Plt Count 152 (140-400) K/mcL Neutrophils # 1.6 (1.6-8.9) K/mcL BMP 03/16/19 01:52 Sodium 135 L Potassium 3.9 Chloride 106 Carbon Dioxide 23 BUN 20 Creatinine 1.11 Glucose 156 H Calcium 8.8 Liver Function 03/16/19 Range/Units 01:52 Total Bilirubin 0.2 L (0.3-1.0) mg/dL AST 9 L (13-39) Units/L ALT 8 (7-52) Units/L Alkaline Phosphatase 67 (34-104) Units/L Albumin 2.5 L (3.5-5.7) g/dL - ABG Interpretation ABG results: PT/INR, D-dimer PT 13.2 Seconds (9.4-12.1) H 03/12/19 03:20 - VTE Documentation of Mechanical Device: Venous foot pump, device Consult Discharge Plan - Plan Additional Instructions: Patient can resume same activity level previous to admission Maintain Hopkins catheter for 1 week. Okay to remove Hopkins catheter March 21. If the ureteral stent comes out of the urethra with the catheter, okay to also remove the ureteral stent. Gently pull on the stent until the entire stent is removed. It should remove without resistance. Referrals: Philippe Scott Jr, MD [Primary Care Provider] - Juan Manuel Elizabeth MD [Partnered Physician] - (My office will contact patient for follow-up appointment) Prescriptions: Sulfamethoxazole/Trimeth DS [Bactrim DS] 1 each PO BID 14 Days #28 tablet Docusate [Colace] 100 mg PO BID #30 capsule
[2019-03-17 06:04] LABS: Basophils % 0.6 %; Eosinophils # 0.4 K/mcL (0.0-0.6); Eosinophils % 6.2 %; Immature Granulocytes % 1.3 % (0-4); Lymphocytes % 14.2 %; Mean Corpuscular HGB Conc 29.4 g/dL (31.6-35.5); Mean Corpuscular Hemoglobin 29.9 pg (28.0-33.3); Mean Corpuscular Volume 101.5 fL (83.0-100.0); Monocytes # 0.8 K/mcL (0.0-1.3); Monocytes % 11.1 %; Neutrophils # 4.5 K/mcL (1.6-8.9); Nucleated Red Blood Cells 0.3 /100 WBC (0); Platelet Count 135 K/mcL (140-400); Red Blood Count 3.35 M/mcL (3.82-4.97); Red Cell Distribution Width 15.1 % (11.5-14.5); Segmented Neutrophils % 66.6 %
[2019-03-17 06:25] LABS: Hypochromasia Present (Not Present); Platelet Estimate Slight Decrease (Normal)
--- NOTE | 2019-03-17 07:27 | Urology Progress Note ---
Date of Encounter: 03/17/19 Time of Encounter: 07:25 - Assessment and Plan (1) Renal stone Current Visit: Yes Status: Resolved Assessment and plan: urine cx returned resistant to all PO options. PICC line to be placed today with 7-10 days of Ertapenem. Hopefully can receive at [place]. pt is stable for discharge. Progress Note Narrative: pt states "Im ready to go" Objective Initial Vital Signs Temp Pulse Resp BP Pulse Ox 98.2 F 60 18 151/70 97 03/11/19 09:35 03/11/19 09:35 03/11/19 09:35 03/11/19 09:35 03/11/19 09:35 - General physical appearance Present: no distress - Additional Exam urine clear. - Labs 03/17/19 05:13 03/16/19 01:52 - VTE Documentation of Mechanical Device: Venous foot pump, device Consult Discharge Plan - Plan Additional Instructions: Patient can resume same activity level previous to admission Maintain Hopkins catheter for 1 week. Okay to remove Hopkins catheter March 21. If the ureteral stent comes out of the urethra with the catheter, okay to also remove the ureteral stent. Gently pull on the stent until the entire stent is removed. It should remove without resistance. Referrals: Philippe Scott Jr, MD [Primary Care Provider] - Juan Manuel Elizabeth MD [Partnered Physician] - (My office will contact patient for follow-up appointment) Prescriptions: Sulfamethoxazole/Trimeth DS [Bactrim DS] 1 each PO BID 14 Days #28 tablet Docusate [Colace] 100 mg PO BID #30 capsule
[2019-03-17] MEDS: Insulin LISPRO 300 UNITS/3 ML VIAL SQ SCH ×2 (07:52→13:01)
[2019-03-17] MEDS: FLUoxetine 20 MG CAPSULE PO SCH (08:08)
[2019-03-17] MEDS: amLODIPine 5 MG TABLET PO SCH (08:09)
[2019-03-17] MEDS: Magnesium Oxide 400 MG TABLET PO SCH (08:09)
[2019-03-17] MEDS: Sucralfate 1 GM TABLET PO SCH ×2 (08:09→13:01)
[2019-03-17 09:25] LABS: Alanine Aminotransferase 8 Units/L (7-52); Albumin 3.2 g/dL (3.5-5.7); Alkaline Phosphatase 87 Units/L (34-104); Aspartate Amino Transferase 11 Units/L (13-39); BUN/Creatinine Ratio 22 (6-26); Bilirubin,Total 0.2 mg/dL (0.3-1.0); Blood Urea Nitrogen 22 mg/dL (8-23); Calcium 9.6 mg/dL (8.6-10.3); Carbon Dioxide 23 mEq/L (23-29); Chloride 105 mEq/L (98-107); Globulin 3.1 g/dL (2.4-3.5); Glucose 143 mg/dL (70-105); Osmolality,Calculated 286 (280-300); Potassium 4.4 mEq/L (3.5-5.1); Sodium 135 mEq/L (136-145); Total Protein 6.3 g/dL (6.4-8.9); eGFR For Non-African Americans 53 (> 60)
[2019-03-17 11:43] VITALS: BP 125/54
[2019-03-17] MEDS ORDERED: *HR* HYDROcodone/Acet 5/325 mg TABLET PO PRN (14:45)
[2019-03-17] MEDS ORDERED: OXYCODONE Oral CONC 10 MG/0.5 ML ORAL.SYG SL PRN (14:46)
[2019-03-18] MEDS ORDERED: Ertapenem 1,000 MG in 0.9 % Sodium Chloride Mini Bag 100 ML IVPB SCH (09:00)
== END 2019-03-17 17:02 | DRG 853 ==
LOC: 3ANU 09:00 → SAMDAY 09:00 → 3ANU 18:14
PROVIDERS: ADMIT Urology; ATTEND Urology

== ENCOUNTER 2019-06-07 21:43 | Inpatient (IN) ==
[2019-06-07] MEDS ORDERED: Ertapenem 1,000 MG in 0.9 % Sodium Chloride Mini Bag 100 ML IVPB STA (21:55)
--- NOTE | 2019-06-07 22:15 | Emergency Department Note ---
Disposition Clinical Impression: UTI (urinary tract infection) Qualifiers: Urinary tract infection type: acute cystitis Hematuria presence: with hematuria Qualified Code(s): N30.01 - Acute cystitis with hematuria Disposition: Admitted As Inpatient Condition: Good Forms: ED Satisfaction Letter, Work/School Release Time of Disposition: 23:45 General Adult HPI - General Chief complaint: ED General Medical Stated complaint: D/T incorrect RX Time Seen by Provider: 06/07/19 21:53 Source: patient Limitations: no limitations Nursing Notes Reviewed: Yes Vital Signs Reviewed: Yes - History of Present Illness HPI Narrative: Female patient presents emergency department with a one-week history of confusion. states that she generally will get confused when she has urinary tract infection. She went to her primary care physician had a urinalysis and was placed on antibiotics. The PCP called the has been today and stated that the antibiotics were not the appropriate box and she did not come to the ER. Patient states that the patient has been confused which is consistent with other urinary tract infections. He does report that she occasionally has a cough. No vomiting. She does have a colostomy bag which is secondary from diverticulosis. He states that there has been some skin breakdown around the spleen has been using an appointment this appears to be getting better. No fevers. Pain Scale: 0 - Related Data Home Medications Medication Instructions Recorded Confirmed Aspirin 81 mg PO DAILY 10/02/17 03/26/19 FLUoxetine HCl [Fluoxetine HCl] 40 mg PO DAILY 10/02/17 03/26/19 Glimepiride [Amaryl] 4 mg PO DAILY 10/02/17 03/26/19 Metformin HCl [Glucophage] 1,000 mg PO BID 10/02/17 03/26/19 Potassium Chloride [K-Tab ER] 20 meq PO DAILY 10/02/17 03/26/19 Amlodipine Besylate 10 mg PO DAILY 03/11/19 03/26/19 Magnesium Oxide [Magnesium] 400 mg PO BID 03/11/19 03/26/19 Metoprolol Tartrate 50 mg PO BID 03/11/19 03/26/19 Prevagen 1 cap PO DAILY 03/11/19 03/26/19 Sucralfate [Carafate] 1 gm PO TID 03/11/19 03/26/19 Hydrocodone/Acetaminophen 1 each PO Q6H PRN 03/26/19 03/26/19 [Hydrocodone-Acetamin 5-300 mg] Previous Rx's Medication Instructions Recorded Omeprazole [PriLOSEC] 20 mg PO 0630 capsule. 03/13/19 Oxybutynin [Ditropan] 5 mg PO TID PRN tablet 03/13/19 Docusate [Colace] 100 mg PO BID #30 capsule 03/14/19 Ertapenem [INVanz] 1,000 mg IVPB DAILY #10 vial 03/17/19 Allergies Allergy/AdvReac Type Severity Reaction Status Date / Time RODGER Inhibitors AdvReac See Verified 06/07/19 21:50 Comments ampicillin AdvReac See Verified 06/07/19 21:50 Comments lisinopril AdvReac See Verified 06/07/19 21:50 Comments tetracycline [Tetracycline] AdvReac See Verified 06/07/19 21:50 Comments All systems ED: reviewed and negative except as stated. Review of Systems: As Per HPI Constitutional: Denies: fever Respiratory: Reports: cough. Denies: dyspnea Gastrointestinal: Denies: abdominal pain, nausea, vomiting, diarrhea Genitourinary: Reports: dysuria Musculoskeletal: Denies: back pain Neurological: Reports: other (Confusion) Past Medical History - Past Medical History Attestation: Yes The following information was validated with the patient. 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 history - Social History Smoking Status: Never smoker Smokeless Tobacco Status: No Alcohol use: Reports: none Drug use: Reports: none Physical Exam - General Limitations: no limitations General appearance: alert, in no apparent distress - Head Head exam: atraumatic, normocephalic, normal inspection - Eye Eye exam: Present: normal appearance, PERRL, EOMI - ENT ENT exam: normal exam, normal oropharynx, mucous membranes moist - Neck Neck exam: Present: normal inspection, full ROM, trachea midline - Chest Chest inspection: Present: normal inspection, symmetric chest wall rise - Respiratory Respiratory exam: Present: normal lung sounds bilaterally. Absent: respiratory distress, accessory muscle use - Cardiovascular Cardiovascular exam: Present: regular rate, normal rhythm, normal heart sounds - Abdominal Exam Abdominal exam: Present: soft, Non-Tender, other (Mild skin breakdown superior and inferior to patient's colostomy bag. Does not appear to be infected. No discharge. Ostomy is perfusing well.). Absent: tenderness, distention, guarding, rebound, rigidity, organomegaly - Extremities Exam Extremities exam: Present: normal inspection, full ROM, normal capillary refill. Absent: tenderness, pedal edema, calf tenderness - Neurological Exam Neurological exam: Present: alert, other (Pleasantly demented) - Psychiatric Psychiatric exam: Present: normal affect, normal mood - Skin Skin exam: Present: warm, dry, intact, normal color. Absent: rash, cyanosis, diaphoresis Course Course Narrative: Female patient with Proteus in her urine that is sensitive to antibodies are not available in by mouth form. Has been states that she has been confused at home. She is alert and oriented 3 at this time. Conversing well. Does not appear to be in acute distress. Does have an ostomy bag secondary to diverticulosis. Reports extreme dysuria. No fevers. Occasional cough. She overall appears well. Abdomen is soft nontender nondistended. Ostomy appears well with some mild abrasion above and below the site. It is however red and perfusing well. Patient with a white count of 3.2. No ANIKET noted. We did place an ultrasound-guided IV line in her left before meals. This procedure was performed by myself. Supervised by . Patient otherwise appears well. We will send another urinalysis. We will provide her with Pyridium secondary to her extreme dysuria. Be admitting to the hospital. - Consultations Consultation #1: Dr Moss accepted Pt in stable condition. Time: 23:44 Vital Signs Temperature 98.5 F 06/07/19 21:47 Pulse Rate 65 06/07/19 21:47 Respiratory Rate 18 06/07/19 21:47 Blood Pressure 117/69 06/07/19 21:47 O2 Sat by Pulse Oximetry 98 06/07/19 21:47 Temperature 98.5 F 06/07/19 21:47 Pulse Rate 67 06/07/19 23:04 Respiratory Rate 22 06/07/19 23:04 Blood Pressure 136/62 06/07/19 23:04 O2 Sat by Pulse Oximetry 98 06/07/19 23:04 Oxygen Delivery Oxygen Delivery Room Air Medical Decision Making - Medical Records Medical records reviewed: Yes I reviewed the patient's medical records. - Lab Data Lab results reviewed: Yes I reviewed the patient's lab results. Result diagrams: 06/07/19 22:16 06/07/19 22:16 Lab Results 06/07/19 06/07/19 06/07/19 Range/Units 22:16 22:16 22:16 WBC 3.2 L (4.3-11.1) K/mcL RBC 3.58 L (3.82-4.97) M/mcL Hgb 10.7 L (11.5-15.4) g/dL Hct 33.8 L (35.3-44.9) % MCV 94.4 (83.0-100.0) fL MCH 29.9 (28.0-33.3) pg MCHC 31.7 (31.6-35.5) g/dL RDW 14.4 (11.5-14.5) % Plt Count 244 (140-400) K/mcL MPV 10.7 (9.4-12.4) fL Immature Gran % 0.0 (0-4) % Seg Neutrophils % 24.4 % Lymphocytes % 35.4 % Monocytes % 20.1 % Eosinophils % 18.5 % Basophils % 1.6 % Neutrophils # 0.8 L (1.6-8.9) K/mcL Lymphocytes # 1.1 (0.6-4.6) K/mcL Monocytes # 0.6 (0.0-1.3) K/mcL Eosinophils # 0.6 (0.0-0.6) K/mcL Basophils # 0.1 (0.0-0.2) K/mcL Platelet Estimate Normal (Normal) PT 10.6 (9.4-12.1) Seconds INR 0.9 APTT 31.5 (26.0-36.0) Seconds Sodium 135 L (136-145) mEq/L Potassium 4.4 (3.5-5.1) mEq/L Chloride 102 (98-107) mEq/L Carbon Dioxide 23 (23-29) mEq/L BUN 21 (8-23) mg/dL Creatinine 1.13 (0.60-1.20) mg/dL Est GFR ( Amer) 56 L (> 60) Est GFR (Non-Af Amer) 46 L (> 60) BUN/Creatinine Ratio 19 (6-26) Glucose 111 H (70-105) mg/dL Calculated Osmolality 284 (280-300) Lactic Acid (0.5-2.2) mmol/L Calcium 9.6 (8.6-10.3) mg/dL Phosphorus 2.6 L (2.7-4.5) mg/dL Magnesium 1.2 L (1.6-2.6) mg/dL Total Bilirubin 0.4 (0.3-1.0) mg/dL Direct Bilirubin 0.1 (0.0-0.2) mg/dL Indirect Bilirubin 0.3 (0.0-1.2) mg/dL AST 14 (13-39) Units/L ALT 11 (7-52) Units/L Alkaline Phosphatase 75 (34-104) Units/L Troponin I < 0.03 (< 0.04) ng/mL Serum Total Protein 7.5 (6.4-8.9) g/dL Albumin 3.6 (3.5-5.7) g/dL Globulin 3.9 H (2.4-3.5) g/dL Albumin/Globulin Ratio 0.9 L (1.1-2.2) 06/07/19 Range/Units 22:16 WBC (4.3-11.1) K/mcL RBC (3.82-4.97) M/mcL Hgb (11.5-15.4) g/dL Hct (35.3-44.9) % MCV (83.0-100.0) fL MCH (28.0-33.3) pg MCHC (31.6-35.5) g/dL RDW (11.5-14.5) % Plt Count (140-400) K/mcL MPV (9.4-12.4) fL Immature Gran % (0-4) % Seg Neutrophils % % Lymphocytes % % Monocytes % % Eosinophils % % Basophils % % Neutrophils # (1.6-8.9) K/mcL Lymphocytes # (0.6-4.6) K/mcL Monocytes # (0.0-1.3) K/mcL Eosinophils # (0.0-0.6) K/mcL Basophils # (0.0-0.2) K/mcL Platelet Estimate (Normal) PT (9.4-12.1) Seconds INR APTT (26.0-36.0) Seconds Sodium (136-145) mEq/L Potassium (3.5-5.1) mEq/L Chloride (98-107) mEq/L Carbon Dioxide (23-29) mEq/L BUN (8-23) mg/dL Creatinine (0.60-1.20) mg/dL Est GFR ( Amer) (> 60) Est GFR (Non-Af Amer) (> 60) BUN/Creatinine Ratio (6-26) Glucose (70-105) mg/dL Calculated Osmolality (280-300) Lactic Acid 1.3 (0.5-2.2) mmol/L Calcium (8.6-10.3) mg/dL Phosphorus (2.7-4.5) mg/dL Magnesium (1.6-2.6) mg/dL Total Bilirubin (0.3-1.0) mg/dL Direct Bilirubin (0.0-0.2) mg/dL Indirect Bilirubin (0.0-1.2) mg/dL AST (13-39) Units/L ALT (7-52) Units/L Alkaline Phosphatase (34-104) Units/L Troponin I (< 0.04) ng/mL Serum Total Protein (6.4-8.9) g/dL Albumin (3.5-5.7) g/dL Globulin (2.4-3.5) g/dL Albumin/Globulin Ratio (1.1-2.2) - Radiology Data Radiology results reviewed: Yes I reviewed the patient's radiology results. Chest X-Ray 06/07/19 22:41 IMPRESSION: No acute process. D/ / Maxwell Vega / Maxwell Vega Interpreting Provider: Maxwell Vega - EKG Data EKG #1 EKG attestation: Yes I reviewed and interpreted this EKG. EKG results narrative: Normal sinus rhythm at a rate of 62. ND interval was not measured. QRS duration is 102. QT is 437. QTC is 444. No signs of acute ischemia. Good R- wave progression. No signs of WPW or Brugada. No significant change from previous EKG dated 01/17/2019.
--- NOTE | 2019-06-07 22:25 | Emergency Department Note ---
Disposition Clinical Impression: Failure of outpatient treatment UTI (urinary tract infection) Qualifiers: Urinary tract infection type: site unspecified Hematuria presence: without hematuria Qualified Code(s): N39.0 - Urinary tract infection, site not specified Disposition: Admitted As Inpatient Condition: Fair Forms: ED Satisfaction Letter, Work/School Release Time of Disposition: 23:40 General Adult HPI - General Chief complaint: ED General Medical Stated complaint: D/T incorrect RX Time Seen by Provider: 06/07/19 21:53 Source: patient Limitations: no limitations - History of Present Illness Pain Scale: 0 - Related Data Home Medications Medication Instructions Recorded Confirmed Aspirin 81 mg PO DAILY 10/02/17 03/26/19 FLUoxetine HCl [Fluoxetine HCl] 40 mg PO DAILY 10/02/17 03/26/19 Glimepiride [Amaryl] 4 mg PO DAILY 10/02/17 03/26/19 Metformin HCl [Glucophage] 1,000 mg PO BID 10/02/17 03/26/19 Potassium Chloride [K-Tab ER] 20 meq PO DAILY 10/02/17 03/26/19 Amlodipine Besylate 10 mg PO DAILY 03/11/19 03/26/19 Magnesium Oxide [Magnesium] 400 mg PO BID 03/11/19 03/26/19 Metoprolol Tartrate 50 mg PO BID 03/11/19 03/26/19 Prevagen 1 cap PO DAILY 03/11/19 03/26/19 Sucralfate [Carafate] 1 gm PO TID 03/11/19 03/26/19 Hydrocodone/Acetaminophen 1 each PO Q6H PRN 03/26/19 03/26/19 [Hydrocodone-Acetamin 5-300 mg] Previous Rx's Medication Instructions Recorded Omeprazole [PriLOSEC] 20 mg PO 0630 capsule. 03/13/19 Oxybutynin [Ditropan] 5 mg PO TID PRN tablet 03/13/19 Docusate [Colace] 100 mg PO BID #30 capsule 03/14/19 Ertapenem [INVanz] 1,000 mg IVPB DAILY #10 vial 03/17/19 Allergies Allergy/AdvReac Type Severity Reaction Status Date / Time RODGER Inhibitors AdvReac See Verified 06/07/19 21:50 Comments ampicillin AdvReac See Verified 06/07/19 21:50 Comments lisinopril AdvReac See Verified 06/07/19 21:50 Comments tetracycline [Tetracycline] AdvReac See Verified 06/07/19 21:50 Comments Past Medical History - Past Medical History Medical history: Reports: diabetes, hypertension Surgical history: Reports: cataract, cholecystectomy, colectomy, colostomy, herniorrhaphy, knee replacement, ureteral stent Psychiatric history: Reports: anxiety, depression 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: Reports: no 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 - Social History Smoking Status: Never smoker Smokeless Tobacco Status: No Alcohol use: Reports: none Drug use: Reports: none Physical Exam - General Limitations: no limitations General appearance: alert Course Vital Signs Temperature 98.5 F 06/07/19 21:47 Pulse Rate 65 06/07/19 21:47 Respiratory Rate 18 06/07/19 21:47 Blood Pressure 117/69 06/07/19 21:47 O2 Sat by Pulse Oximetry 98 06/07/19 21:47 Temperature 98.5 F 06/07/19 21:47 Pulse Rate 67 06/07/19 23:04 Respiratory Rate 22 06/07/19 23:04 Blood Pressure 136/62 06/07/19 23:04 O2 Sat by Pulse Oximetry 98 06/07/19 23:04 Oxygen Delivery Oxygen Delivery Room Air Medical Decision Making - Lab Data Result diagrams: 06/07/19 22:16 06/07/19 22:16 Lab Results 06/07/19 06/07/19 06/07/19 Range/Units 22:16 22:16 22:16 WBC 3.2 L (4.3-11.1) K/mcL RBC 3.58 L (3.82-4.97) M/mcL Hgb 10.7 L (11.5-15.4) g/dL Hct 33.8 L (35.3-44.9) % MCV 94.4 (83.0-100.0) fL MCH 29.9 (28.0-33.3) pg MCHC 31.7 (31.6-35.5) g/dL RDW 14.4 (11.5-14.5) % Plt Count 244 (140-400) K/mcL MPV 10.7 (9.4-12.4) fL Immature Gran % 0.0 (0-4) % Seg Neutrophils % 24.4 % Lymphocytes % 35.4 % Monocytes % 20.1 % Eosinophils % 18.5 % Basophils % 1.6 % Neutrophils # 0.8 L (1.6-8.9) K/mcL Lymphocytes # 1.1 (0.6-4.6) K/mcL Monocytes # 0.6 (0.0-1.3) K/mcL Eosinophils # 0.6 (0.0-0.6) K/mcL Basophils # 0.1 (0.0-0.2) K/mcL Platelet Estimate Normal (Normal) PT 10.6 (9.4-12.1) Seconds INR 0.9 APTT 31.5 (26.0-36.0) Seconds Sodium 135 L (136-145) mEq/L Potassium 4.4 (3.5-5.1) mEq/L Chloride 102 (98-107) mEq/L Carbon Dioxide 23 (23-29) mEq/L BUN 21 (8-23) mg/dL Creatinine 1.13 (0.60-1.20) mg/dL Est GFR ( Amer) 56 L (> 60) Est GFR (Non-Af Amer) 46 L (> 60) BUN/Creatinine Ratio 19 (6-26) Glucose 111 H (70-105) mg/dL Calculated Osmolality 284 (280-300) Lactic Acid (0.5-2.2) mmol/L Calcium 9.6 (8.6-10.3) mg/dL Phosphorus 2.6 L (2.7-4.5) mg/dL Magnesium 1.2 L (1.6-2.6) mg/dL Total Bilirubin 0.4 (0.3-1.0) mg/dL Direct Bilirubin 0.1 (0.0-0.2) mg/dL Indirect Bilirubin 0.3 (0.0-1.2) mg/dL AST 14 (13-39) Units/L ALT 11 (7-52) Units/L Alkaline Phosphatase 75 (34-104) Units/L Troponin I < 0.03 (< 0.04) ng/mL Serum Total Protein 7.5 (6.4-8.9) g/dL Albumin 3.6 (3.5-5.7) g/dL Globulin 3.9 H (2.4-3.5) g/dL Albumin/Globulin Ratio 0.9 L (1.1-2.2) 06/07/19 Range/Units 22:16 WBC (4.3-11.1) K/mcL RBC (3.82-4.97) M/mcL Hgb (11.5-15.4) g/dL Hct (35.3-44.9) % MCV (83.0-100.0) fL MCH (28.0-33.3) pg MCHC (31.6-35.5) g/dL RDW (11.5-14.5) % Plt Count (140-400) K/mcL MPV (9.4-12.4) fL Immature Gran % (0-4) % Seg Neutrophils % % Lymphocytes % % Monocytes % % Eosinophils % % Basophils % % Neutrophils # (1.6-8.9) K/mcL Lymphocytes # (0.6-4.6) K/mcL Monocytes # (0.0-1.3) K/mcL Eosinophils # (0.0-0.6) K/mcL Basophils # (0.0-0.2) K/mcL Platelet Estimate (Normal) PT (9.4-12.1) Seconds INR APTT (26.0-36.0) Seconds Sodium (136-145) mEq/L Potassium (3.5-5.1) mEq/L Chloride (98-107) mEq/L Carbon Dioxide (23-29) mEq/L BUN (8-23) mg/dL Creatinine (0.60-1.20) mg/dL Est GFR ( Amer) (> 60) Est GFR (Non-Af Amer) (> 60) BUN/Creatinine Ratio (6-26) Glucose (70-105) mg/dL Calculated Osmolality (280-300) Lactic Acid 1.3 (0.5-2.2) mmol/L Calcium (8.6-10.3) mg/dL Phosphorus (2.7-4.5) mg/dL Magnesium (1.6-2.6) mg/dL Total Bilirubin (0.3-1.0) mg/dL Direct Bilirubin (0.0-0.2) mg/dL Indirect Bilirubin (0.0-1.2) mg/dL AST (13-39) Units/L ALT (7-52) Units/L Alkaline Phosphatase (34-104) Units/L Troponin I (< 0.04) ng/mL Serum Total Protein (6.4-8.9) g/dL Albumin (3.5-5.7) g/dL Globulin (2.4-3.5) g/dL Albumin/Globulin Ratio (1.1-2.2) Attestation Statement - Attestation Attestation: I examined this patient and my medical decision-making was reviewed with the Resident Physician. I agree with the documented findings, disposition and treatment plan as described except to the extent set forth below. Patient presents to the ED with a chief complaint of a UTI. Patient's been having dysuria. Intermittent episodes of confusion. History of frequent UTIs. Patient took her to their primary provider on Sunday. She tested positive for UTI and is been taking oral antibiotics. They called him today and said to bring her to the ED because she needed IV antibiotics. Review of the culture shows she has a multidrug resistant Pseudomonas. On exam she is awake alert pleasant and appropriate. Abdomen soft. Lungs clear. Plan. Starting patient on IV ertapenem. Septic workup. Admission. EKG was reviewed with the resident Dr Yoo accepts for admission. Chest X-Ray 06/07/19 22:41 IMPRESSION: No acute process. D/ / Maxwell Vega / Maxwell Vega Interpreting Provider: Maxwell Vega
[2019-06-07 22:49] LABS: Activated Partial Thrombo Time 31.5 Seconds (26.0-36.0); Basophils # 0.1 K/mcL (0.0-0.2); Basophils % 1.6 %; Eosinophils # 0.6 K/mcL (0.0-0.6); Eosinophils % 18.5 %; Hematocrit 33.8 % (35.3-44.9); Hemoglobin 10.7 g/dL (11.5-15.4); INR 0.9; Lymphocytes # 1.1 K/mcL (0.6-4.6); Lymphocytes % 35.4 %; Mean Corpuscular HGB Conc 31.7 g/dL (31.6-35.5); Mean Corpuscular Hemoglobin 29.9 pg (28.0-33.3); Mean Corpuscular Volume 94.4 fL (83.0-100.0); Mean Platelet Volume 10.7 fL (9.4-12.4); Monocytes # 0.6 K/mcL (0.0-1.3); Monocytes % 20.1 %; Neutrophils # 0.8 K/mcL (1.6-8.9); Platelet Count 244 K/mcL (140-400); Prothrombin Time 10.6 Seconds (9.4-12.1); Red Blood Count 3.58 M/mcL (3.82-4.97); Red Cell Distribution Width 14.4 % (11.5-14.5); Segmented Neutrophils % 24.4 %; White Blood Count 3.2 K/mcL (4.3-11.1)
[2019-06-07 22:55] LABS: Alanine Aminotransferase 11 Units/L (7-52); Albumin 3.6 g/dL (3.5-5.7); Albumin/Globulin Ratio 0.9 (1.1-2.2); Alkaline Phosphatase 75 Units/L (34-104); Aspartate Amino Transferase 14 Units/L (13-39); BUN/Creatinine Ratio 19 (6-26); Bilirubin,Direct 0.1 mg/dL (0.0-0.2); Bilirubin,Indirect 0.3 mg/dL (0.0-1.2); Bilirubin,Total 0.4 mg/dL (0.3-1.0); Blood Urea Nitrogen 21 mg/dL (8-23); Calcium 9.6 mg/dL (8.6-10.3); Carbon Dioxide 23 mEq/L (23-29); Chloride 102 mEq/L (98-107); Globulin 3.9 g/dL (2.4-3.5); Glucose 111 mg/dL (70-105); Magnesium 1.2 mg/dL (1.6-2.6); Osmolality,Calculated 284 (280-300); Phosphorous 2.6 mg/dL (2.7-4.5); Potassium 4.4 mEq/L (3.5-5.1); Sodium 135 mEq/L (136-145); Total Protein 7.5 g/dL (6.4-8.9); eGFR For African Americans 56 (> 60); eGFR For Non-African Americans 46 (> 60)
[2019-06-07 22:56] LABS: Troponin I < 0.03 ng/mL (< 0.04)
[2019-06-07 22:59] LABS: Platelet Estimate Normal (Normal)
[2019-06-07] MEDS ORDERED: Magnesium Oxide 400 MG TABLET PO STA (23:24)
[2019-06-07 23:59] LABS: Bilirubin,Urine Negative (Negative); Blood,Urine Large (Negative); Clarity,Urine Turbid (Clear); Color,Urine Yellow (Yellow); Glucose,Urine (UA) Normal (Normal); Ketones,Urine Trace mg/dL (Negative); Leukocyte Esterase,Urine Large (Negative); Nitrite,Urine Negative (Negative); Protein,Urine >=300 mg/dL (Neg-Trace); Specific Gravity,Urine 1.019 (1.010-1.025); Urobilinogen,Urine Normal (Normal)
[2019-06-08 00:02] LABS: Bacteria,Urine None Seen per hpf (None-Few); Hyaline Casts,Urine None Seen per lpf (None-Few); RBC,Urine 50-100 per hpf (0-3); Squamous Epithelial Cell,Urine Many per lpf (None-Few); WBC,Urine TNTC per hpf (0-3)
[2019-06-08 00:12] LABS: Yeast,Urine Moderate per hpf (None Seen)
[2019-06-08] MEDS: Magnesium Oxide 400 MG TABLET PO SCH (03:08)
[2019-06-08] MEDS ORDERED: Naloxone 0.4 MG/ML INJ IVP PRN (06:46)
--- NOTE | 2019-06-08 06:54 | Internal Med History&Physical ---
Date of Encounter: 06/08/19 Time of Encounter: 05:21 Internal Medicine - H&P: HPI Chief complaint: UTI Admitted From: Emergency Dept Plans for Post Hospital Care: Home History of present illness: Ms. Hardy is a 79 year old female Patient presented to the emergency department with confusion. She has been increasingly confused over the last week. who was available in the emergency department said that she usually gets confused with urinary tract infections. When I assessed the patient, patient seemed still confused but was able to tell me that she was here for urinary tract infection and she had pain w ith urination. According to ER documentation the patient had been at her PCP and was treated for urinary tract infection outpatient. She did not improve and therefore was brought to the emergency department for further evaluation. In the emergency department patient's initial vital signs were within normal limits CBC notable for white count of 3.2, hemoglobin of 10.7 BMP showed a baseline GFR of 46, glucose 111. Lactic acid 1.3 Phosphorus 2.6 Magnesium 1.2 Troponin undetectable Liver function tests unremarkable Chest x-ray showed no acute process. EKG showed regular rate, pulse 62, QTC 444. Computer read as atrial flutter upon my review patient's rate is regular and there are small but discernible P waves. Comparison to previous EKG is unchanged. Urinalysis large blood, large leukocyte esterase, negative nitrites, numerous white blood cells. In the emergency department patient received a dose of ertapenem. Shortly thereafter she lost IV access. Multiple attempts were made to regain IV access but were unsuccessful. She was admitted to the hospital for further management. Upon my evaluation of the patient, she is resting comfortably in hospital bed in no acute distress. She denies chest pain, abdominal pain, nausea, vomiting, diarrhea and constipation. She does have dysuria. She is alert to self and place as well as situation but did not know the date. She is full code. Past Med Surg Social Fam HX - Past Medical History Medical history: diabetes, hypertension Additional medical history: Parkinson's. IBS Psychiatric history: anxiety, depression - Past Surgical History Surgical History: cataract, cholecystectomy, colectomy, colostomy, herniorrhaphy, knee replacement, ureteral stent Additional surgical history: kidney surgery/kidney stone-2014. femur fx-2017. kidney stent - Social History Smoking Status: Never smoker Smokeless Tobacco Status: No Alcohol use: none Drug use: none - Family History Son Adopted: No Living Status: Still Living Hx Family Cardiac Disorders: No Hx Family Respiratory Disorders: Yes Hx Family Cancer: No Hx Family GI Disorders: No Hx Family Endocrine Disorder: No Hx Family Neuromuscular Disorders: No Hx Family Neurologic Disorders: No Hx Family HEENT Disorders: No Hx Family Autoimmune Disorders: Yes (Autoimmune dx, unable to remember name) Father Living Status: Hx Family Cardiac Disorders: Yes (RI, HD, HTN) Mother Living Status: Hx Family Cardiac Disorders: Yes (HD) Brother Living Status: Hx Family Cardiac Disorders: Yes (RI, HD) Internal Medicine - H&P: Meds Aspirin 81 mg PO DAILY 10/02/17 [History] FLUoxetine HCl [Fluoxetine HCl] 40 mg PO DAILY 10/02/17 [History] Glimepiride [Amaryl] 4 mg PO DAILY 10/02/17 [History] Metformin HCl [Glucophage] 1,000 mg PO BID 10/02/17 [History] Potassium Chloride [K-Tab ER] 20 meq PO DAILY 10/02/17 [History] Amlodipine Besylate 10 mg PO DAILY 03/11/19 [History] Magnesium Oxide [Magnesium] 400 mg PO BID 03/11/19 [History] Metoprolol Tartrate 50 mg PO BID 03/11/19 [History] Prevagen 1 cap PO DAILY 03/11/19 [History] Sucralfate [Carafate] 1 gm PO TID 03/11/19 [History] Omeprazole [PriLOSEC] 20 mg PO 0630 capsule. 03/13/19 [Rx] Oxybutynin [Ditropan] 5 mg PO TID PRN tablet 03/13/19 [Rx] Docusate [Colace] 100 mg PO BID #30 capsule 03/14/19 [Rx] Ertapenem [INVanz] 1,000 mg IVPB DAILY #10 vial 03/17/19 [Rx] Hydrocodone/Acetaminophen [Hydrocodone-Acetamin 5-300 mg] 1 each PO Q6H PRN 03/26/19 [History] Allergy/AdvReac Type Severity Reaction Status Date / Time RODGER Inhibitors AdvReac See Verified 06/07/19 21:50 Comments ampicillin AdvReac See Verified 06/07/19 21:50 Comments lisinopril AdvReac See Verified 06/07/19 21:50 Comments tetracycline [Tetracycline] AdvReac See Verified 06/07/19 21:50 Comments All Systems PM: A 10-system review of systems was performed and is negative for pertinent findings except as documented above in the HPI. - Constitutional Vitals: Temp Pulse Resp BP Pulse Ox 98.7 F 69 15 144/69 96 06/08/19 01:52 06/08/19 01:52 06/08/19 01:52 06/08/19 01:52 06/08/19 01:52 General appearance: Present: cooperative, A&O X 2, pleasant, no acute distress, answers questions appropriately Exam: Alert to self, situation and place but not date - Head Head exam: Present: normal inspection - Eye Eye exam: Present: EOMI, normal appearance - Respiratory Respiratory exam: Present: CTAB. Absent: rales, respiratory distress, rhonchi, wheezes - Cardiovascular Cardiovascular exam: Present: RRR. Absent: diastolic murmur, systolic murmur - GI/Abdominal GI/Abdominal exam: Present: normal bowel sounds, soft. Absent: tenderness Additional comments: Colostomy bag, area clean and dry - Extremities Exam Extremities exam: Present: warm, radial pulses palpable and symmetrical. Absent: calf tenderness, pedal edema, tenderness - Neurological Exam Neurological exam: Present: no focal deficits, strengths equal and symetr throughout. Absent: motor sensory deficit, facial droop, speech deficit - Skin Skin exam: Present: dry, normal color, warm Internal Med - H&P Results - Labs CBC & Chem 7: 06/07/19 22:16 06/07/19 22:16 Labs: Short CBC 06/07/19 Range/Units 22:16 WBC 3.2 L (4.3-11.1) K/mcL Hgb 10.7 L (11.5-15.4) g/dL Hct 33.8 L (35.3-44.9) % Plt Count 244 (140-400) K/mcL Neutrophils # 0.8 L (1.6-8.9) K/mcL BMP 06/07/19 22:16 Sodium 135 L Potassium 4.4 Chloride 102 Carbon Dioxide 23 BUN 21 Creatinine 1.13 Glucose 111 H Calcium 9.6 Cardiac Enzymes 06/07/19 Range/Units 22:16 Troponin I < 0.03 (< 0.04) ng/mL Liver Function 06/07/19 Range/Units 22:16 Total Bilirubin 0.4 (0.3-1.0) mg/dL Direct Bilirubin 0.1 (0.0-0.2) mg/dL AST 14 (13-39) Units/L ALT 11 (7-52) Units/L Alkaline Phosphatase 75 (34-104) Units/L Albumin 3.6 (3.5-5.7) g/dL Urine 06/07/19 Range/Units 23:46 Urine Color Yellow (Yellow) Urine Clarity Turbid A (Clear) Urine pH 6.0 (5.0-8.0) pH Units Ur Specific [place] 1.019 (1.010-1.025) Urine Protein >=300 H (Neg-Trace) mg/dL Urine Glucose (UA) Normal (Normal) mg/dL - Impressions ITS Impressions Chest X-Ray 06/07/19 22:41 IMPRESSION: No acute process. D/ / Maxwell Vega / Maxwell Vega Interpreting Provider: Maxwell Vega - Assessment and Plan (1) Failure of outpatient treatment Current Visit: Yes Status: Acute Assessment and plan: Patient placed on antibiotics by PCP without improvement. Management as below (2) UTI (urinary tract infection) Current Visit: Yes Status: Acute Assessment and plan: Patient's urinalysis showed negative nitrites but large blood large leukocyte esterase many white blood cells. Previous urine culture from 06/04/19 grew out Proteus mirabilis, multidrug resistant, but sensitive to ertapenem. Continue IV ertapenem once IV reestablished, can give IM if needed. Follow-up repeat culture results Continue to monitor mental status Monitor for worsening signs of infection Qualifiers: Urinary tract infection type: acute cystitis Hematuria presence: with hematuria Qualified Code(s): N30.01 - Acute cystitis with hematuria (3) Altered mental status Current Visit: No Status: Acute Assessment and plan: Likely secondary to urinary tract infection. Patient oriented to self and place and situation but not time. Management of UTI as above Continue to monitor Qualifiers: Altered mental status type: unspecified Qualified Code(s): R41.82 - Altered mental status, unspecified (4) Diabetes Current Visit: No Status: Chronic Assessment and plan: Patient is not an insulin dependent diabetic Monitor sugars ACHS Diabetic diet Low dose insulin sliding scale as needed Hold home meds. Qualifiers: Diabetes mellitus type: type 2 Diabetes mellitus group home insulin use: without termite treater helper use Diabetes mellitus complication status: with hyperglycemia Qualified Code(s): E11.65 - Type 2 diabetes mellitus with hyperglycemia (5) DVT prophylaxis Current Visit: No Status: Acute Assessment and plan: SCDs - Time Spent With Patient Total time spent is greater than 50% in coordination of care (as documented) at patient's floor/unit and/or counseling patient:
[2019-06-08] MEDS ORDERED: D5% in Water 1,000 ML IVC PRN (07:00)
[2019-06-08] MEDS ORDERED: Dextrose Gel 15 GM/37.5 ML TUBE PO PRN ×2 (07:00)
[2019-06-08] MEDS ORDERED: *HR* Dextrose 50 % in Water (Syg) 50 ML SYRINGE IVP PRN (07:00)
[2019-06-08 08:29] LABS: Hemoglobin 9.3 g/dL (11.5-15.4); Red Cell Distribution Width 14.3 % (11.5-14.5)
[2019-06-08 08:30] LABS: Hematocrit 29.5 % (35.3-44.9); Mean Corpuscular HGB Conc 31.5 g/dL (31.6-35.5); Mean Corpuscular Hemoglobin 29.8 pg (28.0-33.3); Mean Corpuscular Volume 94.6 fL (83.0-100.0); Mean Platelet Volume 10.6 fL (9.4-12.4); Platelet Count 212 K/mcL (140-400); Red Blood Count 3.12 M/mcL (3.82-4.97); White Blood Count 1.8 K/mcL (4.3-11.1)
[2019-06-08 08:49] LABS: BUN/Creatinine Ratio 17 (6-26); Blood Urea Nitrogen 18 mg/dL (8-23); Calcium 9.4 mg/dL (8.6-10.3); Carbon Dioxide 25 mEq/L (23-29); Chloride 104 mEq/L (98-107); Glucose 102 mg/dL (70-105); Osmolality,Calculated 282 (280-300); Potassium 3.9 mEq/L (3.5-5.1); Sodium 135 mEq/L (136-145); eGFR For African Americans > 60 (> 60); eGFR For Non-African Americans 51 (> 60)
[2019-06-08 08:50] LABS: Magnesium 1.2 mg/dL (1.6-2.6); Phosphorous 3.1 mg/dL (2.7-4.5)
[2019-06-08] MEDS ORDERED: Ertapenem 1,000 MG in 0.9 % Sodium Chloride Mini Bag 100 ML IVPB SCH (09:00)
--- NOTE | 2019-06-08 09:45 | Event Note ---
Date of Encounter: 06/08/19 Time of Encounter: 07:45 Patient seen and examined at bedside. Admitted overnight for altered mental status and UTI. Started on ertapenam based on previous drug resistance. Alert and oriented 2. Says she does not feel well however he cannot offer more specific complaints. Afebrile and hemodynamically stable. On exam has suprapubic and left lower quadrant discomfort. Able to move all extremities without. Minimal right sided facial asymmetry with flattening of nasolabial fold and drooping of eyelids, without diplopia. No pronator drift. Cardiovascular respiratory exam unremarkable. Has colostomy bag. We will update CT head and CT abdomen/pelvis for further evaluation. Patient had difficulty getting IV access after multiple attempts. We will give ertapenam I am if not able to get access. Chest x-ray unremarkable. Has long history of chronic neutropenia is not previous chart review. UA is abnormal however not completely reliable sample. We will repeat UA and follow blood and urine culture. Obtain pro-calcitonin level and we will give magnesium supplementation.
[2019-06-08] MEDS: Insulin LISPRO 300 UNITS/3 ML VIAL SQ SCH ×4 (12:00→20:40)
--- NOTE | 2019-06-08 17:27 | Urology - Consult Note ---
Date of Encounter: 06/09/19 Time of Encounter: 17:22 - Assessment and Plan (1) Retained ureteral stent Current Visit: Yes Status: Acute Assessment and plan: I reviewed the CT scan and the stent remains in place and without significant encrustation. It shouldn't be difficult to remove because it has only been in place for 2-3 months. The hydronephrosis is likely from dilation secondary to the stent being place since March. Will plan to remove stent at bedside during hospitalization to assure its removal. Continue IVF and ABX. Follow cultures. Proteus infection from a few days ago reveals a resistant urinary tract infe ction without by mouth sensitivity. She is on appropriate antibiotics - Ertapenem. 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 She may benefit from 7-10 days of culture specific antibiotics after the stent is removed in hopes that it will reduce the colonization with the nidus (the stent/stone) removed Urology CN:HPI Consult date: 06/08/19 History of present illness: 79 yo female known to service. Underwent a successful PCNL in March. She still has stent in place. Looks like she was scheduled for followup to remove the stent but went to rehab and missed appt. admitted with possible UTI. recent illness. She states she feels better this morning. She denies any dysuria. Past Med Surg Social Fam HX - Past Medical History Medical history: diabetes, hypertension Additional medical history: Parkinson's. IBS Psychiatric history: anxiety, depression - Past Surgical History Surgical History: cataract, cholecystectomy, colectomy, colostomy, herniorrhaphy, knee replacement, ureteral stent Additional surgical history: kidney surgery/kidney stone-2014. femur fx-2017. kidney stent - Social History Smoking Status: Never smoker Smokeless Tobacco Status: No Alcohol use: none Drug use: none - Family History Son Adopted: No Living Status: Still Living Hx Family Cardiac Disorders: No Hx Family Respiratory Disorders: Yes Hx Family Cancer: No Hx Family GI Disorders: No Hx Family Endocrine Disorder: No Hx Family Neuromuscular Disorders: No Hx Family Neurologic Disorders: No Hx Family HEENT Disorders: No Hx Family Autoimmune Disorders: Yes (Autoimmune dx, unable to remember name) Father Living Status: Hx Family Cardiac Disorders: Yes ([place], HD, HTN) Mother Living Status: Hx Family Cardiac Disorders: Yes (HD) Brother Living Status: Hx Family Cardiac Disorders: Yes (TX, HD) Medications and Allergies Aspirin 81 mg PO DAILY 10/02/17 [History] FLUoxetine HCl [Fluoxetine HCl] 40 mg PO DAILY 10/02/17 [History] Glimepiride [Amaryl] 4 mg PO DAILY 10/02/17 [History] Metformin HCl [Glucophage] 1,000 mg PO BID 10/02/17 [History] Potassium Chloride [K-Tab ER] 20 meq PO DAILY 10/02/17 [History] Amlodipine Besylate 10 mg PO DAILY 03/11/19 [History] Magnesium Oxide [Magnesium] 400 mg PO BID 03/11/19 [History] Metoprolol Tartrate 50 mg PO BID 03/11/19 [History] Prevagen 1 cap PO DAILY 03/11/19 [History] Sucralfate [Carafate] 1 gm PO TID 03/11/19 [History] Omeprazole [PriLOSEC] 20 mg PO 0630 capsule. 03/13/19 [Rx] Oxybutynin [Ditropan] 5 mg PO TID PRN tablet 03/13/19 [Rx] Docusate [Colace] 100 mg PO BID #30 capsule 03/14/19 [Rx] Ertapenem [INVanz] 1,000 mg IVPB DAILY #10 vial 03/17/19 [Rx] Hydrocodone/Acetaminophen [Hydrocodone-Acetamin 5-300 mg] 1 each PO Q6H PRN 03/26/19 [History] Allergy/AdvReac Type Severity Reaction Status Date / Time RODGER Inhibitors AdvReac See Verified 06/07/19 21:50 Comments ampicillin AdvReac See Verified 06/07/19 21:50 Comments lisinopril AdvReac See Verified 06/07/19 21:50 Comments tetracycline [Tetracycline] AdvReac See Verified 06/07/19 21:50 Comments Review of Systems - Constitutional fatigue, no fever(s) - EENT Nose, mouth and throat: no dizziness - Cardiovascular no chest pain - Respiratory no cough - Gastrointestinal no abdominal pain - Genitourinary Genitourinary: no dysuria - Musculoskeletal back pain - Integumentary no erythema - Neurological no confusion - Psychiatric no anxiety Exam Initial Vital Signs Temp Pulse Resp BP Pulse Ox 98.5 F 65 18 117/69 98 06/07/19 21:47 06/07/19 21:47 06/07/19 21:47 06/07/19 21:47 06/07/19 21:47 - General physical appearance Present: no distress, chronically ill - Eyes Present: PERRL - ENT Present: normal nares - Neck Present: no masses, no lymphadenopathy - Respiratory Present: normal respiratory effort - Cardiovascular Cardiovascular exam IM: RRR - Abdomen Abdomen: Present: soft - Integumentary Present: no rash - Neurologic Present: normal coordination. Absent: disoriented, confused Urology Results - Labs 06/08/19 07:59 06/08/19 07:59 Abnormal lab results WBC 1.8 K/mcL (4.3-11.1) L 06/08/19 07:59 RBC 3.12 M/mcL (3.82-4.97) L 06/08/19 07:59 Hgb 9.3 g/dL (11.5-15.4) L 06/08/19 07:59 Hct 29.5 % (35.3-44.9) L 06/08/19 07:59 MCHC 31.5 g/dL (31.6-35.5) L 06/08/19 07:59 Neutrophils # 0.8 K/mcL (1.6-8.9) L 06/07/19 22:16 Sodium 135 mEq/L (136-145) L 06/08/19 07:59 Est GFR ( Amer) 56 (> 60) L 06/07/19 22:16 Est GFR (Non-Af Amer) 51 (> 60) L 06/08/19 07:59 Glucose 111 mg/dL (70-105) H 06/07/19 22:16 Phosphorus 2.6 mg/dL (2.7-4.5) L 06/07/19 22:16 Magnesium 1.2 mg/dL (1.6-2.6) L 06/08/19 07:59 Globulin 3.9 g/dL (2.4-3.5) H 06/07/19 22:16 Albumin/Globulin Ratio 0.9 (1.1-2.2) L 06/07/19 22:16 Urine Clarity Turbid (Clear) A 06/07/19 23:46 Urine Protein >=300 mg/dL (Neg-Trace) H 06/07/19 23:46 Urine Ketones Trace mg/dL (Negative) H 06/07/19 23:46 Urine Blood Large (Negative) H 06/07/19 23:46 Ur Leukocyte Esterase Large (Negative) H 06/07/19 23:46 Urine Microscopic RBC 50-100 per hpf (0-3) H 06/07/19 23:46 Urine Microscopic WBC TNTC per hpf (0-3) H 06/07/19 23:46 Ur Squamous Epith Cells Many per lpf (None-Few) H 06/07/19 23:46 Urine Yeast Moderate per hpf (None Seen) H 06/07/19 23:46 Ur Culture Indicated? YES (NO) A 06/07/19 23:46 Diabetes panel 06/07/19 06/08/19 Range/Units 22:16 07:59 Sodium 135 L 135 L (136-145) mEq/L Potassium 4.4 3.9 (3.5-5.1) mEq/L Chloride 102 104 (98-107) mEq/L Carbon Dioxide 23 25 (23-29) mEq/L BUN 21 18 (8-23) mg/dL Creatinine 1.13 1.05 (0.60-1.20) mg/dL Glucose 111 H 102 (70-105) mg/dL Calcium 9.6 9.4 (8.6-10.3) mg/dL AST 14 (13-39) Units/L ALT 11 (7-52) Units/L Alkaline Phosphatase 75 (34-104) Units/L Albumin 3.6 (3.5-5.7) g/dL Calcium panel 06/07/19 06/08/19 06/08/19 Range/Units 22:16 07:59 07:59 Calcium 9.6 9.4 (8.6-10.3) mg/dL Phosphorus 2.6 L 3.1 (2.7-4.5) mg/dL Albumin 3.6 (3.5-5.7) g/dL Pituitary panel 06/07/19 06/08/19 Range/Units 22:16 07:59 Sodium 135 L 135 L (136-145) mEq/L Potassium 4.4 3.9 (3.5-5.1) mEq/L Chloride 102 104 (98-107) mEq/L Carbon Dioxide 23 25 (23-29) mEq/L BUN 21 18 (8-23) mg/dL Creatinine 1.13 1.05 (0.60-1.20) mg/dL Glucose 111 H 102 (70-105) mg/dL Calcium 9.6 9.4 (8.6-10.3) mg/dL Adrenal panel 06/07/19 06/08/19 Range/Units 22:16 07:59 Sodium 135 L 135 L (136-145) mEq/L Potassium 4.4 3.9 (3.5-5.1) mEq/L Chloride 102 104 (98-107) mEq/L Carbon Dioxide 23 25 (23-29) mEq/L BUN 21 18 (8-23) mg/dL Creatinine 1.13 1.05 (0.60-1.20) mg/dL Glucose 111 H 102 (70-105) mg/dL Calcium 9.6 9.4 (8.6-10.3) mg/dL Total Bilirubin 0.4 (0.3-1.0) mg/dL AST 14 (13-39) Units/L ALT 11 (7-52) Units/L Alkaline Phosphatase 75 (34-104) Units/L Albumin 3.6 (3.5-5.7) g/dL All other labs normal. Consult Discharge Plan - Plan Referrals: Philippe Scott Jr, MD [Primary Care Provider] - (Please call Sunday to schedule hospital follow up appointment for 7-10 days from date of discharge.)
[2019-06-09] MEDS: Ertapenem 1,000 MG in 0.9 % Sodium Chloride Mini Bag 100 ML IVPB SCH (00:19)
--- NOTE | 2019-06-09 07:48 | Internal Med Progress Note ---
Hospitalist Progress Note - Encounter Date of Encounter: 06/09/19 Time of Encounter: 07:48 - Subjective Interval History: Patient seen and examined this morning was. No acute overnight events. Denies new complaints. Feeling much better. Denies any abdominal pain. Afebrile and hemodynamically stable. - Exam Vitals: Temp Pulse Resp BP Pulse Ox 98.6 F 89 16 139/73 97 06/09/19 07:24 06/09/19 07:24 06/09/19 07:24 06/09/19 07:24 06/09/19 07:24 Exam: General: In no acute distress. Respiratory exam: CTAB. no accessory muscle use, rales, rhonchi, wheezes Cardiovascular exam: RRR, +S1, +S2. no murmur, gallop, rubs. GI/Abdominal exam: Non-tender, Non-distended, normal bowel sounds, soft, no peritoneal signs. Extremities exam: no pedal edema, pulses palpable in b/l lower extremities. no calf tenderness Neurological exam: CN II-XII intact, AO X3, no focal deficits. Skin exam: No skin rash - Assessment and Plan (1) DVT prophylaxis Current Visit: No Status: Acute (2) UTI (urinary tract infection) Current Visit: Yes Status: Acute (3) Diabetes Current Visit: No Status: Chronic (4) Altered mental status Current Visit: No Status: Acute (5) Failure of outpatient treatment Current Visit: Yes Status: Acute - Summary of Assessment and Plan Summary of Assessment and Plan: Assessment Acute UTI Retaining ureteral stent AMS hypomagnesemia Chronic DM Chronic neutropenia chronic anemia Plan - Patient to get ureteral stent removed today. c/w ertapenam. - Discussed with urology, urine culture was poor sample. Will benefit from antibiotic course. continue ertapenam and plan to finish course for 7 days. Will arrange for outpatient IV antibiotics - c/w mangnesium supplementation orally. will give one IV dose - c/w accuchecks and SSI. Internal Medicine: Result - Labs CBC & Chem 7: 06/08/19 07:59 06/08/19 07:59 Labs: Short CBC 06/08/19 Range/Units 07:59 WBC 1.8 L (4.3-11.1) K/mcL Hgb 9.3 L (11.5-15.4) g/dL Hct 29.5 L (35.3-44.9) % Plt Count 212 (140-400) K/mcL BMP 06/08/19 07:59 Sodium 135 L Potassium 3.9 Chloride 104 Carbon Dioxide 25 BUN 18 Creatinine 1.05 Glucose 102 Calcium 9.4 - ABG Interpretation ABG results: PT/INR, D-dimer PT 10.6 Seconds (9.4-12.1) 06/07/19 22:16 - Impressions Impressions Abdomen/Pelvis CT 06/08/19 08:00 IMPRESSION: Right ureteral stent in place. It appears appropriately positioned. Despite the ureteral stent, there is dern-lt-pmrrrxgo right hydroureteronephrosis. No obstructing stone visualized. Bladder wall appears slightly thickened and inflamed. Correlate with urinalysis. D/ / Myranda Smith MD / Myranda Smith MD Interpreting Provider: Myranda Smith MD Head CT 06/08/19 08:00 IMPRESSION: No acute intracranial abnormality. Mild to moderate parenchymal volume loss. Mild chronic microvascular disease. Stable moderate ventriculomegaly. 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
[2019-06-09] MEDS: Insulin LISPRO 300 UNITS/3 ML VIAL SQ SCH ×4 (08:06→22:26)
[2019-06-09] MEDS: Magnesium Oxide 400 MG TABLET PO SCH ×2 (08:14→20:38)
--- NOTE | 2019-06-09 08:55 | Urology Progress Note ---
<Sumaya Page N - Last Filed: 06/09/19 08:51> Date of Encounter: 06/09/19 Time of Encounter: 08:05 - Assessment and Plan (1) Retained ureteral stent Status: Acute Assessment and plan: Patient is a 79-year-old female who presents with a retained right ureteral stent status post PCNL from 03/11/2019. Patient's says he was unaware stent placement. I explained patient has an indwelling stent that will be removed during her hospital stay. I explained patient must appointment secondary to rehabilitation stay postoperatively. I reviewed urine culture results with patient and her , as he says he is unaware of patient's jaswinder gnosis and treatment plan. Vital signs are stable and afebrile. Renal function is improving, and patient is receiving IV ertapenem. Dr. Elizabeth will be in to reevaluate patient. Progress Note Narrative: Patient seen and examined lying in bed in no apparent distress. Patient reports feeling better, and she denies any fever, chills, flank pain or gross hematuria. Patient admits to some continued dysuria. Objective Initial Vital Signs Temp Pulse Resp BP Pulse Ox 98.5 F 65 18 117/69 98 06/07/19 21:47 06/07/19 21:47 06/07/19 21:47 06/07/19 21:47 06/07/19 21:47 - General physical appearance Present: no distress, no pain - Respiratory Present: normal expansion, normal respiratory effort - Abdomen Present: soft, non tender. Absent: distended - Integumentary Present: no rash, no abnormal pigmentation - Musculoskeletal Present: normal posture - Psychiatric Present: oriented to time, oriented to person, oriented to place, speech is normal. Absent: memory intact - Labs 06/08/19 07:59 06/08/19 07:59 Consult Discharge Plan - Plan Instructions: Ertapenem (Injection), Urinary Tract Infection in Women (DC), Gastroenteritis (DC) Additional Instructions: Home Health has been arranged for administering IV Antibiotics. They will be out tomorrow morning between 9-10am. If you need to contact them please call #[phone]. Referrals: Philippe Scott Jr, MD [Primary Care Provider] - (Please call Sunday to schedule hospital follow up appointment for 7-10 days from date of discharge.) Prescriptions: Ertapenem [INVanz] 1,000 mg IV DAILY 7 Days #7 vial <Juan Manuel Elizabeth - Last Filed: 06/10/19 19:07> Date of Encounter: 06/10/19 - Assessment and Plan (1) Retained ureteral stent Status: Acute Assessment and plan: agree with PA A/P. I evaluated pt later in the day and removed the stent at bedside. Objective Initial Vital Signs Temp Pulse Resp BP Pulse Ox 98.5 F 65 18 117/69 98 06/07/19 21:47 06/07/19 21:47 06/07/19 21:47 06/07/19 21:47 06/07/19 21:47 - Labs 06/10/19 05:19 06/10/19 05:19 Diabetes panel 06/10/19 Range/Units 05:19 Sodium 139 (136-145) mEq/L Potassium 4.0 (3.5-5.1) mEq/L Chloride 101 (98-107) mEq/L Carbon Dioxide 27 (23-29) mEq/L BUN 18 (8-23) mg/dL Creatinine 0.85 (0.60-1.20) mg/dL Glucose 142 H (70-105) mg/dL Calcium 9.4 (8.6-10.3) mg/dL Calcium panel 06/10/19 Range/Units 05:19 Calcium 9.4 (8.6-10.3) mg/dL Pituitary panel 06/10/19 Range/Units 05:19 Sodium 139 (136-145) mEq/L Potassium 4.0 (3.5-5.1) mEq/L Chloride 101 (98-107) mEq/L Carbon Dioxide 27 (23-29) mEq/L BUN 18 (8-23) mg/dL Creatinine 0.85 (0.60-1.20) mg/dL Glucose 142 H (70-105) mg/dL Calcium 9.4 (8.6-10.3) mg/dL Adrenal panel 06/10/19 Range/Units 05:19 Sodium 139 (136-145) mEq/L Potassium 4.0 (3.5-5.1) mEq/L Chloride 101 (98-107) mEq/L Carbon Dioxide 27 (23-29) mEq/L BUN 18 (8-23) mg/dL Creatinine 0.85 (0.60-1.20) mg/dL Glucose 142 H (70-105) mg/dL Calcium 9.4 (8.6-10.3) mg/dL
[2019-06-09] MEDS ORDERED: Acetaminophen 325 MG TABLET PO PRN (12:08)
[2019-06-09] MEDS ORDERED: 0.9 % Sodium Chloride 1,000 ML ONE (12:18)
--- NOTE | 2019-06-09 13:22 | Urology Procedure Note ---
<Sumaya Page - Last Filed: 06/09/19 13:19> Date of Encounter: 06/09/19 Time of Encounter: 12:10 Procedures:Urology - Cystoscopy Time out performed: Yes Prophylactic Antibiotics Given: No Reason for Cystoscopy: Ureteral stent removal Preparation: Povidone-Iodine Irrigation Fluid Used: Yes (200 mL) Cystoscopy Results and Findings: Normal urethra, encrusted right ureteral stent removed without difficulty Patient tolerated procedure: well, no complications Additional comments: Patient lying in supine position. Patient was prepped and draped in normal sterile fashion. The cystoscope was advanced into the urethra where the distal coil of the ureteral stent was visualized. A stent grasper was used to retrieve the ureteral stent, and it was removed without difficulty. The patient tolerated the procedure well without complication. The stent appeared to be encrusted. <Juan Manuel Elizabeth - Last Filed: 06/10/19 19:05> Date of Encounter: 06/10/19 Procedures:Urology - Cystoscopy Additional comments: stent removal procedure was performed by me with assistance from Sumaya Page. no complications noted.
--- NOTE | 2019-06-09 14:35 | Electrocardiograph Report ---
[address] [address] Test Date: 2019-06-07 Pat Name: Sheree Hardy Department: [id number] Room: 3B Gender: F [employer] Developer: : 1940 Requested By: Nae See Order Number: [id number] Reading MD: Bhaskar Wells Measurements Intervals [place] Rate: 62 P: AL: QRS: -40 QRSD: 102 T: 8 QT: 437 QTc: 444 Interpretive Statements Sinus rhythm Left anterior fascicular block Possible left ventricular hypertrophy Electronically Signed On 06-09-2019 14:33:40 EDT by Bhaskar Wells
[2019-06-09] MEDS ORDERED: Lidocaine -MPF 1% 5 ML AMPUL INFILT ONE (17:24)
[2019-06-10] MEDS: Ertapenem 1,000 MG in 0.9 % Sodium Chloride Mini Bag 100 ML IVPB SCH (00:10)
[2019-06-10 05:48] LABS: Eosinophils # 0.3 K/mcL (0.0-0.6); Eosinophils % 15.8 %; Hematocrit 31.5 % (35.3-44.9); Immature Granulocytes % 0.5 % (0-4); Lymphocytes # 0.9 K/mcL (0.6-4.6); Lymphocytes % 46.5 %; Mean Corpuscular HGB Conc 31.7 g/dL (31.6-35.5); Mean Corpuscular Hemoglobin 30.1 pg (28.0-33.3); Mean Corpuscular Volume 94.9 fL (83.0-100.0); Mean Platelet Volume 10.5 fL (9.4-12.4); Monocytes # 0.5 K/mcL (0.0-1.3); Monocytes % 25.2 %; Neutrophils # 0.2 K/mcL (1.6-8.9); Platelet Count 229 K/mcL (140-400); Red Blood Count 3.32 M/mcL (3.82-4.97); Red Cell Distribution Width 14.2 % (11.5-14.5)
[2019-06-10 06:09] LABS: BUN/Creatinine Ratio 21 (6-26); Blood Urea Nitrogen 18 mg/dL (8-23); Calcium 9.4 mg/dL (8.6-10.3); Carbon Dioxide 27 mEq/L (23-29); Chloride 101 mEq/L (98-107); Glucose 142 mg/dL (70-105); Osmolality,Calculated 292 (280-300); Platelet Estimate Normal (Normal); Sodium 139 mEq/L (136-145); eGFR For African Americans > 60 (> 60); eGFR For Non-African Americans > 60 (> 60)
[2019-06-10 07:15] VITALS: BP 183/64
[2019-06-10] MEDS: Magnesium Oxide 400 MG TABLET PO SCH (08:09)
[2019-06-10] MEDS: Insulin LISPRO 300 UNITS/3 ML VIAL SQ SCH (08:09)
--- NOTE | 2019-06-10 08:34 | Urology Progress Note ---
<Sumaya Page N - Last Filed: 06/10/19 08:32> Date of Encounter: 06/10/19 Time of Encounter: 08:10 - Assessment and Plan (1) Retained ureteral stent Status: Acute Assessment and plan: Patient is a 79-year-old female who presents with a retained ureteral stent and urinary tract infection. Ureteral stent was removed at bedside yesterday aft oral. Patient tolerated that procedure well. Renal function is improved with a GFR greater than 60. I spoke with patient's attending hospitalist provider yesterday, and she will be arranged for outpatient IV antibiotic infusions. Patient may follow up with Dr. Elizabeth within 4-6 weeks of discharge or sooner as needed. Progress Note Subjective: no new complaints Narrative: Patient seen and examined sitting upright in chair in no apparent distress. Patient reports she is voiding well without difficulty. Patient denies any fever, chills, flank pain, dysuria or gross hematuria. Objective Initial Vital Signs Temp Pulse Resp BP Pulse Ox 98.5 F 65 18 117/69 98 06/07/19 21:47 06/07/19 21:47 06/07/19 21:47 06/07/19 21:47 06/07/19 21:47 - General physical appearance Present: no distress, no pain - Respiratory Present: normal expansion, normal respiratory effort - Abdomen Present: soft, non tender. Absent: distended - Integumentary Present: no rash, no abnormal pigmentation - Musculoskeletal Present: normal posture - Psychiatric Present: oriented to time, oriented to person, oriented to place, speech is normal, memory intact - Labs 06/10/19 05:19 06/10/19 05:19 Diabetes panel 06/10/19 Range/Units 05:19 Sodium 139 (136-145) mEq/L Potassium 4.0 (3.5-5.1) mEq/L Chloride 101 (98-107) mEq/L Carbon Dioxide 27 (23-29) mEq/L BUN 18 (8-23) mg/dL Creatinine 0.85 (0.60-1.20) mg/dL Glucose 142 H (70-105) mg/dL Calcium 9.4 (8.6-10.3) mg/dL Calcium panel 06/10/19 Range/Units 05:19 Calcium 9.4 (8.6-10.3) mg/dL Pituitary panel 06/10/19 Range/Units 05:19 Sodium 139 (136-145) mEq/L Potassium 4.0 (3.5-5.1) mEq/L Chloride 101 (98-107) mEq/L Carbon Dioxide 27 (23-29) mEq/L BUN 18 (8-23) mg/dL Creatinine 0.85 (0.60-1.20) mg/dL Glucose 142 H (70-105) mg/dL Calcium 9.4 (8.6-10.3) mg/dL Adrenal panel 06/10/19 Range/Units 05:19 Sodium 139 (136-145) mEq/L Potassium 4.0 (3.5-5.1) mEq/L Chloride 101 (98-107) mEq/L Carbon Dioxide 27 (23-29) mEq/L BUN 18 (8-23) mg/dL Creatinine 0.85 (0.60-1.20) mg/dL Glucose 142 H (70-105) mg/dL Calcium 9.4 (8.6-10.3) mg/dL Consult Discharge Plan - Plan Instructions: Ertapenem (Injection), Urinary Tract Infection in Women (DC), Gastroenteritis (DC) Additional Instructions: Home Health has been arranged for administering IV Antibiotics. They will be out tomorrow morning between 9-10am. If you need to contact them please call #[phone]. Referrals: Philippe Scott Jr, MD [Primary Care Provider] - (Please call Sunday to schedule hospital follow up appointment for 7-10 days from date of discharge.) Prescriptions: Ertapenem [INVanz] 1,000 mg IV DAILY 7 Days #7 vial <Juan Manuel Elizabeth - Last Filed: 06/10/19 19:04> Date of Encounter: 06/10/19 - Assessment and Plan (1) Retained ureteral stent Status: Acute Assessment and plan: agree with PA assessment and plan. She was not personally seen by MD on this date. Objective Initial Vital Signs Temp Pulse Resp BP Pulse Ox 98.5 F 65 18 117/69 98 06/07/19 21:47 06/07/19 21:47 06/07/19 21:47 06/07/19 21:47 06/07/19 21:47 - Labs 06/10/19 05:19 06/10/19 05:19 Diabetes panel 06/10/19 Range/Units 05:19 Sodium 139 (136-145) mEq/L Potassium 4.0 (3.5-5.1) mEq/L Chloride 101 (98-107) mEq/L Carbon Dioxide 27 (23-29) mEq/L BUN 18 (8-23) mg/dL Creatinine 0.85 (0.60-1.20) mg/dL Glucose 142 H (70-105) mg/dL Calcium 9.4 (8.6-10.3) mg/dL Calcium panel 06/10/19 Range/Units 05:19 Calcium 9.4 (8.6-10.3) mg/dL Pituitary panel 06/10/19 Range/Units 05:19 Sodium 139 (136-145) mEq/L Potassium 4.0 (3.5-5.1) mEq/L Chloride 101 (98-107) mEq/L Carbon Dioxide 27 (23-29) mEq/L BUN 18 (8-23) mg/dL Creatinine 0.85 (0.60-1.20) mg/dL Glucose 142 H (70-105) mg/dL Calcium 9.4 (8.6-10.3) mg/dL Adrenal panel 06/10/19 Range/Units 05:19 Sodium 139 (136-145) mEq/L Potassium 4.0 (3.5-5.1) mEq/L Chloride 101 (98-107) mEq/L Carbon Dioxide 27 (23-29) mEq/L BUN 18 (8-23) mg/dL Creatinine 0.85 (0.60-1.20) mg/dL Glucose 142 H (70-105) mg/dL Calcium 9.4 (8.6-10.3) mg/dL
--- NOTE | 2019-06-10 10:18 | Discharge Summary ---
- NOTES TO OUTPATIENT PROVIDER Notes to Outpatient Provider: Patient to finish course of IV ertapenam for complicated UTI. Will need follow-up with urology as outpatient in 4-6 weeks. Orders not resulted at time of discharge: Pending orders 06/07/19 22:16 Culture,Blood [BC] Stat 06/08/19 10:19 Urinalysis reflex Microscopic [URIN] Routine Date of Encounter: 06/10/19 Time of Encounter: 10:18 - Discharge Diagnosis (1) DVT prophylaxis Priority: Secondary Status: Acute (2) UTI (urinary tract infection) Priority: Primary Status: Acute Qualifiers: Urinary tract infection type: acute cystitis Hematuria presence: with hematuria Qualified Code(s): N30.01 - Acute cystitis with hematuria (3) Diabetes Priority: Secondary Status: Chronic Qualifiers: Diabetes mellitus type: type 2 Diabetes mellitus long-term insulin use: without long-term use Diabetes mellitus complication status: with hyperglycemia Qualified Code(s): E11.65 - Type 2 diabetes mellitus with hyperglycemia (4) Altered mental status Priority: Primary Status: Acute Qualifiers: Altered mental status type: somnolence Qualified Code(s): R40.0 - Somnolence (5) Failure of outpatient treatment Priority: Primary Status: Acute (6) Complicated UTI (urinary tract infection) Priority: Primary Status: Acute (7) Retained ureteral stent Priority: Primary Status: Acute Hospital course: Ms. Hardy is a 79 year old female with past medical history of diabetes, hypertension, Parkinson's, anxiety and depression came in with confusion. Patient recently had UTI and a stent placed due to hydronephrosis from nephrolithiasis. Patient's urinalysis was unremarkable and was empirically started on ertapenam based on her last antibiotics sensitivity. CT scan of the abdomen was obtained which showed retained right ureteral stent in place with mild to moderate right hydronephrosis. Urology was consulted for hydronephrosis associated with stent. Per urology there was no significant need for stent anymore and it was to be more before. Unclear reason why was not removed probably due to poor follow-up. Patient had her stent removed per urology. Repeat urine culture was not helpful given it was a poor sample. Given complicated UTI and a stent we will treat the patient with IV ertapenam for total 10 days to reduce colonization and repeated infections. Patient had IV access obtained and she was stable to be discharged to home with home health. Discharge discussed with: patient, nurse, social work - Time Spent with Patient Total time spent providing and/or coordinating discharge services: Time spent: Greater than 30 minutes (35) - Discharge Medications Prescriptions: New Ertapenem [INVanz] 1,000 mg IV DAILY 7 Days #7 vial Continued Metformin HCl [Glucophage] 1,000 mg PO DAILY Potassium Chloride [K-Tab ER] 20 meq PO BID Glimepiride [Amaryl] 4 mg PO QAM FLUoxetine HCl [Fluoxetine HCl] 40 mg PO DAILY Amlodipine Besylate 10 mg PO DAILY Magnesium Oxide [Magnesium] 400 mg PO DAILY Metoprolol Tartrate 50 mg PO BID Prevagen 1 cap PO DAILY Sucralfate [Carafate] 1 gm PO QAM Aspirin Enteric Coated [Aspirin EC] 81 mg PO DAILY Docusate [Colace] 100 mg PO DAILY PRN PRN Reason: Constipation Omeprazole [PriLOSEC] 20 mg PO DAILY Home Medications: FLUoxetine HCl [Fluoxetine HCl] 40 mg PO DAILY 10/02/17 [History] Glimepiride [Amaryl] 4 mg PO QAM 10/02/17 [History] Metformin HCl [Glucophage] 1,000 mg PO DAILY 10/02/17 [History] Potassium Chloride [K-Tab ER] 20 meq PO BID 10/02/17 [History] Amlodipine Besylate 10 mg PO DAILY 03/11/19 [History] Magnesium Oxide [Magnesium] 400 mg PO DAILY 03/11/19 [History] Metoprolol Tartrate 50 mg PO BID 03/11/19 [History] Prevagen 1 cap PO DAILY 03/11/19 [History] Sucralfate [Carafate] 1 gm PO QAM 03/11/19 [History] Aspirin Enteric Coated [Aspirin EC] 81 mg PO DAILY 06/09/19 [History] Docusate [Colace] 100 mg PO DAILY PRN 06/09/19 [History] Ertapenem [INVanz] 1,000 mg IV DAILY 7 Days #7 vial 06/09/19 [Rx] Omeprazole [PriLOSEC] 20 mg PO DAILY 06/09/19 [History] Allergies/Adverse Reactions: Allergy/AdvReac Type Severity Reaction Status Date / Time RODGER Inhibitors AdvReac See Verified 06/07/19 21:50 Comments ampicillin AdvReac See Verified 06/07/19 21:50 Comments lisinopril AdvReac See Verified 06/07/19 21:50 Comments tetracycline [Tetracycline] AdvReac See Verified 06/07/19 21:50 Comments Date of admission: 06/09/19 11:02 Primary care physician: Philippe Scott Jr, MD Consults: 06/08/19 14:31 Consult to Urology [CONS] Routine Consulting Provider: Urology Lyly Reason for Consult: ureteral stent Call Completed: Yes 06/09/19 17:24 Consult to Invasive Line Access Team [CONS] Routine Reason for Consult: Picc Line Insertion Line Type: EPIV 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 somewhat flat affect Respiratory exam: CTAB. no accessory muscle use, rales, rhonchi, wheezes Cardiovascular exam: RRR, +S1, +S2. no murmur, gallop, rubs. GI/Abdominal exam: Non-tender, Non-distended, normal bowel sounds, soft, no peritoneal signs. Has colosctomy in place. Extremities exam: no pedal edema, pulses palpable in b/l lower extremities. no calf tenderness Neurological exam: CN II-XII intact, AO X2, no focal deficits. Skin exam: No skin rash - Patient Status Disposition: Home Health Service Condition: Good - Discharge Instructions Follow Up With: Philippe Scott Jr, MD [Primary Care Provider] - (Please call Sunday to schedule hospital follow up appointment for 7-10 days from date of discharge.) Additional Instructions: Home Health has been arranged for administering IV Antibiotics. They will be out tomorrow morning between 9-10am. If you need to contact them please call #[phone]. - Diet and Activity Activity: as per physical therapy
--- NOTE | 2019-06-10 11:03 | Physician Discharge Referral ---
Home Health/Hosp Referral Info Transfer to: Home Health - Diagnosis (1) DVT prophylaxis Status: Acute (2) UTI (urinary tract infection) Status: Acute (3) Diabetes Status: Chronic (4) Altered mental status Status: Acute (5) Failure of outpatient treatment Status: Acute (6) Complicated UTI (urinary tract infection) Status: Acute (7) Retained ureteral stent Status: Acute - Respiratory Orders Smoking Cessation: Smoking cessation has been advised. For more information, call the [place] Tobacco Quit Line at 0-756-UBPG-NOW. - Services Needed Following services are medically necessary services: Nursing, Physical Therapy, Occupational Therapy - Transfer Medications Prescriptions: Ertapenem [INVanz] 1,000 mg IV DAILY 7 Days #7 vial Home Medications: FLUoxetine HCl [Fluoxetine HCl] 40 mg PO DAILY 10/02/17 [History] Glimepiride [Amaryl] 4 mg PO QAM 10/02/17 [History] Metformin HCl [Glucophage] 1,000 mg PO DAILY 10/02/17 [History] Potassium Chloride [K-Tab ER] 20 meq PO BID 10/02/17 [History] Amlodipine Besylate 10 mg PO DAILY 03/11/19 [History] Magnesium Oxide [Magnesium] 400 mg PO DAILY 03/11/19 [History] Metoprolol Tartrate 50 mg PO BID 03/11/19 [History] Prevagen 1 cap PO DAILY 03/11/19 [History] Sucralfate [Carafate] 1 gm PO QAM 03/11/19 [History] Aspirin Enteric Coated [Aspirin EC] 81 mg PO DAILY 06/09/19 [History] Docusate [Colace] 100 mg PO DAILY PRN 06/09/19 [History] Ertapenem [INVanz] 1,000 mg IV DAILY 7 Days #7 vial 06/09/19 [Rx] Omeprazole [PriLOSEC] 20 mg PO DAILY 06/09/19 [History] Allergies/Adverse Reactions: Allergy/AdvReac Type Severity Reaction Status Date / Time RODGER Inhibitors AdvReac See Verified 06/07/19 21:50 Comments ampicillin AdvReac See Verified 06/07/19 21:50 Comments lisinopril AdvReac See Verified 06/07/19 21:50 Comments tetracycline [Tetracycline] AdvReac See Verified 06/07/19 21:50 Comments Certification: Further, I certify that my clinical findings support that this patient is homebound (i.e. absences from home require considerable and taxing effort and are for medical reasons or anglican services or infrequently or short duration when for other reasons) because: Homebound Reason: Patient requires assistance of a person or device to safely leave home Attestation: My signature below is to certify that this patient is under my care and that I, or nurse practitioner, or a physician's educational assistant teacher working with me, has a [id number] encounter with this patient.
== END 2019-06-10 11:36 | disposition home health service (06) | DRG 699 ==
LOC: 3BNU 21:43 → EMEROOARM 21:43 → SUATTDRO 06-08 00:18 → 3BNU 06-08 01:32
PROVIDERS: ADMIT Family Medicine; ATTEND Internal Medicine

== ENCOUNTER 2019-08-02 15:52 | Inpatient (IN) ==
[2019-08-02] MEDS ORDERED: 0.9 % Sodium Chloride 1,000 ML IVC ONE (16:32)
[2019-08-02] MEDS ORDERED: Ondansetron 4 MG/2 ML VIAL IVP ONE (16:32)
[2019-08-02 17:07] LABS: Bilirubin,Urine Negative (Negative); Blood,Urine Moderate (Negative); Clarity,Urine Cloudy (Clear); Color,Urine Yellow (Yellow); Glucose,Urine (UA) Normal (Normal); Ketones,Urine Negative (Negative); Leukocyte Esterase,Urine Negative (Negative); Nitrite,Urine Negative (Negative); PH,Urine 5.5 pH Units (5.0-8.0); Protein,Urine 100 mg/dL (Neg-Trace); Specific Gravity,Urine 1.023 (1.010-1.025); Urobilinogen,Urine Normal (Normal)
[2019-08-02 17:09] LABS: Bacteria,Urine None Seen per hpf (None-Few); Hyaline Casts,Urine None Seen per lpf (None-Few); Squamous Epithelial Cell,Urine Moderate per lpf (None-Few); WBC,Urine 0-3 per hpf (0-3)
--- NOTE | 2019-08-02 18:17 | Emergency Department Note ---
Disposition Clinical Impression: Weakness, Dehydration Disposition: Admitted As Inpatient Condition: Fair Time of Disposition: 20:49 General Adult HPI - General Chief complaint: ED Nausea/Vomiting/Diarrhea Stated complaint: UTI, vomiting Time Seen by Provider: 08/02/19 16:12 Source: patient, family Mode of arrival: wheelchair Limitations: no limitations Nursing Notes Reviewed: Yes Vital Signs Reviewed: Yes - History of Present Illness HPI Narrative: 79-year-old female complex past medical history including dementia, frequent urinary tract infections, and colectomy due to complicated diverticulitis presenting to the emergency department chief complaint of nausea, vomiting and loose stools in her colostomy bag. According to at bedside for the past week patient has been progressively more weak and seems more altered to him than baseline. He states this normally happens when she has a urinary tract infection. He does state patient was placed on a new medication, fluconazole approximately 2 weeks ago for a fungal infection around the colostomy site. He states he thinks this medication is making her ill. No fevers, chest pain or shortness of breath at home. Pain Scale: 0 - Related Data Home Medications Medication Instructions Recorded Confirmed FLUoxetine HCl [Fluoxetine HCl] 40 mg PO DAILY 10/02/17 08/02/19 Glimepiride [Amaryl] 4 mg PO QAM 10/02/17 08/02/19 Metformin HCl [Glucophage] 1,000 mg PO BID 10/02/17 08/02/19 Potassium Chloride [K-Tab ER] 20 meq PO BID 10/02/17 08/02/19 Amlodipine Besylate 10 mg PO DAILY 03/11/19 08/02/19 Magnesium Oxide [Magnesium] 400 mg PO DAILY 03/11/19 08/02/19 Metoprolol Tartrate 50 mg PO BID 03/11/19 08/02/19 Sucralfate [Carafate] 1 gm PO QAM 03/11/19 08/02/19 Aspirin Enteric Coated [Aspirin EC] 81 mg PO DAILY 06/09/19 08/02/19 Docusate [Colace] 100 mg PO DAILY PRN 06/09/19 08/02/19 Omeprazole [PriLOSEC] 20 mg PO DAILY 06/09/19 08/02/19 Allergies Allergy/AdvReac Type Severity Reaction Status Date / Time RODGER Inhibitors AdvReac See Verified 06/07/19 21:50 Comments ampicillin AdvReac See Verified 06/07/19 21:50 Comments lisinopril AdvReac See Verified 06/07/19 21:50 Comments tetracycline [Tetracycline] AdvReac See Verified 06/07/19 21:50 Comments All systems ED: reviewed and negative except as stated. Constitutional: Denies: fever Eyes: Reports: as per HPI ENT ED: Reports: as per HPI Cardiovascular: Denies: chest pain Respiratory: Denies: dyspnea Gastrointestinal: Reports: nausea, vomiting, diarrhea Genitourinary: Reports: as per HPI Musculoskeletal: Reports: as per HPI Integumentary: Reports: as per HPI Neurological: Reports: as per HPI Psychiatric: Reports: as per HPI Endocrine: Reports: as per HPI Hematological/Lymphatic: Reports: as per HPI Allergic/Immunologic: Reports: as per HPI Past Medical History - Past Medical History Attestation: Yes The following information was validated with the patient. 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 Absent: respiratory distress, wheezes - Cardiovascular Cardiovascular exam: Present: regular rate, normal rhythm, normal heart sounds - Abdominal Exam Abdominal exam: Present: soft, Non-Tender. Absent: distention, guarding, rebound - Extremities Exam Extremities exam: Present: full ROM - Neurological Exam Neurological exam: Present: alert - Psychiatric Psychiatric exam: Present: normal affect - Skin Skin exam: Present: warm Course Course Narrative: 79-year-old female presenting for nausea, vomiting, loose stools and altered mental status. In the room she is alert and hemodynamically stable. She does have some confusion and conversation but is able to appropriately answer most questions. Nonfocal neurological exam. No histories of falls or trauma. Physical exam does show loose, greenish colored stool from her colostomy bag. Concern for urinary tract infection possible C. difficile or other intra- abdominal pathology. We will obtain basic labs, urine analysis, CT of abdomen and pelvis. Disposition pending. - Reevaluation(s) Reevaluation #1: Patient's laboratory analysis shows mild hyponatremia and mild hyperkalemia. A liter of fluids will be given to the patient. Otherwise unchanged from baseline. Urinalysis shows no infection. CT of the abdomen and pelvis and chest x-ray showed no acute abnormality. Patient continues to be weak and slightly altered when compared to baseline according to . At this time will plan to admit the patient for further workup and treatment of her generalized weakness. I spoke with the hospitalist on-call who would like a CT of the head to be completed. This will be added and then patient will be admitted. Patient remains hemodynamically stable Reevaluation #2: Patient CT of the head within normal limits. Patient will be admitted to the hospital at this point for further evaluation and treatment of her weakness dehydration. Vital Signs Temperature 98.5 F 08/02/19 16:10 Pulse Rate 84 08/02/19 16:10 Respiratory Rate 18 08/02/19 16:10 Blood Pressure 118/73 08/02/19 16:10 O2 Sat by Pulse Oximetry 99 08/02/19 16:10 Temperature 98.5 F 08/02/19 17:12 Pulse Rate 71 08/02/19 17:45 Respiratory Rate 16 08/02/19 17:45 Blood Pressure 136/71 08/02/19 17:45 O2 Sat by Pulse Oximetry 99 08/02/19 17:45 Oxygen Delivery Oxygen Delivery Room Air Medical Decision Making - Lab Data Result diagrams: 08/02/19 16:32 08/02/19 16:32 Lab Results 08/02/19 08/02/19 08/02/19 Range/Units 16:32 16:32 16:32 WBC 1.9 L (4.3-11.1) K/mcL RBC 3.99 (3.82-4.97) M/mcL Hgb 11.6 (11.5-15.4) g/dL Hct 36.9 (35.3-44.9) % MCV 92.5 (83.0-100.0) fL MCH 29.1 (28.0-33.3) pg MCHC 31.4 L (31.6-35.5) g/dL RDW 14.8 H (11.5-14.5) % Plt Count 269 (140-400) K/mcL MPV 10.7 (9.4-12.4) fL Immature Gran % 0.0 (0-4) % Seg Neutrophils % 13.4 % Lymphocytes % 44.6 % Monocytes % 28.5 % Eosinophils % 12.4 % Basophils % 1.1 % Neutrophils # 0.3 L (1.6-8.9) K/mcL Lymphocytes # 0.9 (0.6-4.6) K/mcL Monocytes # 0.5 (0.0-1.3) K/mcL Eosinophils # 0.2 (0.0-0.6) K/mcL Basophils # 0.0 (0.0-0.2) K/mcL Platelet Estimate Normal (Normal) PT 11.2 (9.4-12.1) Seconds INR 1.0 APTT 31.2 (26.0-36.0) Seconds Sodium 130 L (136-145) mEq/L Potassium 5.4 H (3.5-5.1) mEq/L Chloride 103 (98-107) mEq/L Carbon Dioxide 18 L (23-29) mEq/L BUN 29 H (8-23) mg/dL Creatinine 1.15 (0.60-1.20) mg/dL Est GFR ( Amer) 55 L (> 60) Est GFR (Non-Af Amer) 46 L (> 60) BUN/Creatinine Ratio 25 (6-26) Glucose 110 H (70-105) mg/dL Calculated Osmolality 276 L (280-300) Lactic Acid (0.5-2.2) mmol/L Calcium 10.7 H (8.6-10.3) mg/dL Total Bilirubin 0.3 (0.3-1.0) mg/dL Direct Bilirubin 0.0 (0.0-0.2) mg/dL Indirect Bilirubin 0.3 (0.0-1.2) mg/dL AST 23 (13-39) Units/L ALT 13 (7-52) Units/L Alkaline Phosphatase 100 (34-104) Units/L Troponin I < 0.03 (< 0.04) ng/mL Serum Total Protein 8.1 (6.4-8.9) g/dL Albumin 3.9 (3.5-5.7) g/dL Globulin 4.2 H (2.4-3.5) g/dL Albumin/Globulin Ratio 0.9 L (1.1-2.2) Lipase 22 (11-82) Units/L Urine Color (Yellow) Urine Clarity (Clear) Urine pH (5.0-8.0) pH Units Ur Specific [place] (1.010-1.025) Urine Protein (Neg-Trace) mg/dL Urine Glucose (UA) (Normal) mg/dL Urine Ketones (Negative) mg/dL Urine Blood (Negative) Urine Nitrite (Negative) Urine Bilirubin (Negative) Urine Urobilinogen (Normal) mg/dL Ur Leukocyte Esterase (Negative) Urine Microscopic RBC (0-3) per hpf Urine Microscopic WBC (0-3) per hpf Ur Squamous Epith Cells (None-Few) per lpf Urine Bacteria (None-Few) per hpf Hyaline Casts (None-Few) per lpf Ur Culture Indicated? (NO) 08/02/19 08/02/19 Range/Units 16:57 18:22 WBC (4.3-11.1) K/mcL RBC (3.82-4.97) M/mcL Hgb (11.5-15.4) g/dL Hct (35.3-44.9) % MCV (83.0-100.0) fL MCH (28.0-33.3) pg MCHC (31.6-35.5) g/dL RDW (11.5-14.5) % Plt Count (140-400) K/mcL MPV (9.4-12.4) fL Immature Gran % (0-4) % Seg Neutrophils % % Lymphocytes % % Monocytes % % Eosinophils % % Basophils % % Neutrophils # (1.6-8.9) K/mcL Lymphocytes # (0.6-4.6) K/mcL Monocytes # (0.0-1.3) K/mcL Eosinophils # (0.0-0.6) K/mcL Basophils # (0.0-0.2) K/mcL Platelet Estimate (Normal) PT (9.4-12.1) Seconds INR APTT (26.0-36.0) Seconds Sodium (136-145) mEq/L Potassium (3.5-5.1) mEq/L Chloride (98-107) mEq/L Carbon Dioxide (23-29) mEq/L BUN (8-23) mg/dL Creatinine (0.60-1.20) mg/dL Est GFR ( Amer) (> 60) Est GFR (Non-Af Amer) (> 60) BUN/Creatinine Ratio (6-26) Glucose (70-105) mg/dL Calculated Osmolality (280-300) Lactic Acid 1.0 (0.5-2.2) mmol/L Calcium (8.6-10.3) mg/dL Total Bilirubin (0.3-1.0) mg/dL Direct Bilirubin (0.0-0.2) mg/dL Indirect Bilirubin (0.0-1.2) mg/dL AST (13-39) Units/L ALT (7-52) Units/L Alkaline Phosphatase (34-104) Units/L Troponin I (< 0.04) ng/mL Serum Total Protein (6.4-8.9) g/dL Albumin (3.5-5.7) g/dL Globulin (2.4-3.5) g/dL Albumin/Globulin Ratio (1.1-2.2) Lipase (11-82) Units/L Urine Color Yellow (Yellow) Urine Clarity Cloudy A (Clear) Urine pH 5.5 (5.0-8.0) pH Units Ur Specific [place] 1.023 (1.010-1.025) Urine Protein 100 H (Neg-Trace) mg/dL Urine Glucose (UA) Normal (Normal) mg/dL Urine Ketones Negative (Negative) mg/dL Urine Blood Moderate H (Negative) Urine Nitrite Negative (Negative) Urine Bilirubin Negative (Negative) Urine Urobilinogen Normal (Normal) mg/dL Ur Leukocyte Esterase Negative (Negative) Urine Microscopic RBC 5-15 H (0-3) per hpf Urine Microscopic WBC 0-3 (0-3) per hpf Ur Squamous Epith Cells Moderate H (None-Few) per lpf Urine Bacteria None Seen (None-Few) per hpf Hyaline Casts None Seen (None-Few) per lpf Ur Culture Indicated? NO (NO) - EKG Data EKG #1 EKG attestation: Yes I reviewed and interpreted this EKG. EKG results narrative: Sinus rhythm. 71 bpm. LA interval 233, QRS 101, QTC 451. No sign of acute ST segment elevation or ischemia. Compared to previous EKG completed on 06/07/2018 no significant changes noted Attestation Statement - Attestation Attestation: I, Kiran Ferrell, examined this patient and my medical decision-making was reviewed with the DESIGN ENGINEER/PA/Advanced Practice Nurse/Resident Physician. I agree with the documented findings, disposition and treatment plan as described except to the extent set forth below. 79-year-old female presents emergency Department with concerns of altered mental status, questionable urinary tract infection. The states the patient is more confused and weak and her baseline. He states that this is generally what happens with urinary tract infections. He states that she has vomited every day over the past few days, he describes as nonbilious and nonbloody. Patient denies recent trauma. Patient does have a large amount of liquid output into her colostomy bag. Patient has a history of C. difficile. Patient denies chest pain or shortness of breath. Laboratory evaluation shows hyponatremia, hyperkalemia. She does not have an obvious urinary tract infection on urinalysis. Patient and family were updated regarding imaging and laboratory results. Patient will be admitted to the hospitalist for further care and evaluation of weakness, fatigue, vomiting.
[2019-08-02 18:36] LABS: Hemoglobin 11.6 g/dL (11.5-15.4)
[2019-08-02 18:37] LABS: Basophils % 1.1 %; Eosinophils # 0.2 K/mcL (0.0-0.6); Eosinophils % 12.4 %; Hematocrit 36.9 % (35.3-44.9); Lymphocytes % 44.6 %; Mean Corpuscular HGB Conc 31.4 g/dL (31.6-35.5); Mean Corpuscular Hemoglobin 29.1 pg (28.0-33.3); Mean Corpuscular Volume 92.5 fL (83.0-100.0); Mean Platelet Volume 10.7 fL (9.4-12.4); Monocytes # 0.5 K/mcL (0.0-1.3); Monocytes % 28.5 %; Neutrophils # 0.3 K/mcL (1.6-8.9); Platelet Count 269 K/mcL (140-400); Red Blood Count 3.99 M/mcL (3.82-4.97); Red Cell Distribution Width 14.8 % (11.5-14.5); Segmented Neutrophils % 13.4 %; White Blood Count 1.9 K/mcL (4.3-11.1)
[2019-08-02 18:38] LABS: Lymphocytes # 0.9 K/mcL (0.6-4.6)
[2019-08-02 18:43] LABS: Prothrombin Time 11.2 Seconds (9.4-12.1)
[2019-08-02 18:46] LABS: Activated Partial Thrombo Time 31.2 Seconds (26.0-36.0)
[2019-08-02 18:59] LABS: Platelet Estimate Normal (Normal)
[2019-08-02 19:00] LABS: Alanine Aminotransferase 13 Units/L (7-52); Albumin 3.9 g/dL (3.5-5.7); Albumin/Globulin Ratio 0.9 (1.1-2.2); Alkaline Phosphatase 100 Units/L (34-104); Aspartate Amino Transferase 23 Units/L (13-39); BUN/Creatinine Ratio 25 (6-26); Bilirubin,Indirect 0.3 mg/dL (0.0-1.2); Bilirubin,Total 0.3 mg/dL (0.3-1.0); Blood Urea Nitrogen 29 mg/dL (8-23); Calcium 10.7 mg/dL (8.6-10.3); Carbon Dioxide 18 mEq/L (23-29); Chloride 103 mEq/L (98-107); Globulin 4.2 g/dL (2.4-3.5); Glucose 110 mg/dL (70-105); Lipase 22 Units/L (11-82); Osmolality,Calculated 276 (280-300); Potassium 5.4 mEq/L (3.5-5.1); Sodium 130 mEq/L (136-145); Total Protein 8.1 g/dL (6.4-8.9); Troponin I < 0.03 ng/mL (< 0.04); eGFR For African Americans 55 (> 60); eGFR For Non-African Americans 46 (> 60)
--- NOTE | 2019-08-02 21:04 | Internal Med History&Physical ---
Date of Encounter: 08/02/19 Time of Encounter: 20:54 Internal Medicine - H&P: HPI Chief complaint: Weakness Admitted From: Home Plans for Post Hospital Care: Home History of present illness: Ms. Hardy is a 79 year old female with past medical history of type 2 diabetes, hypertension, Parkinson's disease, anxiety and depression presented to the ED with her spouse for weakness. Patient's spouse reported the patient's baseline is able to ambulate with using a cane and tolerate oral intake without difficulties. However the past few days has been mostly laying in bed with needing a walker with assistance constant with no alleviating or exacerbating factor. Patient the past 2 days has been also vomiting and nausea at least 10 times running intermittently for an hour that improved the next day and then return today. There has been no change in colostomy output and usually changes it 4 times daily, no coughing, fever, chills, chest pain, shortness or breath, dysuria. Patient has history of recurrent UTI in the past but no and had a right urethra removed in the past. Patient otherwise admits to low oral intake and has only been drinking water with no food and the spouse is very concerned. Reviewed patient's past medical, surgical, social and family history. CODE STATUS is DNR/DNI Past Med Surg Social Fam HX - Past Medical History Medical history: diabetes, hypertension Additional medical history: Parkinson's. IBS Psychiatric history: anxiety, depression - Past Surgical History Surgical History: cataract, cholecystectomy, colectomy, colostomy, herniorrhaphy, knee replacement, ureteral stent Additional surgical history: kidney surgery/kidney stone-2014. femur fx-2017. kidney stent - Social History Smoking Status: Never smoker Smokeless Tobacco Status: No Alcohol use: none Drug use: none - Family History Son Adopted: No Living Status: Still Living Hx Family Cardiac Disorders: No Hx Family Respiratory Disorders: Yes Hx Family Cancer: No Hx Family GI Disorders: No Hx Family Endocrine Disorder: No Hx Family Neuromuscular Disorders: No Hx Family Neurologic Disorders: No Hx Family HEENT Disorders: No Hx Family Autoimmune Disorders: Yes (Autoimmune dx, unable to remember name) Father Living Status: Hx Family Cardiac Disorders: Yes (PA, HD, HTN) Mother Living Status: Hx Family Cardiac Disorders: Yes (HD) Brother Living Status: Hx Family Cardiac Disorders: Yes (PA, HD) Internal Medicine - H&P: Meds FLUoxetine HCl [Fluoxetine HCl] 40 mg PO DAILY 10/02/17 [History] Glimepiride [Amaryl] 4 mg PO QAM 10/02/17 [History] Metformin HCl [Glucophage] 1,000 mg PO DAILY 10/02/17 [History] Potassium Chloride [K-Tab ER] 20 meq PO BID 10/02/17 [History] Amlodipine Besylate 10 mg PO DAILY 03/11/19 [History] Magnesium Oxide [Magnesium] 400 mg PO DAILY 03/11/19 [History] Metoprolol Tartrate 50 mg PO BID 03/11/19 [History] Prevagen 1 cap PO DAILY 03/11/19 [History] Sucralfate [Carafate] 1 gm PO QAM 03/11/19 [History] Aspirin Enteric Coated [Aspirin EC] 81 mg PO DAILY 06/09/19 [History] Docusate [Colace] 100 mg PO DAILY PRN 06/09/19 [History] Ertapenem [INVanz] 1,000 mg IV DAILY 7 Days #7 vial 06/09/19 [Rx] Omeprazole [PriLOSEC] 20 mg PO DAILY 06/09/19 [History] Allergy/AdvReac Type Severity Reaction Status Date / Time RODGER Inhibitors AdvReac See Verified 06/07/19 21:50 Comments ampicillin AdvReac See Verified 06/07/19 21:50 Comments lisinopril AdvReac See Verified 06/07/19 21:50 Comments tetracycline [Tetracycline] AdvReac See Verified 06/07/19 21:50 Comments All Systems PM: A 10-system review of systems was performed and is negative for pertinent fin dings except as documented above in the HPI. Review of systems: General: No unintentional weightloss, No fever Head: No headahce, No injury. Ears: No discharge, No earache Eyes: No drainage, No eye pain Mouth and Throat: No new ulcers, No pain Nose and Sinus: No new congestion, No pain, Respiratory: No cough, No sputum production, No dyspnea Cardiovascular: No chest pain, No palpitations. Gastrointestinal: + nausea, + vomiting. No abdominal pain. Genital Tract: No discharge, No pain Urinary Tract: No dysuria, No discharge. MSK: No new/worsening joint pain, No new/worsening muscle ache. Endocrine: No cold intolerance, No polyuria Psychological: No suicidal, No homocidal ideation. - Constitutional Vitals: Temp Pulse Resp BP Pulse Ox 98.5 F 71 16 136/71 99 08/02/19 17:12 08/02/19 17:45 08/02/19 17:45 08/02/19 17:45 08/02/19 17:45 Exam: General Appearance: Appearing as age, malnourished in mild acute distress. Head: Atraumatic normocephalic Skin: Normal texture, normal turgor, warm, dry. Eyes: Conjunctivae pale with no erythema, drainage, or ulcers. Anicteric. Neck: No Lymphadenopathy in the anterior/posterior cervical chain. No thyromegaly, masses or ulcers. Trachea midline. Heart: RRR, no murmurs. Capillary refill 3 seconds Lungs: No accessory muscle usage, lungs clear to auscultation bilaterally, no wheezes or crackles. Extremities: No pitting edema, No clubbing, No cyanosis. Abdomen: Non-distended, normoactive bowel sounds. non-tender to palpation, co lostomy bag present with no dark red blood or black stools. No epigastric tenderness. Negative McBurney tenderness, negative Rovsing sign, negative Maya sign. no hepatomegally. No guarding. Right abdominal wall atrophy comparing to the left Neuro: AOx3 with no new sensory loss or focal deficits. MSK: Strength 5/5 Upper extremity equal bilaterally. Strength 5/5 Lower extremity equal bilaterally Internal Med - H&P Results - Labs CBC & Chem 7: 08/02/19 16:32 08/02/19 16:32 Labs: Short CBC 08/02/19 Range/Units 16:32 WBC 1.9 L (4.3-11.1) K/mcL Hgb 11.6 (11.5-15.4) g/dL Hct 36.9 (35.3-44.9) % Plt Count 269 (140-400) K/mcL Neutrophils # 0.3 L (1.6-8.9) K/mcL BMP 08/02/19 16:32 Sodium 130 L Potassium 5.4 H Chloride 103 Carbon Dioxide 18 L BUN 29 H Creatinine 1.15 Glucose 110 H Calcium 10.7 H Cardiac Enzymes 08/02/19 Range/Units 16:32 Troponin I < 0.03 (< 0.04) ng/mL Liver Function 08/02/19 Range/Units 16:32 Total Bilirubin 0.3 (0.3-1.0) mg/dL Direct Bilirubin 0.0 (0.0-0.2) mg/dL AST 23 (13-39) Units/L ALT 13 (7-52) Units/L Alkaline Phosphatase 100 (34-104) Units/L Albumin 3.9 (3.5-5.7) g/dL Urine 08/02/19 Range/Units 16:57 Urine Color Yellow (Yellow) Urine Clarity Cloudy A (Clear) Urine pH 5.5 (5.0-8.0) pH Units Ur Specific [place] 1.023 (1.010-1.025) Urine Protein 100 H (Neg-Trace) mg/dL Urine Glucose (UA) Normal (Normal) mg/dL - Impressions ITS Impressions Abdomen/Pelvis CT 08/02/19 17:45 IMPRESSION: 1. No acute abdominal or pelvic abnormality on this unenhanced study. 2. Interval removal right ureteral stent with interval improvement in right hydronephrosis. Otherwise stable exam from 06/08/2019. D/ / 08/02/2019 17:55:40 Liliam Vega MD / josé Interpreting Provider: Liliam Vega MD Chest X-Ray 08/02/19 18:40 IMPRESSION: No acute cardiopulmonary disease. D/ / 08/02/2019 18:51:08 Manjinder Nicolas MD / josé Interpreting Provider: Manjinder Nicolas MD Head CT 08/02/19 20:40 IMPRESSION: No acute intracranial abnormality. Chronic microvascular ischemic changes and global cerebral atrophy. D/ / Pop Tracey MD / Pop Tracey MD Interpreting Provider: Pop Tracey MD - Summary of Assessment and Plan Summary of Assessment and Plan: 1.Nausea and vomiting: No episodes while in the ED or hospitalization. Labs does not show hypokalemic hypochloremic metabolic alkalosis. VBG ordered. Zofran for nausea, continue to monitor. 2.Neutropenia:asymptomatic HIV, anemia panel, peripheral smear and [place] Reviewed labs and have been persistant. Medication reviewed with no clear cause. Await labs consider heme/onc consultation outpatient. 3.Hypovolemic Hyponatremia: Urine Na, and Osm pending. IVF and recheck 4.HyperKalemia; multifactorial, dehydration, acidosis, kidney disease. No change in creatinine but noted increased BUN. IVF, awaiting vbg. 5.hypercalemia: elevated Calcium Ionized pending. DVT prophylaxis: Heparin Disposition: Observation like less than 2 day stay. - Time Spent With Patient Total time spent is greater than 39 minutes 50% in coordination of care (as doc umented) at patient's floor/unit and/or counseling patient: Greater than 35 minutes
[2019-08-02] MEDS ORDERED: Naloxone 0.4 MG/ML INJ IVP PRN (21:34)
[2019-08-02] MEDS ORDERED: Ondansetron ODT 4 MG TAB.RAPDIS SL PRN (21:34)
[2019-08-02 22:14] LABS: Immature Reticulocyte % 17.1 % (11.0-38.0); Retculocyte # 0.07 M/mcL (0.05-0.10); Reticulocyte % 1.9 % (1.6-2.8)
[2019-08-02 22:15] LABS: VBG Ionized Calcium 1.31 mmol/L (1.15-1.35)
[2019-08-02 22:23] LABS: Prothrombin Time 11.6 Seconds (9.4-12.1)
[2019-08-02 22:33] LABS: Albumin 3.4 g/dL (3.5-5.7); Albumin/Globulin Ratio 0.9 (1.1-2.2); Bilirubin,Direct 0.1 mg/dL (0.0-0.2); Bilirubin,Indirect 0.2 mg/dL (0.0-1.2); Bilirubin,Total 0.3 mg/dL (0.3-1.0); Globulin 3.7 g/dL (2.4-3.5); Phosphorous 2.4 mg/dL (2.7-4.5); Total Protein 7.1 g/dL (6.4-8.9)
[2019-08-02 22:42] LABS: Procalcitonin 0.21 ng/mL (0.00-0.15)
[2019-08-02 22:59] LABS: Folate > 22.3 ng/mL (3.0-16.0); Vitamin B12 407 pg/mL (250-1100)
[2019-08-02] MEDS: *HR* Heparin 5,000 UNIT/ML VIAL SQ SCH (23:22)
[2019-08-02] MEDS: 0.9 % Sodium Chloride 1,000 ML IVC SCH (23:22)
[2019-08-03 04:09] LABS: Eosinophils # 0.2 K/mcL (0.0-0.6); Eosinophils % 10.6 %; Hematocrit 34.4 % (35.3-44.9); Immature Granulocytes % 0.5 % (0-4); Lymphocytes # 0.9 K/mcL (0.6-4.6); Lymphocytes % 40.9 %; Mean Corpuscular Hemoglobin 29.6 pg (28.0-33.3); Mean Corpuscular Volume 92.5 fL (83.0-100.0); Mean Platelet Volume 10.6 fL (9.4-12.4); Monocytes # 0.5 K/mcL (0.0-1.3); Monocytes % 21.6 %; Neutrophils # 0.5 K/mcL (1.6-8.9); Platelet Count 215 K/mcL (140-400); Red Blood Count 3.72 M/mcL (3.82-4.97); Red Cell Distribution Width 14.7 % (11.5-14.5); Segmented Neutrophils % 25.4 %; White Blood Count 2.1 K/mcL (4.3-11.1)
[2019-08-03 04:27] LABS: BUN/Creatinine Ratio 23 (6-26); Blood Urea Nitrogen 24 mg/dL (8-23); Calcium 9.5 mg/dL (8.6-10.3); Carbon Dioxide 19 mEq/L (23-29); Chloride 109 mEq/L (98-107); Glucose 88 mg/dL (70-105); Magnesium 1.1 mg/dL (1.6-2.6); Osmolality,Calculated 285 (280-300); Phosphorous 2.9 mg/dL (2.7-4.5); Potassium 4.2 mEq/L (3.5-5.1); Sodium 136 mEq/L (136-145); eGFR For African Americans > 60 (> 60); eGFR For Non-African Americans 50 (> 60)
[2019-08-03 04:32] LABS: Platelet Estimate Normal (Normal)
[2019-08-03 05:08] LABS: HIV-1&2 Antibody & p24 Ag Nonreactive (Nonreactive)
[2019-08-03] MEDS: *HR* Heparin 5,000 UNIT/ML VIAL SQ SCH ×3 (06:00→21:57)
[2019-08-03] MEDS ORDERED: Dextrose Gel 15 GM/37.5 ML TUBE PO PRN ×2 (08:19)
[2019-08-03] MEDS ORDERED: D5% in Water 1,000 ML IVC PRN (08:19)
[2019-08-03] MEDS ORDERED: *HR* Dextrose 50 % in Water (Syg) 50 ML SYRINGE IVP PRN (08:19)
[2019-08-03] MEDS: 0.9 % Sodium Chloride 1,000 ML IVC SCH (10:13)
[2019-08-03] MEDS: Aspirin Enteric Coated 81 MG Tablet PO SCH (10:13)
[2019-08-03] MEDS: Sucralfate 1 GM TABLET PO SCH (10:14)
[2019-08-03] MEDS: amLODIPine 5 MG TABLET PO SCH (10:14)
[2019-08-03] MEDS: Magnesium Oxide 400 MG TABLET PO SCH (10:14)
[2019-08-03] MEDS: FLUoxetine 20 MG CAPSULE PO SCH (10:14)
--- NOTE | 2019-08-03 11:02 | Internal Med Progress Note ---
Hospitalist Progress Note - Encounter Date of Encounter: 08/03/19 Time of Encounter: 11:00 - Subjective Interval History: Ms. Hardy is a 79 year old female with past medical history of type 2 diabetes, hypertension, Parkinson's disease, anxiety and depression presented to the ED with her spouse for weakness. Patient's spouse reported the patient's baseline is able to ambulate with using a cane and tolerate oral intake without difficulties. However the past few days has been mostly laying in bed with needing a walker with assistance constant with no alleviating or exacerbating factor. Patient the past 2 days has been also vomiting and nausea at least 10 times running intermittently for an hour that improved the next day and then return today. There has been no change in colostomy output and usually changes it 4 times daily, no coughing, fever, chills, chest pain, shortness or breath, dysuria. Patient has history of recurrent UTI in the past but no and had a right urethra removed in the past. Patient otherwise admits to low oral intake and has only been drinking water with no food and the spouse is very concerned. Reviewed patient's past medical, surgical, social and family history. CODE STATUS is DNR/DNI. Pt seen and examined in the [facility]. reported mild abd pain and occasional diarrhea. - Exam Vitals: Temp Pulse Resp BP Pulse Ox 98.1 F 87 16 148/72 96 08/03/19 07:57 08/03/19 07:57 08/03/19 07:57 08/03/19 07:57 08/03/19 07:57 Exam: General Appearance: Appearing as age, malnourished in mild acute distress. Head: Atraumatic normocephalic Skin: Normal texture, normal turgor, warm, dry. Eyes: Conjunctivae pale with no erythema, drainage, or ulcers. Anicteric. Neck: No Lymphadenopathy in the anterior/posterior cervical chain. No th yromegaly, masses or ulcers. Trachea midline. Heart: RRR, no murmurs. Capillary refill 3 seconds Lungs: No accessory muscle usage, lungs clear to auscultation bilaterally, no wheezes or crackles. Extremities: No pitting edema, No clubbing, No cyanosis. Abdomen: Non-distended, normoactive bowel sounds. non-tender to palpation, colostomy bag present with no dark red blood or black stools. No epigastric tenderness. Negative McBurney tenderness, negative Rovsing sign, negative Maya sign. no hepatomegally. No guarding. Right abdominal wall atrophy comparing to the left Neuro: AOx3 with no new sensory loss or focal deficits. MSK: Strength 5/5 Upper extremity equal bilaterally. Strength 5/5 Lower extremity equal bilaterally - Assessment and Plan (1) Intractable nausea and vomiting Current Visit: Yes Status: Acute Assessment and Plan: workup showed mild dehydration, low mag level. negative c.diff. Pt symptoms improving. Continue current treatment with IVF. continue monitoring (2) Weakness Current Visit: Yes Status: Acute Assessment and Plan: Pending PT/OT. (3) Essential hypertension Current Visit: No Status: Acute Assessment and Plan: BP controlled, continue current treatment. 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 (5) Type 2 diabetes mellitus Current Visit: No Status: Chronic Assessment and Plan: BG well controlled, continue current treatment. (6) Chronic neutropenia Current Visit: No Status: Chronic Assessment and Plan: stable, outpt f/u with hematology. (7) DVT prophylaxis Current Visit: Yes Status: Acute Assessment and Plan: heparin sq. - Time Spent with Patient Total time spent is greater than 50% in coordination of care (as documented) at patient's floor/unit and/or counseling patient: Greater than 35 minutes Plan of Care Discussed with: patient Internal Medicine: Result - Labs CBC & Chem 7: 08/03/19 03:48 08/03/19 03:48 Labs: Short CBC 08/02/19 08/03/19 Range/Units 16:32 03:48 WBC 1.9 L 2.1 L (4.3-11.1) K/mcL Hgb 11.6 11.0 L (11.5-15.4) g/dL Hct 36.9 34.4 L (35.3-44.9) % Plt Count 269 215 (140-400) K/mcL Neutrophils # 0.3 L 0.5 L (1.6-8.9) K/mcL BMP 08/02/19 08/03/19 16:32 03:48 Sodium 130 L 136 Potassium 5.4 H 4.2 Chloride 103 109 H Carbon Dioxide 18 L 19 L BUN 29 H 24 H Creatinine 1.15 1.06 Glucose 110 H 88 Calcium 10.7 H 9.5 Cardiac Enzymes 08/02/19 08/02/19 08/03/19 Range/Units 16:32 22:00 03:48 Troponin I < 0.03 < 0.03 < 0.03 (< 0.04) ng/mL 08/03/19 Range/Units 09:38 Troponin I < 0.03 (< 0.04) ng/mL Liver Function 08/02/19 08/02/19 Range/Units 16:32 22:00 Total Bilirubin 0.3 0.3 (0.3-1.0) mg/dL Direct Bilirubin 0.0 0.1 (0.0-0.2) mg/dL AST 23 18 (13-39) Units/L ALT 13 11 (7-52) Units/L Alkaline Phosphatase 100 77 (34-104) Units/L Albumin 3.9 3.4 L (3.5-5.7) g/dL Urine 08/02/19 Range/Units 16:57 Urine Color Yellow (Yellow) Urine Clarity Cloudy A (Clear) Urine pH 5.5 (5.0-8.0) pH Units Ur Specific [place] 1.023 (1.010-1.025) Urine Protein 100 H (Neg-Trace) mg/dL Urine Glucose (UA) Normal (Normal) mg/dL - ABG Interpretation ABG results: PT/INR, D-dimer PT 11.6 Seconds (9.4-12.1) 08/02/19 22:00 - Impressions Impressions Abdomen/Pelvis CT 08/02/19 17:45 IMPRESSION: 1. No acute abdominal or pelvic abnormality on this unenhanced study. 2. Interval removal right ureteral stent with interval improvement in right hydronephrosis. Otherwise stable exam from 06/08/2019. D/ / 08/02/2019 17:55:40 Liliam Vega MD / josé Interpreting Provider: Liliam Vega MD Chest X-Ray 08/02/19 18:40 IMPRESSION: No acute cardiopulmonary disease. D/ / 08/02/2019 18:51:08 Manjinder Nicolas MD / josé Interpreting Provider: Manjinder Nicolas MD Head CT 08/02/19 20:40 IMPRESSION: No acute intracranial abnormality. Chronic microvascular ischemic changes and global cerebral atrophy. D/ / Pop Tracey MD / Pop Tracey MD Interpreting Provider: Pop Tracey MD Consult Discharge Plan - Plan Referrals: Philippe Scott Jr, MD [Primary Care Provider] - (1) Intractable nausea and vomiting Qualifiers: Qualified Code(s): R11.2 - Nausea with vomiting, unspecified (5) Type 2 diabetes mellitus Qualifiers: Diabetes mellitus buttermaker insulin use: without buttermaker use Diabetes mellitus complication status: without complication Qualified Code(s): E11.9 - Type 2 diabetes mellitus without complications
[2019-08-03] MEDS: Insulin LISPRO 300 UNITS/3 ML VIAL SQ SCH ×3 (13:25→20:35)
[2019-08-04 01:42] LABS: Hematocrit 31.6 % (35.3-44.9); Mean Corpuscular Hemoglobin 29.7 pg (28.0-33.3); Mean Platelet Volume 11.2 fL (9.4-12.4)
[2019-08-04 01:43] LABS: Hemoglobin 10.1 g/dL (11.5-15.4); Mean Corpuscular Volume 92.9 fL (83.0-100.0); Platelet Count 203 K/mcL (140-400); Red Cell Distribution Width 14.7 % (11.5-14.5); White Blood Count 1.6 K/mcL (4.3-11.1)
[2019-08-04 01:58] LABS: BUN/Creatinine Ratio 14 (6-26); Blood Urea Nitrogen 13 mg/dL (8-23); Calcium 8.9 mg/dL (8.6-10.3); Carbon Dioxide 20 mEq/L (23-29); Chloride 106 mEq/L (98-107); Glucose 82 mg/dL (70-105); Magnesium 1.4 mg/dL (1.6-2.6); Osmolality,Calculated 275 (280-300); Potassium 3.8 mEq/L (3.5-5.1); Sodium 133 mEq/L (136-145); eGFR For African Americans > 60 (> 60); eGFR For Non-African Americans 56 (> 60)
[2019-08-04] MEDS: *HR* Heparin 5,000 UNIT/ML VIAL SQ SCH ×2 (05:55→12:48)
[2019-08-04] MEDS: amLODIPine 5 MG TABLET PO SCH (08:24)
[2019-08-04] MEDS: Magnesium Oxide 400 MG TABLET PO SCH (08:24)
[2019-08-04] MEDS: Aspirin Enteric Coated 81 MG Tablet PO SCH (08:24)
[2019-08-04] MEDS: Insulin LISPRO 300 UNITS/3 ML VIAL SQ SCH ×4 (08:24→20:18)
[2019-08-04] MEDS: Sucralfate 1 GM TABLET PO SCH (08:25)
[2019-08-04] MEDS: FLUoxetine 20 MG CAPSULE PO SCH (08:25)
--- NOTE | 2019-08-04 09:30 | Internal Med Progress Note ---
Hospitalist Progress Note - Encounter Date of Encounter: 08/04/19 Time of Encounter: 09:27 - Subjective Interval History: Ms. Hardy is a 79 year old female with past medical history of type 2 diabetes, hypertension, Parkinson's disease, anxiety and depression presented to the ED with her spouse for weakness. Patient's spouse reported the patient's becky christensen is able to ambulate with using a cane and tolerate oral intake without difficulties. However the past few days has been mostly laying in bed with needing a walker with assistance constant with no alleviating or exacerbating factor. Patient the past 2 days has been also vomiting and nausea at least 10 times running intermittently for an hour that improved the next day and then return today. There has been no change in colostomy output and usually changes it 4 times daily, no coughing, fever, chills, chest pain, shortness or breath, dysuria. Patient has history of recurrent UTI in the past but no and had a right urethra removed in the past. Patient otherwise admits to low oral intake and has only been drinking water with no food and the spouse is very concerned. Reviewed patient's past medical, surgical, social and family history. CODE STATUS is DNR/DNI. Pt seen and examined in the room. reported mild abd pain and occasional diarrhea, but overall symptoms are improving, not at baseline currently. - Exam Vitals: Temp Pulse Resp BP Pulse Ox 98.7 F 71 16 147/70 96 08/04/19 07:41 08/04/19 07:41 08/04/19 07:41 08/04/19 07:41 08/04/19 07:41 Exam: General Appearance: Appearing as age, malnourished in mild acute distress. Head: Atraumatic normocephalic Skin: Normal texture, normal turgor, warm, dry. Eyes: Conjunctivae pale with no erythema, drainage, or ulcers. Anicteric. Neck: No Lymphadenopathy in the anterior/posterior cervical chain. No thyromegaly, masses or ulcers. Trachea midline. Heart: RRR, no murmurs. Capillary refill 3 seconds Lungs: No accessory muscle usage, lungs clear to auscultation bilaterally, no wheezes or crackles. Extremities: No pitting edema, No clubbing, No cyanosis. Abdomen: Non-distended, normoactive bowel sounds. non-tender to palpation, colostomy bag present with no dark red blood or black stools. No epigastric tenderness. Negative McBurney tenderness, negative Rovsing sign, negative Maya sign. no hepatomegally. No guarding. Right abdominal wall atrophy comparing to the left Neuro: AOx3 with no new sensory loss or focal deficits. MSK: Strength 5/5 Upper extremity equal bilaterally. Strength 5/5 Lower extremity equal bilaterally - Assessment and Plan (1) Intractable nausea and vomiting Current Visit: Yes Status: Acute Assessment and Plan: workup showed mild dehydration, low mag level. negative c.diff. Pt symptoms improving. Continue current treatment. Mag still was low 1.4 this am, replaced. Na and Cl are low, encourage pt to increase salt intake. Continue monitoring. Plan to dc home in am. (2) Weakness Current Visit: Yes Status: Acute Assessment and Plan: Pending PT/OT. (3) Essential hypertension Current Visit: No Status: Acute Assessment and Plan: BP controlled, continue current treatment. 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 (5) Type 2 diabetes mellitus Current Visit: No Status: Chronic Assessment and Plan: BG well controlled, continue current treatment. (6) Chronic neutropenia Current Visit: No Status: Chronic Assessment and Plan: stable, outpt f/u with hematology. (7) DVT prophylaxis Current Visit: Yes Status: Acute Assessment and Plan: heparin sq. - Time Spent with Patient Total time spent is greater than 50% in coordination of care (as documented) at patient's floor/unit and/or counseling patient: Greater than 35 minutes Plan of Care Discussed with: patient Internal Medicine: Result - Labs CBC & Chem 7: 08/04/19 00:38 08/04/19 00:38 Labs: Short CBC 08/04/19 Range/Units 00:38 WBC 1.6 L (4.3-11.1) K/mcL Hgb 10.1 L (11.5-15.4) g/dL Hct 31.6 L (35.3-44.9) % Plt Count 203 (140-400) K/mcL BMP 08/04/19 00:38 Sodium 133 L Potassium 3.8 Chloride 106 Carbon Dioxide 20 L BUN 13 Creatinine 0.96 Glucose 82 Calcium 8.9 Cardiac Enzymes 08/03/19 Range/Units 09:38 Troponin I < 0.03 (< 0.04) ng/mL - ABG Interpretation ABG results: PT/INR, D-dimer PT 11.6 Seconds (9.4-12.1) 08/02/19 22:00 - Impressions Impressions Abdomen/Pelvis CT 08/02/19 17:45 IMPRESSION: 1. No acute abdominal or pelvic abnormality on this unenhanced study. 2. Interval removal right ureteral stent with interval improvement in right hydronephrosis. Otherwise stable exam from 06/08/2019. 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
--- NOTE | 2019-08-04 13:05 | Electrocardiograph Report ---
[address] [address] Test Date: 2019-08-02 Pat Name: Sheree Hardy Department: [id number] Room: 3B63 Gender: Chair Finisher: : 1940 Requested By: Kiran Ferrell Order Number: [id number] Reading MD: Doug Jimenez Measurements Intervals [place] Rate: 71 P: 50 NV: 233 QRS: -43 QRSD: 101 T: 62 QT: 415 QTc: 451 Interpretive Statements Sinus rhythm Prolonged NV interval Left anterior fascicular block Abnormal R-wave progression, early transition Left ventricular hypertrophy Electronically Signed On 08-04-2019 12:05:03 EDT by Doug Jimenez
[2019-08-05] MEDS: *HR* Heparin 5,000 UNIT/ML VIAL SQ SCH ×2 (00:48→06:28)
[2019-08-05 01:47] LABS: BUN/Creatinine Ratio 14 (6-26); Blood Urea Nitrogen 14 mg/dL (8-23); Calcium 9.3 mg/dL (8.6-10.3); Carbon Dioxide 19 mEq/L (23-29); Chloride 110 mEq/L (98-107); Glucose 120 mg/dL (70-105); Magnesium 1.7 mg/dL (1.6-2.6); Osmolality,Calculated 286 (280-300); Potassium 4.3 mEq/L (3.5-5.1); Sodium 137 mEq/L (136-145); eGFR For African Americans > 60 (> 60); eGFR For Non-African Americans 53 (> 60)
[2019-08-05] MEDS: Insulin LISPRO 300 UNITS/3 ML VIAL SQ SCH ×2 (08:33→12:35)
[2019-08-05] MEDS: FLUoxetine 20 MG CAPSULE PO SCH (08:40)
[2019-08-05] MEDS: Sucralfate 1 GM TABLET PO SCH (08:40)
[2019-08-05] MEDS: Aspirin Enteric Coated 81 MG Tablet PO SCH (08:40)
[2019-08-05] MEDS: amLODIPine 5 MG TABLET PO SCH (08:40)
[2019-08-05] MEDS: Magnesium Oxide 400 MG TABLET PO SCH (08:40)
--- NOTE | 2019-08-05 09:29 | Discharge Summary ---
- NOTES TO OUTPATIENT PROVIDER Notes to Outpatient Provider: f/u with PCP within a week. Orders not resulted at time of discharge: Pending orders 08/02/19 22:00 [facility] IgG EMILY rflx IFA Routine Haptoglobin Routine Date of Encounter: 08/05/19 Time of Encounter: 09:26 - Discharge Diagnosis (1) Intractable nausea and vomiting Priority: Primary Status: Acute Qualifiers: Qualified Code(s): R11.2 - Nausea with vomiting, unspecified (2) Weakness Priority: Primary Status: Acute (3) Essential hypertension Priority: Secondary Status: Chronic (4) Colostomy in place Priority: Secondary Status: Chronic (5) Type 2 diabetes mellitus Priority: Secondary Status: Chronic Qualifiers: Diabetes mellitus chcf insulin use: without chcf use Diabetes mellitus complication status: without complication Qualified Code(s): E11.9 - Type 2 diabetes mellitus without complications (6) Chronic neutropenia Priority: Secondary Status: Chronic (7) DVT prophylaxis Priority: Primary Status: Acute Hospital course: Ms. Hardy is a 79 year old female with past medical history of type 2 diabetes, hypertension, Parkinson's disease, anxiety and depression presented to the ED with her spouse for weakness. Patient's spouse reported the patient's baseline is able to ambulate with using a cane and tolerate oral intake without difficulties. However the past few days has been mostly laying in bed with needing a walker with assistance constant with no alleviating or exacerbating factor. Patient the past 2 days has been also vomiting and nausea at least 10 times running intermittently for an hour that improved the next day and then return today. There has been no change in colostomy output and usually changes it 4 times daily, no coughing, fever, chills, chest pain, shortness or breath, dysuria. Patient has history of recurrent UTI in the past but no and had a right urethra removed in the past. Patient otherwise admits to low oral intake and has only been drinking water with no food and the spouse is very concerned. Upon arrival, patient's labs showed dehydration with low sodium, magnesium, and chloride. C. difficile toxin was negative. CT of abdomen/pelvis showed no acute abdominal or pelvic abnormalities. UA has no evidence of infection. Iron studies showed iron deficiency. Pro-calcitonin was slightly elevated, however, there is no identifiable source of infection. Patient has chronic neutropenia and has been follow-up with hematology as outpatient. Patient was started on IV fluid and the supportive care. Her symptoms significantly improved, diarrhea has resolved. Sodium and magnesium level have been normalized. On the discharge today, patient reported she has been returned to her baseline, she denies fever, she has no diarrhea. Her labs were unremarkable. Patient is discharged home today, she will follow-up with PCP as scheduled. Discharge discussed with: patient Time spent discussing smoking cessation with patient: more than 10 minutes - Time Spent with Patient Total time spent providing and/or coordinating discharge services: Time spent: Greater than 30 minutes - Discharge Medications Prescriptions: New Ferrous Sulfate 325 mg PO BIDWM #60 tablet Continued Metformin HCl [Glucophage] 1,000 mg PO BID Potassium Chloride [K-Tab ER] 20 meq PO BID Glimepiride [Amaryl] 4 mg PO QAM FLUoxetine HCl [Fluoxetine HCl] 40 mg PO DAILY Amlodipine Besylate 10 mg PO DAILY Magnesium Oxide [Magnesium] 400 mg PO DAILY Metoprolol Tartrate 50 mg PO BID Sucralfate [Carafate] 1 gm PO QAM Aspirin Enteric Coated [Aspirin EC] 81 mg PO DAILY Docusate [Colace] 100 mg PO DAILY PRN PRN Reason: Constipation Omeprazole [PriLOSEC] 20 mg PO DAILY Home Medications: FLUoxetine HCl [Fluoxetine HCl] 40 mg PO DAILY 10/02/17 [History] Glimepiride [Amaryl] 4 mg PO QAM 10/02/17 [History] Metformin HCl [Glucophage] 1,000 mg PO BID 10/02/17 [History] Potassium Chloride [K-Tab ER] 20 meq PO BID 10/02/17 [History] Amlodipine Besylate 10 mg PO DAILY 03/11/19 [History] Magnesium Oxide [Magnesium] 400 mg PO DAILY 03/11/19 [History] Metoprolol Tartrate 50 mg PO BID 03/11/19 [History] Sucralfate [Carafate] 1 gm PO QAM 03/11/19 [History] Aspirin Enteric Coated [Aspirin EC] 81 mg PO DAILY 06/09/19 [History] Docusate [Colace] 100 mg PO DAILY PRN 06/09/19 [History] Omeprazole [PriLOSEC] 20 mg PO DAILY 06/09/19 [History] Ferrous Sulfate 325 mg PO BIDWM #60 tablet 08/05/19 [Rx] Allergies/Adverse Reactions: Allergy/AdvReac Type Severity Reaction Status Date / Time RODGER Inhibitors AdvReac See Verified 08/03/19 13:46 Comments ampicillin AdvReac See Verified 08/03/19 13:46 Comments lisinopril AdvReac See Verified 08/03/19 13:46 Comments tetracycline [Tetracycline] AdvReac See Verified 08/03/19 13:46 Comments Date of admission: 08/03/19 16:31 Primary care physician: Philippe Scott Jr, MD Consults: 08/03/19 18:42 Consult to Rod Placer [CONS] Routine Reason for SW Consult: receives HH/PT, PT/OT consult for evaluation the need for anything further/placement for therapy Anticipated date of discharge: 08/05/19 - Constitutional Vitals: Temp Pulse Resp BP Pulse Ox 98.5 F 57 19 148/70 96 08/05/19 06:57 08/05/19 06:57 08/05/19 06:57 08/05/19 06:57 08/05/19 06:57 General appearance: Present: A&O X 3 Exam: General Appearance: Appearing as age, malnourished in mild acute distress. Head: Atraumatic normocephalic Skin: Normal texture, normal turgor, warm, dry. Eyes: Conjunctivae pale with no erythema, drainage, or ulcers. Anicteric. Neck: No Lymphadenopathy in the anterior/posterior cervical chain. No thyromegaly, masses or ulcers. Trachea midline. Heart: RRR, no murmurs. Capillary refill 3 seconds Lungs: No accessory muscle usage, lungs clear to auscultation bilaterally, no wheezes or crackles. Extremities: No pitting edema, No clubbing, No cyanosis. Abdomen: Non-distended, normoactive bowel sounds. non-tender to palpation, colostomy bag present with no dark red blood or black stools. No epigastric tenderness. Negative McBurney tenderness, negative Rovsing sign, negative Maya sign. no hepatomegally. No guarding. Right abdominal wall atrophy comparing to the left Neuro: AOx3 with no new sensory loss or focal deficits. MSK: Strength 5/5 Upper extremity equal bilaterally. Strength 5/5 Lower extremity equal bilaterally - Patient Status Disposition: Home, Self-Care Condition: Fair Functional capacity at discharge: independent ambulation Overall status at discharge: patient is progressing back to baseline - Discharge Instructions Follow Up With: Philippe Scott Jr, MD [Primary Care Provider] - - Diet and Activity Activity: increase activity as tolerated Diet: diabetic diet, low salt diet
[2019-08-05 12:07] VITALS: BP 132/73
--- NOTE | 2019-08-05 13:52 | Physician Discharge Referral ---
Home Health/Hosp Referral Info Transfer to: Home Health Provider in Charge Post Discharge: PCP - Diagnosis (1) Intractable nausea and vomiting Priority: Primary Status: Acute (2) Weakness Priority: Primary Status: Acute (3) Essential hypertension Priority: Secondary Status: Chronic (4) Colostomy in place Priority: Secondary Status: Chronic (5) Type 2 diabetes mellitus Priority: Secondary Status: Chronic (6) Chronic neutropenia Priority: Secondary Status: Chronic (7) DVT prophylaxis Priority: Primary Status: Acute - Respiratory Orders Smoking Cessation: Smoking cessation has been advised. For more information, call the [place] Tobacco Quit Line at 1-107-XGFS-NOW. - Services Needed Following services are medically necessary services: Nursing, Home Health Aide, Physical Therapy, Occupational Therapy - Transfer Medications Prescriptions: Ferrous Sulfate 325 mg PO BIDWM #60 tablet Transmission Status: Received by [facility] Home Medications: FLUoxetine HCl [Fluoxetine HCl] 40 mg PO DAILY 10/02/17 [History] Glimepiride [Amaryl] 4 mg PO QAM 10/02/17 [History] Metformin HCl [Glucophage] 1,000 mg PO BID 10/02/17 [History] Potassium Chloride [K-Tab ER] 20 meq PO BID 10/02/17 [History] Amlodipine Besylate 10 mg PO DAILY 03/11/19 [History] Magnesium Oxide [Magnesium] 400 mg PO DAILY 03/11/19 [History] Metoprolol Tartrate 50 mg PO BID 03/11/19 [History] Sucralfate [Carafate] 1 gm PO QAM 03/11/19 [History] Aspirin Enteric Coated [Aspirin EC] 81 mg PO DAILY 06/09/19 [History] Docusate [Colace] 100 mg PO DAILY PRN 06/09/19 [History] Omeprazole [PriLOSEC] 20 mg PO DAILY 06/09/19 [History] Ferrous Sulfate 325 mg PO BIDWM #60 tablet 08/05/19 [Rx] Allergies/Adverse Reactions: Allergy/AdvReac Type Severity Reaction Status Date / Time RODGER Inhibitors AdvReac See Verified 08/03/19 13:46 Comments ampicillin AdvReac See Verified 08/03/19 13:46 Comments lisinopril AdvReac See Verified 08/03/19 13:46 Comments tetracycline [Tetracycline] AdvReac See Verified 08/03/19 13:46 Comments Certification: Further, I certify that my clinical findings support that this patient is homebound (i.e. absences from home require considerable and taxing effort and a re for medical reasons or mu-ism services or infrequently or short duration when for other reasons) because: Homebound Reason: Patient requires assistance of a person or device to safely leave home Attestation: My signature below is to certify that this patient is under my care and that I, or nurse practitioner, or a physician's assistant sales director working with me, has a [id number] encounter with this patient.
[2019-08-05 14:52] LABS: ANA IgG by ELISA NONE DETECTED (None Detected)
== END 2019-08-05 14:47 | disposition home or self-care (01) | DRG 641 ==
LOC: EMEROOARM 15:52 → 3BNU 15:52
PROVIDERS: ADMIT Internal Medicine; ATTEND Internal Medicine

== ENCOUNTER 2019-12-08 17:27 | Inpatient (IN) ==
[2019-12-08] MEDS ORDERED: Isovue-370 500 ML BOTTLE IVP ONE (19:09)
[2019-12-08 19:29] LABS: Basophils % 1.1 %; Eosinophils # 0.2 K/mcL (0.0-0.6); Eosinophils % 10.2 %; Hematocrit 37.4 % (35.3-44.9); Hemoglobin 12.1 g/dL (11.5-15.4); Lymphocytes # 0.8 K/mcL (0.6-4.6); Lymphocytes % 45.5 %; Mean Corpuscular HGB Conc 32.4 g/dL (31.6-35.5); Mean Corpuscular Hemoglobin 31.6 pg (28.0-33.3); Mean Corpuscular Volume 97.7 fL (83.0-100.0); Mean Platelet Volume 10.9 fL (9.4-12.4); Monocytes % 30.7 %; Neutrophils # 0.2 K/mcL (1.6-8.9); Platelet Count 223 K/mcL (140-400); Red Blood Count 3.83 M/mcL (3.82-4.97); Red Cell Distribution Width 13.1 % (11.5-14.5); Segmented Neutrophils % 12.5 %; White Blood Count 1.8 K/mcL (4.3-11.1)
[2019-12-08 19:32] LABS: Monocytes # 0.6 K/mcL (0.0-1.3)
[2019-12-08 19:44] LABS: Calcium 9.4 mg/dL (8.6-10.3); Potassium 4.6 mEq/L (3.5-5.1)
[2019-12-08] MEDS ORDERED: Lidocaine -MPF 2% 2 ML VIAL ONE (19:52)
[2019-12-08] MEDS ORDERED: *HR* Propofol 200 MG/20 ML VIAL IVP ONE (19:52)
[2019-12-08] MEDS ORDERED: *HR* FentaNYL (PF) 100 MCG/2 ML VIAL ONE (19:58)
[2019-12-08] MEDS ORDERED: Ondansetron 4 MG/2 ML VIAL IVP ONE (20:12)
[2019-12-08] MEDS ORDERED: *HR* OxyCODONE Immed Rel 5 MG TABLET PO PRN (20:12)
[2019-12-08] MEDS ORDERED: *HR* HYDROmorphone (PF) 1 MG/ML SYRINGE IVP PRN (20:12)
[2019-12-08] MEDS ORDERED: *HR* Promethazine 25 MG/ML VIAL IVP PRN (20:12)
[2019-12-08] MEDS ORDERED: Dexamethasone 4 MG/ML VIAL ONE (20:47)
[2019-12-08] MEDS ORDERED: Ondansetron 4 MG/2 ML VIAL ONE (20:47)
[2019-12-08] MEDS ORDERED: Acetaminophen 325 MG TABLET PO PRN (21:07)
[2019-12-08] MEDS ORDERED: Naloxone 0.4 MG/ML INJ IVP PRN ×2 (21:07→22:12)
[2019-12-08] MEDS ORDERED: Ondansetron 4 MG/2 ML VIAL IVP PRN ×2 (21:07→22:12)
[2019-12-09] MEDS ORDERED: Naloxone 0.4 MG/ML INJ IVP PRN (00:32)
[2019-12-09] MEDS ORDERED: Dextrose Gel 15 GM/37.5 ML TUBE PO PRN ×2 (01:13)
[2019-12-09] MEDS ORDERED: *HR* Dextrose 50 % in Water (Syg) 50 ML SYRINGE IVP PRN (01:13)
[2019-12-09] MEDS ORDERED: D5% in Water 1,000 ML IVC PRN (01:13)
[2019-12-09] MEDS: WATER IVPB SCH ×2 (02:56→10:05)
[2019-12-09] MEDS: D5 IVPB SCH ×2 (02:56→10:05)
[2019-12-09] MEDS: TRIMETH IVPB SCH ×2 (02:56→10:05)
[2019-12-09] MEDS: SULFAMETHOXAZOLE IVPB SCH ×2 (02:56→10:05)
[2019-12-09 08:41] LABS: Mean Platelet Volume 10.8 fL (9.4-12.4)
[2019-12-09 08:43] LABS: Hematocrit 34.6 % (35.3-44.9); Hemoglobin 11.4 g/dL (11.5-15.4); Lymphocytes # 0.4 K/mcL (0.6-4.6); Mean Corpuscular HGB Conc 32.9 g/dL (31.6-35.5); Mean Corpuscular Hemoglobin 31.4 pg (28.0-33.3); Mean Corpuscular Volume 95.3 fL (83.0-100.0); Platelet Count 206 K/mcL (140-400); Red Blood Count 3.63 M/mcL (3.82-4.97); Red Cell Distribution Width 12.6 % (11.5-14.5); White Blood Count 1.3 K/mcL (4.3-11.1)
[2019-12-09] MEDS: Insulin DETEMIR 100 UNIT/ML X5UNITS SQ SCH (08:54)
[2019-12-09 08:58] LABS: BUN/Creatinine Ratio 16 (6-26); Blood Urea Nitrogen 15 mg/dL (8-23); Calcium 8.9 mg/dL (8.6-10.3); Carbon Dioxide 26 mEq/L (23-29); Chloride 99 mEq/L (98-107); Glucose 191 mg/dL (70-105); Osmolality,Calculated 286 (280-300); Sodium 135 mEq/L (136-145); eGFR For African Americans > 60 (> 60); eGFR For Non-African Americans 59 (> 60)
[2019-12-09] MEDS: Insulin LISPRO 300 UNITS/3 ML VIAL SQ SCH ×3 (08:59→16:16)
[2019-12-09 09:15] LABS: Basophils # 0.1 K/mcL (0.0-0.2); Monocytes # 0.3 K/mcL (0.0-1.3); Neutrophils # 0.5 K/mcL (1.6-8.9)
[2019-12-09 09:16] LABS: Platelet Estimate Normal (Normal); Reactive Lymphocytes Present (Not Present)
[2019-12-09 09:52] LABS: Estimated Average Glucose 146 mg/dl
[2019-12-09] MEDS: Acetaminophen 325 MG TABLET PO PRN (16:16)
[2019-12-09] MEDS: Sulfamethoxazole/Trimeth DS 1 EACH TABLET PO SCH (21:26)
[2019-12-09] MEDS: Sucralfate 1 GM TABLET PO SCH (21:26)
[2019-12-10 02:04] LABS: Basophils % 0.9 %; Eosinophils # 0.4 K/mcL (0.0-0.6); Eosinophils % 18.3 %; Hematocrit 30.5 % (35.3-44.9); Hemoglobin 10.4 g/dL (11.5-15.4); Immature Granulocytes % 0.9 % (0-4); Lymphocytes % 44.6 %; Mean Corpuscular HGB Conc 34.1 g/dL (31.6-35.5); Mean Corpuscular Hemoglobin 31.5 pg (28.0-33.3); Mean Corpuscular Volume 92.4 fL (83.0-100.0); Monocytes # 0.6 K/mcL (0.0-1.3); Monocytes % 26.3 %; Neutrophils # 0.2 K/mcL (1.6-8.9); Platelet Count 201 K/mcL (140-400); Red Cell Distribution Width 12.8 % (11.5-14.5)
[2019-12-10 02:11] LABS: Lymphocytes # 0.9 K/mcL (0.6-4.6); White Blood Count 2.1 K/mcL (4.3-11.1)
[2019-12-10 02:17] LABS: Calcium 8.9 mg/dL (8.6-10.3); Potassium 4.5 mEq/L (3.5-5.1)
[2019-12-10 02:56] LABS: Platelet Estimate Normal (Normal)
[2019-12-10 02:57] LABS: Reactive Lymphocytes Present (Not Present)
[2019-12-10] MEDS: Sucralfate 1 GM TABLET PO SCH ×4 (08:29→20:48)
[2019-12-10] MEDS: FLUoxetine 20 MG CAPSULE PO SCH (08:30)
[2019-12-10] MEDS: Magnesium Oxide 400 MG TABLET PO SCH (08:30)
[2019-12-10] MEDS: Aspirin Enteric Coated 81 MG Tablet PO SCH (08:30)
[2019-12-10] MEDS: amLODIPine 5 MG TABLET PO SCH (08:30)
[2019-12-10] MEDS: Sulfamethoxazole/Trimeth DS 1 EACH TABLET PO SCH ×2 (08:30→20:48)
[2019-12-10] MEDS: Insulin LISPRO 300 UNITS/3 ML VIAL SQ SCH ×3 (08:33→17:18)
[2019-12-10] MEDS: Insulin DETEMIR 100 UNIT/ML X5UNITS SQ SCH (08:33)
[2019-12-11 06:14] LABS: Hematocrit 32.3 % (35.3-44.9); Hemoglobin 10.6 g/dL (11.5-15.4); Mean Corpuscular HGB Conc 32.8 g/dL (31.6-35.5); Mean Corpuscular Hemoglobin 31.3 pg (28.0-33.3); Mean Corpuscular Volume 95.3 fL (83.0-100.0); Mean Platelet Volume 10.4 fL (9.4-12.4); Platelet Count 221 K/mcL (140-400); Red Blood Count 3.39 M/mcL (3.82-4.97); Red Cell Distribution Width 12.9 % (11.5-14.5); White Blood Count 1.9 K/mcL (4.3-11.1)
[2019-12-11 06:21] LABS: BUN/Creatinine Ratio 20 (6-26); Blood Urea Nitrogen 21 mg/dL (8-23); Calcium 9.3 mg/dL (8.6-10.3); Carbon Dioxide 25 mEq/L (23-29); Chloride 103 mEq/L (98-107); Glucose 123 mg/dL (70-105); Osmolality,Calculated 288 (280-300); Potassium 4.5 mEq/L (3.5-5.1); Sodium 137 mEq/L (136-145); eGFR For African Americans > 60 (> 60); eGFR For Non-African Americans 52 (> 60)
[2019-12-11 06:46] LABS: Eosinophils # 0.2 K/mcL (0.0-0.6); Lymphocytes # 1.3 K/mcL (0.6-4.6); Monocytes # 0.1 K/mcL (0.0-1.3); Neutrophils # 0.3 K/mcL (1.6-8.9); Platelet Estimate Normal (Normal); Toxic Granulation Present (Not Present)
[2019-12-11] MEDS: Acetaminophen 325 MG TABLET PO PRN (08:15)
[2019-12-11] MEDS: Aspirin Enteric Coated 81 MG Tablet PO SCH (09:30)
[2019-12-11] MEDS: amLODIPine 5 MG TABLET PO SCH (09:30)
[2019-12-11] MEDS: Magnesium Oxide 400 MG TABLET PO SCH (09:31)
[2019-12-11] MEDS: Sulfamethoxazole/Trimeth DS 1 EACH TABLET PO SCH (09:31)
[2019-12-11] MEDS: FLUoxetine 20 MG CAPSULE PO SCH (09:31)
[2019-12-11] MEDS: Sucralfate 1 GM TABLET PO SCH ×4 (09:31→21:03)
[2019-12-11] MEDS: Insulin DETEMIR 100 UNIT/ML X5UNITS SQ SCH (09:32)
[2019-12-11] MEDS: Insulin LISPRO 300 UNITS/3 ML VIAL SQ SCH ×3 (09:42→17:50)
[2019-12-11] MEDS: cephALEXin 500 MG CAPSULE PO SCH ×3 (12:27→21:03)
[2019-12-12 01:44] LABS: Eosinophils # 0.4 K/mcL (0.0-0.6); Hematocrit 31.8 % (35.3-44.9); Hemoglobin 10.1 g/dL (11.5-15.4); Mean Corpuscular HGB Conc 31.8 g/dL (31.6-35.5); Mean Corpuscular Hemoglobin 31.3 pg (28.0-33.3); Mean Corpuscular Volume 98.5 fL (83.0-100.0); Mean Platelet Volume 10.9 fL (9.4-12.4); Monocytes # 0.5 K/mcL (0.0-1.3); Platelet Count 242 K/mcL (140-400); Red Blood Count 3.23 M/mcL (3.82-4.97); Red Cell Distribution Width 12.7 % (11.5-14.5); White Blood Count 2.2 K/mcL (4.3-11.1)
[2019-12-12 01:54] LABS: Calcium 9.6 mg/dL (8.6-10.3); Potassium 4.8 mEq/L (3.5-5.1)
[2019-12-12 03:00] LABS: Basophils # 0.1 K/mcL (0.0-0.2); Lymphocytes # 1.1 K/mcL (0.6-4.6); Neutrophils # 0.1 K/mcL (1.6-8.9)
[2019-12-12 03:01] LABS: Platelet Estimate Normal (Normal)
[2019-12-12] MEDS ORDERED: 0.9 % Sodium Chloride 500 ML IVC ONE (07:35)
[2019-12-12] MEDS: Aspirin Enteric Coated 81 MG Tablet PO SCH (08:50)
[2019-12-12] MEDS: FLUoxetine 20 MG CAPSULE PO SCH (08:50)
[2019-12-12] MEDS: Magnesium Oxide 400 MG TABLET PO SCH (08:50)
[2019-12-12] MEDS: cephALEXin 500 MG CAPSULE PO SCH ×3 (08:50→16:39)
[2019-12-12] MEDS: amLODIPine 5 MG TABLET PO SCH (08:50)
[2019-12-12] MEDS: Sucralfate 1 GM TABLET PO SCH ×3 (08:50→16:39)
[2019-12-12] MEDS: Insulin DETEMIR 100 UNIT/ML X5UNITS SQ SCH (08:54)
[2019-12-12] MEDS: Insulin LISPRO 300 UNITS/3 ML VIAL SQ SCH ×3 (08:54→16:39)
[2019-12-12 14:04] VITALS: BP 134/63
== END 2019-12-12 18:50 | DRG 580 ==
LOC: SUATTDRO → 3NENU 17:27 → EMEROOARM 17:27 → 3NENU 20:00 → SUATTDRO 21:30
PROVIDERS: ADMIT Pharmacist; ATTEND Family Medicine

== ENCOUNTER 2020-07-25 07:00 | Observation (INO) ==
[2020-07-25] MEDS ORDERED: Ipratropium/Albuterol Neb 3 ML IH ONE (07:35)
[2020-07-25 08:04] LABS: Basophils % 1.4 %; Eosinophils # 0.5 K/mcL (0.0-0.6); Hematocrit 40.2 % (35.3-44.9); Hemoglobin 12.3 g/dL (11.5-15.4); Lymphocytes # 0.6 K/mcL (0.6-4.6); Lymphocytes % 27.4 %; Mean Corpuscular HGB Conc 30.6 g/dL (31.6-35.5); Mean Corpuscular Hemoglobin 31.5 pg (28.0-33.3); Mean Corpuscular Volume 103.1 fL (83.0-100.0); Mean Platelet Volume 10.6 fL (9.4-12.4); Monocytes # 0.4 K/mcL (0.0-1.3); Monocytes % 17.8 %; Neutrophils # 0.7 K/mcL (1.6-8.9); Platelet Count 204 K/mcL (140-400); Red Cell Distribution Width 13.3 % (11.5-14.5); Segmented Neutrophils % 32.4 %; White Blood Count 2.2 K/mcL (4.3-11.1)
[2020-07-25 08:06] LABS: INR 0.9; Prothrombin Time 10.5 Seconds (9.4-12.1)
[2020-07-25 08:09] LABS: Activated Partial Thrombo Time 31.1 Seconds (26.0-36.0)
[2020-07-25 08:23] LABS: Alanine Aminotransferase 11 Units/L (7-52); Albumin 3.7 g/dL (3.5-5.7); Albumin/Globulin Ratio 1.1 (1.1-2.2); Alkaline Phosphatase 72 Units/L (34-104); Aspartate Amino Transferase 17 Units/L (13-39); BUN/Creatinine Ratio 22 (6-26); Bilirubin,Direct 0.1 mg/dL (0.0-0.2); Bilirubin,Indirect 0.2 mg/dL (0.0-1.0); Bilirubin,Total 0.3 mg/dL (0.3-1.0); Blood Urea Nitrogen 24 mg/dL (8-23); Calcium 9.9 mg/dL (8.6-10.3); Carbon Dioxide 29 mEq/L (23-29); Chloride 106 mEq/L (98-107); Globulin 3.4 g/dL (2.4-3.5); Glucose 149 mg/dL (70-105); Magnesium 1.3 mg/dL (1.6-2.6); Osmolality,Calculated 301 (280-300); Potassium 3.8 mEq/L (3.5-5.1); Sodium 142 mEq/L (136-145); Total Protein 7.1 g/dL (6.4-8.9); Troponin I < 0.03 ng/mL (< 0.04); eGFR For African Americans 60 (> 60); eGFR For Non-African Americans 49 (> 60)
[2020-07-25 08:24] LABS: Platelet Estimate Normal (Normal)
[2020-07-25 09:08] LABS: Adenovirus Not Detected (Not Detect); Bordetella Pertussis Not Detected (Not Detect); Chlamydophila pneumoniae Not Detected (Not Detect); Coronavirus 229E Not Detected (Not Detect); Coronavirus HKU1 Not Detected (Not Detect); Coronavirus NL63 Not Detected (Not Detect); Coronavirus OC43 Not Detected (Not Detect); Human Metapneumovirus Not Detected (Not Detect); Human Rhinovirus/Enterovirus DETECTED (Not Detect); Influenza A Subtype 2009 H1 Not Detected (Not Detect); Influenza B Not Detected (Not Detect); Mycoplasma pneumoniae Not Detected (Not Detect); Parainfluenza Virus 1 Not Detected (Not Detect); Parainfluenza Virus 2 Not Detected (Not Detect); Parainfluenza Virus 3 Not Detected (Not Detect); Parainfluenza Virus 4 Not Detected (Not Detect); Respiratory Syncytial Virus Not Detected (Not Detect); SARS-CoV-2 Not Detected (Not Detect)
[2020-07-25] MEDS ORDERED: Azithromycin 500 MG in 0.9 % Sodium Chloride 250 ML IVPB ONE (09:38)
[2020-07-25] MEDS ORDERED: Magnesium Sulfate 1 GM/102 ML PIGGYBACK IVPB ONE (09:45)
[2020-07-25] MEDS ORDERED: Aspirin 81 MG TAB.CHEW PO STA (09:49)
[2020-07-25] MEDS: Ipratropium/Albuterol Neb 3 ML IH SCH ×4 (15:29→23:53)
[2020-07-26] MEDS: Ipratropium/Albuterol Neb 3 ML IH SCH ×6 (03:28→23:36)
[2020-07-26] MEDS: *HR* Enoxaparin 40 MG/0.4 ML SYRINGE SQ SCH (05:55)
[2020-07-26] MEDS: Magnesium Oxide 400 MG TABLET PO SCH (09:05)
[2020-07-26] MEDS: Aspirin Enteric Coated 81 MG Tablet PO SCH (09:06)
[2020-07-26] MEDS: amLODIPine 5 MG TABLET PO SCH (09:07)
[2020-07-26] MEDS: FLUoxetine 20 MG CAPSULE PO SCH (09:07)
[2020-07-26] MEDS: Sucralfate 1 GM TABLET PO SCH (10:33)
[2020-07-26] MEDS ORDERED: D5% in Water 1,000 ML IVC PRN (11:43)
[2020-07-26] MEDS ORDERED: *HR* Dextrose 50 % in Water (Vial) 50 ML VIAL IVP PRN (11:43)
[2020-07-26] MEDS ORDERED: Dextrose Gel 15 GM/37.5 ML TUBE PO PRN ×2 (11:43)
[2020-07-26] MEDS ORDERED: Magnesium Sulfate 1 GM/102 ML PIGGYBACK IVPB ONE (12:02)
[2020-07-26] MEDS: Insulin LISPRO 300 UNITS/3 ML VIAL SQ SCH (18:12)
[2020-07-26] MEDS: Nystatin POWDER 30 GM BOTTLE TP SCH (20:05)
[2020-07-27 02:45] LABS: Bilirubin,Urine Negative (Negative); Blood,Urine Moderate (Negative); Clarity,Urine Clear (Clear); Color,Urine Yellow (Yellow); Glucose,Urine (UA) Normal (Normal); Ketones,Urine Negative (Negative); Leukocyte Esterase,Urine Negative (Negative); Nitrite,Urine Negative (Negative); Protein,Urine 100 mg/dL (Neg-Trace); Specific Gravity,Urine 1.025 (1.010-1.025); Urobilinogen,Urine Normal (Normal)
[2020-07-27 02:49] LABS: Bacteria,Urine Few per hpf (None-Few); Mucus,Urine Few per lpf (None-Few); RBC,Urine 0-3 per hpf (0-3); Squamous Epithelial Cell,Urine Few per hpf (None-Few); WBC,Urine 0-3 per hpf (0-3)
[2020-07-27] MEDS: Ipratropium/Albuterol Neb 3 ML IH SCH ×3 (04:04→11:11)
[2020-07-27] MEDS: Sucralfate 1 GM TABLET PO SCH (05:25)
[2020-07-27] MEDS: *HR* Enoxaparin 40 MG/0.4 ML SYRINGE SQ SCH (05:25)
[2020-07-27 06:22] LABS: Red Cell Distribution Width 13.2 % (11.5-14.5)
[2020-07-27 06:24] LABS: Hematocrit 32.8 % (35.3-44.9); Hemoglobin 10.5 g/dL (11.5-15.4); Mean Corpuscular Hemoglobin 32.3 pg (28.0-33.3); Mean Corpuscular Volume 100.9 fL (83.0-100.0); Platelet Count 144 K/mcL (140-400); Red Blood Count 3.25 M/mcL (3.82-4.97); White Blood Count 1.5 K/mcL (4.3-11.1)
[2020-07-27 06:40] LABS: BUN/Creatinine Ratio 15 (6-26); Blood Urea Nitrogen 13 mg/dL (8-23); Calcium 9.3 mg/dL (8.6-10.3); Carbon Dioxide 25 mEq/L (23-29); Chloride 105 mEq/L (98-107); Glucose 143 mg/dL (70-105); Osmolality,Calculated 285 (280-300); Potassium 4.2 mEq/L (3.5-5.1); Sodium 136 mEq/L (136-145); eGFR For African Americans > 60 (> 60); eGFR For Non-African Americans > 60 (> 60)
[2020-07-27] MEDS: Insulin LISPRO 300 UNITS/3 ML VIAL SQ SCH ×2 (09:07→12:34)
[2020-07-27] MEDS: amLODIPine 5 MG TABLET PO SCH (09:08)
[2020-07-27] MEDS: Aspirin Enteric Coated 81 MG Tablet PO SCH (09:08)
[2020-07-27] MEDS: FLUoxetine 20 MG CAPSULE PO SCH (09:08)
[2020-07-27] MEDS: Nystatin POWDER 30 GM BOTTLE TP SCH (09:08)
[2020-07-27] MEDS: Magnesium Oxide 400 MG TABLET PO SCH (09:08)
[2020-07-27 10:49] VITALS: BP 152/75
== END 2020-07-27 13:50 | disposition home health service (06) ==
LOC: EMEROOARM 07:00 → 3ANU 07:00 → SUATTDRO 10:56 → 3ANU 12:10
PROVIDERS: ADMIT Student in an Organized Health Care Education/Training Program; ATTEND Internal Medicine

== ENCOUNTER 2020-09-04 10:40 | Observation (INO) ==
[2020-09-04] MEDS ORDERED: *HR* HYDROcodone/Acet 5/325 mg TABLET PO ONE (12:24)
[2020-09-04 12:57] LABS: Hemoglobin 12.5 g/dL (11.5-15.4); Platelet Count 177 K/mcL (140-400)
[2020-09-04 12:59] LABS: Hematocrit 38.5 % (35.3-44.9); Lymphocytes # 0.7 K/mcL (0.6-4.6); Mean Corpuscular HGB Conc 32.5 g/dL (31.6-35.5); Mean Corpuscular Hemoglobin 31.7 pg (28.0-33.3); Mean Corpuscular Volume 97.7 fL (83.0-100.0); Mean Platelet Volume 10.7 fL (9.4-12.4); Monocytes # 0.4 K/mcL (0.0-1.3); Neutrophils # 0.1 K/mcL (1.6-8.9); Red Blood Count 3.94 M/mcL (3.82-4.97); White Blood Count 1.5 K/mcL (4.3-11.1)
[2020-09-04 13:23] LABS: Eosinophils # 0.2 K/mcL (0.0-0.6)
[2020-09-04 13:24] LABS: Platelet Estimate Normal (Normal); Toxic Granulation Present (Not Present)
[2020-09-04 13:26] LABS: BUN/Creatinine Ratio 25 (6-26); Blood Urea Nitrogen 23 mg/dL (8-23); C-Reactive Protein 51 mg/L (Less than 10); Calcium 9.7 mg/dL (8.6-10.3); Carbon Dioxide 24 mEq/L (23-29); Chloride 103 mEq/L (98-107); Glucose 135 mg/dL (70-105); Osmolality,Calculated 286 (280-300); Sodium 135 mEq/L (136-145); Uric Acid 5.8 mg/dL (2.3-7.6); eGFR For African Americans > 60 (> 60); eGFR For Non-African Americans 58 (> 60)
[2020-09-04] MEDS ORDERED: Naloxone 0.4 MG/ML INJ IVP PRN (17:59)
[2020-09-04] MEDS ORDERED: D5% in Water 1,000 ML IVC PRN (18:12)
[2020-09-04] MEDS ORDERED: Dextrose Gel 15 GM/37.5 ML TUBE PO PRN ×2 (18:12)
[2020-09-04] MEDS ORDERED: *HR* Dextrose 50 % in Water (Vial) 50 ML VIAL IVP PRN (18:12)
[2020-09-04] MEDS: Sucralfate 1 GM TABLET PO SCH (22:44)
[2020-09-04] MEDS: Insulin LISPRO 300 UNITS/3 ML VIAL SQ SCH (22:45)
[2020-09-05 03:48] LABS: Basophils % 1.1 %; Eosinophils # 0.3 K/mcL (0.0-0.6); Eosinophils % 13.8 %; Hematocrit 35.3 % (35.3-44.9); Hemoglobin 11.2 g/dL (11.5-15.4); Lymphocytes # 0.9 K/mcL (0.6-4.6); Lymphocytes % 49.2 %; Mean Corpuscular HGB Conc 31.7 g/dL (31.6-35.5); Mean Corpuscular Hemoglobin 31.1 pg (28.0-33.3); Mean Corpuscular Volume 98.1 fL (83.0-100.0); Mean Platelet Volume 10.7 fL (9.4-12.4); Monocytes # 0.5 K/mcL (0.0-1.3); Neutrophils # 0.2 K/mcL (1.6-8.9); Platelet Count 184 K/mcL (140-400); Red Cell Distribution Width 13.2 % (11.5-14.5); Segmented Neutrophils % 9.9 %; White Blood Count 1.8 K/mcL (4.3-11.1)
[2020-09-05 04:06] LABS: BUN/Creatinine Ratio 19 (6-26); Blood Urea Nitrogen 18 mg/dL (8-23); Calcium 9.2 mg/dL (8.6-10.3); Carbon Dioxide 27 mEq/L (23-29); Chloride 102 mEq/L (98-107); Glucose 114 mg/dL (70-105); Magnesium 1.1 mg/dL (1.6-2.6); Osmolality,Calculated 287 (280-300); Phosphorous 3.6 mg/dL (2.7-4.5); Potassium 3.7 mEq/L (3.5-5.1); Sodium 137 mEq/L (136-145); eGFR For African Americans > 60 (> 60); eGFR For Non-African Americans 56 (> 60)
[2020-09-05 04:08] LABS: Platelet Estimate Normal (Normal)
[2020-09-05] MEDS: *HR* Heparin 5,000 UNIT/ML VIAL SQ SCH ×2 (06:26→17:55)
[2020-09-05] MEDS ORDERED: Ondansetron 4 MG/2 ML VIAL IVP PRN (08:53)
[2020-09-05] MEDS ORDERED: methylPREDNISolone 125 MG/2 ML VIAL IVP ONE (09:00)
[2020-09-05] MEDS: amLODIPine 5 MG TABLET PO SCH (09:55)
[2020-09-05] MEDS: Aspirin Enteric Coated 81 MG Tablet PO SCH (09:56)
[2020-09-05] MEDS: FLUoxetine 20 MG CAPSULE PO SCH (09:56)
[2020-09-05] MEDS: Sucralfate 1 GM TABLET PO SCH ×4 (09:57→22:01)
[2020-09-05] MEDS: Magnesium Oxide 400 MG TABLET PO SCH (09:57)
[2020-09-05] MEDS: Insulin LISPRO 300 UNITS/3 ML VIAL SQ SCH ×4 (09:58→22:02)
[2020-09-06 05:00] LABS: Calcium 9.5 mg/dL (8.6-10.3); Magnesium 1.9 mg/dL (1.6-2.6); Potassium 4.6 mEq/L (3.5-5.1)
[2020-09-06 05:39] LABS: Basophils % 0.7 %
[2020-09-06 05:40] LABS: Hematocrit 36.5 % (35.3-44.9); Hemoglobin 11.7 g/dL (11.5-15.4); Lymphocytes # 0.6 K/mcL (0.6-4.6); Lymphocytes % 39.4 %; Mean Corpuscular HGB Conc 32.1 g/dL (31.6-35.5); Mean Corpuscular Hemoglobin 31.7 pg (28.0-33.3); Mean Corpuscular Volume 98.9 fL (83.0-100.0); Mean Platelet Volume 10.6 fL (9.4-12.4); Monocytes # 0.6 K/mcL (0.0-1.3); Monocytes % 40.1 %; Neutrophils # 0.3 K/mcL (1.6-8.9); Platelet Count 214 K/mcL (140-400); Red Blood Count 3.69 M/mcL (3.82-4.97); Segmented Neutrophils % 19.8 %; White Blood Count 1.4 K/mcL (4.3-11.1)
[2020-09-06 06:10] LABS: Anisocytosis 1+ (Not Present)
[2020-09-06 06:11] LABS: Platelet Estimate Normal (Normal)
[2020-09-06] MEDS: *HR* Heparin 5,000 UNIT/ML VIAL SQ SCH (06:15)
[2020-09-06] MEDS: FLUoxetine 20 MG CAPSULE PO SCH (07:37)
[2020-09-06] MEDS: Magnesium Oxide 400 MG TABLET PO SCH (07:37)
[2020-09-06] MEDS: amLODIPine 5 MG TABLET PO SCH (07:37)
[2020-09-06] MEDS: Aspirin Enteric Coated 81 MG Tablet PO SCH (07:37)
[2020-09-06] MEDS: Sucralfate 1 GM TABLET PO SCH ×2 (07:37→11:18)
[2020-09-06] MEDS: Insulin LISPRO 300 UNITS/3 ML VIAL SQ SCH ×2 (07:38→11:18)
[2020-09-06 11:12] VITALS: BP 123/75
[2020-09-06] MEDS ORDERED: 0.9 % Sodium Chloride 1,000 ML IVC SCH (11:45)
== END 2020-09-06 15:34 | disposition home or self-care (01) | DRG 554 ==
LOC: 3BNU 10:40 → EMEROOARM 10:40 → OBSVTOIN 19:56 → INTOOBSV 19:56 → SUATTDRO 19:56 → 3BNU 20:15
PROVIDERS: ADMIT Internal Medicine; ATTEND Internal Medicine

== ENCOUNTER 2020-11-03 14:23 | Observation (INO) ==
[2020-11-03 15:30] LABS: Hematocrit 36.6 % (35.3-44.9); Mean Corpuscular HGB Conc 32.8 g/dL (31.6-35.5); Mean Corpuscular Hemoglobin 31.4 pg (28.0-33.3); Mean Corpuscular Volume 95.8 fL (83.0-100.0); Mean Platelet Volume 11.1 fL (9.4-12.4); Platelet Count 213 K/mcL (140-400); Red Blood Count 3.82 M/mcL (3.82-4.97); Red Cell Distribution Width 13.3 % (11.5-14.5); Segmented Neutrophils % 9.6 %; White Blood Count 2.1 K/mcL (4.3-11.1)
[2020-11-03 15:31] LABS: Eosinophils # 0.7 K/mcL (0.0-0.6); Eosinophils % 35.4 %; Lymphocytes # 0.6 K/mcL (0.6-4.6); Lymphocytes % 28.2 %; Monocytes # 0.5 K/mcL (0.0-1.3); Monocytes % 25.8 %; Neutrophils # 0.2 K/mcL (1.6-8.9)
[2020-11-03 15:41] LABS: Bacteria,Urine Few per hpf (None-Few); Bilirubin,Urine Negative (Negative); Blood,Urine Small (Negative); Clarity,Urine Clear (Clear); Color,Urine Yellow (Yellow); Glucose,Urine (UA) Normal (Normal); Ketones,Urine Negative (Negative); Leukocyte Esterase,Urine Negative (Negative); Mucus,Urine Few per lpf (None-Few); Nitrite,Urine Negative (Negative); Protein,Urine 100 mg/dL (Neg-Trace); RBC,Urine 0-3 per hpf (0-3); Specific Gravity,Urine 1.021 (1.010-1.025); Urobilinogen,Urine Normal (Normal); WBC,Urine 0-3 per hpf (0-3)
[2020-11-03 15:53] LABS: Amphetamine Screen,Urine Negative ng/mL (Cutoff=1000); Barbiturate Screen,Urine Negative ng/mL (Cutoff=200); Benzodiazepines Screen,Urine Negative ng/mL (Cutoff=200); Cannabinoid Screen,Urine Negative ng/mL (Cutoff = 50); Cocaine Screen,Urine Negative ng/mL (Cutoff= 300); Opiate Screen,Urine Negative ng/mL (Cutoff=300); Phencyclidine Screen,Urine Negative ng/mL (Cutoff=25)
[2020-11-03 15:58] LABS: Alanine Aminotransferase 7 Units/L (7-52); Albumin 3.3 g/dL (3.5-5.7); Albumin/Globulin Ratio 0.9 (1.1-2.2); Alkaline Phosphatase 83 Units/L (34-104); Aspartate Amino Transferase 9 Units/L (13-39); BUN/Creatinine Ratio 13 (6-26); Bilirubin,Direct 0.1 mg/dL (0.0-0.2); Bilirubin,Indirect 0.4 mg/dL (0.0-1.0); Bilirubin,Total 0.5 mg/dL (0.3-1.0); Blood Urea Nitrogen 14 mg/dL (8-23); Calcium 9.7 mg/dL (8.6-10.3); Carbon Dioxide 23 mEq/L (23-29); Chloride 105 mEq/L (98-107); Ethanol < 10 mg/dL (Less than 10); Globulin 3.5 g/dL (2.4-3.5); Glucose 102 mg/dL (70-105); Osmolality,Calculated 283 (280-300); Sodium 136 mEq/L (136-145); Total Protein 6.8 g/dL (6.4-8.9); Troponin I < 0.03 ng/mL (< 0.04); eGFR For African Americans 60 (> 60); eGFR For Non-African Americans 49 (> 60)
[2020-11-03] MEDS ORDERED: cefTRIAXone 1,000 MG in 0.9 % Sodium Chloride Mini Bag 100 ML IVPB ONE (17:32)
[2020-11-03] MEDS ORDERED: Ondansetron 4 MG/2 ML VIAL IVP PRN (18:12)
[2020-11-03] MEDS ORDERED: Naloxone 0.4 MG/ML INJ IVP PRN (18:12)
[2020-11-03] MEDS ORDERED: Dextrose Gel 15 GM/37.5 ML TUBE PO PRN ×2 (18:35)
[2020-11-03] MEDS ORDERED: D5% in Water 1,000 ML IVC PRN (18:35)
[2020-11-03] MEDS ORDERED: *HR* Dextrose 50 % in Water (Vial) 50 ML VIAL IVP PRN (18:35)
[2020-11-03] MEDS: Ringers Solution, Lactated 1,000 ML IVC SCH (19:08)
[2020-11-03] MEDS: Insulin LISPRO 300 UNITS/3 ML VIAL SUBQ SCH (20:15)
[2020-11-03] MEDS: *HR* Heparin 5,000 UNIT/ML VIAL SQ SCH (20:36)
[2020-11-03] MEDS: Sucralfate 1 GM TABLET PO SCH (20:36)
[2020-11-04] MEDS: *HR* Heparin 5,000 UNIT/ML VIAL SQ SCH ×3 (06:28→21:16)
[2020-11-04] MEDS: Insulin LISPRO 300 UNITS/3 ML VIAL SUBQ SCH ×4 (07:58→21:16)
[2020-11-04] MEDS: Sucralfate 1 GM TABLET PO SCH ×4 (09:08→19:26)
[2020-11-04] MEDS: Aspirin Enteric Coated 81 MG Tablet PO SCH (09:08)
[2020-11-04] MEDS: amLODIPine 5 MG TABLET PO SCH (09:08)
[2020-11-04] MEDS: FLUoxetine 20 MG CAPSULE PO SCH (09:09)
[2020-11-04] MEDS: Ringers Solution, Lactated 1,000 ML IVC SCH (09:11)
[2020-11-04 09:24] LABS: Eosinophils % 37.9 %; Hemoglobin 11.7 g/dL (11.5-15.4)
[2020-11-04 09:25] LABS: Basophils % 1.9 %; Eosinophils # 0.6 K/mcL (0.0-0.6); Hematocrit 36.5 % (35.3-44.9); Lymphocytes # 0.5 K/mcL (0.6-4.6); Lymphocytes % 31.7 %; Mean Corpuscular HGB Conc 32.1 g/dL (31.6-35.5); Mean Corpuscular Hemoglobin 31.5 pg (28.0-33.3); Mean Corpuscular Volume 98.4 fL (83.0-100.0); Mean Platelet Volume 10.9 fL (9.4-12.4); Monocytes # 0.3 K/mcL (0.0-1.3); Neutrophils # 0.2 K/mcL (1.6-8.9); Platelet Count 197 K/mcL (140-400); Red Blood Count 3.71 M/mcL (3.82-4.97); Red Cell Distribution Width 13.2 % (11.5-14.5); Segmented Neutrophils % 10.5 %; White Blood Count 1.6 K/mcL (4.3-11.1)
[2020-11-04 09:40] LABS: BUN/Creatinine Ratio 13 (6-26); Blood Urea Nitrogen 13 mg/dL (8-23); Calcium 9.5 mg/dL (8.6-10.3); Carbon Dioxide 25 mEq/L (23-29); Chloride 104 mEq/L (98-107); Glucose 154 mg/dL (70-105); Osmolality,Calculated 287 (280-300); Potassium 3.5 mEq/L (3.5-5.1); Sodium 137 mEq/L (136-145); eGFR For African Americans > 60 (> 60); eGFR For Non-African Americans 53 (> 60)
[2020-11-04 09:50] LABS: Platelet Estimate Normal (Normal)
[2020-11-04] MEDS ORDERED: *HR* HYDROmorphone 2 MG TABLET PO PRN (10:21)
[2020-11-04] MEDS: cefTRIAXone 1,000 MG in 0.9 % Sodium Chloride Mini Bag 100 ML IVPB SCH (16:39)
[2020-11-05 05:07] LABS: Red Cell Distribution Width 12.9 % (11.5-14.5)
[2020-11-05 05:09] LABS: Eosinophils % 32.5 %; Hematocrit 29.8 % (35.3-44.9); Hemoglobin 9.9 g/dL (11.5-15.4); Immature Granulocytes % 0.5 % (0-4); Lymphocytes # 0.9 K/mcL (0.6-4.6); Lymphocytes % 44.2 %; Mean Corpuscular HGB Conc 33.2 g/dL (31.6-35.5); Mean Corpuscular Hemoglobin 31.3 pg (28.0-33.3); Mean Corpuscular Volume 94.3 fL (83.0-100.0); Mean Platelet Volume 11.5 fL (9.4-12.4); Monocytes % 17.3 %; Neutrophils # 0.1 K/mcL (1.6-8.9); Platelet Count 187 K/mcL (140-400); Red Blood Count 3.16 M/mcL (3.82-4.97); Segmented Neutrophils % 4.5 %
[2020-11-05 05:16] LABS: Eosinophils # 0.7 K/mcL (0.0-0.6); Monocytes # 0.4 K/mcL (0.0-1.3)
[2020-11-05 05:27] LABS: BUN/Creatinine Ratio 13 (6-26); Blood Urea Nitrogen 11 mg/dL (8-23); Calcium 8.8 mg/dL (8.6-10.3); Carbon Dioxide 23 mEq/L (23-29); Chloride 105 mEq/L (98-107); Glucose 110 mg/dL (70-105); Osmolality,Calculated 282 (280-300); Potassium 3.2 mEq/L (3.5-5.1); Sodium 136 mEq/L (136-145); eGFR For African Americans > 60 (> 60); eGFR For Non-African Americans > 60 (> 60)
[2020-11-05] MEDS: *HR* Heparin 5,000 UNIT/ML VIAL SQ SCH ×3 (05:27→20:10)
[2020-11-05 05:38] LABS: Anisocytosis 1+ (Not Present); Hypochromasia Present (Not Present); Platelet Estimate Normal (Normal)
[2020-11-05] MEDS ORDERED: Potassium Chloride Elixir 20 MEQ/15 ML UDC PO ONE (07:29)
[2020-11-05] MEDS: Insulin LISPRO 300 UNITS/3 ML VIAL SUBQ SCH ×4 (07:48→20:13)
[2020-11-05] MEDS: amLODIPine 5 MG TABLET PO SCH (07:59)
[2020-11-05] MEDS: Sucralfate 1 GM TABLET PO SCH ×4 (08:00→20:10)
[2020-11-05] MEDS: FLUoxetine 20 MG CAPSULE PO SCH (08:00)
[2020-11-05] MEDS: Aspirin Enteric Coated 81 MG Tablet PO SCH (08:00)
[2020-11-05] MEDS: cefTRIAXone 1,000 MG in 0.9 % Sodium Chloride Mini Bag 100 ML IVPB SCH (18:04)
[2020-11-05] MEDS: Cefdinir 300 MG CAPSULE PO SCH (20:10)
[2020-11-06 01:16] LABS: Hematocrit 33.8 % (35.3-44.9); Hemoglobin 10.8 g/dL (11.5-15.4); Lymphocytes # 1.1 K/mcL (0.6-4.6); Mean Corpuscular Hemoglobin 30.4 pg (28.0-33.3); Mean Corpuscular Volume 95.2 fL (83.0-100.0); Mean Platelet Volume 10.8 fL (9.4-12.4); Monocytes # 0.4 K/mcL (0.0-1.3); Platelet Count 211 K/mcL (140-400); Red Blood Count 3.55 M/mcL (3.82-4.97); Red Cell Distribution Width 12.9 % (11.5-14.5); White Blood Count 2.3 K/mcL (4.3-11.1)
[2020-11-06 01:35] LABS: Calcium 9.2 mg/dL (8.6-10.3); Potassium 3.4 mEq/L (3.5-5.1)
[2020-11-06 02:04] LABS: Eosinophils # 0.5 K/mcL (0.0-0.6); Neutrophils # 0.3 K/mcL (1.6-8.9); Platelet Estimate Normal (Normal)
[2020-11-06] MEDS: *HR* Heparin 5,000 UNIT/ML VIAL SQ SCH (07:03)
[2020-11-06] MEDS: Insulin LISPRO 300 UNITS/3 ML VIAL SUBQ SCH ×2 (08:10→12:00)
[2020-11-06] MEDS: Aspirin Enteric Coated 81 MG Tablet PO SCH (08:18)
[2020-11-06] MEDS: Sucralfate 1 GM TABLET PO SCH ×2 (08:19→13:25)
[2020-11-06] MEDS: amLODIPine 5 MG TABLET PO SCH (08:21)
[2020-11-06] MEDS: Cefdinir 300 MG CAPSULE PO SCH (08:22)
[2020-11-06] MEDS: FLUoxetine 20 MG CAPSULE PO SCH (08:23)
[2020-11-06 14:05] VITALS: BP 139/65
== END 2020-11-06 15:14 | disposition home health service (06) ==
LOC: 3ANU 14:23 → EMEROOARM 14:23 → SUATTDRO 18:08 → 3ANU 18:44
PROVIDERS: ADMIT Student in an Organized Health Care Education/Training Program; ATTEND Internal Medicine

== ENCOUNTER 2022-02-28 14:03 | Inpatient (IN) ==
[2022-02-28] MEDS ORDERED: Naloxone 0.4 MG/ML INJ IVP PRN (14:50)
[2022-02-28] MEDS ORDERED: Ondansetron ODT 4 MG TAB.RAPDIS SL PRN (14:50)
[2022-02-28] MEDS ORDERED: *HR* Dextrose 50 % in Water (Syg) 50 ML SYRINGE IVP PRN (16:26)
[2022-02-28] MEDS ORDERED: Dextrose 4 GM Chewable Tablets PO PRN ×2 (16:26)
[2022-02-28] MEDS ORDERED: D5% in Water 1,000 ML IVC PRN (16:26)
[2022-02-28] MEDS ORDERED: hydrOXYzine pamoate 25 MG CAPSULE PO PRN (16:36)
[2022-02-28] MEDS ORDERED: Haloperidol Lactate 5 MG/ML VIAL IVP ONE (16:38)
[2022-02-28] MEDS ORDERED: haloperidoL 1 MG TABLET PO ONE (16:40)
[2022-02-28 17:06] LABS: Mean Platelet Volume 10.2 fL (9.4-12.4)
[2022-02-28 17:08] LABS: Basophils % 1.2 %; Eosinophils # 0.3 K/mcL (0.0-0.6); Eosinophils % 17.6 %; Hematocrit 32.2 % (35.3-44.9); Lymphocytes # 0.6 K/mcL (0.6-4.6); Lymphocytes % 36.4 %; Mean Corpuscular HGB Conc 31.1 g/dL (31.6-35.5); Mean Corpuscular Hemoglobin 28.7 pg (28.0-33.3); Mean Corpuscular Volume 92.5 fL (83.0-100.0); Monocytes # 0.5 K/mcL (0.0-1.3); Monocytes % 28.5 %; Neutrophils # 0.3 K/mcL (1.6-8.9); Platelet Count 243 K/mcL (140-400); Red Blood Count 3.48 M/mcL (3.82-4.97); Red Cell Distribution Width 12.7 % (11.5-14.5); Segmented Neutrophils % 16.3 %; White Blood Count 1.7 K/mcL (4.3-11.1)
[2022-02-28] MEDS: Sucralfate 1 GM TABLET PO SCH ×2 (17:12→21:12)
[2022-02-28] MEDS: Nystatin POWDER 30 GM BOTTLE TP SCH ×2 (17:13→21:13)
[2022-02-28 17:15] LABS: Platelet Estimate Normal (Normal)
[2022-02-28 17:24] LABS: Phosphorous 2.4 mg/dL (2.7-4.5)
[2022-02-28 17:25] LABS: BUN/Creatinine Ratio 20 (6-26); Blood Urea Nitrogen 21 mg/dL (8-23); Calcium 9.4 mg/dL (8.6-10.3); Carbon Dioxide 25 mEq/L (23-29); Chloride 104 mEq/L (98-107); Glucose 156 mg/dL (70-105); Osmolality,Calculated 288 (280-300); Potassium 4.7 mEq/L (3.5-5.1); Sodium 136 mEq/L (136-145); eGFR For African Americans > 60 (> 60); eGFR For Non-African Americans 51 (> 60)
[2022-02-28] MEDS: Insulin LISPRO 300 UNITS/3 ML VIAL SUBQ SCH ×2 (17:29→21:12)
[2022-02-28] MEDS ORDERED: traZODone 50 MG TABLET PO PRN (17:39)
[2022-02-28] MEDS: 0.9 % Sodium Chloride 1,000 ML IVC SCH (20:58)
[2022-02-28] MEDS: Cefdinir 300 MG CAPSULE PO SCH (21:11)
[2022-03-01] MEDS: Insulin LISPRO 300 UNITS/3 ML VIAL SUBQ SCH ×4 (09:12→20:49)
[2022-03-01] MEDS: Sucralfate 1 GM TABLET PO SCH ×4 (09:35→20:49)
[2022-03-01] MEDS: FLUoxetine 20 MG CAPSULE PO SCH (09:35)
[2022-03-01] MEDS: Cefdinir 300 MG CAPSULE PO SCH (09:35)
[2022-03-01] MEDS: amLODIPine 5 MG TABLET PO SCH (09:35)
[2022-03-01] MEDS: Nystatin POWDER 30 GM BOTTLE TP SCH (09:35)
[2022-03-01] MEDS: QUEtiapine Fumarate 25 MG TABLET PO SCH ×2 (09:35→20:48)
[2022-03-01] MEDS ORDERED: Fluconazole 150 MG TABLET PO SCH (12:15)
[2022-03-01] MEDS: 0.9 % Sodium Chloride 1,000 ML IVC SCH (15:32)
[2022-03-01 17:11] LABS: BUN/Creatinine Ratio 16 (6-26); Blood Urea Nitrogen 17 mg/dL (8-23); Calcium 9.1 mg/dL (8.6-10.3); Carbon Dioxide 27 mEq/L (23-29); Chloride 103 mEq/L (98-107); Glucose 104 mg/dL (70-105); Osmolality,Calculated 288 (280-300); Potassium 3.9 mEq/L (3.5-5.1); Sodium 138 mEq/L (136-145); eGFR For African Americans > 60 (> 60); eGFR For Non-African Americans 50 (> 60)
[2022-03-01] MEDS: [UNRECOGNIZED DRUG - OTHER] TP SCH (20:49)
[2022-03-01] MEDS: CLOTRIMAZOLE TP SCH (20:49)
[2022-03-01] MEDS: APPL TP SCH (20:49)
[2022-03-01] MEDS ORDERED: TRIAMCINOLONE TP SCH (21:00)
[2022-03-01] MEDS ORDERED: CLOTRIMAZOLE TP SCH (21:00)
[2022-03-02 08:33] VITALS: O2SAT 98
[2022-03-02] MEDS: Insulin LISPRO 300 UNITS/3 ML VIAL SUBQ SCH ×2 (09:04→12:42)
[2022-03-02] MEDS: Sucralfate 1 GM TABLET PO SCH ×2 (09:55→12:43)
[2022-03-02] MEDS: CLOTRIMAZOLE TP SCH (09:56)
[2022-03-02] MEDS: QUEtiapine Fumarate 25 MG TABLET PO SCH (09:56)
[2022-03-02] MEDS: amLODIPine 5 MG TABLET PO SCH (09:56)
[2022-03-02] MEDS: [UNRECOGNIZED DRUG - OTHER] TP SCH (09:56)
[2022-03-02] MEDS: APPL TP SCH (09:56)
[2022-03-02] MEDS: FLUoxetine 20 MG CAPSULE PO SCH (09:56)
[2022-03-02 12:29] VITALS: BP 154/75; PULSE 70; TEMP 98.2
[2022-03-02] MEDS ORDERED: Doxycycline 100 MG CAPSULE PO SCH (13:30)
== END 2022-03-02 15:10 | disposition hospice, home (50) | DRG 607 ==
LOC: 3ANU
PROVIDERS: ADMIT Surgery; ATTEND Internal Medicine